=== PATIENT | female | born 1950 | race Caucasian/White ===

== ENCOUNTER → 2018-11-27 18:25 | Outpatient (CLI) | payer MEDICARE, SELFPAY ==
[2018-11-16 14:29] VITALS: BMI 27.8
[2018-11-27 18:48] LABS: Absolute Lymphocyte Count 2.73 X10^3/ul (0.83-4.51); Absolute Neutrophil Count 3.6 X10^3/uL (2.0-7.7); Basophil# 0.09 X10^3/uL; Basophil% 1.2 % (0-1); Eosinophil# 0.31 X10^3/uL; Eosinophils% 4.3 % (0-5); Hematocrit 42.6 % (37-47); Hemoglobin 14.1 g/dl (12.0-15.0); Lymphocyte # 2.73 X10^3/ul (4.0); Lymphocyte % 37.5 % (19-41); Mean Corp Hgb Conc 33.1 g/gl (32-36); Mean Corpuscular Hgb 31.8 pg (27.0-32.0); Mean Corpuscular Volume 95.9 fL (81-99); Monocyte# 0.57 X10^3/uL; Monocyte% 7.8 % (0-10); Neutrophil # 3.56 X10^3/uL (2.7-7.7); Neutrophil % 48.9 % (47-70); Platelet Count 251 K/mm3 (150-450); RBC Distribution Width SD 44.9 fl (35.1-43.9); Red Blood Count 4.44 M/mm3 (4.2-5.4); White Blood Count 7.3 K/mm3 (4.4-11.0)
[2018-11-27 18:50] LABS: POSITIVE COUNT NO; POSITIVE DIFFERENTIAL NO; POSITIVE MORPHOLOGY NO
[2018-11-27 18:59] LABS: ALB/GLOB Ratio 1.2 RATIO (0.9-2.4); AST(SGOT) 21 U/L (15-37); Alanine Aminotransfer ALT/SGPT 52 U/L (13-56); Albumin, Serum 3.8 g/dL (3.2-5.0); Alkaline Phosphatase 106 U/L (45-117); Anion Gap 8 (5-15); BUN 14 mg/dL (7-18); BUN/Creat Ratio 16.6 RATIO (10-20); Calcium,Total 9.3 mg/dL (8.5-10.1); Chloride 106 mmol/L (98-107); Cholesterol 256 mg/dL (200); Creatinine, Serum 0.84 mg/dL (0.55-1.02); EST Glomerular Filtration Rate 72 mL/min (>60); Est Glom Filt Rate - Afr Amer 87 mL/min (>60); Globulin 3.3 g/dL (2.2-4.2); Glucose 109 mg/dL (74-106); High Density Lipoprotein 53 mg/dL; Potassium 4.3 mmol/L (3.5-5.1); Protein, Total 7.1 g/dL (6.4-8.2); Sodium Level 142 mmol/L (136-145); Triglycerides 534 mg/dL
== END ==
PROVIDERS: Referring Provider Nurse Practitioner; Visit Provider Nurse Practitioner
DX: I10 Essential (primary) hypertension (principal)
CPT/HCPCS: 80053; 80061; 85025

== ENCOUNTER → 2019-10-27 | Outpatient (CLI) | payer MEDICARE, SELFPAY ==
[2019-10-27 18:10] VITALS: BMI 27.6
[2019-10-27 21:48] LABS: Absolute Lymphocyte Count 2.67 X10^3/uL (0.83-4.51); Absolute Neutrophil Count 6.3 X10^3/uL (2.0-7.7); Basophil# 0.08 X10^3/uL; Basophil% 0.8 % (0-1); Eosinophil# 0.33 X10^3/uL; Eosinophils% 3.3 % (0-5); Hematocrit 39.8 % (37-47); Hemoglobin 13.6 g/dL (12.0-15.0); Lymphocyte # 2.67 X10^3/ul (4.0); Lymphocyte % 26.5 % (19-41); Mean Corp Hgb Conc 34.2 g/dL (32-36); Mean Corpuscular Hgb 31.7 pg (27.0-32.0); Mean Corpuscular Volume 92.8 fL (81-99); Mean Platelet Vol. 12.4 fl (6.2-12.0); Monocyte# 0.65 X10^3/uL; Monocyte% 6.4 % (0-10); NRBC Flagged by Analyzer 0 % (0-5); Neutrophil # 6.33 X10^3/uL (2.7-7.7); Neutrophil % 62.7 % (47-70); Platelet Count 195 K/mm3 (150-450); RBC Distribution Width CV 12.2 % (11.6-14.6); RBC Distribution Width SD 41.7 fl (35.1-43.9); Red Blood Count 4.29 M/mm3 (4.2-5.4); White Blood Count 10.1 K/mm3 (4.4-11.0)
[2019-10-27 21:52] LABS: ALB/GLOB Ratio 1.1 RATIO (0.9-2.4); AST(SGOT) 23 U/L (15-37); Alanine Aminotransfer ALT/SGPT 45 U/L (13-56); Albumin, Serum 3.6 g/dL (3.2-5.0); Alkaline Phosphatase 105 U/L (45-117); Anion Gap 4 (5-15); BUN 23 mg/dL (7-18); BUN/Creat Ratio 23.1 RATIO (10-20); Calcium,Total 9.2 mg/dL (8.5-10.1); Chloride 107 mmol/L (98-107); Cholesterol 243 mg/dL (200); EST Glomerular Filtration Rate 59 mL/min (>60); Est Glom Filt Rate - Afr Amer 71 mL/min (>60); Globulin 3.2 g/dL (2.2-4.2); Glucose 278 mg/dL (74-106); High Density Lipoprotein 39 mg/dL; Potassium 4.3 mmol/L (3.5-5.1); Protein, Total 6.8 g/dL (6.4-8.2); Sodium Level 139 mmol/L (136-145); Thyroid Stim Hormone (TSH) 1.16 uIU/mL (0.358-3.74); Triglycerides 532 mg/dL
== END | disposition home or self-care (01) ==
PROVIDERS: Referring Provider Nurse Practitioner; Visit Provider Nurse Practitioner
DX: I10 Essential (primary) hypertension (principal); E78.5 Hyperlipidemia, unspecified; E11.65 Type 2 diabetes mellitus with hyperglycemia
CPT/HCPCS: 80053; 80061; 84443; 85025

== ENCOUNTER → 2019-12-09 21:09 | Outpatient (CLI) | payer MEDICARE, SELFPAY ==
[2019-12-09 15:02] VITALS: BMI 27.1
[2019-12-09 21:28] LABS: ALB/GLOB Ratio 1.2 RATIO (0.9-2.4); AST(SGOT) 19 U/L (15-37); Alanine Aminotransfer ALT/SGPT 28 U/L (13-56); Alkaline Phosphatase 88 U/L (45-117); Anion Gap 8 (5-15); BUN 16 mg/dL (7-18); BUN/Creat Ratio 16.4 RATIO (10-20); Calcium,Total 9.7 mg/dL (8.5-10.1); Chloride 106 mmol/L (98-107); Creatinine, Serum 0.97 mg/dL (0.55-1.02); EST Glomerular Filtration Rate 60 mL/min (>60); Est Glom Filt Rate - Afr Amer 73 mL/min (>60); Globulin 3.4 g/dL (2.2-4.2); Glucose 183 mg/dL (74-106); Magnesium 1.9 mg/dL (1.6-2.6); Potassium 3.8 mmol/L (3.5-5.1); Protein, Total 7.4 g/dL (6.4-8.2); Sodium Level 142 mmol/L (136-145)
== END ==
PROVIDERS: Visit Provider Nurse Practitioner
DX: R25.2 Cramp and spasm (principal)
CPT/HCPCS: 80053; 83735

== ENCOUNTER → 2020-10-15 22:46 | Outpatient (CLI) | payer MEDICARE, SELFPAY ==
[2020-10-15 18:26] VITALS: BMI 25.4
[2020-10-15 23:03] LABS: Absolute Neutrophil Count 4.6 X10^3/uL (2.0-7.7); Basophil# 0.11 X10^3/uL; Basophil% 1.2 % (0-1); Eosinophil# 0.45 X10^3/uL; Eosinophils% 4.9 % (0-5); Hemoglobin 14.4 g/dL (12.0-15.0); Lymphocyte % 35.9 % (19-41); Mean Corp Hgb Conc 32.7 g/dL (32-36); Mean Corpuscular Hgb 30.8 pg (27.0-32.0); Mean Corpuscular Volume 94.2 fL (81-99); Mean Platelet Vol. 11.9 fl (6.2-12.0); Monocyte# 0.69 X10^3/uL; Monocyte% 7.5 % (0-10); NRBC Flagged by Analyzer 0 % (0-5); Neutrophil # 4.62 X10^3/uL (2.7-7.7); Neutrophil % 50.2 % (47-70); Platelet Count 240 K/mm3 (150-450); RBC Distribution Width CV 12.3 % (11.6-14.6); RBC Distribution Width SD 42.7 fl (35.1-43.9); Red Blood Count 4.67 M/mm3 (4.2-5.4); White Blood Count 9.2 K/mm3 (4.4-11.0)
[2020-10-15 23:23] LABS: ALB/GLOB Ratio 1.3 RATIO (0.9-2.4); AST(SGOT) 20 U/L (15-37); Alanine Aminotransfer ALT/SGPT 28 U/L (13-56); Albumin, Serum 4.1 g/dL (3.2-5.0); Alkaline Phosphatase 84 U/L (45-117); Anion Gap 7 (5-15); BUN 24 mg/dL (7-18); BUN/Creat Ratio 26.1 RATIO (10-20); Calcium,Total 9.5 mg/dL (8.5-10.1); Chloride 104 mmol/L (98-107); Cholesterol 203 mg/dL (200); Creatinine, Serum 0.92 mg/dL (0.55-1.02); EST Glomerular Filtration Rate 64 mL/min (>60); Est Glom Filt Rate - Afr Amer 78 mL/min (>60); Globulin 3.1 g/dL (2.2-4.2); Glucose 132 mg/dL (74-106); High Density Lipoprotein 60 mg/dL; Magnesium 2.2 mg/dL (1.6-2.6); Potassium 3.7 mmol/L (3.5-5.1); Protein, Total 7.2 g/dL (6.4-8.2); Sodium Level 140 mmol/L (136-145); Thyroid Stim Hormone (TSH) 3.19 uIU/mL (0.358-3.74); Triglycerides 352 mg/dL; Very Low Density Lipoprotein 70 mg/dL (5-40)
[2020-10-18 21:20] LABS: Vitamin D 1,25-Dihydroxy 33.9 pg/mL (19.9-79.3)
== END ==
PROVIDERS: PCP Nurse Practitioner; Referring Provider Nurse Practitioner; Visit Provider Nurse Practitioner
DX: E11.65 Type 2 diabetes mellitus with hyperglycemia (principal); I10 Essential (primary) hypertension; E83.42 Hypomagnesemia; E55.9 Vitamin D deficiency, unspecified
CPT/HCPCS: 80053; 80061; 82652; 83735; 84443; 85025

== ENCOUNTER → 2021-05-09 | Outpatient (CLI) | payer MEDICARE, SELFPAY ==
[2021-05-09 22:04] LABS: ALB/GLOB Ratio 1.4 RATIO (0.9-2.4); AST(SGOT) 17 U/L (15-37); Alanine Aminotransfer ALT/SGPT 27 U/L (13-56); Albumin, Serum 3.8 g/dL (3.2-5.0); Alkaline Phosphatase 74 U/L (45-117); Anion Gap 7 (5-15); BUN 29 mg/dL (7-18); BUN/Creat Ratio 33.3 RATIO (10-20); Calcium,Total 8.7 mg/dL (8.5-10.1); Chloride 105 mmol/L (98-107); Creatinine, Serum 0.87 mg/dL (0.55-1.02); EST Glomerular Filtration Rate 68 mL/min (>60); Est Glom Filt Rate - Afr Amer 83 mL/min (>60); Globulin 2.8 g/dL (2.2-4.2); Glucose 109 mg/dL (74-106); Potassium 4.1 mmol/L (3.5-5.1); Protein, Total 6.6 g/dL (6.4-8.2); Sodium Level 139 mmol/L (136-145)
[2021-05-09 22:07] LABS: Hemoglobin A1c 6.7 % (3.8-5.6)
== END | disposition home or self-care (01) ==
PROVIDERS: PCP Nurse Practitioner; Visit Provider Nurse Practitioner
DX: E11.65 Type 2 diabetes mellitus with hyperglycemia (principal); I10 Essential (primary) hypertension
CPT/HCPCS: 80053; 83036

== ENCOUNTER → 2021-09-16 | Outpatient (CLI) | payer MEDICARE, SELFPAY ==
[2021-09-16 22:00] LABS: ALB/GLOB Ratio 1.2 RATIO (0.9-2.4); AST(SGOT) 19 U/L (15-37); Alanine Aminotransfer ALT/SGPT 37 U/L (13-56); Albumin, Serum 3.9 g/dL (3.2-5.0); Alkaline Phosphatase 75 U/L (45-117); Anion Gap 7 (5-15); BUN 28 mg/dL (7-18); BUN/Creat Ratio 33.2 RATIO (10-20); Calcium,Total 9.4 mg/dL (8.5-10.1); Chloride 104 mmol/L (98-107); Cholesterol 181 mg/dL (200); Creatinine, Serum 0.84 mg/dL (0.55-1.02); EST Glomerular Filtration Rate 71 mL/min (>60); Est Glom Filt Rate - Afr Amer 86 mL/min (>60); Globulin 3.2 g/dL (2.2-4.2); Glucose 127 mg/dL (74-106); High Density Lipoprotein 54 mg/dL; Potassium 4.3 mmol/L (3.5-5.1); Protein, Total 7.1 g/dL (6.4-8.2); Sodium Level 140 mmol/L (136-145); Triglycerides 292 mg/dL; Very Low Density Lipoprotein 58 mg/dL (5-40)
[2021-09-16 22:02] LABS: Absolute Lymphocyte Count 2.83 X10^3/uL (0.83-4.51); Basophil# 0.08 X10^3/uL; Basophil% 0.9 % (0-1); Eosinophil# 0.38 X10^3/uL; Eosinophils% 4.3 % (0-5); Hematocrit 42.2 % (37-47); Lymphocyte # 2.83 X10^3/ul (0.83-4.51); Lymphocyte % 31.7 % (19-41); Mean Corp Hgb Conc 33.2 g/dL (32-36); Mean Corpuscular Hgb 31.2 pg (27.0-32.0); Mean Platelet Vol. 12.1 fl (6.2-12.0); Monocyte# 0.64 X10^3/uL; Monocyte% 7.2 % (0-10); NRBC Flagged by Analyzer 0 % (0-5); Neutrophil # 4.95 X10^3/uL (2.7-7.7); Neutrophil % 55.5 % (47-70); Platelet Count 267 K/mm3 (150-450); RBC Distribution Width CV 12.6 % (11.6-14.6); RBC Distribution Width SD 43.6 fl (35.1-43.9); Red Blood Count 4.49 M/mm3 (4.2-5.4); White Blood Count 8.9 K/mm3 (4.4-11.0)
[2021-09-16 22:25] LABS: Hemoglobin A1c 6.6 % (3.8-5.6)
== END | disposition home or self-care (01) ==
PROVIDERS: PCP Nurse Practitioner; Referring Provider Nurse Practitioner; Visit Provider Nurse Practitioner
DX: E78.2 Mixed hyperlipidemia (principal); E11.65 Type 2 diabetes mellitus with hyperglycemia; I10 Essential (primary) hypertension
CPT/HCPCS: 80053; 80061; 83036; 85025

== ENCOUNTER → 2022-08-25 | Outpatient (CLI) | payer MEDICARE, SELFPAY ==
[2022-08-25 21:50] LABS: Absolute Lymphocyte Count 2.62 X10^3/uL (0.83-4.51); Absolute Neutrophil Count 4.8 X10^3/uL (2.0-7.7); Basophil# 0.09 X10^3/uL; Basophil% 1.1 % (0-1); Eosinophil# 0.21 X10^3/uL; Eosinophils% 2.5 % (0-5); Hematocrit 42.4 % (37-47); Hemoglobin 14.4 g/dL (12.0-15.0); Lymphocyte # 2.62 X10^3/ul (0.83-4.51); Lymphocyte % 31.5 % (19-41); Mean Corpuscular Hgb 31.3 pg (27.0-32.0); Mean Corpuscular Volume 92.2 fL (81-99); Mean Platelet Vol. 11.7 fl (6.2-12.0); Monocyte# 0.62 X10^3/uL; Monocyte% 7.4 % (0-10); NRBC Flagged by Analyzer 0 % (0-5); Neutrophil # 4.75 X10^3/uL (2.7-7.7); Platelet Count 313 K/mm3 (150-450); RBC Distribution Width CV 12.4 % (11.6-14.6); White Blood Count 8.3 K/mm3 (4.4-11.0)
[2022-08-25 21:59] LABS: ALB/GLOB Ratio 1.2 RATIO (0.9-2.4); AST(SGOT) 19 U/L (15-37); Alanine Aminotransfer ALT/SGPT 30 U/L (13-56); Alkaline Phosphatase 88 U/L (45-117); Anion Gap 5 (5-15); BUN 28 mg/dL (7-18); BUN/Creat Ratio 29.9 RATIO (10-20); Calcium,Total 9.2 mg/dL (8.5-10.1); Chloride 104 mmol/L (98-107); Cholesterol 202 mg/dL (200); Creatinine, Serum 0.94 mg/dL (0.55-1.02); EST Glomerular Filtration Rate 63 mL/min (>60); Est Glom Filt Rate - Afr Amer 76 mL/min (>60); Globulin 3.2 g/dL (2.2-4.2); Glucose 142 mg/dL (74-106); High Density Lipoprotein 51 mg/dL; Protein, Total 7.2 g/dL (6.4-8.2); Sodium Level 137 mmol/L (136-145); Triglycerides 273 mg/dL; Very Low Density Lipoprotein 55 mg/dL (5-40)
[2022-08-25 22:10] LABS: Hemoglobin A1c 6.8 % (3.8-5.6)
== END | disposition home or self-care (01) ==
PROVIDERS: PCP Nurse Practitioner; Visit Provider Nurse Practitioner
DX: I10 Essential (primary) hypertension (principal); E11.65 Type 2 diabetes mellitus with hyperglycemia; E78.2 Mixed hyperlipidemia
CPT/HCPCS: 80053; 80061; 83036; 85025

== ENCOUNTER → 2023-04-13 | Outpatient (CLI) | payer MEDICARE, SELFPAY ==
[2023-04-13 21:08] LABS: ALB/GLOB Ratio 1.2 RATIO (0.9-2.4); AST(SGOT) 19 U/L (15-37); Alanine Aminotransfer ALT/SGPT 20 U/L (13-56); Albumin, Serum 3.7 g/dL (3.2-5.0); Alkaline Phosphatase 79 U/L (45-117); Anion Gap 7 (5-15); BUN 23 mg/dL (7-18); BUN/Creat Ratio 22.1 RATIO (10-20); Calcium,Total 9.3 mg/dL (8.5-10.1); Chloride 105 mmol/L (98-107); Creatinine, Serum 1.04 mg/dL (0.55-1.02); EST Glomerular Filtration Rate 55 mL/min (>60); Est Glom Filt Rate - Afr Amer 67 mL/min (>60); Globulin 3.1 g/dL (2.2-4.2); Glucose 205 mg/dL (74-106); Potassium 4.1 mmol/L (3.5-5.1); Protein, Total 6.8 g/dL (6.4-8.2); Sodium Level 141 mmol/L (136-145); Uric Acid 4.3 mg/dL (2.6-6.0)
[2023-04-13 21:28] LABS: Absolute Lymphocyte Count 1.94 X10^3/uL (0.83-4.51); Absolute Neutrophil Count 4.4 X10^3/uL (2.0-7.7); Basophil# 0.09 X10^3/uL; Basophil% 1.3 % (0-1); Eosinophil# 0.25 X10^3/uL; Eosinophils% 3.5 % (0-5); Hematocrit 43.1 % (37-47); Hemoglobin 14.3 g/dL (12.0-15.0); Lymphocyte # 1.94 X10^3/ul (0.83-4.51); Lymphocyte % 26.9 % (19-41); Mean Corp Hgb Conc 33.2 g/dL (32-36); Mean Corpuscular Hgb 31.6 pg (27.0-32.0); Mean Corpuscular Volume 95.4 fL (81-99); Mean Platelet Vol. 12.3 fl (6.2-12.0); Monocyte# 0.53 X10^3/uL; Monocyte% 7.4 % (0-10); NRBC Flagged by Analyzer 0 % (0-5); Neutrophil # 4.37 X10^3/uL (2.7-7.7); Neutrophil % 60.6 % (47-70); Platelet Count 232 K/mm3 (150-450); RBC Distribution Width CV 12.3 % (11.6-14.6); Red Blood Count 4.52 M/mm3 (4.2-5.4); White Blood Count 7.2 K/mm3 (4.4-11.0)
[2023-04-13 21:49] LABS: Hemoglobin A1c 7.2 % (3.8-5.6)
== END | disposition home or self-care (01) ==
PROVIDERS: PCP Nurse Practitioner; Visit Provider Nurse Practitioner
DX: E11.65 Type 2 diabetes mellitus with hyperglycemia (principal); I10 Essential (primary) hypertension; M19.90 Unspecified osteoarthritis, unspecified site; E78.2 Mixed hyperlipidemia
CPT/HCPCS: 80053; 83036; 84550; 85025

== ENCOUNTER → 2024-01-14 | Outpatient (CLI) | payer MEDICARE, SELFPAY ==
[2024-01-14 21:43] LABS: Absolute Lymphocyte Count 2.26 X10^3/uL (0.83-4.51); Absolute Neutrophil Count 5.1 X10^3/uL (2.0-7.7); Basophil% 1.2 % (0-1); Eosinophil# 0.33 X10^3/uL; Eosinophils% 3.9 % (0-5); Hematocrit 42.3 % (37-47); Lymphocyte # 2.26 X10^3/ul (0.83-4.51); Lymphocyte % 26.9 % (19-41); Mean Corp Hgb Conc 33.1 g/dL (32-36); Mean Corpuscular Hgb 30.5 pg (27.0-32.0); Mean Corpuscular Volume 92.2 fL (81-99); Mean Platelet Vol. 12.2 fl (6.2-12.0); Monocyte% 7.1 % (0-10); NRBC Flagged by Analyzer 0 % (0-5); Neutrophil # 5.08 X10^3/uL (2.7-7.7); Neutrophil % 60.4 % (47-70); Platelet Count 251 K/mm3 (150-450); RBC Distribution Width CV 12.4 % (11.6-14.6); RBC Distribution Width SD 41.7 fl (35.1-43.9); Red Blood Count 4.59 M/mm3 (4.2-5.4); White Blood Count 8.4 K/mm3 (4.4-11.0)
[2024-01-14 22:06] LABS: ALB/GLOB Ratio 1.3 RATIO (0.9-2.4); AST(SGOT) 19 U/L (15-37); Alanine Aminotransfer ALT/SGPT 25 U/L (13-56); Alkaline Phosphatase 84 U/L (45-117); Anion Gap 10 (5-15); BUN 21 mg/dL (7-18); BUN/Creat Ratio 21.8 RATIO (10-20); Calcium,Total 9.5 mg/dL (8.5-10.1); Chloride 103 mmol/L (98-107); Cholesterol 192 mg/dL (200); Creatinine, Serum 0.96 mg/dL (0.55-1.02); EST Glomerular Filtration Rate 60 mL/min (>60); Est Glom Filt Rate - Afr Amer 73 mL/min (>60); Globulin 3.1 g/dL (2.2-4.2); Glucose 158 mg/dL (74-106); High Density Lipoprotein 56 mg/dL; Protein, Total 7.1 g/dL (6.4-8.2); Sodium Level 141 mmol/L (136-145); Triglycerides 275 mg/dL; Very Low Density Lipoprotein 55 mg/dL (5-40)
== END | disposition home or self-care (01) ==
PROVIDERS: PCP Nurse Practitioner; Referring Provider Nurse Practitioner; Visit Provider Nurse Practitioner
DX: I10 Essential (primary) hypertension (principal); E11.65 Type 2 diabetes mellitus with hyperglycemia; E78.5 Hyperlipidemia, unspecified
CPT/HCPCS: 80053; 80061; 85025

== ENCOUNTER → 2024-09-28 | Outpatient (CLI) | payer MEDICARE, SELFPAY | END | disposition home or self-care (01) | PROVIDERS: PCP Nurse Practitioner; Referring Provider Nurse Practitioner; Visit Provider Nurse Practitioner | DX: N30.90 Cystitis, unspecified without hematuria (principal) | CPT/HCPCS: 87077; 87086; 87088; 87186 ==

== ENCOUNTER → 2024-11-28 | Outpatient (CLI) | payer MEDICARE, SELFPAY | END | disposition home or self-care (01) | PROVIDERS: PCP Nurse Practitioner; Referring Provider Nurse Practitioner; Visit Provider Nurse Practitioner | DX: L73.9 Follicular disorder, unspecified (principal) | CPT/HCPCS: 87070; 87077; 87186; 87205 ==

== ENCOUNTER → 2025-01-06 | Outpatient (CLI) | payer MEDICARE, SELFPAY | END | disposition home or self-care (01) | LOC: OLS.AHF 22:12 → LABSPEC 01-07 09:47 | PROVIDERS: PCP Nurse Practitioner; Referring Provider Nurse Practitioner; Visit Provider Nurse Practitioner | DX: J34.89 Other specified disorders of nose and nasal sinuses (principal); Z22.322 Carrier or suspected carrier of Methicillin resistant Staphylococcus aureus; R04.0 Epistaxis | CPT/HCPCS: 87641 ==

== ENCOUNTER → 2025-06-28 | Outpatient (CLI) | payer MEDICARE, SELFPAY ==
[2025-06-28 23:01] LABS: Hematocrit 37.7 % (37-47); Hemoglobin 12.5 g/dL (12.0-15.0); Immature Granulocytes Count 0.020 X10^3/uL (0.0-0.0); Mean Corp Hgb Conc 33.2 g/dL (32-36); Mean Corpuscular Volume 97.7 fL (81-99); Mean Platelet Vol. 12.9 fl (6.2-12.0); NRBC Flagged by Analyzer 0 % (0-5); Platelet Count 174 K/mm3 (150-450); RBC Distribution Width CV 12.8 % (11.6-14.6); RBC Distribution Width SD 45.6 fl (35.1-43.9); Red Blood Count 3.86 M/mm3 (4.2-5.4); White Blood Count 7.4 K/mm3 (4.4-11.0)
[2025-06-28 23:18] LABS: AST(SGOT) 28 U/L (<=31); Alanine Aminotransfer ALT/SGPT 20 U/L (<=34); Albumin, Serum 4.3 g/dL (3.4-4.8); Alkaline Phosphatase 93 U/L (35-104); Anion Gap 13 (5-15); BUN 34 mg/dL (4-19); BUN/Creat Ratio 31.7 RATIO (10-20); Calcium,Total 9.7 mg/dL (7.6-11.0); Carbon Dioxide 24.1 mmol/L (21.0-32.0); Chloride 104 mmol/L (98-108); Cholesterol 151 mg/dL (<=200); Globulin 2.7 g/dL (2.2-4.2); Glucose 160 mg/dL (70-99); Low Density Lipoprotein Calc. 22 mg/dL; Potassium 4.5 mmol/L (3.3-5.1); Triglycerides 381 mg/dL; Very Low Density Lipoprotein 76 mg/dL (5-40); cholesterol:hdl ratio screen 2.87
== END | disposition home or self-care (01) ==
LOC: LABSPEC 22:35
PROVIDERS: PCP Nurse Practitioner; Visit Provider Nurse Practitioner
DX: E87.6 Hypokalemia (principal); E11.65 Type 2 diabetes mellitus with hyperglycemia; E78.2 Mixed hyperlipidemia; I10 Essential (primary) hypertension; N28.9 Disorder of kidney and ureter, unspecified
CPT/HCPCS: 80053; 80061; 83036; 85025

== ENCOUNTER → 2025-08-28 | Outpatient (CLI) | payer MEDICARE, SELFPAY ==
--- OUTSIDE RECORDS SUMMARY | 2025-08-28 22:25 | XMS RPT_ITS | CCD ---
Author Organization [facility] CliniSypr Care Team Providers Care Software Development Specialist Name Role Phone Levy Everett MD Unavailable [phone] Jorge [facility] [employer]USTRIAL SALES REPRESENTATIVE, Soco A Unavailable [phone] Calzada [facility] INDUSTRIAL SALES REPRESENTATIVE, Chandler L Primary Care Provide r Chava Edwards MD Unavailable ELIANA VALENCIA Attending Unavailabl e CALZADA, CHANDLER L Primary Care Unavailable ABHI CORBIN Attending Unavailable ABHI CORBIN Admitting Unavailable CALZADA, CHANDLER L Primary Care Unavailable Calzada [facility] INDUSTRIAL SALES REPRESENTATIVE, Chandler L Primary Care Provide r Dima Cage MD Unavailable Nicole Knott Unavailable UnavailChio Barger MD Unavailable Chio Motley MD Unavailable Unavailable ZHENG, CHANDLER Primary Care Unavailable MARLINE RODRÍGUEZ MD Attending Unavailable Chio Motley MD Unavailable Brenda Cortes MD Unavailable [phone] Chio Motley MD Unavailable Zheng PRESIDENT [facility] INDUSTRIAL SALES REPRESENTATIVE, Chandler Nyla Primary Care Provide r Chava Edwards MD Unavailable Dima Cage MD Unavailable [phone] Nicole Knott Unavailable Chio Le MD Unavailable [phone] Brenda Cortes MD Unavailable [phone] Chio Motley MD Unavailable Unavailable DERICK GEORGES Attending Unavailable DIMA CAGE Referring Unavailable CALZADA, CHANDLER L Primary Care Unavailable LI, JOSIE H Admitting Unavailable LI, JOSIE H Attending Unavailable CALZADA, CHANDLER L Primary Care Unavailable LI, JOSIE H Referring Unavailable CALZADA, CHANDLER L Primary Care Unavailable AGUSTINA WOODWARD Attending Unavailable CALZADA, CHANDLER L Primary Care Unavailable LI, JOSIE H Referring Unavailable CALZADA, CHANDLER L Primary Care Unavailable [place] TROUBLE LINEMAN-C, Chandler Primary Care Provider Calzada TROUBLE LINEMAN-C, Chandler Attending Provider Calzada TROUBLE LINEMAN-C, Chandler Referring Provider JOSE, BRENDA A Referring Unavailable CALZADA, CHANDLER L Primary Care Unavailable RICKEY CAMACHO Referring Unavailable CALZADA, CHANDLER L Primary Care Unavailable RUSTERHOLTZ, BRENDA A Referring Unavailable CALZADA, CHANDLER L Primary Care Unavailable RUSTERHOLTZ, BRENDA A Referring Unavailable CALZADA, CHANDLER L Primary Care Unavailable RUSTERHOLTZ, BRENDA A Attending Unavailable CALZADA, CHANDLER L Primary Care Unavailable RUSTERHOLTZ, BRENDA A Referring Unavailable RUSTERHOLTZ, BRENDA A Attending Unavailable RUSTERHOLTZ, BRENDA A Referring Unavailable CALZADA, CHANDLER L Primary Care Unavailable RUSTERHOLTZ, BRENDA A Attending Unavailable CALZADA, CHANDLER L Primary Care Unavailable CALZADA, CHANDLER L Primary Care Unavailable Calzada TROUBLE LINEMAN, Chandler Referring Unavailable Calzada TROUBLE LINEMAN, Chandler Primary Care Unavailable Calzada TROUBLE LINEMAN, Chandler Attending Unavailable Calzada TROUBLE LINEMAN, Chandler Referring Unavailable Calzada TROUBLE LINEMAN, Chandler Primary Care Unavailable Calzada TROUBLE LINEMAN, Chandler Attending Unavailable Calzada TROUBLE LINEMAN, Chandler Attending Unavailable Calzada TROUBLE LINEMAN, Chandler Referring Unavailable Calzada TROUBLE LINEMAN, Chandler Primary Care Unavailable Calzada TROUBLE LINEMAN, Chandler Primary Care Unavailable Calzada TROUBLE LINEMAN, Chandler Attending Unavailable CALZADA, CHANDLER L Primary Care Unavailable RUSTERHOLTZ, BRENDA A Attending Unavailable CALZADA, CHANDLER L Primary Care Unavailable CALZADA, CHANDLER L Primary Care Unavailable RUSTERHOLTZ, BRENDA A Referring Unavailable CALZADA, CHANDLER L Primary Care Unavailable LI, JOSIE H Referring Unavailable CALZADA, CHANDLER L Primary Care Unavailable LI, JOSIE H Referring Unavailable CALZADA, CHANDLER L Primary Care Unavailable LI, JOSIE H Referring Unavailable CALZADA, CHANDLER L Primary Care Unavailable LI, JOSIE H Referring Unavailable CALZADA, CHANDLER L Primary Care Unavailable [facility] Referring Unavailable DELONTE MOLINA Attending Unavailable CALZADA, CHANDLER L Primary Care Unavailable LI, JOSIE H Attending Unavailable CALZADA, CHANDLER L Primary Care Unavailable [facility] Referring Unavailable CALZADA, CHANDLER L Primary Care Unavailable [facility] Attending Unavailable [facility] Referring Unavailable CALZADA, CHANDLER L Primary Care Unavailable LI, JOSIE H Referring Unavailable RICKEY CAMACHO Attending Unavailable CALZADA, CHANDLER L Primary Care Unavailable [facility] Referring Unavailable CALZADA, CHANDLER L Primary Care Unavailable [facility] Referring Unavailable CALZADA, CHANDLER L Primary Care Unavailable LI, JOSIE H Referring Unavailable CALZADA, CHANDLER L Primary Care Unavailable [facility] Referring Unavailable CALZADA, CHANDLER L Primary Care Unavailable LI, JOSIE H Referring Unavailable CALZADA, CHANDLER L Primary Care Unavailable LI, JOSIE H Referring Unavailable CALZADA, CHANDLER L Primary Care Unavailable LI, JOSIE H Referring Unavailable CALZADA, CHANDLER L Primary Care Unavailable LI, JOSIE H Referring Unavailable CALZADA, CHANDLER L Primary Care Unavailable [facility] Referring Unavailable CALZADA, CHANDLER L Primary Care Unavailable LI, JOSIE H Referring Unavailable CALZADA, CHANDLER L Primary Care Unavailable LI, JOSIE H Referring Unavailable CALZADA, CHANDLER L Primary Care Unavailable LI, JOSIE H Referring Unavailable CALZADA, CHANDLER L Primary Care Unavailable LI, JOSIE H Referring Unavailable CALZADA, CHANDLER L Primary Care Unavailable LI, JOSIE H Referring Unavailable CALZADA, CHANDLER L Primary Care Unavailable LI, JOSIE H Referring Unavailable CALZADA, CHANDLER L Primary Care Unavailable LI, JOSIE H Referring Unavailable CALZADA, CHANDLER L Primary Care Unavailable LI, JOSIE H Referring Unavailable CALZADA, CHANDLER L Primary Care Unavailable LI, JOSIE H Referring Unavailable CALZADA, CHANDLER L Primary Care Unavailable LI, JOSIE H Referring Unavailable CALZADA, CHANDLER L Primary Care Unavailable LI, JOSIE H Referring Unavailable CALZADA, CHANDLER L Primary Care Unavailable LI, JOSIE H Referring Unavailable CALZADA, CHANDLER L Primary Care Unavailable LI, JOSIE H Referring Unavailable CALZADA, CHANDLER L Primary Care Unavailable LI, JOSIE H Referring Unavailable CALZADA, CHANDLER L Primary Care Unavailable LI, JOSIE H Referring Unavailable CALZADA, CHANDLER L Primary Care Unavailable LI, JOSIE H Referring Unavailable CALZADA, CHANDLER L Primary Care Unavailable [facility] Attending Unavailable [facility] Referring Unavailable CALZADA, CHANDLER L Primary Care Unavailable [facility] Referring Unavailable CALZADA, CHANDLER L Primary Care Unavailable [facility] Referring Unavailable CALZADA, CHANDLER L Primary Care Unavailable [facility] Referring Unavailable CALZADA, CHANDLER L Primary Care Unavailable [facility] Referring Unavailable CALZADA, CHANDLER L Primary Care Unavailable CALZADA, CHANDLER L Primary Care Unavailable TRES, CHAVA Attending Unavailable TRES, CHAVA Referring Unavailable CALZADA, CHANDLER L Primary Care Unavailable CALZADA, CHANDLER L Primary Care Unavailable LI, JOSIE H Referring Unavailable RICKEY CAMACHO Attending Unavailable CALZADA, CHANDLER L Primary Care Unavailable [facility] Referring Unavailable CALZADA, CHANDLER L Primary Care Unavailable LI, JOSIE H Referring Unavailable LI, JOSIE H Attending Unavailable CALZADA, CHANDLER L Primary Care Unavailable [facility] Referring Unavailable CALZADA, CHANDLER L Primary Care Unavailable TRES, CHAVA Referring Unavailable CLAZADA, CHANDLER L Primary Care Unavailable TRES, CHAVA Attending Unavailable TRES, CHAVA Referring Unavailable CALZADA, CHANDLER L Primary Care Unavailable TRES, CHAVA Referring Unavailable CALZADA, CHANDLER L Primary Care Unavailable TRES, CHAVA Referring Unavailable CALZADA, CHANDLER L Primary Care Unavailable TRES, CHAVA Referring Unavailable CALZADA, CHANDLER L Primary Care Unavailable [facility] Referring Unavailable [facility] Attending Unavailable Dima Cage MD Unavailable [phone] Brenda Cortes MD Unavailable Allergies Allergy Classification Reported Allergen(s) Allergy Type Date of Onset Reaction(s) Facility (2 sources) PLANT POLLENS; Translations: [PLANT POLLENS] allergy to substance 0 head congestion [facility] Work Phone: (20 sources) nickel; Translations: [NICKEL] Drug Allergy 2 Dermatitis [facility] Work Phone: (20 sources) levoFLOXacin; Translations: [LEVOFLOXACIN] Drug Allergy 9 Myalgia [facility] (20 sources) Aluminum; Translations: [ALUMINUM] Propensity to adverse reactions 4 [facility] (1 source) levoFLOXacin Drug Allergy 5 [facility] Repository Medications Current Medications Medication Drug Class(es) Dates Sig (Normalized) Sig (Original) acetaminophen 325 mg oral tablet (1 source) Start: 08-24-2024 take 1 tablet by mouth every four hours as needed 650 mg, oral, Every 4 hours PRN, pain mild (1-3), first line, Starting on Thu08/24/24 at 0938, Recovery (only), When able to take oral medications., If ordered PRN for pain, nurse is permitted to administer this medication for higher pain scores based on patient preference? Yes amoxicillin 875 mg / clavulanate 125 mg oral tablet (20 sources) Penicillin-class Antibacterial Start: 09-28-2024 End: 11-28-2024 Amoxicillin-Pot Clavulanate 875-125 mg tablet Active 1 {tbl} PO TWICE A DAY November 28, 2024 5:04pm Start: 07-03-2023 End: 09-30-2023 Amoxicillin-Pot Clavulanate 875-125 mg tablet Discontinued 1 {tbl} PO TWICE A DAY September 10, 2023 5:56pm September 30, 2023 7:06pm Start: 07-03-2023 End: 09-30-2023 take 1 tablet by mouth twice daily Amoxicillin-Pot Clavulanate Discontinued 1 TABLET PO TWICE A DAY September 10, 2023 5:56pm September 30, 2023 7:06pm Start: 06-06-2020 End: 10-02-2021 Amoxicillin-Pot Clavulanate 875-125 mg tablet Discontinued 1 {tbl} PO TWICE A DAY September 16, 2021 8:03pm October 02, 2021 6:37pm Start: 06-06-2020 End: 10-02-2021 take 1 tablet by mouth twice daily Amoxicillin-Pot Clavulanate Discontinued 1 TABLET PO TWICE A DAY September 16, 2021 8:03pm October 02, 2021 6:37pm Start: 04-13-2019 End: 12-09-2019 Amoxicillin-Pot Clavulanate 875-125 mg tablet Discontinued 1 {tbl} PO TWICE A DAY October 27, 2019 7:17pm December 09, 2019 3:20pm Start: 04-13-2019 End: 12-09-2019 take 1 tablet by mouth twice daily Amoxicillin-Pot Clavulanate Discontinued 1 TABLET PO TWICE A DAY October 27, 2019 7:17pm December 09, 2019 3:20pm anastrozole 1 mg oral tablet (10 sources) Aromatase Inhibitor Start: 11-21-2024 End: 05-23-2026 take 1 tablet by mouth once daily in the evening anastrozole (Arimidex) 1 mg tablet Indications: Malignant neoplasm of upper-inner quadrant of left breast in female, estrogen receptor negative Take 1 tablet (1 mg total) by mouth once daily. Swallow whole with a drink of water. 90 tablet 3 05/25/2025 1:25 PM EDT 05/23/2025 05/23/2026 Active atropine sulfate 0.025 mg / diphenoxylate hydrochloride 2.5 mg oral tablet (20 sources) Anticholinergic, Cholinergic Muscarinic Antagonist, Antidiarrheal Start: 01-26-2025 End: 02-25-2025 take 2 tablets by mouth four times daily as needed for diarrhea diphenoxylate-atr opine (LomotiL) 2.5-0.025 mg tablet Indications: CLL (chronic lymphocytic leukemia) (Multi) Take 2 tablets by mouth 4 times a day as needed for diarrhea. 240 tablet 5 01/26/2025 02/25/2025 Active Start: 05-03-2024 End: 09-12-2024 take 1 tablet by mouth four times daily as needed for diarrhea diphenoxylate-atropine (LomotiL) 2.5-0.025 mg tablet Indications: Malignant neoplasm of upper-inner quadrant of left breast in female, estrogen receptor negative Take 1 tablet by mouth 4 times a day as needed for diarrhea. 30 tablet 06/27/2024 09/12/2024 Discontinued (Med List Cleanup) bisacodyl 5 mg delayed release oral tablet (17 sources) Stimulant Laxative Start: 06-08-2024 End: 09-12-2024 take 2 tablets by mouth once daily as needed for constipation bisacodyl (Dulcolax) 5 mg EC tablet Indications: Malignant neoplasm of upper-inner quadrant of left breast in female, estrogen receptor negative Take 2 tablets (10 mg) by mouth once daily as needed for constipation. Do not crush, chew, or split. 30 tablet 06/08/2024 09/12/2024 Discontinued (Med List Cleanup) doxycycline hyclate 100 mg oral capsule (1 source) Tetracycline-class Drug Start: 12-01-2024 take 1 capsule by mouth twice daily Doxycycline Hyclate 100 mg capsule Active 100 mg PO TWICE A DAY December 01, 2024 12:00am empagliflozin 25 mg oral tablet (20 sources) Sodium-Glucose Cotransporter 2 Inhibitor Start: 12-09-2019 End: 09-28-2024 take 1 tablet by mouth once daily Empagliflozin (Jardiance) 25 mg tablet Active 25 mg PO DAILY September 28, 2024 8:45pm furosemide 20 mg oral tablet (20 sources) Loop Diuretic Start: 08-08-2024 End: 02-04-2025 take 1 tablet by mouth once daily as needed for edema furosemide (Lasix) 20 mg tablet Indications: Hypokalemia Take 1 tablet (20 mg) by mouth once daily as needed (leg edema). 90 tablet 1 08/08/2024 Active GENERIC EXTERNAL MEDICATION (11 sources) End: 07-25-2024 take 1 tablet by mouth once daily GENERIC EXTERNAL MEDICATION Take 1 tablet by mouth once daily. Triflexarin: 200 mcg selenium, 800 mg barrett/tumeric, 40mg cartilage, 10 mg collagen, 220mg calcium 07/25/2024 Discontinued (Therapy completed) take 1 tablet by mouth once syeda y GENERIC EXTERNAL MEDICATION Take 1 tablet by mouth once daily. Triflexarin: 200 mcg selenium, 800 mg barrett/tumeric, 40mg cartilage, 10 mg collagen, 220mg calcium Active hydroCHLOROthiazide 12.5 mg / losartan potassium 50 mg oral tablet (20 sources) Thiazide Diuretic, Angiotensin 2 Receptor Len Start: 09-10-2023 End: 09-12-2024 Losartan-Hydrochlorothiazide 50-12.5 mg tablet Active 1 {tbl} PO daily July 12, 2024 12:00am Start: 09-10-2023 End: 09-30-2023 take 1 tablet by mouth once daily Losartan-Hydrochlorothiazide Active 1 TA BLET PO DAILY September 30, 2023 7:08pm losartan 50 mg t ablet 50 mg, hydroCHLOROthiazide 12.5 mg tablet 12.5 mg Take by mouth once daily. Active 0.5 ml HYDROmorphone hydrochloride 1 mg/ml prefilled syringe (2 sources) Opioid Agonist Start: 08-24-2024 0.5 mg, intrav enous, Every 5 min PRN, pain severe (7-10), first line, Starting on Thu08/24/24 at 0938, Recovery (only), Max total of 4 mg regardless of dose. Start: 08-24-2024 0.2 mg, intrav enous, Every 5 min PRN, pain moderate (4-6), first line, Starting on Thu08/24/24 at 0938, Recovery (only), Max total of 4 mg regardless of dose. labetalol hydrochloride 5 mg/ml injectable solution (1 source) beta-Adrenergic Len Start: 08-24-2024 5 mg, intravenous, Administer over 1 Minutes, Once as needed, systolic blood pressure greater than 180 mmHg, dystolic blood pressure greater than 100 mmHg and heart rate greater than 60 BPM, Starting on Thu08/24/24 at 0938, For 1 dose, Recovery (only) lidocaine 25 mg/ml / prilocaine 25 mg/ml topical cream (20 sources) Antiarrhythmic, Amide Local Anesthetic Start: 03-23-2024 lidocaine-prilocaine (Emla) 2.5-2.5 % cream 03/23/2024 Active Start: 03-23-2024 lidocaine-pril ocaine (Emla) 2.5-2.5 % cream Apply topically 1 time if needed for mild pain (1 - 3) (30-60 minutes prior to blood draw from port) for up to 1 dose. 03/23/2024 Active Start: 03-23-2024 End: 03-23-2024 lidocaine-prilocaine (Emla) 2.5-2.5 % cream Indications: Malignant neoplasm of upper-inner quadrant of left breast in female, estrogen receptor negative (Multi) Apply topically 1 time if needed for mild pain (1 - 3) (30-60 minutes prior to blood draw from port) for up to 1 dose. 250 g 1 03/23/2024 03/23/2024 Active meloxicam 15 mg oral tablet (20 sources) Nonsteroidal Anti-inflammatory Drug Start: 03-29-2024 End: 07-12-2024 take 1 tablet by mouth once daily Meloxicam 15 mg tablet Active 15 mg PO DAILY July 12, 2024 3:37pm Start: 04-25-2019 End: 01-14-2024 take 1 tablet by mouth once daily Meloxicam 15 mg tablet Discontinued 15 mg PO daily November 04, 2022 3:54pm January 14, 2024 3:38pm 2 ml ondansetron 2 mg/ml injection (20 sources) Serotonin-3 Receptor Antagonist Start: 08-24-2024 4 mg, intravenous, O nce as needed, nausea/vomiting, first line, Starting on Thu08/24/24 at 0938, For 1 dose, Recovery (only), When administering via IV Push, administer over 3-5 minutes. Start: 03-23-2024 End: 09-12-2024 take 1 tablet by mouth every eight hours for nausea ondansetron (Zofran) 8 mg tablet Indications: Malignant neoplasm of upper-inner quadrant of left breast in female, estrogen receptor negative Take 1 tablet (8 mg) by mouth every 8 hours if needed for nausea or vomiting. 30 tablet 3 03/23/2024 09/12/2024 Discontinued (Med List Cleanup) oxyCODONE hydrochloride 5 mg oral tablet (2 sources) Opioid Agonist Start: 08-24-2024 take 1 tablet by mouth every four hours as needed 10 mg, oral, Every 4 hours PRN, pain severe (7-10), second line, Starting on Thu08/24/24 at 0938, Recovery (only), When able to take oral medications., If ordered PRN for pain, nurse is permitted to administer this medication for higher pain scores based on patient preference? Yes Start: 08-24-2024 take 1 tablet by ruy th every four hours as needed 5 mg, oral, Every 4 hours PRN, pain moderate (4-6), second line, Starting on Thu08/24/24 at 0938, Recovery (only), When able to take oral medications., If ordered PRN for pain, nurse is permitted to administer this medication for higher pain scores based on patient preference? Yes pantoprazole 40 mg delayed release oral tablet (20 sources) Proton Pump Inhibitor Start: 04-11-2024 End: 10-08-2024 take 1 tablet by mouth once daily pantoprazole (ProtoNix) 40 mg EC tablet Indications: Malignant neoplasm of upper-inner quadrant of left breast in female, estrogen receptor negative Take 1 tablet (40 mg) by mouth once daily. Do not crush, chew, or split. 30 tablet 5 04/11/2024 09/12/2024 Discontinued (Med List Cleanup) prochlorperazine 10 mg oral tablet (7 sources) Phenothiazine Start: 03-23-2024 End: 05-22-2024 take 1 tablet by mouth every six hours for nausea prochlorperazine (Compazine) 10 mg tablet Indications: Malignant neoplasm of upper-inner quadrant of left breast in female, estrogen receptor negative (Multi) Take 1 tablet (10 mg) by mouth every 6 hours if needed for nausea. 30 tablet 3 03/23/2024 05/22/2024 Active promethazine (Phenergan) 6.25 mg in sodium chloride 0.9% 50 mL IV (1 source) Start: 08-24-2024 6.25 mg, intravenous, Administer over 15 Minutes, Once as needed, Nausea/vomiting, second line, Starting on Thu08/24/24 at 0938, For 1 dose, Recovery (only) traMADol hydrochloride 50 mg oral tablet (4 sources) Opioid Agonist Start: 08-24-2024 End: 09-12-2024 take 1 tablet by mouth every eight hours for pain traMADol (Ultram) 50 mg tablet Indications: Post-op pain Take 1 tablet (50 mg) by mouth every 8 hours if needed for severe pain (7 - 10). 10 tablet 08/24/2024 09/12/2024 Discontinued (Med List Cleanup) Completed/Discontinued Medications Medication Drug Class(es) Dates Sig (Normalized) Sig (Original) Amoxicillin (1 source) Penicillin-class Antibacterial amoxicillin tablet amoxicillin tablet Wendy Liao azithromycin 250 mg oral tablet (4 sources) Macrolide Antimicrobial Start: 04-28-2022 End: 05-03-2022 take 2 tablets by mouth once daily, then take 1 tablet by mouth once daily at mealtime Azithromycin 250 mg tablet Discontinued 250 mg PO daily 6 April 28, 2022 12:00am May 02, 2022 12:00am May 03, 2022 12:05am 2 po qd for 1 day then 1 po qd for 4 days with food or after eating cephalexin 500 mg oral capsule (4 sources) Cephalosporin Antibacterial Start: 12-09-2019 End: 12-19-2019 take 1 capsule by mouth twice daily Cephalexin 500 mg capsule Discontinued 500 mg PO TWICE A DAY 10 07December 09, 2019 12:00am December 18, 2019 12:00am December 19, 2019 12:07am cholecalciferol 0.025 mg chewable tablet (2 sources) Vitamin D Start: 11-03-2019 D 1000 25 MCG (1000 UT) CHEW 1 tablet by mouth once a day cholecalciferol (vitamin d3) [id number] Karen Witt Start: 11-03-2019 VITAMIN D3 GUM MIES ADULT CHEW 1 tablet once daily CHOLECALCIFEROL CHEW [id number] Karen Witt clarithromycin 500 mg oral tablet (6 sources) Macrolide Antimicrobial Start: 12-07-2023 End: 01-14-2024 take 1 tablet by mouth twice daily Clarithromycin 500 mg tablet Discontinued 500 mg PO TWICE A DAY December 07, 2023 8:06pm January 14, 2024 3:21pm Start: 11-12-2021 End: 12-30-2021 take 1 tablet by mouth twice daily Clarithromycin 500 mg tablet Discontinued 500 mg PO TWICE A DAY November 12, 2021 1:00am December 30, 2021 6:54pm COLLAGEN HYDROLYSATE (BOVINE) (1 source) Start: 11-03-2019 COLLAGEN HYDRO LYSATE POWD As directed daily COLLAGEN HYDROLYSATE (BOVINE) [id number] Karen Witt EPINEPHrine 0.01 mg/ml / lidocaine hydrochloride 20 mg/ml injectable solution (1 source) Antiarrhythmic, alpha-Adrenergic Agonist, beta-Adrenergic Agonist, Catecholamine, Amide Local Anesthetic Start: 12-13-2024 End: 12-13-2024 As needed, Starting on Thu12/13/24 at 1442, Intraprocedure 1 ml fentaNYL 0.05 mg/ml injection (2 sources) Opioid Agonist Start: 12-13-2024 End: 12-13-2024 As needed, Starting on Thu12/13/24 at 1440, Intraprocedure Start: 04-01-2024 End: 04-01-2024 intravenous, Once PRN Proced ure, Starting on Thu04/01/24 at 1207, For 1 dose, Intraprocedure glimepiride 2 mg oral tablet (6 sources) Sulfonylurea Start: 01-14-2024 End: 03-29-2024 take 1 tablet by mouth twice daily Glimepiride 2 mg tablet Discontinued 2 mg PO TWICE A DAY January 14, 2024 12:00am March 29, 2024 3:44pm Start: 11-04-2019 End: 01-02-2020 take 1 tablet by mouth once daily Glimepiride 4 mg tablet Discontinued 4 mg PO DAILY November 04, 2019 1:00am January 02, 2020 3:32pm hydroCHLOROthiazide 12.5 mg / lisinopril 10 mg oral tablet (20 sources) Thiazide Diuretic, Angiotensin Converting Enzyme Inhibitor Start: 12-30-2021 End: 09-10-2023 Lisinopril-Hydrochlorothiazi de 10-12.5 mg tablet Discontinued 1 {tbl} PO DAILY April 13, 2023 3:07pm September 10, 2023 5:55pm Start: 12-30-2021 End: 09-10-2023 take 1 tablet by mouth once daily Lisinopril-Hydrochlorothiazide Discontin ued 1 TABLET PO DAILY April 13, 2023 3:07pm September 10, 2023 5:55pm Start: 10-27-2019 End: 12-30-2021 Lisinopril-Hydrochlorothiazi de 20-12.5 mg tablet Discontinued 1 {tbl} PO daily October 18, 2021 4:35pm December 30, 2021 6:55pm Start: 10-27-2019 End: 12-30-2021 take 1 tablet by mouth once daily Lisinopril-Hydrochlorothiazide Discontin ued 1 TABLET PO daily October 18, 2021 4:35pm December 30, 2021 6:55pm iohexol (OMNIPaque) 350 mg iodine/mL solution 70 mL (1 source) Start: 01-08-2024 End: 01-08-2024 70 mL, intravenous, Once in imaging, Starting on Thu01/08/24 at 1044, For 1 dose lidocaine (Buffered) 1 % vial 10 mL (1 source) Start: 08-22-2024 End: 08-22-2024 10 mL, subcutaneous, Once, On Thu08/22/24 at 1000, For 1 dose, Intraprocedure lidocaine with 8.4% sod bicarb (Buffered Xylocaine) 0.9 % (10 mL) injection 10 mL (1 source) Start: 02-08-2024 End: 02-08-2024 10 mL, subcutaneous, Once, On Thu02/08/24 at 1000, For 1 dose, Intraprocedure lisinopril 10 mg oral tablet (8 sources) Angiotensin Converting Enzyme Inhibitor Start: 11-16-2018 End: 10-27-2019 take 1 tablet by mouth once daily Lisinopril 10 mg tablet Discontinued 10 mg PO DAILY November 16, 2018 4:30pm October 27, 2019 7:17pm losartan potassium 50 mg oral tablet (4 sources) Angiotensin 2 Receptor Len Start: 06-06-2024 End: 07-25-2024 take 1 tablet by mouth once daily Losartan 50 mg tablet Discontinued 50 mg PO daily June 06, 2024 12:00am July 12, 2024 3:36pm magnesium chloride 64 mg magnesium tablet (20 sources) Start: 08-08-2024 End: 01-30-2025 magnesium chloride 64 mg magnesium tablet Indications: Hypomagnesemia Take 34 mg by mouth once daily. 90 tablet 3 08/08/2024 01/30/2025 Discontinued (Med List Cleanup) Start: 08-08-2024 End: 08-08-2025 magnesium chloride 64 mg mag nesium tablet Indications: Hypomagnesemia Take 34 mg by mouth once daily. 90 tablet 3 08/08/2024 08/08/2025 Active magnesium oxide 400 mg oral tablet (7 sources) Start: 05-25-2024 End: 08-08-2024 take 1 tablet by mouth once daily magnesium oxide (Mag-Ox) 400 mg (241.3 mg magnesium) tablet Take 1 tablet (400 mg) by mouth once daily. 05/25/2024 08/08/2024 Discontinued (Med List Cleanup) meclizine hydrochloride 12.5 mg oral tablet (4 sources) Antiemetic Start: 09-16-2021 End: 08-25-2022 take 1 tablet by mouth three times daily as needed for dizziness Meclizine 12.5 mg tablet Discontinued 12.5 mg PO THREE TIMES A DAY as needed for dizziness September 16, 2021 1:00am August 25, 2022 8:26pm metFORMIN hydrochloride 500 mg oral tablet (20 sources) Biguanide Start: 11-16-2018 End: 07-12-2024 take 1 tablet by mouth three times daily Metformin 500 mg tablet Discontinued 500 mg PO THREE TIMES A DAY November 04, 2022 3:54pm July 03, 2023 4:35pm metFORMIN / repaglinide (1 source) Glinide, Biguanide Start: 11-03-2019 METFORMIN REPAGLINIDE 500MG 1MG TABLET 1 tablet three times daily METFORMIN REPAGLINIDE 500MG 1MG TABLET Karen Witt 5 ml midazolam 1 mg/ml injection (2 sources) Benzodiazepine Start: 12-13-2024 End: 12-13-2024 As needed, Starting on Thu12/13/24 at 1440, Intraprocedure Start: 04-01-2024 End: 04-01-2024 intravenous, Once PRN Proced ure, Starting on Thu04/01/24 at 1207, For 1 dose, Intraprocedure Multivitamin preparation (1 source) take 1 tablet by mouth once daily MULTI-VITAMINS TABS 1 tablet by mouth once a day multivitamin [id number] Jacqui Hayden RN NICU ofloxacin 3 mg/ml otic solution (4 sources) Quinolone Antimicrobial Start: 10-02-19 End: 08-25-20 Ofloxacin 0.3 % drops Discontinued 10 NMA OTIC TWICE A DAY 06 27October 02, 2021 1:00am August 25, 2022 8:27pm oxygen (O2) therapy (2 sources) Start: 12-14-19 End: 12-14-19 Continuous PRN, Starting on Thu12/13/24 at 1431, Intraprocedure Start: 08-24-2024 inhalation, Co ntinuous - Inhalation, First dose on Thu08/24/24 at 1000, Recovery (only), Device: Nasal Cannula, Rate in liters per minute: Other, Custom Value: 1-6 LPM, Keep O2 Sat Above: 92% pioglitazone 45 mg oral tablet (4 sources) Peroxisome Proliferator Receptor alpha Agonist, Peroxisome Proliferator Receptor gamma Agonist, Thiazolidinedione Start: 11-04-2019 End: 12-09-2019 take 1 tablet by mouth once daily Pioglitazone 45 mg tablet Discontinued 45 mg PO DAILY November 04, 2019 1:00am December 09, 2019 3:20pm potassium chloride 20 meq powder for oral solution (20 sources) Start: 08-08-2024 End: 02-04-2025 take 20 mEq by mouth once daily potassium chloride (Klor-Con) 20 mEq packet Indications: Hypokalemia Take 20 mEq by mouth once daily. 90 packet 1 08/08/2024 01/30/2025 Discontinued (Med List Cleanup) Start: 06-09-2024 End: 08-08-2024 take 1 tablet by mouth once daily potassium chloride CR 20 mEq ER tablet Take 1 tablet (20 mEq) by mouth once daily. 06/09/2024 08/08/2024 Discontinued (Ineffective) predniSONE 10 mg oral tablet (4 sources) Start: 06-06-2020 End: 06-10-2020 take 2 tablets by mouth twice daily as needed, then take 1 tablet by mouth twice daily as needed, then take 0.5 tablet by mouth once daily as needed Prednisone 10 mg tablet Discontinued 20 mg PO TWICE A DAY as needed for pruritic derm 18 01June 06, 2020 12:00am June 09, 2020 12:00am June 10, 2020 12:03am 2 po bid 4D,1 po bid for 4 D, 1 po qd for 4D 1/2 po qd for2 D Start: 06-06-2020 End: 06-10-2020 Prednisone Discontinued 20 M G PO TWICE A DAY 18 01June 06, 2020 12:00am June 10, 2020 12:03am 2 po bid 4D,1 po bid for 4 D, 1 po qd for 4D 1/2 po qd for2 D Semaglutide (2 sources) Start: 2024 End: 07-12-2024 Semaglutide (Ozempic) 0.25 m g or 0.5 mg (2 mg/3 mL) pen injector Discontinued 0.25 mg SC EVERY WEEK 1.84 2024 10:58am July 12, 2024 3:37pm for 4 weeks Start: 2024 End: 09-09-2024 Semaglutide (Ozempic) 0.25 m g or 0.5 mg (2 mg/3 mL) pen injector Discontinued 0.25 mg SC EVERY WEEK 1.84 30 2024 12:00am 2024 10:58am for 4 weeks simvastatin 20 mg oral tablet (20 sources) HMG-CoA Reductase Inhibitor Start: 11-04-2019 End: 07-12-2024 take 1 tablet by mouth at bedtime Simvastatin 20 mg tablet Discontinued 20 mg PO AT BEDTIME November 04, 2022 3:55pm September 30, 2023 7:09pm 1000 ml sodium chloride 9 mg/ml injection (1 source) Start: 12-13-2024 End: 12-13-2024 1,000 mL, intravenous, at 999 mL/hr, Administer over 1 Hours, Once, On Thu12/13/24 at 1445, For 1 dose, Preprocedure [id number] sodium (Draximage) injection 26 millicurie (1 source) Start: 03-28-2024 End: 03-28-2024 26 millicurie, intravenous, Once in imaging, Starting on Thu03/28/24 at 0950, For 1 dose, Administer 2 to 4 hours prior to imaging unless otherwise indicated. [id number] (Lymphoseek) injection 1 millicurie (1 source) Start: 08-24-2024 End: 08-24-2024 1 millicurie, subcutaneous, Once in imaging, Starting on Thu08/24/24 at 0748, For 1 dose, If using for lymphoscintigraphy, administer immediately and up to 15 hours prior to imaging unless otherwise indicated. No imaging for breast injections. Problems Active Problems Problem Classification Problem Date Documented Da te Episodic/Chronic Abdominal pain (1 source) Unspecified abdominal pain; Translations: [Abdominal pain, unspecified abdominal location] Onset: 06-08-2024 Episodic Cancer of breast (20 sources) Malignant neoplasm of upper-inner quadrant of female breast; Translations: [Malignant neoplasm of upper-inner quadrant of left female breast] Onset: 02-23-2024 02-23-2024 Chronic Diabetes mellitus with complications (4 sources) Type II diabetes mellitus uncontrolled; Translations: [Uncontrolled type 2 diabetes mellitus] 10-15-2020 Chronic Diabetes mellitus without complication (20 sources) Diabetes mellitus; Translations: [Type 2 diabetes mellitus without complications] Onset: 07-26-2021 07-26-2021 Chronic Disorders of lipid metabolism (20 sources) Hyperlipidemia; Translations: [Hyperlipidemia, unspecified] Onset: 05-05-2024 10-15-2020 Chronic Essential hypertension (20 sources) Hypertensive disorder; Translations: [Essential (primary) hypertension] Onset: 05-05-2024 10-15-2020 Chronic Heart valve disorders (20 sources) Mitral valve prolapse; Translations: [Nonrheumatic mitral (valve) prolapse] Onset: 05-05-2024 05-05-2024 Chronic Leukemias (20 sources) Chronic lymphoid leukemia, disease; Translations: [Chronic lymphocytic leukemia of B-cell type not having achieved remission] Onset: 12-25-2023 12-25-2023 Chronic Maintenance chemotherapy; radiotherapy (20 sources) Patient encounter status; Translations: [Encounter for antineoplastic chemotherapy] Onset: 10-31-2024 03-22-2024 Chronic Other circulatory disease (1 source) Low blood pressure; Translations: [Hypotension, unspecified] 09-30-2024 Episodic Other diseases of kidney and ureters (1 source) Renal impairment; Translations: [Disorder of kidney and ureter, unspecified] 05-27-2024 Episodic Other gastrointestinal disorders (1 source) Constipation, unspecified; Translations: [Constipation, unspecified constipation type] Onset: 06-08-2024 Episodic Other nervous system disorders (1 source) Postoperative pain ; Translations: [Other acute postprocedural pain] 08-24-2024 Episodic Other non-traumatic joint disorders (2 sources) Other specific arthropathies, not elsewhere classified, left shoulder; Translations: [Other specified arthropathy, shoulder region] Onset: 11-07-2019 11-07-2019 Chronic Other non-traumatic joint disorders (3 sources) Pain in left shoulder; Translations: [Left shoulder pain] 04-13-2019 Episodic Other nutritional; endocrine; and metabolic disorders (3 sources) Hypomagnesemia; Translations: [Hypomagnesemia] Onset: 06-08-2024 Chronic Other nutritional; endocrine; and metabolic disorders (20 sources) Hypomagnesemia; Translations: [Hypomagnesemia] Onset: 09-12-2024 08-08-2024 Chronic Prolapse of female genital organs (20 sources) Cystocele; Translations: [Cystocele, unspecified] Onset: 09-23-2024 04-28-2022 Chronic Septicemia (except in labor) (1 source) Sepsis, unspecified organism; Translations: [Sepsis, due to unspecified organism, unspecified whether acute organ dysfunction present (HCC)] Onset: 05-24-2024 Episodic Unclassified (2 sources) OTV; Translations: [OTV] Onset: 10-27-2024 Past or Other Problems Problem Classification Problem Date Documented Date Episodic/Chronic Administrative/social admission (2 sources) Encounter for nonprocreative genetic counseling; Translations: [Encounter for nonprocreative genetic counseling] Onset: 08-26-2024 Episodic Bacterial infection; unspecified site (20 sources) Staphylococcal infectious disease; Translations: [Unspecified staphylococcus as the cause of diseases classified elsewhere] Onset: 09-23-2024 Resolved: 09-23-2024 06-06-2020 Episodic Cancer of breast (6 sources) History of malignant neoplasm of breast; Translations: [Personal history of malignant neoplasm of breast] Onset: 09-26-2024 09-26-2024 Episodic Conditions associated with dizziness or vertigo (20 sources) Dizziness; Translations: [Dizziness and giddiness] Onset: 09-23-2024 Resolved: 09-23-2024 09-16-2021 Episodic Diseases of white blood cells (20 sources) Elevated white blood cell count, unspecified; Translations: [Leukocytosis] Onset: 06-08-2024 Resolved: 09-23-2024 09-23-2024 Chronic Diverticulosis and diverticulitis (20 sources) Diverticular disease; Translations: [Diverticulosis of intestine, part unspecified, without perforation or abscess without bleeding] Onset: 09-23-2024 Resolved: 09-23-2024 09-23-2024 Chronic Fluid and electrolyte disorders (20 sources) Hypokalemia; Translations: [Other disorders of electrolyte and fluid balance, not elsewhere classified] Onset: 05-24-2024 08-08-2024 Episodic Fracture of lower limb (1 source) Closed fracture of fifth metatarsal bone; Translations: [Displaced fracture of fifth metatarsal bone, right foot, initial encounter for closed fracture] Onset: 07-26-2021 07-26-2021 Episodic Lymphadenitis (20 sources) Axillary lymphadenopathy; Translations: [Localized enlarged lymph nodes] Onset: 02-08-2024 02-08-2024 Episodic Malaise and fatigue (20 sources) Asthenia; Translations: [Weakness] Onset: 07-26-2024 Resolved: 09-23-2024 09-23-2024 Episodic Non-Hodgkin`s lymphoma (20 sources) Malignant lymphoma; Translations: [Non-Hodgkin lymphoma, unspecified, unspecified site] Onset: 09-23-2024 Resolved: 09-23-2024 01-14-2024 Chronic Nonmalignant breast conditions (20 sources) Breast lump; Translations: [Unspecified lump in the left breast, unspecified quadrant] Onset: 02-08-2024 04-25-2019 Episodic Osteoarthritis (20 sources) Unilateral primary osteoarthritis, left knee; Translations: [Osteoarthrosis, localized, primary, lower leg] Onset: 06-24-2021 Resolved: 09-23-2024 06-24-2021 Chronic Other aftercare (20 sources) Long-term current use of drug therapy; Translations: [Encounter for therapeutic drug level monitoring] Onset: 05-05-2024 05-05-2024 Episodic Other aftercare (4 sources) Drug therapy finding; Translations: [Encounter for therapeutic drug level monitoring] Onset: 05-05-2024 05-05-2024 Episodic Other aftercare (8 sources) Encounter for therapeutic drug level monitoring; Translations: [Encounter for therapeutic drug level monitoring] Onset: 05-05-2024 Episodic Other aftercare (8 sources) Other superintendent [employer] (current) drug therapy; Translations: [Other skilled nursing (current) drug therapy] Onset: 05-05-2024 Episodic Other aftercare (2 sources) Encounter for follow-up examination after completed treatment for conditions other than malignant neoplasm; Translations: [Encounter for follow-up examination after completed treatment for conditions other than malignant neoplasm] Onset: 10-03-2024 Episodic Other connective tissue disease (20 sources) History of total knee arthroplasty; Translations: [Presence of left artificial knee joint] Onset: 12-23-2021 Resolved: 09-23-2024 12-24-2021 Chronic Other liver diseases (20 sources) Steatosis of liver; Translations: [Fatty (change of) liver, not elsewhere classified] Onset: 09-23-2024 Resolved: 09-23-2024 09-23-2024 Chronic Other lower respiratory disease (8 sources) Dyspnea; Translations: [Shortness of breath] Onset: 08-08-2024 08-08-2024 Episodic Other lower respiratory disease (3 sources) Shortness of breath; Translations: [Shortness of breath] Onset: 08-08-2024 Episodic Other non-traumatic joint disorders (20 sources) Pain in left knee; Translations: [Left knee pain] Onset: 09-23-2024 Resolved: 09-23-2024 04-13-2019 Episodic Other non-traumatic joint disorders (20 sources) Shoulder pain; Translations: [Pain in left shoulder] Onset: 09-23-2024 Resolved: 09-23-2024 09-23-2024 Episodic Other screening for suspected conditions (not mental disorders or infectious disease) (20 sources) Patient encounter status; Translations: [Encounter for screening mammogram for malignant neoplasm of breast] Onset: 02-08-2024 Resolved: 09-23-2024 04-13-2019 Episodic Other skin disorders (20 sources) Folliculitis; Translations: [Follicular disorder, unspecified] Onset: 09-23-2024 Resolved: 09-23-2024 06-06-2020 Episodic Other skin disorders (1 source) Follicular disorder, unspecified; Translations: [Follicular disorder, unspecified] Onset: 12-08-2024 Episodic Other upper respiratory disease (1 source) Other specified disorders of nose and nasal sinuses; Translations: [Other specified disorders of nose and nasal sinuses] Onset: 01-11-2025 Episodic Other upper respiratory infections (20 sources) Acute maxillary sinusitis; Translations: [Acute maxillary sinusitis, unspecified] Onset: 09-23-2024 Resolved: 09-23-2024 09-10-2023 Episodic Otitis media and related conditions (20 sources) Acute right otitis media; Translations: [Otitis media, unspecified, right ear] Onset: 09-23-2024 Resolved: 09-23-2024 09-16-2021 Episodic Residual codes; unclassified (20 sources) Edema of right lower leg; Translations: [Localized edema] Onset: 08-08-2024 Resolved: 01-30-2025 08-08-2024 Episodic Residual codes; unclassified (8 sources) Estrogen receptor negative status [ER-]; Translations: [Estrogen receptor negative status (ER-)] Onset: 07-29-2024 Episodic Residual codes; unclassified (4 sources) Localized edema; Translations: [Localized edema] Onset: 08-08-2024 Episodic Residual codes; unclassified (2 sources) Family history of malignant neoplasm of digestive organs; Translations: [Family history of malignant neoplasm of digestive organs] Onset: 08-26-2024 Episodic Unclassified (2 sources) Problem Unclassified (20 sources) Onset: 12-25-2023 Resolved: 05-15-2025 12-25-2023 Unclassified (7 sources) Long-term current use of drug therapy 08-05-2024 Unclassified (1 source) Patient encounter status 10-03-2024 Urinary tract infections (20 sources) Urinary tract infectious disease; Translations: [Urinary tract infection, site not specified] Onset: 09-23-2024 Resolved: 09-23-2024 12-09-2019 Episodic Results Test Name Value Interpretation Reference Range Facility CBC W/Diff, Automatedon 10-0 Absolute Lymph 1.92 X10 3/uL Normal 0.83-4.51 [facility] Comment on above: Performed By: #### L 100.0100, L501.9985, L500.4100, L500.4050 #### [facility] [address] [place], [address] Absolute Neut 4.5 X10 3/uL Normal 2.0-7.7 [facility] Comment on above: Performed By: #### L 100.0100, L501.9985, L500.4100, [id number] #### [facility] [address] [place], [address] Basophils/100 WBC (Bld) 0.8 % Normal 0-1 [facility] Comment on above: Performed By: #### L 100.0100, L501.9985, L500.4100, [id number] #### [facility] [address] [place], [address] Eosinophils/100 WBC (Bld) 4.7 % Normal 0-5 [facility] Comment on above: Performed By: #### L 100.0100, L501.9985, L500.4100, [id number] #### [facility] [address] [place], [address] Erythrocyte distribution width (RBC) [Ratio] 12.8 % Normal 11.6-14.6 [facility] Comment on above: Performed By: #### L 100.0100, L501.9985, L500.4100, [id number] #### [facility] [address] [place], [address] Hematocrit (Bld) [Volume fraction] 37.7 % Normal 37-47 [facility] Comment on above: Performed By: #### L 100.0100, L501.9985, L500.4100, [id number] #### [facility] [address] [place], [address] Hemoglobin (Bld) [Mass/Vol] 12.5 g/dL Normal 12.0-15.0 [facility] Comment on above: Performed By: #### L 100.0100, L501.9985, L500.4100, [id number] #### [facility] [address] [place], [address] IG% 0.300 Normal 0.0-0.9 [facility] Comment on above: Result Comment: IG% - Immature Granulocytes (promyelocytes, myelocytes and metamyelocytes) > 1% indicates that a LEFT SHIFT is Present. Performed By: #### L 100.0100, L501.9985, L500.4100, L500.4050 #### [facility] [address] [place], [address] Lymphocytes/100 WBC (Bld) 25.8 % Normal 19-41 [facility] Comment on above: Performed By: #### L 100.0100, L501.9985, L500.4100, [id number] #### [facility] [address] [place], [address] MCH (RBC) [Entitic mass] 32.4 pg High 27.0-32.0 [facility] Comment on above: Performed By: #### L 100.0100, L501.9985, L500.4100, L500.4050 #### [facility] [address] [place], [address] MCHC (RBC) [Mass/Vol] 33.2 g/dL Normal 32-36 [facility] Comment on above: Performed By: #### L 100.0100, L501.9985, L500.4100, [id number] #### [facility] [address] [place], [address] MCV (RBC) [Entitic vol] 97.7 fL Normal 81-99 [facility] Comment on above: Performed By: #### L 100.0100, L501.9985, L500.4100, [id number] #### [facility] [address] [place], [address] Monocytes/100 WBC (Bld) 7.4 % Normal 0-10 [facility] Comment on above: Performed By: #### L 100.0100, L501.9985, L500.4100, [id number] #### [facility] [address] [place], [address] Neutrophils/100 WBC (Bld) 61.0 % Normal 47-70 [facility] Comment on above: Performed By: #### L 100.0100, L501.9985, L500.4100, [id number] #### [facility] [address] [place], [address] Nucleated RBC (Bld) [#/Vol] 0 10*3/uL Normal 0-5 [facility] Comment on above: Performed By: #### L 100.0100, L501.9985, L500.4100, [id number] #### [facility] [address] [place], [address] Platelet mean volume (Bld) [Entitic vol] 12.9 fL High 6.2-12.0 [facility] Comment on above: Performed By: #### L 100.0100, L501.9985, L500.4100, L500.4050 #### [facility] [address] [place], [address] Platelets (Bld) [#/Vol] 174 10*3/uL Normal 150-450 [facility] Comment on above: Performed By: #### L 100.0100, L501.9985, L500.4100, [id number] #### [facility] [address] [place], [address] RBC (Bld) [#/Vol] 3.86 10*6/uL Low 4.2-5.4 [facility] Comment on above: Performed By: #### L 100.0100, L501.9985, L500.4100, [id number] #### [facility] [address] [place], [address] RDW SD 45.6 fl High 35.1-43.9 [facility] Comment on above: Performed By: #### L 100.0100, L501.9985, L500.4100, [id number] #### [facility] [address] [place], [address] WBC (Bld) [#/Vol] 7.4 10*3/uL Normal 4.4-11.0 [facility] Comment on above: Performed By: #### L 100.0100, L501.9985, L500.4100, [id number] #### [facility] [address] [place], [address] Comprehensive Metabolic Prof justina 06-28-2025 Albumin [Mass/Vol] 4.3 g/dL Normal 3.4-4.8 [facility] Comment on above: Performed By: #### L 100.0100, L501.9985, L500.4100, [id number] #### [facility] [address] [place], [address] Albumin/Globulin [Mass ratio] 1.6 {ratio} Normal 0.9-2.4 [facility] Comment on above: Performed By: #### L 100.0100, L501.9985, L500.4100, [id number] #### [facility] [address] [place], [address] ALK PHOS 93 U/L Normal 35-104 [facility] Comment on above: Performed By: #### L 100.0100, L501.9985, L500.4100, [id number] #### [facility] [address] [place], [address] ALT [Catalytic activity/Vol] 20 U/L Normal <=34 [facility] Comment on above: Performed By: #### L 100.0100, L501.9985, L500.4100, [id number] #### [facility] [address] [place], [address] AST [Catalytic activity/Vol] 28 U/L Normal <=31 [facility] Comment on above: Performed By: #### L 100.0100, L501.9985, L500.4100, L500.4050 #### [facility] [address] [place], [address] Bilirubin [Mass/Vol] 0.44 mg/dL Normal 0.00-1.30 [facility] Comment on above: Performed By: #### L 100.0100, L501.9985, L500.4100, L500.4050 #### [facility] [address] [place], [address] BUN/CRE 31.7 RATIO High 10-20 [facility] Comment on above: Performed By: #### L 100.0100, L501.9985, L500.4100, L500.4050 #### [facility] [address] [place], [address] Calcium [Mass/Vol] 9.7 mg/dL Normal 7.6-11.0 [facility] Comment on above: Performed By: #### L 100.0100, L501.9985, L500.4100, L500.4050 #### [facility] [address] [place], [address] Chloride [Moles/Vol] 104 mmol/L Normal 98-108 [facility] Comment on above: Performed By: #### L 100.0100, L501.9985, L500.4100, L500.4050 #### [facility] [address] [place], [address] CO2 [Moles/Vol] 24.1 mmol/L Normal 21.0-32.0 [facility] Comment on above: Performed By: #### L 100.0100, L501.9985, L500.4100, L500.4050 #### [facility] [address] [place], [address] Creatinine [Mass/Vol] 1.06 mg/dL Normal 0.70-1.20 [facility] Comment on above: Performed By: #### L 100.0100, L501.9985, L500.4100, L500.4050 #### [facility] [address] [place], [address] GAP 13 Normal 5-15 [facility] Comment on above: Performed By: #### L 100.0100, L501.9985, L500.4100, [id number] #### [facility] [address] [place], [address] GFR/1.73 sq M.predicted among non-blacks MDRD (S/P/Bld) [Vol rate/Area] 55 mL/min/{1.73_m2} Low >60 [facility] Comment on above: Result Comment: mL/m in/1.73m2 CKD-EPI Creatinine Equation (2020) Performed By: #### L 100.0100, L501.9985, L500.4100, [id number] #### [facility] [address] [place], [address] Globulin (S) [Mass/Vol] 2.7 g/dL Normal 2.2-4.2 [facility] Comment on above: Performed By: #### L 100.0100, L501.9985, L500.4100, L500.4050 #### [facility] [address] [place], [address] Glucose [Mass/Vol] 160 mg/dL High 70-99 [facility] Comment on above: Performed By: #### L 100.0100, L501.9985, L500.4100, L500.4050 #### [facility] [address] [place], [address] Potassium [Moles/Vol] 4.5 mmol/L Normal 3.3-5.1 [facility] Comment on above: Performed By: #### L 100.0100, L501.9985, L500.4100, L500.4050 #### [facility] [address] [place], [address] Sodium [Moles/Vol] 141 mmol/L Normal 133-145 [facility] Comment on above: Performed By: #### L 100.0100, L501.9985, L500.4100, L500.4050 #### [facility] [address] [place], [address] T PROT 6.9 g/dL Normal 5.9-8.4 [facility] Comment on above: Performed By: #### L 100.0100, L501.9985, L500.4100, L500.4050 #### [facility] [address] [place], [address] Urea nitrogen [Mass/Vol] 34 mg/dL High 4-19 [facility] Comment on above: Performed By: #### L 100.0100, L501.9985, L500.4100, L500.4050 #### [facility] [address] [place], [address] Hemoglobin A1con 06-28-2025 HbA1c (Bld) [Mass fraction] 6.3 % High <=5.6 [facility] Comment on above: Result Comment: Norm al < 5.7 % Prediabetic 5.7 - 6.4 % Diabetic >or= 6.5 % Please note range changes. Performed By: #### L 100.0100, L501.9985, L500.4100, L500.4050 #### [facility] [address] [place], [address] Lipid Profileon 06-28-2025 CHOL:HDL 2.87 Normal [facility] Comment on above: Performed By: #### L 100.0100, L501.9985, L500.4100, L500.4050 #### [facility] [address] [place], [address] Cholesterol [Mass/Vol] 151 mg/dL Normal <=200 [facility] Comment on above: Result Comment: Chol esterol level, Desirable <200 mg/dL Borderline high cholesterol 200-239 mg/dL High cholesterol >=240 mg/dL Recommendations of the NCEP Adult Treatment Panel for the following risk-cutoff thresholds for the [place] population. Performed By: #### L 100.0100, L501.9985, L500.4100, L500.4050 #### [facility] [address] [place], [address] Cholesterol in HDL [Mass/Vol] 53 mg/dL Normal [facility] Comment on above: Result Comment: [place] Cholesterol Education Program (NCEP) guidelines: <40 mg/dL: Low HDL-cholesterol (major risk factor for CHD) >= 60 mg/dL: High HDL-cholesterol (negative risk factor for CHD) HDL-cholesterol is affected by a number of factors, e.g. smoking, exercise, hormones, sex and age. Performed By: #### L 100.0100, L501.9985, L500.4100, L500.4050 #### [facility] [address] [place], [address] Cholesterol in LDL [Mass/Vol] 22 mg/dL Normal [facility] Comment on above: Result Comment: Bord qwuefi=162-007 mg/dL Higher Sgvq=546 mg/dL or greater Friedwald Equation for LDL-C Performed By: #### L 100.0100, L501.9985, L500.4100, L500.4050 #### [facility] [address] [place], [address] Cholesterol in VLDL [Mass/Vol] 76 mg/dL High 5-40 [facility] Comment on above: Performed By: #### L 100.0100, L501.9985, L500.4100, L500.4050 #### [facility] [address] [place], [address] Triglyceride [Mass/Vol] 381 mg/dL High [facility] Comment on above: Result Comment: The drugs N-Acetylcysteine and Metamizole may falsely depress this assay. Normal range: <150 mg/dL Borderline High: 150-199 mg/dL High: 200-499 mg/dL Very High: >500 mg/dL Performed By: #### L 100.0100, L501.9985, L500.4100, L500.4050 #### [facility] [address] [place], [address] ECG 12 lead (Clinic Performe d)on 05-15-2025 EKG today - NSR with PACs, low voltage QRS, borderline criteria for septal OK. [facility] Work Phone: Natriuretic peptide B [Mass/ Vol]on 05-15-2025 Natriuretic peptide B (Bld) [Mass/Vol] 13 pg/mL Normal 0-99 [facility] Comment on above: Order Comment: <100 pg/mL - Heart failure unlikely 100-299 pg/mL - Intermediate probability of acute heart failure exacerbation. Correlate with clinical context and patient history. >=300 pg/mL - Heart Failure likely. Correlate with clinical context and patient history. BNP testing is performed using different testing methodology at [facility] than at other [facility]. Direct result comparisons should only be made within the same method. Performed By: #### 3 0934-4 #### ERICK ACEVEDO ([id number]) [facility] ([facility]) [address] [place] [address] Troponin I.cardiac panelon 0 05-15-2025 Tropinin I.cardiac panel High sensitivity method 3 ng/L Normal 0-13 [facility] Comment on above: Order Comment: Less than 99th percentile of normal range cutoff- Female and children under 18 years old <14 ng/L; Male <21 ng/L: Negative Repeat testing should be performed if clinically indicated. Female and children under 18 years old 14-50 ng/L; Male 21-50 ng/L: Consistent with possible cardiac damage and possible increased clinical risk. Serial measurements may help to assess extent of myocardial damage. >50 ng/L: Consistent with cardiac damage, increased clinical risk and myocardial infarction. Serial measurements may help assess extent of myocardial damage. NOTE: Children less than 1 year old may have higher baseline troponin levels and results should be interpreted in conjunction with the overall clinical context. NOTE: Troponin I testing is performed using a different testing methodology at [facility] than at other system hospitals. Direct result comparisons should only be made within the same method. Performed By: #### 8 9577-1 #### ERICK ACEVEDO ([id number]) [facility] ([facility]) [address] [place] [address] ONCO-ECHO LIMITED (STRAIN AN D 3D)on 05-10-2025 ONCO-ECHO LIMITED (STRAIN AND 3D) [facility] [address], [address], [place] [address] TRANSTHORACIC ECHOCARDIOGRAM REPORT Patient Name: MARILIA GUZMAN Reading Physician: [id number] Scott Willams MD Study Date: 05/10/2025 Ordering Provider: [id number] BRENDA CORTES MRN/PID: [id number] Fellow: Nurse: Date of /Age: 9 1950 / 74 years Research Lab Assistant: Luna Henry [facility] Gender assigned at F Additional Staff: : Height: 152.40 cm Admit Date: Weight: 59.42 kg Admission Status: Outpatient BSA / BMI: 1.56 m2 / 25.58 kg/m2 Blood Pressure: 107/54 mmHg Department Location: [facility] Study Type: ONCO-ECHO LIMITED (STRAIN AND 3D) Diagnosis/ICD: 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 PHYSICIAN INTERPRETATION: Left Ventricle: Left ventricular ejection fraction is mildly decreased by visual estimate at 50%. There are no regional left ventricular wall motion abnormalities. The left ventricular cavity size is normal. There is normal septal and mildly increased posterior left ventricular wall thickness. There is left ventricular concentric remodeling. Left Ventricular Global Longitudinal Strain - 17.2 %. Spectral Doppler shows a Grade I (impaired relaxation pattern) of left ventricular diastolic filling with normal left atrial filling pressure. Left Atrium: The left atrium is mildly dilated. Right Ventricle: The right ventricle is normal in size. There is normal right ventricular global systolic function. Right Atrium: The right atrium is normal in size. Aortic Valve: The aortic valve is trileaflet. There is trace to mild aortic valve regurgitation. Mitral Valve: The mitral valve is abnormal. There is mitral valve prolapse. There is mild mitral valve prolapse of the posterior leaflet. There is mild to moderate mitral valve regurgitation. The E Vmax is 0.63 m/s. Moderate posterior leaflet prolapse with mild mitral regurgitation. Tricuspid Valve: The tricuspid valve is structurally normal. There is trace tricuspid regurgitation. Pulmonic Valve: The pulmonic valve is structurally normal. There is physiologic pulmonic valve regurgitation. Pericardium: There is no pericardial effusion noted. Aorta: The aortic root is normal. ` CONCLUSIONS: 1. Left ventricular ejection fraction is mildly decreased by visual estimate at 50%. 2. Left Ventricular Global Longitudinal Strain - 17.2 %. 3. Spectral Doppler shows a Grade I (impaired relaxation pattern) of left ventricular diastolic filling with normal left atrial filling pressure. 4. The left atrium is mildly dilated. 5. Moderate posterior leaflet prolapse with mild mitral regurgitation. 6. Mild to moderate mitral valve regurgitation. ` QUANTITATIVE DATA SUMMARY: 2D MEASUREMENTS: Normal Ranges: IVSd: 0.80 cm (0.6-1.1cm) LVPWd: 1.00 cm (0.6-1.1cm) LVIDd: 4.50 cm (3.9-5.9cm) LVIDs: 3.40 cm LV Mass Index: 85 g/m2 LVEDV Index: 40 ml/m2 LV % FS 24.4 % LEFT ATRIUM: Normal Ranges: LA Vol A4C: 48.8 ml (22+/-6mL/m2) LA Vol A2C: 53.2 ml LA Vol BP: 51.0 ml LA Vol Index A4C: 31.3ml/m2 LA Vol Index A2C: 34.1 ml/m2 LA Vol Index BP: 32.7 ml/m2 LA Area A4C: 17.9 cm2 LA Area A2C: 18.7 cm2 LA Major [place] A4C: 5.6 cm LA Major [place] A2C: 5.6 cm RIGHT ATRIUM: Normal Ranges: RA Vol A4C: 21.2 ml RA Area A4C: 10.5 cm2 LV SYSTOLIC FUNCTION: Normal Ranges: EF-A4C View: 47 % (>=55%) EF-A2C View: 51 % EF-Biplane: 50 % EF-Visual: 50 % LV EF Reported: 50 % Global Longitudinal Strain (GLS): -17.20 LV DIASTOLIC FUNCTION: Normal Ranges: MV Peak E: 0.63 m/s (0.7-1.2 m/s) MV Peak A: 0.72 m/s (0.42-0.7 m/s) E/A Ratio: 0.88 (1.0-2.2) MV A Dur: 134.00 msec MITRAL VALVE: Normal Ranges: MV DT: 235 msec (150-240msec) RIGHT VENTRICLE: RV Basal 2.30 cm RV Mid 2.40 cm RV Major 7.0 cm TAPSE: 20.5 mm TRICUSPID VALVE/RVSP: Normal Ranges: Peak TR Velocity: 1.75 m/s Est. RA Pressure: 3 RV Syst Pressure: 15 (< 30mmHg) IVC Diam: 1.90 cm [id number] Scott Willams MD Electronically signed on 05/10/2025 at 7:01:10 PM Final [facility] Onco-Echo Limited (Strain An d 3D)Ordered By: Scott Willams on 05-10-2025 LA vol index A/L 32.7 ml/m2 [facility] Work Phone: [phone] LV A4C EF 46.9 [facility] Work Phone: [phone] LV EF 50 % [facility] Work Phone: [phone] LV GLS 17.2 % [facility] Work Phone: [phone] LVIDd 4.50 cm [facility] Work Phone: [phone] MV E/A ratio 0.88 [facility] Work Phone: [phone] RVSP 15 mmHg [facility] Work Phone: [phone] Tricuspid annular plane systolic excursion 2.1 cm [facility] Work Phone: [phone] [facility] Work Phone: [phone] Onco-Echo Limited (Strain An d 3D)on 05-10-2025 [facility] [address] [place] [address] [address], [place] [address] TRANSTHORACIC ECHOCARDIOGRAM REPORT Patient Name: MARILIA GUZMAN Reading Physician: [id number] Scott Willams MD Study Date: 05/10/2025 Ordering Provider: [id number] BRENDA Conchita JOSE MRN/PID: [id number] Fellow: Nurse: Date of /Age: 9 1950 / 74 years Research Lab Assistant: Luna Henry RDCS Gender assigned at F Additional Staff: : Height: 152.40 cm Admit Date: Weight: 59.42 kg Admission Status: Outpatient BSA / BMI: 1.56 m2 / 25.58 kg/m2 Blood Pressure: 107/54 mmHg Department Location: [facility] Study Type: ONCO-ECHO LIMITED (STRAIN AND 3D) Diagnosis/ICD: 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 PHYSICIAN INTERPRETATION: Left Ventricle: Left ventricular ejection fraction is mildly decreased by visual estimate at 50%. There are no regional left ventricular wall motion abnormalities. The left ventricular cavity size is normal. There is normal septal and mildly increased posterior left ventricular wall thickness. There is left ventricular concentric remodeling. Left Ventricular Global Longitudinal Strain - 17.2 %. Spectral Doppler shows a Grade I (impaired relaxation pattern) of left ventricular diastolic filling with normal left atrial filling pressure. Left Atrium: The left atrium is mildly dilated. Right Ventricle: The right ventricle is normal in size. There is normal right ventricular global systolic function. Right Atrium: The right atrium is normal in size. Aortic Valve: The aortic valve is trileaflet. There is trace to mild aortic valve regurgitation. Mitral Valve: The mitral valve is abnormal. There is mitral valve prolapse. There is mild mitral valve prolapse of the posterior leaflet. There is mild to moderate mitral valve regurgitation. The E Vmax is 0.63 m/s. Moderate posterior leaflet prolapse with mild mitral regurgitation. Tricuspid Valve: The tricuspid valve is structurally normal. There is trace tricuspid regurgitation. Pulmonic Valve: The pulmonic valve is structurally normal. There is physiologic pulmonic valve regurgitation. Pericardium: There is no pericardial effusion noted. Aorta: The aortic root is normal. ` CONCLUSIONS: 1. Left ventricular ejection fraction is mildly decreased by visual estimate at 50%. 2. Left Ventricular Global Longitudinal Strain - 17.2 %. 3. Spectral Doppler shows a Grade I (impaired relaxation pattern) of left ventricular diastolic filling with normal left atrial filling pressure. 4. The left atrium is mildly dilated. 5. Moderate posterior leaflet prolapse with mild mitral regurgitation. 6. Mild to moderate mitral valve regurgitation. ` QUANTITATIVE DATA SUMMARY: 2D MEASUREMENTS: Normal Ranges: IVSd: 0.80 cm (0.6-1.1cm) LVPWd: 1.00 cm (0.6-1.1cm) LVIDd: 4.50 cm (3.9-5.9cm) LVIDs: 3.40 cm LV Mass Index: 85 g/m2 LVEDV Index: 40 ml/m2 LV % FS 24.4 % LEFT ATRIUM: Normal Ranges: LA Vol A4C: 48.8 ml (22+/-6mL/m2) LA Vol A2C: 53.2 ml LA Vol BP: 51.0 ml LA Vol Index A4C: 31.3ml/m2 LA Vol Index A2C: 34.1 ml/m2 LA Vol Index BP: 32.7 ml/m2 LA Area A4C: 17.9 cm2 LA Area A2C: 18.7 cm2 LA Major [place] A4C: 5.6 cm LA Major [place] A2C: 5.6 cm RIGHT ATRIUM: Normal Ranges: RA Vol A4C: 21.2 ml RA Area A4C: 10.5 cm2 LV SYSTOLIC FUNCTION: Normal Ranges: EF-A4C View: 47 % (>=55%) EF-A2C View: 51 % EF-Biplane: 50 % EF-Visual: 50 % LV EF Reported: 50 % Global Longitudinal Strain (GLS): -17.20 LV DIASTOLIC FUNCTION: Normal Ranges: MV Peak E: 0.63 m/s (0.7-1.2 m/s) MV Peak A: 0.72 m/s (0.42-0.7 m/s) E/A Ratio: 0.88 (1.0-2.2) MV A Dur: 134.00 msec MITRAL VALVE: Normal Ranges: MV DT: 235 msec (150-240msec) RIGHT FERNANDO (more content not included)... Scott Marmolejo MD - 05/10/2025 [facility] [address], [address], [place] [address] TRANSTHORACIC ECHOCARDIOGRAM REPORT Patient Name: MARILIA GUZMAN Reading Physician: [id number] Scott Willams MD Study Date: 05/10/2025 Ordering Provider: [id number] BRENDA CORTES MRN/PID: [id number] Fellow: Nurse: Date of /Age: 9 1950 / 74 years Research Lab Assistant: Luna Henry RDCS Gender assigned at F Additional Staff: : Height: 152.40 cm Admit Date: Weight: 59.42 kg Admission Status: Outpatient BSA / BMI: 1.56 m2 / 25.58 kg/m2 Blood Pressure: 107/54 mmHg Department Location: [facility] Study Type: ONCO-ECHO LIMITED (STRAIN AND 3D) Diagnosis/ICD: 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 PHYSICIAN INTERPRETATION: Left Ventricle: Left ventricular ejection fraction is mildly decreased by visual estimate at 50%. There are no regional left ventricular wall motion abnormalities. The left ventricular cavity size is normal. There is normal septal and mildly increased posterior left ventricular wall thickness. There is left ventricular concentric remodeling. Left Ventricular Global Longitudinal Strain - 17.2 %. Spectral Doppler shows a Grade I (impaired relaxation pattern) of left ventricular diastolic filling with normal left atrial filling pressure. Left Atrium: The left atrium is mildly dilated. Right Ventricle: The right ventricle is normal in size. There is normal right ventricular global systolic function. Right Atrium: The right atrium is normal in size. Aortic Valve: The aortic valve is trileaflet. There is trace to mild aortic valve regurgitation. Mitral Valve: The mitral valve is abnormal. There is mitral valve prolapse. There is mild mitral valve prolapse of the posterior leaflet. There is mild to moderate mitral valve regurgitation. The E Vmax is 0.63 m/s. Moderate posterior leaflet prolapse with mild mitral regurgitation. Tricuspid Valve: The tricuspid valve is structurally normal. There is trace tricuspid regurgitation. Pulmonic Valve: The pulmonic valve is structurally normal. There is physiologic pulmonic valve regurgitation. Pericardium: There is no pericardial effusion noted. Aorta: The aortic root is normal. ` CONCLUSIONS: 1. Left ventricular ejection fraction is mildly decreased by visual estimate at 50%. 2. Left Ventricular Global Longitudinal Strain - 17.2 %. 3. Spectral Doppler shows a Grade I (impaired relaxation pattern) of left ventricular diastolic filling with normal left atrial filling pressure. 4. The left atrium is mildly dilated. 5. Moderate posterior leaflet prolapse with mild mitral regurgitation. 6. Mild to moderate mitral valve regurgitation. ` QUANTITATIVE DATA SUMMARY: 2D MEASUREMENTS: Normal Ranges: IVSd: 0.80 cm (0.6-1.1cm) LVPWd: 1.00 cm (0.6-1.1cm) LVIDd: 4.50 cm (3.9-5.9cm) LVIDs: 3.40 cm LV Mass Index: 85 g/m2 LVEDV Index: 40 ml/m2 LV % FS 24.4 % LEFT ATRIUM: Normal Ranges: LA Vol A4C: 48.8 ml (22+/-6mL/m2) LA Vol A2C: 53.2 ml LA Vol BP: 51.0 ml LA Vol Index A4C: 31.3ml/m2 LA Vol Index A2C: 34.1 ml/m2 LA Vol Index BP: 32.7 ml/m2 LA Area A4C: 17.9 cm2 LA Area A2C: 18.7 cm2 LA Major [place] A4C: 5.6 cm LA Major [place] A2C: 5.6 cm RIGHT ATRIUM: Normal Ranges: RA Vol A4C: 21.2 ml RA Area A4C: 10.5 cm2 LV SYSTOLIC FUNCTION: Normal Ranges: EF-A4C View: 47 % (>=55%) EF-A2C View: 51 % EF-Biplane: 50 % EF-Visual: 50 % LV EF Reported: 50 % Global Longitudinal Strain (GLS): -17.20 LV DIASTOLIC FUNCTION: Normal Ranges: MV Peak E: 0.63 m/s (0.7-1.2 m/s) MV Peak A: 0.72 m/s (0.42-0.7 m/s) E/A Ratio: 0.88 (1.0-2.2) MV A Dur: 134.00 msec MITRAL VALVE: Normal Ranges: MV DT: 235 msec (150-240msec) RIGHT VENTRICLE: RV Basal 2.30 cm RV Mid 2.40 cm RV Major 7.0 cm TAPSE: 20.5 mm TRICUSPID VALVE/RVSP: Normal Ranges: Peak TR Velocity: 1.75 m/s Est. RA Pressure: 3 RV Syst Pressure: 15 (< 30mmHg) IVC Diam: 1.90 cm [id number] Scott Willams MD Electronically signed on 05/10/2025 at 7:01:10 PM Final [facility] Work Phone: BI MAMMO RIGHT DIAGNOSTIC TO MOSYNTHESISon 02-20-2025 BI MAMMO RIGHT DIAGNOSTIC TOMOSYNTHESIS Interpreted By: Hansa Shetty, STUDY: BI MAMMO RIGHT DIAGNOSTIC TOMOSYNTHESIS; 02/20/2025 2:56 pm ACCESSION NUMBER(S): [id number] ORDERING CLINICIAN: JOSIE CARPENTER INDICATION: Annual mammogram for right breast. Recent left lumpectomy. COMPARISON: All prior mammograms that are available at the time of interpretation. FINDINGS: 2D and tomosynthesis images were reviewed at 1 mm slice thickness. Density: The breasts are heterogeneously dense, which may obscure small masses. There has been no change in the parenchymal pattern. No suspicious masses or calcifications are identified. IMPRESSION: No mammographic evidence of malignancy in the right breast. BI-RADS CATEGORY: BI-RADS Category: 1 Negative. Recommendation: Annual Screening. Recommended Date: 5 Months. Laterality: Bilateral. For any future breast imaging appointments, please call [phone] MACRO: None Signed by: Hansa Shetty 02/20/2025 4:04 PM Dictation workstation: [id number] [facility] DBT Breast - right diagnosti con 02-20-2025 No mammographic evidence of malignancy in the right breast. BI-RADS CATEGORY: BI-RADS Category: 1 Negative. Recommendation: Annual Screening. Recommended Date: 5 Months. Laterality: Bilateral. For any future breast imaging appointments, please call [phone]). MACRO: None Signed by: Hansa Shetty 02/20/2025 4:04 PM Dictation workstation: [employer] [id number] Interpreted By: Hansa Shetty, STUDY: BI MAMMO RIGHT DIAGNOSTIC TOMOSYNTHESIS; 02/20/2025 2:56 pm ACCESSION NUMBER(S): [id number] ORDERING CLINICIAN: JOSIE CARPENTER INDICATION: Annual mammogram for right breast. Recent left lumpectomy. COMPARISON: All prior mammograms that are available at the time of interpretation. FINDINGS: 2D and tomosynthesis images were reviewed at 1 mm slice thickness. Density: The breasts are heterogeneously dense, which may obscure small masses. There has been no change in the parenchymal pattern. No suspicious masses or calcifications are identified. MMODAL Hansa Shetty MD - 02/20/2025 Interpreted By: Hansa Shetty, STUDY: BI MAMMO RIGHT DIAGNOSTIC TOMOSYNTHESIS; 02/20/2025 2:56 pm ACCESSION NUMBER(S): [id number] ORDERING CLINICIAN: JOSIE CARPENTER INDICATION: Annual mammogram for right breast. Recent left lumpectomy. COMPARISON: All prior mammograms that are available at the time of interpretation. FINDINGS: 2D and tomosynthesis images were reviewed at 1 mm slice thickness. Density: The breasts are heterogeneously dense, which may obscure small masses. There has been no change in the parenchymal pattern. No suspicious masses or calcifications are identified. IMPRESSION: No mammographic evidence of malignancy in the right breast. BI-RADS CATEGORY: BI-RADS Category: 1 Negative. Recommendation: Annual Screening. Recommended Date: 5 Months. Laterality: Bilateral. For any future breast imaging appointments, please call [phone]). MACRO: None Signed by: Hansa Shetty 02/20/2025 4:04 PM Dictation workstation: [id number] [facility] Work Phone: Radiology Study observation (narrative) [facility] Work Phone: DBT Breast - right diagnosti cOrdered By: Hansa Shetty on 02-20-2025 [facility] Work Phone: ONCO-ECHO LIMITED (STRAIN AN D 3D)on 01-30-2025 ONCO-ECHO LIMITED (STRAIN AND 3D) [facility] [address], [address], [place] [address] TRANSTHORACIC ECHOCARDIOGRAM REPORT Patient Name: MARILIA GUZMAN Reading Physician: [id number] Scott Willams MD Study Date: 01/30/2025 Ordering Provider: [id number] BRENDA CORTES MRN/PID: [id number] Fellow: Nurse: Date of /Age: 9 1950 / 74 years Research Lab Assistant: Luna Henry RDCS Gender assigned at Additional Staff: : Height: 157.48 cm Admit Date: Weight: 57.15 kg Admission Status: Outpatient BSA / BMI: 1.57 m2 / 23.05 kg/m2 Blood Pressure: 123/77 mmHg Department Location: [facility] Study Type: ONCO-ECHO LIMITED (STRAIN AND 3D) Diagnosis/ICD: 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 PHYSICIAN INTERPRETATION: Left Ventricle: Left ventricular ejection fraction is normal, by visual estimate at 55-60%. There are no regional left ventricular wall motion abnormalities. The left ventricular cavity size is normal. There is normal septal and normal posterior left ventricular wall thickness. Left Ventricular Global Longitudinal Strain - 14.7 %. Spectral Doppler shows a Grade I (impaired relaxation pattern) of left ventricular diastolic filling with normal left atrial filling pressure. Left Atrium: The left atrium is mildly dilated. Right Ventricle: The right ventricle is normal in size. There is normal right ventricular global systolic function. Right Atrium: The right atrium is normal in size. Aortic Valve: The aortic valve is trileaflet. There is no evidence of aortic valve regurgitation. Mitral Valve: The mitral valve is abnormal. There is mild mitral valve regurgitation. Mild posterior leaflet mitral valve prolapse with mild somewhat anteriorly directed mitral regurgitation. Tricuspid Valve: The tricuspid valve is structurally normal. No evidence of tricuspid regurgitation. Pulmonic Valve: The pulmonic valve is structurally normal. There is physiologic pulmonic valve regurgitation. Pericardium: There is no pericardial effusion noted. Aorta: The aortic root is normal. ONCO-CARDIOLOGY: Machine: This study was performed on the [employer]. Onco-Cardiology Measurements: Historical Measurements from Previous Study 2D EF (Biplane) 54.7% Global Longitudinal Strain (GLS) -22.9% Current Measurements 2D EF (Biplane) 57.4% Global Longitudinal Strain (GLS) -14.6% GLS Tracking Quality: CONCLUSIONS: 1. Left ventricular ejection fraction is normal, by visual estimate at 55-60%. 2. Spectral Doppler shows a Grade I (impaired relaxation pattern) of left ventricular diastolic filling with normal left atrial filling pressure. 3. The left atrium is mildly dilated. 4. Mild posterior leaflet mitral valve prolapse with mild somewhat anteriorly directed mitral regurgitation. 5. Left Ventricular Global Longitudinal Strain - 14.7 %. QUANTITATIVE DATA SUMMARY: 2D MEASUREMENTS: Normal Ranges: IVSd: 0.80 cm (0.6-1.1cm) LVPWd: 0.90 cm (0.6-1.1cm) LVIDd: 4.60 cm (3.9-5.9cm) LVIDs: 3.00 cm LV Mass Index: 81 g/m2 LVEDV Index: 47 ml/m2 LV % FS 34.8 % LEFT ATRIUM: Normal Ranges: LA Vol A4C: 56.3 ml (22+/-6mL/m2) LA Vol A2C: 54.9 ml LA Vol BP: 58.2 ml LA Vol Index A4C: 35.8ml/m2 LA Vol Index A2C: 35.0 ml/m2 LA Vol Index BP: 37.0 ml/m2 LA Area A4C: 19.8 cm2 LA Area A2C: 18.7 cm2 LA [place] A4C: 5.9 cm LA [place] A2C: 5.4 cm AORTA MEASUREMENTS: Normal Ranges: Asc Ao, d: 3.00 cm (2.1-3.4cm) LV SYSTOLIC FUNCTION: Normal Ranges: EF-A4C View: 55 % (>=55%) EF-A2C View: 59 % EF-Biplane: 57 % EF-Visual: 58 % LV EF Reported: 58 % Global Longitudinal Strain (GLS): 15 % LV DIASTOLIC FUNCTION: Normal Ranges: MV Peak E: 0.67 m/s (0.7-1.2 m/s) MV Peak A: 0.70 m/s (0.42-0.7 m/s) E/A Ratio: 0.96 (1.0-2.2) MV e' 0.101 m/s (>8.0) MV lateral e' 0.11 m/s MV medial e' 0.09 m/s MV A Dur: 127.00 msec E/e' Ratio: 6.63 (<8.0) MITRAL VALVE: Normal Ranges: MV DT: 267 msec (150-240msec) AORTIC VALVE: Normal Ranges: LVOT Diameter: 2.00 cm (1.8-2.4cm) RIGHT VENTRICLE: TAPSE: 23.3 mm [id number] Scott Willams MD Electronically signed on 01/30/2025 at 10:26:31 AM Final Normal [facility] Onco-Echo Limited (Strain an d 3D)Ordered By: Scott Willams on 01-30-2025 LA vol index A/L 37 ml/m2 [facility] Work Phone: [phone] LV A4C EF 54.9 [facility] Work Phone: 75 LV EF 58 % [facility] Work Phone: 75 LV GLS 14.7 % [facility] Work Phone: 75 LVIDd 4.6 cm [facility] Work Phone: 75 LVOT diam 2 cm [facility] Work Phone: 75 MV E/A ratio 0.96 [facility] Work Phone: Tricuspid annular plane systolic excursion 2.3 cm [facility] Work Phone: 75 [facility] Work Phone: Onco-Echo Limited (Strain an d 3D)on 01-30-2025 [facility] [address], [address], [place] [address] TRANSTHORACIC ECHOCARDIOGRAM REPORT Patient Name: MARILIA GUZMAN Reading Physician: [id number] Scott Willams MD Study Date: 01/30/2025 Ordering Provider: [id number] BRENDA CORTES MRN/PID: [id number] Fellow: Nurse: Date of /Age: 9 1950 / 74 years Research Lab Assistant: Luna Henry RDCS Gender assigned at F Additional Staff: : Height: 157.48 cm Admit Date: Weight: 57.15 kg Admission Status: Outpatient BSA / BMI: 1.57 m2 / 23.05 kg/m2 Blood Pressure: 123/77 mmHg Department Location: [facility] Study Type: ONCO-ECHO LIMITED (STRAIN AND 3D) Diagnosis/ICD: 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 PHYSICIAN INTERPRETATION: Left Ventricle: Left ventricular ejection fraction is normal, by visual estimate at 55-60%. There are no regional left ventricular wall motion abnormalities. The left ventricular cavity size is normal. There is normal septal and normal posterior left ventricular wall thickness. Left Ventricular Global Longitudinal Strain - 14.7 %. Spectral Doppler shows a Grade I (impaired relaxation pattern) of left ventricular diastolic filling with normal left atrial filling pressure. Left Atrium: The left atrium is mildly dilated. Right Ventricle: The right ventricle is normal in size. There is normal right ventricular global systolic function. Right Atrium: The right atrium is normal in size. Aortic Valve: The aortic valve is trileaflet. There is no evidence of aortic valve regurgitation. Mitral Valve: The mitral valve is abnormal. There is mild mitral valve regurgitation. Mild posterior leaflet mitral valve prolapse with mild somewhat anteriorly directed mitral regurgitation. Tricuspid Valve: The tricuspid valve is structurally normal. No evidence of tricuspid regurgitation. Pulmonic Valve: The pulmonic valve is structurally normal. There is physiologic pulmonic valve regurgitation. Pericardium: There is no pericardial effusion noted. Aorta: The aortic root is normal. ONCO-CARDIOLOGY: Machine: This study was performed on the [facility] [employer]. Onco-Cardiology Measurements: Historical Measurements from Previous Study 2D EF (Biplane) 54.7% Global Longitudinal Strain (GLS) -22.9% Current Measurements 2D EF (Biplane) 57.4% Global Longitudinal Strain (GLS) -14.6% GLS Tracking Quality: CONCLUSIONS: 1. Left ventricular ejection fraction is normal, by visual estimate at 55-60%. 2. Spectral Doppler shows a Grade I (impaired relaxation pattern) of left ventricular diastolic filling with normal left atrial filling pressure. 3. The left atrium is mildly dilated. 4. Mild posterior leaflet mitral valve prolapse with mild somewhat anteriorly directed mitral regurgitation. 5. Left Ventricular Global Longitudinal Strain - 14.7 %. QUANTITATIVE DATA SUMMARY: 2D MEASUREMENTS: Normal Ranges: IVSd: 0.80 cm (0.6-1.1cm) LVPWd: 0.90 cm (0.6-1.1cm) LVIDd: 4.60 cm (3.9-5.9cm) LVIDs: 3.00 cm LV Mass Index: 81 g/m2 LVEDV Index: 47 ml/m2 LV % FS 34.8 % LEFT ATRIUM: Normal Ranges: LA Vol A4C: 56.3 ml (22+/-6mL/m2) LA Vol A2C: 54.9 ml LA Vol BP: 58.2 ml LA Vol Index A4C: 35.8ml/m2 LA Vol Index A2C: 35.0 ml/m2 LA Vol Index BP: 37.0 ml/m2 LA Area A4C: 19.8 cm2 LA Area A2C: 18.7 cm2 LA [place] A4C: 5.9 cm LA [place] A2C: 5.4 cm AORTA MEASUREMENTS: Normal Ranges: Asc Ao, d: 3.00 cm (2.1-3.4cm) LV SYSTOLIC FUNCTION: Normal Ranges: EF-A4C View: 55 % (>=55%) EF-A2C View: 59 % EF-Biplane: 57 % EF-Visual: 58 % LV EF Reported: 58 % Global Longitudinal Strain (GLS): 15 % LV DIASTOLIC FUNCTION: Normal Ranges: MV Peak E: 0.67 m/s (0.7-1.2 m/s) MV Peak A: 0.70 m/s (0.42-0.7 m/s) E/A Ratio: 0.96 (1.0-2.2) MV e' (more content not included)... Scott Marmolejo MD - 01/30/2025 [facility] [address], [address], [place] [address] TRANSTHORACIC ECHOCARDIOGRAM REPORT Patient Name: MARILIA Choi Physician: [id number] Scott Willams MD Study Date: 01/30/2025 Ordering Provider: [id number] BRENDA CORTES MRN/PID: [id number] Fellow: Nurse: Date of /Age: 9 1950 / 74 years Research Lab Assistant: Luna Henry RDCS Gender assigned at F Additional Staff: : Height: 157.48 cm Admit Date: Weight: 57.15 kg Admission Status: Outpatient BSA / BMI: 1.57 m2 / 23.05 kg/m2 Blood Pressure: 123/77 mmHg Department Location: [facility] Study Type: ONCO-ECHO LIMITED (STRAIN AND 3D) Diagnosis/ICD: 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 PHYSICIAN INTERPRETATION: Left Ventricle: Left ventricular ejection fraction is normal, by visual estimate at 55-60%. There are no regional left ventricular wall motion abnormalities. The left ventricular cavity size is normal. There is normal septal and normal posterior left ventricular wall thickness. Left Ventricular Global Longitudinal Strain - 14.7 %. Spectral Doppler shows a Grade I (impaired relaxation pattern) of left ventricular diastolic filling with normal left atrial filling pressure. Left Atrium: The left atrium is mildly dilated. Right Ventricle: The right ventricle is normal in size. There is normal right ventricular global systolic function. Right Atrium: The right atrium is normal in size. Aortic Valve: The aortic valve is trileaflet. There is no evidence of aortic valve regurgitation. Mitral Valve: The mitral valve is abnormal. There is mild mitral valve regurgitation. Mild posterior leaflet mitral valve prolapse with mild somewhat anteriorly directed mitral regurgitation. Tricuspid Valve: The tricuspid valve is structurally normal. No evidence of tricuspid regurgitation. Pulmonic Valve: The pulmonic valve is structurally normal. There is physiologic pulmonic valve regurgitation. Pericardium: There is no pericardial effusion noted. Aorta: The aortic root is normal. ONCO-CARDIOLOGY: Machine: This study was performed on the [employer]. Onco-Cardiology Measurements: Historical Measurements from Previous Study 2D EF (Biplane) 54.7% Global Longitudinal Strain (GLS) -22.9% Current Measurements 2D EF (Biplane) 57.4% Global Longitudinal Strain (GLS) -14.6% GLS Tracking Quality: CONCLUSIONS: 1. Left ventricular ejection fraction is normal, by visual estimate at 55-60%. 2. Spectral Doppler shows a Grade I (impaired relaxation pattern) of left ventricular diastolic filling with normal left atrial filling pressure. 3. The left atrium is mildly dilated. 4. Mild posterior leaflet mitral valve prolapse with mild somewhat anteriorly directed mitral regurgitation. 5. Left Ventricular Global Longitudinal Strain - 14.7 %. QUANTITATIVE DATA SUMMARY: 2D MEASUREMENTS: Normal Ranges: IVSd: 0.80 cm (0.6-1.1cm) LVPWd: 0.90 cm (0.6-1.1cm) LVIDd: 4.60 cm (3.9-5.9cm) LVIDs: 3.00 cm LV Mass Index: 81 g/m2 LVEDV Index: 47 ml/m2 LV % FS 34.8 % LEFT ATRIUM: Normal Ranges: LA Vol A4C: 56.3 ml (22+/-6mL/m2) LA Vol A2C: 54.9 ml LA Vol BP: 58.2 ml LA Vol Index A4C: 35.8ml/m2 LA Vol Index A2C: 35.0 ml/m2 LA Vol Index BP: 37.0 ml/m2 LA Area A4C: 19.8 cm2 LA Area A2C: 18.7 cm2 LA [place] A4C: 5.9 cm LA [place] A2C: 5.4 cm AORTA MEASUREMENTS: Normal Ranges: Asc Ao, d: 3.00 cm (2.1-3.4cm) LV SYSTOLIC FUNCTION: Normal Ranges: EF-A4C View: 55 % (>=55%) EF-A2C View: 59 % EF-Biplane: 57 % EF-Visual: 58 % LV EF Reported: 58 % Global Longitudinal Strain (GLS): 15 % LV DIASTOLIC FUNCTION: Normal Ranges: MV Peak E: 0.67 m/s (0.7-1.2 m/s) MV Peak A: 0.70 m/s (0.42-0.7 m/s) E/A Ratio: 0.96 (1.0-2.2) MV e' 0.101 m/s (>8.0) MV lateral e' 0.11 m/s MV medial e' 0.09 m/s MV A Dur: 127.00 msec E/e' Ratio: 6.63 (<8.0) MITRAL VALVE: Normal Ranges: MV DT: 267 msec (150-240msec) AORTIC VALVE: Normal Ranges: LVOT Diameter: 2.00 cm (1.8-2.4cm) RIGHT VENTRICLE: TAPSE: 23.3 mm [id number] Scott Willams MD Electronically signed on 01/30/2025 at 10:26:31 AM Final [facility] Work Phone: CBC W Auto Differential pane l (Bld)on 01-23-2025 Basophils (Bld) [#/Vol] 0.06 x10*3/uL Normal 0.00-0.10 [facility] Comment on above: Performed By: #### 1 9123-9 #### ROBBY CARPENTER ([id number]) [facility] ([facility]) [address] [place] [address] Basophils/100 WBC (Bld) 1.1 % Normal 0.0-2.0 [facility] Comment on above: Performed By: #### 1 9123-9 #### ROBBY CARPENTER ([id number]) [facility] ([facility]) [address] [place] [address] Eosinophils (Bld) [#/Vol] 0.29 x10*3/uL Normal 0.00-0.40 [facility] Comment on above: Performed By: #### 1 9123-9 #### ROBBY CARPENTER ([id number]) [facility] ([facility]) [address] [place] [address] Eosinophils/100 WBC (Bld) 5.2 % Normal 0.0-6.0 [facility] Comment on above: Performed By: #### 1 9123-9 #### ROBBY CARPENTER ([id number]) [facility] ([facility]) [address] [place] [address] Erythrocyte distribution width (RBC) [Ratio] 13.2 % Normal 11.5-14.5 [facility] Comment on above: Performed By: #### 1 9123-9 #### ROBBY CARPENTER ([id number]) [facility] ([facility]) [address] [place] [address] Hematocrit (Bld) [Volume fraction] 37.0 % Normal 36.0-46.0 [facility] Comment on above: Performed By: #### 1 9123-9 #### ROBBY CARPENTER ([id number]) [facility] ([facility]) [address] [place] [id number] Hemoglobin (Bld) [Mass/Vol] 12.6 g/dL Normal 12.0-16.0 [facility] Comment on above: Performed By: #### 1 9123-9 #### ROBBY CARPENTER ([id number]) [facility] ([facility]) [address] [place] [id number] Immature granulocytes (Bld) [#/Vol] 0.01 x10*3/uL Normal 0.00-0.50 [facility] Comment on above: Performed By: #### 1 9123-9 #### ROBBY CARPENTER ([id number]) [facility] ([facility]) [address] [place] [id number] Immature granulocytes/100 WBC (Bld) 0.2 % Normal 0.0-0.9 [facility] Comment on above: Result Comment: Jaennie ture Granulocyte Count (IG) includes promyelocytes, myelocytes and metamyelocytes but does not include bands. Percent differential counts (%) should be interpreted in the context of the absolute cell counts (cells/UL). Performed By: #### 1 9123-9 #### ROBBY CARPENTER ([id number]) [facility] ([facility]) [address] [place] [address] Lymphocytes (Bld) [#/Vol] 1.27 x10*3/uL Normal 0.80-3.00 [facility] Comment on above: Performed By: #### 1 9123-9 #### ROBBY CARPENTER ([id number]) [facility] ([facility]) [address] [place] [address] Lymphocytes/100 WBC (Bld) 22.7 % Normal 13.0-44.0 [facility] Comment on above: Performed By: #### 1 9123-9 #### ROBBY CARPENTER ([id number]) [facility] ([facility]) [address] [place] [address] MCH (RBC) [Entitic mass] 32.2 pg Normal 26.0-34.0 [facility] Comment on above: Performed By: #### 1 9123-9 #### ROBBY CARPENTER ([id number]) [facility] ([facility]) [address] [place] [id number] MCHC (RBC) [Mass/Vol] 34.1 g/dL Normal 32.0-36.0 [facility] Comment on above: Performed By: #### 1 9123-9 #### ROBBY CARPENTER ([id number]) [facility] ([facility]) [address] [place] [id number] MCV (RBC) [Entitic vol] 95 fL Normal 80-100 [facility] Comment on above: Performed By: #### 1 9123-9 #### ROBBY CARPENTER ([id number]) [facility] ([facility]) [address] [place] [id number] Monocytes (Bld) [#/Vol] 0.45 x10*3/uL Normal 0.05-0.80 [facility] Comment on above: Performed By: #### 1 9123-9 #### ROBBY CARPENTER ([id number]) [facility] ([facility]) [address] [place] [address] Monocytes/100 WBC (Bld) 8.1 % Normal 2.0-10.0 [facility] Comment on above: Performed By: #### 1 9123-9 #### ROBBY CARPENTER ([id number]) [facility] ([facility]) [address] [place] [address] Neutrophils (Bld) [#/Vol] 3.51 x10*3/uL Normal 1.60-5.50 [facility] Comment on above: Result Comment: Perc ent differential counts (%) should be interpreted in the context of the absolute cell counts (cells/uL). Performed By: #### 1 9123-9 #### ROBBY CARPENTER ([id number]) [facility] ([facility]) [address] [place] [address] Neutrophils/100 WBC (Bld) 62.7 % Normal 40.0-80.0 [facility] Comment on above: Performed By: #### 1 9123-9 #### ROBBY CARPENTER ([id number]) [facility] ([facility]) [address] [place] [address] Nucleated RBC/100 WBC (Bld) [Ratio] Normal [facility] Comment on above: Result Comment: Not Measured Performed By: #### 1 9123-9 #### ROBBY CARPENTER ([id number]) [facility] ([facility]) [address] [place] [address] Platelets (Bld) [#/Vol] 164 x10*3/uL Normal 150-450 [facility] Comment on above: Performed By: #### 1 9123-9 #### ROBBY CARPENTER ([id number]) [facility] ([facility]) [address] [place] [address] RBC (Bld) [#/Vol] 3.91 x10*6/uL Low 4.00-5.20 [facility] Comment on above: Performed By: #### 1 9123-9 #### ROBBY CARPENTER ([id number]) [facility] ([facility]) [address] [place] [address] WBC (Bld) [#/Vol] 5.6 x10*3/uL Normal 4.4-11.3 [facility] Comment on above: Performed By: #### 1 9123-9 #### ROBBY CARPENTER ([id number]) [facility] ([facility]) [address] [place] [address] Comprehensive metabolic 2000 panelon 01-23-2025 Albumin BCP dye [Mass/Vol] 4.2 g/dL Normal 3.4-5.0 [facility] Comment on above: Performed By: #### 1 9123-9 #### ROBBY CARPENTER ([id number]) [facility] ([facility]) [address] [place] [address] ALP [Catalytic activity/Vol] 96 U/L Normal 33-136 [facility] Comment on above: Performed By: #### 1 9123-9 #### ROBBY CARPENTER ([id number]) [facility] ([facility]) [address] [place] [address] ALT With P-5'-P [Catalytic activity/Vol] 40 U/L Normal 7-45 [facility] Comment on above: Result Comment: Amber ents treated with Sulfasalazine may generate falsely decreased results for ALT. Performed By: #### 1 9123-9 #### ROBBY CARPENTER ([id number]) [facility] ([facility]) [address] [place] [address] Anion gap [Moles/Vol] 15 mmol/L Normal 10-20 [facility] Comment on above: Performed By: #### 1 9123-9 #### ROBBY CARPENTER ([id number]) [facility] ([facility]) [address] [place] [address] AST With P-5'-P [Catalytic activity/Vol] 37 U/L Normal 9-39 [facility] Comment on above: Performed By: #### 1 9123-9 #### ROBBY CARPENTER ([id number]) [facility] ([facility]) [address] [place] [address] Bilirubin [Mass/Vol] 0.6 mg/dL Normal 0.0-1.2 [facility] Comment on above: Performed By: #### 1 9123-9 #### ROBBY CARPENTER ([id number]) [facility] ([facility]) [address] [place] [address] Calcium [Mass/Vol] 9.5 mg/dL Normal 8.6-10.6 [facility] Comment on above: Performed By: #### 1 9123-9 #### ROBBY CARPENTER ([id number]) [facility] ([facility]) [address] [place] [address] Chloride [Moles/Vol] 107 mmol/L Normal 98-107 [facility] Comment on above: Performed By: #### 1 9123-9 #### ROBBY CARPENTER ([id number]) [facility] ([facility]) [address] [place] [address] CO2 [Moles/Vol] 24 mmol/L Normal 21-32 [facility] Comment on above: Performed By: #### 1 9123-9 #### ROBBY CARPENTER ([id number]) [facility] ([facility]) [address] [place] [address] Creatinine [Mass/Vol] 0.69 mg/dL Normal 0.50-1.05 [facility] Comment on above: Performed By: #### 1 9123-9 #### ROBBY CARPENTER ([id number]) [facility] ([facility]) [address] [place] [address] GFR/1.73 sq M.predicted MDRD (S/P/Bld) [Vol rate/Area] mL/min/{1.73_m2} Normal >60 [facility] Comment on above: Result Comment: Calc ulations of estimated GFR are performed using the 2020 CKD-EPI Study Refit equation without the race variable for the IDMS-Traceable creatinine methods. https://jasn.asnjournals.org/content/early/ASN.58880 51370 Performed By: #### 1 9123-9 #### ROBBY CARPENTER ([id number]) [facility] ([facility]) [address] [place] [address] Glucose [Mass/Vol] 149 mg/dL High 74-99 [facility] Comment on above: Performed By: #### 1 9123-9 #### ROBBY CARPENTER ([id number]) [facility] ([facility]) [address] [place] [address] Potassium [Moles/Vol] 4.2 mmol/L Normal 3.5-5.3 [facility] Comment on above: Performed By: #### 1 9123-9 #### ROBBY CARPENTER ([id number]) [facility] ([facility]) [address] [place] [address] Protein [Mass/Vol] 6.1 g/dL Low 6.4-8.2 [facility] Comment on above: Performed By: #### 1 9123-9 #### ROBBY CARPENTER ([id number]) [facility] ([facility]) [address] [place] [address] Sodium [Moles/Vol] 142 mmol/L Normal 136-145 [facility] Comment on above: Performed By: #### 1 9123-9 #### ROBBY CARPENTER ([id number]) [facility] ([facility]) [address] [place] [address] Urea nitrogen [Mass/Vol] 32 mg/dL High 6-23 [facility] Comment on above: Performed By: #### 1 9123-9 #### ROBBY CARPENTER ([id number]) [facility] ([facility]) [address] [place] [id number] Immunoglobulin light chains. free panel (S)on 01-23-2025 Immunoglobulin light chains.kappa [Mass/Vol] 2.21 mg/dL High 0.33-1.94 [facility] Comment on above: Order Comment: Undet ected antigen excess is a rare event but cannot beexcluded. If these free light chain results do not agreewith other clinical or laboratory findings, or if thesample is from a patient that has previously demonstratedantigen excess, the result must be checked by retestingat a higher sample dilution. Results should always beinterpreted in conjunction with other laboratory testsand clinical evidence; any anomalies should be discussedwith the testing laboratory. Performed By: #### 1 9123-9 #### ROBBY CARPENTER ([id number]) [facility] ([facility]) [address] [place] [address] Immunoglobulin light chains.kappa/Immunoglo bulin light chains.lambda (S) [Mass ratio] 1.18 Normal 0.26-1.65 [facility] Comment on above: Order Comment: Undet ected antigen excess is a rare event but cannot beexcluded. If these free light chain results do not agreewith other clinical or laboratory findings, or if thesample is from a patient that has previously demonstratedantigen excess, the result must be checked by retestingat a higher sample dilution. Results should always beinterpreted in conjunction with other laboratory testsand clinical evidence; any anomalies should be discussedwith the testing laboratory. Performed By: #### 1 9123-9 #### ROBBY CARPENTER ([id number]) [facility] ([facility]) [address] [place] [address] Immunoglobulin light chains.lambda [Mass/Vol] 1.88 mg/dL Normal 0.57-2.63 [facility] Comment on above: Order Comment: Undet ected antigen excess is a rare event but cannot beexcluded. If these free light chain results do not agreewith other clinical or laboratory findings, or if thesample is from a patient that has previously demonstratedantigen excess, the result must be checked by retestingat a higher sample dilution. Results should always beinterpreted in conjunction with other laboratory testsand clinical evidence; any anomalies should be discussedwith the testing laboratory. Performed By: #### 1 9123-9 #### ROBBY CARPENTER ([id number]) [facility] ([facility]) [address] [place] [address] Lactate dehydrogenaseon 05-0 LDH Lactate to pyruvate reaction [Catalytic activity/Vol] 154 U/L Normal 84-246 [facility] Comment on above: Performed By: #### 1 9123-9 #### ROBBY CARPENTER ([id number]) [facility] ([facility]) [address] [place] [address] Protein electrophoresis pane georgina 01-23-2025 Albumin [Mass/Vol] 3.9 g/dL Normal 3.4-5.0 [facility] Comment on above: Performed By: #### 2 4321-2 #### ROBBY CARPENTER ([id number]) [facility] ([facility]) [address] [place] [address] ALPHA 1 GLOBULIN 0.2 g/dL Normal 0.2-0.6 [facility] Comment on above: Performed By: #### 2 4321-2 #### ROBBY CARPENTER ([id number]) [facility] ([facility]) [address] [place] [address] ALPHA 2 GLOBULIN 0.6 g/dL Normal 0.4-1.1 [facility] Comment on above: Performed By: #### 2 4321-2 #### ROBBY CARPENTER ([id number]) [facility] ([facility]) [address] [place] [address] BETA GLOBULIN 0.6 g/dL Normal 0.5-1.2 [facility] Comment on above: Performed By: #### 2 4321-2 #### ROBBY CARPENTER ([id number]) [facility] ([facility]) [address] [place] [address] GAMMA GLOBULIN 0.8 g/dL Normal 0.5-1.4 [facility] Comment on above: Performed By: #### 2 4321-2 #### ROBBY CARPENTER ([id number]) [facility] ([facility]) [address] [place] [address] PATH REVIEW-SERUM PROTEIN ELECTROPHORESIS Reviewed and approved by CAMILO MARTINEZ on 01/24/25 at 9:13 PM. [facility] Comment on above: Performed By: #### 2 4321-2 #### ROBBY CARPENTER ([id number]) [facility] ([facility]) [address] [place] [address] PROTEIN ELECTROPHORESIS COMMENT Normal. [facility] Comment on above: Performed By: #### 2 4321-2 #### ROBBY CARPENTER ([id number]) [facility] ([facility]) [address] [place] [address] Basic metabolic 2000 panelon 12-13-2024 Anion gap [Moles/Vol] 12 mmol/L 10 - 2 0 mmol/L [facility] Calcium [Mass/Vol] 9.8 mg/dL 8.6 - 10. 3 mg/dL [facility] Chloride [Moles/Vol] 109 mmol/L High 98 - 10 7 mmol/L [facility] CO2 [Moles/Vol] 26 mmol/L 21 - 32 mmol/L [facility] Creatinine [Mass/Vol] 0.72 mg/dL 0.50 - 1.05 mg/dL [facility] GFR/1.73 sq M.predicted among non-blacks MDRD (S/P/Bld) [Vol rate/Area] 88 mL/min/{1.73_m2} - PINF [facility] Comment on above: Calculations of amarjit mated GFR are performed using the 2020 CKD-EPI Study Refit equation without the race variable for the IDMS-Traceable creatinine methods. https://jasn.asnjournals.org/content//ASN.61885 81974 Glucose [Mass/Vol] 95 mg/dL 74 - 99 mg/dL [facility] Interpretation and review of laboratory results Abnormal [facility] Potassium [Moles/Vol] 4.2 mmol/L 3.5 - 5.3 mmol/L [facility] Sodium [Moles/Vol] 143 mmol/L 136 - 145 mmol/L [facility] Urea nitrogen [Mass/Vol] 27 mg/dL High 6 - 23 mg/dL [facility] Anion gap [Moles/Vol] 12 mmol/L Normal 10-20 [facility] Comment on above: Performed By: #### 2 4321-2 #### ROBBY CARPENTER ([id number]) [facility] ([facility]) [address] [place] [address] Calcium [Mass/Vol] 9.8 mg/dL Normal 8.6-10.3 [facility] Comment on above: Performed By: #### 2 4321-2 #### ROBBY CARPENTER ([id number]) [facility] ([facility]) [address] [place] [address] Chloride [Moles/Vol] 109 mmol/L High 98-107 [facility] Comment on above: Performed By: #### 2 4321-2 #### ROBBY CARPENTER ([id number]) [facility] ([facility]) [address] [place] [address] CO2 [Moles/Vol] 26 mmol/L Normal 21-32 [facility] Comment on above: Performed By: #### 2 4321-2 #### ROBBY CARPENTER ([id number]) [facility] ([facility]) [address] [place] [address] Creatinine [Mass/Vol] 0.72 mg/dL Normal 0.50-1.05 [facility] Comment on above: Performed By: #### 2 432-2 #### ROBBY CARPENTER ([id number]) [facility] ([facility]) [address] [place] [address] Glomerular filtration rate/1.73 sq M.predicted 88 mL/min/1.73m*2 Normal >60 [facility] Comment on above: Result Comment: Calc ulations of estimated GFR are performed using the 2020 CKD-EPI Study Refit equation without the race variable for the IDMS-Traceable creatinine methods. https://jasn.asnjournals.org/content/early//ASN.30170 68024 Performed By: #### 2 4320-2 #### ROBBY CARPENTER ([id number]) [facility] ([facility]) [address] [place] [address] Glucose [Mass/Vol] 95 mg/dL Normal 74-99 [facility] Comment on above: Performed By: #### 2 4321-2 #### ROBBY CARPENTER ([id number]) [facility] ([facility]) [address] [place] [address] Potassium [Moles/Vol] 4.2 mmol/L Normal 3.5-5.3 [facility] Comment on above: Performed By: #### 2 4321-2 #### ROBBY CARPENTER ([id number]) [facility] ([facility]) [address] [place] [address] Sodium [Moles/Vol] 143 mmol/L Normal 136-145 [facility] Comment on above: Performed By: #### 2 4321-2 #### ROBBY FAISAL ([id number]) [facility] ([facility]) [address] [place] [address] Urea nitrogen [Mass/Vol] 27 mg/dL High 6-23 [facility] Comment on above: Performed By: #### 2 4321-2 #### ROBBY FAISAL ([id number]) [facility] ([facility]) [address] [place] [address] IR CVC PORT REMOVALon 2024 IR CVC PORT REMOVAL Interpreted By: Derick Aguilar, STUDY: IR CVC PORT REMOVAL; 12/13/2024 2:54 pm INDICATION: Signs/Symptoms:chemo complete. COMPARISON: None. ACCESSION NUMBER(S): [id number] ORDERING CLINICIAN: DIMA CAGE TECHNIQUE: INTERVENTIONALIST(S): Derick Georges MD CONSENT: The patient/patient's POA/next of kin was informed of the nature of the proposed procedure. The purposes, alternatives, risks, and benefits were explained and discussed. All questions were answered and consent was obtained. RADIATION EXPOSURE: Fluoroscopy time: 0.1 min. Dose: 0.52 mGy. SEDATION: Moderate conscious IV sedation services (supervision of administration, induction, and maintenance) were provided by the physician performing the procedure with intravenous fentanyl and versed for 12 minutes. The physician was assisted by an independent trained observer, an interventional radiology nurse, in the continuous monitoring of patient level of consciousness and physiologic status. MEDICATION/CONTRAST: No additional TIME OUT: A time out was performed immediately prior to procedure start with the interventional team, correctly identifying the patient name, date of , MRN, procedure, anatomy (including marking of site and side), patient position, procedure consent form, relevant laboratory and imaging test results, antibiotic administration, safety precautions, and procedure-specific equipment needs. COMPLICATIONS: No immediate adverse events identified. FINDINGS: The skin site over the right chest port reservoir was prepped and draped with maximal sterile manner. The skin and subcutaneous tissues at the original port incision site were anesthetized with 1% lidocaine with epinephrine. The subcutaneous tissues surrounding the port were anesthetized with 1% lidocaine with epinephrine. Using a #15 blade, an incision was made over the previous incision site. Using blunt dissection, the reservoir was externalized and the catheter leading to the jugular vein was completely removed. Hemostasis was obtained using manual compression at the internal jugular vein access site. The port reservoir pocket demonstrated no signs of inflammation or purulence. The pocket was irrigated with saline. Interrupted subcutaneous 3-0 Vicryl self-absorbing sutures were placed in the incision. The incision site was covered with Dermabond and a sterile dressing was subsequently applied. There were no immediate or post-procedural complications. IMPRESSION: Successful removal of the right chest Mediport. I was present for and/or performed the critical portions of the procedure and immediately available throughout the entire procedure. I personally reviewed the image(s) / study and resident interpretation. I agree with the findings as stated. Performed and dictated at [facility]. MACRO: None Signed by: Derick Georges 12/15/2024 10:55 PM Dictation workstation: [id number] Normal [facility] Wound Cultureon 12-01-2024 WC CHEST WOUND Staphylococcus aureus Amount Growth 1+ Staphylococcus aureus: REACTION cefOXitin Susc Islt Doxycycline Islt LON <=0.5 S Clindamycin Islt LON 0.25 S Clindamycin.induced Susc Islt NEG Erythromycin Islt LON >=8 R Gentamicin Islt LON <=0.5 S Linezolid Islt LON 2 S Moxifloxacin Islt LON <=0.25 S Oxacillin Susc Islt 0.5 S Tetracycline Islt LON <=1 S TMP SMX Islt LON <=10 S Vancomycin Islt LON <=0.5 S Normal [facility] Comment on above: Performed By: #### M 100.1999, M100.3000 #### [facility] [address] [place], [place], [id number] Gram Stainon 11-29-2024 GS CHEST WOUND Gram Stain No organisms seen No cells seen Normal [facility] Comment on above: Performed By: #### M 100.1999, M100.3000 #### [facility] [address] [place], [address] Gram stainOrdered By: Chandler man on 11-28-2024 Microscopic observation Gram stain Nom (Unsp spec) [facility] - Hematology and Cell countsOrdered By: Chandler Calzada on 11-28-2024 HbA1c (Bld) [Mass fraction] 6.9 % High 4.2-6.3 [facility] Routine wound cultureOrdered By: Chandler Calzada on 11-28-2024 Wound Culture Staphylococcus aureus Abnormal [facility] CBC W Auto Differential pane l (Bld)on 11-21-2024 Basophils (Bld) [#/Vol] 0.06 x10*3/uL Normal 0.00-0.10 [facility] Comment on above: Performed By: #### 1 9123-9 #### ROBBY CARPENTER ([id number]) [facility] ([facility]) [address] [place] [address] Basophils/100 WBC (Bld) 1.0 % Normal 0.0-2.0 [facility] Comment on above: Performed By: #### 1 9123-9 #### ROBBY CARPENTER ([id number]) [facility] ([facility]) [address] [place] [address] Eosinophils (Bld) [#/Vol] 0.48 x10*3/uL High 0.00-0.40 [facility] Comment on above: Performed By: #### 1 9123-9 #### ROBBY CARPENTER ([id number]) [facility] ([facility]) [address] [place] [address] Eosinophils/100 WBC (Bld) 7.8 % Normal 0.0-6.0 [facility] Comment on above: Performed By: #### 1 9123-9 #### ROBBY CARPENTER ([id number]) [facility] ([facility]) [address] [place] [address] Erythrocyte distribution width (RBC) [Ratio] 13.2 % Normal 11.5-14.5 [facility] Comment on above: Performed By: #### 1 9123-9 #### ROBBY CARPENTER ([id number]) [facility] ([facility]) [address] [place] [address] Hematocrit (Bld) [Volume fraction] 37.1 % Normal 36.0-46.0 [facility] Comment on above: Performed By: #### 1 9123-9 #### ROBBY CARPENTER ([id number]) [facility] ([facility]) [address] [place] [address] Hemoglobin (Bld) [Mass/Vol] 12.6 g/dL Normal 12.0-16.0 [facility] Comment on above: Performed By: #### 1 9123-9 #### ROBBY CARPENTER ([id number]) [facility] ([facility]) [address] [place] [id number] Immature granulocytes (Bld) [#/Vol] 0.01 x10*3/uL Normal 0.00-0.50 [facility] Comment on above: Performed By: #### 1 9123-9 #### ROBBY CARPENTER ([id number]) [facility] ([facility]) [address] [place] [id number] Immature granulocytes/100 WBC (Bld) 0.2 % Normal 0.0-0.9 [facility] Comment on above: Result Comment: Jeannie ture Granulocyte Count (IG) includes promyelocytes, myelocytes and metamyelocytes but does not include bands. Percent differential counts (%) should be interpreted in the context of the absolute cell counts (cells/UL). Performed By: #### 1 9123-9 #### ROBBY CARPENTER ([id number]) [facility] ([facility]) [address] [place] [address] Lymphocytes (Bld) [#/Vol] 0.90 x10*3/uL Normal 0.80-3.00 [facility] Comment on above: Performed By: #### 1 9123-9 #### ROBBY CARPENTER ([id number]) [facility] ([facility]) [address] [place] [address] Lymphocytes/100 WBC (Bld) 14.6 % Normal 13.0-44.0 [facility] Comment on above: Performed By: #### 1 9123-9 #### ROBBY CARPENTER ([id number]) [facility] ([facility]) [address] [place] [address] MCH (RBC) [Entitic mass] 31.3 pg Normal 26.0-34.0 [facility] Comment on above: Performed By: #### 1 9123-9 #### ROBBY CARPENTER ([id number]) [facility] ([facility]) [address] [place] [address] MCHC (RBC) [Mass/Vol] 34.0 g/dL Normal 32.0-36.0 [facility] Comment on above: Performed By: #### 1 9123-9 #### ROBBY CARPENTER ([id number]) [facility] ([facility]) [address] [place] [address] MCV (RBC) [Entitic vol] 92 fL Normal 80-100 [facility] Comment on above: Performed By: #### 1 9123-9 #### ROBBY CARPENTER ([id number]) [facility] ([facility]) [address] [place] [address] Monocytes (Bld) [#/Vol] 0.48 x10*3/uL Normal 0.05-0.80 [facility] Comment on above: Performed By: #### 1 9123-9 #### ROBBY CARPENTER ([id number]) [facility] ([facility]) [address] [place] [id number] Monocytes/100 WBC (Bld) 7.8 % Normal 2.0-10.0 [facility] Comment on above: Performed By: #### 1 9123-9 #### ROBBY CARPENTER ([id number]) [facility] ([facility]) [address] [place] [address] Neutrophils (Bld) [#/Vol] 4.24 x10*3/uL Normal 1.60-5.50 [facility] Comment on above: Result Comment: Perc ent differential counts (%) should be interpreted in the context of the absolute cell counts (cells/uL). Performed By: #### 1 9123-9 #### ROBBY CARPENTER ([id number]) [facility] ([facility]) [address] [place] [address] Neutrophils/100 WBC (Bld) 68.6 % Normal 40.0-80.0 [facility] Comment on above: Performed By: #### 1 9123-9 #### ROBBY CARPENTER ([id number]) [facility] ([facility]) [address] [place] [address] Nucleated RBC/100 WBC (Bld) [Ratio] Normal [facility] Comment on above: Result Comment: Not Measured Performed By: #### 1 9123-9 #### ROBBY CARPENTER ([id number]) [facility] ([facility]) [address] [place] [address] Platelets (Bld) [#/Vol] 184 x10*3/uL Normal 150-450 [facility] Comment on above: Performed By: #### 1 9123-9 #### ROBBY CARPENTER ([id number]) [facility] ([facility]) [address] [place] [address] RBC (Bld) [#/Vol] 4.03 x10*6/uL Normal 4.00-5.20 [facility] Comment on above: Performed By: #### 1 9123-9 #### ROBBY CARPENTER ([id number]) [facility] ([facility]) [address] [place] [address] WBC (Bld) [#/Vol] 6.2 x10*3/uL Normal 4.4-11.3 [facility] Comment on above: Performed By: #### 1 9123-9 #### ROBBY CARPENTER ([id number]) [facility] ([facility]) [address] [place] [address] No Panel Informationon 11-18 Actual Fractions Delivered [address] [place] [address] Actual Session Delivered Dose 266 cGray [facility] Actual Total Dose 4256 cGray [facility] Course Number 1 [facility] Elapsed Days [facility] Last Date 11/18/2024 [facility] Prescribed Fractional Dose 266 cGray [facility] Prescribed Number of Fractions 16 [facility] Prescribed Technique VMAT [facility] Prescribed Total Dose 4256 cGray [facility] Prescription Pattern Comment CBCT daily match CW, neck [facility] Start Date 10/27/2024 [facility] Treatment Site L[facility]Bre[facility]Ns [facility] No Panel Informationon 11-17 Actual Fractions Delivered 15 [facility] Actual Session Delivered Dose 266 cGray [facility] Actual Total Dose 3990 cGray [facility] Course Number 1 [facility] Elapsed Days 21 [facility] Last Date 11/17/2024 [facility] Prescribed Fractional Dose 266 cGray [facility] Prescribed Number of Fractions 16 [facility] Prescribed Technique VMAT [facility] Prescribed Total Dose 4256 cGray [facility] Prescription Pattern Comment CBCT daily match CW, neck [facility] Start Date 10/27/2024 [facility] No Panel Informationon 11-16 Actual Fractions Delivered 14 [facility] Actual Session Delivered Dose 266 cGray [facility] Actual Total Dose 3724 cGray [facility] Course Number 1 [facility] Elapsed Days 20 [facility] Last Date 11/16/2024 [facility] Prescribed Fractional Dose 266 cGray [facility] Prescribed Number of Fractions 16 [facility] Prescribed Technique VMAT [facility] Prescribed Total Dose 4256 cGray [facility] Prescription Pattern Comment CBCT daily match CW, neck [facility] Start Date 10/27/2024 [facility] Treatment Site L_Breast[facility]Ns [facility] No Panel Informationon 11-14 Actual Fractions Delivered 13 [facility] Actual Session Delivered Dose 266 cGray [facility] Actual Total Dose 3458 cGray [facility] Course Number 1 [facility] Elapsed Days 18 [facility] Last Date 11/14/2024 [facility] Prescribed Fractional Dose 266 cGray [facility] Prescribed Number of Fractions 16 [facility] Prescribed Technique VMAT [facility] Prescribed Total Dose 4256 cGray [facility] Prescription Pattern Comment CBCT daily match CW, neck [facility] Start Date 10/27/2024 [facility] Treatment [facility] [place] No Panel Informationon 11-11 Actual Fractions Delivered 12 [facility] Actual Session Delivered Dose 266 cGray [facility] Actual Total Dose 3192 cGray [facility] Course Number 1 [facility] Elapsed Days 15 [facility] Last Date 11/11/2024 [facility] Prescribed Fractional Dose 266 cGray [facility] Prescribed Number of Fractions 16 [facility] Prescribed Technique VMAT [facility] Prescribed Total Dose 4256 cGray [facility] Prescription Pattern Comment CBCT daily match CW, neck [facility] Start Date 10/27/2024 [facility] Treatment [facility] [place] No Panel Informationon 11-10 Actual Fractions Delivered 11 [facility] Actual Session Delivered Dose 266 cGray [facility] Actual Total Dose 2926 cGray [facility] Course Number 1 [facility] Elapsed Days 14 [facility] Last Date 11/10/2024 [facility] Prescribed Fractional Dose 266 cGray [facility] Prescribed Number of Fractions 16 [facility] Prescribed Technique VMAT [facility] Prescribed Total Dose 4256 cGray [facility] Prescription Pattern Comment CBCT daily match CW, neck [facility] Start Date 10/27/2024 [facility] Treatment [facility] [place] No Panel Informationon 11-09 Actual Fractions Delivered 10 [facility] Actual Session Delivered Dose 266 cGray [facility] Actual Total Dose 2660 cGray [facility] Course Number 1 [facility] Elapsed Days 13 [facility] Last Date 11/09/2024 [facility] Prescribed Fractional Dose 266 cGray [facility] Prescribed Number of Fractions 16 [facility] Prescribed Technique VMAT [facility] Prescribed Total Dose 4256 cGray [facility] Prescription Pattern Comment CBCT daily match CW, neck [facility] Start Date 10/27/2024 [facility] Treatment Site [facility] [place] No Panel Informationon 11-08 Actual Fractions Delivered 9 [facility] Actual Session Delivered Dose 266 cGray [facility] Actual Total Dose 2394 cGray [facility] Course Number 1 [facility] Elapsed Days 12 [facility] Last Date 11/08/2024 [facility] Prescribed Fractional Dose 266 cGray [facility] Prescribed Number of Fractions 16 [facility] Prescribed Technique VMAT [facility] Prescribed Total Dose 4256 cGray [facility] Prescription Pattern Comment CBCT daily match CW, neck [facility] Start Date 10/27/2024 [facility] Treatment Site [facility] [place] No Panel Informationon 11-07 Actual Fractions Delivered 8 [facility] Actual Session Delivered Dose 266 cGray [facility] Actual Total Dose 2128 cGray [facility] Course Number 1 [facility] Elapsed Days 11 [facility] Last Date 11/07/2024 [facility] Prescribed Fractional Dose 266 cGray [facility] Prescribed Number of Fractions 16 [facility] Prescribed Technique VMAT [facility] Prescribed Total Dose 4256 cGray [facility] Prescription Pattern Comment CBCT daily match CW, neck [facility] Start Date 10/27/2024 [facility] [place] Panel Informationon 11-04 Actual Fractions Delivered 7 [facility] Actual Session Delivered Dose 266 cGray [facility] Actual Total Dose 1862 cGray [facility] Course Number 1 [facility] Elapsed Days 8 [facility] Last Date 11/04/2024 [facility] Prescribed Fractional Dose 266 cGray [facility] Prescribed Number of Fractions 16 [facility] Prescribed Technique VMAT [facility] Prescribed Total Dose 4256 cGray [facility] Prescription Pattern Comment CBCT daily match CW, neck [facility] Start Date 10/27/2024 [facility] [place] [facility] [place] No Panel Informationon 11-03 Actual Fractions Delivered 6 [facility] Actual Session Delivered Dose 266 cGray [facility] Actual Total Dose 1596 cGray [facility] Course Number 1 [facility] Elapsed Days 7 [facility] Last Date 11/03/2024 [facility] Prescribed Fractional Dose 266 cGray [facility] Prescribed Number of Fractions 16 [facility] Prescribed Technique VMAT [facility] Prescribed Total Dose 4256 cGray [facility] Prescription Pattern Comment CBCT daily match CW, neck [facility] Start Date 10/27/2024 [facility] [place] Panel Informationon 11-02 Actual Fractions Delivered 5 [facility] Actual Session Delivered Dose 266 cGray [facility] Actual Total Dose 1330 cGray [facility] Course Number 1 [facility] Elapsed Days 6 [facility] Last Date 11/02/2024 [facility] Prescribed Fractional Dose 266 cGray [facility] Prescribed Number of Fractions 16 [facility] Prescribed Technique VMAT [facility] Prescribed Total Dose 4256 cGray [facility] Prescription Pattern Comment CBCT daily match CW, neck [facility] Start Date 10/27/2024 [facility] Treatment [facility] No Panel Informationon 11-01 Actual Fractions Delivered 4 [facility] Actual Session Delivered Dose 266 cGray [facility] Actual Total Dose 1064 cGray [facility] Course Number 1 [facility] Elapsed Days 5 [facility] Last Date 11/01/2024 [facility] Prescribed Fractional Dose 266 cGray [facility] Prescribed Number of Fractions 16 [facility] Prescribed Technique VMAT [facility] Prescribed Total Dose 4256 cGray [facility] Prescription Pattern Comment CBCT daily match CW, neck [facility] Start Date 10/27/2024 [facility] Treatment Site L_Breasts [facility] CBC W Auto Differential pane l (Bld)on 10-31-2024 Basophils (Bld) [#/Vol] 0.06 x10*3/uL Normal 0.00-0.10 [facility] Comment on above: Performed By: #### 1 9123-9 #### ROBBY CARPENTER ([id number]) [facility] ([facility]) [address] [place] [address] Basophils/100 WBC (Bld) 0.8 % Normal 0.0-2.0 [facility] Comment on above: Performed By: #### 1 9123-9 #### ROBBY CARPENTER ([id number]) [facility] ([facility]) [address] [place] [address] Eosinophils (Bld) [#/Vol] 0.43 x10*3/uL High 0.00-0.40 [facility] Comment on above: Performed By: #### 1 9123-9 #### ROBBY CARPENTER ([id number]) [facility] ([facility]) [address] [place] [address] Eosinophils/100 WBC (Bld) 5.7 % Normal 0.0-6.0 [facility] Comment on above: Performed By: #### 1 9123-9 #### ROBBY CARPENTER ([id number]) [facility] ([facility]) [address] [place] [address] Erythrocyte distribution width (RBC) [Ratio] 12.0 % Normal 11.5-14.5 [facility] Comment on above: Performed By: #### 1 9123-9 #### ROBBY CARPENTER ([id number]) [facility] ([facility]) [address] [place] [address] Hematocrit (Bld) [Volume fraction] 37.8 % Normal 36.0-46.0 [facility] Comment on above: Performed By: #### 1 9123-9 #### ROBBY CARPENTER ([id number]) [facility] ([facility]) [address] [place] [address] Hemoglobin (Bld) [Mass/Vol] 12.7 g/dL Normal 12.0-16.0 [facility] Comment on above: Performed By: #### 1 9123-9 #### ROBBY CARPENTER ([id number]) [facility] ([facility]) [address] [place] [id number] Immature granulocytes (Bld) [#/Vol] 0.01 x10*3/uL Normal 0.00-0.50 [facility] Comment on above: Performed By: #### 1 9123-9 #### ROBBY CARPENTER ([id number]) [facility] ([facility]) [address] [place] [id number] Immature granulocytes/100 WBC (Bld) 0.1 % Normal 0.0-0.9 [facility] Comment on above: Result Comment: Jeannie ture Granulocyte Count (IG) includes promyelocytes, myelocytes and metamyelocytes but does not include bands. Percent differential counts (%) should be interpreted in the context of the absolute cell counts (cells/UL). Performed By: #### 1 9123-9 #### ROBBY CARPENTER ([id number]) [facility] ([facility]) [address] [place] [address] Lymphocytes (Bld) [#/Vol] 1.69 x10*3/uL Normal 0.80-3.00 [facility] Comment on above: Performed By: #### 1 9123-9 #### ROBBY CARPENTER ([id number]) [facility] ([facility]) [address] [place] [address] Lymphocytes/100 WBC (Bld) 22.6 % Normal 13.0-44.0 [facility] Comment on above: Performed By: #### 1 9123-9 #### ROBBY CARPENTER ([id number]) [facility] ([facility]) [address] [place] [address] MCH (RBC) [Entitic mass] 31.5 pg Normal 26.0-34.0 [facility] Comment on above: Performed By: #### 1 9123-9 #### ROBBY CARPENTER ([id number]) [facility] ([facility]) [address] [place] [address] MCHC (RBC) [Mass/Vol] 33.6 g/dL Normal 32.0-36.0 [facility] Comment on above: Performed By: #### 1 9123-9 #### ROBBY CARPENTER ([id number]) [facility] ([facility]) [address] [place] [address] MCV (RBC) [Entitic vol] 94 fL Normal 80-100 [facility] Comment on above: Performed By: #### 1 9123-9 #### ROBBY CARPENTER ([id number]) [facility] ([facility]) [address] [place] [address] Monocytes (Bld) [#/Vol] 0.36 x10*3/uL Normal 0.05-0.80 [facility] Comment on above: Performed By: #### 1 9123-9 #### ROBBY CARPENTER ([id number]) [facility] ([facility]) [address] [place] [id number] Monocytes/100 WBC (Bld) 4.8 % Normal 2.0-10.0 [facility] Comment on above: Performed By: #### 1 9123-9 #### ROBBY CARPENTER ([id number]) [facility] ([facility]) [address] [place] [address] Neutrophils (Bld) [#/Vol] 4.94 x10*3/uL Normal 1.60-5.50 [facility] Comment on above: Result Comment: Perc ent differential counts (%) should be interpreted in the context of the absolute cell counts (cells/uL). Performed By: #### 1 9123-9 #### ROBBY CARPENTER ([id number]) [facility] ([facility]) [address] [place] [id number] Neutrophils/100 WBC (Bld) 66.0 % Normal 40.0-80.0 [facility] Comment on above: Performed By: #### 1 9123-9 #### ROBBY CARPENTER ([id number]) [facility] ([facility]) [address] [place] [address] Nucleated RBC/100 WBC (Bld) [Ratio] Normal [facility] Comment on above: Result Comment: Not Measured Performed By: #### 1 9123-9 #### ROBBY CARPENTER ([id number]) [facility] ([facility]) [address] [place] [address] Platelets (Bld) [#/Vol] 174 x10*3/uL Normal 150-450 [facility] Comment on above: Performed By: #### 1 9123-9 #### ROBBY CARPENTER ([id number]) [facility] ([facility]) [address] [place] [address] RBC (Bld) [#/Vol] 4.03 x10*6/uL Normal 4.00-5.20 [facility] Comment on above: Performed By: #### 1 9123-9 #### ROBBY CARPENTER ([id number]) [facility] ([facility]) [address] [place] [address] WBC (Bld) [#/Vol] 7.5 x10*3/uL Normal 4.4-11.3 [facility] Comment on above: Performed By: #### 1 9123-9 #### ROBBY CARPENTER ([id number]) [facility] ([facility]) [address] [place] [address] No Panel Informationon 10-31 Actual Fractions Delivered 3 [facility] Actual Session Delivered Dose 266 cGray [facility] Actual Total Dose 798 cGray [facility] Course Number 1 [facility] Elapsed Days 4 [facility] Last Date 10/31/2024 [facility] Prescribed Fractional Dose 266 cGray [facility] Prescribed Number of Fractions 16 [facility] Prescribed Technique VMAT [facility] Prescribed Total Dose 4256 cGray [facility] Prescription Pattern Comment CBCT daily match , [facility] Start Date 10/27/2024 [facility] Treatment [facility] [place] [facility] [place] No Panel Informationon 10-28 Actual Fractions Delivered 2 [facility] Actual Session Delivered Dose 266 cGray [facility] Actual Total Dose 532 cGray [facility] Course Number 1 [facility] Elapsed Days 1 [facility] Last Date 10/28/2024 [facility] Prescribed Fractional Dose 266 cGray [facility] Prescribed Number of Fractions 16 [facility] Prescribed Technique VMAT [facility] Prescribed Total Dose 4256 cGray [facility] Prescription Pattern Comment CBCT daily match [facility] Start Date 10/27/2024 [facility] Treatment Site L_BreastLNs [facility] No Panel Informationon 10-27 Actual Fractions Delivered 1 [facility] Actual Session Delivered Dose 266 cGray [facility] Actual Total Dose 266 cGray [facility] Course Number 1 [facility] Elapsed Days 0 [facility] Last Date 10/27/2024 [facility] Prescribed Fractional Dose 266 cGray [facility] Prescribed Number of Fractions 16 [facility] Prescribed Technique VMAT [facility] Prescribed Total Dose 4256 cGray [facility] Prescription Pattern Comment CBCT daily match [facility] Start Date 10/27/2024 [facility] Treatment Site L_BreastLNs [facility] DEXA BONE DENSITYon 10-14-19 DEXA BONE DENSITY Interpreted By: Kina Hu, STUDY: DEXA BONE DENSITY10/14/2024 3:10 pm INDICATION: Signs/Symptoms:post-me nopausal. The patient is a 74 y/o year old F. COMPARISON: None. ACCESSION NUMBER(S): [id number] ORDERING CLINICIAN: DIMA CAGE TECHNIQUE: DEXA BONE DENSITY FINDINGS: SPINE L1-L4 Bone Mineral Density: 1.169 T-Score -0.1 Z-Score 1.6 Classification: Not reported Bone Mineral Density change vs baseline: Not reported Bone Mineral Density change vs previous: Not reported LEFT FEMUR -TOTAL Bone Mineral Density: 0.806 T-Score -1.6 Z-Score 0.0 Classification: Not reported Bone Mineral Density change vs baseline: Not reported Bone Mineral Density change vs previous: Not reported LEFT FEMUR -NECK Bone Mineral Density: 0.718 T-Score -2.3 Z-Score -0.5 Classification: Not reported World Health Organization (WHO) criteria for post-menopausal, Women: Normal: T-score at or above -1 SD Osteopenia: T-score between -1 and -2.5 SD Osteoporosis: T-score at or below -2.5 SD 10-year Fracture Risk: Major Osteoporotic Fracture 14.3 Hip Fracture 3.9 Note: If no FRAX score is reported, it is because: Some T-score for Spine Total or Hip Total or Femoral Neck at or below -2.5 IMPRESSION: DEXA: According to World Health Organization criteria, classification is low bone mass (osteopenia) Followup recommended in two years or sooner as clinically warranted. All images and detailed analysis are available on the Radiology PACS. MACRO: None Signed by: Kina Hu 10/14/2024 5:30 PM Dictation workstation: [id number] [facility] RAD ONC CT SIMULATION WITH S CHEDULINGon 10-10-[address] SIMULATION WITH SCHEDULING These images are not reportable by radiology and will not be interpreted by Radiologists. [facility] Rad Onc CT Simulation w/ Anjel edulingon 10-10-2024 These images are not reportable by radiology and will not be interpreted by Radiologists. IMAGING CBC W Auto Differential pane l (Bld)on 10-03-2024 Basophils (Bld) [#/Vol] 0.07 x10*3/uL Normal 0.00-0.10 [facility] Comment on above: Performed By: #### 5 7021-8 #### LAZARO Wolf ([id number]) [facility] ([facility]) [address] [place] [address] Basophils/100 WBC (Bld) 0.9 % Normal 0.0-2.0 [facility] Comment on above: Performed By: #### 5 7021-8 #### LAZARO Wolf ([id number]) [facility] ([facility]) [address] [place] [address] Eosinophils (Bld) [#/Vol] 0.41 x10*3/uL High 0.00-0.40 [facility] Comment on above: Performed By: #### 70-8 #### LAZARO Wolf ([id number]) [facility] ([facility]) [address] [place], [place] [address] Eosinophils/100 WBC (Bld) 5.4 % Normal 0.0-6.0 [facility] Comment on above: Performed By: #### 5 7021-8 #### LAZARO Wolf ([id number]) [facility] ([facility]) [address] [place] [address] Erythrocyte distribution width (RBC) [Ratio] 12.1 % Normal 11.5-14.5 [facility] Comment on above: Performed By: #### 5 7021-8 #### LAZARO Wolf ([id number]) [facility] ([facility]) [address] [place] [address] Hematocrit (Bld) [Volume fraction] 37.8 % Normal 36.0-46.0 [facility] Comment on above: Performed By: #### 5 7021-8 #### LAZARO Wolf ([id number]) [facility] ([facility]) [address] [place] [address] Hemoglobin (Bld) [Mass/Vol] 12.7 g/dL Normal 12.0-16.0 [facility] Comment on above: Performed By: #### 7021-8 #### LAZARO Wolf ([id number]) [facility] ([facility]) [address] [place] [address] Immature granulocytes (Bld) [#/Vol] 0.01 x10*3/uL Normal 0.00-0.50 [facility] Comment on above: Performed By: #### 7021-8 #### LAZARO Wolf ([id number]) [facility] ([facility]) [address] [place] [address] Immature granulocytes/100 WBC (Bld) 0.1 % Normal 0.0-0.9 [facility] Comment on above: Result Comment: Jeannie ture Granulocyte Count (IG) includes promyelocytes, myelocytes and metamyelocytes but does not include bands. Percent differential counts (%) should be interpreted in the context of the absolute cell counts (cells/UL). Performed By: #### 5 7021-8 #### LAZARO Wolf ([id number]) [facility] ([facility]) [address] [place] [address] Lymphocytes (Bld) [#/Vol] 1.55 x10*3/uL Normal 0.80-3.00 [facility] Comment on above: Performed By: #### 5 7021-8 #### LAZARO Wolf ([id number]) [facility] ([facility]) [address] [place] [address] Lymphocytes/100 WBC (Bld) 20.5 % Normal 13.0-44.0 [facility] Comment on above: Performed By: #### 5 7021-8 #### LAZARO Wolf ([id number]) [facility] ([facility]) [address] [place] [address] MCH (RBC) [Entitic mass] 32.7 pg Normal 26.0-34.0 [facility] Comment on above: Performed By: #### 5 7021-8 #### LAZARO Wolf ([id number]) [facility] ([facility]) [address] [place] [address] MCHC (RBC) [Mass/Vol] 33.6 g/dL Normal 32.0-36.0 [facility] Comment on above: Performed By: #### 5 7021-8 #### LAZARO Wolf ([id number]) [facility] ([facility]) [address] [place] [address] MCV (RBC) [Entitic vol] 97 fL Normal 80-100 [facility] Comment on above: Performed By: #### 5 7021-8 #### LAZARO Wolf ([id number]) [facility] ([facility]) [address] [place] [address] Monocytes (Bld) [#/Vol] 0.47 x10*3/uL Normal 0.05-0.80 [facility] Comment on above: Performed By: #### 5 7021-8 #### LAZARO Wolf ([id number]) [facility] ([facility]) [address] [place] [address] Monocytes/100 WBC (Bld) 6.2 % Normal 2.0-10.0 [facility] Comment on above: Performed By: #### 5 7021-8 #### LAZARO Wolf ([id number]) [facility] ([facility]) [address] [place] [address] Neutrophils (Bld) [#/Vol] 5.06 x10*3/uL Normal 1.60-5.50 [facility] Comment on above: Result Comment: Perc ent differential counts (%) should be interpreted in the context of the absolute cell counts (cells/uL). Performed By: #### 5 7021-8 #### LAZARO Wolf ([id number]) [facility] ([facility]) [address] [place] [address] Neutrophils/100 WBC (Bld) 66.9 % Normal 40.0-80.0 [facility] Comment on above: Performed By: #### 5 7021-8 #### LAZARO Wolf ([id number]) [facility] ([facility]) [address] [place] [address] Nucleated RBC/100 WBC (Bld) [Ratio] Normal [facility] Comment on above: Result Comment: Not Measured Performed By: #### 5 7021-8 #### LAZARO Wolf ([id number]) [facility] ([facility]) [address] [place] [address] Platelets (Bld) [#/Vol] 173 x10*3/uL Normal 150-450 [facility] Comment on above: Performed By: #### 5 7021-8 #### LAZARO Wolf ([id number]) [facility] ([facility]) [address] [place] [address] RBC (Bld) [#/Vol] 3.88 x10*6/uL Low 4.00-5.20 [facility] Comment on above: Performed By: #### 5 7021-8 #### LAZARO Wolf ([id number]) [facility] ([facility]) [address] [place] [address] WBC (Bld) [#/Vol] 7.6 x10*3/uL Normal 4.4-11.3 [facility] Comment on above: Performed By: #### 5 7021-8 #### LAZARO Wolf ([id number]) [facility] ([facility]) [address] [place] [address] Comprehensive metabolic 2000 panelon 10-03-2024 Albumin BCP dye [Mass/Vol] 4.2 g/dL Normal 3.4-5.0 [facility] Comment on above: Performed By: #### 1 9123-9 #### ROBBY CARPENTER ([id number]) [facility] ([facility]) [address] [place] [address] ALP [Catalytic activity/Vol] 94 U/L Normal 33-136 [facility] Comment on above: Performed By: #### 1 9123-9 #### ROBBY CARPENTER ([id number]) [facility] ([facility]) [address] [id number] ALT With P-5'-P [Catalytic activity/Vol] 13 U/L Normal 7-45 [facility] Comment on above: Result Comment: Amber ents treated with Sulfasalazine may generate falsely decreased results for ALT. Performed By: #### 1 9123-9 #### ROBBY CARPENTER ([id number]) [facility] ([facility]) [address] [place] [address] Anion gap [Moles/Vol] 15 mmol/L Normal 10-20 [facility] Comment on above: Performed By: #### 1 9123-9 #### ROBBY CARPENTER ([id number]) [facility] ([facility]) [address] [place] [address] AST With P-5'-P [Catalytic activity/Vol] 18 U/L Normal 9-39 [facility] Comment on above: Performed By: #### 1 9123-9 #### ROBBY CARPENTER ([id number]) [facility] ([facility]) [address] [place] [address] Bilirubin [Mass/Vol] 0.6 mg/dL Normal 0.0-1.2 [facility] Comment on above: Performed By: #### 1 9123-9 #### ROBBY CARPENTER ([id number]) [facility] ([facility]) [address] [place] [address] Calcium [Mass/Vol] 10.0 mg/dL Normal 8.6-10.6 [facility] Comment on above: Performed By: #### 1 9123-9 #### ROBBY CARPENTER ([id number]) [facility] ([facility]) [address] [place] [address] Chloride [Moles/Vol] 104 mmol/L Normal 98-107 [facility] Comment on above: Performed By: #### 1 9123-9 #### ROBBY CARPENTER ([id number]) [facility] ([facility]) [address] [place] [address] CO2 [Moles/Vol] 27 mmol/L Normal 21-32 [facility] Comment on above: Performed By: #### 1 9123-9 #### ROBBY CARPENTER ([id number]) [facility] ([facility]) [address] [place] [address] Creatinine [Mass/Vol] 0.87 mg/dL Normal 0.50-1.05 [facility] Comment on above: Performed By: #### 1 9123-9 #### ROBBY CARPENTER ([id number]) [facility] ([facility]) [address] [place] [address] Glomerular filtration rate/1.73 sq M.predicted 70 mL/min/1.73m*2 Normal >60 [facility] Comment on above: Result Comment: Calc ulations of estimated GFR are performed using the 2020 CKD-EPI Study Refit equation without the race variable for the IDMS-Traceable creatinine methods. https://jasn.asnjournals.org/content/early/ASN.64477 90587 Performed By: #### 1 9123-9 #### ROBBY CARPENTER ([id number]) [facility] ([facility]) [address] [place] [address] Glucose [Mass/Vol] 112 mg/dL High 74-99 [facility] Comment on above: Performed By: #### 1 9123-9 #### ROBBY CARPENTER ([id number]) [facility] ([facility]) [address] [place] [address] Potassium [Moles/Vol] 4.1 mmol/L Normal 3.5-5.3 [facility] Comment on above: Performed By: #### 1 9123-9 #### ROBBY CARPENTER ([id number]) [facility] ([facility]) [address] [place] [address] Protein [Mass/Vol] 6.6 g/dL Normal 6.4-8.2 [facility] Comment on above: Performed By: #### 1 9123-9 #### ROBBY CARPENTER ([id number]) [facility] ([facility]) [address] [place] [address] Sodium [Moles/Vol] 142 mmol/L Normal 136-145 [facility] Comment on above: Performed By: #### 1 9123-9 #### ROBBY CARPENTER ([id number]) [facility] ([facility]) [address] [place] [address] Urea nitrogen [Mass/Vol] 24 mg/dL High 6-23 [facility] Comment on above: Performed By: #### 1 9123-9 #### ROBBY CARPENTER ([id number]) [facility] ([facility]) [address] [place] [address] Magnesiumon 10-03-2024 Magnesium [Mass/Vol] 1.91 mg/dL Normal 1.60-2.40 [facility] Comment on above: Performed By: #### 1 [id number] #### ROBBY CARPENTER ([id number]) [facility] ([facility]) [address] [place] [id number] Urine Cultureon 09-30-2024 [facility]RC Escherichia coli [place] Count >100,000 Escherichia coli: REACTION Ampicillin Islt LON 4 Ampicillin+Sulbac Islt LON <=2 S Cefepime Islt LON <=0.12 S cefTRIAXone Islt LON <=0.25 S Ciprofloxacin Islt LON <=0.06 S B-Lactamase Extended Susc Islt NEG Gentamicin Islt LON <=1 S levoFLOXacin Islt LON <=0.12 S Meropenem Islt LON <=0.25 S Nitrofurantoin Islt LON <=16 S Pip+Tazo Islt LON <=4 S TMP SMX Islt LON <=20 S Normal [facility] Comment on above: Performed By: #### M [id number] #### [facility] [address], [place], [id number] Laboratory - Chemistry and C hemistry - challengeon 09-28-2024 Bilirubin Ql (U) Negative [facility] Glucose Ql (U) 500 g/dL [facility] Ketones Ql (U) Negative [facility] pH (U) 7.0 [pH] [facility] Urobilinogen (U) [Mass/Vol] 0.5949849 mg/dL [facility] Laboratory - Hematology and Cell countson 09-28-2024 Hemoglobin Ql (U) Negative [facility] Laboratory - Specimen inform ationon 09-28-2024 Clarity (U) Clear [facility] Color (U) YELLOW [facility] Laboratory - Urinalysison Nitrite Ql (U) Positive [facility] Protein Ql (U) Negative [facility] No Panel Informationon 09-28 Urine Leukocytes Negatve [facility] Urine cultureOrdered By: Robin Calzada on 09-28-2024 Bacteria identified Cx Nom (U) Escherichia coli Abnormal [facility] BI RAD BREAST EXAM SPECIMENo n 08-24-2024 BI RAD BREAST EXAM SPECIMEN Interpreted By: Honey Rene, STUDY: BI RAD BREAST EXAM SPECIMEN; 08/24/2024 8:52 am ACCESSION NUMBER(S): [id number] ORDERING CLINICIAN: JOSIE CARPENTER INDICATION: Left Breast Magseed localization. ,R92.8 Other abnormal and inconclusive findings on diagnostic imaging of breast FINDINGS: The specimen radiograph of the left breast tissue demonstrates the masses of concern, associated biopsy marker x2 and the Magseed x2 in the tissues. IMPRESSION: Status post surgical excision of Left breast Magseed localization. MACRO: None Signed by: Honey Rene 08/24/2024 8:58 AM Dictation workstation: [id number] [facility] BI RAD BREAST EXAM SPECIMEN Interpreted By: Honey Rene, STUDY: BI RAD BREAST EXAM SPECIMEN; 08/24/2024 8:52 am ACCESSION NUMBER(S): [id number] ORDERING CLINICIAN: JOSIE CARPENTER INDICATION: Left axillary Magseed localization. 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 IMPRESSION: Status post surgical excision of Left axillary Magseed localization. MACRO: None Signed by: Honey Rene 08/24/2024 8:59 AM Dictation workstation: [id number] [facility] FLOW CYTOMETRY TEST (PERFORM ABLE)- LAB ONLYon 08-24-2024 CELL COUNT (BLOOD) 1.00 x10*3/uL Normal not established [facility] Comment on above: Performed By: #### F LWCYTO #### CHELSI Redmond ([id number]) [facility] ([facility]) [address] [place], [place] [id number] CELL POPULATIONS Normal [facility] Comment on above: Performed By: #### F LWCYTO #### CHELSI Redmond ([id number]) [facility] ([facility]) [address] [place], [place] [id number] DIAGNOSIS SEE COMMENT Normal [facility] Comment on above: Result Comment: LYMP H NODE, AXILLARY, FLOW CYTOMETRY: No definitive immunophenotypic evidence of non-Hodgkin lymphoma. Note: correlate with separate surgical pathology report. Performed By: #### F LWCYTO #### CHELSI Redmond ([id number]) [facility] ([facility]) [address] [place] [address] FLOW DIFFERENTIAL SEE COMMENT Normal [facility] Comment on above: Result Comment: Lymp hocyte: 52 % CD3+CD4+: 40 % ; Polyclonal (TRBC1) CD3+CD8+: 8 % ; Polyclonal (TRBC1) Natural Killer Cells: 2 % CD19+: 50 % B Cell Light Chain Expression: Polyclonal Surface [place]/Surface Lambda: 48%/35% Monocyte: 3 % Granulocyte: 14 % Performed By: #### F LWCYTO #### CHELSI Redmond ([id number]) [facility] ([facility]) [address] [place] [address] FLOW TEST ORDERED Lymphoma Panel Normal not established [facility] Comment on above: Performed By: #### F LWCYTO #### CHELSI Redmond ([id number]) [facility] ([facility]) [address] [place] [address] Lab test method Nom (Spec) SEE COMMENT Normal [facility] Comment on above: Result Comment: Refe rence ranges not established. This test is a multicolor, whole blood lysis assay. It was developed and its performance characteristics determined by the Department of Pathology, [facility], and has not been cleared or approved by the U.S. Food and Drug Administration. The laboratory is regulated under CLIA as qualified to perform high complexity testing. This test is used for clinical purposes. It should not be regarded as investigational or for research. Immunophenotypic analysis was performed using the following antibodies: 1A: CD45. 1B: CD71, CD30, CD40, CD95, CD14, CD45. 1C: CD56, CD7, CD4, CD8, CD3, CD45. 1D: CD2, CD26, CD4, CD5, CD3, CD45. 1E: CD43, CD23, CD20, CD5, CD19, CD45. 1F: CD11c, CD180, CD1c, CD79b, CD19, CD45. 1G: TRBC1, TCR Gamma/Delta, CD4, CD8, CD3, CD45. 1H: [place] Surface, Lambda Surface, CD38, CD10, CD19, CD45. Performed By: #### F LWCYTO #### CHELSI Redmond ([id number]) [facility] ([facility]) [address] [place] [address] NUMBER OF CELLS COLLECTED [facility] Comment on above: Result Comment: [phone] Performed By: #### F LWCYTO #### CHELSI Redmond ([id number]) [facility] ([place] [address] Pathology report Cancer Narrative SEE COMMENT [facility] Comment on above: Result Comment: Flow Cytometry Case: [id number] Authorizing Provider: Thierno Erazo MD Collected: 08/24/2024 0800 Ordering Location: [facility] OR Received: 08/25/2024 1704 Pathologist: Chin Villa MD Specimen: LYMPH NODE BIOPSY, axillary Sentinal Lymph Nodes Performed By: #### F LWCYTO #### CHELSI Redmond ([id number]) [facility] ([facility]) [address] [place] [address] SIGNATURE COMMENT By the signature on this report, the individual or group listed as making the Final Interpretation/Diagnos is certifies that they have reviewed this case and the staining reactivity of the antibodies and reagents in the analysis were determined to be acceptable. Diagnostic interpretation performed at [facility] Comment on above: Performed By: #### F LWCYTO #### CHELSI Redmond ([id number]) [facility] ([facility]) [address] [place] [address] SPECIMEN VIABILITY High Normal not established [facility] Comment on above: Performed By: #### F LWCYTO #### CHELSI Redmond ([id number]) [facility] ([facility]) [address] [place] [address] Glucose Test strip manual (B ld) [Mass/Vol]on 08-24-2024 Glucose [Mass/Vol] 118 mg/dL High 74 - 99 mg/dL [facility] Interpretation and review of laboratory results Abnormal [facility] Glucose [Mass/Vol] 118 mg/dL High 74-99 [facility] Comment on above: Performed By: #### 2 [id number] #### ROBBY CARPENTER ([id number]) [facility] ([facility]) [address] [place] [address] Glucose [Mass/Vol] 118 mg/dL High 74 - 99 mg/dL [facility] Interpretation and review of laboratory results Abnormal [facility] Glucose [Mass/Vol] 118 mg/dL High 74-99 [facility] Comment on above: Performed By: #### 2 [id number] #### ROBBY CARPENTER ([id number]) [facility] ([facility]) [address] [place] [address] MG Breast specimen Viewson 1 10-25-2023 Status post surgical excision of Left axillary Magseed localization. MACRO: None Signed by: Honey Rene 08/24/2024 8:59 AM Dictation workstation: [id number] [facility] Interpreted By: Honey Rene, STUDY: BI RAD BREAST EXAM SPECIMEN; 08/24/2024 8:52 am ACCESSION NUMBER(S): [id number] ORDERING CLINICIAN: JOSIE CARPENTER INDICATION: Left axillary Magseed localization. 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 MMODAL Honey Rene MD - 08/24/2024 Interpreted By: Honey Rene, STUDY: BI RAD BREAST EXAM SPECIMEN; 08/24/2024 8:52 am ACCESSION NUMBER(S): [id number] ORDERING CLINICIAN: JOSIE CARPENTER INDICATION: Left axillary Magseed localization. 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 IMPRESSION: Status post surgical excision of Left axillary Magseed localization. MACRO: None Signed by: Honey Rene 08/24/2024 8:59 AM Dictation workstation: [id number] [facility] Work Phone: Status post surgical excision of Left breast Magseed localization. MACRO: None Signed by: Honey Rene 08/24/2024 8:58 AM Dictation workstation: [id number] [facility]AL Interpreted By: Honey Rene, STUDY: BI RAD BREAST EXAM SPECIMEN; 08/24/2024 8:52 am ACCESSION NUMBER(S): [id number] ORDERING CLINICIAN: JOSIE CARPENTER INDICATION: Left Breast Magseed localization. ,R92.8 Other abnormal and inconclusive findings on diagnostic imaging of breast FINDINGS: The specimen radiograph of the left breast tissue demonstrates the masses of concern, associated biopsy marker x2 and the Magseed x2 in the tissues. [facility] MMODAL Honey Rene MD - 08/24/2024 Interpreted By: Honey Rene, STUDY: BI RAD BREAST EXAM SPECIMEN; 08/24/2024 8:52 am ACCESSION NUMBER(S): [id number] ORDERING CLINICIAN: JOSIE CARPENTER INDICATION: Left Breast Magseed localization. ,R92.8 Other abnormal and inconclusive findings on diagnostic imaging of breast FINDINGS: The specimen radiograph of the left breast tissue demonstrates the masses of concern, associated biopsy marker x2 and the Magseed x2 in the tissues. IMPRESSION: Status post surgical excision of Left breast Magseed localization. MACRO: None Signed by: Honey Rene 08/24/2024 8:58 AM Dictation workstation: [id number] [facility] Work Phone: Radiology Study observation (narrative) [facility] Work Phone: Radiology Study observation (narrative) [facility] Work Phone: MG Breast specimen ViewsOrde red By: Honey Rene on 08-24-2024 [facility] Work Phone: [facility] Work Phone: NM INJECTION ONLY FOR SENTIN EL NODE BIOPSY NO SCAN PERFORMEDon 08-24-2024 NM INJECTION ONLY FOR SENTINEL NODE BIOPSY NO SCAN PERFORMED Interpreted By: Jameel Green and Hanreck James STUDY: NM INJECTION ONLY FOR SENTINEL NODE BIOPSY NO SCAN PERFORMED; 08/24/2024 7:50 am INDICATION: Signs/Symptoms:left sln inj. 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 ACCESSION NUMBER(S): [id number] ORDERING CLINICIAN: JOSIE CARPENTER TECHNIQUE: DIVISION OF NUCLEAR MEDICINE BREAST SENTINEL NODE LOCALIZATION Syringes containing a total of 1.0 millicuries of Tc-99m tilmanocept (Lymphoseek) were provided for injection and sentinel lymph node localization at lymph node dissection/biopsy. No images were obtained. FINDINGS: No images were obtained. IMPRESSION: Patient with breast carcinoma undergoing peritumoral Tc-99m tilmanocept (Lymphoseek) injection for intraoperative sentinel lymph node localization. I personally reviewed the images/study and I agree with the resident Chio Babcock's findings as stated. This study was interpreted at [place], [place]. MACRO: None Signed by: Jameel Green 08/24/2024 9:57 AM Dictation workstation: [id number] [facility] NM injection only for sentin el node biopsy no scan performedon 08-24-2024 Patient with breast carcinoma undergoing peritumoral Tc-99m tilmanocept (Lymphoseek) injection for intraoperative sentinel lymph node localization. I personally reviewed the images/study and I agree with the resident Chio Babcock's findings as stated. This study was interpreted at [place], [place]. MACRO: None Signed by: Jameel Green 08/24/2024 9:57 AM Dictation workstation: [id number] MMODAL Interpreted By: Jameel Hughes and Hanreck James STUDY: NM INJECTION ONLY FOR SENTINEL NODE BIOPSY NO SCAN PERFORMED; 08/24/2024 7:50 am INDICATION: Signs/Symptoms:left sln inj. 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 ACCESSION NUMBER(S): [id number] ORDERING CLINICIAN: JOSIE CARPENTER TECHNIQUE: DIVISION OF NUCLEAR MEDICINE BREAST SENTINEL NODE LOCALIZATION Syringes containing a total of 1.0 millicuries of Tc-99m tilmanocept (Lymphoseek) were provided for injection and sentinel lymph node localization at lymph node dissection/biopsy. No images were obtained. FINDINGS: No images were obtained. MMODAL Jameel Green MD - 08/24/2024 Interpreted By: Jameel Green and Hanreck James STUDY: NM INJECTION ONLY FOR SENTINEL NODE BIOPSY NO SCAN PERFORMED; 08/24/2024 7:50 am INDICATION: Signs/Symptoms:left sln inj. 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 ACCESSION NUMBER(S): [id number] ORDERING CLINICIAN: JOSIE CARPENTER TECHNIQUE: DIVISION OF NUCLEAR MEDICINE BREAST SENTINEL NODE LOCALIZATION Syringes containing a total of 1.0 millicuries of Tc-99m tilmanocept (Lymphoseek) were provided for injection and sentinel lymph node localization at lymph node dissection/biopsy. No images were obtained. FINDINGS: No images were obtained. IMPRESSION: Patient with breast carcinoma undergoing peritumoral Tc-99m tilmanocept (Lymphoseek) injection for intraoperative sentinel lymph node localization. I personally reviewed the images/study and I agree with the resident Chio Babcock's findings as stated. This study was interpreted at [place], [place]. MACRO: None Signed by: Jameel Green 08/24/2024 9:57 AM Dictation workstation: [id number] [facility] Work Phone: Radiology Study observation (narrative) [facility] Work Phone: NM injection only for sentin el node biopsy no scan performedOrdered By: Jameel Green on 08-24-2024 [facility] Work Phone: Surgical pathology studyon 1 10-25-2023 Surgical pathology study Pathology report.total SEE COMMENT Surgical Pathology Case: [id number] Authorizing Provider: Josie Carpenter MD Collected: 08/24/2024716 Ordering Location: [facility] OR Received: 08/24/2024817 Pathologist: Carmen Machuca MD Intraop: Thierno Erazo MD Specimens: A) - SENTINEL LYMPH NODE BREAST LEFT, Left Axillary [place] Lymph Node w/ Magseed B) - SENTINEL LYMPH NODE BREAST LEFT, Additional axillary Sentinal Lymph Nodes C) - BREAST LUMPECTOMY LEFT, Left Breast Magseed Localized Partial Mastectomy Bracket D) - BREAST MARGIN LEFT, Left Anterior Breast Margin- Black ink massey new margin E) - BREAST MARGIN LEFT, Left Inferior Breast Margin- Black ink massey new margin F) - BREAST MARGIN LEFT, Left Lateral Breast Margin- Black ink massey new margin G) - BREAST MARGIN LEFT, Left Medial Breast Margin- Black ink massey new margin H) - BREAST MARGIN LEFT, Left Posterior Breast Margin- Black ink massey new margin I) - BREAST MARGIN LEFT, Left Superior Breast Margin- Black ink massey new margin Path report.final diagnosis SEE COMMENT A. LEFT AXILLARY SENTINEL LYMPH NODE WITH MAGSEED, BIOPSY: -- One lymph node negative for metastatic carcinoma (0/1), see note. -- Acellular mucin. -- Treatment related changes. -- Prior biopsy site changes. Note: Sections show lymphoid tissue with abundant mucin pools. No tumor cells are identified. Multiple deeper levels were reviewed. Immunohistochemical stains for cytokeratin AE1/3 are negative. B. ADDITIONAL LEFT AXILLARY SENTINEL LYMPH NODES, BIOPSY: -- Five lymph nodes negative for metastatic carcinoma (0/5), see note. -- Acellular mucin. -- Treatment related changes. Note: Sections show lymphoid tissue with abundant mucin pools. No tumor cells are identified. Multiple deeper levels were reviewed. Immunohistochemical stains for cytokeratin AE1/3 are negative. Treatment related changes are seen in 4 of 5 lymph nodes. C. LEFT BREAST, MAGSEED LOCALIZED PARTIAL MASTECTOMY: -- No residual invasive carcinoma identified, post neoadjuvant therapy. -- Acellular mucin. -- Treatment related changes. -- Prior biopsy site changes. Note: Multiple sections show mucin pools and areas of fibrosis. No tumor cells are identified. Immunohistochemistry for cytokeratin AE1/3 is performed on multiple blocks and is negative. There is a minute focus of ducts with cytologic atypia and no proliferation surrounded by sclerotic stroma, favored to be therapy-related changes. Immunohistochemistry for CKAE1/AE3, CD68, SMMHC, p63, HER2, and ER in the focus support the diagnosis. D. LEFT BREAST, ANTERIOR MARGIN, EXCISION: -- Negative for carcinoma. E. LEFT BREAST, INFERIOR MARGIN, EXCISION: -- Negative for carcinoma. F. LEFT BREAST, LATERAL MARGIN, EXCISION: -- Negative for carcinoma. G. LEFT BREAST, MEDIAL MARGIN, EXCISION: -- Negative for carcinoma. H. LEFT BREAST, POSTERIOR MARGIN, EXCISION: -- Negative for carcinoma. I. LEFT BREAST, SUPERIOR MARGIN, EXCISION: -- Negative for carcinoma. Laboratory comment By the signature on this report, the individual or group listed as making the Final Interpretation/Diagnos is certifies that they have reviewed this case. Path report.comments SEE COMMENT This case was shown at the breast consensus conference via Zoom. Attending: Pilar Rivera, Marty Villalba Synoptic report SEE COMMENT INVASIVE CARCINOMA OF THE BREAST: Resection INVASIVE CARCINOMA OF THE BREAST: RESECTION - All Specimens 8th Edition - Protocol posted: 03/09/2024 SPECIMEN Procedure: Excision (less than total mastectomy) Specimen Laterality: Left TUMOR Tumor Site: Clock position : 11 o'clock Tumor Site: Distance from nipple (Centimeters): 10 cm Histologic Type: No residual invasive carcinoma Tumor Size: No residual invasive carcinoma Tumor Focality: Single focus of invasive carcinoma Ductal Carcinoma In Situ (DCIS): Not identified Lobular Carcinoma In Situ (LCIS): Not identified Lymphatic and / or Vascular Invasion: Not identified Dermal Lymphatic and / or Vascular Invasion: No skin present Microcalcifications: Not identified Treatment Effect in the Breast: No residual invasive carcinoma is present in the breast after presurgical therapy Treatment Effect in the Lymph Nodes: No lymph node metastases. Fibrous scarring or histiocytic aggregates, possibly related to prior lymph node metastases with pathologic complete response MARGINS Margin Status for Invasive Carcinoma: All margins negative for invasive carcinoma Distance from Invasive Carcinoma to Closest Margin: Greater than: 2 mm REGIONAL LYMPH NODES Regional Lymph Node Status: : All regional lymph nodes negative for tumor Total Number of Lymph Nodes Examined (sentinel and non-sentinel): 6 Number of [place] Nodes Examined: 6 pTNM CLASSIFICATION (AJCC 8th Edition) Reporting of pT, pN, and (when tona (more content not included)... [facility] Comment on above: Order Comment: Pre-o p diagnosis: Malignant neoplasm of upper-inner quadrant of left breast in female, estrogen receptor negative [C50.212, Z17.1] BI BREAST BIOPSY CLIP IMAGIN Sudhakar 08-22-2024 BI BREAST BIOPSY CLIP IMAGING Interpreted By: Hansa Shetty, STUDY: BI US GUIDED BREAST LOCALIZATION LEFT; BI BREAST BIOPSY CLIP IMAGING; 08/22/2024 10:39 am; 08/22/2024 11:01 am ACCESSION NUMBER(S): [id number]; [id number] ORDERING CLINICIAN: JOSIE CARPENTER INDICATION: Left breast cancer with metastatic axillary lymph node. FINDINGS: PREPROCEDURAL CONSULTATION: The history and physical exam pertinent to the procedure were reviewed and no updates were made. The procedure was explained to the patient including the risks, benefits, and alternatives. Medications were discussed, including any prior use of blood thinning medications by the patient. Patient allergies were reviewed. The risks, including but not limited to infection and bleeding, were reviewed by the performing physician and the patient agreed to undergo the procedure. Prior to the procedure, an audible timeout was done to verify patient identification, site and type of procedure. Attending radiologist Dr. Hansa Shetty, vice president of operations Dr. Tara Ford, a radiology nurse, and a histology technologist were present. PROCEDURE 1: Scanning of the left breast redemonstrated the biopsy site with associated biopsy tissue marker at 11:00 position. 3 mL of buffered 1% lidocaine was injected subcutaneously and into the deeper tissues using ultrasound guidance. A 7 cm needle containing a Magseed was advanced into the inferomedial aspect of the biopsy site, under ultrasound guidance. When the needle tip was satisfactorily positioned, the Magseed was deployed. Scanning of the breast demonstrated the Magseed satisfactorily positioned in the medial aspect of the biopsy site. PROCEDURE 2: Scanning of the left breast redemonstrated the biopsy site with associated biopsy tissue marker at 12:00 position. 3 mL of buffered 1% lidocaine was injected subcutaneously and into the deeper tissues using ultrasound guidance. A 7 cm needle containing a Magseed was advanced into the superolateral aspect of the biopsy site, under ultrasound guidance. When the needle tip was satisfactorily positioned, the Magseed was deployed. Scanning of the breast demonstrated the Magseed satisfactorily positioned within lateral aspect of the biopsy site. PROCEDURE 2: Scanning of the left axilla redemonstrated the lymph node of concern with associated biopsy tissue marker. 3 mL of buffered 1% lidocaine was injected subcutaneously and into the deeper tissues using ultrasound guidance. A 7 cm needle containing a Magseed was advanced into the node, under ultrasound guidance. When the needle tip was satisfactorily positioned, the Magseed was deployed. Scanning of the axilla demonstrated the Magseed satisfactorily positioned within the node. A mammogram was obtained after placement of the Magseeds. This demonstrates satisfactory location of all 3 Magseeds. The patient tolerated the procedure without difficulty. IMPRESSION: Status post ultrasound-guided bracketing Magseed localization of 2 left breast biopsy sites with tissue markers and Magseed localization of left axillary lymph node with tissue marker. Signed by: Hansa Shetty 08/22/2024 11:11 AM Dictation workstation: [id number] [facility] BI US GUIDED BREAST LOCALIZA TION KIANAon 08-22-2024 BI US GUIDED BREAST LOCALIZATION LEFT Interpreted By: Hansa Shetty, STUDY: BI US GUIDED BREAST LOCALIZATION LEFT; BI BREAST BIOPSY CLIP IMAGING; 08/22/2024 10:39 am; 08/22/2024 11:01 am ACCESSION NUMBER(S): [id number]; [id number] ORDERING CLINICIAN: JOSIE CARPENTER INDICATION: Left breast cancer with metastatic axillary lymph node. FINDINGS: PREPROCEDURAL CONSULTATION: The history and physical exam pertinent to the procedure were reviewed and no updates were made. The procedure was explained to the patient including the risks, benefits, and alternatives. Medications were discussed, including any prior use of blood thinning medications by the patient. Patient allergies were reviewed. The risks, including but not limited to infection and bleeding, were reviewed by the performing physician and the patient agreed to undergo the procedure. Prior to the procedure, an audible timeout was done to verify patient identification, site and type of procedure. Attending radiologist Dr. Hansa Shetty, vice president of operations Dr. Tara Ford, a radiology nurse, and a histology technologist were present. PROCEDURE 1: Scanning of the left breast redemonstrated the biopsy site with associated biopsy tissue marker at 11:00 position. 3 mL of buffered 1% lidocaine was injected subcutaneously and into the deeper tissues using ultrasound guidance. A 7 cm needle containing a Magseed was advanced into the inferomedial aspect of the biopsy site, under ultrasound guidance. When the needle tip was satisfactorily positioned, the Magseed was deployed. Scanning of the breast demonstrated the Magseed satisfactorily positioned in the medial aspect of the biopsy site. PROCEDURE 2: Scanning of the left breast redemonstrated the biopsy site with associated biopsy tissue marker at 12:00 position. 3 mL of buffered 1% lidocaine was injected subcutaneously and into the deeper tissues using ultrasound guidance. A 7 cm needle containing a Magseed was advanced into the superolateral aspect of the biopsy site, under ultrasound guidance. When the needle tip was satisfactorily positioned, the Magseed was deployed. Scanning of the breast demonstrated the Magseed satisfactorily positioned within lateral aspect of the biopsy site. PROCEDURE 2: Scanning of the left axilla redemonstrated the lymph node of concern with associated biopsy tissue marker. 3 mL of buffered 1% lidocaine was injected subcutaneously and into the deeper tissues using ultrasound guidance. A 7 cm needle containing a Magseed was advanced into the node, under ultrasound guidance. When the needle tip was satisfactorily positioned, the Magseed was deployed. Scanning of the axilla demonstrated the Magseed satisfactorily positioned within the node. A mammogram was obtained after placement of the Magseeds. This demonstrates satisfactory location of all 3 Magseeds. The patient tolerated the procedure without difficulty. IMPRESSION: Status post ultrasound-guided bracketing Magseed localization of 2 left breast biopsy sites with tissue markers and Magseed localization of left axillary lymph node with tissue marker. Signed by: Hansa Shetty 08/22/2024 11:11 AM Dictation workstation: [id number] [facility] No Panel Informationon 08-22 Status post ultrasound-guided bracketing Magseed localization of 2 left breast biopsy sites with tissue markers and Magseed localization of left axillary lymph node with tissue marker. Signed by: Hansa Shetty 08/22/2024 11:11 AM Dictation workstation: [id number] [facility] Interpreted By: Hansa Shetty, STUDY: BI US GUIDED BREAST LOCALIZATION LEFT; BI BREAST BIOPSY CLIP IMAGING; 08/22/2024 10:39 am; 08/22/2024 11:01 am ACCESSION NUMBER(S): [id number]; [id number] ORDERING CLINICIAN: JOSIE CARPENTER INDICATION: Left breast cancer with metastatic axillary lymph node. FINDINGS: PREPROCEDURAL CONSULTATION: The history and physical exam pertinent to the procedure were reviewed and no updates were made. The procedure was explained to the patient including the risks, benefits, and alternatives. Medications were discussed, including any prior use of blood thinning medications by the patient. Patient allergies were reviewed. The risks, including but not limited to infection and bleeding, were reviewed by the performing physician and the patient agreed to undergo the procedure. Prior to the procedure, an audible timeout was done to verify patient identification, site and type of procedure. Attending radiologist Dr. Hansa Shetty, vice president of operations Dr. Tara Ford, a radiology nurse, and a histology technologist were present. PROCEDURE 1: Scanning of the left breast redemonstrated the biopsy site with associated biopsy tissue marker at 11:00 position. 3 mL of buffered 1% lidocaine was injected subcutaneously and into the deeper tissues using ultrasound guidance. A 7 cm needle containing a Magseed was advanced into the inferomedial aspect of the biopsy site, under ultrasound guidance. When the needle tip was satisfactorily positioned, the Magseed was deployed. Scanning of the breast demonstrated the Magseed satisfactorily positioned in the medial aspect of the biopsy site. PROCEDURE 2: Scanning of the left breast redemonstrated the biopsy site with associated biopsy tissue marker at 12:00 position. 3 mL of buffered 1% lidocaine was injected subcutaneously and into the deeper tissues using ultrasound guidance. A 7 cm needle containing a Magseed was advanced into the superolateral aspect of the biopsy site, under ultrasound guidance. When the needle tip was satisfactorily positioned, the Magseed was deployed. Scanning of the breast demonstrated the Magseed satisfactorily positioned within lateral aspect of the biopsy site. PROCEDURE 2: Scanning of the left axilla redemonstrated the lymph node of concern with associated biopsy tissue marker. 3 mL of buffered 1% lidocaine was injected subcutaneously and into the deeper tissues using ultrasound guidance. A 7 cm needle containing a Magseed was advanced into the node, under ultrasound guidance. When the needle tip was satisfactorily positioned, the Magseed was deployed. Scanning of the axilla demonstrated the Magseed satisfactorily positioned within the node. A mammogram was obtained after placement of the Magseeds. This demonstrates satisfactory location of all 3 Magseeds. The patient tolerated the procedure without difficulty. [facility] Hansa Shetty MD - 08/22/2024 Interpreted By: Hansa Shetty, STUDY: BI US GUIDED BREAST LOCALIZATION LEFT; BI BREAST BIOPSY CLIP IMAGING; 08/22/2024 10:39 am; 08/22/2024 11:01 am ACCESSION NUMBER(S): [id number]; [id number] ORDERING CLINICIAN: JOSIE CARPENTER INDICATION: Left breast cancer with metastatic axillary lymph node. FINDINGS: PREPROCEDURAL CONSULTATION: The history and physical exam pertinent to the procedure were reviewed and no updates were made. The procedure was explained to the patient including the risks, benefits, and alternatives. Medications were discussed, including any prior use of blood thinning medications by the patient. Patient allergies were reviewed. The risks, including but not limited to infection and bleeding, were reviewed by the performing physician and the patient agreed to undergo the procedure. Prior to the procedure, an audible timeout was done to verify patient identification, site and type of procedure. Attending radiologist Dr. Hansa Shetty, vice president of operations Dr. Tara Ford, a radiology nurse, and a histology technologist were present. PROCEDURE 1: Scanning of the left breast redemonstrated the biopsy site with associated biopsy tissue marker at 11:00 position. 3 mL of buffered 1% lidocaine was injected subcutaneously and into the deeper tissues using ultrasound guidance. A 7 cm needle containing a Magseed was advanced into the inferomedial aspect of the biopsy site, under ultrasound guidance. When the needle tip was satisfactorily positioned, the Magseed was deployed. Scanning of the breast demonstrated the Magseed satisfactorily positioned in the medial aspect of the biopsy site. PROCEDURE 2: Scanning of the left breast redemonstrated the biopsy site with associated biopsy tissue marker at 12:00 position. 3 mL of buffered 1% lidocaine was injected subcutaneously and into the deeper tissues using ultrasound guidance. A 7 cm needle containing a Magseed was advanced into the superolateral aspect of the biopsy site, under ultrasound guidance. When the needle tip was satisfactorily positioned, the Magseed was deployed. Scanning of the breast demonstrated the Magseed satisfactorily positioned within lateral aspect of the biopsy site. PROCEDURE 2: Scanning of the left axilla redemonstrated the lymph node of concern with associated biopsy tissue marker. 3 mL of buffered 1% lidocaine was injected subcutaneously and into the deeper tissues using ultrasound guidance. A 7 cm needle containing a Magseed was advanced into the node, under ultrasound guidance. When the needle tip was satisfactorily positioned, the Magseed was deployed. Scanning of the axilla demonstrated the Magseed satisfactorily positioned within the node. A mammogram was obtained after placement of the Magseeds. This demonstrates satisfactory location of all 3 Magseeds. The patient tolerated the procedure without difficulty. IMPRESSION: Status post ultrasound-guided bracketing Magseed localization of 2 left breast biopsy sites with tissue markers and Magseed localization of left axillary lymph node with tissue marker. Signed by: Hansa Shetty 08/22/2024 11:11 AM Dictation workstation: [id number] [facility] Work Phone: Radiology Study observation (narrative) [facility] Work Phone: No Panel InformationOrdered By: Hansa Shetty on 08-22-2024 [facility] Work Phone: VAS US LOWER EXTREMITY VENO US DUPLEX RIGHTon 08-15-2024 VAS US LOWER EXTREMITY VENOUS DUPLEX RIGHT Interpreted By: Jerome Hart, STUDY: VAS US LOWER EXTREMITY VENOUS DUPLEX RIGHT; 08/15/2024 2:08 pm INDICATION: Signs/Symptoms:R>L leg swelling. COMPARISON: None. ACCESSION NUMBER(S): [id number] ORDERING CLINICIAN: BRENDA CORTES TECHNIQUE: Vascular ultrasound of the right lower extremity was performed. Real time compression views as well as Pal scale, color Doppler and spectral Doppler waveform analysis was performed. FINDINGS: Evaluation of the visualized portions of the right common femoral vein, proximal, mid, and distal femoral vein, and popliteal vein were performed. Evaluation of the visualized portions of the posterior tibial and peroneal veins were also performed. In addition, evaluation of the contralateral common femoral vein was performed. Limitations: None The evaluated veins demonstrate normal compressibility. There is intact venous flow demonstrating normal respiratory variability and normal augmentation of flow with calf compression. Therefore, there is no ultrasonographic evidence for deep vein thrombosis within the evaluated veins. No evidence of thrombus is seen within the contralateral common femoral vein. IMPRESSION: No sonographic evidence for deep vein thrombosis within the evaluated veins of the right lower extremity. MACRO: None Signed by: Jerome Hart 08/16/2024 6:01 AM Dictation workstation: [id number] Normal [facility] Basic metabolic 2000 panelon 08-12-2024 Anion gap [Moles/Vol] 12 mmol/L Normal 10-20 [facility] Comment on above: Performed By: #### 2 4321-2 #### ROBBY CARPENTER ([id number]) [facility] ([facility]) [address] [place] [address] Calcium [Mass/Vol] 8.5 mg/dL Low 8.6-10.3 [facility] Comment on above: Performed By: #### 2 4321-2 #### ROBBY CARPENTER ([id number]) [facility] ([facility]) [address] [place] [address] Chloride [Moles/Vol] 105 mmol/L Normal 98-107 [facility] Comment on above: Performed By: #### 2 4321-2 #### ROBBY CARPENTER ([id number]) [facility] ([facility]) [address] [place] [address] CO2 [Moles/Vol] 25 mmol/L Normal 21-32 [facility] Comment on above: Performed By: #### 2 4321-2 #### ROBBY CARPENTER ([id number]) [facility] ([facility]) [address] [place] [address] Creatinine [Mass/Vol] 0.83 mg/dL Normal 0.50-1.05 [facility] Comment on above: Performed By: #### 2 4321-2 #### ROBBY CARPENTER ([id number]) [facility] ([facility]) [address] [place] [address] Glomerular filtration rate/1.73 sq M.predicted 75 mL/min/1.73m*2 Normal >60 [facility] Comment on above: Result Comment: Calc ulations of estimated GFR are performed using the 2020 CKD-EPI Study Refit equation without the race variable for the IDMS-Traceable creatinine methods. https://jasn.asnjournals.org/content/early//ASN.11049 10380 Performed By: #### 2 4321-2 #### ROBBY CARPENTER ([id number]) [facility] ([facility]) [address] [place] [address] Glucose [Mass/Vol] 140 mg/dL High 74-99 [facility] Comment on above: Performed By: #### 2 4321-2 #### ROBBY CARPENTER ([id number]) [facility] ([facility]) [address] [place] [address] Potassium [Moles/Vol] 3.3 mmol/L Low 3.5-5.3 [facility] Comment on above: Performed By: #### 2 4321-2 #### ROBBY CARPENTER ([id number]) [facility] ([facility]) [address] [place] [address] Sodium [Moles/Vol] 139 mmol/L Normal 136-145 [facility] Comment on above: Performed By: #### 2 4321-2 #### ROBBY CARPENTER ([id number]) [facility] ([facility]) [address] [place] [address] Urea nitrogen [Mass/Vol] 22 mg/dL Normal 6-23 [facility] Comment on above: Performed By: #### 2 4321-2 #### ROBBY CARPENTER ([id number]) [facility] ([facility]) [address] [place] [address] CBC W Auto Differential pane l (Bld)on 08-12-2024 Basophils (Bld) [#/Vol] 0.09 x10*3/uL Normal 0.00-0.10 [facility] Comment on above: Performed By: #### 5 7021-8 #### ROBBY CARPENTER ([id number]) [facility] ([facility]) [address] [place] [address] Basophils/100 WBC (Bld) 1.0 % Normal 0.0-2.0 [facility] Comment on above: Performed By: #### 5 7021-8 #### ROBBY CARPENTER ([id number]) [facility] ([facility]) [address] [place] [address] Eosinophils (Bld) [#/Vol] 0.21 x10*3/uL Normal 0.00-0.40 [facility] Comment on above: Performed By: #### 7021-8 #### ROBBY CARPENTER ([id number]) [facility] ([facility]) [address] [place] [address] Eosinophils/100 WBC (Bld) 2.2 % Normal 0.0-6.0 [facility] Comment on above: Performed By: #### 7021-8 #### ROBBY CARPENTER ([id number]) [facility] ([facility]) [address] [place] [address] Erythrocyte distribution width (RBC) [Ratio] 15.1 % High 11.5-14.5 [facility] Comment on above: Performed By: #### 5 7021-8 #### ROBBY CARPENTER ([id number]) [facility] ([facility]) [address] [place] [address] Hematocrit (Bld) [Volume fraction] 31.3 % Low 36.0-46.0 [facility] Comment on above: Performed By: #### 5 7021-8 #### ROBBY CARPENTER ([id number]) [facility] ([facility]) [address] [place] [address] Hemoglobin (Bld) [Mass/Vol] 10.4 g/dL Low 12.0-16.0 [facility] Comment on above: Performed By: #### 5 7021-8 #### ROBBY CARPENTER ([id number]) [facility] ([facility]) [address] [place] [address] Immature granulocytes (Bld) [#/Vol] 0.04 x10*3/uL Normal 0.00-0.50 [facility] Comment on above: Performed By: #### 5 7021-8 #### ROBBY CARPENTER ([id number]) [facility] ([facility]) [address] [place] [address] Immature granulocytes/100 WBC (Bld) 0.4 % Normal 0.0-0.9 [facility] Comment on above: Result Comment: Jeannie ture Granulocyte Count (IG) includes promyelocytes, myelocytes and metamyelocytes but does not include bands. Percent differential counts (%) should be interpreted in the context of the absolute cell counts (cells/UL). Performed By: #### 5 7021-8 #### ROBBY CARPENTER ([id number]) [facility] ([facility]) [address] [place] [address] Lymphocytes (Bld) [#/Vol] 1.52 x10*3/uL Normal 0.80-3.00 [facility] Comment on above: Performed By: #### 5 7021-8 #### ROBBY CARPENTER ([id number]) [facility] ([facility]) [address] [place] [address] Lymphocytes/100 WBC (Bld) 16.2 % Normal 13.0-44.0 [facility] Comment on above: Performed By: #### 5 7021-8 #### ROBBY CARPENTER ([id number]) [facility] ([facility]) [address] [place], [place] [id number] MCH (RBC) [Entitic mass] 35.1 pg High 26.0-34.0 [facility] Comment on above: Performed By: #### 5 7021-8 #### ROBBY CARPENTER ([id number]) [facility] ([facility]) [address] [place], [place] [id number] MCHC (RBC) [Mass/Vol] 33.2 g/dL Normal 32.0-36.0 [facility] Comment on above: Performed By: #### 5 7021-8 #### ROBBY CARPENTER ([id number]) [facility] ([facility]) [address] [place] [address] MCV (RBC) [Entitic vol] 106 fL High 80-100 [facility] Comment on above: Performed By: #### 5 7021-8 #### ROBBY CARPENTER ([id number]) [facility] ([facility]) [address] [place] [address] Monocytes (Bld) [#/Vol] 0.87 x10*3/uL High 0.05-0.80 [facility] Comment on above: Performed By: #### 5 7021-8 #### ROBBY CARPENTER ([id number]) [facility] ([facility]) [address] [place] [address] Monocytes/100 WBC (Bld) 9.3 % Normal 2.0-10.0 [facility] Comment on above: Performed By: #### 5 7021-8 #### ROBBY CARPENTER ([id number]) [facility] ([facility]) [address] [place] [address] Neutrophils (Bld) [#/Vol] 6.65 x10*3/uL High 1.60-5.50 [facility] Comment on above: Result Comment: Perc ent differential counts (%) should be interpreted in the context of the absolute cell counts (cells/uL). Performed By: #### 5 7021-8 #### ROBBY CARPENTER ([id number]) [facility] ([facility]) [address] [place] [address] Neutrophils/100 WBC (Bld) 70.9 % Normal 40.0-80.0 [facility] Comment on above: Performed By: #### 5 7021-8 #### ROBBY CARPENTER ([id number]) [facility] ([facility]) [address] [place] [address] Nucleated RBC/100 WBC (Bld) [Ratio] 0.0 /100 WBCs Normal 0.0-0.0 [facility] Comment on above: Performed By: #### 5 7021-8 #### ROBBY CARPENTER ([id number]) [facility] ([facility]) [address] [place] [address] Platelets (Bld) [#/Vol] 286 x10*3/uL Normal 150-450 [facility] Comment on above: Performed By: #### 5 7021-8 #### ROBBY CARPENTER ([id number]) [facility] ([facility]) [address] [place] [address] RBC (Bld) [#/Vol] 2.96 x10*6/uL Low 4.00-5.20 [facility] Comment on above: Performed By: #### 5 7021-8 #### ROBBY CARPENTER ([id number]) [facility] ([facility]) [address] [place] [address] WBC (Bld) [#/Vol] 9.4 x10*3/uL Normal 4.4-11.3 [facility] Comment on above: Performed By: #### 5 7021-8 #### ROBBY CARPENTER ([id number]) [facility] ([facility]) [address] [place] [id number] Magnesiumon 08-12-2024 Magnesium [Mass/Vol] 1.55 mg/dL Low 1.60-2.40 [facility] Comment on above: Performed By: #### 1 9123-9 #### ROBBY CARPENTER ([id number]) [facility] ([facility]) [address] [place] [address] Troponin I.cardiac panelon 1 10-12-2023 Tropinin I.cardiac panel High sensitivity method 4 ng/L Normal 0-13 [facility] Comment on above: Order Comment: Less than 99th percentile of normal range cutoff- Female and children under 18 years old <14 ng/L; Male <21 ng/L: Negative Repeat testing should be performed if clinically indicated. Female and children under 18 years old 14-50 ng/L; Male 21-50 ng/L: Consistent with possible cardiac damage and possible increased clinical risk. Serial measurements may help to assess extent of myocardial damage. >50 ng/L: Consistent with cardiac damage, increased clinical risk and myocardial infarction. Serial measurements may help assess extent of myocardial damage. NOTE: Children less than 1 year old may have higher baseline troponin levels and results should be interpreted in conjunction with the overall clinical context. NOTE: Troponin I testing is performed using a different testing methodology at [facility] than at other [facility]. Direct result comparisons should only be made within the same method. Performed By: #### 8 9577-1 #### ORBBY LI ([id number]) [facility] ([facility]) [address] [place] [address] ONCO-ECHO LIMITED (STRAIN AN D 3D)on 08-05-2024 ONCO-ECHO LIMITED (STRAIN AND 3D) [facility] [address], [address], [place] [address] TRANSTHORACIC ECHOCARDIOGRAM REPORT Patient Name: MARILIA Choi Physician: [id number] Linus Shelby MD Study Date: 08/05/2024 Ordering Provider: [id number] RBENDA CORTES MRN/PID: [id number] Fellow: Nurse: Date of /Age: 9 1950 / 74 years Research Lab Assistant: Luna Henry [facility] Gender assigned at F Additional Staff: : Height: 157.48 cm Admit Date: Weight: 57.15 kg Admission Status: Outpatient BSA / BMI: 1.57 m2 / 23.05 kg/m2 Blood Pressure: 118/57 mmHg Department Location: [facility] Study Type: ONCO-ECHO LIMITED (STRAIN AND 3D) Diagnosis/ICD: Encounter for monitoring cardiotoxic drug therapy-Z51.81; Malignant neoplasm of unspecified site of left female breast-C50.912 Indication: cardiotoxic drug therapy CPT Code: Echo Limited-53146; Color Doppler-28221; Myocardial Strain Imaging-90128 Study Detail: The following Echo studies were performed: 2D, M-Mode and Strain. PHYSICIAN INTERPRETATION: Left Ventricle: The left ventricular systolic function is normal, with a visually estimated ejection fraction of 55-60%. There are no regional left ventricular wall motion abnormalities. The left ventricular cavity size is normal. There is mildly increased septal and normal posterior left ventricular wall thickness. There is left ventricular concentric remodeling. Left Ventricular Global Longitudinal Strain - 22.9 %. Spectral Doppler shows a normal pattern of left ventricular diastolic filling. Left Atrium: The left atrium is mildly dilated. Right Ventricle: The right ventricle is normal in size. There is normal right ventricular global systolic function. Right Atrium: The right atrium is upper limits of normal in size. Aortic Valve: The aortic valve is trileaflet. There is trace aortic valve regurgitation. Mitral Valve: The mitral valve is mild to moderately thickened. There is moderate mitral valve prolapse of the anterior and posterior leaflets. There is mild mitral valve regurgitation. Tricuspid Valve: The tricuspid valve is structurally normal. There is mild tricuspid regurgitation. Pulmonic Valve: The pulmonic valve is not well visualized. There is physiologic pulmonic valve regurgitation. Pericardium: Trivial pericardial effusion. Aorta: The aortic root is normal. In comparison to the previous echocardiogram(s): Compared with study dated 03/23/2024,. ONCO-CARDIOLOGY: Machine: This study was performed on the [employer]. Onco-Cardiology Measurements: Current Measurements 2D EF (Biplane) 54.7%% Global Longitudinal Strain (GLS) -22.9%% GLS Tracking Quality: CONCLUSIONS: 1. The left ventricular systolic function is normal, with a visually estimated ejection fraction of 55-60%. 2. Left Ventricular Global Longitudinal Strain - 22.9 %. 3. There is normal right ventricular global systolic function. 4. The left atrium is mildly dilated. 5. There is moderate mitral valve prolapse. There is mild mitral valve regurgitation. QUANTITATIVE DATA SUMMARY: 2D MEASUREMENTS: Normal Ranges: IVSd: 1.10 cm (0.6-1.1cm) LVPWd: 0.90 cm (0.6-1.1cm) LVIDd: 3.40 cm (3.9-5.9cm) LVIDs: 2.40 cm LV Mass Index: 63 g/m2 LVEDV Index: 39 ml/m2 LV % FS 29.4 % LA VOLUME: Normal Ranges: LA Vol A4C: 47.9 ml (22+/-6mL/m2) LA Vol A2C: 29.8 ml LA Vol BP: 39.8 ml LA Vol Index A4C: 30.5ml/m2 LA Vol Index A2C: 19.0 ml/m2 LA Vol Index BP: 25.3 ml/m2 LA Area A4C: 17.5 cm2 LA Area A2C: 13.1 cm2 LA Major [place] A4C: 5.4 cm LA [place] A2C: 4.9 cm LV SYSTOLIC FUNCTION BY 2D PLANIMETRY (MOD): Normal Ranges: EF-A4C View: 61 % (>=55%) EF-A2C View: 53 % EF-Biplane: 55 % EF-Visual: 58 % LV EF Reported: 58 % Global Longitudinal Strain (GLS): 23 % TRICUSPID VALVE/RVSP: Normal Ranges: IVC Diam: 2.00 cm [id number] Linus Shelby MD Electronically signed on 08/08/2024 at 1:57:18 PM Final Normal [facility] DBT Breast - left diagnostic on 07-29-2024 Radiology Study observation (narrative) [facility] Work Phone: No Panel InformationOrdered By: Adolfo Philip on 07-29-2024 Interpretation and review of laboratory results Abnormal [facility] Work Phone: [facility] Work Phone: No Panel Informationon 07-29 Treatment response o f the left breast masses and left axillary lymph node as described above. Masses are still present between the biopsy markers and generous tissue excision superior to the brackets is recommended at the time of surgery. A pre-procedure form was completed for localization. BI-RADS CATEGORY: BI-RADS CATEGORY: 6 Known Biopsy-Proven Malignancy. Recommendation: Follow Surgical Treatment Plan. Recommended Date: Immediate. Laterality: Left. For any future breast imaging appointments, please call [phone]). I personally reviewed the image(s) / study and I agree with the findings as stated by Walker Yang MD. This study was interpreted at [place], [place]. MACRO: None Signed by: Adolfo Philip 07/29/2024 2:57 PM Dictation workstation: [id number] MMODAL Interpreted By: Adolfo Ramirez and Jiang Sirui STUDY: BI MAMMO LEFT DIAGNOSTIC TOMOSYNTHESIS; BI US BREAST LIMITED LEFT; 07/29/2024 10:46 am; 07/29/2024 11:26 am ACCESSION NUMBER(S): [id number]; [id number] ORDERING CLINICIAN: JOSIE CARPENTER INDICATION: Left breast invasive ductal carcinoma originally diagnosed in January 2024 status post chemotherapy. ,C50.212 Malignant neoplasm of upper-inner quadrant of left female breast,Z17.1 Estrogen receptor negative status (ER-) COMPARISON: Mammogram and ultrasound 01/20/2024. FINDINGS: MAMMOGRAPHY: 2D and tomosynthesis images were reviewed at 1 mm slice thickness. Density: There are scattered areas of fibroglandular density. Masses in the superior left breast at posterior depth with associated biopsy markers have decreased slightly in size compared to prior exam. Masses are still seen between the tissue markers. The previously seen enlarged left axillary lymph node has also decreased in size. No new suspicious masses or calcifications are identified. ULTRASOUND: Targeted ultrasound was performed of the left breast by a registered taffy puller with elastography. An irregular hypoechoic mass is again seen at the 11 o'clock position 10 cm from the nipple with an adjacent biopsy clip. The mass measured 0.5 x 0.3 x 0.6 cm, previously measured 0.6 x 0.6 x 0.5 cm. The previously seen irregular mass at the 12 o'clock position 10 cm from nipple has also decreased in size. The left axillary lymph node with an associated tissue marker measures 2.0 x 1.0 x 1.8 cm, previously measuring 2.7 x 1.5 x 3.0 cm. Findings are consistent with treatment response. [facility] MMODAL Adolfo Philip MD - 07/29/2024 Interpreted By: Adolfo Philip and Jiang Sirui STUDY: BI MAMMO LEFT DIAGNOSTIC TOMOSYNTHESIS; BI US BREAST LIMITED LEFT; 07/29/2024 10:46 am; 07/29/2024 11:26 am ACCESSION NUMBER(S): [id number]; [id number] ORDERING CLINICIAN: JOSIE CARPENTER INDICATION: Left breast invasive ductal carcinoma originally diagnosed in January 2024 status post chemotherapy. ,C50.212 Malignant neoplasm of upper-inner quadrant of left female breast,Z17.1 Estrogen receptor negative status (ER-) COMPARISON: Mammogram and ultrasound 01/20/2024. FINDINGS: MAMMOGRAPHY: 2D and tomosynthesis images were reviewed at 1 mm slice thickness. Density: There are scattered areas of fibroglandular density. Masses in the superior left breast at posterior depth with associated biopsy markers have decreased slightly in size compared to prior exam. Masses are still seen between the tissue markers. The previously seen enlarged left axillary lymph node has also decreased in size. No new suspicious masses or calcifications are identified. ULTRASOUND: Targeted ultrasound was performed of the left breast by a registered taffy puller with elastography. An irregular hypoechoic mass is again seen at the 11 o'clock position 10 cm from the nipple with an adjacent biopsy clip. The mass measured 0.5 x 0.3 x 0.6 cm, previously measured 0.6 x 0.6 x 0.5 cm. The previously seen irregular mass at the 12 o'clock position 10 cm from nipple has also decreased in size. The left axillary lymph node with an associated tissue marker measures 2.0 x 1.0 x 1.8 cm, previously measuring 2.7 x 1.5 x 3.0 cm. Findings are consistent with treatment response. IMPRESSION: Treatment response of the left breast masses and left axillary lymph node as described above. Masses are still present between the biopsy markers and generous tissue excision superior to the brackets is recommended at the time of surgery. A pre-procedure form was completed for localization. BI-RADS CATEGORY: BI-RADS CATEGORY: 6 Known Biopsy-Proven Malignancy. Recommendation: Follow Surgical Treatment Plan. Recommended Date: Immediate. Laterality: Left. For any future breast imaging appointments, please call [phone]). I personally reviewed the image(s) / study and I agree with the findings as stated by Walker Yang MD. This study was interpreted at [facility], [place], [place]. MACRO: None Signed by: Adolfo Philip 07/29/2024 2:57 PM Dictation workstation: [id number] [facility] Work Phone: US Breast - left limitedon 1 09-28-2023 Radiology Study observation (narrative) [facility] Work Phone: COMPMETAon 07-26-2024 Albumin [Mass/Vol] 3.7 g/dL Normal 3.4-5.0 [facility] Comment on above: Performed By: #### 1 06638, [id number], 397772 ####[facility] [address] [place] [address] Medical Director: Tolu Jensen MD Albumin/Globulin [Mass ratio] 1.5 {ratio} Normal [facility] Comment on above: Performed By: #### 1 66000, 106340, 858617 ####[facility] [address] [place] [address] Medical Director: Tolu Jensen MD Alk Phos 142 unit/L High 45-117 [facility] Comment on above: Performed By: #### 1 03672, 779243, 295204 ####[facility] [address] [place] [address] Medical Director: Tolu Jensen MD Bilirubin [Mass/Vol] 0.60 mg/dL Normal 0.30-1.20 [facility] Comment on above: Result Comment: Use of this assay is not recommended for patients undergoing treatment with eltrombopag due to the potential for falsely elevated results. Performed By: #### 1 53045, 774972, 360849 ####[facility] [address] [place] [address] Medical Director: Tolu Jensen MD Calcium [Mass/Vol] 9.3 mg/dL Normal 8.7-10.4 [facility] Comment on above: Performed By: #### 1 11379, 124570, 875655 ####[facility] [address] [place] [address] Medical Director: Tolu Jensen MD Chloride [Moles/Vol] 102 mmol/L Normal 98-107 [facility] Comment on above: Performed By: #### 1 06370, 520798, 428201 ####[facility] [address] [place] [address] Medical Director: Tolu Jensen MD CO2 [Moles/Vol] 24.0 mmol/L Normal 20.0-31.0 [facility] Comment on above: Performed By: #### 1 76973, 976464, 072813 ####[facility] [address] [place] [address] Medical Director: Tolu Jensen MD Creatinine [Mass/Vol] 0.9 mg/dL High 0.5-0.8 [facility] Comment on above: Performed By: #### 1 57357, 169469, 995255 ####[facility] [address] [place], [place] [id number]) [phone] Director: Tolu Jensen MD GFR AA >60 Normal [facility] Comment on above: Result Comment: Afri can [place] GFR Calc Medical judgement is necessary to interpret GFR. The calculated GFR may not accurately reflect renal status in patients >70 years, women, acutely ill hospitalized patients and patients with acute renal failure or known renal disease. The MDRD GFR formula is valid only for adults greater than 18 years of age. Note: Creatinine clearance (not GFR) should be used for drug dosing. Performed By: #### 1 60851, 366651, 363017 ####[facility] [address] [place] [address] [id number]) [phone] Director: Tolu Jensen MD Globulin (S) [Mass/Vol] 2.4 g/dL Normal [facility] Comment on above: Performed By: #### 1 64893, 186128, 174350 ####[facility] [address] [place] [address] [id number]) [phone] Director: Tolu Jensen MD Glomerular Filtration Rate >60 Normal [facility] Comment on above: Result Comment: Non- GFR Calc Medical judgement is necessary to interpret GFR. The calculated GFR may not accurately reflect renal status in patients >70 years, women, acutely ill hospitalized patients and patients with acute renal failure or known renal disease. The MDRD GFR formula is valid only for adults greater than 18 years of age. Note: Creatinine clearance (not GFR) should be used for drug dosing. Performed By: #### 1 60650, 172366, 769765 ####[facility] [address] [place], [place] [id number]) [phone] Director: Tolu Jensen MD Glucose [Mass/Vol] 118 mg/dL High 74-106 [facility] Comment on above: Performed By: #### 1 20739, 775985, 585621 ####[facility] [address] [place] [address] Medical Director: Tolu Jensen MD GOT 28 unit/L Normal 15-37 [facility] Comment on above: Performed By: #### 1 87184, 912470, 866038 ####[facility] [address] [place] [address] Medical Director: Tolu eJnsen MD GPT 15 unit/L Normal 10-49 [facility] Comment on above: Performed By: #### 1 16710, 458380, 053133 ####[facility] [address] [place] [address] Medical Director: Tolu Jensen MD Osmolality [Osmolality] 275 mosm/kg Normal 275-295 [facility] Comment on above: Performed By: #### 1 60811, 733820, 200296 ####[facility] [address] [place] [address] Medical Director: Tolu Jensen MD Potassium [Moles/Vol] 3.8 mmol/L Normal 3.5-5.1 [facility] Comment on above: Performed By: #### 1 99560, 903528, 391162 ####[facility] [address] [place] [address] Medical Director: Tolu Jensen MD Protein [Mass/Vol] 6.1 g/dL Normal 5.7-8.2 [facility] Comment on above: Result Comment: Tota l Protein results may be increased in patients receiving dextran as a blood volume bullard operator Performed By: #### 1 69178, 633395, 061555 ####[facility] [address] [place] [address] Medical Director: Tolu Jensen MD Sodium [Moles/Vol] 137 mmol/L Normal 135-145 [facility] Comment on above: Performed By: #### 1 35275, 493978, 161935 ####[facility] [address] [place] [address] Medical Director: Tolu Jensen MD Urea nitrogen [Mass/Vol] 12 mg/dL Normal 9-23 [facility] Comment on above: Result Comment: - Ve nipuncture should occur prior to N-Acetyl Cysteine (NAC) or Metamizole (Sulpyrine) administration due to the potential for falsely depressed results. - Blood samples from some patients with monoclonal gammopathies may produce falsely elevated results Performed By: #### 1 16753, 072578, 034485 ####[facility] [address] [place] [address] Medical Director: Tolu Jensen MD Urea nitrogen/Creatinine [Mass ratio] 13.3 mg/mg Normal [facility] Comment on above: Performed By: #### 1 48672, 104329, 088474 ####[facility] [address] [place] [address] Medical Director: Tolu Jensen MD Critical Test Results-Texton 07-26-2024 Critical Test Results-Text Critical Test Results Entered On: 07/26/2024 18:04 EST Performed On: 07/26/2024 17:06 EST by Sarina Umaña RN Critical Test Results Date and Time of Contact : 07/26/2024 17:06 EST Critical Results Department : Lab results Critical Test Results : mag 1.1 Critical Results Read Back : Yes Critical Results Physician Notified : Yes Date/Time Physician Notified : 07/26/2024 17:06 EST Provider Informed : ROSHNI HOLT MD Physician Responded : 07/26/2024 17:06 EST Sarina Umaña RN - 07/26/2024 18:03 EST Normal [facility] ED Data WATCH REPAIR TECHNICIAN - Texton 024 ED Data WATCH REPAIR TECHNICIAN - Text ED Data WATCH REPAIR TECHNICIAN Entered On: 07/26/2024 18:29 EST Performed On: 07/26/2024 18:27 EST by Sarina Umaña RN ED General Intake Information Information Given By : Patient [place] Coma : Document Aniceto Coma Scale Problem History : Document Problem History Procedure History : Document Procedure History Safety Screening : Document Safety Screening Referral Source : Home Mode of Arrival * : Car / Walk-In ED KINDER1 Falls Risk : Document Falls Assessment Infection Screening : Document Infection Screening Depression Screening : Document Depression Screening Would you accept a blood transfusion if necessary? : Yes Social History : Document Social History Currently or : Not applicable Sarina Umaña RN - 07/26/2024 18:27 EST [place] Coma Scale Eye Opening : Spontaneously Best Verbal Response : Oriented Best Motor Response : Obeys simple commands [place] Coma Score (Ref) : 15 Sarina Umaña RN - 07/26/2024 18:27 EST Problem History (As Of: 07/26/2024 18:29:02 EST) Problems(Active) Chronic lymphocytic leukemia (SNOMED CT :789697462 ) Name of Problem: Chronic lymphocytic leukemia ; Recorder: Sylwia Cash; Confirmation: Confirmed ; Classification: Medical ; Code: [id number] ; Contributor System: PowerChart ; Last Updated: 05/01/2022 16:25 EDT ; Life Cycle Date: 05/01/2022 ; Life Cycle Status: Active ; Vocabulary: SNOMED CT Diabetes mellitus (SNOMED CT :008839173 ) Name of Problem: Diabetes mellitus ; Recorder: Sylwia Cash; Confirmation: Confirmed ; Classification: Medical ; Code: [id number] ; Contributor System: PowerChart ; Last Updated: 05/02/2022 11:52 EDT ; Life Cycle Date: 05/02/2022 ; Life Cycle Status: Active ; Vocabulary: SNOMED CT Diverticulitis (SNOMED CT :942530992 ) Name of Problem: Diverticulitis ; Recorder: Sylwia Cash; Confirmation: Confirmed ; Classification: Medical ; Code: 400574320 ; Contributor System: PowerChart ; Last Updated: 05/01/2022 16:25 EDT ; Life Cycle Date: 05/01/2022 ; Life Cycle Status: Active ; Vocabulary: SNOMED CT Diverticulosis (SNOMED CT :7908794974 ) Name of Problem: Diverticulosis ; Recorder: Sylwia Cash; Confirmation: Confirmed ; Classification: Medical ; Code: [id number] ; Contributor System: PowerChart ; Last Updated: 05/01/2022 16:25 EDT ; Life Cycle Date: 05/01/2022 ; Life Cycle Status: Active ; Vocabulary: SNOMED CT Fatty liver (SNOMED CT :447951256 ) Name of Problem: Fatty liver ; Recorder: Sylwia Cash; Confirmation: Confirmed ; Classification: Medical ; Code: 152083248 ; Contributor System: PowerChart ; Last Updated: 05/01/2022 16:25 EDT ; Life Cycle Date: 05/01/2022 ; Life Cycle Status: Active ; Vocabulary: SNOMED CT Female bladder prolapse (SNOMED CT :492014316 ) Name of Problem: Female bladder prolapse ; Recorder: Sylwia Cash; Confirmation: Confirmed ; Classification: Medical ; Code: 740178642 ; Contributor System: PowerChart ; Last Updated: 05/01/2022 16:29 EDT ; Life Cycle Date: 05/01/2022 ; Life Cycle Status: Active ; Vocabulary: SNOMED CT Hyperlipidemia (SNOMED CT :98435328 ) Name of Problem: Hyperlipidemia ; Recorder: Sylwia Cash; Confirmation: Confirmed ; Classification: Medical ; Code: 11904760 ; Contributor System: PowerChart ; Last Updated: 05/01/2022 16:26 EDT ; Life Cycle Date: 05/01/2022 ; Life Cycle Status: Active ; Vocabulary: SNOMED CT Hypertension (SNOMED CT :6849273536 ) Name of Problem: Hypertension ; Recorder: Sylwia Cash; Confirmation: Confirmed ; Classification: Medical ; Code: 5843061585 ; Contributor System: PowerChart ; Last Updated: 05/01/2022 16:26 EDT ; Life Cycle Date: 05/01/2022 ; Life Cycle Status: Active ; Vocabulary: SNOMED CT Diagnoses(Active) Abnormal laboratory findings Date: 07/26/2024 ; Diagnosis Type: Reason For Visit ; Confirmation: Confirmed ; Clinical Dx: Abnormal laboratory findings ; Classification: Medical ; Clinical Service: Emergency medicine ; Code: PNED ; Probability: 0 ; Diagnosis Code: [id number] Procedure History ED Urinary Catheter Present on Admit to ED? : No Devices Present on Arrival To ED : Central Venous Access Device Sarina Umaña RN - 07/26/2024 18:27 EST - Procedure History (As Of: 07/26/2024 18:29:02 EST) Anesthesia Minutes: 0 ; Procedure Name: Cholecystectomy ; Procedure Minutes: 0 Procedure Dt/Tm: 11/2021 ; Anesthesia Minutes: 0 ; Procedure Name: Left total knee replacement ; Procedure Minutes: 0 Procedure Dt/Tm: 09/2021 ; Anesthesia Minutes: 0 ; Procedure Name: Colonoscopy - negative, rpt 5 yrs ; Procedure Minutes: 0 Procedure Dt/Tm: 1990 ; Anesthesia Minutes: 0 ; Procedure Name: Dexa Scan - Normal ; Procedure Minutes: 0 Anesthesia Minutes: 0 ; Procedure Name: EVER w/BSO ; Procedure Minutes: 0 Safety Screening Abuse/Violence Concerns? : Patient denies Does the patient have a medically restricted extremity? : No Leeroy TAMEZ, Sarina - 07/26/2024 18:27 EST KINDER1 Fall Risk Assessment (more content not included)... Normal [facility] ED Discharge Educationon ED Discharge Education Orthopedics and Rheumatology Weakness: Care Instructions Your Care Instructions Weakness is a lack of physical or muscle strength. You may feel that you need to make extra effort to move your arms, legs, or other muscles. Generalized weakness means that you feel weak in most areas of your body. Another type of weakness may affect just one muscle or group of muscles. You may feel weak and tired after you have done too much activity, such as taking an extra-long hike. This is not a serious problem. It often goes away on its own. Feeling weak can also be caused by medical conditions like thyroid problems, depression, or a virus. Sometimes the cause can be serious. Your doctor may want to do more tests to try to find the cause of the weakness. The doctor has checked you carefully, but problems can develop later. If you notice any problems or new symptoms, get medical treatment right away. Follow-up care is a sanchez part of your treatment and safety. Be sure to make and go to all appointments, and call your doctor if you are having problems. It's also a good idea to know your test results and keep a list of the medicines you take. How can you care for yourself at home? ? Rest when you feel tired. ? Be safe with medicines. If your doctor prescribed medicine, take it exactly as prescribed. Call your doctor if you think you are having a problem with your medicine. You will get more details on the specific medicines your doctor prescribes. ? Do not skip meals. Eating a balanced diet may increase your energy level. ? Get some physical activity every day, but do not get too tired. When should you call for help? Call your doctor now or seek immediate medical care if: ? You have new or worse weakness. ? You are dizzy or lightheaded, or you feel like you may faint. Watch closely for changes in your health, and be sure to contact your doctor if: ? You do not get better as expected. Where can you learn more? Go to https://www.[place] .net/patientEd Enter V492 in the search box to learn more about Weakness: Care Instructions. Current as of: November 27, 2021 Content Version: 13.3 ? [employer]. Care instructions adapted under license by your healthcare professional. If you have questions about a medical condition or this instruction, always ask your healthcare professional. [employer] disclaims any warranty or liability for your use of this information. Normal [facility] ED Emergency Severity Index Adult-Texton 07-26-2024 ED Emergency Severity Index Adult-Text [place] - Adult Entered On: 07/26/2024 14:26 EST Performed On: 07/26/2024 14:26 EST by Geeta Mehta RN DCP GENERIC CODE Visit Reason : abnormal labs Tracking Triage Date/Time : 07/26/2024 14:26 EST Tracking Reg Status : Requested Tracking Acuity : 3H-Urgent Tracking Group : [facility] Tracking Geeta Mehta RN - 07/26/2024 14:26 EST Normal [facility] ED Patient Summaryon 024 ED Patient Summary [facility] Emergency Department Discharge Instructions [address] [place] [address] (Patient Copy) Name: MARILIA GUZMAN : 1950 Allergies: Levaquin Diagnosis: Generalized weakness; Leukocytosis; Low blood magnesium Visit Date: 07/26/2024 14:01:59 Current Date Time: 07/26/2024 20:06:00 Address: [facility] [place] [address] Phone: [phone] Primary Care Provider: Name: CHANDLER CALZADA Phone: [phone] Emergency Department Care Providers: Primary Physician: MARLINE RODRÍGUEZ MD Thank you for choosing [facility] for your emergency care. You are very important to us. Our goal is to demonstrate our high quality medical care, and provide you with a very good patient experience. You may receive a survey about our service. Please take the time to complete the survey and return it so we can continue to enhance our service. Thank you again for allowing the [facility] Emergency Department to care for your medical needs. If you have questions about your care or follow up information please contact us at [phone]. Follow-Up Instructions __ MARILIA GUZMAN has been given these follow-up instructions: With: Address: When: CHANDLER CALZADA DR NOT ON STAFF [address] [place] [address], [facility] [address] [place] [address] [phone] Business (1) Within 3 to 5 days Patient Education Materials __ MARILIA GUZMAN has been given the following patient education materials: Weakness: Care Instructions Your Care Instructions Weakness is a lack of physical or muscle strength. You may feel that you need to make extra effort to move your arms, legs, or other muscles. Generalized weakness means that you feel weak in most areas of your body. Another type of weakness may affect just one muscle or group of muscles. You may feel weak and tired after you have done too much activity, such as taking an extra-long hike. This is not a serious problem. It often goes away on its own. Feeling weak can also be caused by medical conditions like thyroid problems, depression, or a virus. Sometimes the cause can be serious. Your doctor may want to do more tests to try to find the cause of the weakness. The doctor has checked you carefully, but problems can develop later. If you notice any problems or new symptoms, get medical treatment right away. Follow-up care is a sanchez part of your treatment and safety. Be sure to make and go to all appointments, and call your doctor if you are having problems. It's also a good idea to know your test results and keep a list of the medicines you take. How can you care for yourself at home? ? Rest when you feel tired. ? Be safe with medicines. If your doctor prescribed medicine, take it exactly as prescribed. Call your doctor if you think you are having a problem with your medicine. You will get more details on the specific medicines your doctor prescribes. ? Do not skip meals. Eating a balanced diet may increase your energy level. ? Get some physical activity every day, but do not get too tired. When should you call for help? Call your doctor now or seek immediate medical care if: ? You have new or worse weakness. ? You are dizzy or lightheaded, or you feel like you may faint. Watch closely for changes in your health, and be sure to contact your doctor if: ? You do not get better as expected. Where can you learn more? Go to [email or web address]://www.[place] .net/patientEd Enter V492 in the search box to learn more about Weakness: Care Instructions. Current as of: November 27, 2021 Content Version: 13.3 ? [employer]. Care instructions adapted under license by your healthcare professional. If you have questions about a medical condition or this instruction, always ask your healthcare professional. [employer] disclaims any warranty or liability for your use of this information. BEFORE YOU LEAVE Set up your [facility] [employer] account! [employer] is a secure, online health management tool that connects you to portions of your hospital-based electronic medical record, allowing you to see test results, manage appointments, access discharge care instructions and much more. You can access [employer] from a computer, tablet or smartphone. Enrollment/registratio n is required. If you do not have a [employer] account, please provide us with an email address before you leave so that we may set up an account for you. New to [employer]! You may now securely connect some of the health management apps you use (e.g., fitness trackers, dietary trackers, etc.) to your health record in [facility] [employer]. This new feature provides expanded access to your health and wellness data, which will help you and your care team make inform (more content not included)... Normal [facility] ED Physician Reporton 2023 ED Physician Report MARILIA GUZMAN :1950 Registration Date:07/26/2024 Basic Information Time Seen: YANET DAMON, BARAKAT / 07/26/2024 16:38 History of Present Illness 74-year-old female patient presents ER for evaluation of generalized weakness and low potassium. Patient is a cancer patient, chemotherapy for breast cancer, states she is been feeling weak and having diarrhea, was sent in due to low potassium. Denies any nausea emesis, no fevers, no cough, no chest pain or difficulty breathing. Review of Systems Review of systems otherwise negative Physical Exam Vitals & Measurements Initial: T: 36.7 ?C (Oral) HR: 102 (Peripheral) BP: 100/ 56 RR: 18 SpO2: 99% O2 Therapy: Room air WT: 57.3 kg (Dosing) Latest: HR: 88 (Peripheral) HR: 89 (Monitored) BP: 101/ 55 RR: 17 SpO2: 100% O2 Therapy: Room air Vital Signs: [Per nurse's notes.] General: [Alert, no acute distress.] Skin: [Warm, dry, pink.] Head: [Normocephalic, atraumatic.] Neck: [Supple, trachea midline.] Eye: [Pupils are equal, round and reactive to light.] Cardiovascular: [Regular rate and rhythm, normal peripheral perfusion.] Respiratory: [Lungs are clear to auscultation, respirations are non-labored.] Psychiatric: [Cooperative.] Neurological: [Alert and oriented to person, place, time, and situation.] Abd: Mild diffuse tenderness however no rebound or guarding, no focality Medical Decision Making 74-year-old female patient presents ER for evaluation generalized weakness diarrhea. On arrival to [facility] per differential include but not immunocompromise on chemotherapy for breast cancer. Labs imaging pursued. She was noted to have a significant leukocytosis, limited atypical ACS, electrolyte abnormality, sepsis, C. difficile, intra-abdominal infection. Patient also noted to have a low magnesium which was repleted in the ER. Concern for possible intra-abdominal infection, recommend CT abdomen/pelvis however patient refused, understood risks and benefits. Patient wishes to be discharged, I did recommend admission pending cultures however patient refused, discharged home with follow-up with her primary physicians, advised of signs and symptoms of when to return. All labs and imaging personally reviewed. EKG and cardiac monitoring personally interpreted. Extensive chart review performed by myself. Outside records reviewed. Shared decision-making with the patient. Patient is a full code. Reexamination/Reevalua tion Systolic Blood Pressure: 101 mmHg Diastolic Blood Pressure: 55 mmHg Low Temperature Oral: 36.7 degC Heart Rate Monitored: 89 bpm Respiratory Rate: 17 br/min Mean Arterial Pressure, Cuff: 70 mmHg SpO2: 100 % Oxygen Therapy: Room air Peripheral Pulse Rate: 88 bpm Weight Dosin.3 kg Discharge/Plan *Discharge Disposition ED Discharge to Home - Ordered -- 07/26/2024 19:56:00 EST, Constant Order Patient Education Weakness: Generalized Follow Up With When Contact Information [address] DR NOT ON STAFF Within 3 to [address] [facility] [address] [place] [phone] Business (1) Additional Instructions: Assessment This Visit Diagnosis Generalized weakness R53.1 Leukocytosis D72.829 Low blood magnesium R79.0 Orders: C BLOOD(Blood Cultures SINGLE SET), STAT, 07/26/2024 16:55:00 EST, Specimen type: Blood, Lab to Collect C BLOOD(Blood Cultures SINGLE SET), STAT, 07/26/2024 16:55:00 EST, Specimen type: Blood, Separate Collection, Lab to Collect CDIFF TOX, STAT, 07/26/2024 16:56:00 EST ED Discharge to Home, 07/26/2024 19:56:00 EST, Constant Order LACTATE, STAT, 07/26/2024 16:54:00 EST MG LEVEL, STAT, 07/26/2024 15:49:00 EST UA, STAT, Sarina Umaña RN, 07/26/2024 19:45:00 EST XR CHEST PORTABLE, 07/26/2024 16:55:00 EST, STAT, PNEUMONIA, Cart Problem List/Past Medical History Ongoing Chronic lymphocytic leukemia Diabetes mellitus Diverticulitis Diverticulosis Fatty liver Female bladder prolapse Hyperlipidemia Hypertension Historical Procedure/Surgical History Left total knee replacement (11/2021) Colonoscopy - negative, rpt 5 yrs (09/2021) Dexa Scan - Normal (1990) Cholecystectomy EVER w/BSO Medication Administration Administered: Medications: Normal Saline Bolus (0.9%NaCl), 1000 mL, Fluid Bolus IVPB (07/26/2024 18:22 EST) magnesium sulfate, 2 g, IV Piggyback (07/26/2024 18:23 EST) potassium chloride 20 mEq oral tablet, ER = K-Dur, 40 mEq, ORAL (07/26/2024 19:05 EST) Medication Reconciliation Unchanged atropine-diphenoxylate (Lomotil 2.5 mg-0.025 mg oral tablet)2 Tabs Oral FOUR TIMES A DAY as needed as needed for loose stool. empagliflozin (Jardiance 25 mg oral tablet)1 Tabs Oral DAILY. 30 tabs. hydrochlorothiazide-lo sartan (Hyzaar 50 mg-12.5 mg oral tablet)1 Tabs Oral DAILY. loperamide (Imodium 2 mg oral capsule)1 Capsules Oral ITZEL (more content not included)... Normal [facility] ED Progress Noteon ED Progress Note pt came to ED with concerns for low K+. pt denies chest pain 1999- pt given discharge instructions, verbalized understanding, ambulated to exit with steady gait Normal [facility] ED Triage WATCH REPAIR TECHNICIAN - [place] 07-26 ED Triage WATCH REPAIR TECHNICIAN - Text ED Triage WATCH REPAIR TECHNICIAN Enter ed On: 07/26/2024 14:35 EST Performed On: 07/26/2024 14:34 EST by Geeta Mehta RN Triage Temperature Oral : 36.7 degC(Converted to: 98.1 degF) Systolic Blood Pressure : 100 mmHg Diastolic Blood Pressure : 56 mmHg (LOW) Heart Rate : 102 bpm (HI) Respiratory Rate : 18 br/min Oxygen Saturation : 99 % Oxygen Therapy : Room air ED Document Sepsis Screening : Document Sepsis Screening ED Document Reason for Visit : Document Reason for Visit Scale Type : Standing Scale Weight Dosing : 57.3 kg(Converted to: 126 lb 5 oz) BMI Dosing Calculation : 23 Height/Length Dosing : 157.48 cm(Converted to: 5 ft 2 in) Pain Symptoms : Criss Mehta RN, Geeta - 07/26/2024 14:34 EST (As Of: 07/26/2024 14:35:12 EST) Problems(Active) Chronic lymphocytic leukemia (SNOMED CT :092761239 ) Name of Problem: Chronic lymphocytic leukemia ; Recorder: Sylwia Cash; Confirmation: Confirmed ; Classification: Medical ; Code: 601001284 ; Contributor System: PlaybasisChart ; Last Updated: 05/01/2022 16:25 EDT ; Life Cycle Date: 05/01/2022 ; Life Cycle Status: Active ; Vocabulary: SNOMED CT Diabetes mellitus (SNOMED CT :309357277 ) Name of Problem: Diabetes mellitus ; Recorder: Sylwia Cash; Confirmation: Confirmed ; Classification: Medical ; Code: 103015320 ; Contributor System: PowerChart ; Last Updated: 05/02/2022 11:52 EDT ; Life Cycle Date: 05/02/2022 ; Life Cycle Status: Active ; Vocabulary: SNOMED CT Diverticulitis (SNOMED CT :162489118 ) Name of Problem: Diverticulitis ; Recorder: Sylwia Cash; Confirmation: Confirmed ; Classification: Medical ; Code: 753408395 ; Contributor System: PowerChart ; Last Updated: 05/01/2022 16:25 EDT ; Life Cycle Date: 05/01/2022 ; Life Cycle Status: Active ; Vocabulary: SNOMED CT Diverticulosis (SNOMED CT :5262257380 ) Name of Problem: Diverticulosis ; Recorder: Sylwia Cash; Confirmation: Confirmed ; Classification: Medical ; Code: [id number] ; Contributor System: PowerChart ; Last Updated: 05/01/2022 16:25 EDT ; Life Cycle Date: 05/01/2022 ; Life Cycle Status: Active ; Vocabulary: SNOMED CT Fatty liver (SNOMED CT :826109554 ) Name of Problem: Fatty liver ; Recorder: Sylwia Cash; Confirmation: Confirmed ; Classification: Medical ; Code: 752503371 ; Contributor System: PowerChart ; Last Updated: 05/01/2022 16:25 EDT ; Life Cycle Date: 05/01/2022 ; Life Cycle Status: Active ; Vocabulary: SNOMED CT Female bladder prolapse (SNOMED CT :186332519 ) Name of Problem: Female bladder prolapse ; Recorder: Sylwia Cash; Confirmation: Confirmed ; Classification: Medical ; Code: 022273153 ; Contributor System: PlaybasisChart ; Last Updated: 05/01/2022 16:29 EDT ; Life Cycle Date: 05/01/2022 ; Life Cycle Status: Active ; Vocabulary: SNOMED CT Hyperlipidemia (SNOMED CT :56007215 ) Name of Problem: Hyperlipidemia ; Recorder: Sylwia Cash; Confirmation: Confirmed ; Classification: Medical ; Code: 89746987 ; Contributor System: PowerChart ; Last Updated: 05/01/2022 16:26 EDT ; Life Cycle Date: 05/01/2022 ; Life Cycle Status: Active ; Vocabulary: SNOMED CT Hypertension (SNOMED CT :7530494762 ) Name of Problem: Hypertension ; Recorder: Sylwia Cash; Confirmation: Confirmed ; Classification: Medical ; Code: 0785943227 ; Contributor System: PowerChart ; Last Updated: 05/01/2022 16:26 EDT ; Life Cycle Date: 05/01/2022 ; Life Cycle Status: Active ; Vocabulary: SNOMED CT Diagnoses(Active) Abnormal laboratory findings Date: 07/26/2024 ; Diagnosis Type: Reason For Visit ; Confirmation: Confirmed ; Clinical Dx: Abnormal laboratory findings ; Classification: Medical ; Clinical Service: Emergency medicine ; Code: PNED ; Probability: 0 ; Diagnosis Code: [id number] Reason for Visit (As Of: 07/26/2024 14:35:12 EST) Problems(Active) Chronic lymphocytic leukemia (SNOMED CT :943989928 ) Name of Problem: Chronic lymphocytic leukemia ; Recorder: Sylwia Cash; Confirmation: Confirmed ; Classification: Medical ; Code: 846802711 ; Contributor System: PowerChart ; Last Updated: 05/01/2022 16:25 EDT ; Life Cycle Date: 05/01/2022 ; Life Cycle Status: Active ; Vocabulary: SNOMED CT Diabetes mellitus (SNOMED CT :211938781 ) Name of Problem: Diabetes mellitus ; Recorder: Sylwia Cash; Confirmation: Confirmed ; Classification: Medical ; Code: 225745378 ; Contributor System: Seatwave ; Last Updated: 05/02/2022 11:52 EDT ; Life Cycle Date: 05/02/2022 ; Life Cycle Status: Active ; Vocabulary: SNOMED CT Diverticulitis (SNOMED CT :724649489 ) Name of Problem: Diverticulitis ; Recorder: Sylwia Cash; Confirmation: Confirmed ; Classification: Medical ; Code: 235917974 ; Contributor System: [employer] ; Last Updated: 05/01/2022 16:25 EDT ; Life Cycle Date: 05/01/2022 ; Life Cycle Status: Active ; Vocabulary: SNOMED CT Diverticulosis (SNOMED CT :0042062964 ) Name of Problem: Diverticulosis ; Recorder: Sylwia Cash; Confirmation: Confirmed ; Classification: Medical ; Code: 17 (more content not included)... Normal [facility] HEMOon 07-26-2024 DIFF? Yes Normal [facility] Comment on above: Performed By: #### 1 88354, 464223, 272174 ####[facility] [address] [place], [place] [id number] Medical Director: Tolu Jensen MD [facility] Actions See Notes Abnormal [facility] Comment on above: Result Comment: Scan Slide. Perform manual diff if needed. Emmet # Path Review if Required. SNV Performed By: #### 1 06753, 289858, 679136 ####[facility] [address] [place], [place] [address] Medical Director: Tolu Jensen MD Erythrocyte distribution width (RBC) [Ratio] 13.5 % Normal 11.5-14.5 [facility] Comment on above: Performed By: #### 1 38101, 111736, 769215 ####[facility] [address] [place] [address] Medical Director: Tolu Jensen MD Hematocrit (Bld) [Volume fraction] 31.4 % Low 36.0-46.0 [facility] Comment on above: Performed By: #### 1 84872, 155441, 961105 ####[facility] [address] [place], [place] [address]) [phone] Director: Tolu Jensen MD Hemoglobin (Bld) [Mass/Vol] 10.6 g/dL Low 12.0-16.0 [facility] Comment on above: Performed By: #### 1 48888, 502120, 475975 ####[facility] [address] [place], [place] [id number]) [phone] Director: Tolu Jensen MD Instr WBC 22.3 Normal [facility] Comment on above: Performed By: #### 1 60636, 170562, 702367 ####[facility] [address] [place] [id number]) [phone] Director: Tolu Jensen MD MCH (RBC) [Entitic mass] 35.1 pg High 27.0-34.0 [facility] Comment on above: Performed By: #### 1 82354, 408512, 974179 ####[facility] [address] [place], [place] [id number]) [phone] Director: Tolu Jensen MD MCHC (RBC) [Mass/Vol] 33.9 g/dL Normal 32.0-37.0 [facility] Comment on above: Performed By: #### 1 75768, 642903, 191715 ####[facility] [address] [place], [place] [id number]) [phone] Director: Tolu Jensen MD MCV (RBC) [Entitic vol] 103.6 fL High 80.0-100.0 [facility] Comment on above: Performed By: #### 1 65855, 585730, 090909 ####[facility] [address] [place], [place] [address]) [phone] Director: Tolu Jensen MD MDW 27.06 High 13.98-20.00 [facility] Comment on above: Result Comment: MDW Interpretation: - For adults age 18-89 in ED, MDW >20.0 may be associated with a higher risk of Sepsis during the first 12 hours of hospital admission. - The predictive value of MDW for identifying Sepsis in patients with hematological abnormalities has not been established. - Interpret with caution when immature granulocytes, variant lymphs, or blast cells are noted on the differential. - Confirm patient age is within intended use population (18-89 years) for MDW. - For ED adults suspected of Sepsis, MDW less than or equal to 20.0 does not rule out Sepsis or the risk of Sepsis. Performed By: #### 1 80358, 346711, 973364 ####[facility] [address] [place] [address] Medical Director: Tolu Jensen MD Nucleated RBC 0 /100WBC Normal [facility] Comment on above: Performed By: #### 1 10922, 279371, 020230 ####[facility] [address] [place] [address] Medical Director: Tolu Jensen MD Platelet 194 x10 Normal 150-450 [facility] Comment on above: Performed By: #### 1 36776, 052259, 390569 ####[facility] L[address]xzfuz[address]75 [place] [address] Medical Director: Tolu Jensen MD Platelet mean volume (Bld) [Entitic vol] 10.1 fL Normal 7.4-10.4 [facility] Comment on above: Performed By: #### 1 54825, 182498, 500119 ####[facility] [address]whr[address]756 [place] [address] Medical Director: Tolu Jensen MD RBC 3.03 x10 Low 4.20-5.40 [facility] Comment on above: Result Comment: Note : RBC morphology is normal unless otherwise stated. Evaluation performed only if differential is requested. Performed By: #### 1 96941, 633375, 564943 ####[facility] [address]bmvrh[address]61 [place] [address] Medical Director: Tolu Jensen MD WBC 22.3 x10 High 4.5-11.0 [facility] Comment on above: Performed By: #### 1 19039, 456011, 183865 ####[facility] [address]169 [place] [address] Medical Director: Tolu Jensen MD ROSEP[place] DIFFon 07-26-[address] 2.45 x1000 High 0.00-0.70 [facility] Comment on above: Performed By: #### 1 73942, 464603, 763597 ####[facility] [address] [place] [address] Medical Director: Tolu Jensen MD Absolute Lymph Ct 2.23 x1000 Normal 1.20-4.80 [facility] Comment on above: Performed By: #### 1 17245, 919917, 462162 ####[facility] [address] [place] [address] Medical Director: Tolu Jensen MD Absolute Emmet Ct 2.45 x1000 High 0.10-1.00 [facility] Comment on above: Performed By: #### 1 94055, 341246, 580707 ####[facility] [address] [place] [address] Medical Director: Tolu Jensen MD Absolute Neutrophil Ct 16.95 x1000 High 1.40-8.80 [facility] Comment on above: Performed By: #### 1 73174, 940560, 524015 ####[facility] [address] [place] [address] Medical Director: Tolu Jensen MD Absolute Seg Ct 14.50 x1000 High 1.40-8.80 [facility] Comment on above: Performed By: #### 1 97011, 698927, 752297 ####[facility] [address] [place] [address] Medical Director: Tolu Jensen MD Band form neutrophils/100 WBC (Bld) 11 % Normal [facility] Comment on above: Performed By: #### 1 53822, 729187, 600328 ####[facility] [address] [place] [address] Medical Director: Tolu Jensen MD Left Shift Present Abnormal [facility] Comment on above: Performed By: #### 1 52962, 981280, 771011 ####[facility] [address] [place] [address] Medical Director: Tolu Jensen MD Lymphocytes/100 WBC (Bld) 10 % Normal [facility] Comment on above: Performed By: #### 1 69537, 447590, 916728 ####[facility] [address] [place] [address] Medical Director: Tolu Jensen MD Metamyelocyte % 1 % Normal [facility] Comment on above: Performed By: #### 1 17228, 186268, 374545 ####[facility] [address] [place] [address] Medical Director: Tolu Jensen MD Monocytes/100 WBC (Bld) 11 % Normal [facility] Comment on above: Performed By: #### 1 21404, 949391, 705061 ####[facility] [address] [place] [address] Medical Director: Tolu Jensen MD Myelocyte % 2 % Normal [facility] Comment on above: Performed By: #### 1 75081, 769000, 152564 ####[facility] [address]ids25717 [place] [address] Medical Director: Tolu Jensen MD Segmented neutrophils/100 WBC (Bld) 65 % Normal [facility] Comment on above: Performed By: #### 1 87018, 430868, 912191 ####[facility] [address] [place] [address] Medical Director: Tolu Jensen MD Toxic Granulation Slight Normal [facility] Comment on above: Performed By: #### 1 11073, 173020, 957701 ####[facility] [address]qg[address]9 [place] [address] Medical Director: Tolu Jensen MD MG LEVELon 07-26-2024 Magnesium [Mass/Vol] 1.1 mg/dL Critically abnormal 1.6-2.6 [facility] Comment on above: Result Comment: Crit ical Result(s) called at: 17:06:13 on 07/26/2024 by: BRINA Moore to: LS Performed By: #### 1 96304 #### [facility] Services [address] [place] [address] Cigarette Seller: Tolu Jensen MD Pharmacy Clinical Interventi ons-Texton 07-26-2024 Pharmacy Clinical Interventions-Text Pharmacy Clinical Interventions Entered On: 07/26/2024 18:42 EST Performed On: 07/26/2024 18:41 EST by Carlyle Fairchild CPhT Interventions Intervention Type Pharmacy : Medication history Pharmacy Order Initiated By : Laborer Drying Department Clinical Importance Pharmacy : Potentially major Prescriber Response Pharmacy : Corrected prior to contact Patient Clinical Outcome Pharmacy : Avoided potential risk Pharmacist Intervention Time : 15 Carlyle Fairchild CPhT - 07/26/2024 18:41 EST Med History Med History Grid Location : ED Medications reviewed with : patient Medications added : Hyzaar, loperamide, Lomotil, ondansetron Medications changed : removed lisinopril-HCTZ Additional comments : none Allergies updated : none Patient pharmacy : [facility] Carlyle Fairchild CPhT - 07/26/2024 18:41 EST Normal [facility] UAon 07-26-2024 U MICRO Indicated Normal [facility] Comment on above: Performed By: #### 1 83131 #### [facility] [address] [place] [address] Cigarette Seller: Tolu Jensen MD Appearance, U Clear Normal Clear [facility] Comment on above: Performed By: #### 1 12773 #### [facility] [address] [place] [address] Cigarette Seller: Tolu Jensen MD Bacteria, U Occasional Normal [facility] Comment on above: Performed By: #### 1 44735 #### [facility] [address] [place] [address] Cigarette Seller: Tolu Jensen MD Bilirubin, U Negative Normal Negative [facility] Comment on above: Result Comment: Bili snowden, U: Initial positive urine bilirubin results are not confirmed. Interfering substances may include elevated urobilinogen. Trace = 0.5-1.0 mg/dL Small = 2.0-4.0 mg/dL Moderate = 6.0-8.0 mg/dL Large = 10 mg/dl and greater Performed By: #### 1 34448 #### [facility] [address] [place] [address] Cigarette Seller: Tolu Jensen MD Blood, U Negative Normal Negative [facility] Comment on above: Result Comment: Bloo d, U: Trace = 0.03-0.05 mg/dL Small = 0.06-0.1 mg/dL Moderate = 0.2-0.5 mg/dL Large = 1.0 mg/dL and greater Performed By: #### 1 57689 #### [facility] [address] [place], [place] [address] Cigarette Seller: Tolu Jensen MD Color, U Colorless Normal Yellow [facility] Comment on above: Performed By: #### 1 12035 #### [facility] [address] [place] [id number] Cigarette Seller: Tolu Jensen MD Glucose Qual, U > 1000 mg/dl Abnormal Negative [facility] [facility] Comment on above: Performed By: #### 1 23648 #### [facility] Laboratory Services [address] [place] [address] Cigarette Seller: Tolu Jensen MD Ketones, U Negative Normal Negative [facility] Comment on above: Performed By: #### 1 99762 #### [facility] Services [address] [place] [address] Cigarette Seller: Tolu Jensen MD Leukocyte Esterase, U 250 Stew/ul Abnormal Negative [facility] Comment on above: Result Comment: Leuk ocyte Esterase, U: Trace = 25 Stew/uL Small = 75 Stew/uL Moderate = 250 Stew/uL Large = 500 Stew/uL and greater Performed By: #### 1 68480 #### [facility] Services [address] [place] [address] Cigarette Seller: Tolu Jensen MD Nitrite, U Negative Normal Negative [facility] Comment on above: Performed By: #### 1 05925 #### [facility] Services [address] [place] [address] 23635 Cigarette Seller: Tolu Jensen MD pH, U 6.5 Normal 4.5-8.0 [facility] Comment on above: Performed By: #### 1 37332 #### [facility] Services [address] [place] [address] 95[address] Cigarette Seller: Tolu Jensen MD Protein, U Negative Normal Negative [facility] Comment on above: Performed By: #### 1 23527 #### [facility] Services [address] [place] [address] 19927 Cigarette Seller: Tolu Jensen MD RBC/HPF, U 1 #/HPF Normal 0-3 [facility] Comment on above: Performed By: #### 1 57894 #### [facility] Laboratory Services [address] [place] [address] 266[address] Cigarette Seller: Tolu Jensen MD Specific [place], U 1.011 Normal 1.001-1.035 [facility] Comment on above: Performed By: #### 1 74394 #### [facility] Laboratory Services [address] [place] [address] Cigarette Seller: Tolu Jensen MD Urobilinogen Qual, U < 2 mg/dl Normal < 2 mg/dl [facility] Comment on above: Result Comment: Urob ilinogen, U: EU/dl and mg/dl are equivalent units. Performed By: #### 1 16156 #### [facility] Laboratory Services [address] [place] [address] Cigarette Seller: Tolu Jensen MD WBC/HPF, U 78 #/HPF High 0-5 [facility] Comment on above: Performed By: #### 1 58491 #### [facility] Laboratory Services [address] [place] [address] Cigarette Seller: Tolu Jensen MD XR CHEST PORTABLEon 07-26-20 XR CHEST PORTABLE EXAM: Single view chest. INDICATION: Chest pain. COMPARISON: Chest x-ray: None. FINDINGS: Cardiac silhouette: Unremarkable. Rosina: Unremarkable. Lobar consolidation: None. Pleural effusion: None. Pneumothorax: None. Other: Right chest wall port terminates within the SVC. Bones: Degenerative changes of the shoulders. Other: None. IMPRESSION: 1. No acute cardiopulmonary process. Electronically signed by: Kirby Johnson MD 07/26/2024 06:01 PM [facility] Technologist: AC Dictated By: KIRBY JOHNSON MD Signed By: KIRBY JOHNSON MD Signed Out: 07/26/24 18:01:21 Normal [facility] US Head and neck soft tissue on 06-28-2024 1. No sonographic abnormalities detected. Please note that these statements are based on the recommendations of the [employer] TI-RADS grading system. ACR TI-RADS recommendations: TR5 (?7 points) highly suspicious - FNA if ? 1cm, follow-up if 0.5 -0.9 cm every year for 5 years. Aggregate cancer risk 35%. TR4 (4-6 points) moderately suspicious - FNA if ? 1.5cm, follow-up if 1 -1.4 cm in 1, 2, 3 and 5 years. Aggregate cancer risk 9.1% TR3 (3 points) mildly suspicious - FNA if ? 2.5cm, follow-up if 1.5 -2.4 cm in 1, 3 and 5 years. Aggregate cancer risk 4.8% TR2 (2 points) not suspicious. Aggregate cancer risk 1.5% TR1 (0 points) benign - No FNA or follow-up. Aggregate cancer risk 0.3% Signed by: Kristopher Mccullough 06/28/2024 5:07 PM Dictation workstation: [id number] MMODAL Interpreted By: Kristopher Mccullough, STUDY: US HEAD NECK SOFT TISSUE; 06/28/2024 1:37 pm INDICATION: Signs/Symptoms:new protrusion right side of mediport. COMPARISON: None. ACCESSION NUMBER(S): [id number] ORDERING CLINICIAN: DIMA CAGE TECHNIQUE: Multiple ultrasonographic images of the area of clinical concern adjacent to MediPort FINDINGS: No fluid collections or focal lesions detected in the region of clinical concern. MMODAL Kristopher Mccullough MD - 06/28/2024 Interpreted By: Kristopher Mccullough, STUDY: US HEAD NECK SOFT TISSUE; 06/28/2024 1:37 pm INDICATION: Signs/Symptoms:new protrusion right side of mediport. COMPARISON: None. ACCESSION NUMBER(S): [id number] ORDERING CLINICIAN: DIMA CAGE TECHNIQUE: Multiple ultrasonographic images of the area of clinical concern adjacent to MediPort FINDINGS: No fluid collections or focal lesions detected in the region of clinical concern. IMPRESSION: 1. No sonographic abnormalities detected. Please note that these statements are based on the recommendations of the [employer] TI-RADS grading system. ACR TI-RADS recommendations: TR5 (?7 points) highly suspicious - FNA if ? 1cm, follow-up if 0.5 -0.9 cm every year for 5 years. Aggregate cancer risk 35%. TR4 (4-6 points) moderately suspicious - FNA if ? 1.5cm, follow-up if 1 -1.4 cm in 1, 2, 3 and 5 years. Aggregate cancer risk 9.1% TR3 (3 points) mildly suspicious - FNA if ? 2.5cm, follow-up if 1.5 -2.4 cm in 1, 3 and 5 years. Aggregate cancer risk 4.8% TR2 (2 points) not suspicious. Aggregate cancer risk 1.5% TR1 (0 points) benign - No FNA or follow-up. Aggregate cancer risk 0.3% Signed by: Kristopher Mccullough 06/28/2024 5:07 PM Dictation workstation: [id number] [facility] Work Phone: Radiology Study observation (narrative) [facility] Work Phone: US Head and neck soft tissue Ordered By: Kristopher Mccullough on 06-28-2024 [facility] Work Phone: ED NOTEon 06-09-2024 ED NOTE HNO ID: [id number] Author: EMPERATRIZ LUND RN Service: Nursing Author Type: Registered Nurse Type: ED Notes Filed: 06/09/2024 11:43 Note Text: Emergency Services: ED Call Back Questionnaire SERVICE DATE: 06/08/2024 Are you feeling better? Comments: Spoke with the pt on the phone rgarding questions about her prescriptions that she received last night. Clarified with the pt on what her written prescriptions were last night and encouraged the pt consult with her oncologist and the pharmacist at [facility] when she picks them up. Pt stated understanding Any questions about discharge instructions and follow-up care? No Were you able to make a follow up appointment? Yes Do you have any further questions? No Is there anything that we could have done differently to improve your ED visit? No SIGNATURE: Emperatriz Lund RN PATIENT NAME: Marilia Guzman DATE: June 09, 2024 TIME: 11:41 [facility] HNO ID: [id number] Author: ALDO AGUIRRE RT(R) Service: Radiology Author Type: Technologist Type: Allied Health Filed: 06/08/2024 22:49 Note Text: Radiology Service Progress Note DATE OF SERVICE: June 08, 2024 TIME: 10:40 PM PATIENT IDENTITY VERIFICATION COMPLETED USING TWO (2) STANDARD IDENTIFIERS: Name and Date of confirmed by patient verbally and Name and Date of confirmed by identification band. FALL SCREENING: Has the patient had 2 falls in the last year or 1 fall with injury or currently using an Ambulatory Assistive Device (Walker, Cane, Wheelchair, Crutches, etc.)? Emergency Room Patient: Screened in ED PATIENT GENDER DATA: Female. status: : No status: NO. PATIENT RELEVANT IMPLANT DATA REVIEWED: Not Applicable PATIENT PRESENTS WITH AN IMPLANTABLE OR ATTACHED TUBE SORTER: No ALLERGIES: Reviewed and unchanged CONTRAST ALLERGY: NO. EXAM: CT -CONTRAST INDUCED NEPHROPATHY RISK FACTORS: Patient age > 60 years CREATININE: Creatinine Date Value Ref Range Status 06/08/2024 0.57 (L) 0.58 - 0.96 mg/dL Final 05/25/2024 0.69 0.58 - 0.96 mg/dL Final 05/24/2024 1.05 (H) 0.58 - 0.96 mg/dL Final Estimated Glomerular Filtration Rate Date Value Ref Range Status 06/08/2024 96 >=60 mL/min/1.73m? Final Comment: Estimated Glomerular Filtration Rate (eGFR) is calculated using the 2020 CKD-EPI creatinine equation. This equation utilizes serum creatinine, sex, and age as parameters. The creatinine assay has traceable calibration to isotope dilution-mass spectrometry. Refer to KDIGO guidelines for clinical interpretation. In patients with unstable renal function, e.g. those with acute kidney injury, the eGFR may not accurately reflect actual GFR. P.O.C.T. RESULTS: POC done: Yes, See Lab Tab June 08, 2024 TREATMENT: N/A PERIPHERAL IV DATA: Inpatient - refer to LDA documentation RADIOLOGY DEPARTMENT: CT; Exam(s) Completed: Abdomen/Pelvis SIGNATURE: RT Ashley(R) PATIENT NAME: Marilia Guzman DATE: June 08, 2024 TIME: 10:40 PM Normal [facility] CBC W Auto Differential pane l (Bld)on 06-08-2024 Anisocytosis Ql (Bld) Present Normal [facility] Comment on above: Order Comment: Cailin bryan Type: BLOOD SPECIMEN Ordering Facility: [facility] Address: [address] [place] [address] Performed By: #### 5 7021-8 #### [facility] CLIA [id number] [address] [place] [address] [place] Basophils (Bld) [#/Vol] 0.00 10*3/uL Normal <0.11 [facility] Comment on above: Order Comment: Cailin bryan Type: BLOOD SPECIMEN Ordering Facility: [facility] Address: [address] [place] [address] Performed By: #### 5 7021-8 #### [facility] CLIA [id number] [address] Basophils/100 WBC (Bld) 0.0 % Normal [facility] Comment on above: Order Comment: Speci men Type: BLOOD SPECIMEN Ordering Facility: [facility] Address: [address] [place] [address] Performed By: #### 5 7021-8 #### [facility] CLIA [id number] [address] Differential cell count method Nom (Bld) Manual Normal [facility] Comment on above: Order Comment: Speci men Type: BLOOD SPECIMEN Ordering Facility: [facility] Address: [address] [place] [address] Performed By: #### 5 7021-8 #### [facility] CLIA [id number] [address] [place] [address] [place] Eosinophils (Bld) [#/Vol] 0.00 10*3/uL Normal <0.46 [facility] Comment on above: Order Comment: Speci men Type: BLOOD SPECIMEN Ordering Facility: [facility] Address: [address] [place] [address] Performed By: #### 5 7021-8 #### [facility] CLIA [id number] [address] Eosinophils/100 WBC (Bld) 0.0 % Normal [facility] Comment on above: Order Comment: Speci men Type: BLOOD SPECIMEN Ordering Facility: [facility] Address: [address] [place] [address] Performed By: #### 5 7021-8 #### [facility] CLIA [id number] [address] [place] Erythrocyte distribution width (RBC) [Ratio] 18.5 % High 11.5-15.0 [facility] Comment on above: Order Comment: Speci men Type: BLOOD SPECIMEN Ordering Facility: [facility] Address: [address] [place] [address] Performed By: #### 5 7021-8 #### [facility] CLIA [id number] [address] Hematocrit (Bld) [Volume fraction] 32.2 % Low 36.0-46.0 [facility] Comment on above: Order Comment: Speci men Type: BLOOD SPECIMEN Ordering Facility: [facility] Address: [address] [place] [address] Performed By: #### 5 7021-8 #### [facility] CLIA [id number] [address] STATES OF [facility] Hemoglobin (Bld) [Mass/Vol] 11.1 g/dL Low 11.5-15.5 [facility] Comment on above: Order Comment: Speci men Type: BLOOD SPECIMEN Ordering Facility: [facility] Address: [address] [place] [address] Performed By: #### 5 7021-8 #### [facility] CLIA [id number] [address] [place] Lymphocytes (Bld) [#/Vol] 0.45 10*3/uL Low 1.00-4.00 [facility] Comment on above: Order Comment: Speci men Type: BLOOD SPECIMEN Ordering Facility: [facility] Address: [address] [place] [address] Performed By: #### 5 7021-8 #### [facility] CLIA [id number] [address] Lymphocytes/100 WBC (Bld) 1.0 % Normal [facility] Comment on above: Order Comment: Speci men Type: BLOOD SPECIMEN Ordering Facility: [facility] Address: [address] [place] [address] Performed By: #### 5 7021-8 #### [facility] CLIA [id number] [address] MCH (RBC) [Entitic mass] 33.8 pg Normal 26.0-34.0 [facility] Comment on above: Order Comment: Speci men Type: BLOOD SPECIMEN Ordering Facility: [facility] Address: [address] [place] [address] Performed By: #### 5 7021-8 #### [facility] CLIA [id number] [address] [place] [address] [place] MCHC (RBC) [Mass/Vol] 34.5 g/dL Normal 30.5-36.0 [facility] Comment on above: Order Comment: Speci men Type: BLOOD SPECIMEN Ordering Facility: [facility] Address: [address] [place] [address] Performed By: #### 5 7021-8 #### [facility] CLIA [id number] [address] [place] MCV (RBC) [Entitic vol] 98.2 fL Normal 80.0-100.0 [facility] Comment on above: Order Comment: Speci men Type: BLOOD SPECIMEN Ordering Facility: [facility] Address: [address] [place] [address] Performed By: #### 5 7021-8 #### [facility] CLIA [id number] [address] [place] [address] [place] Monocytes (Bld) [#/Vol] 0.45 10*3/uL Normal <0.87 [facility] Comment on above: Order Comment: Speci men Type: BLOOD SPECIMEN Ordering Facility: [facility] Address: [address] [place] [address] Performed By: #### 5 7021-8 #### [facility] CLIA [id number] [address] Monocytes/100 WBC (Bld) 1.0 % Normal [facility] Comment on above: Order Comment: Speci men Type: BLOOD SPECIMEN Ordering Facility: [facility] Address: [address] [place] [address] Performed By: #### 5 7021-8 #### [facility] CLIA [id number] [address] [place] MYELO% 5.0 % Normal [facility] Comment on above: Order Comment: Speci men Type: BLOOD SPECIMEN Ordering Facility: [facility] Address: [address] [place] [address] Performed By: #### 5 7021-8 #### [facility] CLIA [id number] [address] [place] [address] [place] Neutrophils (Bld) [#/Vol] 42.30 10*3/uL High 1.45-7.50 [facility] Comment on above: Order Comment: Speci men Type: BLOOD SPECIMEN Ordering Facility: [facility] Address: [address] [place] [address] Performed By: #### 5 7021-8 #### [facility] CLIA [id number] [address] [place] [address] [place] Neutrophils/100 WBC (Bld) 93.0 % Normal [facility] Comment on above: Order Comment: Speci men Type: BLOOD SPECIMEN Ordering Facility: [facility] Address: [address] [place] [address] Performed By: #### 5 7021-8 #### [facility] CLIA [id number] [address] [place] [address] [place] Nucleated RBC (Bld) [#/Vol] 10*3/uL Normal <0.01 [facility] Comment on above: Order Comment: Speci men Type: BLOOD SPECIMEN Ordering Facility: [facility] Address: [address] [place] [address] Performed By: #### 5 7021-8 #### [facility] CLIA [id number] [address] [place] Nucleated RBC/100 WBC (Bld) [Ratio] 0.0 /100 WBC Normal [facility] Comment on above: Order Comment: Speci men Type: BLOOD SPECIMEN Ordering Facility: [facility] Address: [address] [place] [address] Performed By: #### 5 7021-8 #### [facility] CLIA [id number] [address] [place] [address] [place] Platelet mean volume (Bld) [Entitic vol] 11.2 fL Normal 9.0-12.7 [facility] Comment on above: Order Comment: Speci men Type: BLOOD SPECIMEN Ordering Facility: [facility] Address: [address] [place] [address] Performed By: #### 5 7021-8 #### [facility] CLIA [id number] [address] [place] Platelets (Bld) [#/Vol] 175 10*3/uL Normal 150-400 [facility] Comment on above: Order Comment: Speci men Type: BLOOD SPECIMEN Ordering Facility: [facility] Address: [address] [place] [address] Performed By: #### 5 7021-8 #### [facility] CLIA [id number] [address] Platelets Estimate (Bld) [#/Vol] Adequate Normal [facility] Comment on above: Order Comment: Speci men Type: BLOOD SPECIMEN Ordering Facility: [facility] Address: [address] [place] [address] Performed By: #### 5 7021-8 #### [facility] CLIA [id number] [address] RBC (Bld) [#/Vol] 3.28 10*6/uL Low 3.90-5.20 [facility] Comment on above: Order Comment: Speci men Type: BLOOD SPECIMEN Ordering Facility: [facility] Address: [address] [place] [address] Performed By: #### 5 7021-8 #### [facility] CLIA [id number] [address] RED CELL MORPH Reviewed: see result s of individual morphologies [facility] Comment on above: Order Comment: Speci men Type: BLOOD SPECIMEN Ordering Facility: [facility] Address: [address] [place] [address] Performed By: #### 5 7021-8 #### [facility] CLIA [id number] [address] [place] WBC (Bld) [#/Vol] 45.48 10*3/uL High 3.70-11.00 [facility] Comment on above: Order Comment: Speci men Type: BLOOD SPECIMEN Ordering Facility: [facility] Address: [address] [place] [address] Performed By: #### 5 7021-8 #### [facility] CLIA [id number] [address] [place] [address] [place] WBC Left Shift Ql (Bld) Present Normal [facility] Comment on above: Order Comment: Speci men Type: BLOOD SPECIMEN Ordering Facility: [facility] Address: [address] [place] [id number] Performed By: #### 5 7021-8 #### [facility] CLIA [id number] [address] [place] [id number] [place] CT ABD/PEL W IVCONon 024 CT ABD/PEL W IVCON * * *Final Report* * * DATE OF EXAM: Jun 08 2024 10:57PM [facility] 0530 - CT ABD/PEL W IVCON / PROCEDURE REASON: Abdominal pain, acute, nonlocalized * * * * Physician Interpretation * * * * EXAMINATION: CT ABDOMEN AND PELVIS WITH IV CONTRAST CLINICAL HISTORY: Abdominal pain. Concern for bowel obstruction. CLL on chemotherapy TECHNIQUE: CT of the abdomen and pelvis was performed using standard technique, scanning from just above the dome of the diaphragm to the symphysis pubis. MQ: CTAP_3 Contrast: IV: 100 ml of Omnipaque 350 CT Radiation dose: Integrated Dose-length product (DLP) for this visit = 231.7 mGy*cm. CT Dose Reduction Employed: Automated exposure control(AEC) and iterative recon COMPARISON: CT abdomen/pelvis 07/05/2014. RESULT: Liver: No mass. Biliary: No bile duct dilation. Post cholecystectomy. Spleen: No mass. No splenomegaly. Pancreas: No mass or duct dilation. Adrenals: No mass. Kidneys: No mass, calculus or hydronephrosis. GI tract: Rectal distention with fecal material. Mild perirectal edema and rectosigmoid wall thickening. No evidence of bowel obstruction. Liquid stool noted within the upstream colon. Normal appendix. Lymph nodes: No abdominal or pelvic lymphadenopathy. Mesentery/Peritoneum: No ascites or mass. Retroperitoneum: No mass. Vasculature: Aortoiliac atherosclerotic disease without aneurysm. Aorta and branch vessels are patent. Portal venous system is patent. Opacified hepatic veins and IVC appear patent. Pelvis: No mass, ascites or fluid collection. Bones/Soft Tissues: No acute or aggressive osseous lesion. No acute soft tissue abnormality. Degenerative changes. Lower thorax: No acute process. Localizer images: IMPRESSION: * Fecal distention of the rectosigmoid colon with findings worrisome for stercoral proctocolitis. * Overall large volume colonic stool both well-formed and liquid likely reflecting constipation. * Multiple other chronic and less pertinent findings as detailed above. Software Engineer Developer: CHRIS Transcribe Date/Time: Jun 08 2024 11:56P Dictated by : ALBINO JONAS MD This examination was interpreted and the report reviewed and electronically signed by: ALBINO JONAS MD on Jun 09 2024 12:11AM EST [id number] Normal [facility] Comprehensive metabolic 2000 panelon 06-08-2024 Albumin [Mass/Vol] 3.9 g/dL Normal 3.9-4.9 [facility] Comment on above: Order Comment: Speci men Type: BLOOD SPECIMENOrdering Facility: [facility] Address: [address] [place] [address] Performed By: #### 2 4323-8, 0-3, ####[facility] [id number] [place] [address] [place] ALP [Catalytic activity/Vol] 135 U/L High 34-123 [facility] Comment on above: Order Comment: Speci men Type: BLOOD SPECIMENOrdering Facility: [facility] Address: [address] [place] [address] Performed By: #### 2 4323-8, 0-3, ####[facility] [id number] [place] [id number] [place] ALT [Catalytic activity/Vol] 19 U/L Normal 7-38 [facility] Comment on above: Order Comment: Speci men Type: BLOOD SPECIMENOrdering Facility: [facility] Address: [address] [place] [address] Performed By: #### 2 4323-8, 3040-3, ####[facility] [id number] [place] [address] [place] Anion gap [Moles/Vol] 14 mmol/L Normal 8-15 [facility] Comment on above: Order Comment: Speci men Type: BLOOD SPECIMENOrdering Facility: [facility] Address: [address] [place] [id number] Performed By: #### 2 4323-8, 0-3, ####[facility] [id number] [place] [address] [place] AST [Catalytic activity/Vol] 21 U/L Normal 13-35 [facility] Comment on above: Order Comment: Speci men Type: BLOOD SPECIMENOrdering Facility: [facility] Address: [address] [place] [address] Performed By: #### 2 4323-8, 3039-3, ####[facility] [id number] [place] [address] [place] Bilirubin [Mass/Vol] 1.5 mg/dL High 0.2-1.3 [facility] Comment on above: Order Comment: Speci men Type: BLOOD SPECIMENOrdering Facility: [facility] Address: [address] [facility] [place] [address] Performed By: #### 2 4323-8, 3, ####[facility] [id number] [place] [address] [place] Calcium [Mass/Vol] 8.8 mg/dL Normal 8.5-10.2 [facility] Comment on above: Order Comment: Speci men Type: BLOOD SPECIMENOrdering Facility: [facility] Address: [address] [place] [id number] Performed By: #### 2 4323-8, 3039-3, ####[facility] [id number] [place] [id number] [place] Chloride [Moles/Vol] 100 mmol/L Normal 98-107 [facility] Comment on above: Order Comment: Speci men Type: BLOOD SPECIMENOrdering Facility: [facility] Address: [address] [facility] [place] [address] Performed By: #### 2 4323-8, 0-3, ####[facility] [id number] [place] [address] [place] CO2 [Moles/Vol] 20 mmol/L Low 22-30 [facility] Comment on above: Order Comment: Cailin bryan Type: BLOOD SPECIMENOrdering Facility: [facility] Address: [address] [place] [address] Performed By: #### 2 4323-8, 3040-3, ####CASAS LABORATORYCLIA [id number] [place] [address] [place] Creatinine [Mass/Vol] 0.57 mg/dL Low 0.58-0.96 [facility] Comment on above: Order Comment: Speci men Type: BLOOD SPECIMENOrdering Facility: [facility] Address: [address] [place] [address] Performed By: #### 2 4323-8, 0-3, ####CASAS LABORATORYCLIA [id number] [address] Creatinine and Glomerular filtration rate.predicted panel (S/P/Bld) 96 mL/min/1.73m??? Normal >=60 [facility] Comment on above: Order Comment: Cailin bryan Type: BLOOD SPECIMENOrdering Facility: [facility] Address: [address] [place] [address] Result Comment: Amarjit mated Glomerular Filtration Rate (eGFR) is calculated using the 2020 CKD-EPI creatinine equation. This equation utilizes serum creatinine, sex, and age as parameters. The creatinine assay has traceable calibration to isotope dilution-mass spectrometry. Refer to KDIGO guidelines for clinical interpretation. In patients with unstable renal function, e.g. those with acute kidney injury, the eGFR may not accurately reflect actual GFR. Performed By: #### 2 4323-8, 3040-3, ####CASAS LABORATORYCLIA [id number] [place] [id number] [place] Glucose [Mass/Vol] 149 mg/dL High 74-99 [facility] Comment on above: Order Comment: Speci men Type: BLOOD SPECIMENOrdering Facility: [facility] Address: [address] [place] [address] Result Comment: The [place] [employer] (ADA) provides guidance for cutoff values for fasting glucose and random glucose. The ADA defines fasting as no caloric intake for at least 8 hours. Fasting plasma glucose results between 100 to 125 mg/dL indicate increased risk for diabetes (prediabetes). Fasting plasma glucose results greater than or equal to 126 mg/dL meet the criteria for diagnosis of diabetes. In the absence of unequivocal hyperglycemia, results should be confirmed by repeat testing. In a patient with classic symptoms of hyperglycemia or hyperglycemic crisis, random plasma glucose results greater than or equal to 200 mg/dL meet the criteria for diagnosis of diabetes. Reference: Standards of Medical Care in Diabetes 2016, [place] [employer]. Diabetes Care. 2016.39(Suppl 1). Performed By: #### 2 4323-8, 0-3, ####CASAS LABORATORYCLIA [id number] [place] [address] [place] Potassium [Moles/Vol] 3.2 mmol/L Low 3.7-5.1 [facility] Comment on above: Order Comment: Cailin bryan Type: BLOOD SPECIMENOrdering Facility: [facility] Address: [address] [place] [address] Performed By: #### 2 4323-8, 3, ####CASAS LABORATORYCLIA [id number] [place] [address] [place] Protein [Mass/Vol] 5.9 g/dL Low 6.3-8.0 [facility] Comment on above: Order Comment: Cailin bryan Type: BLOOD SPECIMENOrdering Facility: [facility] Address: [address] [place] [address] Performed By: #### 2 4323-8, 03, ####CASAS LABORATORYCLIA [id number] [place] [address] [place] Sodium [Moles/Vol] 134 mmol/L Low 136-144 [facility] Comment on above: Order Comment: Cailin men Type: BLOOD SPECIMENOrdering Facility: [facility] Address: [address] [place] [address] Performed By: #### 2 4323-8, 0-3, ####CASAS LABORATORYCLIA [id number] [place] [id number] [facility] Urea nitrogen [Mass/Vol] 22 mg/dL High 7- [facility] Comment on above: Order Comment: Speci men Type: BLOOD SPECIMENOrdering Facility: [facility] Address: [address] [place] [address] [place] [address] Performed By: #### 2 4323-8, 3040-3, ####[facility] LABORATORYCLIA [id number] [place] [id number] [place] ED PROV NOTEon 06-08-2024 ED PROV NOTE HNO ID: [id number] Author: ELIANA VALENCIA MD Service: ? Author Type: Physician Type: ED Provider Notes Filed: 06/09/2024 00:19 Note Text: ED Provider Note Patient Name: Marilia Guzman : 1950 SERVICE DATE: 06/08/24 History Patient presents with: Abdominal Pain Constipation: Since 2 am today, pt on chemo last was Thursday pt states oncologist told to come to ED to rule out bowel obstruction History provided by: Patient full time staff interpreter used: No Abdominal Pain Pain location: Generalized Pain quality: aching Pain radiates to: Does not radiate Pain severity: Moderate Onset quality: Sudden Timing: Constant Progression: Worsening Chronicity: New Context: previous surgery Relieved by: Nothing Worsened by: Nothing Ineffective treatments: None tried Associated symptoms: dysuria, nausea and vomiting Associated symptoms: no flatus PAST MEDICAL HISTORY Diagnosis Date - Arthritis - Diabetes (HCC) - Hypertension PAST SURGICAL HISTORY Procedure Laterality Date - CHOLECYSTECTOMY HX - HYSTERECTOMY HX No family history on file. Social History Tobacco Use - Smoking status: Never - Smokeless tobacco: Not on file Substance and Sexual Activity - Alcohol use: No - Drug use: No - Sexual activity: Yes control/protection: Surgical ALLERGIES No Known Allergies Review of Systems Gastrointestinal: Positive for abdominal pain, nausea and vomiting. Negative for flatus. Genitourinary: Positive for dysuria. Physical Exam Vitals [06/08/24 2105] BP Pulse Temp Temp src Resp SpO2 Weight Height 113/81 (!) 120 36.6 ?C (97.9 ?F) Oral 18 98 % 56.7 kg (125 lb) -- Physical Exam Vitals and nursing note reviewed. Constitutional: Appearance: She is well-developed. HENT: Head: Normocephalic and atraumatic. Right Ear: External ear normal. Left Ear: External ear normal. Nose: Nose normal. Eyes: General: Lids are normal. Lids are everted, no foreign bodies appreciated. Conjunctiva/sclera: Conjunctivae normal. Neck: Trachea: Trachea normal. Cardiovascular: Rate and Rhythm: Regular rhythm. Tachycardia present. Heart sounds: Normal heart sounds. Pulmonary: Effort: Pulmonary effort is normal. Breath sounds: Normal breath sounds. Abdominal: General: Bowel sounds are decreased. There is no distension. Palpations: Abdomen is soft. Tenderness: There is generalized abdominal tenderness. Musculoskeletal: General: Normal range of motion. Right shoulder: Normal. Left shoulder: Normal. Cervical back: Normal range of motion and neck supple. No deformity. Thoracic back: No deformity. Right ankle: Normal. Left ankle: Normal. Lymphadenopathy: Cervical: No cervical adenopathy. Skin: General: Skin is warm and dry. Neurological: Mental Status: She is alert and oriented to person, place, and time. GCS: GCS eye subscore is 4. GCS verbal subscore is 5. GCS motor subscore is 6. Cranial Nerves: No cranial nerve deficit. Sensory: No sensory deficit. Deep Tendon Reflexes: Reflexes are normal and symmetric. Psychiatric: Attention and Perception: Attention and perception normal. Diagnostic Testing ED Labs Ordered and Reviewed - No data to display Procedures ED Course / Clinical Impression Clinical Impressions as of 06/09/24 0020 Hypokalemia Hypomagnesemia Abdominal pain, unspecified abdominal location Constipation, unspecified constipation type Leukocytosis, unspecified type - History of CLL MDM / Disposition / Plan 74-year-old comes in with abdominal pain she is got breast cancer, had chemotherapy on Thursday no fevers or chills. The patient has had increasing abdominal pain and decreased bowel movements. She has tried MiraLAX as well as Dulcolax suppositories unsuccessfully she contacted her oncologist who is concerned that she has a bowel obstruction. They are sending her to the ER for evaluation. She has nausea vomiting no fevers or chills. A little bit of dysuria. No other constitutional signs or symptoms she has had her gallbladder removed and she has had an hysterectomy in the past. Patient is also diabetic Physical exam Afebrile tachycardic vital signs otherwise normal Cardiac tachycardic S1-S2 no rubs murmurs gallops Pulmonary exam clear to auscultation no rales rhonchi or crackles Abdomen is soft bowel sounds are hypoactive, just diffusely tender Lymphatics no adenopathy Musculoskeletal no cyanosis clubbing edema Skin clean dry and intact Differential diagnosis #1 small bowel obstruction #2 volvulus #3 obstipation #4 SVT #5 A-fib EKG shows a normal sinus rhythm normal axis no acute ST elevation or depression T waves P waves intervals within normal limits no acute ischemic findings Results for orders placed or performed during the hospital encounter of 06/08/24 -COMPLETE BLOOD COUNT AND DIFFERENTIAL: Result Value Ref Range WBC 45.48 (H) 3.70 - 11.00 k/uL RBC (more content not included)... Normal [facility] Lipase SerPl-cCncon 06-08-20 24 Lipase [Catalytic activity/Vol] 29 U/L Normal 16-61 [facility] Comment on above: Order Comment: Speci men Type: BLOOD SPECIMENOrdering Facility: [facility] Address: [address] [place] [address] Performed By: #### 2 4323-8, 3040-3, ####K[facility]WO[facility] LABORATORYCLIA [id number] [place] [address] [place] Magnesium SerPl-mCncon 06-08 Magnesium [Mass/Vol] 1.5 mg/dL Low 1.7-2.3 [facility] Comment on above: Order Comment: Speci men Type: BLOOD SPECIMENOrdering Facility: [facility] Address: [address] [place] [address] Performed By: #### 2 4323-8, 3040-3, ####KENTWO[facility] LABORATORYCLIA [id number] [place] [id number] [place] Urinalysis complete panel (U )on 06-08-2024 Bacteria LM.HPF (Urine sed) [#/Area] Few Abnormal None Seen [facility] Comment on above: Order Comment: Speci men Type: URINE SPECIMENOrdering Facility: [facility] Address: [address] [place] [address] Performed By: #### 2 4356-8 ####CASAS LABORATORYCLIA [id number] [place] [address] [place] Bilirubin Ql (U) Negative Normal Negative [facility] Comment on above: Order Comment: Speci men Type: URINE SPECIMENOrdering Facility: [facility] Address: [address] [place] [address] Performed By: #### 2 4356-8 ####CASAS LABORATORYCLIA [id number] [address] [place] Clarity (Unsp spec) Clear Normal Clear [facility] Comment on above: Order Comment: Speci men Type: URINE SPECIMENOrdering Facility: [facility] Address: [address] [place] [address] Performed By: #### 2 4356-8 ####CASAS LABORATORYCLIA [id number] [address] Color (U) Yellow Normal Yellow [facility] Comment on above: Order Comment: Speci men Type: URINE SPECIMENOrdering Facility: [facility] Address: [address] [place] [address] Performed By: #### 2 4356-8 ####CASAS LABORATORYCLIA [id number] [address] Epithelial cells LM.HPF (Urine sed) [#/Area] Few Abnormal None Seen [facility] Comment on above: Order Comment: Speci men Type: URINE SPECIMENOrdering Facility: [facility] Address: [address] [place] [address] Performed By: #### 2 4356-8 ####CASAS LABORATORYCLIA [id number] [place] [address] [place] Glucose Test strip (U) [Mass/Vol] 3+ Abnormal Negative [facility] Comment on above: Order Comment: Speci men Type: URINE SPECIMENOrdering Facility: [facility] Address: [address] [place] [address] Performed By: #### 2 4356-8 ####CASAS LABORATORYCLIA [id number] [place] [address] [place] Hemoglobin Ql (U) Trace Abnormal Negative [facility] Comment on above: Order Comment: Speci men Type: URINE SPECIMENOrdering Facility: [facility] Address: [address] [place] [address] Performed By: #### 2 4356-8 ####CASAS LABORATORYCLIA [id number] [place] [address] [place] Ketones Ql (U) 1+ Abnormal Negative [facility] Comment on above: Order Comment: Speci men Type: URINE SPECIMENOrdering Facility: [facility] Address: [address] [place] [address] Performed By: #### 2 4356-8 ####CASAS LABORATORYCLIA [id number] [address] [place] Leukocyte esterase Test strip Ql (U) Negative Normal Negative [facility] Comment on above: Order Comment: Speci men Type: URINE SPECIMENOrdering Facility: [facility] Address: [address] [place] [address] Performed By: #### 2 4356-8 ####CASAS LABORATORYCLIA [id number] [place] [address] [place] Nitrite Ql (U) Negative Normal Negative [facility] Comment on above: Order Comment: Speci men Type: URINE SPECIMENOrdering Facility: [facility] Address: [address] [place] [address] Performed By: #### 2 4356-8 ####CASAS LABORATORYCLIA [id number] [place] [address] [place] pH (U) 6.5 [pH] Normal 5.0-8.0 [facility] Comment on above: Order Comment: Speci men Type: URINE SPECIMENOrdering Facility: [facility] Address: [address] [place] [address] Performed By: #### 2 4356-8 ####CASAS LABORATORYCLIA [id number] [place] [address] [place] Protein (U) [Mass/Vol] Negative Normal Negative [facility] Comment on above: Order Comment: Speci men Type: URINE SPECIMENOrdering Facility: [facility] Address: [address] [place] [address] Performed By: #### 2 4356-8 ####CASAS LABORATORYCLIA [id number] [address] STATES [facility] RBC LM.HPF (Urine sed) [#/Area] 0-3 /HPF Normal 0-3 /HPF [facility] Comment on above: Order Comment: Speci men Type: URINE SPECIMENOrdering Facility: [facility] Address: [address] [place] [address] Performed By: #### 2 4356-8 ####CASAS LABORATORYCLIA [id number] [address] Specific gravity (U) [Rel density] 1.010 Normal 1.005-1.030 [facility] Comment on above: Order Comment: Speci men Type: URINE SPECIMENOrdering Facility: [facility] Address: [address] [place] [address] Performed By: #### 2 4356-8 ####CASAS LABORATORYCLIA [id number] [address] Urobilinogen Ql (U) 0.2 EU/dL Normal 0.2-1.0 EU/dL [facility] Comment on above: Order Comment: Speci men Type: URINE SPECIMENOrdering Facility: [facility] Address: [address] [place] [address] Performed By: #### 2 4356-8 ####CASAS LABORATORYCLIA [id number] [address] STATES [facility] WBC LM.HPF (Urine sed) [#/Area] 6-10 /HPF Abnormal 0-5 /HPF [facility] Comment on above: Order Comment: Speci men Type: URINE SPECIMENOrdering Facility: [facility] Address: [address] [place] [address] Performed By: #### 2 4356-8 ####CASAS LABORATORYCLIA [id number] [address] [place] Basic metabolic 2000 panelon 05-25-2024 Anion gap [Moles/Vol] 7 mmol/L Low 8-15 [facility] Comment on above: Order Comment: Speci men Type: BLOOD SPECIMENOrdering Facility: [facility] Address: [address] [place] [address] [place] [address] Performed By: #### 2 4321-2 ####CASAS LABORATORYCLIA [id number] [place] [address] [place] Calcium [Mass/Vol] 8.1 mg/dL Low 8.5-10.2 [facility] Comment on above: Order Comment: Speci men Type: BLOOD SPECIMENOrdering Facility: [facility] Address: [address] [place] [address] Performed By: #### 2 4321-2 ####CASAS LABORATORYCLIA [id number] [place] [address] [place] [facility] [place] Chloride [Moles/Vol] 103 mmol/L Normal 98-107 [facility] Comment on above: Order Comment: Speci men Type: BLOOD SPECIMENOrdering Facility: [facility] Address: [address] [place] [address] Performed By: #### 2 4321-2 ####CASAS LABORATORYCLIA [id number] [place] [address] [place] CO2 [Moles/Vol] 24 mmol/L Normal 22-30 [facility] Comment on above: Order Comment: Speci men Type: BLOOD SPECIMENOrdering Facility: [facility] Address: [address] [place] [address] Performed By: #### 2 4321-2 ####CASAS LABORATORYCLIA [id number] [address] [place] Creatinine [Mass/Vol] 0.69 mg/dL Normal 0.58-0.96 [facility] Comment on above: Order Comment: Speci men Type: BLOOD SPECIMENOrdering Facility: [facility] Address: [address] [place] [address] Performed By: #### 2 4321-2 ####CASAS LABORATORYCLIA [id number] [address] [place] Creatinine and Glomerular filtration rate.predicted panel (S/P/Bld) 92 mL/min/1.73m??? Normal >=60 [facility] Comment on above: Order Comment: Cailin bryan Type: BLOOD SPECIMENOrdering Facility: [facility] Address: [address] [place] [id number] Result Comment: Amarjit mated Glomerular Filtration Rate (eGFR) is calculated using the 2020 CKD-EPI creatinine equation. This equation utilizes serum creatinine, sex, and age as parameters. The creatinine assay has traceable calibration to isotope dilution-mass spectrometry. Refer to KDIGO guidelines for clinical interpretation. In patients with unstable renal function, e.g. those with acute kidney injury, the eGFR may not accurately reflect actual GFR. Performed By: #### 2 4321-2 ####K[facility] LABORATORYCLIA [id number] [place] [id number] [place] Glucose [Mass/Vol] 135 mg/dL High 74-99 [facility] Comment on above: Order Comment: Cailin bryan Type: BLOOD SPECIMENOrdering Facility: [facility] Address: [address] [place] [address] Result Comment: The [place] Diabetes Association (ADA) provides guidance for cutoff values for fasting glucose and random glucose. The ADA defines fasting as no caloric intake for at least 8 hours. Fasting plasma glucose results between 100 to 125 mg/dL indicate increased risk for diabetes (prediabetes). Fasting plasma glucose results greater than or equal to 126 mg/dL meet the criteria for diagnosis of diabetes. In the absence of unequivocal hyperglycemia, results should be confirmed by repeat testing. In a patient with classic symptoms of hyperglycemia or hyperglycemic crisis, random plasma glucose results greater than or equal to 200 mg/dL meet the criteria for diagnosis of diabetes. Reference: Standards of Medical Care in Diabetes 2016, [place] [employer]. Diabetes Care. 2016.39(Suppl 1). Performed By: #### 2 4321-2 ####[facility] LABORATORYCLIA [id number] [place] [address] [place] Potassium [Moles/Vol] 3.1 mmol/L Low 3.7-5.1 [facility] Comment on above: Order Comment: Cailin bryan Type: BLOOD SPECIMENOrdering Facility: [facility] Address: [address] [place] [address] Performed By: #### 2 4321-2 ####CASAS LABORATORYCLIA [id number] [address] [place] Sodium [Moles/Vol] 134 mmol/L Low 136-144 [facility] Comment on above: Order Comment: Speci men Type: BLOOD SPECIMENOrdering Facility: [facility] Address: [address] [place] [address] Performed By: #### 2 4321-2 ####[facility] LABORATORYCLIA [id number] [address] STATES [facility] Urea nitrogen [Mass/Vol] 11 mg/dL Normal 7-21 [facility] Comment on above: Order Comment: Speci men Type: BLOOD SPECIMENOrdering Facility: [facility] Address: [address] [place] [address] Performed By: #### 2 4321-2 ####CASAS LABORATORYCLIA [id number] [address] CBC panel Auto (Bld)on 05-25 Erythrocyte distribution width (RBC) [Ratio] 17.0 % High 11.5-15.0 [facility] Comment on above: Order Comment: Speci men Type: BLOOD SPECIMENOrdering Facility: [facility] Address: [address] [place] [address] Performed By: #### 5 8410-2 ####CASAS LABORATORYCLIA [id number] [address] Hematocrit (Bld) [Volume fraction] 30.0 % Low 36.0-46.0 [facility] Comment on above: Order Comment: Speci men Type: BLOOD SPECIMENOrdering Facility: [facility] Address: [address] [place] [address] Performed By: #### 5 8410-2 ####CASAS LABORATORYCLIA [id number] [address] STATES [facility] Hemoglobin (Bld) [Mass/Vol] 10.4 g/dL Low 11.5-15.5 [facility] Comment on above: Order Comment: Speci men Type: BLOOD SPECIMENOrdering Facility: [facility] Address: [address] [place] [address] Performed By: #### 5 8410-2 ####CASAS LABORATORYCLIA [id number] [address] MCH (RBC) [Entitic mass] 32.5 pg Normal 26.0-34.0 [facility] Comment on above: Order Comment: Speci men Type: BLOOD SPECIMENOrdering Facility: [facility] Address: [address] [place] [address] Performed By: #### 5 8410-2 ####CASAS LABORATORYCLIA [id number] [address] MCHC (RBC) [Mass/Vol] 34.7 g/dL Normal 30.5-36.0 [facility] Comment on above: Order Comment: Speci men Type: BLOOD SPECIMENOrdering Facility: [facility] Address: [address] [place] [address] Performed By: #### 5 8410-2 ####CASAS LABORATORYCLIA [id number] [address] MCV (RBC) [Entitic vol] 93.8 fL Normal 80.0-100.0 [facility] Comment on above: Order Comment: Speci men Type: BLOOD SPECIMENOrdering Facility: [facility] Address: [address] [place] [address] Performed By: #### 5 8410-2 ####CASAS LABORATORYCLIA [id number] [address] Nucleated RBC (Bld) [#/Vol] 10*3/uL Normal <0.01 [facility] Comment on above: Order Comment: Speci men Type: BLOOD SPECIMENOrdering Facility: [facility] Address: [address] [place] [address] Performed By: #### 5 8410-2 ####CASAS LABORATORYCLIA [id number] [address] Platelet mean volume (Bld) [Entitic vol] 11.0 fL Normal 9.0-12.7 [facility] Comment on above: Order Comment: Speci men Type: BLOOD SPECIMENOrdering Facility: [facility] Address: [address] [place] [address] Performed By: #### 5 8410-2 ####CASAS LABORATORYCLIA [id number] [address] [place] Platelets (Bld) [#/Vol] 228 10*3/uL Normal 150-400 [facility] Comment on above: Order Comment: Speci men Type: BLOOD SPECIMENOrdering Facility: [facility] Address: [address] [place] [address] Performed By: #### 5 8410-2 ####[facility] LABORATORYCLIA [id number] [place] [address] [place] RBC (Bld) [#/Vol] 3.20 10*6/uL Low 3.90-5.20 [facility] Comment on above: Order Comment: Speci men Type: BLOOD SPECIMENOrdering Facility: [facility] Address: [facility] [place] [address] Performed By: #### 5 8410-2 ####[facility] LABORATORYCLIA [id number] [address] [place] WBC (Bld) [#/Vol] 37.99 10*3/uL High 3.70-11.00 [facility] Comment on above: Order Comment: Speci men Type: BLOOD SPECIMENOrdering Facility: [facility] Address: [address] [place] [address] Performed By: #### 5 8410-2 ####CAS[facility] LABORATORYCLIA [id number] [place] [id number] [facility] CNDSon 05-25-2024 CNDS HNO ID: [id number] Author: ABHI CORBIN MD Service: Hospital Medicine Author Type: Physician Type: Discharge Summary Filed: 05/25/2024 11:08 Note Text: DISCHARGE SUMMARY PATIENT NAME: Marilia Guzman Code Status: Full Code Highest Readmission Risk Score: 18 The 30 day readmissions risk score is derived from an internally validated risk model which evaluates patient level characteristics, utilization history, medication orders and lab results up until the day of discharge. Patients with a score of 40 or above are considered highest risk for readmission. Specific patient level drivers will be listed at the bottom of the summary. Admission Information Admission Information ADMIT DATE: 05/24/2024 DISCHARGE DATE: 05/25/24 MY DOCTORS AND MEDICAL TEAM: My Main Hospital Doctor: Abhi Corbin MD Primary Care Provider: Chandler Calzada APRN.OUTSIDE INDUSTRIAL SALES REPRESENTATIVE My Medical Team Members: Treatment Team: Attending Provider: Abhi Corbin MD MY CONDITION AT DISCHARGE: Stable REASON I WAS IN THE HOSPITAL: Dehydration and abnormal electrolytes from cancer therapy. You got better with IV fluids and electrolyte replacement. Take a daily magnesium supplement. Take 40 mEq potassium tonight and then 20 mEq potassium daily for maintaining this electrolyte. Your white blood cell count is high because of dehydration. We don't see a pneumonia, urine infection, or skin infection. However, if your blood samples grow bacteria in the next 48 hrs, we will call you with further instructions. SUMMARY OF WHAT HAPPENED WHILE I WAS IN THE HOSPITAL: see above OTHER PROBLEMS/DIAGNOSIS: Principal Problem: Hypokalemia Resolved Problems: * No resolved hospital problems. * OPERATIONS PERFORMED WHILE IN THE HOSPITAL: None IMPORTANT TEST/PROCEDURES: No procedures performed TEST RESULTS NOT AVAILABLE AT THIS TIME: No pending results Discharge Disposition Discharge Disposition: Home With Self Care Follow Up Appointments Follow-Up Appointment With: Patient's primary care physician When: In: Patient/Parents to call for appointment?: Yes 1st available, usual location Additional Provider to Provider Information: Ms. Guzman, your 73 years have been affected by DM2 HTN and CLL currently on chemo with recent infusion 05/16 . You presented to the hospital with fatigue/weakness/light headedness with finding of NATALIYA and hypovolemia with hypo K/Mg and metabolic acidosis which improved with IV sodium bicarb and electrolyte replacement. DC on K and Mg supplements. WBC count higher than usual suspected to be hemoconcentration. Likewise, lactate elevated from hypovolemia .CXR fine, urinalysis without signs of infection and no skin infection or leakage around port. Blood cultures pending. She has no infection symptoms and feels back to normal after volume/lyte replacement Transitions of Care Critical Issues: SANCHEZ MEDICATION CHANGES: see med list LABS AND PROCEDURES PENDING AT DISCHARGE: No pending results. FOLLOW-UP APPOINTMENTS ALREADY SCHEDULED WITH A [facility] PROVIDER: No future appointments. ALLERGIES No Known Allergies DISCHARGE MEDICATION: Medication List START taking these medications magnesium oxide 400 mg (241.3 mg magnesium) tablet Commonly known as: MAG-OX Take 2 tablets by mouth once daily. potassium chloride 20 mEq Tber Take 1 tablet by mouth once daily. Take 2 tablets on evening of 05/25 and then 1 tablet daily thereafter CONTINUE taking these medications empagliflozin 25 mg tablet Commonly known as: JARDIANCE IMODIUM A-D 2 mg Tab Generic drug: loperamide HCl LomotiL 2.5-0.025 mg per tablet Generic drug: diphenoxylate-atropine losartan-hydroCHLOROth iazide 50-12.5 mg per tablet Commonly known as: HYZAAR metFORMIN 500 mg tablet Commonly known as: GLUCOPHAGE pantoprazole DR 40 mg tablet Commonly known as: PROTONIX simvastatin 20 mg tablet Commonly known as: ZOCOR Where to Get Your Medications These medications were sent to [id number] - [place] [address] [address] - [phone] [facility] [address] magnesium oxide 400 mg (241.3 mg magnesium) tablet potassium chloride 20 mEq Tber Physical Exam Constitutional: General: She is not in acute distress. Appearance: She is not diaphoretic. HENT: Head: Normocephalic. Cardiovascular: Rate and Rhythm: Normal rate. Pulmonary: Effort: Pulmonary effort is normal. Abdominal: General: There is no distension. Palpations: Abdomen is soft. Skin: General: Skin is warm. Comments: R chemo port intact Neurological: Mental Status: She is alert. The patient's risk for 30-day readmission is determined using the following contributing factors: Pt variables contributing to increased readmission risk: 24 Active Medication Orders 11 Most Recent BUN Result 9.3 First Resulted Calcium During Admission 1 Previ (more content not included)... Normal [facility] 05-24-2024 ALLIED HEALTH HNO ID: [id number] Author: JAYE HERNÁNDEZ CT Service: Radiology Author Type: Technologist Type: Allied Health Filed: 05/24/2024 15:38 Note Text: Radiology Service Progress Note PATIENT NAME: Marilia Guzman DATE OF SERVICE: May 24, 2024 TIME: 3:38 PM PATIENT IDENTITY VERIFICATION COMPLETED USING TWO (2) IDENTIFIERS: Name and Date of confirmed by patient verbally. FALL SCREENING: Has the patient had 2 falls in the last year or 1 fall with injury or currently using an Ambulatory Assistive Device (Walker, Cane, Wheelchair, Crutches, etc.)? Emergency Room Patient: Screened in ED PATIENT GENDER DATA: Female. status: : No status: NO. PATIENT RELEVANT IMPLANT DATA REVIEWED: Not Applicable PATIENT PRESENTS WITH AN IMPLANTABLE OR ATTACHED TUBE SORTER: No RADIOLOGY DEPARTMENT: General X-ray: Exam(s) Completed: Chest X-Ray PERIPHERAL IV DATA: Not applicable SIGNED BY: JASSI Cosby May 24, 2024 3:38 PM [facility] Bacteria Bld Culton 05-24-20 24 Bacteria identified Cx Nom (Bld) CULTURE, BLOOD: No growth 5 days Normal [facility] Comment on above: Performed By: #### 6 00-7 ####[facility] LABCLIA [id number] [place] [address] [place] Bacteria identified Cx Nom (Bld) CULTURE, BLOOD: No growth 5 days GRAM STAIN: This blood culture had less than the recommended 8 ml per bottle, which could decrease the sensitivity of the test. Normal [facility] Comment on above: Performed By: #### 6 00-7 ####[facility] LABCLIA [id number] [place] [address] [place] CBC W Auto Differential pane l (Bld)on 05-24-2024 Basophils (Bld) [#/Vol] 0.00 10*3/uL Normal <0.11 [facility] Comment on above: Order Comment: Speci men Type: BLOOD SPECIMENOrdering Facility: [facility] Address: [address] [place] [address] Performed By: #### 5 7021-8 ####[facility] [id number] [place] [address] [place] Basophils/100 WBC (Bld) 0.0 % Normal [facility] Comment on above: Order Comment: Speci men Type: BLOOD SPECIMENOrdering Facility: [facility] Address: [address] [place] [address] Performed By: #### 5 7021-8 ####[facility] [id number] [address] [place] Differential cell count method Nom (Bld) Manual Normal [facility] Comment on above: Order Comment: Speci men Type: BLOOD SPECIMENOrdering Facility: [facility] Address: [address] [place] [address] Performed By: #### 5 7021-8 ####[facility]ORYCLIA [id number] [place] [address] [place] Eosinophils (Bld) [#/Vol] 0.00 10*3/uL Normal <0.46 [facility] Comment on above: Order Comment: Speci men Type: BLOOD SPECIMENOrdering Facility: [facility] Address: [address] [place] [address] Performed By: #### 5 7021-8 ####[facility]ORY[facility] [id number] [address] [place] Eosinophils/100 WBC (Bld) 0.0 % Normal [facility] Comment on above: Order Comment: Speci men Type: BLOOD SPECIMENOrdering Facility: [facility] Address: [address] [place] [address] Performed By: #### 5 7021-8 ####[facility]ORYCLIA [id number] [address] [place] Erythrocyte distribution width (RBC) [Ratio] 16.8 % High 11.5-15.0 [facility] Comment on above: Order Comment: Speci men Type: BLOOD SPECIMENOrdering Facility: [facility] Address: [address] [place] [address] Performed By: #### 5 7021-8 ####[facility]ORYCLIA [id number] [address] [place] Hematocrit (Bld) [Volume fraction] 35.2 % Low 36.0-46.0 [facility] Comment on above: Order Comment: Speci men Type: BLOOD SPECIMENOrdering Facility: [facility] Address: [address] [place] [address] Performed By: #### 5 7021-8 ####[facility]ORYCLIA [id number] [address] [place] Hemoglobin (Bld) [Mass/Vol] 12.3 g/dL Normal 11.5-15.5 [facility] Comment on above: Order Comment: Speci men Type: BLOOD SPECIMENOrdering Facility: [facility] Address: [address] [place] [address] Performed By: #### 5 7021-8 ####[facility]ORYCLIA [id number] [place] [address] [place] Lymphocytes (Bld) [#/Vol] 4.14 10*3/uL High 1.00-4.00 [facility] Comment on above: Order Comment: Speci men Type: BLOOD SPECIMENOrdering Facility: [facility] Address: [address] [place] [address] Performed By: #### 5 7021-8 ####[facility]ORYCLIA [id number] [address] Lymphocytes/100 WBC (Bld) 9.0 % Normal [facility] Comment on above: Order Comment: Speci men Type: BLOOD SPECIMENOrdering Facility: [facility] Address: [address] [place] [address] Performed By: #### 5 7021-8 ####[facility]ORYCLIA [id number] [address] MCH (RBC) [Entitic mass] 32.5 pg Normal 26.0-34.0 [facility] Comment on above: Order Comment: Speci men Type: BLOOD SPECIMENOrdering Facility: [facility] Address: [address] [place] [address] Performed By: #### 5 7021-8 ####[facility]ORYCLIA [id number] [address] MCHC (RBC) [Mass/Vol] 34.9 g/dL Normal 30.5-36.0 [facility] Comment on above: Order Comment: Speci men Type: BLOOD SPECIMENOrdering Facility: [facility] Address: [address] [place] [address] Performed By: #### 5 7021-8 ####[facility]ORYCLIA [id number] [address] MCV (RBC) [Entitic vol] 93.1 fL Normal 80.0-100.0 [facility] Comment on above: Order Comment: Speci men Type: BLOOD SPECIMENOrdering Facility: [facility] Address: [address] [place] [address] Performed By: #### 5 7021-8 ####[facility]ORYCLIA [id number] [address] Metamyelocytes/100 WBC (Bld) 1.0 % Normal [facility] Comment on above: Order Comment: Speci men Type: BLOOD SPECIMENOrdering Facility: [facility] Address: [address] [place] [address] Performed By: #### 5 7021-8 ####[facility]ORYCLIA [id number] [address] Monocytes (Bld) [#/Vol] 3.68 10*3/uL High <0.87 [facility] Comment on above: Order Comment: Speci men Type: BLOOD SPECIMENOrdering Facility: [facility] Address: [address] [place] [address] Performed By: #### 5 7021-8 ####[facility]ORYCLIA [id number] [address] Monocytes/100 WBC (Bld) 8.0 % Normal [facility] Comment on above: Order Comment: Speci men Type: BLOOD SPECIMENOrdering Facility: [facility] Address: [address] [place] [address] Performed By: #### 5 7021-8 ####[facility]ORYCLIA [id number] [address] MYELO% 1.0 % Normal [facility] Comment on above: Order Comment: Speci men Type: BLOOD SPECIMENOrdering Facility: [facility] Address: [address] [place] [address] Performed By: #### 5 7021-8 ####[facility]ATORYCLIA [id number] [place] [address] [place] Neutrophils (Bld) [#/Vol] 37.23 10*3/uL High 1.45-7.50 [facility] Comment on above: Order Comment: Speci men Type: BLOOD SPECIMENOrdering Facility: [facility] Address: [address] [place] [address] Performed By: #### 5 7021-8 ####[facility]ATORYCLIA [id number] [place] [address] [place] Neutrophils/100 WBC (Bld) 81.0 % Normal [facility] Comment on above: Order Comment: Speci men Type: BLOOD SPECIMENOrdering Facility: [facility] Address: [address] [place] [address] Performed By: #### 5 7021-8 ####[facility]ATORYCLIA [id number] [place] [address] [place] Nucleated RBC (Bld) [#/Vol] 10*3/uL Normal <0.01 [facility] Comment on above: Order Comment: Speci men Type: BLOOD SPECIMENOrdering Facility: [facility] Address: [address] [place] [address] Performed By: #### 5 7021-8 ####[facility]ORYCLIA [id number] [address] [place] Nucleated RBC/100 WBC (Bld) [Ratio] 0.0 /100 WBC Normal [facility] Comment on above: Order Comment: Speci men Type: BLOOD SPECIMENOrdering Facility: [facility] Address: [address] [place] [address] Performed By: #### 5 7021-8 ####[facility]ATORYCLIA [id number] [place] [address] [place] Platelet mean volume (Bld) [Entitic vol] 11.3 fL Normal 9.0-12.7 [facility] Comment on above: Order Comment: Speci men Type: BLOOD SPECIMENOrdering Facility: [facility] Address: [address] [place] [address] Performed By: #### 5 7021-8 ####[facility]ORATORYCLIA [id number] [place] [address] [place] [facility] [place] Platelets (Bld) [#/Vol] 271 10*3/uL Normal 150-400 [facility] Comment on above: Order Comment: Speci men Type: BLOOD SPECIMENOrdering Facility: [facility] Address: [address] [place] [address] Performed By: #### 5 7021-8 ####[facility]ATORYCLIA [id number] [place] [address] [facility] [place] Platelets Estimate (Bld) [#/Vol] Adequate Normal [facility] Comment on above: Order Comment: Speci men Type: BLOOD SPECIMENOrdering Facility: [facility] Address: [address] [place] [address] Performed By: #### 5 7021-8 ####[facility]ATORYCLIA [id number] [place] [address] [place] RBC (Bld) [#/Vol] 3.78 10*6/uL Low 3.90-5.20 [facility] Comment on above: Order Comment: Speci men Type: BLOOD SPECIMENOrdering Facility: [facility] Address: [address] [place] [address] Performed By: #### 5 7021-8 ####[facility]ORATORYCLIA [id number] [place] [id number] [facility] RED CELL MORPH Reviewed: unremarkable Normal [facility] Comment on above: Order Comment: Speci men Type: BLOOD SPECIMENOrdering Facility: [facility] Address: [address] [place] [address] Performed By: #### 5 7021-8 ####[facility]ATORYCLIA [id number] [place] [id number] [facility] [place] WBC (Bld) [#/Vol] 45.96 10*3/uL High 3.70-11.00 [facility] Comment on above: Order Comment: Speci men Type: BLOOD SPECIMENOrdering Facility: [facility] Address: [address] [place] [address] Performed By: #### 5 7021-8 ####[facility]ORYCLIA [id number] [place] [id number] [facility] WBC Left Shift Ql (Bld) Present Normal [facility] Comment on above: Order Comment: Speci men Type: BLOOD SPECIMENOrdering Facility: [facility] Address: [facility] [place] [address] Performed By: #### 5 7021-8 ####[facility]ATORYCLIA [id number] [place] [id number] [facility] CONSULT PROGon 05-24-2024 CONSULT PROG HNO ID: [id number] Author: DMITRY OLVERA RPh Service: Pharmacy Author Type: Pharmacist Type: Consult Progress Note Filed: 05/24/2024 22:39 Note Text: PHARMACY VANCOMYCIN DOSING NOTE Patient Name: Marilia Guzman Admission Date: 05/24/2024 Date of Consult: 05/24/2024 Time of Consult: 10:36 PM Indication: Source unknown; empiric Goal Range: 15-20 mcg/mL RECOMMENDATIONS/PLAN: Pharmacy consulted for vancomycin dosing for Marilia Guzman, a 73 year old female. 1. Patient is currently ordered vancomycin 750 mg IV once, Vancomycin Dosing AND Monitoring per Pharmacy. Today is day 1 of therapy. (Patient received Vancomycin 750mg x 1 dose at 18:09 on 05/24/24 in [place] ER) 2. No vancomycin level has been drawn for this dosing regimen. 3. Will schedule vancomycin to 750 mg with a dosing interval of q24h.based on CrCl of 38.3 4. The next vancomycin level will be ordered for 05/27/24 unless clinically indicated sooner. (Pharmacy will order) We will follow patient renal function, vancomycin levels and doses with you during the course of therapy. Additional recommendations will appear in follow up notes. If you have any questions, please contact Pharmacy at [phone]. Age: [age] year old Allergies: ALLERGIES No Known Allergies Last 3 Encounter Wt Readings: Date: Wt: 05/24/2024 57.1 kg (125 lb 14.1 oz) 07/17/2021 62.6 kg (138 lb) 03/12/2011 69.9 kg (154 lb) Last 1 Encounter Ht Readings: Date: Ht: 05/24/2024 157.5 cm (5' 2) CrCl: 38.3 mL/min (> 50 mL/min) Temp (24hrs), Av.4 ?C (97.5 ?F), Min:36.2 ?C (97.1 ?F), Max:36.6 ?C (97.9 ?F) - Current Temp: 36.4 ?C (97.5 ?F) Labs BUN (mg/dL) Date Value 05/24/2024 21 07/03/2014 13 Creatinine (mg/dL) Date Value 05/24/2024 1.05 (H) 07/03/2014 0.73 WBC (k/uL) Date Value 05/24/2024 45.96 (H) 07/03/2014 9.78 Vancomycin Levels: No results found for: KATELYN Olvera [facility] Normal [facility] Comprehensive metabolic 2000 panelon 05-24-2024 Albumin [Mass/Vol] 4.2 g/dL Normal 3.9-4.9 [facility] Comment on above: Order Comment: Speci men Type: BLOOD SPECIMEN [facility] Address: [address] [place] [address] Performed By: #### L [id number], , #### [facility] CLIA [id number] [address] [place] [address] [place] ALP [Catalytic activity/Vol] 206 U/L High 34-123 [facility] Comment on above: Order Comment: Speci men Type: BLOOD SPECIMEN [facility] Address: [address] [place] [address] Performed By: #### L [id number], , #### [facility] CLIA [id number] [address] [place] [address] [place] ALT [Catalytic activity/Vol] 15 U/L Normal 7-38 [facility] Comment on above: Order Comment: Speci men Type: BLOOD SPECIMEN [facility] Address: [address] [place] [address] Performed By: #### L [id number], , #### [facility] CLIA [id number] [address] [place] [address] [place] Anion gap [Moles/Vol] 18 mmol/L High 8-15 [facility] Comment on above: Order Comment: Speci men Type: BLOOD SPECIMEN [facility] Address: [address] [place] [address] Performed By: #### L [id number], , #### [facility] CLIA [id number] [address] [place] [address] [place] AST [Catalytic activity/Vol] 23 U/L Normal 13-35 [facility] Comment on above: Order Comment: Speci men Type: BLOOD SPECIMEN [facility] Address: [address] [place] [address] Performed By: #### L [id number], , #### [facility] CLIA [id number] [address] [place] [address] [place] Bilirubin [Mass/Vol] 0.4 mg/dL Normal 0.2-1.3 [facility] Comment on above: Order Comment: Speci men Type: BLOOD SPECIMEN [facility] Address: [address] [place] [address] Performed By: #### L [id number], , #### [facility] CLIA [id number] [address] [place] [address] [place] Calcium [Mass/Vol] 9.3 mg/dL Normal 8.5-10.2 [facility] Comment on above: Order Comment: Speci men Type: BLOOD SPECIMEN [facility] Address: [address] [place] [address] Performed By: #### L [id number], , #### [facility] CLIA [id number] [address] [place] [address] [place] Chloride [Moles/Vol] 97 mmol/L Low 98-107 [facility] Comment on above: Order Comment: Speci men Type: BLOOD SPECIMEN [facility] Address: [address] [place] [address] Performed By: #### L [id number], , #### [facility] CLIA [id number] [address] [place] [address] [place] CO2 [Moles/Vol] 17 mmol/L Low 22-30 [facility] Comment on above: Order Comment: Speci men Type: BLOOD SPECIMEN [facility] Address: [address] [place] [address] Performed By: #### L [id number], , #### [facility] CLIA [id number] [address] [place] [address] [place] Creatinine [Mass/Vol] 1.05 mg/dL High 0.58-0.96 [facility] Comment on above: Order Comment: Speci men Type: BLOOD SPECIMEN [facility] Address: [address] [place] [address] Performed By: #### L [id number], , #### [facility] CLIA [id number] [address] [place] [facility] Creatinine and Glomerular filtration rate.predicted panel (S/P/Bld) 57 mL/min/1.73m??? Low >=60 [facility] Comment on above: Order Comment: Speci men Type: BLOOD SPECIMEN [facility] Address: [address] [place] [address] Result Comment: Amarjit mated Glomerular Filtration Rate (eGFR) is calculated using the 2020 CKD-EPI creatinine equation. This equation utilizes serum creatinine, sex, and age as parameters. The creatinine assay has traceable calibration to isotope dilution-mass spectrometry. Refer to KDIGO guidelines for clinical interpretation. In patients with unstable renal function, e.g. those with acute kidney injury, the eGFR may not accurately reflect actual GFR. Performed By: #### L [id number], 63549-2, #### [facility] CLIA [id number] [address] [place] [address] [place] Glucose [Mass/Vol] 259 mg/dL High 74-99 [facility] Comment on above: Order Comment: Cailin bryan Type: BLOOD SPECIMEN [facility] Address: [address] [place] [address] Result Comment: The [place] [employer] (ADA) provides guidance for cutoff values for fasting glucose and random glucose. The ADA defines fasting as no caloric intake for at least 8 hours. Fasting plasma glucose results between 100 to 125 mg/dL indicate increased risk for diabetes (prediabetes). Fasting plasma glucose results greater than or equal to 126 mg/dL meet the criteria for diagnosis of diabetes. In the absence of unequivocal hyperglycemia, results should be confirmed by repeat testing. In a patient with classic symptoms of hyperglycemia or hyperglycemic crisis, random plasma glucose results greater than or equal to 200 mg/dL meet the criteria for diagnosis of diabetes. Reference: Standards of Medical Care in Diabetes 2016, [place] [employer]. Diabetes Care. 2016.39(Suppl 1). Performed By: #### L [id number], , #### [facility] CLIA [id number] [address] [place] [address] [place] Potassium [Moles/Vol] 2.7 mmol/L Low 3.7-5.1 [facility] Comment on above: Order Comment: Cailin bryan Type: BLOOD SPECIMEN [facility] Address: [address] [place], [place] [address] Performed By: #### L [id number], , #### [facility] CLIA [id number] [address] [place] [address] [place] Protein [Mass/Vol] 6.6 g/dL Normal 6.3-8.0 [facility] Comment on above: Order Comment: Cailin bryan Type: BLOOD SPECIMEN [facility] Address: [address] [place] [address] Performed By: #### L [id number], , #### [facility] CLIA [id number] [address] [place] [address] [place] Sodium [Moles/Vol] 132 mmol/L Low 136-144 [facility] Comment on above: Order Comment: Cailin bryan Type: BLOOD SPECIMEN [facility] Address: [address] [place] [address] Performed By: #### L [id number], 20758-7, 98333-4 #### [facility] CLIA [id number] [address] [place] [address] [facility] Urea nitrogen [Mass/Vol] 21 mg/dL Normal 7-21 [facility] Comment on above: Order Comment: Speci men Type: BLOOD SPECIMEN Ordering Facility: [facility] Address: [address] [place], [place] [address] Performed By: #### L [id number], 30218-0, 66036-2 #### [facility] CLIA [id number] [address] [place] [address] [facility] ED NOTEon 05-24-2024 ED NOTE HNO ID: [id number] Author: MASHA CORTEZ RN Service: ? Author Type: Registered Nurse Type: ED Notes Filed: 05/24/2024 16:39 Note Text: While obtaining blood cultures patient received a call from , states she was told WBC elevated not related to infection but history of CLL. Stated she did not need ATB. CATHY Gomez made aware of this phone call and verified through physcian note, order pending discontinue of ATB. Normal [facility] ED PROV NOTEon 05-24-2024 ED PROV NOTE HNO ID: [id number] Author: GONZALEZ CABRALES MD Service: Emergency Medicine Author Type: Physician Type: ED Provider Notes Filed: 05/24/2024 19:51 Note Text: ED Provider Note Patient Name: Marilia Guzman : 1950 SERVICE DATE: 05/24/24 History Patient presents with: Weakness Diarrhea: Pt presents to ER from home for CC increased weakness, diarrhea and electrolyte imbalance r/t chemotherapy. Last treatment was 05/16. Being treated for breast cancer. Patient is a 73-year-old female with a past medical history of type 2 diabetes, hypertension, arthritis, breast cancer, undergoing chemotherapy, last treatment was last week, presenting to the ED for complaints of weakness, dizziness. Patient states that this is normal after her chemotherapy treatments, so they schedule IV infusions and lab monitoring 1 week after. However this was unable to be completed yesterday due to the holiday. She states she has a history of low potassium levels. Patient states some lightheadedness and dizziness. No fever or chills. No cough, shortness of breath or chest pain. No abdominal pain, she has chronic nausea and diarrhea with chemotherapy. No swelling, numbness or tingling. History provided by: Patient and medical records full time staff interpreter used: No PAST MEDICAL HISTORY No date: Arthritis No date: Diabetes (HCC) No date: Hypertension PAST SURGICAL HISTORY No date: CHOLECYSTECTOMY HX No date: HYSTERECTOMY HX No family history on file. Social History Tobacco Use Smoking status: Never Smokeless tobacco: Not on file Substance and Sexual Activity Alcohol use: No Drug use: No Sexual activity: Yes control/protection: Surgical ALLERGIES No Known Allergies Review of Systems Constitutional: Positive for chills. Negative for activity change, appetite change, fatigue and fever. HENT: Negative for congestion, rhinorrhea, sinus pain, sore throat and trouble swallowing. Eyes: Negative for photophobia, redness and visual disturbance. Respiratory: Negative for cough, shortness of breath and wheezing. Cardiovascular: Negative for chest pain and leg swelling. Gastrointestinal: Positive for diarrhea and nausea. Negative for abdominal distention, abdominal pain and vomiting. Endocrine: Negative for polydipsia, polyphagia and polyuria. Genitourinary: Negative for decreased urine volume, flank pain and frequency. Musculoskeletal: Negative for arthralgias, back pain and myalgias. Skin: Negative for color change and pallor. Neurological: Positive for dizziness, weakness and light-headedness. Negative for facial asymmetry and headaches. Psychiatric/Behavioral : Negative for confusion and sleep disturbance. Physical Exam Vitals BP Pulse Temp Temp src Resp SpO2 Weight Height 05/24/24 1431 05/24/24 1431 05/24/24 1431 05/24/24 14305/24/24 14305/24/24 14305/24/24 14305/24/24 1603 (!) 83/52 (!) 91 36.6 ?C (97.9 ?F) Oral 16 100 % 54.4 kg (120 lb) 1.575 m (5' 2) Physical Exam Vitals and nursing note reviewed. Constitutional: General: She is not in acute distress. Appearance: She is ill-appearing (Patient appears weak and fatigued, and does not appear sickly). She is not diaphoretic. HENT: Head: Normocephalic and atraumatic. Eyes: Extraocular Movements: Extraocular movements intact. Pupils: Pupils are equal, round, and reactive to light. Cardiovascular: Rate and Rhythm: Normal rate and regular rhythm. Pulses: Normal pulses. Heart sounds: Normal heart sounds. Pulmonary: Effort: Pulmonary effort is normal. Breath sounds: Normal breath sounds. Abdominal: General: Bowel sounds are normal. There is no distension. Palpations: Abdomen is soft. Tenderness: There is no abdominal tenderness. Musculoskeletal: General: No tenderness. Normal range of motion. Right lower leg: No edema. Left lower leg: No edema. Skin: General: Skin is warm and dry. Capillary Refill: Capillary refill takes less than 2 seconds. Neurological: General: No focal deficit present. Mental Status: She is alert and oriented to person, place, and time. Mental status is at baseline. Psychiatric: Mood and Affect: Mood normal. Behavior: Behavior normal. Severe Sepsis Identified Date: 05/24/24 Severe Sepsis Identified Time: 1601 Severe Sepsis Identified Date: 05/24/24 Severe Sepsis Identified Time: 1601 Diagnostic Testing ED Labs Ordered and Reviewed COMPREHENSIVE METABOLIC PANEL - Abnormal; Notable for the following components: Result Value Ref Range Alkaline Phosphatase 206 (*) 34 - 123 U/L Glucose 259 (*) 74 - 99 mg/dL Creatinine 1.05 (*) 0.58 - 0.96 mg/dL Sodium 132 (*) 136 - 144 mmol/L Potassium 2.7 (*) 3.7 - 5.1 mmol/L Chloride 97 (*) 98 - 107 mmol/L CO2 17 (*) 22 - 30 mmol/L Anion Gap 18 (*) 8 - 15 mmol/L Estimated Glomerular Filtration Rate 57 (*) >=60 mL/min/1.73m? All other components within normal limits MAGNESIUM - Abno (more content not included)... Normal [facility] EKGon 05-24-2024 Electrocardiogram Ventricular Rate : 8 2 BPM Atrial Rate : 82 BPM P-R Interval : 178 ms QRS Duration : 84 ms Q-T Interval : 406 ms QTC Calculation(Bazett) : 474 ms Calculated P [place] : 48 degrees Calculated R [place] : 41 degrees Calculated T [place] : 80 degrees SINUS RHYTHM WITH PREMATURE SUPRAVENTRICULAR COMPLEXES LOW VOLTAGE QRS SEPTAL INFARCT , AGE UNDETERMINED ABNORMAL ECG When compared with selected ECG of 25-Feb-1999 08:51, PREMATURE SUPRAVENTRICULAR COMPLEXES ARE NOW PRESENT SEPTAL INFARCT IS NOW PRESENT NONSPECIFIC T WAVE ABNORMALITY NOW EVIDENT IN LATERAL LEADS QT HAS LENGTHENED no STEMI Confirmed by MD CABRALES EDWARD.S () on 05/24/2024 4:34:41 PM NAME : MARILIA GUZMAN PID : [id number] : 1950 Gender : Female Race : ORD : Procedure Date : May 24 2024 15:32:29 Edit Date : May 24 2024 16:34:42 Diagnosis: SINUS RHYTHM WITH PREMATURE SUPRAVENTRICULAR COMPLEXES LOW VOLTAGE QRS SEPTAL INFARCT , AGE UNDETERMINED ABNORMAL ECG When compared with selected ECG of 25-Feb-1999 08:51, PREMATURE SUPRAVENTRICULAR COMPLEXES ARE NOW PRESENT SEPTAL INFARCT IS NOW PRESENT NONSPECIFIC T WAVE ABNORMALITY NOW EVIDENT IN LATERAL LEADS QT HAS LENGTHENED no STEMI Confirmed by MD CABRALES EDWARD.S () on 05/24/2024 4:34:41 PM Test Reason : Location : 1 : ER RW Overread By : MD CABRALES EDWARD.S Edited By : MD CABRALES EDWARD.Antonia Referred By : , Acquired by : , [facility] HIGH SENSITIVITY TROPONIN T (INITIAL)on 05-24-2024 Troponin T.cardiac High sensitivity method [Mass/Vol] 12 ng/L High <[address] [place] [address] Comment on above: Order Comment: Cailin bryan Type: BLOOD SPECIMEN Ordering Facility: [facility] Address: [address] [place] [address] Performed By: #### L [id number], 87299-6, 39291-2 #### [facility] CLIA [id number] [address] [place] [address] [place] HIGH SENSITIVITY TROPONIN T (SECOND)on 05-24-2024 Troponin T.cardiac High sensitivity method [Mass/Vol] 10 ng/L Normal [address] Comment on above: Order Comment: Cailin bryan Type: BLOOD SPECIMENOrdering Facility: [facility] Address: [address] [place] [address] Performed By: #### 3 3959-8, [id number] ####[facility] [id number] [place] [address] [place] HIGH SENSITIVITY TROPONIN T (THIRD) 3 HRS AFTER INITIALon 05-24-2024 Troponin T.cardiac High sensitivity method [Mass/Vol] 9 ng/L Normal <12 [facility] Comment on above: Order Comment: Speci men Type: BLOOD SPECIMENOrdering Facility: [facility] Address: [address] [place] [id number] Performed By: #### L [id number] ####[facility] [id number] [place] [address] [place] HISTORY PHYSICALon 4 HISTORY PHYSICAL HNO ID: [id number] Author: ABHI CORBIN MD Service: Hospital Medicine Author Type: Physician Type: H&P Filed: 05/24/2024 16:12 Note Text: HISTORY AND PHYSICAL EXAMINATION PRIMARY CARE PHYSICIAN: Chandler Calzada APRN.OUTSIDE INDUSTRIAL SALES REPRESENTATIVE HPI: 73 yo woman with hx of DM2 HTN and CLL currently on chemo with recent infusion 05/16 presenting with several days of fatigue nausea and poor po intake and lightheadedness without fevers chills cough sputum abd pain urinary symptoms. Has chronic diarrhea related to chemo doses but nothing new. PAST MEDICAL HISTORY No date: Arthritis No date: Diabetes (HCC) No date: Hypertension PAST SURGICAL HISTORY No date: CHOLECYSTECTOMY HX No date: HYSTERECTOMY HX No family history on file. Social History Tobacco Use Smoking status: Never Substance Use Topics Alcohol use: No Drug use: No (Not in a hospital admission) ALLERGIES No Known Allergies REVIEW OF SYSTEMS: Review of Systems Respiratory: Negative for shortness of breath. Cardiovascular: Negative for chest pain. Gastrointestinal: Negative for abdominal pain. EXAM: BP 100/68 Pulse 83 Temp 36.6 ?C (97.9 ?F) (Oral) Resp 16 Ht 157.5 cm (5' 2) Wt 54.4 kg (120 lb) SpO2 100% BMI 21.95 kg/m? Body mass index is 21.95 kg/m?. Physical Exam Constitutional: General: She is not in acute distress. Appearance: She is not diaphoretic. HENT: Head: Normocephalic. Cardiovascular: Rate and Rhythm: Normal rate. Pulmonary: Effort: Pulmonary effort is normal. Abdominal: General: There is no distension. Palpations: Abdomen is soft. Skin: General: Skin is warm. Comments: R chemo port intact Neurological: Mental Status: She is alert. DATA: Assessment: Ms. Guzman, your 73 years have been affected by DM2 HTN and CLL currently on chemo with recent infusion 05/16 . You presented to the hospital with fatigue/weakness/light headedness with finding of NATALIYA and hypovolemia with hypo K/Mg and metabolic acidosis. Will provide saline with bicarb and K as well as Mg replacement. Clinically she doesn't have infection symptoms and I think her WBC higher than usual 15-20 is from hemoconcentration. Observe off antibiotics Hold pill diuretic and pill diabetic meds. Sliding scale insulin only Problem list: NATALIYA Hypokalemia hypomagnesemia metabolic acidosis Risk: Hospitalized for renal threatening disease Leg blood clot prevention : low risk Code status: full SIGNATURE: Abhi Corbin MD DATE: 05/24/2024 TIME: 4:11 PM Normal [facility] Magnesium SerPl-mCncon 05-24 Magnesium [Mass/Vol] 1.2 mg/dL Low 1.7-2.3 [facility] Comment on above: Order Comment: Cailin bryan Type: BLOOD SPECIMEN Ordering Facility: [facility] Address: [address] [place] [address] Performed By: #### L [id number], 82708-4, 75636-4 #### [facility] CLIA [id number] [address] [place] Procalcitonin SerPl-mCncon 0 05-24-2024 Procalcitonin [Mass/Vol] 0.12 ng/mL High <0.09 [facility] Comment on above: Order Comment: Cailin bryan Type: BLOOD SPECIMENOrdering Facility: [facility] Address: [address] [place] [address] Result Comment: For a guided interpretation of test results, please visit the Change in Procalcitonin Calculator, [email or web address]. Performed By: #### 3 3959-8, [id number] ####[facility] [id number] [place] [address] [place] SEPSIS LACTATE W/ REFLEX (IN ITIAL)on 05-24-2024 Lactate [Moles/Vol] 4.4 mmol/L High 0.5-2.0 [facility] Comment on above: Order Comment: Speci men Type: BLOOD SPECIMENOrdering Facility: [facility] Address: [address] [place] [address] Performed By: #### S LACTR ####[facility] [id number] [address] SEPSIS LACTATE W/ REFLEX (SE COND)on 05-24-2024 Lactate [Moles/Vol] 3.5 mmol/L High 0.5-2.0 [facility] Comment on above: Order Comment: Speci men Type: BLOOD SPECIMEN Ordering Facility: [facility] Address: [address] [place] [address] Performed By: #### S LACT2 #### [facility] CLIA [id number] [address] Urinalysis complete panel (U )on 05-24-2024 Bacteria LM.HPF (Urine sed) [#/Area] Rare Abnormal None Seen [facility] Comment on above: Order Comment: Speci men Type: URINE SPECIMEN Ordering Facility: [facility] Address: [address] [place] [address] Performed By: #### 2 4356-8 #### [facility] CLIA [id number] [address] Bilirubin Ql (U) Negative Normal Negative [facility] Comment on above: Order Comment: Speci men Type: URINE SPECIMEN Order[facility] Facility: [facility] Address: [address] [place] [address] Performed By: #### 2 4356-8 #### [facility] CLIA [id number] [address] Clarity (Unsp spec) Clear Normal Clear [facility] Comment on above: Order Comment: Speci men Type: URINE SPECIMEN Ordering Facility: [facility] Address: [address] [place] [address] Performed By: #### 2 4356-8 #### [facility] CLIA [id number] [address] Color (U) Yellow Normal Yellow [facility] Comment on above: Order Comment: Speci men Type: URINE SPECIMEN Ordering Facility: [facility] Address: [address] [place] [address] Performed By: #### 2 4356-8 #### [facility] CLIA [id number] [address] Epithelial cells LM.HPF (Urine sed) [#/Area] Few Normal [facility] Comment on above: Order Comment: Speci men Type: URINE SPECIMEN Ordering Facility: [facility] Address: [address] [place] [address] Performed By: #### 2 4356-8 #### [facility] CLIA [id number] [address] [place] Glucose Test strip (U) [Mass/Vol] 3+ Abnormal Negative [facility] Comment on above: Order Comment: Speci men Type: URINE SPECIMEN Order[facility] Facility: [facility] Address: [address] [place] [address] Performed By: #### 2 4356-8 #### [facility] CLIA [id number] [address] [place] Hemoglobin Ql (U) Negative Normal Negative [facility] Comment on above: Order Comment: Speci men Type: URINE SPECIMEN Ordering Facility: [facility] Address: [address] [place] [address] Performed By: #### 2 4356-8 #### [facility] CLIA [id number] [address] OF [facility] Ketones Ql (U) Negative Normal Negative [facility] Comment on above: Order Comment: Speci men Type: URINE SPECIMEN Ordering Facility: [facility] Address: [address] [place] [address] Performed By: #### 2 4356-8 #### [facility] CLIA [id number] [address] Leukocyte esterase Test strip Ql (U) Negative Normal Negative [facility] Comment on above: Order Comment: Speci men Type: URINE SPECIMEN Ordering Facility: [facility] Address: [address] [place] [address] Performed By: #### 2 4356-8 #### [facility] CLIA [id number] [address] [place] [address] [place] Nitrite Ql (U) Negative Normal Negative [facility] Comment on above: Order Comment: Speci men Type: URINE SPECIMEN Ordering Facility: [facility] Address: [address] [place] [address] Performed By: #### 2 4356-8 #### [facility] CLIA [id number] [address] [place] [address] [place] pH (U) 6.0 [pH] Normal 5.0-8.0 [facility] Comment on above: Order Comment: Speci men Type: URINE SPECIMEN Order[facility] Facility: [facility] Address: [address] [place] [address] Performed By: #### 2 4356-8 #### [facility] CLIA [id number] [address] STATES [facility] Protein (U) [Mass/Vol] Negative Normal Negative [facility] Comment on above: Order Comment: Speci men Type: URINE SPECIMEN Ordering Facility: [facility] Address: [address] [place] [address] Performed By: #### 2 4356-8 #### [facility] CLIA [id number] [address] RBC LM.HPF (Urine sed) [#/Area] 0-3 /HPF Normal 0-3 /HPF [facility] Comment on above: Order Comment: Speci men Type: URINE SPECIMEN Ordering Facility: [facility] Address: [address] [place] [address] Performed By: #### 2 4356-8 #### [facility] CLIA [id number] [address] Specific gravity (U) [Rel density] 1.010 Normal 1.005-1.030 [facility] Comment on above: Order Comment: Speci men Type: URINE SPECIMEN Ordering Facility: [facility] Address: [address] [place] [address] Performed By: #### 2 4356-8 #### [facility] CLIA [id number] [address] [place] [address] [place] Urobilinogen Ql (U) 0.2 EU/dL Normal 0.2-1.0 EU/dL [facility] Comment on above: Order Comment: Speci men Type: URINE SPECIMEN Ordering Facility: [facility] Address: [address] [place] [address] Performed By: #### 2 4356-8 #### [facility] CLIA [id number] [address] [place] [address] [place] WBC LM.HPF (Urine sed) [#/Area] 0-5 /HPF Normal 0-5 /HPF [facility] Comment on above: Order Comment: Speci men Type: URINE SPECIMEN Ordering Facility: [facility] Address: [address] [place] [address] Performed By: #### 2 4356-8 #### [facility] CLIA [id number] [address] XR CHEST 2V FRONTAL/LATon XR CHEST 2V FRONTAL/LAT * * *Final Report* * * DATE OF EXAM: May 24 2024 3:10PM MDX 5291 - XR CHEST 2V FRONTAL/LAT / PROCEDURE REASON: Shortness of breath * * * * Physician Interpretation * * * * EXAMINATION: CHEST RADIOGRAPH (2 VIEW FRONTAL and LATERAL) CLINICAL HISTORY: Shortness of breath MQ: XC2_6 EXAM DATE/TIME: 05/24/2024 3:10 PM COMPARISON: Right IJ Port-A-Cath, tip overlying the distal SVC. RESULT: Lines, tubes, and devices: None. Lungs and pleura: No consolidation. No lung mass. No pleural effusion. No pneumothorax. Cardiomediastinal silhouette: Normal cardiomediastinal silhouette. Bones and soft tissues: Degenerative changes are present within the thoracic spine. IMPRESSION: No acute radiographic abnormality. Software Engineer Developer: [email or web address] Transcribe Date/Time: May 24 2024 3:41P Dictated by : CHIO GONZALEZ MD This examination was interpreted and the report reviewed and electronically signed by: CHIO GONZALEZ MD on May 24 2024 3:42PM EST [id number] Normal [facility] ECG 12 lead (Clinic Performe d)on 05-05-2024 EKG today shows norm al sinus rhythm at 75 bpm with low voltage QRS criteria for septal myocardial infarction and nonspecific ST and T wave abnormality. [facility] Work Phone: [facility] Work Phone: CBC W Auto Differential pane l (Bld)on 04-01-2024 Basophils (Bld) [#/Vol] 0.09 10*3/uL [facility] Basophils/100 WBC (Bld) 0.9 % 0.0 - 2.0 % [facility] Eosinophils (Bld) [#/Vol] 0.45 10*3/uL High [facility] Eosinophils/100 WBC (Bld) 4.6 % 0.0 - 6.0 % [facility] Erythrocyte distribution width (RBC) [Ratio] 12.4 % 11.5 - 14.5 % [facility] Hematocrit (Bld) [Volume fraction] 41.6 % 36.0 - 46.0 % [facility] Hemoglobin (Bld) [Mass/Vol] 14.1 g/dL 12.0 - 16.0 g/dL [facility] Immature granulocytes (Bld) [#/Vol] 0.05 10*3/uL [facility] Immature granulocytes/100 WBC (Bld) 0.5 % 0.0 - 0.9 % [facility] Comment on above: Immature Granulocyte Count (IG) includes promyelocytes, myelocytes and metamyelocytes but does not include bands. Percent differential counts (%) should be interpreted in the context of the absolute cell counts (cells/UL). Interpretation and review of laboratory results Abnormal [facility] Lymphocytes (Bld) [#/Vol] 3.25 10*3/uL High [facility] Lymphocytes/100 WBC (Bld) 33.3 % 13.0 - 44.0 % [facility] MCH (RBC) [Entitic mass] 30.8 pg 26.0 - 34.0 pg [facility] MCHC (RBC) [Mass/Vol] 33.9 g/dL 32.0 - 36.0 g/dL [facility] MCV (RBC) [Entitic vol] 91 fL 80 - 100 fL [facility] Monocytes (Bld) [#/Vol] 0.66 10*3/uL [facility] Monocytes/100 WBC (Bld) 6.8 % 2.0 - 10.0 % [facility] Neutrophils (Bld) [#/Vol] 5.25 10*3/uL [facility] Comment on above: Percent differential counts (%) should be interpreted in the context of the absolute cell counts (cells/uL). Neutrophils/100 WBC (Bld) 53.9 % 40.0 - 80.0 % [facility] Nucleated RBC/100 WBC (Bld) [Ratio] 0.0 % [facility] Platelets (Bld) [#/Vol] 204 10*3/uL [facility] RBC (Bld) [#/Vol] 4.58 10*6/uL [facility] WBC (Bld) [#/Vol] 9.8 10*3/uL [facility] Comprehensive metabolic 2000 panelon 04-01-2024 Albumin BCP dye [Mass/Vol] 4.2 g/dL 3.4 - 5.0 g/dL [facility] ALP [Catalytic activity/Vol] 72 U/L 33 - 136 U/L [facility] ALT With P-5'-P [Catalytic activity/Vol] 13 U/L 7 - 45 U/L [facility] Comment on above: Patients treated wit h Sulfasalazine may generate falsely decreased results for ALT. Anion gap [Moles/Vol] 14 mmol/L 10 - 2 0 mmol/L [facility] AST With P-5'-P [Catalytic activity/Vol] 15 U/L 9 - 39 U/L [facility] Bilirubin [Mass/Vol] 1.0 mg/dL 0.0 - 1 .2 mg/dL [facility] Calcium [Mass/Vol] 9.4 mg/dL 8.6 - 10. 6 mg/dL [facility] Chloride [Moles/Vol] 106 mmol/L 98 - 10 7 mmol/L [facility] CO2 [Moles/Vol] 24 mmol/L 21 - 32 mmol/L [facility] Creatinine [Mass/Vol] 0.71 mg/dL 0.50 - 1.05 mg/dL [facility] GFR/1.73 sq M.predicted among non-blacks MDRD (S/P/Bld) [Vol rate/Area] 90 mL/min/{1.73_m2} - PINF [facility] Comment on above: Calculations of amarjit mated GFR are performed using the 2020 CKD-EPI Study Refit equation without the race variable for the IDMS-Traceable creatinine methods. https://jasn.asnjournals.org/content/early/ASN.13136 63708 Glucose [Mass/Vol] 106 mg/dL High 74 - 99 mg/dL [facility] Interpretation and review of laboratory results Abnormal [facility] Potassium [Moles/Vol] 3.4 mmol/L Low 3.5 - 5.3 mmol/L [facility] Protein [Mass/Vol] 6.4 g/dL 6.4 - 8.2 g/dL [facility] Sodium [Moles/Vol] 141 mmol/L 136 - 145 mmol/L [facility] Urea nitrogen [Mass/Vol] 36 mg/dL High 6 - 23 mg/dL [facility] Guidance for placement of CV catheter with port in [place] 04-01-2024 1. Uncomplicated placement of a right infraclavicular single-lumen Mediport- 8-[place] catheter tip residing at the cavoatrial junction. 2. CT power-injection compatible Mediport. 3. MRI-compatible Mediport. 4. Optimal functioning device and ready for utilization. Performed and dictated at [facility]. MACRO: None. Signed by: Linus Calzada 04/01/2024 12:58 PM Dictation workstation: [id number] Interpreted By: Linus Calzada, STUDY: IR CVC PORT PLACEMENT; 04/01/2024 12:30 pm INDICATION: Signs/Symptoms:chemo. COMPARISON: None. ACCESSION NUMBER(S): [id number] ORDERING CLINICIAN: DIMA CAGE TECHNIQUE: INTERVENTIONALIST(S): Pieter Calzada MD CONSENT: The patient/patient's POA/next of kin was informed of the nature of the proposed procedure. The purposes, alternatives, risks, and benefits were explained and discussed. All questions were answered and consent was obtained. RADIATION EXPOSURE: Fluoroscopy time: 0.5 min Dose: 2.71 mGy Dose Area Product (DAP): 618 mGy*cm^2 SEDATION: Moderate conscious IV sedation services (supervision of administration, induction, and maintenance) were provided by the physician performing the procedure with intravenous fentanyl 50mcg and versed 1mg from 12:07 p.m.-12:40 p.m.. The physician was assisted by an independent trained observer, an interventional radiology nurse, in the continuous monitoring of patient level of consciousness and physiologic status. MEDICATION: None. TIME OUT: A time out was performed immediately prior to procedure start with the interventional team, correctly identifying the patient name, date of , MRN, procedure, anatomy (including marking of site and side), patient position, procedure consent form, relevant laboratory and imaging test results, antibiotic administration, safety precautions, and procedure-specific equipment needs. COMPLICATIONS: No immediate adverse events identified. FINDINGS: Maximum sterile barrier technique was implemented. In the recumbent position, the patient was positioned on the angiography table. The right supraclavicular and infraclavicular cutaneous tissues were prepared and draped in usual sterile manner. The supraclavicular access site was screened with pal-scale ultrasound with subsequent subcutaneous instillation of Lidocaine 1% local anesthesia. Ultrasound images demonstrate a patent right internal jugular vein. Under direct ultrasound guidance and Seldinger/micropunctur e technique, the right internal jugular vein was accessed. An ultrasound digital spot image was acquired and stored on the PACS. After confirmation of location, a 018 [place]-Mandril guidewire was inserted to secure location. The guidewire was advanced into the inferior vena cava utilizing intermittent fluoroscopy. The micro-access needle was removed over the guidewire. Utilizing a 5-on-4 coaxial dilator sheath system, upsize to a 035 3-J guidewire was performed. Subsequent access tract dilation was performed to an eventual 8.5-[place] peel-away sheath dilator system. Following Lidocaine 1% local anesthesia, a superolateral Mediport pocket was created in the subcutaneous infraclavicular chest wall. The Mediport pocket was irrigated with normal saline and prophylactic antibiotics. A subcutaneous tract was then created from the Mediport pocket to the venous access site. The 8-[place] port catheter was introduced maintaining continuity from the Mediport pocket to the venous access site and into the central venous system. An optimal length of catheter was measured with the tip at the right atrial/superior vena caval junction. The catheter was trimmed to the optimal length and the external portion was connected to the Mediport reservoir hub. After insertion into the Mediport pocket, a Hollingsworth needle was then utilized to access the reservoir to assess for leaks, evaluate for aspiration and flushability. The Mediport was then irrigated with low-dose heparinized saline. A fluoroscopic spot image of the chest was acquired in the AP projection to confirm optimal course and location of the subcutaneous port and central venous catheter. In addition, optimal orientation and continuity to the Mediport reservoir were identified. After confirmation of optimal Mediport functioning, the Mediport pocket site was closed with subcutaneous absorbable Polysorb sutures. Sterile dressings and Dermabond were then placed at the Mediport reservoir and venotomy access site. The patient tolerated the procedure without complication. [facility] Linus Calzada MD - 04/01/2024 Interpreted By: Linus Calzada, STUDY: IR CVC PORT PLACEMENT; 04/01/2024 12:30 pm INDICATION: Signs/Symptoms:chemo. COMPARISON: None. ACCESSION NUMBER(S): [id number] ORDERING CLINICIAN: DIMA CAGE TECHNIQUE: INTERVENTIONALIST(S): Pieter Calzada MD CONSENT: The patient/patient's POA/next of kin was informed of the nature of the proposed procedure. The purposes, alternatives, risks, and benefits were explained and discussed. All questions were answered and consent was obtained. RADIATION EXPOSURE: Fluoroscopy time: 0.5 min Dose: 2.71 mGy Dose Area Product (DAP): 618 mGy*cm^2 SEDATION: Moderate conscious IV sedation services (supervision of administration, induction, and maintenance) were provided by the physician performing the procedure with intravenous fentanyl 50mcg and versed 1mg from 12:07 p.m.-12:40 p.m.. The physician was assisted by an independent trained observer, an interventional radiology nurse, in the continuous monitoring of patient level of consciousness and physiologic status. MEDICATION: None. TIME OUT: A time out was performed immediately prior to procedure start with the interventional team, correctly identifying the patient name, date of , MRN, procedure, anatomy (including marking of site and side), patient position, procedure consent form, relevant laboratory and imaging test results, antibiotic administration, safety precautions, and procedure-specific equipment needs. COMPLICATIONS: No immediate adverse events identified. FINDINGS: Maximum sterile barrier technique was implemented. In the recumbent position, the patient was positioned on the angiography table. The right supraclavicular and infraclavicular cutaneous tissues were prepared and draped in usual sterile manner. The supraclavicular access site was screened with pal-scale ultrasound with subsequent subcutaneous instillation of Lidocaine 1% local anesthesia. Ultrasound images demonstrate a patent right internal jugular vein. Under direct ultrasound guidance and Seldinger/micropunctur e technique, the right internal jugular vein was accessed. An ultrasound digital spot image was acquired and stored on the PACS. After confirmation of location, a 018 [place]-Mandril guidewire was inserted to secure location. The guidewire was advanced into the inferior vena cava utilizing intermittent fluoroscopy. The micro-access needle was removed over the guidewire. Utilizing a 5-on-4 coaxial dilator sheath system, upsize to a 035 3-J guidewire was performed. Subsequent access tract dilation was performed to an eventual 8.5-[place] peel-away sheath dilator system. Following Lidocaine 1% local anesthesia, a superolateral Mediport pocket was created in the subcutaneous infraclavicular chest wall. The Mediport pocket was irrigated with normal saline and prophylactic antibiotics. A subcutaneous tract was then created from the Mediport pocket to the venous access site. The 8-[place] port catheter was introduced maintaining continuity from the Mediport pocket to the venous access site and into the central venous system. An optimal length of catheter was measured with the tip at the right atrial/superior vena caval junction. The catheter was trimmed to the optimal length and the external portion was connected to the Mediport reservoir hub. After insertion into the Mediport pocket, a Hollingsworth needle was then utilized to access the reservoir to assess for leaks, evaluate for aspiration and flushability. The Mediport was then irrigated with low-dose heparinized saline. A fluoroscopic spot image of the chest was acquired in the AP projection to confirm optimal course and location of the subcutaneous port and central venous catheter. In addition, optimal orientation and continuity to the Mediport reservoir were identified. After confirmation of optimal Mediport functioning, the Mediport pocket site was closed with subcutaneous absorbable Polysorb sutures. Sterile dressings and Dermabond were then placed at the Mediport reservoir and venotomy access site. The patient tolerated the procedure without complication. IMPRESSION: 1. Uncomplicated placement of a right infraclavicular single-lumen Mediport- 8-[place] catheter tip residing at the cavoatrial junction. 2. CT power-injection compatible Mediport. 3. MRI-compatible Mediport. 4. Optimal functioning device and ready for utilization. Performed and dictated at [facility]. MACRO: None. Signed by: Linus Calzada 04/01/2024 12:58 PM Dictation workstation: [id number] [facility] Work Phone: [facility] Work Phone: Radiology Study observation (narrative) [facility] Work Phone: HBV core Ab Ql (S)on 024 Interpretation and review of laboratory results Normal [facility] Results from patient s taking biotin supplements or receiving high-dose biotin therapy should be interpreted with caution due to possible interference with this test. Providers may contact their local laboratory for further information. [facility] HBV surface Ab Qn (S)on 03-21 Interpretation and review of laboratory results Normal [facility] HBV surface Ag IA Qlon 04-01 Interpretation and review of laboratory results Normal [facility] Hepatitis B Core Antibody, T otalon 04-01-2024 HBV core Ab Ql (S) Non-Reactive Nonreactive [facility] Hepatitis B surface antibody on 04-01-2024 HBV surface Ab Qn (S) NINF [facility] Comment on above: Interpretive Criteri a: <10 mIU/mL Nonreactive >=10 mIU/mL Reactive Biotin interference may cause falsely decreased results. Patients taking a Biotin dose of up to 5 mg/day should refrain from taking Biotin for 24 hours before sample collection. Providers may contact their local laboratory for further information. Hepatitis B surface antigeno n 04-01-2024 HBV surface Ag IA Ql Non-Reactive Nonreactive [facility] Comment on above: Biotin interference may cause falsely decreased results. Patients taking a Biotin dose of up to 5 mg/day should refrain from taking Biotin for 24 hours before sample collection. Providers may contact their local laboratory for further information. NM Whole body Bone Viewson 0 03-28-2024 1. Foci of increased radiotracer uptake in the frontal bone of calvarium, bone metastases can not be excluded, correlate with cross-sectional imaging for further evaluation is recommended. I personally reviewed the images/study and I agree with the findings as stated by Thanh Verduzco MD (resident) . This study was interpreted at [place], [place]. MACRO: None Signed by: Stefanie Carpenter 03/28/2024 2:26 PM Dictation workstation: [id number] MMODAL Interpreted By: Stefanie Carpenter, Viviana Law STUDY: NM BONE WHOLE BODY; 03/28/2024 1:46 pm INDICATION: Signs/Symptoms:breast cancer staging. Per clinical notes, diagnosed with left breast invasive ductal carcinoma with axillary gwen involvement diagnosed 02/08/2024 COMPARISON: CT chest abdomen pelvis 12/1923 ACCESSION NUMBER(S): [id number] ORDERING CLINICIAN: DIMA CAGE TECHNIQUE: DIVISION OF NUCLEAR MEDICINE BONE SCAN, WHOLE BODY plus REGIONAL VIEWS The patient received an intravenous dose of 26.0 mCi of Tc-99m MDP. Anterior and posterior images of the skeleton from skull vertex to feet were then acquired. Additional regional skeletal images were also obtained. Patient was unable to raise their arms for regional skeletal imaging. FINDINGS: Foci of increased radiotracer uptake in frontal bone of calvarium. Photopenic defect in the left knee is compatible with status post knee arthroplasty. No associated abnormal radiotracer activity. Increased radiotracer uptake is seen in the bilateral shoulders, bilateral sternoclavicular joints, right knee, bilateral mid feet, and bilateral 1st metatarsophalangeal joints, most consistent with an arthritic pattern. Heterogenously increased radiotracer activity throughout the spine is also consistent with arthritic pattern. Increased radiotracer activity in the paranasal sinus region. Expected, excreted activity is noted in the kidneys and bladder. [facility] Stefanie Carpenter MD - 03/28/2024 Interpreted By: Stefanie Carpenter and Velez-Martinez Osvaldo STUDY: NM BONE WHOLE BODY; 03/28/2024 1:46 pm INDICATION: Signs/Symptoms:breast cancer staging. Per clinical notes, diagnosed with left breast invasive ductal carcinoma with axillary gwen involvement diagnosed 02/08/2024 COMPARISON: CT chest abdomen pelvis 12/1923 ACCESSION NUMBER(S): [id number] ORDERING CLINICIAN: DIMA CAGE TECHNIQUE: DIVISION OF NUCLEAR MEDICINE BONE SCAN, WHOLE BODY plus REGIONAL VIEWS The patient received an intravenous dose of 26.0 mCi of Tc-99m MDP. Anterior and posterior images of the skeleton from skull vertex to feet were then acquired. Additional regional skeletal images were also obtained. Patient was unable to raise their arms for regional skeletal imaging. FINDINGS: Foci of increased radiotracer uptake in frontal bone of calvarium. Photopenic defect in the left knee is compatible with status post knee arthroplasty. No associated abnormal radiotracer activity. Increased radiotracer uptake is seen in the bilateral shoulders, bilateral sternoclavicular joints, right knee, bilateral mid feet, and bilateral 1st metatarsophalangeal joints, most consistent with an arthritic pattern. Heterogenously increased radiotracer activity throughout the spine is also consistent with arthritic pattern. Increased radiotracer activity in the paranasal sinus region. Expected, excreted activity is noted in the kidneys and bladder. IMPRESSION: 1. Foci of increased radiotracer uptake in the frontal bone of calvarium, bone metastases can not be excluded, correlate with cross-sectional imaging for further evaluation is recommended. I personally reviewed the images/study and I agree with the findings as stated by Thanh Verduzco MD (resident) . This study was interpreted at [place], [place]. MACRO: None Signed by: Steafnie Carpenter 03/28/2024 2:26 PM Dictation workstation: [id number] [facility] Work Phone: Radiology Study observation (narrative) [facility] Work Phone: NM Whole body Bone ViewsOrde red By: Stefanie Carpenter on 03-28-2024 [facility] Work Phone: US Heart TransthoracicOrdere d By: Linus Shelby on 03-23-2024 Aortic Valve Area by Continuity of Peak Velocity 2.79 cm2 [facility] Work Phone: AV pk grad 11.0 mmHg [facility] Work Phone: [phone] AV pk nilson 1.66 m/s [facility] Work Phone: [phone] LV A4C EF 59.8 [facility] Work Phone: [phone] LV EF 63 % [facility] Work Phone: [phone] LVIDd 4.09 cm [facility] Work Phone: [phone] LVOT diam 2.11 cm [facility] Work Phone: [phone] MV E/A ratio 0.77 [facility] Work Phone: [phone] RV free wall pk S' 10.00 cm/s [facility] Work Phone: [phone] RVSP 26.1 mmHg [facility] Work Phone: [phone] Tricuspid annular plane systolic excursion 1.7 cm [facility] Work Phone: [phone] [facility] Work Phone: Heart Transthoracicon [facility], [address] [place] [address], [address] [address] and TRANSTHORACIC ECHOCARDIOGRAM REPORT Patient Name: MARILIA Choi Physician: [id number] Linus Shelby MD Study Date: 03/23/2024 Ordering Provider: [id number] DIMA CAGE MRN/PID: [id number] Fellow: Nurse: Date of /Age: 9 1950 / 73 years Research Lab Assistant: Lina Andrew RDCS Gender: F Additional Staff: Height: 157.48 cm Admit Date: Weight: 59.87 kg Admission Status: Outpatient BSA / BMI: 1.60 m2 / 24.14 kg/m2 Blood Pressure: 121/81 mmHg Department Location: [facility] Study Type: TRANSTHORACIC ECHO (TTE) COMPLETE Diagnosis/ICD: Encounter for antineoplastic chemotherapy-Z51.11 Indication: Pre chemotherapy echo CPT Code: Echo Complete w Full Doppler-[id number] Patient History: Pertinent History: Breast CA. Study Detail: The following Echo studies were performed: 2D, M-Mode, Doppler and color flow. PHYSICIAN INTERPRETATION: Left Ventricle: The left ventricular systolic function is normal, with a visually estimated ejection fraction of 60-65%. There are no regional wall motion abnormalities. The left ventricular cavity size is normal. Spectral Doppler shows an impaired relaxation pattern of left ventricular diastolic filling. Left Atrium: The left atrium is upper limits of normal in size. Right Ventricle: The right ventricle is normal in size. There is normal right ventricular global systolic function. Right Atrium: The right atrium is normal in size. Aortic Valve: The aortic valve is trileaflet. There is no evidence of aortic valve regurgitation. The peak instantaneous gradient of the aortic valve is 11.0 mmHg. Mitral Valve: The mitral valve is mildly thickened. There is moderate mitral valve prolapse of the anterior and posterior leaflets. There is mild mitral valve regurgitation. Mitral annular dysjunction is present. Tricuspid Valve: The tricuspid valve is structurally normal. There is trace tricuspid regurgitation. The Doppler estimated RVSP is within normal limits at 26.1 mmHg. Pulmonic Valve: The pulmonic valve is structurally normal. There is physiologic pulmonic valve regurgitation. Pericardium: There is a trivial pericardial effusion. Aorta: The aortic root is normal. There is no dilatation of the aortic root. CONCLUSIONS: 1. The left ventricular systolic function is normal, with a visually estimated ejection fraction of 60-65%. 2. Spectral Doppler shows an impaired relaxation pattern of left ventricular diastolic filling. 3. There is normal right ventricular global systolic function. 4. There is moderate mitral valve prolapse. 5. There is mild mitral valve regurgitation. 6. RVSP within normal limits. QUANTITATIVE DATA SUMMARY: 2D MEASUREMENTS: Normal Ranges: LAs: 3.61 cm (2.7-4.0cm) IVSd: 0.60 cm (0.6-1.1cm) LVPWd: 0.95 cm (0.6-1.1cm) LVIDd: 4.09 cm (3.9-5.9cm) LVIDs: 3.12 cm LV Mass Index: 57.7 g/m2 LV % FS 23.7 % LA VOLUME: Normal Ranges: LA Vol A4C: 43.1 ml (22+/-6mL/m2) LA Vol A2C: 56.8 ml LA Vol Index A4C: 26.9 ml/m2 LA Vol Index A2C: 35.4 ml/m2 LA Area A4C: 17.0 cm2 LA Major [place] A4C: 5.7 cm LA Vol A4C: 39.9 ml LA Vol A2C: 53.3 ml RA VOLUME BY A/L METHOD: Normal Ranges: RA Vol A4C: 22.4 ml (8.3-19.5ml) RA Vol Index A4C: 14.0 ml/m2 RA Area A4C: 11.0 cm2 RA Major [place] A4C: 4.6 cm M-MODE MEASUREMENTS: Normal Ranges: Ao Root: 3.20 cm (2.0-3.7cm) LAs: 3.60 cm (2.7-4.0cm) AORTA MEASUREMENTS: Normal Ranges: Asc Ao, d: 3.10 cm (2.1-3.4cm) Ao Arch: 2.70 cm (2.0-3.6cm) LV SYSTOLIC FUNCTION BY 2D PLANIMETRY (MOD): Normal Ranges: EF-A4C View: 60 % (>=55%) EF-A2C View: 68 % EF-Biplane: 65 % EF-Visual: 63 % LV EF Reported: 63 % LV DIASTOLIC FUNCTION: Normal Ranges: MV Peak E: 0.67 m/s (0.7-1.2 m/s) MV Peak A: 0.87 m/s (0.42-0.7 m/s) E/A Ratio: 0.77 (1.0-2.2) MV e' 0.088 m/s (>8.0) MV lateral e' 0.11 m/s MV medial e' 0.06 m/s MV A Dur: 137.01 msec E/e' Ratio: 7.65 (<8.0) PulmV Sys Nilson: 49.67 cm/s PulmV Garcia Nilson: 32.05 cm/s PulmV S/D Nilson: 1.55 PulmV A Revs Nilson: 24.34 cm/s PulmV A Rev (more content not included)... Linus Montgomery MD PhD - 03/23/2024 [facility], [facility], [address], [place], [place] [address] and TRANSTHORACIC ECHOCARDIOGRAM REPORT Patient Name: MARILIA Arango MEGAN Reading Physician: [id number] Linus Shelby MD Study Date: 03/23/2024 Ordering Provider: [id number] DIMA CAGE MRN/PID: [id number] Fellow: Nurse: Date of /Age: 9 1950 / 73 years Research Lab Assistant: Lina Andrew [facility] Gender: F Additional Staff: Height: 157.48 cm Admit Date: Weight: 59.87 kg Admission Status: Outpatient BSA / BMI: 1.60 m2 / 24.14 kg/m2 Blood Pressure: 121/81 mmHg Department Location: [facility] Study Type: TRANSTHORACIC ECHO (TTE) COMPLETE Diagnosis/ICD: Encounter for antineoplastic chemotherapy-Z51.11 Indication: Pre chemotherapy echo CPT Code: Echo Complete w Full Doppler-[id number] Patient History: Pertinent History: Breast CA. Study Detail: The following Echo studies were performed: 2D, M-Mode, Doppler and color flow. PHYSICIAN INTERPRETATION: Left Ventricle: The left ventricular systolic function is normal, with a visually estimated ejection fraction of 60-65%. There are no regional wall motion abnormalities. The left ventricular cavity size is normal. Spectral Doppler shows an impaired relaxation pattern of left ventricular diastolic filling. Left Atrium: The left atrium is upper limits of normal in size. Right Ventricle: The right ventricle is normal in size. There is normal right ventricular global systolic function. Right Atrium: The right atrium is normal in size. Aortic Valve: The aortic valve is trileaflet. There is no evidence of aortic valve regurgitation. The peak instantaneous gradient of the aortic valve is 11.0 mmHg. Mitral Valve: The mitral valve is mildly thickened. There is moderate mitral valve prolapse of the anterior and posterior leaflets. There is mild mitral valve regurgitation. Mitral annular dysjunction is present. Tricuspid Valve: The tricuspid valve is structurally normal. There is trace tricuspid regurgitation. The Doppler estimated RVSP is within normal limits at 26.1 mmHg. Pulmonic Valve: The pulmonic valve is structurally normal. There is physiologic pulmonic valve regurgitation. Pericardium: There is a trivial pericardial effusion. Aorta: The aortic root is normal. There is no dilatation of the aortic root. CONCLUSIONS: 1. The left ventricular systolic function is normal, with a visually estimated ejection fraction of 60-65%. 2. Spectral Doppler shows an impaired relaxation pattern of left ventricular diastolic filling. 3. There is normal right ventricular global systolic function. 4. There is moderate mitral valve prolapse. 5. There is mild mitral valve regurgitation. 6. RVSP within normal limits. QUANTITATIVE DATA SUMMARY: 2D MEASUREMENTS: Normal Ranges: LAs: 3.61 cm (2.7-4.0cm) IVSd: 0.60 cm (0.6-1.1cm) LVPWd: 0.95 cm (0.6-1.1cm) LVIDd: 4.09 cm (3.9-5.9cm) LVIDs: 3.12 cm LV Mass Index: 57.7 g/m2 LV % FS 23.7 % LA VOLUME: Normal Ranges: LA Vol A4C: 43.1 ml (22+/-6mL/m2) LA Vol A2C: 56.8 ml LA Vol Index A4C: 26.9 ml/m2 LA Vol Index A2C: 35.4 ml/m2 LA Area A4C: 17.0 cm2 LA Major [place] A4C: 5.7 cm LA Vol A4C: 39.9 ml LA Vol A2C: 53.3 ml RA VOLUME BY A/L METHOD: Normal Ranges: RA Vol A4C: 22.4 ml (8.3-19.5ml) RA Vol Index A4C: 14.0 ml/m2 RA Area A4C: 11.0 cm2 RA Major [place] A4C: 4.6 cm M-MODE MEASUREMENTS: Normal Ranges: Ao Root: 3.20 cm (2.0-3.7cm) LAs: 3.60 cm (2.7-4.0cm) AORTA MEASUREMENTS: Normal Ranges: Asc Ao, d: 3.10 cm (2.1-3.4cm) Ao Arch: 2.70 cm (2.0-3.6cm) LV SYSTOLIC FUNCTION BY 2D PLANIMETRY (MOD): Normal Ranges: EF-A4C View: 60 % (>=55%) EF-A2C View: 68 % EF-Biplane: 65 % EF-Visual: 63 % LV EF Reported: 63 % LV DIASTOLIC FUNCTION: Normal Ranges: MV Peak E: 0.67 m/s (0.7-1.2 m/s) MV Peak A: 0.87 m/s (0.42-0.7 m/s) E/A Ratio: 0.77 (1.0-2.2) MV e' 0.088 m/s (>8.0) MV lateral e' 0.11 m/s MV medial e' 0.06 m/s MV A Dur: 137.01 msec E/e' Ratio: 7.65 (<8.0) PulmV Sys Nilson: 49.67 cm/s PulmV Garcia Nilson: 32.05 cm/s PulmV S/D Nilson: 1.55 PulmV A Revs Nilson: 24.34 cm/s PulmV A Revs Dur: 137.01 msec MITRAL VALVE: Normal Ranges: MV DT: 263 msec (150-240msec) AORTIC VALVE: Normal Ranges: AoV Vmax: 1.66 m/s (<=1.7m/s) AoV Peak P.0 mmHg (<20mmHg) LVOT Max Nilson: 1.32 m/s (<=1.1m/s) LVOT VTI: 28.79 cm LVOT Diameter: 2.11 cm (1.8-2.4cm) AoV Area,Vmax: 2.79 cm2 (2.5-4.5cm2) AORTIC INSUFFICIENCY: AI Vmax: 3.69 m/s AI Half-time: 722 msec AI Decel Time: 2490 msec AI Decel Rate: 149.16 cm/s2 RIGHT VENTRICLE: RV Basal 2.70 cm RV Mid 2.00 cm RV Major 5.8 cm TAPSE: 17.0 mm RV s' 0.10 m/s TRICUSPID VALVE/RVSP: Normal Ranges: Peak TR Velocity: 2.40 m/s RV Syst Pressure: 26.1 mmHg (< 30mmHg) IVC (more content not included)... [facility] Work Phone: CBC W Auto Differential pane l (Bld)on 03-22-2024 Basophils (Bld) [#/Vol] 0.11 10*3/uL High [facility] Basophils/100 WBC (Bld) 1.2 % 0.0 - 2.0 % [facility] Eosinophils (Bld) [#/Vol] 0.31 10*3/uL [facility] Eosinophils/100 WBC (Bld) 3.5 % 0.0 - 6.0 % [facility] Erythrocyte distribution width (RBC) [Ratio] 12.4 % 11.5 - 14.5 % [facility] Hematocrit (Bld) [Volume fraction] 44.9 % 36.0 - 46.0 % [facility] Hemoglobin (Bld) [Mass/Vol] 15.1 g/dL 12.0 - 16.0 g/dL [facility] Immature granulocytes (Bld) [#/Vol] 0.06 10*3/uL [facility] Immature granulocytes/100 WBC (Bld) 0.7 % 0.0 - 0.9 % [facility] Comment on above: Immature Granulocyte Count (IG) includes promyelocytes, myelocytes and metamyelocytes but does not include bands. Percent differential counts (%) should be interpreted in the context of the absolute cell counts (cells/UL). Interpretation and review of laboratory results Abnormal [facility] Lymphocytes (Bld) [#/Vol] 2.55 10*3/uL [facility] Lymphocytes/100 WBC (Bld) 28.8 % 13.0 - 44.0 % [facility] MCH (RBC) [Entitic mass] 30.6 pg 26.0 - 34.0 pg [facility] MCHC (RBC) [Mass/Vol] 33.6 g/dL 32.0 - 36.0 g/dL [facility] MCV (RBC) [Entitic vol] 91 fL 80 - 100 fL [facility] Monocytes (Bld) [#/Vol] 0.62 10*3/uL [facility] Monocytes/100 WBC (Bld) 7.0 % 2.0 - 10.0 % [facility] Neutrophils (Bld) [#/Vol] 5.21 10*3/uL [facility] Comment on above: Percent differential counts (%) should be interpreted in the context of the absolute cell counts (cells/uL). Neutrophils/100 WBC (Bld) 58.8 % 40.0 - 80.0 % [facility] Nucleated RBC/100 WBC (Bld) [Ratio] 0.0 % [facility] Platelets (Bld) [#/Vol] 286 10*3/uL [facility] RBC (Bld) [#/Vol] 4.94 10*6/uL [facility] WBC (Bld) [#/Vol] 8.9 10*3/uL [facility] Comprehensive metabolic 2000 panelon 03-22-2024 Albumin BCP dye [Mass/Vol] 4.4 g/dL 3.4 - 5.0 g/dL [facility] ALP [Catalytic activity/Vol] 94 U/L 33 - 136 U/L [facility] ALT With P-5'-P [Catalytic activity/Vol] 13 U/L 7 - 45 U/L [facility] Comment on above: Patients treated wit h Sulfasalazine may generate falsely decreased results for ALT. Anion gap [Moles/Vol] 15 mmol/L 10 - 2 0 mmol/L [facility] AST With P-5'-P [Catalytic activity/Vol] 16 U/L 9 - 39 U/L [facility] Bilirubin [Mass/Vol] 0.6 mg/dL 0.0 - 1 .2 mg/dL [facility] Calcium [Mass/Vol] 10.0 mg/dL 8.6 - 10. 3 mg/dL [facility] Chloride [Moles/Vol] 101 mmol/L 98 - 10 7 mmol/L [facility] CO2 [Moles/Vol] 27 mmol/L 21 - 32 mmol/L [facility] Creatinine [Mass/Vol] 0.65 mg/dL 0.50 - 1.05 mg/dL [facility] eGFR - PINF [facility] Comment on above: Calculations of amarjit mated GFR are performed using the 2020 CKD-EPI Study Refit equation without the race variable for the IDMS-Traceable creatinine methods. https://jasn.asnjournals.org/content//ASN.76930 11094 Glucose [Mass/Vol] 110 mg/dL High 74 - 99 mg/dL [facility] Interpretation and review of laboratory results Abnormal [facility] Potassium [Moles/Vol] 3.8 mmol/L 3.5 - 5.3 mmol/L [facility] Protein [Mass/Vol] 7.3 g/dL 6.4 - 8.2 g/dL [facility] Sodium [Moles/Vol] 139 mmol/L 136 - 145 mmol/L [facility] Urea nitrogen [Mass/Vol] 18 mg/dL 6 - 23 mg/dL [facility] PT Coag (PPP) [Time]on 03-22 INR Coag (PPP) [Relative time] 0.9 {INR} 0.9 - 1.1 [facility] Interpretation and review of laboratory results Normal [facility] Protime-INRon 03-22-2024 PT Coag (PPP) [Time] 10.[address] [facility] MG Breast - unilateral Singl e view for clip placementon 02-08-2024 Radiology Study observation (narrative) [facility] Work Phone: No Panel Informationon 02-07 Status post ultrasou nd guided core needle biopsy of 2 left breast masses and axillary lymph node followed by tissue marker placement. Pathology is pending. POST PROCEDURE MAMMOGRAM FOR MARKER PLACEMENT. MACRO: None Signed by: Adolfo Philip 02/08/2024 3:37 PM Dictation workstation: [id number] [facility] Interpreted By: Adolfo Ramirez, STUDY: BI BREAST BIOPSY CLIP IMAGING; BI US BIOPSY OF LYMPH NODE; BI US GUIDED BREAST LOCALIZATION AND BIOPSY LEFT; 02/08/2024 11:21 am; 02/08/2024 10:38 am; 02/08/2024 9:42 am ACCESSION NUMBER(S): [id number]; [id number]; [id number] ORDERING CLINICIAN: CHAVA RADER INDICATION: Abnormal Left breast masses and axillary lymph node. FINDINGS: PREPROCEDURAL CONSULTATION: The history and physical exam pertinent to the procedure were reviewed and no updates were made. The procedure was explained to the patient including the risks, benefits, and alternatives. Medications were discussed, including any prior use of blood thinning medications by the patient. Patient allergies were reviewed. The risks, including but not limited to infection and bleeding, were reviewed by the performing physician and the patient agreed to undergo the procedure. Prior to the procedure, an audible timeout was done to verify patient identification, site and type of procedure. Dr. Adolfo Philip, A radiology nurse and an medical laboratory technologist were present. PROCEDURE 1: Scanning of the left breast redemonstrated the mass of concern in the 11 o'clock position, 10 cm from the nipple. The left breast was marked under ultrasound guidance and cleansed. 8 mL of buffered 1% lidocaine was injected subcutaneously and then into the deeper tissues surrounding the mass. A small incision was made. 4 tissue core specimens were then obtained with a 12-gauge spring-loaded biopsy needle with minimal bleeding (estimated blood loss less than 10 mL). A barrel Hydromark tissue marker was then placed into the biopsy site. Hemostasis was achieved with manual compression. The patient tolerated the procedure without difficulty. PROCEDURE 2: Scanning of the left breast redemonstrated the mass of concern in the 12 o'clock position, 10 cm from the nipple. The left breast was marked under ultrasound guidance and cleansed. 8 mL of buffered 1% lidocaine was injected subcutaneously and then into the deeper tissues surrounding the mass. A small incision was made. 3 tissue core specimens were then obtained with a 12-gauge spring-loaded biopsy needle with minimal bleeding (estimated blood loss less than 10 mL). A open coil Hydromark tissue marker was then placed into the biopsy site. Hemostasis was achieved with manual compression. The patient tolerated the procedure without difficulty. PROCEDURE 3: Scanning of the left axilla redemonstrated the lymph node of concern. The left axilla was marked under ultrasound guidance and cleansed. 6 mL of buffered 1% lidocaine was injected subcutaneously and then into the deeper tissues surrounding the node. A small incision was made. 3 tissue core specimens were then obtained with a 14-gauge spring-loaded biopsy needle with minimal bleeding (estimated blood loss less than 10 mL). A butterfly Hydromark tissue marker was then placed into the biopsy site. Hemostasis was achieved with manual compression. The patient tolerated the second procedure without difficulty. The postbiopsy mammogram demonstrates satisfactory placement of all 3 tissue markers. The patient experienced no complications during the procedure. Home-going/follow-up instructions were reviewed with the patient before she left the department. [facility] Adolfo Philip MD - 02/08/2024 Interpreted By: Adolfo Philip, STUDY: BI BREAST BIOPSY CLIP IMAGING; BI US BIOPSY OF LYMPH NODE; BI US GUIDED BREAST LOCALIZATION AND BIOPSY LEFT; 02/08/2024 11:21 am; 02/08/2024 10:38 am; 02/08/2024 9:42 am ACCESSION NUMBER(S): [id number]; [id number]; [id number] ORDERING CLINICIAN: CHAVA RADER INDICATION: Abnormal Left breast masses and axillary lymph node. FINDINGS: PREPROCEDURAL CONSULTATION: The history and physical exam pertinent to the procedure were reviewed and no updates were made. The procedure was explained to the patient including the risks, benefits, and alternatives. Medications were discussed, including any prior use of blood thinning medications by the patient. Patient allergies were reviewed. The risks, including but not limited to infection and bleeding, were reviewed by the performing physician and the patient agreed to undergo the procedure. Prior to the procedure, an audible timeout was done to verify patient identification, site and type of procedure. Dr. Adolfo Philip, A radiology nurse and an medical laboratory technologist were present. PROCEDURE 1: Scanning of the left breast redemonstrated the mass of concern in the 11 o'clock position, 10 cm from the nipple. The left breast was marked under ultrasound guidance and cleansed. 8 mL of buffered 1% lidocaine was injected subcutaneously and then into the deeper tissues surrounding the mass. A small incision was made. 4 tissue core specimens were then obtained with a 12-gauge spring-loaded biopsy needle with minimal bleeding (estimated blood loss less than 10 mL). A barrel Hydromark tissue marker was then placed into the biopsy site. Hemostasis was achieved with manual compression. The patient tolerated the procedure without difficulty. PROCEDURE 2: Scanning of the left breast redemonstrated the mass of concern in the 12 o'clock position, 10 cm from the nipple. The left breast was marked under ultrasound guidance and cleansed. 8 mL of buffered 1% lidocaine was injected subcutaneously and then into the deeper tissues surrounding the mass. A small incision was made. 3 tissue core specimens were then obtained with a 12-gauge spring-loaded biopsy needle with minimal bleeding (estimated blood loss less than 10 mL). A open coil Hydromark tissue marker was then placed into the biopsy site. Hemostasis was achieved with manual compression. The patient tolerated the procedure without difficulty. PROCEDURE 3: Scanning of the left axilla redemonstrated the lymph node of concern. The left axilla was marked under ultrasound guidance and cleansed. 6 mL of buffered 1% lidocaine was injected subcutaneously and then into the deeper tissues surrounding the node. A small incision was made. 3 tissue core specimens were then obtained with a 14-gauge spring-loaded biopsy needle with minimal bleeding (estimated blood loss less than 10 mL). A butterfly Hydromark tissue marker was then placed into the biopsy site. Hemostasis was achieved with manual compression. The patient tolerated the second procedure without difficulty. The postbiopsy mammogram demonstrates satisfactory placement of all 3 tissue markers. The patient experienced no complications during the procedure. Home-going/follow-up instructions were reviewed with the patient before she left the department. IMPRESSION: Status post ultrasound guided core needle biopsy of 2 left breast masses and axillary lymph node followed by tissue marker placement. Pathology is pending. POST PROCEDURE MAMMOGRAM FOR MARKER PLACEMENT. MACRO: None Signed by: Adolfo Philip 02/08/2024 3:37 PM Dictation workstation: [id number] [facility] Work Phone: No Panel InformationOrdered By: Adolfo Phliip on 02-08-2024 [facility] Work Phone: US Breast - left limitedOrde red By: Adolfo Philip on 02-08-2024 Interpretation and review of laboratory results Abnormal [facility] Work Phone: [facility] Work Phone: US Breast - left limitedon 0 02-08-[address] masses with axillary lymphadenopathy. These may be related to patient's known lymphoma/leukemia or may be related to a primary breast cancer. Ultrasound-guided biopsies of 2 left breast masses and a left axillary lymph node are recommended for further evaluation. The plan was discussed with the patient and her provider Antonio Rader prior to biopsy. Method of Detection: Category N - Not detected by Screening, Patient or Provider BI-RADS CATEGORY: BI-RADS Category: 4 Suspicious. Recommendation: Surgical Consultation and Biopsy. Recommended Date: Immediate. Laterality: Left. For any future breast imaging appointments, please call [phone]). MACRO: Adolfo Philip discussed the significance and urgency of this critical finding in person with ANTONIO RADER on 02/08/2024 at 9:15 AM. (-RCF-) Findings: See findings. Signed by: Adolfo Philip 02/08/2024 3:48 PM Dictation workstation: [id number] MMODAL Interpreted By: Adolfo Ramirez, STUDY: BI US BREAST LIMITED LEFT; 02/08/2024 10:47 am ACCESSION NUMBER(S): [id number] ORDERING CLINICIAN: ANTONIO RADER INDICATION: Repeat evaluation of the left breast for suspicious left breast masses. The axilla was also not evaluated at that time. COMPARISON: 01/20/2024, 01/08/2024, 05/04/2019 FINDINGS: Targeted ultrasound was performed of the left breast by a registered taffy puller with elastography. In the left breast at 11 o'clock, 10 cm from the nipple, there is an anti parallel irregular hypoechoic mass with posterior shadowing which is stiff on elastography and does not contain flow measuring 6 x 6 x 5 mm. This is suspicious and corresponds to the medial most breast mass mammographically. In the left breast at 12 o'clock, 10 cm from the nipple, there is an oval anti parallel hypoechoic mass which is stiff on elastography and does not contain flow measuring 6 x 6 x 6 mm. This is suspicious and corresponds to the most lateral breast mass mammographically. An additional 2 similar-appearing hypoechoic masses are seen between these 2 masses which are also suspicious, measuring up to 9 mm and 5 mm respectively. At least 5 abnormal lymph nodes are visualized in the left axilla, the largest measuring up to 3 cm. MMODAL Adolfo Philip MD - 02/08/2024 Interpreted By: Adolfo Philip, STUDY: BI US BREAST LIMITED LEFT; 02/08/2024 10:47 am ACCESSION NUMBER(S): [id number] ORDERING CLINICIAN: ANTONIO RADER INDICATION: Repeat evaluation of the left breast for suspicious left breast masses. The axilla was also not evaluated at that time. COMPARISON: 01/20/2024, 01/08/2024, 05/04/2019 FINDINGS: Targeted ultrasound was performed of the left breast by a registered taffy puller with elastography. In the left breast at 11 o'clock, 10 cm from the nipple, there is an anti parallel irregular hypoechoic mass with posterior shadowing which is stiff on elastography and does not contain flow measuring 6 x 6 x 5 mm. This is suspicious and corresponds to the medial most breast mass mammographically. In the left breast at 12 o'clock, 10 cm from the nipple, there is an oval anti parallel hypoechoic mass which is stiff on elastography and does not contain flow measuring 6 x 6 x 6 mm. This is suspicious and corresponds to the most lateral breast mass mammographically. An additional 2 similar-appearing hypoechoic masses are seen between these 2 masses which are also suspicious, measuring up to 9 mm and 5 mm respectively. At least 5 abnormal lymph nodes are visualized in the left axilla, the largest measuring up to 3 cm. IMPRESSION: Suspicious left breast masses with axillary lymphadenopathy. These may be related to patient's known lymphoma/leukemia or may be related to a primary breast cancer. Ultrasound-guided biopsies of 2 left breast masses and a left axillary lymph node are recommended for further evaluation. The plan was discussed with the patient and her provider Antonio Rader prior to biopsy. Method of Detection: Category N - Not detected by Screening, Patient or Provider BI-RADS CATEGORY: BI-RADS Category: 4 Suspicious. Recommendation: Surgical Consultation and Biopsy. Recommended Date: Immediate. Laterality: Left. For any future breast imaging appointments, please call [phone]). MACRO: Adolfo Philip discussed the significance and urgency of this critical finding in person with ANTONIO RADER on 02/08/2024 at 9:15 AM. (-RCF-) Findings: See findings. Signed by: Adolfo Philip 02/08/2024 3:48 PM Dictation workstation: [id number] [facility] Work Phone: Radiology Study observation (narrative) [facility] Work Phone: US Guidance for core needle biopsy of Lymph nodeon 02-08-2024 Radiology Study observation (narrative) [facility] Work Phone: US Guidance for localization of Breast - lefton 02-08-2024 Radiology Study observation (narrative) [facility] Work Phone: DBT Breast - left diagnostic Ordered By: Saad Mariano on 01-20-2024 Interpretation and review of laboratory results Abnormal [facility] Work Phone: [facility] Work Phone: DBT Breast - left diagnostic on 01-20-2024 Cluster of multiple breast masses BI-RADS CATEGORY: BI-RADS Category: 4 Suspicious. Recommendation: Surgical Consultation and Biopsy. Recommended Date: Immediate. Laterality: Left. For any future breast imaging appointments, please call [phone]). MACRO: Critical Finding: See findings. Notification was initiated on 01/20/2024 at 2:01 pm by Saad Mariano. (-YCF-) Instructions: Signed by: Saad Mariano 01/20/2024 2:01 PM Dictation workstation: [id number] [facility] Interpreted By: Saad Mariano, STUDY: BI MAMMO LEFT DIAGNOSTIC TOMOSYNTHESIS; 01/20/2024 1:00 pm ACCESSION NUMBER(S): [id number] ORDERING CLINICIAN: CHAVA EDWARDS INDICATION: Signs/Symptoms:left breast masses. COMPARISON: Mammogram of 01/08/2024 FINDINGS: MAMMOGRAPHY: 2D and tomosynthesis images were reviewed at 1 mm slice thickness. Density: There are areas of scattered fibroglandular tissue. Diagnostic views demonstrates persistence an approximate 3.8 cm cluster of masses measuring up to approximately 7 mm at the upper posterior central aspect. Additional sonography was performed. ULTRASOUND: Sonography demonstrates multiple hypoechoic masses centered at the 12 o'clock position 15 cm from the nipple, corresponding to those by mammography. There is no significant blood flow by color Doppler. These may be due to abnormal lymph nodes with replaced fatty rosina, possibly reactive but suggesting malignancy. Malignant breast masses are also possible, and would be considered more likely than benign breast masses such as fibroadenomas given development since the previous mammogram of 05/04/2019. Biopsy, surgical consultation or at least short-term follow-up would be recommended. [facility] Saad Mariano MD - 01/20/2024 Interpreted By: Saad Mariano, STUDY: BI MAMMO LEFT DIAGNOSTIC TOMOSYNTHESIS; 01/20/2024 1:00 pm ACCESSION NUMBER(S): [id number] ORDERING CLINICIAN: CHAVA EDWARDS INDICATION: Signs/Symptoms:left breast masses. COMPARISON: Mammogram of 01/08/2024 FINDINGS: MAMMOGRAPHY: 2D and tomosynthesis images were reviewed at 1 mm slice thickness. Density: There are areas of scattered fibroglandular tissue. Diagnostic views demonstrates persistence an approximate 3.8 cm cluster of masses measuring up to approximately 7 mm at the upper posterior central aspect. Additional sonography was performed. ULTRASOUND: Sonography demonstrates multiple hypoechoic masses centered at the 12 o'clock position 15 cm from the nipple, corresponding to those by mammography. There is no significant blood flow by color Doppler. These may be due to abnormal lymph nodes with replaced fatty rosina, possibly reactive but suggesting malignancy. Malignant breast masses are also possible, and would be considered more likely than benign breast masses such as fibroadenomas given development since the previous mammogram of 05/04/2019. Biopsy, surgical consultation or at least short-term follow-up would be recommended. IMPRESSION: Cluster of multiple breast masses BI-RADS CATEGORY: BI-RADS Category: 4 Suspicious. Recommendation: Surgical Consultation and Biopsy. Recommended Date: Immediate. Laterality: Left. For any future breast imaging appointments, please call [phone]). MACRO: Critical Finding: See findings. Notification was initiated on 01/20/2024 at 2:01 pm by Saad Mariano. (-YCF-) Instructions: Signed by: Saad Mariano 01/20/2024 2:01 PM Dictation workstation: [id number] [facility] Work Phone: Radiology Study observation (narrative) [facility] Work Phone: US Breast - left limitedOrde red By: Saad Mariano on 01-20-2024 Interpretation and review of laboratory results Abnormal [facility] Work Phone: [facility] Work Phone: US Breast - left limitedon 0 01-20-2024 Interpreted By: Saad Mariano, STUDY: BI US BREAST LIMITED LEFT; 01/20/2024 2:00 pm INDICATION: Signs/Symptoms:Abnorma l mammogram. COMPARISON: None. ACCESSION NUMBER(S): [id number] ORDERING CLINICIAN: CHAVA BROWN Targeted sonography with grayscale imaging and color Doppler analysis was performed at the . FINDINGS: Sonographic findings were included with the combined report for the mammogram and ultrasound. Please refer to that report. MMODAL Saad Mariano MD - 01/20/2024 Interpreted By: Saad Mariano, STUDY: BI US BREAST LIMITED LEFT; 01/20/2024 2:00 pm INDICATION: Signs/Symptoms:Abnorma l mammogram. COMPARISON: None. ACCESSION NUMBER(S): [id number] ORDERING CLINICIAN: CHAVA BROWN Targeted sonography with grayscale imaging and color Doppler analysis was performed at the . FINDINGS: Sonographic findings were included with the combined report for the mammogram and ultrasound. Please refer to that report. IMPRESSION: BI-RADS Category: 4 Suspicious. Recommendation: Surgical Consultation and Biopsy. Recommended Date: Immediate. Laterality: Bilateral. Signed by: Saad Mariano 01/20/2024 2:26 PM Dictation workstation: [id number] [facility] Work Phone: Radiology Study observation (narrative) [facility] Work Phone: Absolute lymphocyte countOrd ered By: Chandler Calzada on 01-14-2024 Lymphocytes Auto (Unsp spec) [#/Vol] 2.26 10*3/uL 0.83-4.51 [facility] Automated lymphocyte count a s percentage of total leukocytesOrdered By: Chandler Calzada on 01-14-2024 Lymphocytes/100 WBC Auto (Unsp spec) 26.9 % 19-41 [facility] Basophil percentageOrdered B y: Chandler Calzada on 01-14-2024 Basophils/100 WBC (Bld) 1.2 % 0-1 [facility] Bilirubin [Mass/Vol] 0.50 mg/dL 0.20-1.00 [facility] Comment on above: For patients on eltr ombopag therapy, use of Dimension [place] TBIL is not recommended. Chloride [Moles/Vol] 103 mmol/L 98-107 [facility] Cholesterol [Mass/Vol] 192 mg/dL <200 [facility] Comment on above: <200 mg/dL Desirable 200-240 mg/dL Borderline >240 mg/dL High Risk Eosinophils/100 WBC (Bld) 3.9 % 0-5 [facility] Glucose [Mass/Vol] 158 mg/dL 74-106 [facility] Comment on above: Fasting Glucose resu lt greater than or equal to 126 mg/dL suggests DIABETES MELLITUS per A.D.A. criteria. Hemoglobin (Bld) [Mass/Vol] 14.0 g/dL 12.0-15.0 [facility] Monocytes/100 WBC (Bld) 7.1 % 0-10 [facility] Neutrophils (Bld) [#/Vol] 5.1 10*3/uL 2.0-7.7 [facility] Neutrophils/100 WBC (Bld) 60.4 % 47-70 [facility] Potassium [Moles/Vol] 4.0 mmol/L 3.5-5.1 [facility] Protein [Mass/Vol] 7.1 g/dL 6.4-8.2 [facility] Sodium [Moles/Vol] 141 mmol/L 136-145 [facility] Triglyceride [Mass/Vol] 275 mg/dL <199 [facility] Comment on above: The drugs N-Acetylcy steine and Metamizole may falsely depress this assay.Serum Triglycerides Reference Interval Normal <150 mg/dL Borderline high 150 - 199 mg/dL High 200 - 499 mg/dL Very High > or = 500 mg/dL WBC (Bld) [#/Vol] 8.4 10*3/uL 4.4-11.0 [facility] Determination of erythrocyte mean corpuscular volume (MCV)Ordered By: Chandler Calzada on 01-14-2024 MCV (RBC) [Entitic vol] 92.2 fL 81-99 [facility] Erythrocyte distribution wid th ratioOrdered By: Chandler Calzada on 01-14-2024 Erythrocyte distribution width (RBC) [Ratio] 12.4 % 11.6-14.6 [facility] Erythrocyte distribution wid th standard deviationOrdered By: Chandler Calzada on 01-14-2024 Erythrocyte distribution width (RBC) [Entitic vol] 41.7 fL 35.1-43.9 [facility] Hematocrit Auto (Bld) [Volum e fraction]Ordered By: Chandler Calzada on 01-14-2024 Hematocrit (Bld) [Volume fraction] 42.3 % 37-47 [facility] Immature granulocytes/100 WB C Auto (Bld)Ordered By: Chandler Calzada on 01-14-2024 Immature granulocytes/100 WBC (Bld) 0.500 % 0.0-0.9 [facility] Comment on above: IG% - Immature Granu locytes (promyelocytes, myelocytes and metamyelocytes) > 1% indicates that a LEFT SHIFT is Present. Laboratory - Chemistry and C hemistry - challengeOrdered By: Chandler Calzada on 01-14-2024 Albumin/Globulin [Mass ratio] 1.3 {ratio} 0.9-2.4 [facility] ALP [Catalytic activity/Vol] 84 U/L 45-117 [facility] ALT [Catalytic activity/Vol] 25 U/L 13-56 [facility] Cholesterol in HDL [Mass/Vol] 56 mg/dL >40 [facility] Comment on above: The drugs N-Acetylcy steine and Metamizole may falsely depress this assay. Reference Range HDL <40 mg/dL Low HDL Cholesterol HDL >or= 60 mg/dL High HDL Cholesterol Cholesterol in LDL [Mass/Vol] 81 mg/dL 0-130 [facility] CO2 [Moles/Vol] 28.0 mmol/L 21.0-32.0 [facility] Globulin (S) [Mass/Vol] 3.1 g/dL 2.2-4.2 [facility] Urea nitrogen/Creatinine [Mass ratio] 21.8 mg/mg 10-20 [facility] Laboratory - Hematology and Cell countson 01-14-2024 HbA1c (Bld) [Mass fraction] 7.8 % 4.2-6.3 [facility] Laboratory - Hematology and Cell countsOrdered By: Chandler Calzada on 01-14-2024 MCH (RBC) [Entitic mass] 30.5 pg 27.0-32.0 [facility] MCHC (RBC) [Mass/Vol] 33.1 g/dL 32-36 [facility] Nucleated RBC/100 WBC (Bld) [Ratio] 0 % 0-5 [facility] Platelet mean volume (Bld) [Entitic vol] 12.2 fL 6.2-12.0 [facility] Platelets (Bld) [#/Vol] 251 10*3/uL 150-450 [facility] No Panel InformationOrdered By: Chandler Calzada on 01-14-2024 Estimated GFR (MDRD) Amer 73 mL/min >60 [facility] Comment on above: GFR Calc Estimated GFR (MDRD) Non-Af Amer 60 mL/min >60 [facility] Comment on above: Non- GFR Calc VLDL Cholesterol 55 mg/dL 5-40 [facility] RBC Auto (Bld) [#/Vol]Ordere d By: Chandler Calzada on 01-14-2024 RBC (Bld) [#/Vol] 4.59 10*6/uL 4.2-5.4 [facility] Serum or plasma calcium caitlin urement (mass/volume)Ordered By: Chandler Calzada on 01-14-2024 Calcium [Mass/Vol] 9.5 mg/dL 8.5-10.1 [facility] Serum or plasma creatinine m easurement (mass/volume)Ordered By: Chandler Calzada on 01-14-2024 Creatinine [Mass/Vol] 0.96 mg/dL 0.55-1.02 [facility] Comment on above: The validity of the calculated GFR & GFRAA in patients over 70 years has not been determined. Clinical correlation is essential. Serum or plasma urea nitroge n measurement (mass/volume)Ordered By: Chandler Calzada on 01-14-2024 Urea nitrogen [Mass/Vol] 21 mg/dL 7-18 [facility] Thin prep Papanicolaou smear with manual screeningOrdered By: Chandler Calzada on 01-14-2024 Thin prep Papanicolaou smear with manual screening 4.0 g/dL 3.2-5.0 [facility] Thin prep Papanicolaou smear with manual screening 19 U/L 15-37 [facility] Thin prep Papanicolaou smear with manual screening 10 5-15 [facility] Study Interpretation of outs rafal studyon 01-12-2024 Outside images for comparison or treatment purposes, not interpreted by Radiologists. IMAGING Outside images for comparison or treatment purposes, not interpreted by Radiologists. IMAGING CBC W Auto Differential pane l (Bld)on 12-25-2023 Basophils (Bld) [#/Vol] 0.08 10*3/uL [facility] Basophils/100 WBC (Bld) 1.1 % 0.0 - 2.0 % [facility] Eosinophils (Bld) [#/Vol] 0.33 10*3/uL [facility] Eosinophils/100 WBC (Bld) 4.5 % 0.0 - 6.0 % [facility] Erythrocyte distribution width (RBC) [Ratio] 12.5 % 11.5 - 14.5 % [facility] Hematocrit (Bld) [Volume fraction] 43.2 % 36.0 - 46.0 % [facility] Hemoglobin (Bld) [Mass/Vol] 14.7 g/dL 12.0 - 16.0 g/dL [facility] Immature granulocytes (Bld) [#/Vol] 0.02 10*3/uL [facility] Immature granulocytes/100 WBC (Bld) 0.3 % 0.0 - 0.9 % [facility] Comment on above: Immature Granulocyte Count (IG) includes promyelocytes, myelocytes and metamyelocytes but does not include bands. Percent differential counts (%) should be interpreted in the context of the absolute cell counts (cells/UL). Lymphocytes (Bld) [#/Vol] 1.76 10*3/uL [facility] Lymphocytes/100 WBC (Bld) 24.1 % 13.0 - 44.0 % [facility] MCH (RBC) [Entitic mass] 31.5 pg 26.0 - 34.0 pg [facility] MCHC (RBC) [Mass/Vol] 34.0 g/dL 32.0 - 36.0 g/dL [facility] MCV (RBC) [Entitic vol] 93 fL 80 - 100 fL [facility] Monocytes (Bld) [#/Vol] 0.59 10*3/uL [facility] Monocytes/100 WBC (Bld) 8.1 % 2.0 - 10.0 % [facility] Neutrophils (Bld) [#/Vol] 4.51 10*3/uL [facility] Comment on above: Percent differential counts (%) should be interpreted in the context of the absolute cell counts (cells/uL). Neutrophils/100 WBC (Bld) 61.9 % 40.0 - 80.0 % [facility] Nucleated RBC/100 WBC (Bld) [Ratio] [facility] Comment on above: Not Measured Platelets (Bld) [#/Vol] 278 10*3/uL [facility] RBC (Bld) [#/Vol] 4.66 10*6/uL [facility] WBC (Bld) [#/Vol] 7.3 10*3/uL [facility] Absolute lymphocyte countOrd ered By: Chandler Calzada on 04-13-2023 Lymphocytes Auto (Unsp spec) [#/Vol] 1.94 10*3/uL 0.83-4.51 [facility] Basophil percentageOrdered B y: Chandler Calzada on 04-13-2023 Basophils/100 WBC (Bld) 1.3 % 0-1 [facility] Bilirubin [Mass/Vol] 0.50 mg/dL 0.20-1.00 [facility] Comment on above: For patients on eltr ombopag therapy, use of Dimension [place] TBIL is not recommended. Chloride [Moles/Vol] 105 mmol/L 98-107 [facility] Eosinophils/100 WBC (Bld) 3.5 % 0-5 [facility] Glucose [Mass/Vol] 205 mg/dL 74-106 [facility] Comment on above: Glucose result great er than or equal to 200 mg/dLsuggests DIABETES MELLITUS per A.D.A. criteria. Neutrophils (Bld) [#/Vol] 4.4 10*3/uL 2.0-7.7 [facility] Neutrophils/100 WBC (Bld) 60.6 % 47-70 [facility] Potassium [Moles/Vol] 4.1 mmol/L 3.5-5.1 [facility] Protein [Mass/Vol] 6.8 g/dL 6.4-8.2 [facility] Sodium [Moles/Vol] 141 mmol/L 136-145 [facility] WBC (Bld) [#/Vol] 7.2 10*3/uL 4.4-11.0 [facility] Blood erythrocytes count (nu mber/volume)Ordered By: Chandler Clazada on 04-13-2023 RBC (Bld) [#/Vol] 4.52 10*6/uL 4.2-5.4 [facility] Blood hemoglobin measurement (mass/volume)Ordered By: Chandler Calzada on 04-13-2023 Hemoglobin (Bld) [Mass/Vol] 14.3 g/dL 12.0-15.0 [facility] Blood lymphocytes/100 leukoc ytesOrdered By: Chandler Calzada on 04-13-2023 Lymphocytes/100 WBC (Bld) 26.9 % 19-41 [facility] Blood monocytes/100 leukocyt esOrdered By: Chandler Calzada on 04-13-2023 Monocytes/100 WBC (Bld) 7.4 % 0-10 [facility] Blood platelet mean volumeOr dered By: Chandler Calzada on 04-13-2023 Platelet mean volume (Bld) [Entitic vol] 12.3 fL 6.2-12.0 [facility] Determination of erythrocyte mean corpuscular volume (MCV)Ordered By: Chandler Calzada on 04-13-2023 MCV (RBC) [Entitic vol] 95.4 fL 81-99 [facility] Hematocrit Auto (Bld) [Volum e fraction]Ordered By: Chandler Calzada on 04-13-2023 Hematocrit (Bld) [Volume fraction] 43.1 % 37-47 [facility] Laboratory - Chemistry and C hemistry - challengeOrdered By: Chandler Calzada on 04-13-2023 ALP [Catalytic activity/Vol] 79 U/L 45-117 [facility] ALT [Catalytic activity/Vol] 20 U/L 13-56 [facility] CO2 [Moles/Vol] 29.0 mmol/L 21.0-32.0 [facility] Globulin (S) [Mass/Vol] 3.1 g/dL 2.2-4.2 [facility] Urea nitrogen/Creatinine [Mass ratio] 22.1 mg/mg 10-20 [facility] Laboratory - Hematology and Cell countsOrdered By: Chandler Calzada on 04-13-2023 Erythrocyte distribution width (RBC) [Entitic vol] 43.0 fL 35.1-43.9 [facility] Erythrocyte distribution width (RBC) [Ratio] 12.3 % 11.6-14.6 [facility] Immature granulocytes/100 WBC (Bld) 0.300 % 0.0-0.9 [facility] Comment on above: IG% - Immature Granu locytes (promyelocytes, myelocytes and metamyelocytes) > 1% indicates that a LEFT SHIFT is Present. MCH (RBC) [Entitic mass] 31.6 pg 27.0-32.0 [facility] Nucleated RBC/100 WBC (Bld) [Ratio] 0 % 0-5 [facility] MCHC Auto (RBC) [Mass/Vol]Or dered By: Chandler Calzada on 04-13-2023 MCHC (RBC) [Mass/Vol] 33.2 g/dL 32-36 [facility] No Panel InformationOrdered By: Chandler Calzada on 04-13-2023 Estimated GFR (MDRD) Amer 67 mL/min >60 [facility] Comment on above: GFR Calc Estimated GFR (MDRD) Non-Af Amer 55 mL/min >60 [facility] Comment on above: Non- GFR Calc Platelets bldOrdered By: Robin Calzada on 04-13-2023 Platelets (Bld) [#/Vol] 232 10*3/uL 150-450 [facility] Serum or plasma albumin caitlin urement (mass/volume)Ordered By: Chandler Calzada on 04-13-2023 Albumin [Mass/Vol] 3.7 g/dL 3.2-5.0 [facility] Serum or plasma albumin/glob ulin mass ratioOrdered By: Chandler Calzada on 04-13-2023 Albumin/Globulin [Mass ratio] 1.2 {ratio} 0.9-2.4 [facility] Serum or plasma calcium caitlin urement (mass/volume)Ordered By: Chandler Calzada on 04-13-2023 Calcium [Mass/Vol] 9.3 mg/dL 8.5-10.1 [facility] Serum or plasma creatinine m easurement (mass/volume)Ordered By: Chandler Calzada on 04-13-2023 Creatinine [Mass/Vol] 1.04 mg/dL 0.55-1.02 [facility] Comment on above: The validity of the calculated GFR & GFRAA in patients over 70 years has not been determined. Clinical correlation is essential. Serum or plasma urea nitroge n measurement (mass/volume)Ordered By: Chandler Calzada on 04-13-2023 Urea nitrogen [Mass/Vol] 23 mg/dL 7-18 [facility] Serum or plasma uric acid me asurement (mass/volume)Ordered By: Chandler Calzada on 04-13-2023 Urate [Mass/Vol] 4.3 mg/dL 2.6-6.0 [facility] Comment on above: The drugs N-Acetylcy steine and Metamizole may falsely depress this assay. Thin prep Papanicolaou smear with manual screeningOrdered By: Chandler Calzada on 04-13-2023 Thin prep Papanicolaou smear with manual screening 19 U/L 15-37 [facility] Thin prep Papanicolaou smear with manual screening 7 5-15 [facility] Whole blood hemoglobin A1c/t otal hemoglobin ratio (mass fraction)Ordered By: Chandler Calzada on 04-13-2023 HbA1c (Bld) [Mass fraction] 7.2 % 3.8-5.6 [facility] Comment on above: Normal < 5.7 % Predi abetic 5.7 - 6.4 % Diabetic >or= 6.5 % Please note range changes. Absolute lymphocyte counton 08-25-2022 Lymphocytes Auto (Unsp spec) [#/Vol] 2.62 10*3/uL 0.83-4.51 [facility] Work Phone: Basophil percentageon 2021 Basophils/100 WBC (Bld) 1.1 % 0-1 [facility] Work Phone: Bilirubin [Mass/Vol] 0.50 mg/dL 0.20-1.00 [facility] Work Phone: Comment on above: For patients on eltr ombopag therapy, use of Dimension [place] TBIL is not recommended. Chloride [Moles/Vol] 104 mmol/L 98-107 [facility] Work Phone: Cholesterol [Mass/Vol] 202 mg/dL <200 [facility] Work Phone: [phone] Comment on above: <200 mg/dL Desirable 200-240 mg/dL Borderline >240 mg/dL High Risk Eosinophils/100 WBC (Bld) 2.5 % 0-5 [facility] Work Phone: Glucose [Mass/Vol] 142 mg/dL 74-106 [facility] Work Phone: [phone] Comment on above: Fasting Glucose resu lt greater than or equal to 126 mg/dL suggests DIABETES MELLITUS per A.D.A. criteria. Neutrophils (Bld) [#/Vol] 4.8 10*3/uL 2.0-7.7 [facility] Work Phone: [phone] Neutrophils/100 WBC (Bld) 57.0 % 47-70 [facility] Work Phone: [phone] Potassium [Moles/Vol] 4.0 mmol/L 3.5-5.1 [facility] Work Phone: [phone] Protein [Mass/Vol] 7.2 g/dL 6.4-8.2 [facility] Work Phone: [phone] Sodium [Moles/Vol] 137 mmol/L 136-145 [facility] Work Phone: [phone] Triglyceride [Mass/Vol] 273 mg/dL <199 [facility] Work Phone: [phone] Comment on above: The drugs N-Acetylcy steine and Metamizole may falsely depress this assay.Serum Triglycerides Reference Interval Normal <150 mg/dL Borderline high 150 - 199 mg/dL High 200 - 499 mg/dL Very High > or = 500 mg/dL WBC (Bld) [#/Vol] 8.3 10*3/uL 4.4-11.0 [facility] Work Phone: [phone] Blood erythrocytes count (nu mber/volume)on 08-25-2022 RBC (Bld) [#/Vol] 4.60 10*6/uL 4.2-5.4 [facility] Work Phone: Blood hemoglobin measurement (mass/volume)on 08-25-2022 Hemoglobin (Bld) [Mass/Vol] 14.4 g/dL 12.0-15.0 [facility] Work Phone: [phone] Blood lymphocytes/100 leukoc yteson 08-25-2022 Lymphocytes/100 WBC (Bld) 31.5 % 19-41 [facility] Work Phone: [phone] Blood monocytes/100 leukocyt eson 08-25-2022 Monocytes/100 WBC (Bld) 7.4 % 0-10 [facility] Work Phone: [phone] Blood platelet mean volumeon 08-25-2022 Platelet mean volume (Bld) [Entitic vol] 11.7 fL 6.2-12.0 [facility] Work Phone: [phone] Determination of erythrocyte mean corpuscular volume (MCV)on 08-25-2022 MCV (RBC) [Entitic vol] 92.2 fL 81-99 [facility] Work Phone: [phone] Hematocrit Auto (Bld) [Volum e fraction]on 08-25-2022 Hematocrit (Bld) [Volume fraction] 42.4 % 37-47 [facility] Work Phone: [phone] Laboratory - Chemistry and C hemistry - challengeon 08-25-2022 ALP [Catalytic activity/Vol] 88 U/L 45-117 [facility] Work Phone: [phone] ALT [Catalytic activity/Vol] 30 U/L 13-56 [facility] Work Phone: [phone] CO2 [Moles/Vol] 28.0 mmol/L 21.0-32.0 [facility] Work Phone: Globulin (S) [Mass/Vol] 3.2 g/dL 2.2-4.2 [facility] Work Phone: [phone] Urea nitrogen/Creatinine [Mass ratio] 29.9 mg/mg 10-20 [facility] Work Phone: [phone] Laboratory - Hematology and Cell countson 08-25-2022 Erythrocyte distribution width (RBC) [Entitic vol] 42.0 fL 35.1-43.9 [facility] Work Phone: [phone] Erythrocyte distribution width (RBC) [Ratio] 12.4 % 11.6-14.6 [facility] Work Phone: [phone] Immature granulocytes/100 WBC (Bld) 0.500 % 0.0-0.9 [facility] Work Phone: [phone] Comment on above: IG% - Immature Granu locytes (promyelocytes, myelocytes and metamyelocytes) > 1% indicates that a LEFT SHIFT is Present. MCH (RBC) [Entitic mass] 31.3 pg 27.0-32.0 [facility] Work Phone: [phone] Nucleated RBC/100 WBC (Bld) [Ratio] 0 % 0-5 [facility] Work Phone: [phone] MCHC Auto (RBC) [Mass/Vol]on 08-25-2022 MCHC (RBC) [Mass/Vol] 34.0 g/dL 32-36 [facility] Work Phone: [phone] Panel Informationon 08-25 Estimated GFR (MDRD) Amer 76 mL/min >60 [facility] Work Phone: [phone] Comment on above: GFR Calc Estimated GFR (MDRD) Non-Af Amer 63 mL/min >60 [facility] Work Phone: [phone] Comment on above: Non- GFR Calc Platelets bldon 08-25-2022 Platelets (Bld) [#/Vol] 313 10*3/uL 150-450 [facility] Work Phone: [phone] Serum or plasma albumin caitlin urement (mass/volume)on 08-25-2022 Albumin [Mass/Vol] 4.0 g/dL 3.2-5.0 [facility] Work Phone: [phone] Serum or plasma albumin/glob ulin mass ratioon 08-25-2022 Albumin/Globulin [Mass ratio] 1.2 {ratio} 0.9-2.4 [facility] Work Phone: [phone] Serum or plasma calcium caitlin urement (mass/volume)on 08-25-2022 Calcium [Mass/Vol] 9.2 mg/dL 8.5-10.1 [facility] Work Phone: [phone] Serum or plasma cholesterol in HDL measurement (mass/volume)on 08-25-2022 Cholesterol in HDL [Mass/Vol] 51 mg/dL >40 [facility] Work Phone: Comment on above: The drugs N-Acetylcy steine and Metamizole may falsely depress this assay. Reference Range HDL <40 mg/dL Low HDL Cholesterol HDL >or= 60 mg/dL High HDL Cholesterol Serum or plasma cholesterol in VLDL measurement (mass/volume)on 08-25-2022 Cholesterol in VLDL [Mass/Vol] 55 mg/dL 5-40 [facility] Work Phone: [phone] Serum or plasma creatinine m easurement (mass/volume)on 08-25-2022 Creatinine [Mass/Vol] 0.94 mg/dL 0.55-1.02 [facility] Work Phone: Comment on above: The validity of the calculated GFR & GFRAA in patients over 70 years has not been determined. Clinical correlation is essential. Serum or plasma low density lipoprotein (LDL) cholesterol measurement (mass/volume)on 08-25-2022 Cholesterol in LDL [Mass/Vol] 96 mg/dL 0-130 [facility] Work Phone: [phone] Serum or plasma urea nitroge n measurement (mass/volume)on 08-25-2022 Urea nitrogen [Mass/Vol] 28 mg/dL 7-18 [facility] Work Phone: [phone] Thin prep Papanicolaou smear with manual screeningon 08-25-2022 Thin prep Papanicolaou smear with manual screening 19 U/L 15-37 [facility] Work Phone: [phone] Thin prep Papanicolaou smear with manual screening 5 5-15 [facility] Work Phone: Whole blood hemoglobin A1c/t otal hemoglobin ratio (mass fraction)on 08-25-2022 HbA1c (Bld) [Mass fraction] 6.8 % 3.8-5.6 [facility] Work Phone: Comment on above: Normal < 5.7 % Predi abetic 5.7 - 6.4 % Diabetic >or= 6.5 % Please note range changes. Clinical Summary: Melissa boggs 12-23-2021 [facility] OP Visit Invalid Interpretation Code [facility] Work Phone: Office Visit: Postop - 1st v jorgitot, Rm: 3on 12-23-2021 NEGATED: Highlighted rowxray history of the left knee on 09/17/2021 at [facility] Invalid Interpretation Code [facility] Work Phone: Clinic Note - Heme Oncon Clinic Note - Heme Onc Cancer History: Treatment Synopsis: Accidentally discovered SLL, on cecal polyp, on routine colonoscopy in August 2016 History of present illness: The patient is a 66-year-old woman whose mother passed from metastatic CA cecum. The patient is episcopal in obtaining colonoscopies. A recent colonoscopy by you found a 4 mm sessile ascending colonic polyp, two 2 mm sigmoid colonic polyps. Histology of cecal polyp revealed dense lymphoid infiltrate consisting of small lymphocytes composed of B lymphocytes positive for CD5, CD23, and BCL-2 and negative for CD10 and cyclin D1. The ascending colonic polyp and sigmoid colonic polyp did not reveal any abnormalities. The patient is asymptomatic. You referred her to me for further evaluation and management. The patient had come for follow-up on 05/18/2019. The patient has returned after a hiatus of 2.5 years. Apparently the patient had a mammogram on 05/04/2019 and it revealed possible lymph node in the left axilla but there was no abnormality in the breast itself. There is a palpable lymph node in the left axilla. Since last evaluation, the patient has done reasonably well. She did have left ear infection which resolved with therapy. History of Present Illness: ID Statement: MARILIA GUZMAN is a 71 year old Female Chief Complaint: follow-up Interval History: The patient and her had come for a follow up on 06/14/2021 regarding her history of CLL / SLL. She reports doing well and denies any symptoms such as weight loss, fevers, night sweats and GI complaints. Review of systems: Gen.: No weight loss, fever, chills, or night sweats. EENT: No visual changes, eye pain, ear pain, changes in hearing, sore throat, or hoarseness. Cardiac: No chest pain or palpitations. Pulmonary: No shortness of breath, wheezing, or cough. Heme: No easy bleeding or bruising. GI: Positive abdominal bloating. No abdominal pain. No n/v/d. : No burning with urination or increased frequency. No hematuria. Musculoskeletal: No joint swelling or joint pains. Skin: No rashes or lesions. Neck: No lumps or swollen glands. Breast: No lumps or pain. Neuro: No headaches, seizures, or tremor. Psychiatry: No anxiety, depression, or insomnia. Past medical history 1. CLL 2. HTN 3. DM Past surgical history 1. Cholecystectomy 2. 3. EVER-BSO Last mammogram was 7 years ago. Last colonoscopy was 1 year ago. Review of Systems: System ReviewAll other systems have been reviewed and are negative for complaint. ConstitutionalNEGATIVE : Fever, Chills, Anorexia, Weight Loss, Malaise EyesNEGATIVE: Blurry Vision, Drainage, Diploplia, Redness, Vision Loss/ Change ENMTNEGATIVE: Nasal Discharge, Nasal Congestion, Ear Pain, Mouth Pain, Throat Pain RespiratoryNEGATIVE: Dry Cough, Productive Cough, Hemoptysis, Wheezing, Shortness of Breath CardiologyNEGATIVE: Chest Pain, Dyspnea on Exertion, Orthopnea, Palpitations, Syncope GastrointestinalNEGATI VE: Abdominal Pain, Constipation, Diarrhea, Nausea, Vomiting Comments abdominal bloating GenitourinaryNEGATIVE: Discharge, Dysuria, Flank Pain, Frequency, Hematuria MusculoskeletalNEGATIV E: Decreased ROM, Pain, Swelling, Stiffness, Weakness NeurologicalNEGATIVE: Dizziness, Confusion, Headache, Seizures, Syncope PsychiatricNEGATIVE: Mood Changes, Anxiety, Hallucinations, Sleep Changes, Suicidal Ideas SkinNEGATIVE: Mass, Pain, Pruritus, Rash, Ulcer EndocrineNEGATIVE: Heat Intolerance, Cold Intolerance, Sweat, Polyuria, Thirst Hematologic/LymphNEGAT YENNY: Anemia, Bruising, Easy Bleeding, Night Sweats, Petechiae Allergic/ImmunologicNE GATIVE: Anaphylaxis, Itchy/ Teary Eyes, Itching, Sneezing, Swelling BreastNEGATIVE: Pain, Mass, Discharge, Nipple Itching, Gynecomastia Allergies and Intolerances: Intolerances: false nail adhesive: Environment, Unknown, Active Outpatient Medication Profile: * Patient Currently Takes Medications as of 14-Jun-2021 13:56 documented in Structured Notes Vitamin D3 2000 intl units oral capsule: Last Dose Taken: , 1 cap(s) orally once a day [place]st-3: Last Dose Taken: , orally B Complex 50: Last Dose Taken: meloxicam 15 mg oral tablet: Last Dose Taken: , 1 tab(s) orally once a day metFORMIN 500 mg oral tablet, extended release: Last Dose Taken: , orally 3 times a day Jardiance 25 mg oral tablet: Last Dose Taken: , 1 tab(s) orally once a day (in the morning) lisinopril-hydrochloro thiazide 20 mg-12.5 mg oral tablet: Last Dose Taken: , 0.5 tab(s) orally once a day Medical History: DM (diabetes mellitus): ICD-10: E11.9, Status: Active HTN (hypertension): ICD-10: I10, Status: Active CLL (chronic lymphocytic leukemia): ICD-10: C91.90, Status: Active Surg History: S/P EVER-BSO: ICD-10: Z90.710, Status: Active History of section: ICD-10: Z98.891, Status: Active S/P cholecystec (more content not included)... Normal [facility] Note - Intakeon 06-14 Clinic Note - Intake Patient Visit Information: Visit TypeFollow Up Visit Patient Statesfollow up Source of Informationpatient Accompanied byspouse Admission Information: Admission Since Last VisitNo Vital Signs: Temp (degrees C)36.5 degrees C Temperaturecore Heart Rate (beats/min)73 beats per minute Respiration (breaths/min)18 breath per minute BP Systolic (mm Hg)112 mmHg BP Diastolic (mm Hg)76 mmHg BP Mean (mm Hg)88 mmHg Height in cm158.1 centimeter(s) Height Methodper last note Weight in kg64.6 kilogram(s) Weight Methodstanding scale BMI (kg/m2)25.8 kg/M2 BSA (m2)1.68 M2 SpO2 (%)99 % SpO2 Patient Onroom air Pain Screening: Patient States Painno (0) Intolerances: false nail adhesive: Environment, Unknown, Active Outpatient Medication Profile: * Patient Currently Takes Medications as of 14-Jun-2021 13:56 documented in Structured Notes Vitamin D3 2000 intl units oral capsule: Last Dose Taken: , 1 cap(s) orally once a day Hurst-3: Last Dose Taken: , orally B Complex 50: Last Dose Taken: meloxicam 15 mg oral tablet: Last Dose Taken: , 1 tab(s) orally once a day metFORMIN 500 mg oral tablet, extended release: Last Dose Taken: , orally 3 times a day Jardiance 25 mg oral tablet: Last Dose Taken: , 1 tab(s) orally once a day (in the morning) lisinopril-hydrochloro thiazide 20 mg-12.5 mg oral tablet: Last Dose Taken: , 0.5 tab(s) orally once a day Notification: NotificationsAll annual screens currently due. Travel History: COVID-19 Screening Completedno exposure or symptoms Travel or ExposureNO travel to International locations in the past 30 days Falls: Have you fallen in the last 6 monthsno Do you have a fear of fallingno Do you feel you need assistanceno Is the patient using an assistive deviceno Electronic Signatures: Teresa Still (Endocyte ASST) (Signed 14-Jun-2021 13:56) Authored: Patient Visit Information, Vital Signs, Allergies, Outpatient Medication Profile, Notification, Travel History, Falls Last Updated: 14-Jun-2021 13:56 by Teresa Still (Endocyte ASST) Normal [facility] RANCHO PATH REVIEWon 05-16-2021 PATH REVIEW-RANCHO ROSALINA Normal [facility] Comment on above: Result Comment: By h er/his signature above, the Pathologist listed as making the final interpretation certifies that she/he has personally reviewed this case. Performed By: #### B 2MIC #### [facility] [address] [place] [address] PROTEIN ELECTROPHORESIS + IM MUNOFIXATION, SERUMon 05-16-2021 IMMUNOFIXATION INTERP NORMAL Normal [facility] Comment on above: Result Comment: No m onoclonal proteins detected by immunofixation. Performed By: #### B 2MIC #### [facility] [address] [place] [address] INTERPRETATION NORMAL Normal [facility] Comment on above: Performed By: #### B 2MIC #### [facility] [address] [place] [address] SPE PATH REVIEWon 05-16-2021 PATH REVIEW-SPE L.STEMPAK Normal [facility] Comment on above: Result Comment: By h er/his signature above, the Pathologist listed as making the final interpretation certifies that she/he has personally reviewed this case. Performed By: #### B 2MIC #### [facility] [address] [place] [address] KAPPA/LAMBDA FREE LIGHT Ruy DENNEY 05-14-2021 FREE KAPPA LIGHT CHAINS,S 2.07 mg/dL High 0.33 - 1.94 [facility] Comment on above: Performed By: #### K BOWMAN #### [facility] [address] [place] [address] FREE KAPPA/LAMBDA RATIO,S 1.36 Normal 0.26 - 1.65 [facility] Comment on above: Result Comment: Unde tected antigen excess is a rare event but cannot be excluded. If these free light chain results do not agree with other clinical or laboratory findings, or if the sample is from a patient that has previously demonstrated antigen excess, the result must be checked by retesting at a higher sample dilution. Results should always be interpreted in conjunction with other laboratory tests and clinical evidence; any anomalies should be discussed with the testing laboratory. Performed By: #### K BOWMAN #### [facility] [address] [place] [address] FREE LAMBDA LIGHT CHAIN,S 1.52 mg/dL Normal 0.57 - 2.63 [facility] Comment on above: Performed By: #### K BOWMAN #### [facility] [address] [place] [address] PROTEIN ELECTROPHORESIS + IM MUNOFIXATION, SERUMon 05-14-2021 Albumin [Mass/Vol] 4.4 g/dL Normal 3.4 - 5.0 [facility] Comment on above: Performed By: #### B 2MIC #### [facility] [address] [place] [address] ALPHA 1 GLOBULIN 0.2 g/dL Normal 0.2 - 0.6 [facility] Comment on above: Performed By: #### B 2MIC #### [facility] [address] [place] [address] ALPHA 2 GLOBULIN 0.6 g/dL Normal 0.4 - 1.1 [facility] Comment on above: Performed By: #### B 2MIC #### [facility] [address] [place] [address] BETA GLOBULIN 0.7 g/dL Normal 0.5 - 1.2 [facility] Comment on above: Performed By: #### B 2MIC #### [facility] [address] [place] [address] GAMMA GLOBULIN 0.7 g/dL Normal 0.5 - 1.4 [facility] Comment on above: Performed By: #### B 2MIC #### [facility] [address] [place] [address] BETA 2 MICROGLOBULINon 05-13 BETA 2 MICROGLOBULIN 2.5 mg/L High 0.7 - 2.2 [facility] Comment on above: Performed By: #### B 2MIC #### [facility] [address] [place] [address] CBC AND DIFFERENTIALon 05-13 % AUTOMATED IMMATURE GRAN 0.4 % Normal 0.0 - 0.9 [facility] Comment on above: Result Comment: Jeannie ture Granulocyte Count (IG) includes promyelocytes, myelocytes and metamyelocytes but does not include bands. Percent differential counts (%) should be interpreted in the context of the absolute cell counts (cells/L). Performed By: #### C BCDF #### [facility] [address] [place] [address] Basophils (Bld) [#/Vol] 0.08 10*3/uL Normal 0.00 - 0.10 [facility] Comment on above: Performed By: #### C BCDF #### [facility] [address] [place] [address] Basophils/100 WBC (Bld) 1.1 % Normal 0.0 - 2.0 [facility] Comment on above: Performed By: #### C BCDF #### [facility] [address] [place] [address] Eosinophils (Bld) [#/Vol] 0.28 10*3/uL Normal 0.00 - 0.70 [facility] Comment on above: Performed By: #### C BCDF #### [facility] [address] [place] [address] Eosinophils/100 WBC (Bld) 3.9 % Normal 0.0 - 6.0 [facility] Comment on above: Performed By: #### C BCDF #### [facility] [address] [place] [address] Erythrocyte distribution width (RBC) [Ratio] 12.6 % Normal 11.5 - 14.5 [facility] Comment on above: Performed By: #### C BCDF #### [facility] [address] [place] [address] Hematocrit (Bld) [Volume fraction] 43.4 % Normal 36.0 - 46.0 [facility] Comment on above: Performed By: #### C BCDF #### [facility] [address] [place] [address] Hemoglobin (Bld) [Mass/Vol] 14.0 g/dL Normal 12.0 - 16.0 [facility] Comment on above: Performed By: #### C BCDF #### [facility] [address] [place] [address] Lymphocytes (Bld) [#/Vol] 1.63 10*3/uL Normal 1.20 - 4.80 [facility] Comment on above: Performed By: #### C BCDF #### [facility] [address] [place] [address] Lymphocytes/100 WBC (Bld) 22.8 % Normal 13.0 - 44.0 [facility] Comment on above: Performed By: #### C BCDF #### [facility] [address] [place] [address] MCHC (RBC) [Mass/Vol] 32.3 g/dL Normal 32.0 - 36.0 [facility] Comment on above: Performed By: #### C BCDF #### [facility] [address] [place] [address] MCV (RBC) [Entitic vol] 96 fL Normal 80 - 100 [facility] Comment on above: Performed By: #### C BCDF #### [facility] [address] [place] [address] Monocytes (Bld) [#/Vol] 0.45 10*3/uL Normal 0.10 - 1.00 [facility] Comment on above: Performed By: #### C BCDF #### [facility] [address] [place] [address] Monocytes/100 WBC (Bld) 6.3 % Normal 2.0 - 10.0 [facility] Comment on above: Performed By: #### C BCDF #### [facility] [address] [place] [address] Neutrophils (Bld) [#/Vol] 4.67 10*3/uL Normal 1.20 - 7.70 [facility] Comment on above: Performed By: #### C BCDF #### [facility] [address] [place] [address] Neutrophils/100 WBC (Bld) 65.5 % Normal 40.0 - 80.0 [facility] Comment on above: Performed By: #### C BCDF #### [facility] [address] [place] [address] NUCLEATED RBC 0.0 /100 WBC Normal 0.0-0.0 [facility] Comment on above: Performed By: #### C BCDF #### [facility] [address] [place] [address] Platelets (Bld) [#/Vol] 230 10*3/uL Normal 150 - 450 [facility] Comment on above: Performed By: #### C BCDF #### [facility] [address] [place] [address] RBC 4.54 x10E12/L Normal 4.00 - 5.20 [facility] Comment on above: Performed By: #### C BCDF #### [facility] [address] [place] [address] WBC (Bld) [#/Vol] 7.1 10*3/uL Normal 4.4 - 11.3 [facility] Comment on above: Performed By: #### C BCDF #### [facility] [address] [place] [address] COMPREHENSIVE PANELon 2020 Albumin [Mass/Vol] 4.5 g/dL Normal 3.4 - 5.0 [facility] Comment on above: Performed By: #### C MP #### [facility] [address] [place] [address] ALP [Catalytic activity/Vol] 78 U/L Normal 33 - 136 [facility] Comment on above: Performed By: #### C MP #### [facility] [address] [place] [address] ALT [Catalytic activity/Vol] 18 U/L Normal 7 - 45 [facility] Comment on above: Result Comment: Amber ents treated with Sulfasalazine may generate falsely decreased results for ALT. Performed By: #### C MP #### [facility] [address] [place] [address] Anion gap [Moles/Vol] 16 mmol/L Normal 10 - 20 [facility] Comment on above: Performed By: #### C MP #### [facility] [address] [place] [address] AST [Catalytic activity/Vol] 18 U/L Normal 9 - 39 [facility] Comment on above: Performed By: #### C MP #### [facility] [address] [place] [address] Bilirubin [Mass/Vol] 0.8 mg/dL Normal 0.0 - 1.2 [facility] Comment on above: Performed By: #### C MP #### [facility] [address] [place] [address] Calcium [Mass/Vol] 9.9 mg/dL Normal 8.6 - 10.6 [facility] Comment on above: Performed By: #### C MP #### [facility] [address] [place] [address] Chloride [Moles/Vol] 102 mmol/L Normal 98 - 107 [facility] Comment on above: Performed By: #### C MP #### [facility] [address] [place] [address] Creatinine [Mass/Vol] 0.97 mg/dL Normal 0.50 - 1.05 [facility] Comment on above: Performed By: #### C MP #### [facility] [address] [place] [address] GFR- AM. 69 mL/min/1.73m2 Normal >60 [facility] Comment on above: Result Comment: CALC ULATIONS OF ESTIMATED GFR ARE PERFORMED USING THE MDRD STUDY EQUATION FOR THE IDMS-TRACEABLE CREATININE METHODS. CLIN CHEM 2007;53:766-72 Performed By: #### C MP #### [facility] [address] [place] [address] GFR-NON AM. 57 mL/min/1.73m2 Abnormal >60 [facility] Comment on above: Performed By: #### C MP #### [facility] [address] [place] [address] Glucose [Mass/Vol] 193 mg/dL High 74 - 99 [facility] Comment on above: Performed By: #### C MP #### [facility] [address] [place] [address] HCO3 (Bld) [Moles/Vol] 26 mmol/L Normal 21 - 32 [facility] Comment on above: Performed By: #### C MP #### [facility] [address] [place] [address] Potassium [Moles/Vol] 4.5 mmol/L Normal 3.5 - 5.3 [facility] Comment on above: Performed By: #### C MP #### [facility] [address] [place] [address] Protein [Mass/Vol] 6.5 g/dL Normal 6.4 - 8.2 [facility] Comment on above: Performed By: #### C MP #### [facility] [address] [place] [address] Performed By: #### B 2MIC #### [facility] [address] [place] [address] Sodium [Moles/Vol] 139 mmol/L Normal 136 - 145 [facility] Comment on above: Performed By: #### C MP #### [facility] [address] [place] [address] Urea nitrogen [Mass/Vol] 28 mg/dL High 6 - 23 [facility] Comment on above: Performed By: #### C MP #### [facility] [address] [place] [address] LDHon 05-13-2021 LDH 152 U/L Normal 84 - 246 [facility] Comment on above: Performed By: #### L DH #### [facility] [address] [place] [id number] Clinic Note - Heme Oncon Clinic Note - Heme Onc Cancer History: Treatment Synopsis: Accidentally discovered SLL, on cecal polyp, on routine colonoscopy in August 2016 History of present illness: The patient is a 66-year-old woman whose mother passed from metastatic CA cecum. The patient is episcopal in obtaining colonoscopies. A recent colonoscopy by you found a 4 mm sessile ascending colonic polyp, two 2 mm sigmoid colonic polyps. Histology of cecal polyp revealed dense lymphoid infiltrate consisting of small lymphocytes composed of B lymphocytes positive for CD5, CD23, and BCL-2 and negative for CD10 and cyclin D1. The ascending colonic polyp and sigmoid colonic polyp did not reveal any abnormalities. The patient is asymptomatic. You referred her to me for further evaluation and management. The patient had come for follow-up on 05/18/2019. The patient has returned after a hiatus of 2.5 years. Apparently the patient had a mammogram on 05/04/2019 and it revealed possible lymph node in the left axilla but there was no abnormality in the breast itself. There is a palpable lymph node in the left axilla. Since last evaluation, the patient has done reasonably well. She did have left ear infection which resolved with therapy. History of Present Illness: ID Statement: maddy is a () day old maddy Chief Complaint: follow-up Interval History: The patient and her had come for a follow up on 11/23/2020 regarding her history of CLL / SLL. She reports doing well and denies any symptoms such as weight loss, fevers, night sweats and GI complaints. Review of systems: Gen.: No weight loss, fever, chills, or night sweats. EENT: No visual changes, eye pain, ear pain, changes in hearing, sore throat, or hoarseness. Cardiac: No chest pain or palpitations. Pulmonary: No shortness of breath, wheezing, or cough. Heme: No easy bleeding or bruising. GI: Positive abdominal bloating. No abdominal pain. No n/v/d. : No burning with urination or increased frequency. No hematuria. Musculoskeletal: No joint swelling or joint pains. Skin: No rashes or lesions. Neck: No lumps or swollen glands. Breast: No lumps or pain. Neuro: No headaches, seizures, or tremor. Psychiatry: No anxiety, depression, or insomnia. Past medical history 1. CLL 2. HTN 3. DM Past surgical history 1. Cholecystectomy 2. 3. EVER-BSO Last mammogram was 7 years ago. Last colonoscopy was 1 year ago. Review of Systems: System ReviewAll other systems have been reviewed and are negative for complaint. ConstitutionalNEGATIVE : Fever, Chills, Anorexia, Weight Loss, Malaise EyesNEGATIVE: Blurry Vision, Drainage, Diploplia, Redness, Vision Loss/ Change ENMTNEGATIVE: Nasal Discharge, Nasal Congestion, Ear Pain, Mouth Pain, Throat Pain RespiratoryNEGATIVE: Dry Cough, Productive Cough, Hemoptysis, Wheezing, Shortness of Breath CardiologyNEGATIVE: Chest Pain, Dyspnea on Exertion, Orthopnea, Palpitations, Syncope GastrointestinalNEGATI VE: Abdominal Pain, Constipation, Diarrhea, Nausea, Vomiting Comments abdominal bloating GenitourinaryNEGATIVE: Discharge, Dysuria, Flank Pain, Frequency, Hematuria MusculoskeletalNEGATIV E: Decreased ROM, Pain, Swelling, Stiffness, Weakness NeurologicalNEGATIVE: Dizziness, Confusion, Headache, Seizures, Syncope PsychiatricNEGATIVE: Mood Changes, Anxiety, Hallucinations, Sleep Changes, Suicidal Ideas SkinNEGATIVE: Mass, Pain, Pruritus, Rash, Ulcer EndocrineNEGATIVE: Heat Intolerance, Cold Intolerance, Sweat, Polyuria, Thirst Hematologic/LymphNEGAT YENNY: Anemia, Bruising, Easy Bleeding, Night Sweats, Petechiae Allergic/ImmunologicNE GATIVE: Anaphylaxis, Itchy/ Teary Eyes, Itching, Sneezing, Swelling BreastNEGATIVE: Pain, Mass, Discharge, Nipple Itching, Gynecomastia Allergies and Intolerances: Intolerances: false nail adhesive: Environment, Unknown, Active Outpatient Medication Profile: * Patient Currently Takes Medications as of 25-May-2020 15:14 documented in Structured Notes Vitamin D3 2000 intl units oral capsule: 1 cap(s) orally once a day Hurst-3: orally B Complex 50: meloxicam 15 mg oral tablet: 1 tab(s) orally once a day metFORMIN 500 mg oral tablet, extended release: orally 3 times a day Jardiance 25 mg oral tablet: 1 tab(s) orally once a day (in the morning) lisinopril-hydrochloro thiazide 20 mg-12.5 mg oral tablet: 0.5 tab(s) orally once a day Medical History: DM (diabetes mellitus): ICD-10: E11.9, Status: Active HTN (hypertension): ICD-10: I10, Status: Active CLL (chronic lymphocytic leukemia): ICD-10: C91.90, Status: Active Surg History: S/P EVER-BSO: ICD-10: Z90.710, Status: Active History of section: ICD-10: Z98.891, Status: Active S/P cholecystectomy: ICD-10: Z90.49, Status: Active Family History: Cancer, colon (Mother Age Unknown) Social History: Social Substance History: Social Hi (more content not included)... Normal [facility] RANCHO PATH REVIEWon 11-14-2020 PATH REVIEW-RANCHO L.STEMPAK Normal [facility] Comment on above: Result Comment: By h er/his signature above, the Pathologist listed as making the final interpretation certifies that she/he has personally reviewed this case. Performed By: #### P R34 #### [facility] [address] [place] [address] PROTEIN ELECTROPHORESIS + IM MUNOFIXATION, SERUMon 11-14-2020 IMMUNOFIXATION INTERP NORMAL Normal [facility] Comment on above: Result Comment: No m onoclonal proteins detected by immunofixation. Performed By: #### I FE2 #### [facility] [address] [place] [address] INTERPRETATION NORMAL Normal [facility] Comment on above: Performed By: #### I FE2 #### [facility] [address] [place] [address] MONOCLONAL PROTEIN Not detected Normal [facility] Comment on above: Performed By: #### I FE2 #### [facility] [address] [place] [address] SPE PATH REVIEWon 11-14-2020 PATH REVIEW-SPE L.STEMPAK Normal [facility] Comment on above: Result Comment: By h er/his signature above, the Pathologist listed as making the final interpretation certifies that she/he has personally reviewed this case. Performed By: #### P R12 #### [facility] [address] [place] [address] BETA 2 MICROGLOBULINon 11-13 BETA 2 MICROGLOBULIN 2.2 mg/L Normal 0.7 - 2.2 [facility] Comment on above: Performed By: #### B 2MIC #### [facility] [address] [place] [address] KAPPA/LAMBDA FREE LIGHT RUSSEL BoggsSon 11-13-2020 FREE KAPPA/LAMBDA RATIO,S 0.94 Normal 0.26 - 1.65 [facility] Comment on above: Performed By: #### B 2MIC #### [facility] [address] [place] [address] FREE LAMBDA LIGHT CHAIN,S 1.49 mg/dL Normal 0.57 - 2.63 [facility] Comment on above: Performed By: #### B 2MIC #### [facility] [address] [place] [address] FREE KAPPA LIGHT CHAINS,S 1.40 mg/dL Normal 0.33 - 1.94 [facility] Comment on above: Performed By: #### B 2MIC #### [facility] [address] [place] [address] PROTEIN ELECTROPHORESIS + IM MUNOFIXATION, SERUMon 11-13-2020 Albumin [Mass/Vol] 4.2 g/dL Normal 3.4 - 5.0 [facility] Comment on above: Performed By: #### I FE2 #### [facility] [address] [place] [address] ALPHA 1 GLOBULIN 0.2 g/dL Normal 0.2 - 0.6 [facility] Comment on above: Performed By: #### I FE2 #### [facility] [address] [place] [address] ALPHA 2 GLOBULIN 0.5 g/dL Normal 0.4 - 1.1 [facility] Comment on above: Performed By: #### I FE2 #### [facility] [address] [place] [address] BETA GLOBULIN 0.6 g/dL Normal 0.5 - 1.2 [facility] Comment on above: Performed By: #### I FE2 #### [facility] [address] [place] [address] GAMMA GLOBULIN 0.6 g/dL Normal 0.5 - 1.4 [facility] Comment on above: Performed By: #### I FE2 #### [facility] [address] [place] [address] CBC AND DIFFERENTIALon 11-12 % AUTOMATED IMMATURE GRAN 0.5 % Normal 0.0 - 0.9 [facility] Comment on above: Result Comment: Jeannie ture Granulocyte Count (IG) includes promyelocytes, myelocytes and metamyelocytes but does not include bands. Percent differential counts (%) should be interpreted in the context of the absolute cell counts (cells/L). Performed By: #### B 2MIC #### [facility] [address] [place] [address] Basophils (Bld) [#/Vol] 0.09 10*3/uL Normal 0.00 - 0.10 [facility] Comment on above: Performed By: #### B 2MIC #### [facility] [address] [place] [address] Basophils/100 WBC (Bld) 1.4 % Normal 0.0 - 2.0 [facility] Comment on above: Performed By: #### B 2MIC #### [facility] [address] [place] [address] Eosinophils (Bld) [#/Vol] 0.19 10*3/uL Normal 0.00 - 0.70 [facility] Comment on above: Performed By: #### B 2MIC #### [facility] [address] [place] [address] Eosinophils/100 WBC (Bld) 2.9 % Normal 0.0 - 6.0 [facility] Comment on above: Performed By: #### B 2MIC #### [facility] [address] [place] [address] Erythrocyte distribution width (RBC) [Ratio] 12.1 % Normal 11.5 - 14.5 [facility] Comment on above: Performed By: #### B 2MIC #### [facility] [address] [place] [address] Hematocrit (Bld) [Volume fraction] 41.4 % Normal 36.0 - 46.0 [facility] Comment on above: Performed By: #### B 2MIC #### [facility] [address] [place] [address] Hemoglobin (Bld) [Mass/Vol] 13.8 g/dL Normal 12.0 - 16.0 [facility] Comment on above: Performed By: #### B 2MIC #### [facility] [address] [place] [address] Lymphocytes (Bld) [#/Vol] 2.02 10*3/uL Normal 1.20 - 4.80 [facility] Comment on above: Performed By: #### B 2MIC #### [facility] [address] [place] [address] Lymphocytes/100 WBC (Bld) 30.8 % Normal 13.0 - 44.0 [facility] Comment on above: Performed By: #### B 2MIC #### [facility] [address] [place] [address] MCHC (RBC) [Mass/Vol] 33.3 g/dL Normal 32.0 - 36.0 [facility] Comment on above: Performed By: #### B 2MIC #### [facility] [address] [place] [address] MCV (RBC) [Entitic vol] 95 fL Normal 80 - 100 [facility] Comment on above: Performed By: #### B 2MIC #### [facility] [address] [place] [address] Monocytes (Bld) [#/Vol] 0.48 10*3/uL Normal 0.10 - 1.00 [facility] Comment on above: Performed By: #### B 2MIC #### [facility] [address] [place] [address] Monocytes/100 WBC (Bld) 7.3 % Normal 2.0 - 10.0 [facility] Comment on above: Performed By: #### B 2MIC #### [facility] [address] [place] [address] Neutrophils (Bld) [#/Vol] 3.74 10*3/uL Normal 1.20 - 7.70 [facility] Comment on above: Performed By: #### B 2MIC #### [facility] [address] [place] [address] Neutrophils/100 WBC (Bld) 57.1 % Normal 40.0 - 80.0 [facility] Comment on above: Performed By: #### B 2MIC #### [facility] [address] [place] [address] NUCLEATED RBC 0.0 /100 WBC Normal 0.0-0.0 [facility] Comment on above: Performed By: #### B 2MIC #### [facility] [address] [place] [address] Platelets (Bld) [#/Vol] 199 10*3/uL Normal 150 - 450 [facility] Comment on above: Performed By: #### B 2MIC #### [facility] [address] [place] [address] RBC 4.34 x10E12/L Normal 4.00 - 5.20 [facility] Comment on above: Performed By: #### B 2MIC #### [facility] [address] [place] [address] WBC (Bld) [#/Vol] 6.6 10*3/uL Normal 4.4 - 11.3 [facility] Comment on above: Performed By: #### B 2MIC #### [facility] [address] [place] [address] COMPREHENSIVE PANELon 2020 Albumin [Mass/Vol] 4.4 g/dL Normal 3.4 - 5.0 [facility] Comment on above: Performed By: #### C MP #### [facility] [address] [place] [address] ALP [Catalytic activity/Vol] 66 U/L Normal 33 - 136 [facility] Comment on above: Performed By: #### C MP #### [facility] [address] [place] [address] ALT [Catalytic activity/Vol] 16 U/L Normal 7 - 45 [facility] Comment on above: Result Comment: Amber ents treated with Sulfasalazine may generate falsely decreased results for ALT. Performed By: #### C MP #### [facility] [address] [place] [address] Anion gap [Moles/Vol] 13 mmol/L Normal 10 - 20 [facility] Comment on above: Performed By: #### C MP #### [facility] [address] [place] [address] AST [Catalytic activity/Vol] 14 U/L Normal 9 - 39 [facility] Comment on above: Performed By: #### C MP #### [facility] [address] [place] [address] Bilirubin [Mass/Vol] 0.8 mg/dL Normal 0.0 - 1.2 [facility] Comment on above: Performed By: #### C MP #### [facility] [address] [place] [address] Calcium [Mass/Vol] 9.8 mg/dL Normal 8.6 - 10.6 [facility] Comment on above: Performed By: #### C MP #### [facility] [address] [place] [address] Chloride [Moles/Vol] 103 mmol/L Normal 98 - 107 [facility] Comment on above: Performed By: #### C MP #### [facility] [address] [place] [address] Creatinine [Mass/Vol] 0.95 mg/dL Normal 0.50 - 1.05 [facility] Comment on above: Performed By: #### C MP #### [facility] [address] [place] [address] GFR- AM. 70 mL/min/1.73m2 Normal >60 [facility] Comment on above: Result Comment: CALC ULATIONS OF ESTIMATED GFR ARE PERFORMED USING THE MDRD STUDY EQUATION FOR THE IDMS-TRACEABLE CREATININE METHODS. CLIN CHEM 2007;53:766-72 Performed By: #### C MP #### [facility] [address] [place] [address] GFR-NON AM. 58 mL/min/1.73m2 Abnormal >60 [facility] Comment on above: Performed By: #### C MP #### [facility] [address] [place] [address] Glucose [Mass/Vol] 146 mg/dL High 74 - 99 [facility] Comment on above: Performed By: #### C MP #### [facility] [address] [place] [address] HCO3 (Bld) [Moles/Vol] 27 mmol/L Normal 21 - 32 [facility] Comment on above: Performed By: #### C MP #### [facility] [address] [place] [address] Potassium [Moles/Vol] 4.2 mmol/L Normal 3.5 - 5.3 [facility] Comment on above: Performed By: #### C MP #### [facility] [address] [place] [address] Sodium [Moles/Vol] 139 mmol/L Normal 136 - 145 [facility] Comment on above: Performed By: #### C MP #### [facility] [address] [place] [address] Urea nitrogen [Mass/Vol] 24 mg/dL High 6 - 23 [facility] Comment on above: Performed By: #### C MP #### [facility] [address] [place] [address] LDHon 11-12-2020 LDH 143 U/L Normal 84 - 246 [facility] Comment on above: Performed By: #### L DH #### [facility] [address] [place] [address] PROTEIN ELECTROPHORESIS + IM MUNOFIXATION, SERUMon 11-12-2020 Protein [Mass/Vol] 6.1 g/dL Low 6.4 - 8.2 [facility] Comment on above: Performed By: #### I FE2 #### [facility] [address] [place] [address] Performed By: #### C MP #### [facility] [address] [place] [address] Clinical Summary: HMSPatient IDon 11-07-2019 [facility] Work Phone: Office Visit: New - 1st visi t with practice, Rm: 4on 11-07-2019 NEGATED: Highlighted rowTSH Qn of the left shoulder on 04/20/2019 at [facility] [place] Work Phone: Clinical Lists Update: Prelo ad Extendedon 11-03-2019 Tobacco smoking status NHIS Tobacco smoking status NHIS [facility] Work Phone: Clinical Summary: Data Submi tted by Patient in Portalon 11-03-2019 #DEP CHLDRN Yes [facility] Work Phone: 3+ETOHDAILY less than [address] [facility] Work Phone: ASTHEHSZHOUS [address] [facility] Work Phone: BROTHERS PMH Diabetes - non-insul in dependent, Heart disease [facility] Work Phone: DEATHCAU DAD Heart disease [facility] Work Phone: DEATHCAU MOM cancer [facility] Work Phone: DEP ALG LIST I don't have any river g allergies.,I don't have any food allergies.,Plant pollens (Hay Fever) [facility] Work Phone: DEP DAD PMH Diabetes - non-insul in dependent, Heart disease, High blood pressure [facility] Work Phone: DEP DRUG USE No 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 Work Phone: DEP ETOH USE Yes [facility] Work Phone: DEP EXERCISE Yes [facility] Work Phone: DEP EXERTYP walking, yoga [facility] Work Phone: DEP MED LIST Hydrochlorothiazide / Lisinopril 12.5 mg;20 mg Tab, 1 times per day,Metformin / Repaglinide 500 mg;1 mg Tab, 3 times per day,Meloxicam 15 mg Tab, [address] [facility] Work Phone: DEP MOM PMH Cancer, Obesity [facility] Work Phone: DEP PMH Arthritis, Diabetes - non-insulin dependent, Hypertension [facility] Work Phone: DEP SH CSMO never smoker [facility] Work Phone: DEP SH MAST 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 Work Phone: DEP SURGERY section, Gallbladder surgery, Hysterectomy [facility] Work Phone: DEPEXER FREQ [address] [facility] Work Phone: ETOHPERFRM beer, wine [facility] Work Phone: Qinec 1 day per week I kory e a yoga class. A couple days a week I take a long walk with the dog. I am however on my feet every day working, climbing steps, taking out heavy trash, carrying equipment, etc. [facility] Work Phone: FATHER A/D [facility] Work Phone: [id number] Take care of grandchildren at least once a week sometimes more [facility] Work Phone: MEDICCOMMNTS Vitafusion D3 and collagen hydrolysate [facility] Work Phone: MOTHER A/D [facility] Work Phone: PREPRGETOH I have a beer or gla ss of wine on holidays or when out with friends. Not often or on a regular basis. [facility] Work Phone: RLATNSHPINFR Self [facility] Work Phone: SISTERS PMH Arthritis, Diabetes - non-insulin dependent, High blood pressure [facility] Work Phone: SWHOUTYPE house [facility] Work Phone: Vital Signs Date Time Vital Sign Value Performing Clinician Facility 07-31-2025 11:01-0500 Body mass index (BMI) [Ratio] 24.52 kg/m2 Dima Cage MD Work Phone: [facility] 07-31-2025 11:01-0500 Body temperature 97.9 [degF] Dima Cage MD Work Phone: [facility] 07-31-2025 11:01-0500 Body weight 60.9 kg Dima Cage MD Work Phone: [facility] 07-31-2025 11:01-0500 Diastolic blood pressure 80 mm[Hg] Dima Cage MD Work Phone: [facility] 07-31-2025 11:01-0500 Heart rate 75 /min Dima Cage MD Work Phone: [facility] 07-31-2025 11:01-0500 Respiratory rate 16 /min Dima Cage MD Work Phone: [facility] 07-31-2025 11:01-0500 SaO2% (BldA) [Mass fraction] 97 % Dima Cage MD Work Phone: [facility] 07-31-2025 11:01-0500 Systolic blood pressure 144 mm[Hg] Dima Cage MD Work Phone: [facility] 05-15-2025 11:32-0400 Body height 157.5 cm Brenda Cortes MD Work Phone: [facility] 05-15-2025 11:32-0400 Body mass index (BMI) [Ratio] 24.14 kg/m2 Brenda Cortes MD Work Phone: [facility] 05-15-2025 11:32-0400 Body weight 59.88 kg Brenda Cortes MD Work Phone: [facility] 05-15-2025 11:32-0400 Diastolic blood pressure 78 mm[Hg] Brenda Cortes MD Work Phone: [facility] 05-15-2025 11:32-0400 Heart rate 68 /min Brenda Cortes MD Work Phone: [facility] 05-15-2025 11:32-0400 Systolic blood pressure 130 mm[Hg] Brenda Cortes MD Work Phone: [facility] 04-20-2025 08:46-0400 Body mass index (BMI) [Ratio] 24.06 kg/m2 Chava Edwards MD Work Phone: [facility] 04-20-2025 08:46-0400 Body temperature 96.6 [degF] Chava Edwards MD Work Phone: [facility] 04-20-2025 08:46-0400 Body weight 59.75 kg Chava Edwards MD Work Phone: [facility] 04-20-2025 08:46-0400 Diastolic blood pressure 74 mm[Hg] Chava Edwards MD Work Phone: [facility] 04-20-2025 08:46-0400 Heart rate 71 /min Chava Edwards MD Work Phone: [facility] 04-20-2025 08:46-0400 Respiratory rate 12 /min Chava Edwards MD Work Phone: [facility] 04-20-2025 08:46-0400 SaO2% (BldA) [Mass fraction] 98 % Chava Edwards MD Work Phone: [facility] 04-20-2025 08:46-0400 Systolic blood pressure 116 mm[Hg] Chava Edwards MD Work Phone: [facility] 02-20-2025 14:42-0400 Body height 157.[address] 02-20-2025 14:42-0400 Body mass index (BMI) [Ratio] 23.23 kg/m2 [address] 02-20-2025 14:42-0400 Body weight 57.[address] 01-30-2025 13:58-0400 Body height 159.1 cm Brenda Cortes MD Work Phone: [facility] 01-30-2025 13:58-0400 Body mass index (BMI) [Ratio] 22.94 kg/m2 Brenda Cortes MD Work Phone: [facility] 01-30-2025 13:58-0400 Body weight 58.06 kg Brenda Cortes MD Work Phone: [facility] 01-30-2025 13:58-0400 Diastolic blood pressure 84 mm[Hg] Brenda Cortes MD Work Phone: [facility] 01-30-2025 13:58-0400 Heart rate 60 /min Brenda Cortes MD Work Phone: [facility] 01-30-2025 13:58-0400 Systolic blood pressure 118 mm[Hg] Brenda Cortes MD Work Phone: [facility] 01-26-2025 13:55-0400 Body mass index (BMI) [Ratio] 22.76 kg/m2 Chava Edwards MD Work Phone: [facility] 01-26-2025 13:55-0400 Body temperature 97.5 [degF] Chava Edwards MD Work Phone: [facility] 01-26-2025 13:55-0400 Body weight 57.6 kg Chava Edwards MD Work Phone: [facility] 01-26-2025 13:55-0400 Diastolic blood pressure 77 mm[Hg] Chava Edwards MD Work Phone: [facility] 01-26-2025 13:55-0400 Heart rate 82 /min Chava Edwards MD Work Phone: [facility] 01-26-2025 13:55-0400 Respiratory rate 16 /min Chava Edwards MD Work Phone: [facility] 01-26-2025 13:55-0400 SaO2% (BldA) [Mass fraction] 97 % Chava Edwards MD Work Phone: [facility] 01-26-2025 13:55-0400 Systolic blood pressure 123 mm[Hg] Chava Edwards MD Work Phone: [facility] 12-13-2024 15:30-0400 Diastolic blood pressure 65 mm[Hg] [address] 12-13-2024 15:30-0400 Heart rate 82 /min [address] 12-13-2024 15:30-0400 Respiratory rate 16 /min [address] 12-13-2024 15:30-0400 SaO2% (BldA) [Mass fraction] 100 % [address] 12-13-2024 15:30-0400 Systolic blood pressure 140 mm[Hg] [address] 12-13-2024 13:24-0400 Body mass index (BMI) [Ratio] 21.73 kg/m2 [address] 12-13-2024 13:24-0400 Body temperature 97.7 [degF] [address] 12-13-2024 13:24-0400 Body weight [address] 11-28-2024 16:55-0400 Body height 160.02 cm Chandlerconchita Calzada [employer] Work Phone: [facility] 11-28-2024 16:55-0400 Body mass index (BMI) [Ratio] 22.4 kg/m2 Chandlerconchita Calzada [employer] Work Phone: [facility] 11-28-2024 16:55-0400 Body temperature 97.5 [degF] Chandlerconchita Calzada [employer] Work Phone: [facility] 11-28-2024 16:55-0400 Body weight 57.6 kg Chandler Calzada [employer] Work Phone: [facility] 11-28-2024 16:55-0400 Diastolic blood pressure 70 mm[Hg] Chandler Calzada [employer] Work Phone: [facility] 11-28-2024 16:55-0400 Heart rate 86 /min Chandlerconchita Calzada [employer] Work Phone: [facility] 11-28-2024 16:55-0400 Respiratory rate 18 /min Chanlder Calzada [employer] Work Phone: [facility] 11-28-2024 16:55-0400 SaO2% (BldA) [Mass fraction] 99 % Chandlerconchita Calzada [employer] Work Phone: [facility] 11-28-2024 16:55-0400 Systolic blood pressure 128 mm[Hg] Chandler Calzada [employer] Work Phone: [facility] 11-21-2024 12:14-0500 Body mass index (BMI) [Ratio] 22.94 kg/m2 Dima Cage MD Work Phone: [facility] 11-21-2024 12:14-0500 Body temperature 95.2 [degF] iDma Cage MD Work Phone: [facility] 11-21-2024 12:14-0500 Body weight 57.8 kg Dima Cage MD Work Phone: [facility] 11-21-2024 12:14-0500 Diastolic blood pressure 78 mm[Hg] Dima Cage MD Work Phone: [facility] 11-21-2024 12:14-0500 Heart rate 78 /min Dima Cage MD Work Phone: [facility] 11-21-2024 12:14-0500 Respiratory rate 16 /min Dima Cage MD Work Phone: [facility] 11-21-2024 12:14-0500 SaO2% (BldA) [Mass fraction] 98 % Dima Cage MD Work Phone: [facility] 11-21-2024 12:14-0500 Systolic blood pressure 134 mm[Hg] Dima Cage MD Work Phone: [facility] 11-17-2024 09:01-0500 Body mass index (BMI) [Ratio] 23.07 kg/m2 [facility] 11-17-2024 09:01-0500 Body temperature 96.8 [degF] [facility] 11-17-2024 09:01-0500 Body weight 58.15 kg [facility] 11-17-2024 09:01-0500 Diastolic blood pressure 87 mm[Hg] [facility] 11-17-2024 09:01-0500 Heart rate 67 /min [facility] 11-17-2024 09:01-0500 Respiratory rate 18 /min [facility] 11-17-2024 09:01-0500 SaO2% (BldA) [Mass fraction] 98 % [facility] 11-17-2024 09:01-0500 Systolic blood pressure 148 mm[Hg] [facility] 11-10-2024 08:56-0500 Body mass index (BMI) [Ratio] 22.93 kg/m2 [facility] 11-10-2024 08:56-0500 Body temperature 96.8 [degF] [facility] 11-10-2024 08:56-0500 Body weight 57.79 kg [facility] 11-10-2024 08:56-0500 Diastolic blood pressure 84 mm[Hg] [facility] 11-10-2024 08:56-0500 Heart rate 76 /min [facility] 11-10-2024 08:56-0500 Respiratory rate 16 /min [facility] 11-10-2024 08:56-0500 SaO2% (BldA) [Mass fraction] 98 % [facility] 11-10-2024 08:56-0500 Systolic blood pressure 133 mm[Hg] [facility] 11-03-2024 08:41-0500 Body mass index (BMI) [Ratio] 22.61 kg/m2 [facility] 11-03-2024 08:41-0500 Body temperature 97.3 [degF] [facility] 11-03-2024 08:41-0500 Body weight 56.97 kg [facility] 11-03-2024 08:41-0500 Diastolic blood pressure 77 mm[Hg] [facility] 11-03-2024 08:41-0500 Heart rate 83 /min [facility] 11-03-2024 08:41-0500 Respiratory rate 16 /min [facility] 11-03-2024 08:41-0500 SaO2% (BldA) [Mass fraction] 98 % [facility] 11-03-2024 08:41-0500 Systolic blood pressure 122 mm[Hg] [facility] 10-27-2024 09:01-0500 Body mass index (BMI) [Ratio] 22.53 kg/m2 [facility] 10-27-2024 09:01-0500 Body temperature 97.2 [degF] [facility] 10-27-2024 09:01-0500 Body weight 56.79 kg [facility] 10-27-2024 09:01-0500 Diastolic blood pressure 89 mm[Hg] [facility] 10-27-2024 09:01-0500 Heart rate 70 /min [facility] 10-27-2024 09:01-0500 Respiratory rate 16 /min [facility] 10-27-2024 09:01-0500 SaO2% (BldA) [Mass fraction] 98 % [facility] 10-27-2024 09:01-0500 Systolic blood pressure 140 mm[Hg] [facility] 10-07-2024 09:17-0500 Body mass index (BMI) [Ratio] 22.86 kg/m2 Rickey Camacho MD Work Phone: [facility] 10-07-2024 09:17-0500 Body temperature 97.7 [degF] Rickey Camacho MD Work Phone: [facility] 10-07-2024 09:17-0500 Body weight 57.61 kg Rickey Camacho MD Work Phone: [facility] 10-07-2024 09:17-0500 Diastolic blood pressure 83 mm[Hg] Rickey Camacho MD Work Phone: [facility] 10-07-2024 09:17-0500 Heart rate 79 /min Rickey Camacho MD Work Phone: [facility] 10-07-2024 09:17-0500 Respiratory rate 18 /min Rickey Camacho MD Work Phone: [facility] 10-07-2024 09:17-0500 SaO2% (BldA) [Mass fraction] 99 % Rickey Camacho MD Work Phone: [facility] 10-07-2024 09:17-0500 Systolic blood pressure 152 mm[Hg] Rickey Camacho MD Work Phone: [facility] 10-03-2024 11:00-0500 Body mass index (BMI) [Ratio] 22.78 kg/m2 Dima Cage MD Work Phone: [facility] 10-03-2024 11:00-0500 Body temperature 96.1 [degF] Dima Cage MD Work Phone: [facility] 10-03-2024 11:00-0500 Body weight 57.4 kg Dima Cage MD Work Phone: [facility] 10-03-2024 11:00-0500 Diastolic blood pressure 79 mm[Hg] Dima Cage MD Work Phone: [facility] 10-03-2024 11:00-0500 Heart rate 82 /min Dima Cage MD Work Phone: [facility] 10-03-2024 11:00-0500 Respiratory rate 16 /min Dima Cage MD Work Phone: [facility] 10-03-2024 11:00-0500 SaO2% (BldA) [Mass fraction] 98 % Dima Cage MD Work Phone: [facility] 10-03-2024 11:00-0500 Systolic blood pressure 128 mm[Hg] Dima Cage MD Work Phone: [facility] 09-27-2024 20:09-0500 Body mass index (BMI) [Ratio] 22.4 kg/m2 Chandler SALMERON Work Phone: [facility] 09-27-2024 20:09-0500 Body temperature 97.7 [degF] Chandlerconchita FishmanCalzada [employer] Work Phone: [facility] 09-27-2024 20:09-0500 Body weight 57.6 kg Chandler Zheng [employer] Work Phone: [facility] 09-27-2024 20:09-0500 Diastolic blood pressure 70 mm[Hg] Chandler Zheng [employer] Work Phone: [facility] 09-27-2024 20:09-0500 Heart rate 84 /min Chandler Zheng [employer] Work Phone: [facility] 09-27-2024 20:09-0500 Respiratory rate 18 /min Chandler Calzada [employer] Work Phone: [facility] 09-27-2024 20:09-0500 SaO2% (BldA) [Mass fraction] 99 % Chandlerconchita FishmanCalzada [employer] Work Phone: [facility] 09-27-2024 20:09-0500 Systolic blood pressure 101 mm[Hg] Chnadler Zheng [employer] Work Phone: [facility] 09-26-2024 10:48-0500 Body mass index (BMI) [Ratio] 22.5 kg/m2 Josie Carpenter MD Work Phone: [facility] 09-26-2024 10:48-0500 Body temperature 97.2 [degF] Josie Carpenter MD Work Phone: [facility] 09-26-2024 10:48-0500 Body weight 56.7 kg Josie Carpenter MD Work Phone: [facility] 09-26-2024 10:48-0500 Diastolic blood pressure 72 mm[Hg] Josie Carpenter MD Work Phone: [facility] 09-26-2024 10:48-0500 Heart rate 78 /min Josie Carpenter MD Work Phone: [facility] 09-26-2024 10:48-0500 Systolic blood pressure 134 mm[Hg] Josie Carpenter MD Work Phone: [facility] 09-12-2024 13:16-0500 Body height 158.8 cm Brenda Cortes MD Work Phone: [facility] 09-12-2024 13:16-0500 Body mass index (BMI) [Ratio] 22.5 kg/m2 Brenda Cortes MD Work Phone: [facility] 09-12-2024 13:16-0500 Body weight 56.7 kg Brenda Cortes MD Work Phone: [facility] 09-12-2024 13:16-0500 Diastolic blood pressure 68 mm[Hg] Brenda Cortes MD Work Phone: [facility] 09-12-2024 13:16-0500 Heart rate 79 /min Brenda Cortes MD Work Phone: [facility] 09-12-2024 13:16-0500 Systolic blood pressure 130 mm[Hg] Brenda Cortes MD Work Phone: [facility] 08-24-2024 10:15-0500 Body temperature 97.3 [degF] Josie Carpenter MD Work Phone: [facility] 08-24-2024 10:15-0500 Diastolic blood pressure 63 mm[Hg] Josie Carpenter MD Work Phone: [facility] 08-24-2024 10:15-0500 Heart rate 65 /min Jsoie Carpenter MD Work Phone: [facility] 08-24-2024 10:15-0500 Respiratory rate 18 /min Josie Carpenter MD Work Phone: [facility] 08-24-2024 10:15-0500 SaO2% (BldA) [Mass fraction] 99 % Josie Carpenter MD Work Phone: [facility] 08-24-2024 10:15-0500 Systolic blood pressure 125 mm[Hg] Josie Carpenter MD Work Phone: [facility] 08-24-2024 06:34-0500 Body height 159 cm Josie Carpenter MD Work Phone: [facility] 08-24-2024 06:34-0500 Body mass index (BMI) [Ratio] 23.14 kg/m2 Josie Carpenter MD Work Phone: [facility] 08-24-2024 06:34-0500 Body weight 58.5 kg Josie Carpenter MD Work Phone: [facility] 08-08-2024 15:27-0500 Body mass index (BMI) [Ratio] 23.35 kg/m2 Brenda Cortes MD Work Phone: [facility] 08-08-2024 15:27-0500 Body temperature 96.8 [degF] Brenda Cortes MD Work Phone: [facility] 08-08-2024 15:27-0500 Body weight 59.1 kg Brenda Cortes MD Work Phone: [facility] 08-08-2024 15:27-0500 Diastolic blood pressure 69 mm[Hg] Brenda Cortes MD Work Phone: [facility] 08-08-2024 15:27-0500 Heart rate 100 /min Brenda Cortes MD Work Phone: [facility] 08-08-2024 15:27-0500 Respiratory rate 16 /min Brenda Cortes MD Work Phone: [facility] 08-08-2024 15:27-0500 SaO2% (BldA) [Mass fraction] 100 % Brenda Cortes MD Work Phone: [facility] 08-08-2024 15:27-0500 Systolic blood pressure 110 mm[Hg] Brenda Cortes MD Work Phone: [facility] 07-29-2024 11:48-0500 Body height 159.1 cm Josie Carpenter MD Work Phone: [facility] 07-29-2024 11:48-0500 Body mass index (BMI) [Ratio] 22.6 kg/m2 Josie Carpenter MD Work Phone: [facility] 07-29-2024 11:48-0500 Body temperature 97.2 [degF] Josie Carpenter MD Work Phone: [facility] 07-29-2024 11:48-0500 Body weight 57.2 kg Josie Carpenter MD Work Phone: [facility] 07-29-2024 11:48-0500 Diastolic blood pressure 57 mm[Hg] Josie Carpenter MD Work Phone: [facility] 07-29-2024 11:48-0500 Heart rate 97 /min Josie Carpenter MD Work Phone: [facility] 07-29-2024 11:48-0500 Respiratory rate 18 /min Josie Carpenter MD Work Phone: [facility] 07-29-2024 11:48-0500 SaO2% (BldA) [Mass fraction] 98 % Josie Carpenter MD Work Phone: [facility] 07-29-2024 11:48-0500 Systolic blood pressure 118 mm[Hg] Jsoie Carpenter MD Work Phone: [facility] 07-28-2024 15:48-0500 Body mass index (BMI) [Ratio] 22.4 kg/m2 Chava Edwards MD Work Phone: [facility] [facility] 07-28-2024 15:48-0500 Body temperature 98.1 [degF] Chava Edwards MD Work Phone: [facility] 07-28-2024 15:48-0500 Body weight 56.7 kg Chava Edwards MD Work Phone: [facility] 07-28-2024 15:48-0500 Diastolic blood pressure 59 mm[Hg] Chava Edwards MD Work Phone: [facility] 07-28-2024 15:48-0500 Heart rate 83 /min Chava Edwards MD Work Phone: [facility] 07-28-2024 15:48-0500 Respiratory rate 16 /min Chava Edwards MD Work Phone: [facility] 07-28-2024 15:48-0500 SaO2% (BldA) [Mass fraction] 100 % Chava Edwards MD Work Phone: [facility] 07-28-2024 15:48-0500 Systolic blood pressure 96 mm[Hg] Chava Edwards MD Work Phone: [facility] 07-25-2024 08:33-0500 Body mass index (BMI) [Ratio] 22.16 kg/m2 Dima Cage MD Work Phone: [facility] 07-25-2024 08:33-0500 Body temperature 97 [degF] Dima Cage MD Work Phone: [facility] 07-25-2024 08:33-0500 Body weight 56.1 kg Dima Cage MD Work Phone: [facility] 07-25-2024 08:33-0500 Diastolic blood pressure 65 mm[Hg] Dima Cage MD Work Phone: [facility] 07-25-2024 08:33-0500 Heart rate 89 /min Dima Cage MD Work Phone: [facility] 07-25-2024 08:33-0500 Respiratory rate 16 /min Dima Cage MD Work Phone: [facility] 07-25-2024 08:33-0500 SaO2% (BldA) [Mass fraction] 98 % Dima Cage MD Work Phone: [facility] 07-25-2024 08:33-0500 Systolic blood pressure 99 mm[Hg] Dima Cage MD Work Phone: [facility] 06-27-2024 08:41-0400 Body mass index (BMI) [Ratio] 23.15 kg/m2 Dima Cage MD Work Phone: [facility] 06-27-2024 08:41-0400 Body temperature 97.3 [degF] Dima Cage MD Work Phone: [facility] 06-27-2024 08:41-0400 Body weight 58.6 kg Dima Cage MD Work Phone: [facility] 06-27-2024 08:41-0400 Diastolic blood pressure 68 mm[Hg] Dima Cage MD Work Phone: [facility] 06-27-2024 08:41-0400 Heart rate 87 /min Dima Cage MD Work Phone: [facility] 06-27-2024 08:41-0400 Respiratory rate 16 /min Dima Cage MD Work Phone: [facility] 06-27-2024 08:41-0400 SaO2% (BldA) [Mass fraction] 98 % Dima Cage MD Work Phone: [facility] 06-27-2024 08:41-0400 Systolic blood pressure 112 mm[Hg] Dima Cage MD Work Phone: [facility] 05-16-2024 09:28-0400 Body mass index (BMI) [Ratio] 22.97 kg/m2 Dima Cage MD Work Phone: [facility] 05-16-2024 09:28-0400 Body temperature 96.1 [degF] Dima Cage MD Work Phone: [facility] 05-16-2024 09:28-0400 Body weight 58.15 kg Dima Cage MD Work Phone: [facility] 05-16-2024 09:28-0400 Diastolic blood pressure 65 mm[Hg] Dima Cage MD Work Phone: [facility] 05-16-2024 09:28-0400 Heart rate 80 /min Dima Cage MD Work Phone: [facility] 05-16-2024 09:28-0400 Respiratory rate 16 /min Dima Cage MD Work Phone: [facility] 05-16-2024 09:28-0400 SaO2% (BldA) [Mass fraction] 97 % Dima Cage MD Work Phone: [facility] 05-16-2024 09:28-0400 Systolic blood pressure 92 mm[Hg] Dima Cage MD Work Phone: [facility] 05-05-2024 11:23-0400 Body height 159.1 cm Brenda Cortes MD Work Phone: [facility] 05-05-2024 11:23-0400 Body mass index (BMI) [Ratio] 22.22 kg/m2 Brenda Cortes MD Work Phone: [facility] 05-05-2024 11:23-0400 Body weight 56.25 kg Brenda Cortes MD Work Phone: [facility] 05-05-2024 11:23-0400 Diastolic blood pressure 64 mm[Hg] Brenda Cortes MD Work Phone: [facility] 05-05-2024 11:23-0400 Heart rate 78 /min Brenda Cortes MD Work Phone: [facility] 05-05-2024 11:23-0400 Systolic blood pressure 95 mm[Hg] Brenda Cortes MD Work Phone: [facility] 04-01-2024 13:15-0400 Diastolic blood pressure 63 mm[Hg] [facility] 04-01-2024 13:15-0400 Heart rate 88 /min [facility] 04-01-2024 13:15-0400 Respiratory rate 16 /min [address] 04-01-2024 13:15-0400 SaO2% (BldA) [Mass fraction] 99 % [address] 04-01-2024 13:15-0400 Systolic blood pressure 105 mm[Hg] [address] 04-01-2024 11:25-0400 Body temperature 97.2 [degF] [address] 03-22-2024 09:23-0400 Body height 159.1 cm Dima Cage MD Work Phone: [facility] 03-22-2024 09:23-0400 Body mass index (BMI) [Ratio] 23.68 kg/m2 Dima Cage MD Work Phone: [facility] 03-22-2024 09:23-0400 Body temperature 96.3 [degF] Dima Cage MD Work Phone: [facility] 03-22-2024 09:23-0400 Body weight 59.95 kg Dima Cage MD Work Phone: [facility] 03-22-2024 09:23-0400 Diastolic blood pressure 81 mm[Hg] Dima Cage MD Work Phone: [facility] 03-22-2024 09:23-0400 Heart rate 92 /min Dima Cage MD Work Phone: [facility] 03-22-2024 09:23-0400 Respiratory rate 16 /min Dima Cage MD Work Phone: [facility] 03-22-2024 09:23-0400 SaO2% (BldA) [Mass fraction] 98 % Dima Cage MD Work Phone: [facility] 03-22-2024 09:23-0400 Systolic blood pressure 121 mm[Hg] Dima Cage MD Work Phone: [facility] 02-23-2024 08:44-0400 Body mass index (BMI) [Ratio] 25.15 kg/m2 Josie Carpenter MD Work Phone: [facility] 02-23-2024 08:44-0400 Body temperature 96.8 [degF] Josie Carpenter MD Work Phone: [facility] 02-23-2024 08:44-0400 Body weight 60.37 kg Josie Carpenter MD Work Phone: [facility] 02-23-2024 08:44-0400 Diastolic blood pressure 78 mm[Hg] Josie Carpenter MD Work Phone: [facility] 02-23-2024 08:44-0400 Heart rate 99 /min Josie Carpenter MD Work Phone: [facility] 02-23-2024 08:44-0400 Respiratory rate 18 /min oJsie Carpenter MD Work Phone: [facility] 02-23-2024 08:44-0400 SaO2% (BldA) [Mass fraction] 97 % Josie Carpenter MD Work Phone: [facility] 02-23-2024 08:44-0400 Systolic blood pressure 125 mm[Hg] Josie Carpenter MD Work Phone: [facility] 02-08-2024 08:20-0400 Body mass index (BMI) [Ratio] 25.45 kg/m2 Antonio Rader [employer] Work Phone: [facility] 02-08-2024 08:20-0400 Body temperature 97.9 [degF] Antonio Rader [employer]PRESENT[employer] Work Phone: [facility] 02-08-2024 08:20-0400 Body weight 61.1 kg Antonio Rader [employer] Work Phone: [facility] 02-08-2024 08:20-0400 Diastolic blood pressure 68 mm[Hg] Antonio Rader [employer]PRESENT[employer] Work Phone: [facility] 02-08-2024 08:20-0400 Heart rate 81 /min Antonio Rader [employer] REPRESENT[employer]IVE Work Phone: [facility] 02-08-2024 08:20-0400 Respiratory rate 18 /min Antonio Rader [employer]PRESENT[employer]IVE Work Phone: [facility] 02-08-2024 08:20-0400 SaO2% (BldA) [Mass fraction] 96 % Antonio Rader [employer] REPRESENT[employer]IVE Work Phone: [facility] 02-08-2024 08:20-0400 Systolic blood pressure 132 mm[Hg] Antonio Rader [employer]PRESENT[employer]IVE Work Phone: [facility] 01-22-2024 10:46-0400 Body mass index (BMI) [Ratio] 25.41 kg/m2 Chava Edwards MD Work Phone: [facility] 01-22-2024 10:46-0400 Body temperature 95.9 [degF] Chava Edwards MD Work Phone: [facility] 01-22-2024 10:46-0400 Body weight 61 kg Chava Edwards MD Work Phone: [facility] 01-22-2024 10:46-0400 Diastolic blood pressure 81 mm[Hg] Chava Edwards MD Work Phone: [facility] 01-22-2024 10:46-0400 Heart rate 89 /min Chava Edwards MD Work Phone: [facility] 01-22-2024 10:46-0400 Respiratory rate 16 /min Chava Edwards MD Work Phone: [facility] 01-22-2024 10:46-0400 SaO2% (BldA) [Mass fraction] 98 % Chava Edwards MD Work Phone: [facility] 01-22-2024 10:46-0400 Systolic blood pressure 129 mm[Hg] Chava Edwards MD Work Phone: [facility] 01-14-2024 17:17-0400 Body height 160.02 cm [facility] 01-14-2024 17:17-0400 Body mass index (BMI) [Ratio] 23.9 kg/m2 [facility] 01-14-2024 17:17-0400 Body temperature 97.5 [degF] [facility] 01-14-2024 17:17-0400 Body weight 61.23 kg [facility] 01-14-2024 17:17-0400 Diastolic blood pressure 70 mm[Hg] [facility] 01-14-2024 17:17-0400 Heart rate 88 /min [facility] 01-14-2024 17:17-0400 Respiratory rate 18 /min [facility] 01-14-2024 17:17-0400 SaO2% (BldA) [Mass fraction] 99 % [facility] 01-14-2024 17:17-0400 Systolic blood pressure 120 mm[Hg] [facility] 01-08-2024 10:05-0400 Body height 154.9 cm [facility] 01-08-2024 10:05-0400 Body mass index (BMI) [Ratio] 25.7 kg/m2 [facility] 01-08-2024 10:05-0400 Body weight 61.69 kg [facility] 12-25-2023 13:18-0400 Body height 156.4 cm Chava Edwards MD Work Phone: [facility] 12-25-2023 13:18-0400 Body mass index (BMI) [Ratio] 25.31 kg/m2 Chava Edwards MD Work Phone: [facility] 12-25-2023 13:18-0400 Body temperature 96.3 [degF] Chava Edwards MD Work Phone: [facility] 12-25-2023 13:18-0400 Body weight 61.9 kg Chava Edwards MD Work Phone: [facility] 12-25-2023 13:18-0400 Diastolic blood pressure 76 mm[Hg] Chava Edwards MD Work Phone: [facility] 12-25-2023 13:18-0400 Heart rate 78 /min Chava Edwards MD Work Phone: [facility] 12-25-2023 13:18-0400 Respiratory rate 16 /min Chava Edwards MD Work Phone: [facility] 12-25-2023 13:18-0400 SaO2% (BldA) [Mass fraction] 97 % Chava Edwards MD Work Phone: [facility] 12-25-2023 13:18-0400 Systolic blood pressure 124 mm[Hg] Chava Edwards MD Work Phone: [facility] 12-07-2023 20:03-0400 Body mass index (BMI) [Ratio] 24.4 kg/m2 [facility] 12-07-2023 20:03-0400 Body temperature 97.2 [degF] [facility] 12-07-2023 20:03-0400 Body weight 62.59 kg [facility] 12-07-2023 20:03-0400 Diastolic blood pressure 70 mm[Hg] [facility] 12-07-2023 20:03-0400 Heart rate 84 /min [facility] 12-07-2023 20:03-0400 Respiratory rate 18 /min [facility] 12-07-2023 20:03-0400 SaO2% (BldA) [Mass fraction] 97 % [facility] 12-07-2023 20:03-0400 Systolic blood pressure 122 mm[Hg] [facility] 09-30-2023 18:05-0500 Body mass index (BMI) [Ratio] 24.6 kg/m2 [facility] 09-30-2023 18:05-0500 Body temperature 96.8 [degF] [facility] 09-30-2023 18:05-0500 Body weight 63.04 kg [facility] 09-30-2023 18:05-0500 Diastolic blood pressure 60 mm[Hg] [facility] 09-30-2023 18:05-0500 Heart rate 89 /min [facility] 09-30-2023 18:05-0500 Respiratory rate 18 /min [facility] 09-30-2023 18:05-0500 SaO2% (BldA) [Mass fraction] 95 % [facility] 09-30-2023 18:05-0500 Systolic blood pressure 119 mm[Hg] [facility] 04-13-2023 14:50-0400 Body height 160.02 cm [facility] 04-13-2023 14:50-0400 Body mass index (BMI) [Ratio] 25 kg/m2 [facility] 04-13-2023 14:50-0400 Body temperature 97.5 [degF] [facility] 04-13-2023 14:50-0400 Body weight 63.95 kg [facility] 04-13-2023 14:50-0400 Diastolic blood pressure 60 mm[Hg] [facility] 04-13-2023 14:50-0400 Heart rate 115 /min [facility] 04-13-2023 14:50-0400 Respiratory rate 18 /min [facility] 04-13-2023 14:50-0400 SaO2% (BldA) [Mass fraction] 96 % [facility] 04-13-2023 14:50-0400 Systolic blood pressure 115 mm[Hg] [facility] 08-25-2022 19:21-0500 Body height 160.02 cm [facility] Work Phone: 08-25-2022 19:21-0500 Body mass index (BMI) [Ratio] 24.7 kg/m2 [facility] Work Phone: 08-25-2022 19:21-0500 Body temperature 96.8 [degF] [facility] Work Phone: 08-25-2022 19:21-0500 Body weight 63.5 kg [facility] Work Phone: 08-25-2022 19:21-0500 Diastolic blood pressure 70 mm[Hg] [facility] Work Phone: 08-25-2022 19:21-0500 Heart rate 74 /min [facility] Work Phone: 08-25-2022 19:21-0500 Respiratory rate 18 /min [facility] Work Phone: 08-25-2022 19:21-0500 SaO2% (BldA) [Mass fraction] 98 % [facility] Work Phone: 08-25-2022 19:21-0500 Systolic blood pressure 115 mm[Hg] [facility] Work Phone: NEGATED: Highlighted [id number] 13:57-0400 Body height 157.48 cm [facility] Work Phone: NEGATED: Highlighted [id number] 13:57-0400 Body height 157 cm [facility] Work Phone: NEGATED: Highlighted [id number] 13:57-0400 Body mass index (BMI) [Ratio] 26.43 kg/m2 [facility] Work Phone: NEGATED: Highlighted [id number] 13:57-0400 Body weight 65.[address] [facility] Work Phone: NEGATED: Highlighted [id number] 13:57-0400 [facility] Work Phone: NEGATED: Highlighted [id number] 08:56-0500 BMI (Body Mass Index) 27.72 kg/m2 [facility] Work Phone: NEGATED: Highlighted [id number] 08:56-0500 Body weight 68.49 kg [facility] Work Phone: NEGATED: Highlighted [id number] 08:56-0500 Body weight 69 kg [facility] Work Phone: NEGATED: Highlighted [id number] 08:56-0500 BP Diastolic 83 mm[Hg] [facility] Work Phone: NEGATED: Highlighted [id number] 08:56-0500 BP Systolic 120 mm[Hg] [facility] Work Phone: NEGATED: Highlighted [id number] 08:56-0500 Height 157.48 cm [facility] Work Phone: NEGATED: Highlighted [id number] 08:56-0500 Height 157 cm [facility] Work Phone: NEGATED: Highlighted [id number] 08:56-0500 Pulse (Heart Rate) 86 /min Jacquiraudel Mg [facility] Work Phone: Encounters Encounter Date Encounter Type Care Provider Facility Start: 07-31-2025 End: 07-31-2025 Office outpatient visit 40 minutes Dima Cage MD Work Phone: [facility] Comment on above: 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, estrogen receptor negative Start: 07-31-2025 ambulatory CHANDLER CALZADA [facility] Start: 06-28-2025 End: 06-28-2025 ambulatory Chandler Calzada [facility] Facility:[facility] Start: 06-19-2025 End: 06-19-2025 ambulatory CHANDLER Nyla [facility] Start: 05-29-2025 End: 05-29-2025 ambulatory CHANDLER L [facility] Start: 05-15-2025 End: 05-15-2025 Office outpatient visit 25 minutes Brenda Cortes MD Work Phone: [facility] Comment on above: Encounter for monito ring cardiotoxic drug therapy; Malignant neoplasm of upper-inner quadrant of left breast in female, estrogen receptor negative; Essential hypertension, benign; SOB (shortness of breath) Start: 05-15-2025 End: 05-15-2025 ambulatory [facility] Start: 05-10-2025 End: 05-10-2025 Subsequent hospital visit by physician Doe Nathan [facility] Comment on above: 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, estrogen receptor negative Start: 04-20-2025 End: 04-20-2025 ambulatory CHANDLER Nyla [facility] Start: 03-27-2025 End: 03-27-2025 ambulatory CHANDLER Redmond [facility] Start: 03-06-2025 End: 03-06-2025 ambulatory CHANDLER Redmond [facility] Start: 02-20-2025 End: 02-20-2025 Subsequent hospital visit by physician Tio Barraza [facility] Comment on above: Personal history of malignant neoplasm of breast Start: 02-20-2025 End: 02-20-2025 ambulatory CHANDLER Redmond [facility] Start: 02-14-2025 End: 02-14-2025 ambulatory CHANDLER Redmond [facility] Start: 02-10-2025 End: 02-10-2025 ambulatory CHANDLER Redmond [facility] Start: 01-30-2025 End: 01-30-2025 Office outpatient visit 25 minutes Brenda Cortes MD Work Phone: [facility] Comment on above: 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, estrogen receptor negative (Primary Dx); Encounter for monitoring cardiotoxic drug therapy; Mitral valve prolapse; Essential hypertension, benign; Primary hypertension; CLL (chronic lymphocytic leukemia) (Multi); Shortness of breath Start: 01-30-2025 End: 01-30-2025 ambulatory [facility] Start: 01-30-2025 End: 01-30-2025 Subsequent hospital visit by physician Doe Nathan [facility] Comment on above: Encounter for monito ring cardiotoxic drug therapy; Malignant neoplasm of upper-inner quadrant of left breast in female, estrogen receptor negative Start: 01-30-2025 End: 01-30-2025 ambulatory [facility] Start: 01-26-2025 End: 01-26-2025 Office outpatient visit 25 minutes Chava Edwards MD Work Phone: [facility] Comment on above: CLL (chronic lymphoc ytic leukemia) (Multi) Start: 01-26-2025 End: 01-26-2025 ambulatory [facility] Start: 01-23-2025 End: 01-23-2025 ambulatory CHANDLER CALZADA [facility] Start: 01-06-2025 End: 01-06-2025 ambulatory Chandler Calzada [facility] Facility:[facility] Start: 01-02-2025 End: 01-02-2025 ambulatory CHANDLER Redmond CALZADA [facility] Start: 12-13-2024 End: 12-13-2024 Subsequent hospital visit by physician Derick Georges MD Work Phone: 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, estrogen receptor negative Start: 12-13-2024 End: 12-13-2024 ambulatory DERICK GEORGES [facility] Start: 12-12-2024 End: 12-12-2024 [facility] Start: 11-28-2024 End: 11-28-2024 ambulatory Chandler Calzada [facility] Work Phone: [facility] Work Phone: Start: 11-28-2024 End: 11-28-2024 Patient encounter procedure Chandlerconchita FishmanCalzada [facility] -Laboratory, Specimen Work Phone: Start: 11-28-2024 End: 11-28-2024 ambulatory Chandlerconchita FishmanCalzada [facility] Facility:[facility] Start: 11-21-2024 End: 11-21-2024 Office outpatient visit 40 minutes Dima Cage MD Work Phone: [facility] Comment on above: 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, estrogen receptor negative (Primary Dx); Encounter for follow-up examination after completed treatment for conditions other than malignant neoplasm Start: 11-21-2024 End: 11-21-2024 ambulatory CHANDLER Redmond [facility] Start: 11-18-2024 End: 11-18-2024 ambulatory CHANDLER Redmond [facility] Start: 11-18-2024 End: 11-18-2024 Subsequent hospital visit by physician Karlene Tejeda [facility] Comment on above: Encounter for antine oplastic radiation therapy; Malignant neoplasm of central portion of left female breast Start: 11-17-2024 End: 11-17-2024 ambulatory 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 Start: 11-16-2024 End: 11-16-2024 Subsequent hospital visit by physician Karlene Tejeda [facility] Comment on above: Encounter for antine oplastic radiation therapy; Malignant neoplasm of central portion of left female breast Start: 11-16-2024 End: 11-16-2024 ambulatory [facility] Start: 11-14-2024 End: 11-14-2024 Subsequent hospital visit by physician Karlene Tejeda [facility] Comment on above: Encounter for antine oplastic radiation therapy; Malignant neoplasm of central portion of left female breast Start: 11-14-2024 End: 11-14-2024 [facility] Start: 11-11-2024 End: 11-11-2024 Subsequent hospital visit by physician Karlene Tejeda [facility] Comment on above: Encounter for antine oplastic radiation therapy; Malignant neoplasm of central portion of left female breast Start: 11-11-2024 End: 11-11-2024 ambulatory [facility] Start: 11-10-2024 End: 11-10-2024 Subsequent hospital visit by physician Amrik Camacho [facility] Comment on above: Arrived Encounter for antine oplastic radiation therapy; Malignant neoplasm of central portion of left female breast Start: 11-10-2024 End: 11-10-2024 [facility] Start: 11-09-2024 End: 11-09-2024 Subsequent hospital visit by physician Karlene Tejeda [facility] Comment on above: Encounter for antine oplastic radiation therapy; Malignant neoplasm of central portion of left female breast Start: 11-09-2024 End: 11-09-2024 ambulatory [facility] Start: 11-08-2024 End: 11-08-2024 Subsequent hospital visit by physician Karlene Tejeda [facility] Comment on above: Encounter for antine oplastic radiation therapy; Malignant neoplasm of central portion of left female breast Start: 11-08-2024 End: 11-08-2024 ambulatory [facility] Start: 11-07-2024 End: 11-07-2024 Subsequent hospital visit by physician Karlene Tejeda [facility] Comment on above: Encounter for antine oplastic radiation therapy; Malignant neoplasm of central portion of left female breast Start: 11-07-2024 End: 11-07-2024 ambulatory [facility] Start: 11-04-2024 End: 11-04-2024 Subsequent hospital visit by physician Karlene Tejeda [facility] Comment on above: Encounter for antine oplastic radiation therapy; Malignant neoplasm of central portion of left female breast Start: 11-04-2024 End: 11-04-2024 [facility] Start: 11-03-2024 End: 11-03-2024 Subsequent hospital visit by physician Amrik Camacho [facility] [facility] [place] Comment on above: Arrived Encounter for antine oplastic radiation therapy; Malignant neoplasm of central portion of left female breast Start: 11-03-2024 End: 11-03-2024 ambulatory [facility] Start: 11-02-2024 End: 11-02-2024 Subsequent hospital visit by physician Karlene Tejeda [facility] [place] Comment on above: Encounter for antine oplastic radiation therapy; Malignant neoplasm of central portion of left female breast Start: 11-02-2024 End: 11-02-2024 [facility] Start: 11-01-2024 End: 11-01-2024 Subsequent hospital visit by physician Karlene Tejeda [facility] [place] Comment on above: Encounter for antine oplastic radiation therapy; Malignant neoplasm of central portion of left female breast Start: 11-01-2024 End: 11-01-2024 ambulatory [facility] Start: 10-31-2024 End: 10-31-2024 ambulatory [facility] Start: 10-31-2024 End: 10-31-2024 ambulatory [facility] Start: 10-31-2024 End: 10-31-2024 Subsequent hospital visit by physician Karlene Tejeda [facility] [place] Comment on above: Encounter for antine oplastic radiation therapy; Malignant neoplasm of central portion of left female breast Start: 10-28-2024 End: 10-28-2024 Subsequent hospital visit by physician Karlene Tejeda [facility] [place] Comment on above: Malignant neoplasm o f central portion of left female breast Start: 10-28-2024 End: 10-28-2024 ambulatory [facility] Start: 10-27-2024 End: 10-27-2024 Subsequent hospital visit by physician Amrik Camacho [facility] [place] Comment on above: Arrived Malignant neoplasm o f central portion of left female breast Start: 10-27-2024 End: 10-27-2024 ambulatory [facility] Start: 10-20-2024 End: 10-20-2024 ambulatory [facility] Start: 10-20-2024 End: 10-20-2024 Subsequent hospital visit by physician Harlan Guzman [facility] [place] Comment on above: Arrived Start: 10-18-2024 End: 10-18-2024 ambulatory [facility] Start: 10-17-2024 End: 10-17-2024 ambulatory [facility] Start: 10-14-2024 End: 10-14-2024 ambulatory [facility] Start: 10-10-2024 End: 10-10-2024 Subsequent hospital visit by physician Doe [facility] Comment on above: 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, estrogen receptor negative Start: 10-10-2024 End: 10-10-2024 ambulatory RICKEY CAMACHO [facility] Start: 10-07-2024 End: 10-07-2024 Office outpatient new 60 minutes Rickey Camacho MD Work Phone: [facility] 3 Comment on above: 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, estrogen receptor negative (Primary Dx) Start: 10-07-2024 End: 10-07-2024 ambulatory CHANDLER Redmond CALZADA [facility] Start: 10-03-2024 End: 10-03-2024 Office outpatient visit 40 minutes Dima Cage MD Work Phone: [facility] Comment on above: 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, estrogen receptor negative (Primary Dx); Encounter for follow-up examination after completed treatment for conditions other than malignant neoplasm Start: 10-03-2024 End: 10-03-2024 ambulatory CHANDLER CALZADA [facility] Start: 09-28-2024 End: 09-28-2024 Patient encounter procedure Chandler Calzada [facility] -Laboratory, Specimen Work Phone: Start: 09-28-2024 End: 09-28-2024 ambulatory Chandler Calzada [facility] Facility:[facility] Start: 09-26-2024 End: 09-26-2024 Postop follow up visit related to original px Josie Carpenter MD Work Phone: [facility] Comment on above: Personal history of malignant neoplasm of breast; Malignant neoplasm of upper-inner quadrant of left breast in female, estrogen receptor negative Start: 09-26-2024 End: 09-26-2024 ambulatory CHANDLER Redmond CALZADA [facility] Start: 09-12-2024 End: 09-12-2024 Office outpatient visit 25 minutes Brenda Cortes MD Work Phone: [facility] Comment on above: 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, estrogen receptor negative Other abnormal and i nconclusive findings on diagnostic imaging of breast Start: 08-22-2024 End: 08-22-2024 [facility] Start: 08-15-2024 End: 08-15-2024 Subsequent hospital visit by physician Tio [id number] Ultrasound [facility] Comment on above: Edema of right lower leg Start: 08-15-2024 End: 08-15-2024 ambulatory CHANDLER Redmond [facility] Start: 08-12-2024 End: 08-12-2024 ambulatory CHANDLER L CALZADA [facility] Start: 08-12-2024 End: 08-12-2024 Encounter for other preprocedural examination CHANDLER CALZADA [facility] Start: 08-12-2024 End: 08-12-2024 ambulatory AGUSTINA Conchita [facility] Start: 08-12-2024 End: 08-12-2024 Encounter for other preprocedural examination [facility] Start: 08-11-2024 End: 08-11-2024 ambulatory JOSIE CARPENTER [facility] Start: 08-08-2024 End: 08-08-2024 Office outpatient visit 40 minutes Brenda Cortes MD Work Phone: [facility] Comment on above: Edema of right lower leg (Primary Dx); Hypokalemia; Hypomagnesemia; Shortness of breath; Encounter for monitoring cardiotoxic drug therapy; Malignant neoplasm of upper-inner quadrant of left breast in female, estrogen receptor negative Start: 08-08-2024 End: 08-08-2024 ambulatory JOSIE CARPENTER [facility] Start: 08-05-2024 End: 08-05-2024 Subsequent hospital visit by physician Doe Nathan [facility] Comment on above: 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, estrogen receptor negative; Encounter for monitoring cardiotoxic drug therapy Start: 08-05-2024 End: 08-05-2024 [facility] Start: 07-29-2024 End: 07-29-2024 Office outpatient visit 40 minutes Josie Carpenter MD Work Phone: [facility] Comment on above: 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, estrogen receptor negative (Primary Dx) Start: 07-29-2024 End: 07-29-2024 Subsequent hospital visit by physician Tio Gifford [facility] Comment on above: 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, estrogen receptor negative Start: 07-28-2024 End: 07-28-2024 Office outpatient visit 25 minutes Chava Edwards MD Work Phone: [facility] Comment on above: CLL (chronic lymphoc ytic leukemia) (Multi) Start: 07-26-2024 End: 07-26-2024 Emergency department patient visit CHANDLER CALZADA Facility:[id number] Start: 07-25-2024 End: 07-25-2024 Office outpatient visit 40 minutes Dima Cage MD Work Phone: [facility] Comment on above: 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, estrogen receptor negative Start: 06-28-2024 End: 06-28-2024 Subsequent hospital visit by physician Tio Garcia [facility] Comment on above: 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, estrogen receptor negative Start: 06-27-2024 End: 06-27-2024 Office outpatient visit 40 minutes Dima Cage MD Work Phone: [facility] Comment on above: 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, estrogen receptor negative (Primary Dx) Start: 06-08-2024 End: 06-09-2024 Emergency department patient visit ELIANA VALENCIA Facility:[facility] Start: 06-02-2024 End: 06-02-2024 Office outpatient visit 25 minutes Dima Cage MD Work Phone: [facility] Comment on above: 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, estrogen receptor negative (Multi) Start: 05-24-2024 End: 05-25-2024 ambulatory ABHI CORBIN Facility:[facility] Start: 05-16-2024 End: 05-16-2024 Office outpatient visit 40 minutes Dima Cage MD Work Phone: [facility] Comment on above: 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, estrogen receptor negative (Multi) (Primary Dx) Start: 05-05-2024 End: 05-05-2024 Office consultation new/estab patient 80 min Brenda A Rusterholtz MD Work Phone: [facility] Comment on above: CLL (chronic lymphoc ytic leukemia) (Multi) (Primary Dx); Malignant neoplasm of upper-inner quadrant of left breast in female, estrogen receptor negative (Multi); Encounter for monitoring cardiotoxic drug therapy; Essential hypertension, benign; Mixed hyperlipidemia; Mitral valve prolapse; Shortness of breath Start: 04-01-2024 End: 04-01-2024 Subsequent hospital visit by physician Tio Ir 1 [facility] Comment on above: 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, estrogen receptor negative (Multi) Start: 03-28-2024 End: 03-28-2024 Subsequent hospital visit by physician Tio Casas110 Nm Admin Room 1 [facility] Comment on above: 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, estrogen receptor negative (Multi) Arrived Start: 03-23-2024 End: 03-23-2024 Subsequent hospital visit by physician Kyler Echo/Stress [facility] Comment on above: 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, estrogen receptor negative (Multi); Encounter for antineoplastic chemotherapy Start: 03-22-2024 End: 03-22-2024 Office outpatient new 60 minutes Dima Cage MD Work Phone: [facility] Comment on above: 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, estrogen receptor negative (Multi) (Primary Dx); Encounter for antineoplastic chemotherapy; Other specified disorders of breast Start: 02-23-2024 End: 02-23-2024 Office outpatient new 60 minutes Josie Carpenter MD Work Phone: [facility] Comment on above: 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, estrogen receptor negative (Multi) (Primary Dx) Start: 02-08-2024 End: 02-08-2024 Evaluation and management of inpatient [facility] [place]ound [facility] Comment on above: Abnormal finding on breast imaging Start: 02-08-2024 End: 02-08-2024 Office outpatient new 45 minutes Antonio RUBIN Work Phone: [facility] Comment on above: Abnormal finding on breast imaging (Primary Dx); Mass of left breast, unspecified quadrant; Axillary lymphadenopathy Start: 02-08-2024 End: 02-08-2024 Subsequent hospital visit by physician Tio Mammo 4 [facility] Comment on above: Other abnormal and i nconclusive findings on diagnostic imaging of breast Start: 02-08-2024 End: 02-08-2024 Evaluation and management of inpatient [facility] [place] Comment on above: Other abnormal and i nconclusive findings on diagnostic imaging of breast Mass of left breast, unspecified quadrant (Primary Dx); Abnormal finding on breast imaging Start: 01-22-2024 End: 01-22-2024 Office outpatient visit 40 minutes Chava Edwards MD Work Phone: [facility] Comment on above: CLL (chronic lymphoc ytic leukemia) (Multi); Abnormal mammogram Start: 01-20-2024 End: 01-20-2024 Subsequent hospital visit by physician Doe Opctr Ultrasound [facility] Comment on above: CLL (chronic lymphoc ytic leukemia) (Multi); Other abnormal and inconclusive findings on diagnostic imaging of breast Other abnormal and i nconclusive findings on diagnostic imaging of breast Start: 01-14-2024 End: 01-14-2024 ambulatory [facility] Work Phone: Start: 01-14-2024 End: 01-14-2024 Patient encounter procedure [facility]-Laboratory, Specimen Work Phone: Start: 01-12-2024 End: 01-12-2024 Subsequent hospital visit by physician Rad External Film EF [facility]TER[facility] Comment on above: Arrived Start: 01-08-2024 End: 01-08-2024 Subsequent hospital visit by physician Tio [id number] 1 [facility] Comment on above: CLL (chronic lymphoc ytic leukemia) (Multi) Start: 12-25-2023 End: 12-25-2023 Office outpatient visit 40 minutes Chava dEwards MD Work Phone: [facility] Comment on above: CLL (chronic lymphoc ytic leukemia) (CMS/HCC) (Primary Dx) Start: 04-13-2023 End: 04-13-2023 ambulatory [facility] Work Phone: Start: 04-13-2023 End: 04-13-2023 Patient encounter procedure [facility]-Laboratory, Specimen Work Phone: Start: 08-25-2022 End: 08-25-2022 ambulatory [facility] Work Phone: Start: 08-25-2022 End: 08-25-2022 Patient encounter procedure [facility]-Laboratory, Specimen Start: 11-07-2019 End: 11-07-2019 Patient encounter procedure Levy Everett MD Work Phone: [facility] Work Phone: Procedures Date Procedure Procedure Detail Performing Clinician Start: 05-15-2025 Ecg routine ecg w/le ast 12 lds w/i&r Brenda Cortes MD Work Phone: Start: 05-10-2025 Echo transthorc r-t 2d w/wo m-mode rec f-up/lmtd Brenda Cortes MD Work Phone: Start: 02-20-2025 End: 02-20-2025 Diagnostic mammography computer-aided detcj uni Josie Carpenter MD Work Phone: Start: 01-30-2025 ONCO-ECHO LIMITED (S TRAIN AND 3D) Brenda Cortes MD Work Phone: Start: 12-13-2024 PULSE OXIMETRY, SPOT Eren Aguirre APRN-OUTSIDE INDUSTRIAL SALES REPRESENTATIVE, DNP Work Phone: Start: 12-13-2024 Basic metabolic pane l calcium total John Aguirre APRN-OUTSIDE INDUSTRIAL SALES REPRESENTATIVE, DNP Work Phone: Start: 11-28-2024 Gram stain microscopy D zamzam Calzada [facility] Work Phone: Start: 11-28-2024 Microbial culture, routine Chandler Calzada [facility] Work Phone: Start: 11-18-2024 RAD ONC MSQ TREATMEN T SUMMARY Gabriel Izaguirre MD Work Phone: Start: 11-17-2024 RAD ONC MSQ TREATMEN T SUMMARY Gabriel Izaguirre MD Work Phone: Start: 11-16-2024 RAD ONC MSQ TREATMEN T SUMMARY Gabriel Izaguirre MD Work Phone: Start: 11-14-2024 RAD ONC MSQ TREATMEN T SUMMARY Gabriel Izaguirre MD Work Phone: Start: 11-11-2024 RAD ONC MSQ TREATMEN T SUMMARY Gabriel Izaguirre MD Work Phone: Start: 11-10-2024 RAD ONC MSQ TREATMEN T SUMMARY Gabriel Izaguirre MD Work Phone: Start: 11-09-2024 RAD ONC MSQ TREATMEN T SUMMARY Gabriel Izaguirre MD Work Phone: Start: 11-08-2024 RAD ONC MSQ TREATMEN T SUMMARY Gabriel Izaguirre MD Work Phone: Start: 11-07-2024 RAD ONC MSQ TREATMEN T SUMMARY Gabriel Izaguirre MD Work Phone: Start: 11-04-2024 RAD ONC MSQ TREATMEN T SUMMARY Gabriel Izaguirre MD Work Phone: Start: 11-03-2024 RAD ONC MSQ TREATMEN T SUMMARY Gabriel Izaguirre MD Work Phone: Start: 11-02-2024 RAD ONC MSQ TREATMEN T SUMMARY Gabriel Izaguirre MD Work Phone: Start: 11-01-2024 RAD ONC MSQ TREATMEN T SUMMARY Gabriel Izaguirre MD Work Phone: Start: 10-31-2024 RAD ONC MSQ TREATMEN T SUMMARY Gabriel Izaguirre MD Work Phone: Start: 10-28-2024 RAD ONC MSQ TREATMEN T SUMMARY Gabriel Izaguirre MD Work Phone: Start: 10-27-2024 RAD ONC MSQ TREATMEN T SUMMARY Gabriel Izaguirre MD Work Phone: Start: 10-10-[address] SIMULATIO N WITH SCHEDULING Rickey Camacho MD Work Phone: Start: 09-28-2024 Urine culture Chandler Sotomayor marcelo [facility] Work Phone: Start: 08-24-2024 Glucose quantitative blood xcpt reagent strip Josie Carpenter MD Work Phone: Start: 08-24-2024 PULSE OXIMETRY, CONTINUOUS Pablo Hernández DO Work Phone: Start: 08-24-2024 End: 08-24-2024 Radiological examination surgical specimen Josie Carpenter MD Work Phone: Start: 08-24-2024 Inj radioactive trac er for id of sentinel node Josie Carpenter MD Work Phone: Start: 08-24-2024 Glucose quantitative blood xcpt reagent strip Josie Carpenter MD Work Phone: Start: 08-24-2024 PULSE OXIMETRY, SPOT Pa katarina Carpenter MD Work Phone: Start: 08-22-2024 MG Breast - unilater al Single view for clip placement Josie Carpenter MD Work Phone: Start: 08-22-2024 Perq breast loc jihan ce placemt each les us image Josie Carpenter MD Work Phone: Start: 07-29-2024 Ultrasound elastogra phy first target lesion Josie aCrpenter MD Work Phone: Start: 07-29-2024 End: 07-29-2024 Mammography Josie Carpenter MD Work Phone: Start: 06-28-2024 Us soft tissue head & neck real time imge sebas Cage MD Work Phone: Start: 05-05-2024 Ecg routine ecg w/le ast 12 lds w/i&r Brenda Cortes MD Work Phone: Start: 04-01-2024 Comprehensive metabo lic panel Dima Cage MD Work Phone: Start: 04-01-2024 Hepatitis b surf ant ibody hbsab Dima Cage MD Work Phone: Start: 04-01-2024 Iaad ia hepatitis b surface antigen Dima Cage MD Work Phone: Start: 04-01-2024 Guidance for placeme nt of CV catheter with port in Chest Dima Cage MD Work Phone: Start: 03-28-2024 Bone &/joint imaging whole body Dima Cage MD Work Phone: Start: 03-23-2024 Echo tthrc r-t 2d w/wom-mode compl spec&colr d Dima Cage MD Work Phone: Start: 02-08-2024 Diagnostic mammograp hy computer-aided detcj uni Chava Edwards MD Work Phone: Start: 02-08-2024 Ultrasound elastogra phy first target lesion Antonio RUBIN Work Phone: Start: 02-08-2024 Bx/exc lymph node ne edle superficial Antonio RUBIN Work Phone: Start: 02-08-2024 Bx breast w/device a ddl lesion ultrasound guid Antonio RUBIN Work Phone: Start: 01-20-2024 Us breast uni real t luz with image limited Chava Edwards MD Work Phone: Start: 01-20-2024 End: 01-20-2024 Mammography Chava Edwards MD Work Phone: Start: 01-12-2024 End: 01-12-2024 Study Interpretation of outside study Chava Edwards MD Work Phone: Start: 01-08-2024 Mammography [facility] Start: 12-23-2021 End: 12-24-2021 BP scrn no perf at interval Soco A Jimmyyecenia PRESIDENT EDUCATIONAL INSTITUTION-OUTSIDE INDUSTRIAL SALES REPRESENTATIVE Work Phone: Start: 12-23-2021 End: 12-24-2021 Calc BMI abv up pricila f/u Socomegan paredes PRESIDENT [employer]UC[employer]UTION-OUTSIDE INDUSTRIAL SALES REPRESENTATIVE Work Phone: Start: 12-23-2021 End: 12-24-2021 Current tobacco non-user cad cap copd pv dm Soco A Watdonnay PRESIDENT [employer]-OUTSIDE INDUSTRIAL SALES REPRESENTATIVE Work Phone: Start: 12-23-2021 End: 12-24-2021 Docrev cur meds by tiffanie winchester Soco A Wattley PRESIDENT [employer]UCATIONAL [employer]UTION-OUTSIDE INDUSTRIAL SALES REPRESENTATIVE Work Phone: Start: 12-23-2021 End: 12-24-2021 Osteoarthritis symptoms&funcjal status asses Soco A Jimmytley PRESIDENT [employer]-OUTSIDE INDUSTRIAL SALES REPRESENTATIVE Work Phone: Start: 12-23-2021 End: 12-24-2021 Pain doc pos and plan Soco A Jimmydonnay PRESIDENT [employer]UCATIONAL [employer]UTION-OUTSIDE INDUSTRIAL SALES REPRESENTATIVE Work Phone: Start: 12-23-2021 End: 12-24-2021 Patient encounter procedure Soco Marqueztlegeorges PRESIDENT [employer]UCATIONAL IN[employer]UTION-OUTSIDE INDUSTRIAL SALES REPRESENTATIVE Work Phone: Start: 11-07-2019 End: 11-07-2019 Arthrocentesis aspir&/inj major jt/bursa w/o us Levy Everett MD Work Phone: Start: 11-07-2019 End: 11-07-2019 Blood pressure within normal parameters - no follow-up required Levy Everett MD Work Phone: Start: 11-07-2019 End: 11-07-2019 BMI documented as above normal parameters - follow-up documented Levy Everett MD Work Phone: Start: 11-07-2019 End: 11-07-2019 Documentation of current medications Levy Everett MD Work Phone: Start: 11-07-2019 End: 11-07-2019 Injection - betamethasone acetate 3 mg and betamethasone sodium phosphate 3 mg Levy Everett MD Work Phone: Start: 11-07-2019 End: 11-07-2019 Pain assessment documented as positive - follow-up documented Levy Everett MD Work Phone: Start: 11-07-2019 End: 11-07-2019 Tobacco non-user Levy Everett MD Work Phone: NEGATED: Highlighted rowStart: 12-23-2021 End: 12-23-2021 Documentation of current medications Jacqui Mg NEGATED: Highlighted rowStart: 11-07-2019 End: 11-07-2019 Documentation of current medications Jacqui Mg Plan of Treatment Date Care Activity Detail Author Start: 10-14-2026 Screening for osteoporosis Bone Density Scan [facility] Start: 02-20-2026 Screening for malignant neoplasm of breast Mammogram [facility] Start: 11-27-2025 End: 11-27-2025 Patient encounter procedure 11/27/2025 8:30 AM EDT Office Visit [facility] [address] [place] [address] [place] [address] [place] [address] [facility] Start: 10-20-2025 End: 10-20-2025 Patient encounter procedure 10/20/2025 2:00 PM EST Office Visit [facility] [address] [place] [phone] Chava Edwards MD [address] [facility] [place], [place] [id number] [facility] Start: 09-08-2025 End: 09-08-2025 Patient encounter procedure 09/08/2025 9:30 AM EST Office Visit [facility] [address] [place] [phone] [place] [address] [place] [address] [facility] Start: 08-31-2025 End: 08-31-2025 Patient encounter procedure 08/31/2025 2:00 PM EST Appointment [facility] [address] [place] [address] [facility] Start: 08-28-2025 End: 08-28-2025 Patient encounter procedure [facility] Start: 07-31-2025 End: 05-15-2027 Onco-Echo Limited (Strain And 3D) Onco-Echo Limited (Strain And 3D) Echocardiography Routine Encounter for monitoring cardiotoxic drug therapy Expected: 07/31/2025 (Approximate), Expires: 05/15/2027 [facility] Service Area Work Phone: Comment on above: Expected: 07/31/2025 (Approximate), Expi res: 05/15/2027 Start: 07-29-2025 Screening for malignant neoplasm of breast Mammogram [facility] Start: 07-28-2025 End: 07-28-2025 Patient encounter procedure [facility] Start: 07-24-2025 End: 07-24-2025 Patient encounter procedure 07/24/2025 1:10 PM EST Office Visit [facility] [address] [place] [phone] [place] [address] [place] [address] [facility] Start: 06-19-2025 End: 06-19-2025 ambulatory 06/19/2025 2:30 PM EDT Infusion [facility] [address] [facility] [address] [place] [phone] [facility] [facility] Start: 05-29-2025 End: 05-29-2025 ambulatory 05/29/2025 2:00 PM EDT Infusion [facility] [address] [facility] 5 [place] [phone] [facility] Start: 05-22-[address] [facility] Start: 05-15-2025 End: 05-15-2026 Natriuretic peptide B [Mass/volume] in Blood [facility] Work Phone: Comment on above: Expected: 05/15/2025 (Approximate), Expi res: 05/15/2026 Start: 05-15-2025 End: 05-15-2026 Troponin I.cardiac panel - Serum or Plasma by High sensitivity method [facility] Work Phone: Comment on above: Expected: 05/15/2025 (Approximate), Expi res: 05/15/2026 Start: 05-15-2025 End: 05-15-2025 Patient encounter procedure 05/15/2025 11:15 AM EDT Office Visit [facility] [address] [facility] [address] [place] [address] Brenda Cortes MD [address] [place] [address] Dr [address] [place] [address] [facility] Start: 05-08-2025 End: 05-08-2025 ambulatory 05/08/2025 2:00 PM EDT Infusion [facility] [address] [facility] 5 [place] [phone] [facility] Start: 05-08-2025 End: 05-08-2025 Patient encounter procedure 05/08/2025 8:00 AM EDT Appointment [facility] [address] [place] [phone] [facility] Start: 05-02-2025 End: 01-30-2027 Onco-Echo Limited (Strain And 3D) Onco-Echo Limited (Strain And 3D) Echocardiography Routine Malignant neoplasm of upper-inner quadrant of left breast in female, estrogen receptor negative Encounter for monitoring cardiotoxic drug therapy Expected: 05/02/2025 (Approximate), Expires: 01/30/2027 [facility] Service Area Work Phone: Comment on above: Expected: 05/02/2025 (Approximate), Expi res: 01/30/2027 Start: 04-21-2025 Influenza vaccination Influenza Vaccine (#1) [facility] Start: 04-20-2025 End: 04-20-2025 ambulatory 04/20/2025 10:00 AM EDT Infusion [facility] [address] [facility] [address] [place] [phone] Malignant neoplasm of upper-inner quadrant of left breast in female, estrogen receptor negative [facility] Comment on above: Malignant neoplasm of upper-inner quadra nt of left breast in female, estrogen receptor negative Start: 03-20-2025 End: 03-20-2025 Patient encounter procedure 03/20/2025 2:00 PM EDT Office Visit [facility] [address] [place] [address] Dr [address] [place] [address] Brenda Cortes MD [address] [place] [address] Dr [address] 3 [place] [address] [facility] Start: 03-06-2025 End: 03-06-2025 ambulatory 03/06/2025 11:30 AM EDT Infusion [facility] [address] [facility] [address] [place] [phone] [facility] Start: 03-06-2025 End: 03-06-2025 Patient encounter procedure 03/06/2025 11:10 AM EDT Office Visit [facility] [address] [place] [phone] [place] [address] [place] [address] [facility] Start: 02-20-2025 End: 02-20-2025 Patient encounter procedure [facility] Start: 02-14-2025 End: 02-14-2025 ambulatory 02/14/2025 11:30 AM EDT Infusion [facility] [address] [place] [address] [facility] Start: 02-10-2025 End: 02-10-2025 Patient encounter procedure 02/10/2025 11:00 AM EDT Appointment [place] [address] [place] [address] 3 [address] [place] [address] Rickey Camacho MD [address] [place] [address] [place] [address] Start: 02-06-2025 End: 02-06-2025 Patient encounter procedure 02/06/2025 1:15 PM EDT Office Visit [facility] [address] [facility] [address] [place] [address] Brenda Cortes [place] [address] [place] [address] Dr [address] 3 [place] [address] [facility] Start: 02-03-2025 End: 02-03-2025 Patient encounter procedure [facility] Start: 01-30-2025 End: 01-30-2026 Natriuretic peptide B [Mass/volume] in Blood B-Type Natriuretic Peptide Lab Routine Malignant neoplasm of upper-inner quadrant of left breast in female, estrogen receptor negative Encounter for monitoring cardiotoxic drug therapy Shortness of breath Expected: 01/30/2025 (Approximate), Expires: 01/30/2026 [facility] Work Phone: Comment on above: Expected: 01/30/2025 (Approximate), Expi res: 01/30/2026 Start: 01-30-2025 End: 01-30-2026 Troponin I.cardiac panel - Serum or Plasma by High sensitivity method Troponin I, High Sensitivity Lab Routine Malignant neoplasm of upper-inner quadrant of left breast in female, estrogen receptor negative Encounter for monitoring cardiotoxic drug therapy Expected: 01/30/2025 (Approximate), Expires: 01/30/2026 [facility] Work Phone: Comment on above: Expected: 01/30/2025 (Approximate), Expi res: 01/30/2026 Start: 01-30-2025 End: 01-30-2025 Patient encounter procedure [facility] Start: 01-26-2025 End: 01-26-2025 Patient encounter procedure 01/26/2025 2:20 PM EDT Office Visit [facility] [address] [facility] [address] [place] [phone] Chava Edwards MD [address] [facility] 5 [place] [address] [facility] Start: 01-23-2025 End: 01-23-2025 ambulatory 01/23/2025 2:30 PM EDT Infusion [facility] [address] [facility] [address] [place] [address] [facility] Start: 01-23-2025 End: 01-23-2026 CBC W Auto Differential panel - Blood CBC and Auto Differential Lab Routine Malignant neoplasm of upper-inner quadrant of left breast in female, estrogen receptor negative Expected: 01/23/2025, Expires: 01/23/2026 [facility] Work Phone: Comment on above: Expected: 01/23/2025, Expires: Start: 01-19-2025 Screening for malignant neoplasm of breast Mammogram [facility] Start: 01-16-2025 End: 01-16-2025 Patient encounter procedure 01/16/2025 8:00 AM EDT Appointment [facility] [address] [place] [phone] [facility] Start: 01-07-2025 Screening for malignant neoplasm of breast Mammogram [facility] Start: 01-02-2025 End: 01-02-2025 ambulatory 01/02/2025 11:30 AM EDT Infusion [facility] [address] [place] [address] [facility] Start: 11-21-2024 End: 11-21-2025 Guidance for removal of CV catheter with port from Chest IR CVC port removal Imaging Routine Malignant neoplasm of upper-inner quadrant of left breast in female, estrogen receptor negative Expected: 11/21/2024, Expires: 11/21/2025 [facility] Service Area Work Phone: Comment on above: Expected: 11/21/2024, Expires: Start: 11-21-2024 End: 11-21-2024 ambulatory [facility] Comment on above: Malignant neoplasm of upper-inner quadra nt of left breast in female, estrogen receptor negative Start: 11-21-2024 End: 11-21-2024 Patient encounter procedure [facility] Start: 11-18-2024 End: 11-18-2024 Patient encounter procedure [facility] 3 Start: 11-17-2024 End: 11-17-2024 Patient encounter procedure 11/17/2024 8:30 AM EST Appointment [facility] 3 [address] [facility] [address] [place] [address] [facility] Start: 11-16-2024 End: 11-16-2024 Patient encounter procedure [facility] [place] [facility] 3 Start: 11-15-2024 End: 11-15-2024 Patient encounter procedure 11/15/2024 8:30 AM EST Appointment [facility] [place] [facility] 3 [address] [place] [address] [facility] 3 Start: 11-14-2024 End: 11-14-2024 Patient encounter procedure 11/14/2024 8:30 AM EST Appointment Robert [place] [facility] 3 [address] [place] [address] [facility] [place] [facility] 3 Start: 11-11-2024 End: 11-11-2024 Patient encounter procedure 11/11/2024 8:30 AM EST Appointment [facility] 3 [address] [place] [address] [facility] 3 Start: 11-10-2024 End: 11-10-2024 Patient encounter procedure 11/10/2024 8:30 AM EST [facility] [address] [place] [address] [facility] 3 Start: 11-09-2024 End: 11-09-2024 Patient encounter procedure [facility] [employer] [facility] 3 Start: 11-08-2024 End: 11-08-2024 Patient encounter procedure 11/08/2024 8:30 AM EST Appointment Robert [facility] [employer] [facility] 3 [address] [place] [address] Robert [place] [employer] [facility] 3 Start: 11-07-2024 End: 11-07-2025 CBC W Auto Differential panel - Blood CBC and Auto Differential Lab Routine Malignant neoplasm of upper-inner quadrant of left breast in female, estrogen receptor negative Expected: 11/07/2024, Expires: 11/07/2025 [facility] Work Phone: Comment on above: Expected: 11/07/2024, Expires: Start: 11-07-2024 End: 11-07-2024 ambulatory 11/07/2024 1:00 PM EST Infusion [facility] [address] [place] [address] [facility] Start: 11-07-2024 End: 11-07-2024 Patient encounter procedure [facility] Start: 11-07-2024 End: 11-07-2024 Patient encounter procedure 11/07/2024 8:15 AM EST [facility] [place] [facility] [address] [place] [address] [facility] [employer] [facility] 3 Start: 11-04-2024 End: 11-04-2024 Patient encounter procedure 11/04/2024 8:30 AM EST Appointment Robert [place] [facility] 3 [address] [place] [address] oRbert [place] [facility] 3 Start: 11-03-2024 End: 11-03-2024 Patient encounter procedure 11/03/2024 8:30 AM EST Appointment [facility] [employer] [facility] 3 [address] [place] [address] Robert [place] [facility] 3 Start: 11-02-2024 End: 11-02-2024 Patient encounter procedure 11/02/2024 8:30 AM EST Appointment [facility] [employer] [facility] 3 [address] [place] [address] Robert [place] [facility] 3 Start: 11-01-2024 End: 11-01-2024 Patient encounter procedure 11/01/2024 8:30 AM EST Appointment [facility] [employer] [facility] 3 [address] [place] [address] [facility] [employer] [facility] 3 Start: 10-31-2024 End: 10-31-2024 ambulatory 10/31/2024 11:30 AM EST Infusion [facility] [address] [place] [address] [facility] Start: 10-31-2024 End: 10-31-2024 Patient encounter procedure 10/31/2024 11:30 AM EST Appointment [facility] [address] [place] [address] [facility] Start: 10-31-2024 End: 10-31-2024 Patient encounter procedure 10/31/2024 9:45 AM EST Appointment [facility] [facility] 3 [address] [place] [address] [facility] [employer] [facility] 3 Start: 10-28-2024 End: 10-28-2024 Patient encounter procedure 10/28/2024 8:30 AM EST Appointment [facility] [employer] [facility] 3 [address] [place] [address] [facility] 3 Start: 10-27-2024 End: 10-27-2024 Patient encounter procedure 10/27/2024 8:30 AM EST Appointment [facility] [employer] [facility] 3 [address] [facility] [address] [place] [address] [facility] [employer] [facility] 3 Start: 10-17-2024 End: 10-17-2024 ambulatory 10/17/2024 2:30 PM EST Infusion [facility] [address] [place] [address] [facility] Start: 10-17-2024 End: 10-17-2024 Patient encounter procedure 10/17/2024 2:30 PM EST Appointment [facility] [address] [place] [address] [facility] Start: 10-17-2024 End: 10-17-2025 CBC W Auto Differential panel - Blood CBC and Auto Differential Lab Routine Malignant neoplasm of upper-inner quadrant of left breast in female, estrogen receptor negative Expected: 10/17/2024, Expires: 10/17/2025 [facility] Work Phone: Comment on above: Expected: 10/17/2024, Expires: Start: 10-14-2024 End: 10-14-2024 Patient encounter procedure 10/14/2024 3:00 PM EST Appointment [facility] [address] [facility] [address] [place] [phone] [facility] Start: 10-10-2024 End: 10-10-2024 Patient encounter procedure 10/10/2024 1:00 PM EST Appointment [facility] [address] [place] [address] [facility] Start: 10-07-2024 End: 10-07-[address] Simulation w/ Scheduling Rad Onc CT Simulation w/ Scheduling Imaging Routine Malignant neoplasm of upper-inner quadrant of left breast in female, estrogen receptor negative Expected: 10/07/2024 (Approximate), Expires: 10/07/2025 [facility] Service Area Work Phone: Comment on above: Expected: 10/07/2024 (Approximate), Expi res: 10/07/2025 Start: 10-07-2024 End: 10-07-2024 Patient encounter procedure 10/07/2024 9:30 AM EST Appointment [facility] [employer] [facility] 3 [address] [facility] [address] [place] [phone] Rickey Camacho MD [address] [place], [place] [phone] [facility] 3 Start: 10-03-2024 End: 10-03-2025 DXA Skeletal system Views for bone density XR DEXA bone density Imaging Routine Malignant neoplasm of upper-inner quadrant of left breast in female, estrogen receptor negative Encounter for follow-up examination after completed treatment for conditions other than malignant neoplasm Expected: 10/03/2024, Expires: 10/03/2025 [facility] Service Area Work Phone: Comment on above: Expected: 10/03/2024, Expires: Start: 10-03-2024 End: 10-03-2024 Patient encounter procedure 10/03/2024 12:10 PM EST Office Visit [facility] [address] [place] [address] [place] [address] [place] [address] [facility] Start: 09-26-2024 End: 11-24-2025 DBT Breast - right diagnostic BI mammo right diagnostic tomosynthesis Imaging Routine Personal history of malignant neoplasm of breast Expected: 09/26/2024, Expires: 11/24/2025 [facility] Service Area Work Phone: Comment on above: Expected: 09/26/2024, Expires: Start: 09-23-2024 End: 09-23-2024 Patient encounter procedure 09/23/2024 10:00 AM EST Office Visit [facility] [address] [place] [address] [place] [address] [place] [address] [facility] Start: 09-12-2024 End: 09-12-2024 Patient encounter procedure 09/12/2024 1:15 PM EST Office Visit [facility] [address] [facility] [address] [place] [phone] [place] [address] [facility] [address] [place] [address] [facility] Start: 08-26-2024 End: 08-26-2024 Clinical Support 08/26/2024 8:30 AM EST Clinical Support [facility] [address] [facility] [address] [place] [address] Delonte Molina, [facility] [address] [facility] [place] [address] [facility] Start: 08-24-2024 End: 08-24-2024 Admission to same day surgery center [facility] [place] Comment on above: Left Breast Magseed localized Partial Ma stectomy, Bracket, Injection for [place] Lymph Node, Axillary Magseed Localized [place] Lymph Node Biopsy with Frozen Section, Possible Complete Axillary Lymph Node Dissection [91003 (CPT ) +3 more] Left Breast Magseed Localized Partial Bracket Mastectomy; [place] Lymph Node Injection; Axillary Magseed Localized [place] Lymph Node Biopsy with Frozen Section; Possible Complete Axillary Lymph Node Dissection [98866 (CPT ) +3 more] Start: 08-24-2024 End: 08-24-2024 Bx/exc lymph node open deep axillary node [facility] Start: 08-24-2024 End: 08-24-2024 Patient encounter procedure [facility] Start: 08-24-2024 Subsequent hospital visit by physician [facility] [place] Start: 08-22-2024 End: 08-22-2024 Patient encounter procedure [facility] Start: 08-15-2024 End: 08-15-2024 Patient encounter procedure [facility] Start: 08-12-2024 End: 08-12-2024 Admission to establishment 08/12/2024 1:00 PM EST Pre-Admission Testing [facility] [address] [place] [address] Agustina Woodward PA-C [address] [place] [address] [facility] Start: 08-12-2024 End: 08-12-2024 Nutrition therapy 08/12/2024 9:30 AM EST Nutrition [facility] [address] [place] [phone], LD Office Address Unavailable as of 01/17/2014 [facility] Start: 08-11-2024 End: 08-11-2024 Clinical Support 08/11/2024 1:30 PM EST Clinical Support [facility] [address] [place] [address] [facility] Start: 08-08-2024 End: 08-08-2025 Basic metabolic 2000 panel - Serum or Plasma Basic Metabolic Panel Lab Routine Edema of right lower leg Hypokalemia Expected: 08/08/2024 (Approximate), Expires: 08/08/2025 [facility] Work Phone: Comment on above: Expected: 08/08/2024 (Approximate), Expi res: 08/08/2025 Start: 08-08-2024 End: 08-08-2025 Magnesium [Mass/volume] in Serum or Plasma Magnesium Lab Routine Hypomagnesemia Expected: 08/08/2024 (Approximate), Expires: 08/08/2025 [facility] Work Phone: Comment on above: Expected: 08/08/2024 (Approximate), Expi res: 08/08/2025 Start: 08-08-2024 End: 08-08-2025 Natriuretic peptide B [Mass/volume] in Blood B-Type Natriuretic Peptide Lab Routine Edema of right lower leg Shortness of breath Expected: 08/08/2024 (Approximate), Expires: 08/08/2025 [facility] Work Phone: Comment on above: Expected: 08/08/2024 (Approximate), Expi res: 08/08/2025 Start: 08-08-2024 End: 08-08-2025 Troponin I.cardiac panel - Serum or Plasma by High sensitivity method Troponin I, High Sensitivity Lab Routine Encounter for monitoring cardiotoxic drug therapy Expected: 08/08/2024 (Approximate), Expires: 08/08/2025 [facility] Work Phone: Comment on above: Expected: 08/08/2024 (Approximate), Expi res: 08/08/2025 Start: 08-08-2024 End: 08-08-2026 US.doppler Lower extremity vein - right Vascular US lower extremity venous duplex right Vascular Ultrasound Routine Edema of right lower leg Expected: 08/08/2024 (Approximate), Expires: 08/08/2026 [facility] Service Area Work Phone: Comment on above: Expected: 08/08/2024 (Approximate), Expi res: 08/08/2026 Start: 08-08-2024 End: 08-08-2024 Patient encounter procedure [facility] Start: 08-05-2024 End: 05-05-2026 Onco-Echo Limited (Strain And 3D) [facility] Service Area Work Phone: Comment on above: Once for 1 Occurrences starting 08/05/20 until 08/05/2024 Expected: 08/05/2024 (Approximate), Expires: 05/05/2026 Start: 07-29-2024 End: 07-29-2025 NM injection only for sentinel node biopsy no scan performed NM injection only for sentinel node biopsy no scan performed Imaging Routine Malignant neoplasm of upper-inner quadrant of left breast in female, estrogen receptor negative Expected: 07/29/2024, Expires: 07/29/2025 [facility] Work Phone: Comment on above: Expected: 07/29/2024, Expires: Start: 07-29-2024 End: 07-29-2025 Request for Pre-Admission Testing Visit Request for Pre-Admission Testing Visit Procedures Routine Malignant neoplasm of upper-inner quadrant of left breast in female, estrogen receptor negative Expected: 07/29/2024 (Approximate), Expires: 07/29/2025 [facility] Area Work Phone: Comment on above: Expected: 07/29/2024 (Approximate), Expi res: 07/29/2025 Start: 07-29-2024 End: 09-28-2025 US Guidance for localization of Breast - left BI US guided breast localization left Imaging Routine Malignant neoplasm of upper-inner quadrant of left breast in female, estrogen receptor negative Expected: 07/29/2024, Expires: 09/28/2025 [facility] Work Phone: Comment on above: Expected: 07/29/2024, Expires: Start: 07-29-2024 End: 07-29-2024 Patient encounter procedure 07/29/2024 1:30 PM EST Office Visit [facility] [address] [place] [address] [place] [address] [facility] [place] [address] [facility] Start: 07-29-2024 End: 07-29-2024 Patient encounter procedure [facility] Start: 07-28-2024 End: 07-28-2024 Patient encounter procedure 07/28/2024 3:30 PM EST Office Visit [address] [place] [phone] Chava Edwards MD [address] [place] [address], [facility] 5 [place], [place] [phone] [facility] Start: 07-25-2024 End: 07-25-2025 CBC W Auto Differential panel - Blood CBC and Auto Differential Lab Routine Malignant neoplasm of upper-inner quadrant of left breast in female, estrogen receptor negative Expected: 07/25/2024 (Approximate), Expires: 07/25/2025 [facility] Work Phone: Comment on above: Expected: 07/25/2024 (Approximate), Expi res: 07/25/2025 Start: 07-25-2024 End: 07-25-2025 Comprehensive metabolic 2000 panel - Serum or Plasma Comprehensive Metabolic Panel Lab Routine Malignant neoplasm of upper-inner quadrant of left breast in female, estrogen receptor negative Expected: 07/25/2024 (Approximate), Expires: 07/25/2025 [facility] Service Area Work Phone: Comment on above: Expected: 07/25/2024 (Approximate), Expi res: 07/25/2025 Start: 07-25-2024 End: 07-25-2024 ambulatory [facility] Comment on above: Malignant neoplasm of upper-inner quadra nt of left breast in female, estrogen receptor negative Start: 07-25-2024 End: 07-25-2024 Patient encounter procedure 07/25/2024 8:30 AM EST Office Visit [facility] [address] [facility] [address] [place] [phone] [place] [address] [place] [address] [facility] Start: 07-21-2024 End: 07-21-2024 Patient encounter procedure 07/21/2024 2:40 PM EDT Office Visit [facility] [address] [facility] [address] [place] [phone] Chava Edwards MD [address] [facility], [address] [place], [place] [phone] [facility] Start: 07-18-2024 End: 07-18-2025 CBC W Auto Differential panel - Blood CBC and Auto Differential Lab Routine Malignant neoplasm of upper-inner quadrant of left breast in female, estrogen receptor negative Expected: 07/18/2024, Expires: 07/18/2025 [facility] Work Phone: Comment on above: Expected: 07/18/2024, Expires: Start: 07-18-2024 End: 07-18-2025 Comprehensive metabolic 2000 panel - Serum or Plasma Comprehensive metabolic panel Lab Routine Malignant neoplasm of upper-inner quadrant of left breast in female, estrogen receptor negative Expected: 07/18/2024, Expires: 07/18/2025 [facility] Work Phone: Comment on above: Expected: 07/18/2024, Expires: Start: 07-18-2024 End: 07-18-2024 ambulatory 07/18/2024 9:00 AM EDT Infusion [facility] [address] [place] [address] [facility] Start: 07-15-2024 End: 07-15-2024 ambulatory 07/15/2024 3:30 PM EDT Infusion [facility] [address] [place] [address] [facility] Start: 07-04-2024 End: 07-04-2024 ambulatory 07/04/2024 1:00 PM EDT Infusion [facility] [address] [facility] [address] [place] [address] [facility] Start: 06-27-2024 End: 06-27-2025 CBC W Auto Differential panel - Blood CBC and Auto Differential Lab Routine Malignant neoplasm of upper-inner quadrant of left breast in female, estrogen receptor negative (Multi) Expected: 06/27/2024, Expires: 06/27/2025 [facility] Work Phone: Comment on above: Expected: 06/27/2024, Expires: Start: 06-27-2024 End: 06-27-2025 Comprehensive metabolic 2000 panel - Serum or Plasma Comprehensive metabolic panel Lab Routine Malignant neoplasm of upper-inner quadrant of left breast in female, estrogen receptor negative (Multi) Expected: 06/27/2024, Expires: 06/27/2025 [facility] Work Phone: Comment on above: Expected: 06/27/2024, Expires: Start: 06-27-2024 End: 06-27-2025 US Head and neck soft tissue US head neck soft tissue Imaging STAT Malignant neoplasm of upper-inner quadrant of left breast in female, estrogen receptor negative Expected: 06/27/2024, Expires: 06/27/2025 [facility] Service Area Work Phone: Comment on above: Expected: 06/27/2024, Expires: Start: 06-27-2024 End: 06-27-2024 ambulatory 06/27/2024 9:00 AM EDT Infusion [facility] [address] [facility] [address] [place] [phone] [facility] Start: 06-27-2024 End: 06-27-2024 Patient encounter procedure 06/27/2024 8:50 AM EDT Office Visit [facility] [address] [facility] [address] [place] [phone] [place] [address] [phone] [facility] Start: 06-24-2024 End: 06-24-2024 ambulatory 06/24/2024 10:00 AM EDT Infusion [facility] [address] [facility] 5 [place] [phone] [facility] Start: 06-13-2024 End: 06-13-2024 ambulatory 06/13/2024 10:30 AM EDT Infusion [facility] [address] [facility] [address] [place] [phone] [facility] Start: 06-06-2024 End: 06-06-2025 CBC W Auto Differential panel - Blood CBC and Auto Differential Lab Routine Malignant neoplasm of upper-inner quadrant of left breast in female, estrogen receptor negative (Multi) Expected: 06/06/2024, Expires: 06/06/2025 [facility] Work Phone: Comment on above: Expected: 06/06/2024, Expires: Start: 06-06-2024 End: 06-06-2025 Comprehensive metabolic 2000 panel - Serum or Plasma Comprehensive metabolic panel Lab Routine Malignant neoplasm of upper-inner quadrant of left breast in female, estrogen receptor negative (Multi) Expected: 06/06/2024, Expires: 06/06/2025 [facility] Work Phone: Comment on above: Expected: 06/06/2024, Expires: Start: 06-06-2024 End: 06-06-2024 ambulatory 06/06/2024 9:00 AM EDT Infusion [facility] [address] [place] [address] [facility] Start: 06-03-2024 End: 06-03-2024 ambulatory 06/03/2024 2:00 PM EDT Infusion [facility] [address] [place] [address] [facility] Start: 05-25-2024 End: 05-25-2024 ambulatory 05/25/2024 1:00 PM EDT Infusion [facility] [address] [place] [address] [facility] Start: 05-22-[address] [facility] Start: 05-16-2024 End: 05-16-2025 Comprehensive metabolic 2000 panel - Serum or Plasma [facility] Service Area Work Phone: Comment on above: Expected: 05/16/2024 (Approximate), Expi res: 05/16/2025 Start: 05-16-2024 End: 05-16-2024 Nutrition therapy 05/16/2024 11:00 AM EDT Nutrition [facility] [address] [place] [address], LD Office Address Unavailable as of 01/17/2014 [facility] Start: 05-16-2024 End: 05-16-2024 ambulatory 05/16/2024 10:30 AM EDT Infusion [facility] [address] [facility] [address] [place] [phone] [facility] Start: 05-16-2024 End: 05-16-2024 Patient encounter procedure 05/16/2024 9:50 AM EDT Office Visit [facility] [address] [facility] [address] [place] [phone] [place] [address] [place] [address] [facility] Start: 05-13-2024 End: 05-13-2024 ambulatory 05/13/2024 11:00 AM EDT Infusion [facility] [address] [facility] [address] [place] [phone] [facility] Start: 05-09-2024 End: 05-09-2024 Patient encounter procedure 05/09/2024 2:15 PM EDT Office Visit [facility] [id number] [place] [address] [address] [place] [address] Brenda Cortes MD [address] [place] [address] [address] [place] [address] [facility] Start: 05-05-2024 End: 05-05-2025 Natriuretic peptide B [Mass/volume] in Blood B-Type Natriuretic Peptide Lab Routine Encounter for monitoring cardiotoxic drug therapy Shortness of breath Expected: 05/05/2024 (Approximate), Expires: 05/05/2025 [facility] Work Phone: Comment on above: Expected: 05/05/2024 (Approximate), Expi res: 05/05/2025 Start: 05-05-2024 End: 05-05-2025 Troponin I.cardiac panel - Serum or Plasma by High sensitivity method Troponin I, High Sensitivity Lab Routine Encounter for monitoring cardiotoxic drug therapy Expected: 05/05/2024 (Approximate), Expires: 05/05/2025 [facility] Work Phone: Comment on above: Expected: 05/05/2024 (Approximate), Expi res: 05/05/2025 Start: 04-25-2024 End: 04-25-2025 CBC W Auto Differential panel - Blood CBC and Auto Differential Lab Routine Malignant neoplasm of upper-inner quadrant of left breast in female, estrogen receptor negative (Multi) Expected: 04/25/2024, Expires: 04/25/2025 [facility] Work Phone: Comment on above: Expected: 04/25/2024, Expires: Start: 04-25-2024 End: 04-25-2025 Comprehensive metabolic 2000 panel - Serum or Plasma Comprehensive metabolic panel Lab Routine Malignant neoplasm of upper-inner quadrant of left breast in female, estrogen receptor negative (Multi) Expected: 04/25/2024, Expires: 04/25/2025 [facility] Work Phone: Comment on above: Expected: 04/25/2024, Expires: Start: 04-25-2024 End: 04-25-2024 ambulatory 04/25/2024 9:00 AM EDT Infusion [facility] [address] [facility] [address] [place] [phone] [facility] Start: 04-19-2024 End: 04-19-2024 Patient encounter procedure 04/19/2024 9:10 AM EDT Office Visit [facility] [address] [place] [phone] [place] [address] [place] [address] [facility] Start: 04-15-2024 End: 04-15-2024 Patient encounter procedure 04/15/2024 11:30 AM EDT Appointment [facility] [address] [place] [address] [facility] Start: 04-04-2024 End: 04-04-2025 CBC W Auto Differential panel - Blood CBC and Auto Differential Lab Routine Malignant neoplasm of upper-inner quadrant of left breast in female, estrogen receptor negative (Multi) Expected: 04/04/2024, Expires: 04/04/2025 [facility] Work Phone: Comment on above: Expected: 04/04/2024, Expires: Start: 04-04-2024 End: 04-04-2025 Comprehensive metabolic 2000 panel - Serum or Plasma Comprehensive metabolic panel Lab Routine Malignant neoplasm of upper-inner quadrant of left breast in female, estrogen receptor negative (Multi) Expected: 04/04/2024, Expires: 04/04/2025 [facility] Work Phone: Comment on above: Expected: 04/04/2024, Expires: Start: 04-04-2024 End: 04-04-2025 Hepatitis B virus core Ab [Presence] in Serum Hepatitis B Core Antibody, Total Lab Routine Malignant neoplasm of upper-inner quadrant of left breast in female, estrogen receptor negative (Multi) Expected: 04/04/2024, Expires: 04/04/2025 [facility] Work Phone: Comment on above: Expected: 04/04/2024, Expires: Start: 04-04-2024 End: 04-04-2025 Hepatitis B virus surface Ab [Units/volume] in Serum Hepatitis B surface antibody Lab Routine Malignant neoplasm of upper-inner quadrant of left breast in female, estrogen receptor negative (Multi) Expected: 04/04/2024, Expires: 04/04/2025 [facility] Work Phone: Comment on above: Expected: 04/04/2024, Expires: Start: 04-04-2024 End: 04-04-2025 Hepatitis B virus surface Ag [Presence] in Serum or Plasma by Immunoassay Hepatitis B surface antigen Lab Routine Malignant neoplasm of upper-inner quadrant of left breast in female, estrogen receptor negative (Multi) Expected: 04/04/2024, Expires: 04/04/2025 [facility] Work Phone: Comment on above: Expected: 04/04/2024, Expires: Start: 04-04-2024 End: 04-04-2024 ambulatory 04/04/2024 9:30 AM EDT Infusion [facility] [address] [place] [phone] [facility] Start: 04-01-2024 End: 04-01-2024 Patient encounter procedure 04/01/2024 11:30 AM EDT Appointment [facility] [address] [place] [address] [facility] Start: 03-28-2024 End: 03-28-2024 Patient encounter procedure [facility] Start: 03-23-2024 End: 03-23-2024 Patient encounter procedure 03/23/2024 10:00 AM EDT Appointment [facility] [address] [place] [phone] [facility] Start: 03-22-2024 End: 03-22-2025 Guidance for placement of CV catheter with port in Chest IR CVC port placement Imaging STAT Malignant neoplasm of upper-inner quadrant of left breast in female, estrogen receptor negative (Multi) Expected: 03/22/2024, Expires: 03/22/2025 [facility] Work Phone: Comment on above: Expected: 03/22/2024, Expires: Start: 03-22-2024 End: 03-22-2025 NM Whole body Bone Views NM bone whole body Imaging STAT Malignant neoplasm of upper-inner quadrant of left breast in female, estrogen receptor negative (Multi) Expected: 03/22/2024, Expires: 03/22/2025 [facility] Service Area Work Phone: Comment on above: Expected: 03/22/2024, Expires: Start: 03-22-2024 End: 03-22-2026 US Heart Transthoracic Transthoracic Echo Complete Echocardiography STAT Malignant neoplasm of upper-inner quadrant of left breast in female, estrogen receptor negative (Multi) Encounter for antineoplastic chemotherapy Expected: 03/22/2024 (Approximate), Expires: 03/22/2026 [facility] Work Phone: Comment on above: Expected: 03/22/2024 (Approximate), Expi res: 03/22/2026 Start: 03-11-2024 End: 03-11-2024 Patient encounter procedure 03/11/2024 1:30 PM EDT Office Visit [facility] [address] [place] [phone] Chava Edwards MD [address] [place] [address], [address] [place], [place] [phone] [facility] Start: 02-08-2024 End: 04-09-2025 US Guidance for core needle biopsy of Lymph node [facility] Work Phone: Comment on above: Expected: 02/08/2024, Expires: Start: 02-08-2024 End: 04-09-2025 US Guidance for localization of Breast - left [facility] Area Work Phone: Comment on above: Expected: 02/08/2024, Expires: Start: 01-22-2024 End: 01-22-2024 Patient encounter procedure 01/22/2024 11:00 AM EDT Office Visit [facility] [address] [place] [phone] Chava Edwards MD [address] [place] [address], [address] [place], [place] [address] [facility] Start: 01-08-2024 End: 01-08-2024 Patient encounter procedure [facility] Start: 12-25-2023 End: 12-24-2024 Comprehensive metabolic 2000 panel - Serum or Plasma [facility] Service Area Work Phone: Comment on above: Expected: 12/25/2023 (Approximate), Expi res: 12/24/2024 Start: 12-25-2023 End: 12-24-2024 CT Chest and Abdomen and Pelvis W contrast IV CT chest abdomen pelvis w IV contrast Imaging Routine CLL (chronic lymphocytic leukemia) (CMS/HCC) Expected: 12/25/2023 (Approximate), Expires: 12/24/2024 [facility] Work Phone: Comment on above: Expected: 12/25/2023 (Approximate), Expi res: 12/24/2024 Start: 12-25-2023 End: 02-23-2025 DBT Breast - bilateral BI mammo bilateral screening tomosynthesis Imaging Routine CLL (chronic lymphocytic leukemia) ([facility]/HCC) Expected: 12/25/2023 (Approximate), Expires: 02/23/2025 [facility] Work Phone: Comment on above: Expected: 12/25/2023 (Approximate), Expi res: 02/23/2025 Start: 12-25-2023 End: 12-24-2024 Immunoglobulin light chains.free panel - Serum [facility] Work Phone: Comment on above: Expected: 12/25/2023 (Approximate), Expi res: 12/24/2024 Start: 12-25-2023 End: 12-24-2024 Lactate dehydrogenase [Enzymatic activity/volume] in Serum or Plasma by Lactate to pyruvate reaction [facility] Work Phone: Comment on above: Expected: 12/25/2023 (Approximate), Expi res: 12/24/2024 Start: 12-25-2023 End: 12-24-2024 Serum Protein Electrophoresis + Immunofixation [facility] Work Phone: Comment on above: Expected: 12/25/2023 (Approximate), Expi res: 12/24/2024 Start: 01-09-2022 End: 01-09-2022 Patient encounter procedure Appointment [facility] Work Phone: Start: 01-07-2022 End: 01-07-2022 Patient encounter procedure Appointment [facility] Work Phone: Start: 01-02-2022 End: 01-02-2022 Patient encounter procedure Appointment [facility] Work Phone: Start: 12-31-2021 End: 12-31-2021 Patient encounter procedure Appointment [facility] Work Phone: Start: 12-26-2021 End: 12-26-2021 Patient encounter procedure Appointment [facility] Work Phone: Start: 12-24-2021 End: 12-24-2021 Patient encounter procedure Appointment [facility] Work Phone: Start: 12-23-2021 End: 12-23-2021 Radiologic examination knee 3 views [id number] [facility] Work Phone: Start: 11-07-2019 End: 11-07-[address] [facility] Work Phone: Start: 2011 Hepatitis B Vaccines (1 of 3 - Risk 3-dose series) Hepatitis B Vaccines (1 of 3 - Risk 3-dose series) [facility] Start: 2011 RSV High Risk: (Elderly (60+) or Population) (1 - Risk 60-74 years 1-dose series) RSV High Risk: (Elderly (60+) or Population) (1 - Risk 60-74 years 1-dose series) [facility] Start: 2011 RSV patients and/or patients aged 60+ years (1 - 1-dose 60+ series) RSV patients and/or patients aged 60+ years (1 - 1-dose 60+ series) [facility] Start: 2001 RSV High Risk: (Elderly (60+) or Population) (1 - Risk 50-74 years 1-dose series) RSV High Risk: (Elderly (60+) or Population) (1 - Risk 50-74 years 1-dose series) [facility] Start: 1991 Screening for malignant neoplasm of breast Mammogram [facility] Start: 1973 DTaP/Tdap/Td Vaccines (1 - Tdap) DTaP/Tdap/Td Vaccines (1 - Tdap) [facility] Start: 1970 Hepatitis A Vaccines (1 of 2 - Risk 2-dose series) Hepatitis A Vaccines (1 of 2 - Risk 2-dose series) [facility] Start: 1970 Pneumococcal vaccination Pneumococcal Vaccine (1 of 2 - PCV) [facility] Start: 1970 Urine screening for protein Diabetes: Urine Protein Screening [facility] Start: 1970 Zoster Vaccines (1 of 2) Zoster Vaccines (1 of 2) [facility] Start: 1969 Hepatitis C screening Hepatitis C Screening [facility] Start: 1961 Glaucoma screening Diabetes: Retinopathy Screening [facility] Start: 1957 Pneumococcal Vaccine: 65+ Years (1 - PCV) Pneumococcal Vaccine: 65+ Years (1 - PCV) [facility] Start: 1957 Pneumococcal Vaccine: 65+ Years (1 of 2 - PCV) Pneumococcal Vaccine: 65+ Years (1 of 2 - PCV) [facility] Start: 1956 COVID-19 Vaccine (#1) COVID-19 Vaccine (#1) [facility] Start: 1952 MMR Vaccines (1 of 1 - Standard series) MMR Vaccines (1 of 1 - Standard series) [facility] Start: [address] [facility] Start: 1951 Hemoglobin A1c measurement Diabetes: Hemoglobin A1C [facility] Start: 1951 Lipid panel Lipid Panel [facility] Start: 1951 Medicare Annual Wellness Visit Medicare Annual Wellness Visit (AWV) [facility] Start: 1951 Screening for malignant neoplasm of colon [facility] Start: 1951 Screening for osteoporosis Bone Density Scan [facility] Start: 1951 Urine screening for protein Diabetes: Urine Protein Screening [facility] End: 08-24-2024 Blood type and Indirect antibody screen panel - Blood Type And Screen Lab Timed As needed (Lab) until discontinued starting 08/24/2024 [facility] Work Phone: Comment on above: As needed (Lab) until discontinued start ing 08/24/2024 End: 01-26-2026 CBC W Auto Differential panel - Blood CBC and Auto Differential Lab Routine CLL (chronic lymphocytic leukemia) (Multi) Every 6 months for 2 Occurrences starting 01/26/2025 until 01/26/2026 [facility] Service Area Work Phone: Comment on above: Every 6 months for 2 Occurrences startin g 01/26/2025 until 01/26/2026 End: 10-21-2026 CBC W Auto Differential panel - Blood CBC and Auto Differential Lab Routine Malignant neoplasm of upper-inner quadrant of left breast in female, estrogen receptor negative Every 6 months for 3 Occurrences starting 04/20/2025 until 10/21/2026 [facility] Area Work Phone: Comment on above: Every 6 months for 3 Occurrences startin g 04/20/2025 until 10/21/2026 End: 07-29-2026 Comprehensive metabolic 2000 panel - Serum or Plasma Comprehensive Metabolic Panel Lab Routine CLL (chronic lymphocytic leukemia) (Multi) Every 6 months for 2 Occurrences starting 01/26/2025 until 07/29/2026 [facility] Work Phone: Comment on above: Every 6 months for 2 Occurrences startin g 01/26/2025 until 07/29/2026 End: 10-21-2026 Comprehensive metabolic 2000 panel - Serum or Plasma Comprehensive Metabolic Panel Lab Routine Malignant neoplasm of upper-inner quadrant of left breast in female, estrogen receptor negative Every 6 months for 4 Occurrences starting 04/20/2025 until 10/21/2026 [facility] Work Phone: Comment on above: Every 6 months for 4 Occurrences startin g 04/20/2025 until 10/21/2026 End: 01-08-2024 CT Chest and Abdomen and Pelvis W contrast IV [facility] Work Phone: Comment on above: Once for 1 Occurrences starting 01/08/20 until 01/08/2024 End: 01-08-2024 DBT Breast - bilateral [facility] Work Phone: Comment on above: Once for 1 Occurrences starting 01/08/20 until 01/08/2024 End: 08-24-2024 Glucose [Mass/volume] in Serum or Plasma POCT Glucose Point of Care Testing - Docked Device Routine Once (Lab) for 1 Occurrences starting 08/24/2024 until 08/24/2024 [facility] Work Phone: Comment on above: Once (Lab) for 1 Occurrences starting until 08/24/2024 End: 12-13-2024 Guidance for removal of CV catheter with port from Chest [facility] Work Phone: Comment on above: Once for 1 Occurrences starting 12/14/19 until 12/13/2024 End: 10-21-2026 Immunoglobulin light chains.free panel - Serum [place]/Lambda Free Light Chain, Serum Lab Routine Malignant neoplasm of upper-inner quadrant of left breast in female, estrogen receptor negative Every 6 months for 4 Occurrences starting 04/20/2025 until 10/21/2026 [facility] Work Phone: Comment on above: Every 6 months for 4 Occurrences startin g 04/20/2025 until 10/21/2026 Rad Onc Intent to Treat Rad Onc Intent to Treat Radiation Oncology Routine Malignant neoplasm of upper-inner quadrant of left breast in female, estrogen receptor negative Ordered: 10/07/2024 [facility] Work Phone: Comment on above: Ordered: 10/07/2024 End: 10-21-2026 Serum Protein Electrophoresis + Immunofixation Serum Protein Electrophoresis + Immunofixation Lab Routine Malignant neoplasm of upper-inner quadrant of left breast in female, estrogen receptor negative Every 6 months for 4 Occurrences starting 04/20/2025 until 10/21/2026 [facility] Work Phone: Comment on above: Every 6 months for 4 Occurrences startin g 04/20/2025 until 10/21/2026 Surgical pathology study [facility] Service Area Work Phone: Comment on above: Release Upon Ordering for 1 Occurrences starting 02/08/2024, 1 completed Surgical pathology study [facility] Work Phone: Comment on above: Release Upon Ordering for 1 Occurrences starting 08/24/2024, 1 completed End: 08-15-2024 US.doppler Lower extremity vein - right [facility] Service Area Work Phone: Comment on above: Once for 1 Occurrences starting 08/15/20 until 08/15/2024 Payers Date Payer Category Payer Self-pay [id number] 2023 Medicare [facility] E MEDICARE [employer] MEDICARE [id number] 2023-Present [address] [place] [address] [id number] 2023 Medicare (Managed Care) [facility] MEDICARE [id number] 2020 Unknown [id number] 1951 Unknown [id number] 2.16.840.1.579044.3.579. 2.159 1951 Unknown [id number] 2.16.840.1.156981.3.579. 2.2 1951 Unknown [id number] 2.16.840.1.333127.3.579. 2.1241 1951 Unknown [id number] 2.16.840.1.542583.3.579. 2.1241 1951 Unknown [id number] 2.16.840.1.938065.3.579. 2.1241 1951 Unknown [id number] 2.16.840.1.496831.3.579. 2.1241 1951 Unknown [id number] 2.16.840.1.547137.3.579. 2.1246 1951 Unknown [id number] 2.16.840.1.680936.3.579. 2.1246 1951 Unknown [id number] 2.16.840.1.244584.3.579. 2.1246 1951 Unknown [id number] 2.16.840.1.426642.3.579. 2.1246 1951 Unknown [id number] 2.16.840.1.502072.3.579. 2.1243 1951 Unknown [id number] 2.16.840.1.461353.3.579. 2.1243 1951 Unknown [id number] 2.16.840.1.071288.3.579. 2.1243 1951 Unknown [id number] 2.16.840.1.020979.3.579. 2.1242 1951 Unknown [id number] 2.16.840.1.647538.3.579. 2.1244 1951 Unknown [id number] 2.16.840.1.112660.3.579. 2.1244 1951 Unknown [id number] 2.16.840.1.970438.3.579. 2.1244 1951 Unknown [id number] 2.16.840.1.305656.3.579. 2.1244 1951 Unknown [id number] 2.16.840.1.195225.3.579. 2.1244 1951 Unknown [id number] 2.16.840.1.919567.3.579. 2.1244 1951 Unknown [id number] 2.16.840.1.902135.3.579. 2.1244 1951 Unknown [id number] 2.16.840.1.919178.3.579. 2.1244 1951 Unknown [id number] 2.16.840.1.123675.3.579. 2.1244 1951 Unknown [id number] 2.16.840.1.831320.3.579. 2.1244 1951 Unknown [id number] 2.16.840.1.650543.3.579. 2.1244 1951 Unknown [id number] 2.16.840.1.266864.3.579. 2.1244 1951 Unknown [id number] 2.16.840.1.345021.3.579. 2.1244 1951 Unknown [id number] 2.16.840.1.928356.3.579. 2.1244 1951 Unknown [id number] 2.16.840.1.096053.3.579. 2.1244 1951 Unknown [id number] 2.16.840.1.527334.3.579. 2.1244 1951 Unknown [id number] 2.16.840.1.739429.3.579. 2.1244 1951 Unknown [id number] 2.16.840.1.849920.3.579. 2.1244 1951 Unknown [id number] 2.16.840.1.462178.3.579. 2.1244 1950 Unknown [id number] 2.16.840.1.478378.3.579. 2.1244 1950 Unknown [id number] 2.16.840.1.132458.3.579. 2.1244 1950 Unknown [id number] 2.16.840.1.861734.3.579. 2.1244 1950 Unknown [id number] 2.16.840.1.213052.3.579. 2.1244 1950 Unknown [id number] 2.16.840.1.225137.3.579. 2.1244 1950 Unknown [id number] 2.16.840.1.796489.3.579. 2.1244 1950 Unknown [id number] 2.16.840.1.981680.3.579. 2.1244 1950 Unknown [id number] 2.16.840.1.710768.3.579. 2.1244 1950 Unknown [id number] 2.16.840.1.898101.3.579. 2.1244 1950 Unknown [id number] 2.16.840.1.957785.3.579. 2.1244 1950 Unknown [id number] 2.16.840.1.832077.3.579. 2.1244 1950 Unknown [id number] 2.16.840.1.986052.3.579. 2.1244 1950 Unknown [id number] 2.16.840.1.757761.3.579. 2.1244 1950 Unknown [id number] 2.16.840.1.625977.3.579. 2.1244 1950 Unknown [id number] 2.16.840.1.307503.3.579. 2.1244 1950 Unknown [id number] 2.16.840.1.597454.3.579. 2.1244 1950 Unknown [id number] 2.16.840.1.130335.3.579. 2.1244 1950 Unknown [id number] 2.16.840.1.726150.3.579. 2.1244 1950 Unknown [id number] 2.16.840.1.996176.3.579. 2.1244 1950 Unknown [id number] 2.16.840.1.579772.3.579. 2.1244 1950 Unknown [id number] 2.16.840.1.679376.3.579. 2.1244 1950 Unknown [id number] 2.16.840.1.321595.3.579. 2.1244 1950 Unknown [id number] 2.16.840.1.533679.3.579. 2.1244 1950 Unknown [id number] 2.16.840.1.734455.3.579. 2.1244 1950 Unknown [id number] 2.16.840.1.770164.3.579. 2.1244 1950 Unknown [id number] 2.16.840.1.756893.3.579. 2.1244 1950 Unknown [id number] 2.16.840.1.489895.3.579. 2.1244 1950 Unknown [id number] 2.16.840.1.903169.3.579. 2.1244 1950 Unknown [id number] 2.16.840.1.757439.3.579. 2.1245 1950 Unknown [id number] 2.16.840.1.504263.3.579. 2.1244 1950 Unknown [id number] 2.16.840.1.873114.3.579. 2.1244 1950 Unknown [id number] 2.16.840.1.178232.3.579. 2.1244 1950 Unknown [id number] 2.16.840.1.536616.3.579. 2.1244 1950 Unknown [id number] 2.16.840.1.720487.3.579. 2.1244 1950 Unknown [id number] 2.16.840.1.898806.3.579. 2.1244 1950 Unknown [id number] 2.16.840.1.265032.3.579. 2.1244 1950 Unknown [id number] 2.16.840.1.990157.3.579. 2.1244 1950 Unknown [id number] 2.16.840.1.132266.3.579. 2.1245 Private Health Insurance Unknown [facility] [id number] Unknown [id number] 2.16.840.1.002232.3.579. 2.462 Unknown [id number] 2.16.840.1.298306.3.579. 2.462 Unknown [id number] 2.16.840.1.190689.3.579. 2.462 Unknown [id number] 2.16.840.1.336186.3.579. 2.462 Social History Date Type Detail Facility Start: 11-07-2019 End: 12-24-2021 Assertion Unknown if ever smoked [facility] Work Phone: Start: 1950 Sex Assigned At Female [facility] Start: 1950 Sex Assigned At Not on file [facility] Work Phone: Start: 02-08-2024 End: 02-20-2025 Gender identity Not on file [facility] Start: 12-15-2023 End: 02-20-2025 Exposure to SARS-CoV-2 (event) Not sure [facility] Start: 02-08-2024 End: 02-20-2025 History of Social function [facility] Start: 02-23-2024 Tobacco smoking stat us PRIS Never smoked tobacco [facility] Work Phone: Start: 02-23-2024 Tobacco use and exposure Smokeless tobacco non-user [facility] Work Phone: Start: 05-05-2024 End: 05-15-2025 Alcoholic beverage intake Current drinker of alcohol (finding) [facility] Work Phone: Start: 05-05-2024 Alcohol Comment rare [facility] Work Phone: Start: 08-12-2024 Alcohol Comment occasional drink [facility] Work Phone: Start: 08-16-2022 End: 12-08-2024 Sex Female (finding) [facility] Start: 08-16-2022 Sex Female [facility] Medical Equipment Procedure Code Equipment Code Equipment Origin al Text Equipment Identifier Dates Kit, Power Port, Slim, [place]vue, 8fr - [id number] Start: 04-01-2024 Functional Status Date Assessment Result Facility 07-31-2025 Functional status 144/80 025 11:01 AM Amirah Awad MA 144/80 [facility] 07-31-2025 Vital signs 75 07/31/2025 11 :01 AM Amirah Awad MA [facility] Work Phone: 07-31-2025 [facility] Work Phone: 02-20-2025 Patient Health [facility] ionnaire 2 item (PHQ-2) [Reported] [facility] Work Phone: Clinical Notes 08-21-2016 to 07-31-2025 Dima Cage MD - 07/31/2025 11:30 AM Tyrell Saunders RN - 07/31/2025 11:30 AM Mustapha Cortes MD - 05/15/2025 11:15 AM Bonnie Edwards MD - 04/20/2025 9:00 AM EDT Note Date & Type Note Facility 07-31-2025 History of Present illness Narrative Images from the original note were not included. Breast Medical Oncology Clinic Location: [facility] Visit Type: Follow-up Visit Oncologic History: 01/08/2024: Screening Mammogram: New grouped irregular masses in the deep central superior left breast. There is an enlarged dense left axillary lymph nodes. No findings in the right breast. 01/08/2024: CT chest abdomen pelvis obtained for monitoring of CLL/SLL. There are scattered groundglass micronodularity's of the bilateral lung bases unchanged since 2015. Enlarged left axillary lymph nodes new compared to August 2016. Stable subcentimeter lesion of the liver with no new worrisome hepatic lesions. 01/20/2024: Left breast ultrasound shows multiple hypoechoic masses 12:00 15 cm from the nipple correlating with the mammogram findings. 02/08/2024: Left breast 11:00 10 cm from the nipple biopsy shows invasive ductal carcinoma grade 3, ER negative, NJ positive (30%) and HER2 positive. Left breast 12:00 10 cm from the nipple biopsy shows invasive ductal carcinoma grade 3, ER negative, NJ positive (5 to 10%) HER2 positive. Axillary lymph node biopsy shows metastatic carcinoma with mucin production. 03/22/2024: Bone scan: Foci of increased radiotracer uptake in the frontal bone of the calvarium. 04/04/2024: Initiated neoadjuvant TCHP 04/15/2024: CT head shows no intracranial pathology or evidence of calvarial pathology. 07/18/24: C6 of neoTCHP 08/24/2024: L PM/SLNBx: No residual carcinoma pathologic complete response ypT0 ypN0 10/27/2024-11/17/2024: Completed radiation 10/31/2024: Resumed phesgo 11/2024: Started anastrozole 06/19/2025: Completed phesgo Subjective: Interval History History of Present Illness Patient presents today for follow-up visit. She reports a general improvement in her condition, with increased strength and a return to normalcy. Anastrozole is being taken without significant side effects, although occasional hot flashes and transient emotional lability are noted. Genetic testing was discussed but not pursued. Her port has been removed, and a mammogram with Dr. Carpenter is scheduled for 08/2025. Intermittent blurry vision has been experienced, suspected to be related to blood sugar levels. An appointment with an wastewater superintendent is scheduled for 09/2025 to investigate potential macular degeneration, possibly as a side effect of chemotherapy. Significant eye issues were recalled during radiation and immunotherapy treatments, but these have largely resolved, with occasional flare-ups attributed to eye strain from reading. Neuropathy has improved, returning to its pre-treatment state. 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 No new pain is reported, but occasional swelling under the arm and at the site of lymph node removal is mentioned. Physical therapy has not been sought for this issue. She reports no cough or shortness of breath but does experience intermittent chest pain, described as a zinging sensation rather than pressure. This pain is sometimes alleviated by slow, deep breaths and occasionally feels as though it originates from the back, speculated to be related to surgery. Gynecologic History: Age of first menses: 17 years old Age of last menses: 51 years old ; FLB at age 24 Post-menopausal She did breastfeed 4-6 weeks Uterus/Ovaries: S/p TAHBSO- fibroid tumors and ovarian cysts OCP: 3 years HRT: No Pertinent Family history: Breast Cancer: None Ovarian Cancer: None Pancreatic Cancer: None Other: Mother- cecal cancer Social History Marilia Guzman reports that she has never smoked. She has never used smokeless tobacco. She reports current alcohol use. She reports no history of drug use. ROS: Review of Systems All other systems reviewed and are negative. Physical Examination: BP 144/80 Pulse 75 Temp 36.6 C (97.9 F) (Temporal) Resp 16 Wt 60.9 kg (134 lb 4.2 oz) SpO2 97% BMI 24.52 kg/m Physical Exam Vitals and nursing note reviewed. Constitutional: General: She is not in acute distress. Appearance: Normal appearance. She is not toxic-appearing. HENT: Head: Normocephalic and atraumatic. Eyes: Conjunctiva/sclera: Conjunctivae normal. Cardiovascular: Rate and Rhythm: Normal rate. Pulmonary: Effort: Pulmonary effort is normal. No respiratory distress. Musculoskeletal: Cervical back: Normal range of motion. Skin: General: Skin is warm and dry. Neurological: Mental Status: She is alert. Psychiatric: Mood and Affect: Mood normal. Breast Examination: . No masses, skin or nipple changes in either breast. ECOG Performance Status: [x] 0 Fully active, able to carry on all pre-disease performance without restriction [] 1 Restricted in physically strenuous activity but ambulatory and able to carry out work of a light or sedentary nature, e.g., light house work, office work [] 2 Ambulatory and capable of all selfcare but unable to carry out any work activities; up and about more than 50% of waking hours [] 3 Capable of only limited selfcare; confined to bed or chair more than 50% of waking hours [] 4 Completely disabled; cannot carry on any selfcare; totally confined to bed or chair [] 5 Results: Labs: Reviewed Lab Results Component Value Date WBC 5.6 01/23/2025 HGB 12.6 01/23/2025 HCT 37.0 01/23/2025 MCV 95 01/23/2025 PLT 164 01/23/2025 Chemistry Lab Results Component Value Date/Time NA 142 01/23/2025 1451 K 4.2 01/23/2025 1451 CL 107 01/23/2025 1451 CO2 24 01/23/2025 1451 BUN 32 (H) 01/23/2025 1451 CREATININE 0.69 01/23/2025 1451 Lab Results Component Value Date/Time CALCIUM 9.5 01/23/2025 1451 ALKPHOS 96 01/23/2025 1451 AST 37 01/23/2025 1451 ALT 40 01/23/2025 1451 BILITOT 0.6 01/23/2025 1451 Imaging: Reviewed above in Onc History Pathology: Reviewed above in Onc History Assessment: At least Clinical prognostic stage IIA (mcT1 cN1 cM0) infiltrating ductal carcinoma of the left breast; Dx in 01/2024 ; Grade 3; ER negative, NJ positive (30%), HER2 positive; Completed 6 cycles of neoadjuvant TCHP; S/p L PM/SLNBx, ypT0 ypN0; S/p radiation; Completed 1 year of HER2 treatments; On anastrozole Marilia Guzman is a very pleasant 75 y.o. postmenopausal female with newly diagnosed breast cancer with history of CLL managed expectantly. Tolerating anastrozole well. No evidence of breast cancer recurrence per patient history, physical examination and imaging findings. Plan: Surgical Plan: S/p L PM/SLNBx Additional biopsy: No further biopsy indicated Radiation Plan: Completed Additional staging scans/DEXA/echo: Baseline staging scans reviewed. Baseline DEXA 09/2024 with osteopenia Additional Path info (i.e Ki67, PDL1): Not indicated Gene assays: Not indicated Systemic treatment plan: Anastrozole Intent: Curative Clinical trial: Not eligible for our current trials Endocrine therapy: Anastrozole HER2 treatment: Completed 1 year of H/P Targeted agents: not indicated Chemotherapy: S/p neoTCHP x6 BMA: We discussed the role of zoledronic acid as adjuvant therapy in post-menopausal (natural or induced) women with breast cancer who are on systemic therapy. Will defer for now per patient request. Access: Removed Supportive meds: Anti-emetics and EMLA cream sent to pharmacy Genetic testing: Met with genetics, was not indicated and thus not pursued. Fertility preservation: Not indicated Other active problems/orders: CLL: managed expectantly with Dr. Edwards Osteopenia: Zometa discussed above, declined. Will monitor with another DEXA in 2 years Surveillance plan: Continue yearly mammogram; per surg onc team Follow-up: November 2025 Marilia Guzman expressed understanding of the plan outlined above. Marilia Guzman had ample time to ask questions. Marilia Guzman understands she can contact us at any time should she have additional questions or issues arise in the interim. Dima Cage MD Breast Medical Oncology [facility] Portions of this note were dictated utilizing voice recognition software. FUV completed. POC reviewed with pt. who verbalizes understanding per teach back method. Pt agreeable to call our office for any questions, issues, or concerns. Next FUV with Dr Cage in 4 months. Pt to scheduling prior to discharge from office. documented in this encounter [facility] Work Phone: 05-15-2025 History of Present illness Narrative Patient: Marilia Guzman Date of : 1950 Chief Complaint/Active Symptoms: Marilia Guzman is a 74 y.o. female who returns today for cardiac follow-up. Has 2 more treatments of her immunotherapy. Will get severe diarrhea about 5-7 days after therapy. Feels washed out associated with the diarrhea. No chest pain or discomfort, no shortness of breath. No edema. Cancer Diagnosis: Left breast cancer, ER negative, NJ+ 30%, HER2+ Oncologist: Josie Yun Treatment: TCHP, completed 6 cycles 07/18/24, on pertuzumab/traztuzumab through 05/2025. 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 Testing: Echo 04/2025: EF 50%, strain -17.2 Echo 01/30/25: EF 55-60%, strain -14.6 (?quality Echo : EF 55-60%, strain -22.9 Review of Systems Constitutional: Negative. Respiratory: Negative for shortness of breath. Cardiovascular: Negative. Gastrointestinal: Positive for diarrhea. Genitourinary: Negative. Neurological: Negative for dizziness and light-headedness. Psychiatric/Behavioral: Negative. All other systems reviewed and are negative. Objective: Vitals: 05/15/25 1132 BP: 130/78 Pulse: 68 Vitals: 05/15/25 1132 Weight: 59.9 kg (132 lb) Allergies: Allergies[1] Medications: Current Outpatient Medications Medication Instructions anastrozole (ARIMIDEX) 1 mg, oral, Daily, Swallow whole with a drink of water. empagliflozin (JARDIANCE) 25 mg, Daily furosemide (LASIX) 20 mg, oral, Daily PRN lidocaine-prilocaine (Emla) 2.5-2.5 % cream losartan 50 mg tablet 50 mg, hydroCHLOROthiazide 12.5 mg tablet 12.5 mg Daily meloxicam (MOBIC) 15 mg, Daily metFORMIN (GLUCOPHAGE) 500 mg, 3 times daily simvastatin (ZOCOR) 20 mg, Nightly Physical Examination: GENERAL: Well developed, well nourished, in no acute distress. HEENT: NC AT, anicteric sclera NECK: Supple, no JVD, no bruit. CHEST: Symmetric and nontender. LUNGS: Clear to auscultation bilaterally, normal respiratory effort. HEART: PMI is nondisplaced. RRR with normal S1 and S2, no S3, no mumur or rub. No carotid or abdominal bruits ABDOMEN: Soft, NT, ND without palpable organomegaly or bruits EXTREMITIES: Warm with good color, no clubbing or cyanosis. There is no edema noted. PERIPHERAL VASCULAR: Pulses present and equally palpable; 2+ throughout. MUSCULOSKELETAL: No significant joint or limb deformity NEURO/PSYCH: Alert and oriented times three with approppriate behavior and responses. Nonfocal motor examination with normal gait and ambulation Skin: no rash or lesions on exposed skin or reported. Lab: CBC: Lab Results Component Value Date WBC 5.6 01/23/2025 RBC 3.91 (L) 01/23/2025 HGB 12.6 01/23/2025 HCT 37.0 01/23/2025 PLT 164 01/23/2025 CMP: Lab Results Component Value Date NA 142 01/23/2025 K 4.2 01/23/2025 CL 107 01/23/2025 CO2 24 01/23/2025 BUN 32 (H) 01/23/2025 CREATININE 0.69 01/23/2025 GLUCOSE 149 (H) 01/23/2025 CALCIUM 9.5 01/23/2025 Magnesium: Lab Results Component Value Date MG 1.91 10/03/2024 Lipid Profile: No results found for: CHLPL, TRIG, HDL, LDLCALC, LDLDIRECT TSH: No results found for: TSH BNP: Lab Results Component Value Date BNP 15 05/13/2024 PT/INR: Lab Results Component Value Date PROTIME 10.2 03/22/2024 INR 0.9 03/22/2024 HgBA1c: No results found for: HGBA1C BMP: Lab Results Component Value Date NA 142 01/23/2025 NA 143 12/13/2024 NA 142 10/03/2024 K 4.2 01/23/2025 K 4.2 12/13/2024 K 4.1 10/03/2024 CL 107 01/23/2025 CL 109 (H) 12/13/2024 CL 104 10/03/2024 CO2 24 01/23/2025 CO2 26 12/13/2024 CO2 27 10/03/2024 BUN 32 (H) 01/23/2025 BUN 27 (H) 12/13/2024 BUN 24 (H) 10/03/2024 CREATININE 0.69 01/23/2025 CREATININE 0.72 12/13/2024 CREATININE 0.87 10/03/2024 Cardiac Enzymes: Lab Results Component Value Date TROPHS 4 08/12/2024 TROPHS 4 05/13/2024 Hepatic Function Panel: Lab Results Component Value Date ALKPHOS 96 01/23/2025 ALT 40 01/23/2025 AST 37 01/23/2025 PROT 6.1 (L) 01/23/2025 PROT 6.1 (L) 01/23/2025 BILITOT 0.6 01/23/2025 Labs reviewed. Diagnostic Studies: Echo from April reviewed and summarized in HPI No nuclear medicine results found for the past 12 months No valid procedures specified. EKG: EKG today - NSR with PACs, low voltage QRS, borderline criteria for septal OK. Radiology: No orders to display ASSESSMENT Problem List Items Addressed This Visit Malignant neoplasm of upper-inner quadrant of left breast in female, estrogen receptor negative Encounter for monitoring cardiotoxic drug therapy Relevant Orders Onco-Echo Limited (Strain And 3D) Troponin I, High Sensitivity B-Type Natriuretic Peptide Essential hypertension, benign Relevant Orders ECG 12 lead (Clinic Performed) (Completed) Other Visit Diagnoses SOB (shortness of breath) Relevant Orders B-Type Natriuretic Peptide PLAN 1. Left breast cancer. Monitoring for cardiotoxic drug therapy. Patient is stable without signs or symptoms of heart failure. Will check her troponin and BN peptide given her treatment. We have requested an echo in July about a month after her last chemo treatment for her washout evaluation. Will see her after that echocardiogram if she is doing well at that time pending on findings we will either see her intermittently beyond then or on an as needed basis. 2. Hypertension. Blood pressures are controlled on her current medical regimen. As discussed we will see the patient in 3 months after her next echocardiogram. [1] Allergies Allergen Reactions Aluminum Rash Rash under arms Levofloxacin Myalgia Frozen elbow Nickel Dermatitis Allergy to nickel and aluminium documented in this encounter [facility] Work Phone: 04-20-2025 History of Present illness Narrative Cancer History: Treatment Synopsis: Accidentally discovered SLL, on cecal polyp, on routine colonoscopy in August 2016 stage IIA (mcT1 cN1 cM0) infiltrating ductal carcinoma of the left breast; Dx in 01/2024 ; Grade 3; ER negative, NJ positive (30%), HER2 positive; Completed 6 cycles of neoadjuvant TCHP at [facility]. History of present illness: The patient is a 66-year-old woman whose mother passed from metastatic CA cecum. The patient is episcopal in obtaining colonoscopies. A recent colonoscopy by you found a 4 mm sessile ascending colonic polyp, two 2 mm sigmoid colonic polyps. Histology of cecal polyp revealed dense lymphoid infiltrate consisting of small lymphocytes composed of B lymphocytes positive for CD5, CD23, and BCL-2 and negative for CD10 and cyclin D1. The ascending colonic polyp and sigmoid colonic polyp did not reveal any abnormalities. The patient is asymptomatic. You referred her to me for further evaluation and management. The patient had come for follow-up on 05/18/2019. The patient has returned after a hiatus of 2.5 years. Apparently the patient had a mammogram on 05/04/2019 and it revealed possible lymph node in the left axilla but there was no abnormality in the breast itself. There is a palpable lymph node in the left axilla. Since last evaluation, the patient has done reasonably well. She did have left ear infection which resolved with therapy. The patient and her had come for follow-up on January 22, 2024 regarding history of CLL/SLL the patient is asymptomatic but anxious to know results of the tests performed. History of Present Illness: ID Statement: MARILIA GUZMAN is a 71 year old Female Chief Complaint: follow-up Interval History: The patient and her had come for a follow up on 06/14/2021 regarding her history of CLL / SLL. She reports doing well and denies any symptoms such as weight loss, fevers, night sweats and GI complaints. The patient has returned after hiatus of almost 3 years on July 28, 2024 regarding history of CLL/SLL. Since last evaluation the patient underwent left knee replacement in November 2021 also had URI-like symptoms and was placed on antibiotics last fall 2022. The patient has known history of CLL. In the past she had presented with left axillary lymph node. Breast exam as well as mammograms did not reveal any evidence of lumps in the breast. The patient was then lost to follow-up. She now presents with lump in the left axilla. Denied history of fevers, weight loss, night sweats, chest pain, shortness of breath, nausea, vomiting, hematemesis, melena, hematochezia and hematuria. Patient had come for follow-up on 04/2025 regarding history of CLL/SLL. The patient is asymptomatic. The patient and her had come for follow-up on April 20, 2025 regarding history of CLL/SLL, MC T1, cN1 M0 infiltrating ductal carcinoma of left breast stage IIa, ER negative NJ positive H ER 2 positive, currently receiving Phesgo every 3 weeks cycle 16 today. Past medical history 1. CLL 2. HTN 3. DM Past surgical history 1. Cholecystectomy 2. 3. EVER-BSO Last mammogram was 7 years ago. Last colonoscopy was 1 year ago. Review of Systems: System Review All other systems have been reviewed and are negative for complaint. Constitutional NEGATIVE: Fever, Chills, Anorexia, Weight Loss, Malaise Eyes NEGATIVE: Blurry Vision, Drainage, Diploplia, Redness, Vision Loss/ Change ENMT NEGATIVE: Nasal Discharge, Nasal Congestion, Ear Pain, Mouth Pain, Throat Pain Respiratory NEGATIVE: Dry Cough, Productive Cough, Hemoptysis, Wheezing, Shortness of Breath Cardiology NEGATIVE: Chest Pain, Dyspnea on Exertion, Orthopnea, Palpitations, Syncope Gastrointestinal NEGATIVE: Abdominal Pain, Constipation, Diarrhea, Nausea, Vomiting Comments abdominal bloating Genitourinary NEGATIVE: Discharge, Dysuria, Flank Pain, Frequency, Hematuria Musculoskeletal NEGATIVE: Decreased ROM, Pain, Swelling, Stiffness, Weakness Neurological NEGATIVE: Dizziness, Confusion, Headache, Seizures, Syncope Psychiatric NEGATIVE: Mood Changes, Anxiety, Hallucinations, Sleep Changes, Suicidal Ideas Skin NEGATIVE: Mass, Pain, Pruritus, Rash, Ulcer Endocrine NEGATIVE: Heat Intolerance, Cold Intolerance, Sweat, Polyuria, Thirst Hematologic/Lymph NEGATIVE: Anemia, Bruising, Easy Bleeding, Night Sweats, Petechiae Allergic/Immunologic NEGATIVE: Anaphylaxis, Itchy/ Teary Eyes, Itching, Sneezing, Swelling Breast NEGATIVE: Pain, Mass, Discharge, Nipple Itching, Gynecomastia Allergies and Intolerances: Intolerances: false nail adhesive: Environment, Unknown, Active Outpatient Medication Profile: * Patient Currently Takes Medications as of 14-Jun-2021 13:56 documented in Structured Notes Vitamin D3 2000 intl units oral capsule : Last Dose Taken: , 1 cap(s) orally once a day Hurst-3: Last Dose Taken: , orally B Complex 50: Last Dose Taken: meloxicam 15 mg oral tablet: Last Dose Taken: , 1 tab(s) orally once a day metFORMIN 500 mg oral tablet, extended release: Last Dose Taken: , orally 3 times a day Jardiance 25 mg oral tablet: Last Dose Taken: , 1 tab(s) orally once a day (in the morning) lisinopril-hydrochlorothiazide 20 mg-12.5 mg oral tablet: Last Dose Taken: , 0.5 tab(s) orally once a day Medical History: DM (diabetes mellitus): ICD-10: E11.9, Status: Active HTN (hypertension): ICD-10: I10, Status: Active CLL (chronic lymphocytic leukemia): ICD-10: C91.90, Status: Active Surg History: S/P EVER-BSO: ICD-10: Z90.710, Status: Active History of section: ICD-10: Z98.891, Status: Active S/P cholecystectomy: ICD-10: Z90.49, Status: Active Family History: Cancer, colon (Mother Age Unknown) Social History: Social Substance History: Social History denies smoking, alcohol and drug use Smoking Status never smoker Tobacco Use denies Alcohol Use denies Drug Use denies Additional History The patient is a 68 year old female who is with 2 children. 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 No history of tobacco, alcohol, or drug abuse. (1) Performance: ECOG Performance Status: 0 Fully Active Vitals and Measurements: Vitals: Temp: 36.5 HR: 73 RR: 18 BP: 112/76 SPO2%: 99 Measurements: HT(cm): 158.1 WT(kg): 64.6 BSA: 1.68 BMI: 25.8 Physical Exam: Constitutional: Well developed, awake/alert/oriented x3, no distress, alert and cooperative Eyes: PERRL, EOMI, clear sclera ENMT: mucous membranes moist, no apparent injury, no lesions seen Head/Neck: Neck supple, no apparent injury, thyroid without mass or tenderness, No JVD, trachea midline, no bruits Respiratory/Thorax: Patent airways, CTAB, normal breath sounds with good chest expansion, thorax symmetric Cardiovascular: Regular, rate and rhythm, no murmurs, 2+ equal pulses of the extremities, normal S 1and S 2 Gastrointestinal: Nondistended, soft, non-tender, no rebound tenderness or guarding, no masses palpable, no organomegaly, +BS, no bruits Genitourinary: No Discharge, vesicles or other abnormalities Musculoskeletal: ROM intact, no joint swelling, normal strength Extremities: normal extremities, no cyanosis edema, contusions or wounds, no clubbing Neurological: alert and oriented x3, intact senses, motor, response and reflexes, normal strength Breast: No masses, tenderness, no discharge or discoloration Lymphatic: Palpable left axial lymph node. Psychological: Appropriate mood and behavior Skin: Warm and dry, no lesions, no rashes Lab Results: Assessment and Plan: 1. CLL / SLL Polyp discovered on a colonoscopy. The physical exam is pertinent for a palpable left axial lymph node; otherwise, the physical exam was within normal limits. I reviewed the lab data with the patient. CBC obtained on 05/13/2021 revealed WBC 7.1, HGB 14.0, Continue to be followed clinically. Return in 3 months. The patient has returned after hiatus of almost 3 years on December 25, 2023 regarding history of CLL/SLL. Since last evaluation the patient underwent left knee replacement in November 2021 also had URI-like symptoms and was placed on antibiotics last fall 2022. The patient has known history of CLL. In the past she had presented with left axillary lymph node. Breast exam as well as mammograms did not reveal any evidence of lumps in the breast. The patient was then lost to follow-up. She now presents with lump in the left axilla. Denied history of fevers, weight loss, night sweats, chest pain, shortness of breath, nausea, vomiting, hematemesis, melena, hematochezia and hematuria. Physical examination revealed 2 palpable lymph nodes in the left axilla. The larger 1 in the anterior axillary line measured 1 inch x 1 inch and the 1 in mid axillary line measured 1 and half centimeter by 1 and half centimeters. I had a detailed discussion with the patient explained to her that these most likely are manifestations of underlying CLL/SLL. I have recommended a mammogram as well as CT scan of chest abdomen and pelvis. Patient to return in 4 weeks. The patient and her had come for follow-up on 2023 regarding history of CLL/SLL. Mammogram/ultrasound on January 20, 2024 revealed cluster of multiple breast masses BI-RADS Category 4. Had a detailed discussion with the patient and her explained to them that this all could be manifestations of underlying CLL/SLL. However, it would be prudent to rule out underlying primary breast CA. Patient had come for follow-up on january 26, 2025 regarding history of CLL/SLL. The patient is asymptomatic. Physical examination did not reveal any lymphadenopathy. Spleen tip palpable on left upper quadrant. CBC on January 23, 2025 revealed WBC 5.6, hemoglobin 12.6 g/dL, platelets 264,000/mm . No therapeutic recommendations. The patient and her had come for follow-up on April 20, 2025 regarding history of CLL/SLL, MC T1, cN1 M0 infiltrating ductal carcinoma of left breast stage IIa, ER negative NJ positive H ER 2 positive, currently receiving Phesgo every 3 weeks cycle 16 today. Echocardiogram scheduled for May 08, 2025. 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 2. Bloating I have recommended Gas-x three times a day. 3. HTN Continue lisinopril 20 mg/hydrochlorothiazide 12.5 mg p.o. daily 4. DM Continue Metformin 500 mg p.o. 3 times daily Jardiance 25 mg p.o. daily. 5. The patient is to return in six months. documented in this encounter [facility] Work Phone: 01-30-2025 History of Present illness Narrative Patient: Marilia Guzman Date of : 1950 Chief Complaint/Active Symptoms: Marilia Guzman is a 74 y.o. female who returns today for cardiac follow-up. Doing well, is on immunotherapy for breast cancer through May of this year. Pain or discomfort. Has not felt any recent shortness of breath but still sometimes tires easily with physical activity no orthopnea PND. Leg edema has resolved. Her lites are no longer needed after her diarrhea resolved. Cancer Diagnosis: Left breast cancer, ER negative, NJ+ 30%, HER2+ Oncologist: Dr. Dima Cage, Josie Carpenter Treatment: TCHP, completed 6 cycles 07/18/24, on pertuzumab/traztuzumab through 05/2025. 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 Testing: Echo 01/30/25: EF 55-60%, strain -14.6 (?quality Echo : EF 55-60%, strain -22.9 Review of Systems Constitutional: Negative. Respiratory: Negative for cough, wheezing and stridor. Cardiovascular: Negative for chest pain, palpitations and leg swelling. Gastrointestinal: Negative for diarrhea, nausea and vomiting. Genitourinary: Negative for difficulty urinating. Musculoskeletal: Positive for arthralgias. Neurological: Negative for dizziness and light-headedness. Psychiatric/Behavioral: Negative. All other systems reviewed and are negative. Objective: Vitals: 01/30/25 1358 BP: 118/84 Pulse: 60 Vitals: 01/30/25 1358 Weight: 58.1 kg (128 lb) Allergies: Allergies[1] Medications: Current Outpatient Medications Medication Instructions anastrozole (ARIMIDEX) 1 mg, oral, Daily, Swallow whole with a drink of water. diphenoxylate-atropine (LomotiL) 2.5-0.025 mg tablet 2 tablets, oral, 4 times daily PRN empagliflozin (JARDIANCE) 25 mg, Daily furosemide (LASIX) 20 mg, oral, Daily PRN lidocaine-prilocaine (Emla) 2.5-2.5 % cream losartan 50 mg tablet 50 mg, hydroCHLOROthiazide 12.5 mg tablet 12.5 mg Daily magnesium chloride 34 mg, oral, Daily meloxicam (MOBIC) 15 mg, Daily metFORMIN (GLUCOPHAGE) 500 mg, 3 times daily potassium chloride (Klor-Con) 20 mEq packet 20 mEq, oral, Daily simvastatin (ZOCOR) 20 mg, Nightly Physical Examination: GENERAL: Well developed, well nourished, in no acute distress. HEENT: NC AT, EOMI with anicteric sclera NECK: Supple, no JVD, no bruit. CHEST: Symmetric and nontender. Port removed from right breast LUNGS: Clear to auscultation bilaterally, normal respiratory effort. HEART: PMI is not displaced. There is a regular rhythm with a normal S1 and S2 no S3. There is a midsystolic click without appreciable murmur. No edema with normal distal perfusion ABDOMEN: Soft, NT, ND without palpable organomegaly or bruits EXTREMITIES: Warm with good color, no clubbing or cyanosis. There is no edema noted. PERIPHERAL VASCULAR: Pulses present and equally palpable; 2+ throughout. MUSCULOSKELETAL: Osteoarthritic changes NEURO/PSYCH: Alert and oriented times three with approppriate behavior and responses. Nonfocal motor examination with normal gait and ambulation Skin: no rash or lesions on exposed skin or reported. Lab: CBC: Lab Results Component Value Date WBC 5.6 01/23/2025 RBC 3.91 (L) 01/23/2025 HGB 12.6 01/23/2025 HCT 37.0 01/23/2025 PLT 164 01/23/2025 CMP: Lab Results Component Value Date NA 142 01/23/2025 K 4.2 01/23/2025 CL 107 01/23/2025 CO2 24 01/23/2025 BUN 32 (H) 01/23/2025 CREATININE 0.69 01/23/2025 GLUCOSE 149 (H) 01/23/2025 CALCIUM 9.5 01/23/2025 Magnesium: Lab Results Component Value Date MG 1.91 10/03/2024 Lipid Profile: No results found for: CHLPL, TRIG, HDL, LDLCALC, LDLDIRECT TSH: No results found for: TSH BNP: Lab Results Component Value Date BNP 15 05/13/2024 PT/INR: Lab Results Component Value Date PROTIME 10.2 03/22/2024 INR 0.9 03/22/2024 HgBA1c: No results found for: HGBA1C BMP: Lab Results Component Value Date NA 142 01/23/2025 NA 143 12/13/2024 NA 142 10/03/2024 K 4.2 01/23/2025 K 4.2 12/13/2024 K 4.1 10/03/2024 CL 107 01/23/2025 CL 109 (H) 12/13/2024 CL 104 10/03/2024 CO2 24 01/23/2025 CO2 26 12/13/2024 CO2 27 10/03/2024 BUN 32 (H) 01/23/2025 BUN 27 (H) 12/13/2024 BUN 24 (H) 10/03/2024 CREATININE 0.69 01/23/2025 CREATININE 0.72 12/13/2024 CREATININE 0.87 10/03/2024 Cardiac Enzymes: Lab Results Component Value Date TROPHS 4 08/12/2024 TROPHS 4 05/13/2024 Hepatic Function Panel: Lab Results Component Value Date ALKPHOS 96 01/23/2025 ALT 40 01/23/2025 AST 37 01/23/2025 PROT 6.1 (L) 01/23/2025 PROT 6.1 (L) 01/23/2025 BILITOT 0.6 01/23/2025 Diagnostic Studies: Transthoracic Echo Complete Result Date: 03/23/2024 [facility], [address] [place] [address], [address], [place] [address] and TRANSTHORACIC ECHOCARDIOGRAM REPORT Patient Name: MARILIA GUZMAN Reading Physician: [id number] Linus Shelby MD Study Date: 03/23/2024 Ordering Provider: [id number] DIMA CAGE MRN/PID: [id number] Fellow: Nurse: Date of /Age: 9 1950 / 73 years Research Lab Assistant: Lina Andrew RDCS Gender: F Additional Staff: Height: 157.48 cm Admit Date: Weight: 59.87 kg Admission Status: Outpatient BSA / BMI: 1.60 m2 / 24.14 kg/m2 Blood Pressure: 121/81 mmHg Department Location: [facility] Study Type: TRANSTHORACIC ECHO (TTE) COMPLETE Diagnosis/ICD: Encounter for antineoplastic chemotherapy-Z51.11 Indication: Pre chemotherapy echo CPT Code: Echo Complete w Full Doppler-[id number] Patient History: Pertinent History: Breast CA. Study Detail: The following Echo studies were performed: 2D, M-Mode, Doppler and color flow. PHYSICIAN INTERPRETATION: Left Ventricle: The left ventricular systolic function is normal, with a visually estimated ejection fraction of 60-65%. There are no regional wall motion abnormalities. The left ventricular cavity size is normal. Spectral Doppler shows an impaired relaxation pattern of left ventricular diastolic filling. Left Atrium: The left atrium is upper limits of normal in size. Right Ventricle: The right ventricle is normal in size. There is normal right ventricular global systolic function. Right Atrium: The right atrium is normal in size. Aortic Valve: The aortic valve is trileaflet. There is no evidence of aortic valve regurgitation. The peak instantaneous gradient of the aortic valve is 11.0 mmHg. Mitral Valve: The mitral valve is mildly thickened. There is moderate mitral valve prolapse of the anterior and posterior leaflets. There is mild mitral valve regurgitation. Mitral annular dysjunction is present. Tricuspid Valve: The tricuspid valve is structurally normal. There is trace tricuspid regurgitation. The Doppler estimated RVSP is within normal limits at 26.1 mmHg. Pulmonic Valve: The pulmonic valve is structurally normal. There is physiologic pulmonic valve regurgitation. Pericardium: There is a trivial pericardial effusion. Aorta: The aortic root is normal. There is no dilatation of the aortic root. CONCLUSIONS: 1. The left ventricular systolic function is normal, with a visually estimated ejection fraction of 60-65%. 2. Spectral Doppler shows an impaired relaxation pattern of left ventricular diastolic filling. 3. There is normal right ventricular global systolic function. 4. There is moderate mitral valve prolapse. 5. There is mild mitral valve regurgitation. 6. RVSP within normal limits. QUANTITATIVE DATA SUMMARY: 2D MEASUREMENTS: Normal Ranges: LAs: 3.61 cm (2.7-4.0cm) IVSd: 0.60 cm (0.6-1.1cm) LVPWd: 0.95 cm (0.6-1.1cm) LVIDd: 4.09 cm (3.9-5.9cm) LVIDs: 3.12 cm LV Mass Index: 57.7 g/m2 LV % FS 23.7 % LA VOLUME: Normal Ranges: LA Vol A4C: 43.1 ml (22+/-6mL/m2) LA Vol A2C: 56.8 ml LA Vol Index A4C: 26.9 ml/m2 LA Vol Index A2C: 35.4 ml/m2 LA Area A4C: 17.0 cm2 LA Major [place] A4C: 5.7 cm LA Vol A4C: 39.9 ml LA Vol A2C: 53.3 ml RA VOLUME BY A/L METHOD: Normal Ranges: RA Vol A4C: 22.4 ml (8.3-19.5ml) RA Vol Index A4C: 14.0 ml/m2 RA Area A4C: 11.0 cm2 RA Major [place] A4C: 4.6 cm M-MODE MEASUREMENTS: Normal Ranges: Ao Root: 3.20 cm (2.0-3.7cm) LAs: 3.60 cm (2.7-4.0cm) AORTA MEASUREMENTS: Normal Ranges: Asc Ao, d: 3.10 cm (2.1-3.4cm) Ao Arch: 2.70 cm (2.0-3.6cm) LV SYSTOLIC FUNCTION BY 2D PLANIMETRY (MOD): Normal Ranges: EF-A4C View: 60 % (>=55%) EF-A2C View: 68 % EF-Biplane: 65 % EF-Visual: 63 % LV EF Reported: 63 % LV DIASTOLIC FUNCTION: Normal Ranges: MV Peak E: 0.67 m/s (0.7-1.2 m/s) MV Peak A: 0.87 m/s (0.42-0.7 m/s) E/A Ratio: 0.77 (1.0-2.2) MV e' 0.088 m/s (>8.0) MV lateral e' 0.11 m/s MV medial e' 0.06 m/s MV A Dur: 137.01 msec E/e' Ratio: 7.65 (<8.0) PulmV Sys Nilson: 49.67 cm/s PulmV Garcia Nilson: 32.05 cm/s PulmV S/D Nilson: 1.55 PulmV A Revs Nilson: 24.34 cm/s PulmV A Revs Dur: 137.01 msec MITRAL VALVE: Normal Ranges: MV DT: 263 msec (150-240msec) AORTIC VALVE: Normal Ranges: AoV Vmax: 1.66 m/s (<=1.7m/s) AoV Peak P.0 mmHg (<20mmHg) LVOT Max Nilson: 1.32 m/s (<=1.1m/s) LVOT VTI: 28.79 cm LVOT Diameter: 2.11 cm (1.8-2.4cm) AoV Area,Vmax: 2.79 cm2 (2.5-4.5cm2) AORTIC INSUFFICIENCY: AI Vmax: 3.69 m/s AI Half-time: 722 msec AI Decel Time: 2490 msec AI Decel Rate: 149.16 cm/s2 RIGHT VENTRICLE: RV Basal 2.70 cm RV Mid 2.00 cm RV Major 5.8 cm TAPSE: 17.0 mm RV s' 0.10 m/s TRICUSPID VALVE/RVSP: Normal Ranges: Peak TR Velocity: 2.40 m/s RV Syst Pressure: 26.1 mmHg (< 30mmHg) IVC Diam: 2.00 cm PULMONIC VALVE: Normal Ranges: PV Accel Time: 104 msec (>120ms) PV Max Nilson: 0.8 m/s (0.6-0.9m/s) PV Max P.4 mmHg Pulmonary Veins: PulmV A Revs Dur: 137.01 msec PulmV A Revs Nilson: 24.34 cm/s PulmV Garcia Nilson: 32.05 cm/s PulmV S/D Nilson: 1.55 PulmV Sys Nilson: 49.67 cm/s [id number] Linus Shelby MD Electronically signed on 03/23/2024 at 6:06:22 PM Final Imaging reviewed Radiology: No orders to display ASSESSMENT Problem List Items Addressed This Visit CLL (chronic lymphocytic leukemia) (Multi) Malignant neoplasm of upper-inner quadrant of left breast in female, estrogen receptor negative - Primary Relevant Orders Onco-Echo Limited (Strain And 3D) B-Type Natriuretic Peptide Troponin I, High Sensitivity Encounter for monitoring cardiotoxic drug therapy Relevant Orders Onco-Echo Limited (Strain And 3D) B-Type Natriuretic Peptide Troponin I, High Sensitivity Essential hypertension, benign Mitral valve prolapse Hypertension Other Visit Diagnoses Shortness of breath Relevant Orders B-Type Natriuretic Peptide PLAN 1. HER2 positive left breast cancer ER negative. Encounter for monitoring cardiotoxic drug therapy. Mild shortness of breath /fatigue. Patient is stable with just some mild exercise intolerance. She is busy and active and is able to do most of her activities without difficulty. She is heading into the final stretches and she will be completed with her immunotherapy in May of this year. Her most recent echocardiogram shows no change in her EF but a mild change or decrease in her strain. There is no mention in the echo report about the quality of the strain imaging. Will repeat her echocardiogram in 3 months and then a final echocardiogram after her final and washout. We reviewed contacting us if she develops any worsening shortness of breath. We have requested a troponin and BN peptide with her next treatment. 2. History of hypertension. Blood pressures have been a little bit less. She has been taking her blood pressure medication every other day rather than daily. If this persists we may just decrease the dose so that she can take them on a daily basis. 3. Mitral valve prolapse. Again identified on her echocardiogram. 4. CLL. Still just in the follow-up stage. Will see her back after her limited echo in 3 months sooner if there is any problems or concerns. [1] Allergies Allergen Reactions Aluminum Rash Rash under arms Levofloxacin Myalgia Frozen elbow Nickel Dermatitis Allergy to nickel and aluminium documented in this encounter [facility] Work Phone: 12-13-2024 Nurse Note Home going instructions specific to procedure given. Easily arousable; responding appropriately. Vs +/- 20% of pre procedure status. Significant complications are absent. Ambulates without dizziness/age appropriate activity, pulse ox above or equal to 92% on room air/ordered oxygen treatment. Discharge to home accompanied by (family). Discharged via wheelchair. [facility] 12-13-2024 Nurse Note Home going instructions specific to procedure given. Easily arousable; responding appropriately. Vs +/- 20% of pre procedure status. Significant complications are absent. Ambulates without dizziness/age appropriate activity, pulse ox above or equal to 92% on room air/ordered oxygen treatment. Discharge to home accompanied by (family). Discharged via wheelchair. documented in this encounter [facility] Work Phone: 12-13-2024 Hospital Discharge instructions John Aguirre APRN-OUTSIDE INDUSTRIAL SALES REPRESENTATIVE, DNP - 12/13/2024 2:48 PM EDT Central Venous Catheter Removal- Patient and Family Education A trained health care provider, as ordered by your doctor has removed your Central Venous Catheter. The following instructions will provide a guideline to decrease the risk of complications while caring for your removal site as it heals. Central Venous Catheter Removed: _XX Port Pheresis Catheter Dialysis Catheter Tunneled Central Catheter PICC Line Activity: ? No exercising, lifting heavy objects, or strenuous activities for the next seven days. Pain Management: ? Expect some minor discomfort at the surgical site for the next few days. ? You may use ijaq-crt-[id number] medications such as Acetaminophen (Tylenol) or Ibuprofen (Advil or Motrin) for minor discomfort, unless restricted for some other reasons. Care of your incision after device removal: ? Keep dressing dry for 2 days ? If you have sterile paper strips over the incision allow them to fall off on their own. ? You may shower 48 hours after the dressing is removed but do not soak the incision for 2 weeks (no swimming, bathing or hot tubs until completely healed). Medications: ? Resume taking all your previous medications. ? If you are taking blood-thinning medication, please follow special instructions by your doctor. Call your Doctor right away, if you have any of these signs: ? Fever higher than a temperature of 101.5 F or chills. ? Swelling or severe pain on the side the catheter was removed. ? Increased bleeding, redness or drainage at or around the removal site. How to Reach your Doctor: Call [phone] with problems or questions. This info is a general resource. It is not meant to replace your health care provider s advice. Ask your doctor or health care team any questions. Always follow their instructions. documented in this encounter [facility] Work Phone: 12-13-2024 Miscellaneous Notes Interventional Radiology Brief Postprocedure Note Attending: Derick Georges MD Interactive Media Marketing Strategist: none Diagnosis: port no longer needed Description of procedure: Successful removal of the right chest port. Anesthesia: moderate sedation Complications: None Estimated Blood Loss: minimal Medications (Filter: Administrations occurring from 1623 to 1623 on 12/13/24) As of 12/13/241622 None No specimens collected See detailed result report with images in PACS. The patient tolerated the procedure well without incident or complication and is in stable condition. documented in this encounter [facility] Work Phone: 12-13-2024 Surgery Postoperative evaluation and management note Interventional Radiology Brief Postprocedure Note Attending: Derick Georges MD Interactive Media Marketing Strategist: none Diagnosis: port no longer needed Description of procedure: Successful removal of the right chest port. Anesthesia: moderate sedation Complications: None Estimated Blood Loss: minimal Medications (Filter: Administrations occurring from 1623 to 1623 on 12/13/24) As of 12/13/24 162 None No specimens collected See detailed result report with images in PACS. The patient tolerated the procedure well without incident or complication and is in stable condition. [facility] Work Phone: 12-13-2024 History and physical note History Of Present Illness Marilia Guzman is a 74 y.o. female presenting with hx left breast CA, here for mediport removal. PMH includes CLL, left breast CA, HLD, DMII, moderate mitral valve prolapse, HTN. Past Medical History: Past Medical History: Diagnosis Date Acute maxillary sinusitis 09/23/2024 Anemia 07/25/24 HGB 9.6 HCT 28.2 Arthritis Axillary lymphadenopathy CLL (chronic lymphocytic leukemia) (Multi) found in colon polyp - no hx active treatment Delayed emergence from general anesthesia Diverticulitis 09/23/2024 Diverticulosis 09/23/2024 Dizziness 09/23/2024 Folliculitis 09/23/2024 Generalized weakness 07/26/2024 GERD (gastroesophageal reflux disease) occasional symptoms History of total knee replacement 12/23/2021 Hyperlipidemia Hypertension low BP since chemo Knee pain 09/23/2024 Low blood magnesium 07/26/2024 Lymphoma 09/23/2024 Malignant neoplasm of upper-inner quadrant of left breast in female, estrogen receptor negative Plan: Left Breast Magseed Localized Partial Bracket Mastectomy; [place] Lymph Node Injection; Axillary Magseed Localized [place] Lymph Node Biopsy with Frozen Section; Possible Complete Axillary Lymph Node Dissection 08/24/24 Mitral valve prolapse Osteoarthritis 06/24/2021 Otitis media 09/23/2024 Staphylococcus infection 09/23/2024 Type 2 diabetes mellitus Urinary tract infection 09/23/2024 Past Surgical History: Past Surgical History: Procedure Laterality Date SECTION, LOW TRANSVERSE CHOLECYSTECTOMY COLONOSCOPY 2016 COLONOSCOPY SNARE EXCISION & biopsy 04/14/2011 colonoscopy in August 2016 HYSTERECTOMY OOPHORECTOMY Social History: Social History Tobacco Use Smoking status: Never Smokeless tobacco: Never Vaping Use Vaping status: Never Used Substance Use Topics Alcohol use: Yes Comment: occasional drink Drug use: Never Family History: Family History Problem Relation Name Age of Onset Cancer Mother Kimmy Wang 57 Diabetes type II Father Nj Wang Heart attack Father Nj Wang 80 No Known Problems Sister No Known Problems Brother Allergies: Allergies Allergen Reactions Aluminum Rash Rash under arms Levofloxacin Myalgia Frozen elbow Nickel Dermatitis Allergy to nickel and aluminium Home Medications: Current Outpatient Medications Medication Instructions anastrozole (ARIMIDEX) 1 mg, oral, Daily, Swallow whole with a drink of water. empagliflozin (JARDIANCE) 25 mg, Daily furosemide (LASIX) 20 mg, oral, Daily PRN lidocaine-prilocaine (Emla) 2.5-2.5 % cream Apply topically 1 time if needed for mild pain (1 - 3) (30-60 minutes prior to blood draw from port) for up to 1 dose. losartan 50 mg tablet 50 mg, hydroCHLOROthiazide 12.5 mg tablet 12.5 mg Daily magnesium chloride 34 mg, oral, Daily meloxicam (MOBIC) 15 mg, Daily metFORMIN (GLUCOPHAGE) 500 mg, 3 times daily potassium chloride (Klor-Con) 20 mEq packet 20 mEq, oral, Daily simvastatin (ZOCOR) 20 mg, Nightly Inpatient Medications: Review of Systems Constitutional: Negative. HENT: Negative. Eyes: Negative. Respiratory: Negative. Cardiovascular: Negative. Gastrointestinal: Positive for diarrhea (since last night). Endocrine: Negative. Genitourinary: Negative. Musculoskeletal: Negative. Skin: Negative. Allergic/Immunologic: Negative. Neurological: Negative. Hematological: Negative. Psychiatric/Behavioral: Negative. Physical Exam Constitutional: General: She is awake. She is not in acute distress. Appearance: She is not ill-appearing. Cardiovascular: Rate and Rhythm: Normal rate and regular rhythm. Pulses: Normal pulses. Radial pulses are 2+ on the right side and 2+ on the left side. Dorsalis pedis pulses are 2+ on the right side and 2+ on the left side. Heart sounds: Normal heart sounds. No murmur heard. Pulmonary: Effort: Pulmonary effort is normal. Breath sounds: Normal breath sounds and air entry. Abdominal: General: Bowel sounds are normal. Palpations: Abdomen is soft. Tenderness: There is no abdominal tenderness. Musculoskeletal: Right lower leg: No edema. Left lower leg: No edema. Skin: General: Skin is warm and dry. Neurological: General: No focal deficit present. Mental Status: She is alert and oriented to person, place, and time. GCS: GCS eye subscore is 4. GCS verbal subscore is 5. GCS motor subscore is 6. Psychiatric: Mood and Affect: Mood normal. Behavior: Behavior is cooperative. Sedation Plan ASA 3 Mallampati class: III. NPO since last night around 2229 Last Recorded Vitals Blood pressure 137/81, pulse 70, temperature 36.5 C (97.7 F), temperature source Oral, resp. rate 12, weight 55 kg (121 lb 4.1 oz), SpO2 100%. Vitals from the Past 24 Hours Heart Rate: [70] Temp: [36.5 C (97.7 F)] Resp: [12] BP: (137)/(81) Weight: [55 kg (121 lb 4.1 oz)] SpO2: [100 %] Relevant Results Labs CBC: Recent Labs 11/21/24 1300 10/31/24 1143 10/03/24 1115 08/12/24 1400 07/25/24 0910 07/15/24 1537 WBC 6.2 7.5 7.6 9.4 7.8 17.1* HGB 12.6 12.7 12.7 10.4* 9.6* 10.1* HCT 37.1 37.8 37.8 31.3* 28.2* 29.6* PLT 184 174 173 286 130* 162 MCV 92 94 97 106* 103* 103* BMP/CMP: Recent Labs 10/03/24 1115 08/12/24 1400 07/25/24 0910 07/15/24 1537 06/24/24 1015 06/14/24 1326 06/03/24 1354 NA 142 139 139 138 140 137 139 K 4.1 3.3* 3.0* 3.5 3.9 3.8 3.5 CL 104 105 102 102 109* 103 103 BUN 24* 22 11 20 19 8 27* CREATININE 0.87 0.83 0.79 0.77 0.57 0.76 0.57 CO2 27 25 24 26 23 23 26 CALCIUM 10.0 8.5* 8.5* 8.5* 9.1 9.5 8.9 PROT 6.6 -- 5.5* 5.2* 5.1* 6.1* 5.6* BILITOT 0.6 -- 0.6 0.9 0.8 0.5 0.7 ALKPHOS 94 -- 111 99 103 135 98 ALT 13 -- 13 12 14 16 15 AST 18 -- 21 17 17 19 17 GLUCOSE 112* 140* 106* 187* 90 125* 154* Magnesium: Recent Labs 10/03/24 1115 08/12/24 1400 MG 1.91 1.55* Lipid Panel: No results for input(s): CHOL, HDL, CHHDL, LDL, VLDL, TRIG, NHDL in the last 04911 hours. Cardiac No lab exists for component: CK, CKMBP Hemoglobin A1C: No results for input(s): HGBA1C in the last 34303 hours. TSH/ Free T4: No results for input(s): TSH, FREET4 in the last 55845 hours. Iron: Recent Labs 05/13/24 1104 BNP 15 Coag: ABO: No results found for: ABO Past Cardiology Tests (Last 3 Years): EKG: No results for input(s): ATRRATE, VENTRATE, PRINT, QRSDUR, QTCFRED, QTCCALCB in the last 80480 hours.No results found for this or any previous visit (from the past 4464 hours). Echo: Echocardiogram: Transthoracic Echo (TTE) Complete 03/23/2024 PHYSICIAN INTERPRETATION: Left Ventricle: The left ventricular systolic function is normal, with a visually estimated ejection fraction of 60-65%. There are no regional wall motion abnormalities. The left ventricular cavity size is normal. Spectral Doppler shows an impaired relaxation pattern of left ventricular diastolic filling. Left Atrium: The left atrium is upper limits of normal in size. Right Ventricle: The right ventricle is normal in size. There is normal right ventricular global systolic function. Right Atrium: The right atrium is normal in size. Aortic Valve: The aortic valve is trileaflet. There is no evidence of aortic valve regurgitation. The peak instantaneous gradient of the aortic valve is 11.0 mmHg. Mitral Valve: The mitral valve is mildly thickened. There is moderate mitral valve prolapse of the anterior and posterior leaflets. There is mild mitral valve regurgitation. Mitral annular dysjunction is present. Tricuspid Valve: The tricuspid valve is structurally normal. There is trace tricuspid regurgitation. The Doppler estimated RVSP is within normal limits at 26.1 mmHg. Pulmonic Valve: The pulmonic valve is structurally normal. There is physiologic pulmonic valve regurgitation. Pericardium: There is a trivial pericardial effusion. Aorta: The aortic root is normal. There is no dilatation of the aortic root. CONCLUSIONS: 1. The left ventricular systolic function is normal, with a visually estimated ejection fraction of 60-65%. 2. Spectral Doppler shows an impaired relaxation pattern of left ventricular diastolic filling. 3. There is normal right ventricular global systolic function. 4. There is moderate mitral valve prolapse. 5. There is mild mitral valve regurgitation. 6. RVSP within normal limits. Ejection Fractions: LV EF Date/Time Value Ref Range Status 08/05/2024 10:29 AM 58 % 03/23/2024 10:57 AM 63 % Cath: Coronary Angiography: No results found for this or any previous visit from the past 1800 days. Right Heart Cath: No results found for this or any previous visit from the past 1800 days. Stress Test: Nuclear:No results found for this or any previous visit from the past 1800 days. Metabolic Stress: No results found for this or any previous visit from the past 1800 days. Cardiac Imaging: Cardiac Scoring: No results found for this or any previous visit from the past 1800 days. Cardiac MRI: No results found for this or any previous visit from the past 1800 days. Assessment/Plan Assessment/Plan Assessment & Plan Malignant neoplasm of upper-inner quadrant of left breast in female, estrogen receptor negative hx left breast CA -planned mediport removal with Dr. Georges on 12/13/24 Diarrhea -check bmp, prior to procedure -ok to proceed if electrolytes are acceptable TROUBLE LINEMAN discussed with Dr. Georges regarding plan of care/ discharge plan I spent 30 minutes in the professional and overall care of this patient. SCOTTIE Cheema, MELISSA [facility] Work Phone: 12-13-2024 History and physical note History Of Present Illness Marilia Guzman is a 74 y.o. female presenting with hx left breast CA, here for mediport removal. PMH includes CLL, left breast CA, HLD, DMII, moderate mitral valve prolapse, HTN. Past Medical History: Past Medical History: Diagnosis Date Acute maxillary sinusitis 09/23/2024 Anemia 07/25/24 HGB 9.6 HCT 28.2 Arthritis Axillary lymphadenopathy CLL (chronic lymphocytic leukemia) (Multi) found in colon polyp - no hx active treatment Delayed emergence from general anesthesia Diverticulitis 09/23/2024 Diverticulosis 09/23/2024 Dizziness 09/23/2024 Folliculitis 09/23/2024 Generalized weakness 07/26/2024 GERD (gastroesophageal reflux disease) occasional symptoms History of total knee replacement 12/23/2021 Hyperlipidemia Hypertension low BP since chemo Knee pain 09/23/2024 Low blood magnesium 07/26/2024 Lymphoma 09/23/2024 Malignant neoplasm of upper-inner quadrant of left breast in female, estrogen receptor negative Plan: Left Breast Magseed Localized Partial Bracket Mastectomy; [place] Lymph Node Injection; Axillary Magseed Localized [place] Lymph Node Biopsy with Frozen Section; Possible Complete Axillary Lymph Node Dissection 08/24/24 Mitral valve prolapse Osteoarthritis 06/24/2021 Otitis media 09/23/2024 Staphylococcus infection 09/23/2024 Type 2 diabetes mellitus Urinary tract infection 09/23/2024 Past Surgical History: Past Surgical History: Procedure Laterality Date SECTION, LOW TRANSVERSE CHOLECYSTECTOMY COLONOSCOPY 2015 COLONOSCOPY SNARE EXCISION & biopsy 04/14/2011 colonoscopy in August 2016 HYSTERECTOMY OOPHORECTOMY Social History: Social History Tobacco Use Smoking status: Never Smokeless tobacco: Never Vaping Use Vaping status: Never Used Substance Use Topics Alcohol use: Yes Comment: occasional drink Drug use: Never Family History: Family History Problem Relation Name Age of Onset Cancer Mother Kimmy Wang 57 Diabetes type II Father Nj Wang Heart attack Father Nj Wang 80 No Known Problems Sister No Known Problems Brother Allergies: Allergies Allergen Reactions Aluminum Rash Rash under arms Levofloxacin Myalgia Frozen elbow Nickel Dermatitis Allergy to nickel and aluminium Home Medications: Current Outpatient Medications Medication Instructions anastrozole (ARIMIDEX) 1 mg, oral, Daily, Swallow whole with a drink of water. empagliflozin (JARDIANCE) 25 mg, Daily furosemide (LASIX) 20 mg, oral, Daily PRN lidocaine-prilocaine (Emla) 2.5-2.5 % cream Apply topically 1 time if needed for mild pain (1 - 3) (30-60 minutes prior to blood draw from port) for up to 1 dose. losartan 50 mg tablet 50 mg, hydroCHLOROthiazide 12.5 mg tablet 12.5 mg Daily magnesium chloride 34 mg, oral, Daily meloxicam (MOBIC) 15 mg, Daily metFORMIN (GLUCOPHAGE) 500 mg, 3 times daily potassium chloride (Klor-Con) 20 mEq packet 20 mEq, oral, Daily simvastatin (ZOCOR) 20 mg, Nightly Inpatient Medications: Review of Systems Constitutional: Negative. HENT: Negative. Eyes: Negative. Respiratory: Negative. Cardiovascular: Negative. Gastrointestinal: Positive for diarrhea (since last night). Endocrine: Negative. Genitourinary: Negative. Musculoskeletal: Negative. Skin: Negative. Allergic/Immunologic: Negative. Neurological: Negative. Hematological: Negative. Psychiatric/Behavioral: Negative. Physical Exam Constitutional: General: She is awake. She is not in acute distress. Appearance: She is not ill-appearing. Cardiovascular: Rate and Rhythm: Normal rate and regular rhythm. Pulses: Normal pulses. Radial pulses are 2+ on the right side and 2+ on the left side. Dorsalis pedis pulses are 2+ on the right side and 2+ on the left side. Heart sounds: Normal heart sounds. No murmur heard. Pulmonary: Effort: Pulmonary effort is normal. Breath sounds: Normal breath sounds and air entry. Abdominal: General: Bowel sounds are normal. Palpations: Abdomen is soft. Tenderness: There is no abdominal tenderness. Musculoskeletal: Right lower leg: No edema. Left lower leg: No edema. Skin: General: Skin is warm and dry. Neurological: General: No focal deficit present. Mental Status: She is alert and oriented to person, place, and time. GCS: GCS eye subscore is 4. GCS verbal subscore is 5. GCS motor subscore is 6. Psychiatric: Mood and Affect: Mood normal. Behavior: Behavior is cooperative. Sedation Plan ASA 3 Mallampati class: III. NPO since last night around 2230 Last Recorded Vitals Blood pressure 137/81, pulse 70, temperature 36.5 C (97.7 F), temperature source Oral, resp. rate 12, weight 55 kg (121 lb 4.1 oz), SpO2 100%. Vitals from the Past 24 Hours Heart Rate: [70] Temp: [36.5 C (97.7 F)] Resp: [12] BP: (137)/(81) Weight: [55 kg (121 lb 4.1 oz)] SpO2: [100 %] Relevant Results Labs CBC: Recent Labs 11/21/24 1300 10/31/24 1143 10/03/24 1115 08/12/24 1400 07/25/24 0910 07/15/24 1537 WBC 6.2 7.5 7.6 9.4 7.8 17.1* HGB 12.6 12.7 12.7 10.4* 9.6* 10.1* HCT 37.1 37.8 37.8 31.3* 28.2* 29.6* PLT 184 174 173 286 130* 162 MCV 92 94 97 106* 103* 103* BMP/CMP: Recent Labs 10/03/24 1115 08/12/24 1400 07/25/24 0910 07/15/24 1537 06/24/24 1015 06/14/24 1326 06/03/24 1354 NA 142 139 139 138 140 137 139 K 4.1 3.3* 3.0* 3.5 3.9 3.8 3.5 CL 104 105 102 102 109* 103 103 BUN 24* 22 11 20 19 8 27* CREATININE 0.87 0.83 0.79 0.77 0.57 0.76 0.57 CO2 27 25 24 26 23 23 26 CALCIUM 10.0 8.5* 8.5* 8.5* 9.1 9.5 8.9 PROT 6.6 -- 5.5* 5.2* 5.1* 6.1* 5.6* BILITOT 0.6 -- 0.6 0.9 0.8 0.5 0.7 ALKPHOS 94 -- 111 99 103 135 98 ALT 13 -- 13 12 14 16 15 AST 18 -- 21 17 17 19 17 GLUCOSE 112* 140* 106* 187* 90 125* 154* Magnesium: Recent Labs 10/03/24 1115 08/12/24 1400 MG 1.91 1.55* Lipid Panel: No results for input(s): CHOL, HDL, CHHDL, LDL, VLDL, TRIG, NHDL in the last 33538 hours. Cardiac No lab exists for component: CK, CKMBP Hemoglobin A1C: No results for input(s): HGBA1C in the last 83559 hours. TSH/ Free T4: No results for input(s): TSH, FREET4 in the last 21784 hours. Iron: Recent Labs 05/13/24 1104 BNP 15 Coag: ABO: No results found for: ABO Past Cardiology Tests (Last 3 Years): EKG: No results for input(s): ATRRATE, VENTRATE, PRINT, QRSDUR, QTCFRED, QTCCALCB in the last 92489 hours.No results found for this or any previous visit (from the past 4464 hours). Echo: Echocardiogram: Transthoracic Echo (TTE) Complete 03/23/2024 PHYSICIAN INTERPRETATION: Left Ventricle: The left ventricular systolic function is normal, with a visually estimated ejection fraction of 60-65%. There are no regional wall motion abnormalities. The left ventricular cavity size is normal. Spectral Doppler shows an impaired relaxation pattern of left ventricular diastolic filling. Left Atrium: The left atrium is upper limits of normal in size. Right Ventricle: The right ventricle is normal in size. There is normal right ventricular global systolic function. Right Atrium: The right atrium is normal in size. Aortic Valve: The aortic valve is trileaflet. There is no evidence of aortic valve regurgitation. The peak instantaneous gradient of the aortic valve is 11.0 mmHg. Mitral Valve: The mitral valve is mildly thickened. There is moderate mitral valve prolapse of the anterior and posterior leaflets. There is mild mitral valve regurgitation. Mitral annular dysjunction is present. Tricuspid Valve: The tricuspid valve is structurally normal. There is trace tricuspid regurgitation. The Doppler estimated RVSP is within normal limits at 26.1 mmHg. Pulmonic Valve: The pulmonic valve is structurally normal. There is physiologic pulmonic valve regurgitation. Pericardium: There is a trivial pericardial effusion. Aorta: The aortic root is normal. There is no dilatation of the aortic root. CONCLUSIONS: 1. The left ventricular systolic function is normal, with a visually estimated ejection fraction of 60-65%. 2. Spectral Doppler shows an impaired relaxation pattern of left ventricular diastolic filling. 3. There is normal right ventricular global systolic function. 4. There is moderate mitral valve prolapse. 5. There is mild mitral valve regurgitation. 6. RVSP within normal limits. Ejection Fractions: LV EF Date/Time Value Ref Range Status 08/05/2024 10:29 AM 58 % 03/23/2024 10:57 AM 63 % Cath: Coronary Angiography: No results found for this or any previous visit from the past 1800 days. Right Heart Cath: No results found for this or any previous visit from the past 1800 days. Stress Test: Nuclear:No results found for this or any previous visit from the past 1800 days. Metabolic Stress: No results found for this or any previous visit from the past 1800 days. Cardiac Imaging: Cardiac Scoring: No results found for this or any previous visit from the past 1800 days. Cardiac MRI: No results found for this or any previous visit from the past 1800 days. Assessment/Plan Assessment/Plan Assessment & Plan Malignant neoplasm of upper-inner quadrant of left breast in female, estrogen receptor negative hx left breast CA -planned mediport removal with Dr. Georges on 12/13/24 Diarrhea -check bmp, prior to procedure -ok to proceed if electrolytes are acceptable TROUBLE LINEMAN discussed with Dr. Georges regarding plan of care/ discharge plan I spent 30 minutes in the professional and overall care of this patient. SCOTTIE Cheema DNP documented in this encounter [facility] Work Phone: 11-21-2024 History of Present illness Narrative Images from the original note were not included. Breast Medical Oncology Clinic Location: [facility] Visit Type: Follow-up Visit Oncologic History: 01/08/2024: Screening Mammogram: New grouped irregular masses in the deep central superior left breast. There is an enlarged dense left axillary lymph nodes. No findings in the right breast. 01/08/2024: CT chest abdomen pelvis obtained for monitoring of CLL/SLL. There are scattered groundglass micronodularity's of the bilateral lung bases unchanged since 2016. Enlarged left axillary lymph nodes new compared to August 2016. Stable subcentimeter lesion of the liver with no new worrisome hepatic lesions. 01/20/2024: Left breast ultrasound shows multiple hypoechoic masses 12:00 15 cm from the nipple correlating with the mammogram findings. 02/08/2024: Left breast 11:00 10 cm from the nipple biopsy shows invasive ductal carcinoma grade 3, ER negative, NJ positive (30%) and HER2 positive. Left breast 12:00 10 cm from the nipple biopsy shows invasive ductal carcinoma grade 3, ER negative, NJ positive (5 to 10%) HER2 positive. Axillary lymph node biopsy shows metastatic carcinoma with mucin production. 03/22/2024: Bone scan: Foci of increased radiotracer uptake in the frontal bone of the calvarium. 04/04/2024: Initiated neoadjuvant TCHP 04/15/2024: CT head shows no intracranial pathology or evidence of calvarial pathology. 07/18/24: C6 of neoTCHP 08/24/2024: L PM/SLNBx: No residual carcinoma pathologic complete response ypT0 ypN0 10/27/2024-11/17/2024: Completed radiation 10/31/2024: Resumed phesgo Subjective: Interval History Presents today for follow-up visit. Radiation went well. Developed some radiation skin changes for which she is taking tylenol per instruction of rad/onc team. Feeling well otherwise. Tolerated first phesgo injection well. Eager to get port out. Gynecologic History: Age of first menses: 17 years old Age of last menses: 51 years old ; FLB at age 24 Post-menopausal She did breastfeed 4-6 weeks Uterus/Ovaries: S/p TAHBSO- fibroid tumors and ovarian cysts OCP: 3 years HRT: No Pertinent Family history: Breast Cancer: None Ovarian Cancer: None Pancreatic Cancer: None Other: Mother- cecal cancer Social History Marilia Arango [place] reports that she has never smoked. She has never used smokeless tobacco. She reports current alcohol use. She reports no history of drug use. ROS: Review of Systems All other systems reviewed and are negative. Physical Examination: BP 134/78 Pulse 78 Temp 35.1 C (95.2 F) Resp 16 Wt 57.8 kg (127 lb 6.8 oz) SpO2 98% BMI 22.94 kg/m Physical Exam Vitals and nursing note reviewed. Constitutional: General: She is not in acute distress. Appearance: Normal appearance. She is not toxic-appearing. HENT: Head: Normocephalic and atraumatic. Eyes: Conjunctiva/sclera: Conjunctivae normal. Cardiovascular: Rate and Rhythm: Normal rate. Pulmonary: Effort: Pulmonary effort is normal. No respiratory distress. Musculoskeletal: Cervical back: Normal range of motion. Skin: General: Skin is warm and dry. Neurological: Mental Status: She is alert. Psychiatric: Mood and Affect: Mood normal. Breast Examination: . L breast with radiation erythema and some dependent edema ECOG Performance Status: [x] 0 Fully active, able to carry on all pre-disease performance without restriction [] 1 Restricted in physically strenuous activity but ambulatory and able to carry out work of a light or sedentary nature, e.g., light house work, office work [] 2 Ambulatory and capable of all selfcare but unable to carry out any work activities; up and about more than 50% of waking hours [] 3 Capable of only limited selfcare; confined to bed or chair more than 50% of waking hours [] 4 Completely disabled; cannot carry on any selfcare; totally confined to bed or chair [] 5 Results: Labs: Reviewed Lab Results Component Value Date WBC 7.5 10/31/2024 HGB 12.7 10/31/2024 HCT 37.8 10/31/2024 MCV 94 10/31/2024 PLT 174 10/31/2024 Chemistry Lab Results Component Value Date/Time NA 142 10/03/2024 1115 K 4.1 10/03/2024 1115 CL 104 10/03/2024 1115 CO2 27 10/03/2024 1115 BUN 24 (H) 10/03/2024 1115 CREATININE 0.87 10/03/2024 1115 Lab Results Component Value Date/Time CALCIUM 10.0 10/03/2024 1115 ALKPHOS 94 10/03/2024 1115 AST 18 10/03/2024 1115 ALT 13 10/03/2024 1115 BILITOT 0.6 10/03/2024 1115 Imaging: Reviewed above in Onc History Pathology: Reviewed above in Onc History Assessment: At least Clinical prognostic stage IIA (mcT1 cN1 cM0) infiltrating ductal carcinoma of the left breast; Dx in 01/2024 ; Grade 3; ER negative, NJ positive (30%), HER2 positive; Completed 6 cycles of neoadjuvant TCHP; S/p L PM/SLNBx, ypT0 ypN0; S/p radiation Marilia Guzman is a very pleasant 74 y.o. postmenopausal female with newly diagnosed breast cancer with history of CLL managed expectantly. On maintenance phesgo. Will start anastrozole 2 weeks after radiation. Plan: Surgical Plan: S/p L PM/SLNBx Additional biopsy: No further biopsy indicated Radiation Plan: Completed Additional staging scans/DEXA/echo: Baseline staging scans reviewed. She will require echocardiogram every 3 months while receiving HER2 directed therapy. She is established with oncocardiology Additional Path info (i.e Ki67, PDL1): Not indicated Gene assays: Not indicated Systemic treatment plan: Phesgo every 3 weeks to complete 1 year of HER2 directed therapy. Anastrozole Intent: Curative Clinical trial: Not eligible for our current trials Endocrine therapy: Anastrozole HER2 treatment: As above Targeted agents: not indicated Chemotherapy: S/p neoTCHP x6 BMA: We discussed the role of zoledronic acid as adjuvant therapy in post-menopausal (natural or induced) women with breast cancer who are on systemic therapy. Studies have shown that such BMAs can decrease risk of distant recurrence and breast cancer mortality. We discussed that this would be given as an infusion every 6 months for 3 years. We discussed the toxicities that may be associated with this including the risk of osteonecrosis of the jaw. I have recommended a dental evaluation before this is initiated. She was given written information on Zoledronic acid for her review. If she is interested in pursuing this therapy, we can initiate at her follow-up visit once she has received clearance from her dentist. Access: Mediport removal order placed Supportive meds: Anti-emetics and EMLA cream sent to pharmacy Genetic testing: Apt in place, testing not yet performed Fertility preservation: Not indicated Other active problems/orders: CLL: managed expectantly with Dr. Edwards Osteopenia: Zometa discussed above. Will monitor with another DEXA in 2 years Surveillance plan: Continue yearly mammogram; per surg onc team Follow-up: 12 weeks Marilia Arango [place] expressed understanding of the plan outlined above. Marilia Guzman had ample time to ask questions. Marilia Guzman understands she can contact us at any time should she have additional questions or issues arise in the interim. Dima Cage MD Breast Medical Oncology [facility] Portions of this note were dictated utilizing voice recognition software. documented in this encounter [facility] Work Phone: 11-17-2024 History of Present illness Narrative Images from the original note were not included. Radiation Oncology On Treatment Visit Patient Name: Marilia Guzman : 1950 Referring Provider: Josie Carpenter MD Primary Care Provider: Chandler Calzada APRN-OUTSIDE INDUSTRIAL SALES REPRESENTATIVE Care Team: Patient Care Team: SCOTTIE Granados as PCP - General Chava Edwards MD as Consulting Physician (Hematology and Oncology) Dima Cage MD as Consulting Physician (Hematology and Oncology) JEFF Tran as Landing Scaler (Simulation Educator) Chio Motley MD as Consulting Physician (Hematology and Oncology) Brenda Cortes MD as Door Paneler (Cardiology) Date of Service: 11/17/2024 Diagnosis: Specialty Problems Radiation Oncology Problems CLL (chronic lymphocytic leukemia) (Multi) Malignant neoplasm of upper-inner quadrant of left breast in female, estrogen receptor negative Treatment Summary: Radiation Therapy Treatment Period Technique Fraction Dose Fractions Total Dose Course 1 10/27/2024-11/17/2024 (days elapsed: 21) L_BreastLNs 10/27/2024-11/17/2024 VMAT 266 / 266 cGy 15 16 3990 / 4,256 cGy SUBJECTIVE: Tolerating treatment with occasional discomfort in the left breast, using Tylenol. Moisturizing without issues. Denies skin pruritus. No sore throat or odynophagia. OBJECTIVE: Vital Signs: BP 148/87 Pulse 67 Temp 36 C (96.8 F) Resp 18 Wt 58.2 kg (128 lb 3.2 oz) SpO2 98% BMI 23.07 kg/m Other Pertinent Findings: Faint grade 1 dermatitis over the treated breast, axilla, supraclavicular regions without desquamation Toxicity Assessment 10/27/2024 09:03 11/03/2024 08:42 11/10/2024 08:57 11/17/2024 09:03 Toxicity Assessment Adverse Events Reviewed (WDL) No (Exceptions to WDL) No (Exceptions to WDL) No (Exceptions to WDL) No (Exceptions to WDL) Treatment Site Breast Breast Breast Breast Dermatitis Radiation Grade 0 skin cream and instructions given Grade 1 using cream BID Grade 1 using cream BID Grade 1 using skin cream Fatigue Grade 1 Assessment / Plan: The patient is tolerating radiation therapy as anticipated. Continue per current treatment plan. NSAIDs as needed for inflammatory discomfort. Continue skin care. End of treatment this week, follow-up will be scheduled. Thank you for allowing me to participate in this patient's care. Rickey Camacho MD Department of Radiation Oncology [facility] Portions of this note were generated using voice recognition software, and may be subject to solar energy installation manager errors. documented in this encounter [facility] Work Phone: 11-10-2024 History of Present illness Narrative Images from the original note were not included. Radiation Oncology On Treatment Visit Patient Name: Marilia Guzman : 1950 Referring Provider: Josie Carpenter MD Primary Care Provider: SCOTTIE Granados Care Team: Patient Care Team: SCOTTIE Granados as PCP - General Chava Edwards MD as Consulting Physician (Hematology and Oncology) Dima Cage MD as Consulting Physician (Hematology and Oncology) JEFF Tran as Landing Scaler (Simulation Educator) Chio Motley MD as Consulting Physician (Hematology and Oncology) Brenda Cortes MD as Door Paneler (Cardiology) Date of Service: 11/10/2024 Diagnosis: Specialty Problems Radiation Oncology Problems CLL (chronic lymphocytic leukemia) (Multi) Malignant neoplasm of upper-inner quadrant of left breast in female, estrogen receptor negative Treatment Summary: Radiation Therapy Treatment Period Technique Fraction Dose Fractions Total Dose Course 1 10/27/2024-11/10/2024 (days elapsed: 14) L_BreastLNs 10/27/2024-11/10/2024 VMAT 266 / 266 cGy 2926 / 4,256 cGy SUBJECTIVE: Increased redness of the breast without pain or pruritus. She notes minor breast swelling. She is taking Tylenol for shoulder aches. Denies sore throat or odynophagia. OBJECTIVE: Vital Signs: BP 133/84 Pulse 76 Temp 36 C (96.8 F) Resp 16 Wt 57.8 kg (127 lb 6.4 oz) SpO2 98% BMI 22.93 kg/m Other Pertinent Findings: Grade 1 dermatitis of the treated breast and axilla, most apparent in the IMF Toxicity Assessment 10/27/2024 09:03 11/03/2024 08:42 11/10/2024 08:57 Toxicity Assessment Adverse Events Reviewed (WDL) No (Exceptions to WDL) No (Exceptions to WDL) No (Exceptions to WDL) Treatment Site Breast Breast Breast Dermatitis Radiation Grade 0 skin cream and instructions given Grade 1 using cream BID Grade 1 using cream BID Assessment / Plan: The patient is tolerating radiation therapy as anticipated. Continue per current treatment plan. Continue skin care, add Mepilex for the IMF. Thank you for allowing me to participate in this patient's care. Rickey Camacho MD Department of Radiation Oncology [facility] Portions of this note were generated using voice recognition software, and may be subject to solar energy installation manager errors. documented in this encounter [facility] Work Phone: 11-03-2024 History of Present illness Narrative Images from the original note were not included. Radiation Oncology On Treatment Visit Patient Name: Marilia Guzman : 1950 Referring Provider: Josie Carpenter MD Primary Care Provider: SCOTTIE Granados Care Team: Patient Care Team: SCOTTIE Granados as PCP - General Chava Edwards MD as Consulting Physician (Hematology and Oncology) Dima Cage MD as Consulting Physician (Hematology and Oncology) JEFF Tran as Landing Scaler (Simulation Educator) Chio Motley MD as Consulting Physician (Hematology and Oncology) Brenda Cortes MD as Door Paneler (Cardiology) Date of Service: 11/03/2024 Diagnosis: Specialty Problems Radiation Oncology Problems CLL (chronic lymphocytic leukemia) (Multi) Malignant neoplasm of upper-inner quadrant of left breast in female, estrogen receptor negative Treatment Summary: Radiation Therapy Treatment Period Technique Fraction Dose Fractions Total Dose Course 1 10/27/2024-11/03/2024 (days elapsed: 7) L_BreastLNs 10/27/2024-11/03/2024 VMAT 266 / 266 cGy 1596 / 4,256 cGy SUBJECTIVE: Treatment related anxiety has improved as she has settled into the day-to-day treatment process. She denies breast pain or swelling. Moisturizing skin and using a sports bra to limit skin irritation. She notes a sore throat for 1 night, however this spontaneously resolved. OBJECTIVE: Vital Signs: BP 122/77 Pulse 83 Temp 36.3 C (97.3 F) Resp 16 Wt 57 kg (125 lb 9.6 oz) SpO2 98% BMI 22.61 kg/m Other Pertinent Findings: Faint grade 1 dermatitis over the treated breast, no dermatitis over the axilla or supraclavicular regions Toxicity Assessment 10/27/2024 09:03 11/03/2024 08:42 Toxicity Assessment Adverse Events Reviewed (WDL) No (Exceptions to WDL) No (Exceptions to WDL) Treatment Site Breast Breast Dermatitis Radiation Grade 0 skin cream and instructions given Grade 1 using cream BID Assessment / Plan: The patient is tolerating radiation therapy as anticipated. Continue per current treatment plan. Continue moisturization. Thank you for allowing me to participate in this patient's care. Rickey Camacho MD Department of Radiation Oncology [facility] Portions of this note were generated using voice recognition software, and may be subject to solar energy installation manager errors. documented in this encounter [facility] Work Phone: 10-27-2024 History of Present illness Narrative Images from the original note were not included. Radiation Oncology On Treatment Visit Patient Name: Marilia Guzman : 1950 Referring Provider: Josie Carpenter MD Primary Care Provider: SCOTTIE Granados Care Team: Patient Care Team: SCOTTIE Granados as PCP - General Chava Edwards MD as Consulting Physician (Hematology and Oncology) Dima Cage MD as Consulting Physician (Hematology and Oncology) JEFF Tran as Landing Scaler (Simulation Educator) Chio Motley MD as Consulting Physician (Hematology and Oncology) Brenda Cortes MD as Door Paneler (Cardiology) Date of Service: 10/27/2024 Diagnosis: Specialty Problems Radiation Oncology Problems CLL (chronic lymphocytic leukemia) (Multi) Malignant neoplasm of upper-inner quadrant of left breast in female, estrogen receptor negative Treatment Summary: Radiation Therapy Treatment Period Technique Fraction Dose Fractions Total Dose Course 1 10/27/2024-10/27/2024 (days elapsed: 0) L_BreastLNs 10/27/2024-10/27/2024 VMAT 266 / 266 cGy 266 / 4,256 cGy SUBJECTIVE: Anxiety with the first treatment, better now after she knows what to expect during future treatment sessions. Denies new breast pain or swelling. OBJECTIVE: Vital Signs: BP 140/89 Pulse 70 Temp 36.2 C (97.2 F) Resp 16 Wt 56.8 kg (125 lb 3.2 oz) SpO2 98% BMI 22.53 kg/m Other Pertinent Findings: No dermatitis over the treated breast, axilla, or supraclavicular regions Toxicity Assessment 10/27/2024 09:03 Toxicity Assessment Adverse Events Reviewed (WDL) No (Exceptions to WDL) Treatment Site Breast Dermatitis Radiation Grade 0 skin cream and instructions given Assessment / Plan: The patient is tolerating radiation therapy as anticipated. Continue per current treatment plan. Skin care instructions provided. Thank you for allowing me to participate in this patient's care. Rickey Camacho MD Department of Radiation Oncology [facility] Portions of this note were generated using voice recognition software, and may be subject to solar energy installation manager errors. documented in this encounter [facility] Work Phone: 10-07-2024 History of Present illness Narrative Radiation Oncology Nursing Note Prior Radiotherapy: No No radiation treatments to show. (Treatments may have been administered in another system.) Current Systemic Treatment: No Presence of Pacemaker or ICD: No History of Autoimmune or Connective Tissue Disorders: No Pain: The patient's current pain level was assessed. They report currently having a pain of 0 out of 10. They feel their pain is under control without the use of pain medications. Review of Systems: Review of Systems Constitutional: Negative. HENT: Negative. Eyes: Negative. Respiratory: Negative. Cardiovascular: Negative. Gastrointestinal: Negative. Endocrine: Negative. Genitourinary: Positive for difficulty urinating (urgency). Musculoskeletal: Positive for arthralgias. Skin: Negative. Neurological: Negative. Hematological: Negative. Psychiatric/Behavioral: Negative. Radiation Oncology Outpatient Consult Patient Name: Marilia Guzman : 1950 Referring Provider: Josie Carpenter MD Primary Care Provider: SCOTTIE Granados Care Team: Patient Care Team: SCOTTIE Granados as PCP - General Chava Edwards MD as Consulting Physician (Hematology and Oncology) Dima Cage MD as Consulting Physician (Hematology and Oncology) JEFF Tran as Landing Scaler (Simulation Educator) Chio Motley MD as Consulting Physician (Hematology and Oncology) Brenda Cortes MD as Door Paneler (Cardiology) Date of Service: 10/07/2024 SUBJECTIVE History of Present Illness: Marilia Guzman is a 74 y.o. female with invasive ductal carcinoma of the left breast who is referred by Dr. Josie Carpenter for evaluation and management. She has a history of CLL not requiring therapy. She underwent screening mammograms in December 2023 which showed new grouped irregular masses in the deep central superior left breast, with enlarged dense left axillary lymph nodes. Left diagnostic mammogram showed persistence of a 3.8 cm cluster of masses in the upper posterior central aspect of the left breast, the largest measuring approximately 7 mm. On ultrasound there were multiple hypoechoic masses at 12:00, 15 cm FTN corresponding to the mammographic findings. On left axillary ultrasound there were at least 5 abnormal appearing lymph nodes in the left axilla, the largest measuring up to 3 cm. She underwent 2 site left breast biopsy on 02/08/2024. These were at left breast 11:00, 10cm FTN and 12:00, 10cm FTN respectively. Both biopsies showed grade 3 invasive ductal carcinoma, ER-negative NJ weakly positive, HER2 positive 3+. Biopsy of the left axillary lymph node showed metastatic carcinoma. Bone scan showed a focus of uptake in the frontal bone of the calvarium and, however CT head with contrast showed no abnormality to correlate. Staged as cT1(m) N1 M0. She received neoadjuvant TCHP x6, completed 06/2024. Reevaluation left breast mammogram and ultrasound showed interval treatment response of the left breast masses and a left axillary lymph node with residual disease present on imaging. On 08/24/2024 she proceeded with left Magseed localized partial mastectomy and sentinel node excision with Dr. Carpenter. Pathology showed a pCR, ypT0N0. 0/6 lymph nodes were involved, with evidence of treatment related changes in 5 out of 6 removed lymph nodes. Her case was discussed that tumor conference with recommendations to receive adjuvant radiation, continue Herceptin/perjeta and consider endocrine therapy. She states she tolerated chemotherapy poorly with diarrhea, weight loss, electrolyte imbalances and edema. The symptoms have continued to improve since stopping chemotherapy. She tolerated her surgery well with some swelling in the axilla which continues to improve. She denies breast pain or swelling. No upper extremity edema. She has pre-existing issues with her left rotator cuff limiting the mobility of her left shoulder. , age 24 first . Menarche 17, menopause 51. S/p EVER/BSO. No HRT. Past Medical History: Past Medical History: Diagnosis Date Acute maxillary sinusitis 09/23/2024 Anemia 07/25/24 HGB 9.6 HCT 28.2 Arthritis Axillary lymphadenopathy CLL (chronic lymphocytic leukemia) (Multi) found in colon polyp - no hx active treatment Delayed emergence from general anesthesia Diverticulitis 09/23/2024 Diverticulosis 09/23/2024 Dizziness 09/23/2024 Folliculitis 09/23/2024 Generalized weakness 07/26/2024 GERD (gastroesophageal reflux disease) occasional symptoms History of total knee replacement 12/23/2021 Hyperlipidemia Hypertension low BP since chemo Knee pain 09/23/2024 Low blood magnesium 07/26/2024 Lymphoma 09/23/2024 Malignant neoplasm of upper-inner quadrant of left breast in female, estrogen receptor negative Plan: Left Breast Magseed Localized Partial Bracket Mastectomy; [place] Lymph Node Injection; Axillary Magseed Localized [place] Lymph Node Biopsy with Frozen Section; Possible Complete Axillary Lymph Node Dissection 08/24/24 Mitral valve prolapse Osteoarthritis 06/24/2021 Otitis media 09/23/2024 Staphylococcus infection 09/23/2024 Type 2 diabetes mellitus Urinary tract infection 09/23/2024 Past Surgical History: Past Surgical History: Procedure Laterality Date SECTION, LOW TRANSVERSE CHOLECYSTECTOMY COLONOSCOPY 2015 COLONOSCOPY SNARE EXCISION & biopsy 04/14/2011 colonoscopy in August 2016 HYSTERECTOMY OOPHORECTOMY Family History: Cancer-related family history includes Cancer (age of onset: 57) in her mother. Social History: Social History Tobacco Use Smoking status: Never Smokeless tobacco: Never Vaping Use Vaping status: Never Used Substance Use Topics Alcohol use: Yes Comment: occasional drink Drug use: Never Allergies: Allergies Allergen Reactions Aluminum Rash Rash under arms Levofloxacin Myalgia Frozen elbow Nickel Dermatitis Allergy to nickel and aluminium Medications: Current Outpatient Medications: empagliflozin (Jardiance) 25 mg, Take 1 tablet (25 mg) by mouth once daily., Disp: , Rfl: furosemide (Lasix) 20 mg tablet, Take 1 tablet (20 mg) by mouth once daily as needed (leg edema)., Disp: 90 tablet, Rfl: 1 lidocaine-prilocaine (Emla) 2.5-2.5 % cream, Apply topically 1 time if needed for mild pain (1 - 3) (30-60 minutes prior to blood draw from port) for up to 1 dose., Disp: , Rfl: meloxicam (Mobic) 15 mg tablet, Take 1 tablet (15 mg) by mouth once daily., Disp: , Rfl: metFORMIN (Glucophage) 500 mg tablet, Take 1 tablet (500 mg) by mouth 3 times a day., Disp: , Rfl: simvastatin (Zocor) 20 mg tablet, Take 1 tablet (20 mg) by mouth once daily at bedtime., Disp: , Rfl: magnesium chloride 64 mg magnesium tablet, Take 34 mg by mouth once daily. (Patient not taking: Reported on 10/07/2024), Disp: 90 tablet, Rfl: 3 potassium chloride (Klor-Con) 20 mEq packet, Take 20 mEq by mouth once daily. (Patient not taking: Reported on 10/07/2024), Disp: 90 packet, Rfl: 1 Review of Systems: Review of Systems - Oncology - please see nursing note Performance Status: The Karnofsky performance scale today is 80, Normal activity with effort; some signs or symptoms of disease (ECOG equivalent 1). OBJECTIVE BP 152/83 Pulse 79 Temp 36.5 C (97.7 F) Resp 18 Wt 57.6 kg (127 lb) SpO2 99% BMI 22.86 kg/m Physical Exam Vitals reviewed. Constitutional: General: She is not in acute distress. HENT: Head: Normocephalic and atraumatic. Pulmonary: Effort: Pulmonary effort is normal. No respiratory distress. Chest: Comments: Left lumpectomy and axillary SLNB scars well healed, no erythema. Minimal left breast seroma. Mild left axillary seroma. No palpable masses of the left or right breast. Abdominal: General: There is no distension. Musculoskeletal: Comments: Partial range of motion at the left shoulder on abduction. No upper extremity lymphedema. Lymphadenopathy: Upper Body: Right upper body: No supraclavicular or axillary adenopathy. Left upper body: No supraclavicular or axillary adenopathy. Skin: Findings: No erythema or rash. Neurological: Mental Status: She is alert and oriented to person, place, and time. Psychiatric: Mood and Affect: Mood normal. Behavior: Behavior normal. Pathology Review: The pertinent pathology results were reviewed and discussed with the patient. Imaging: The pertinent imaging results were reviewed and discussed with the patient. ASSESSMENT: Marilia Guzman is a 74 y.o. female with a history of CLL (no therapy) and G3 IDC of the left breast, ER-negative, NJ weakly positive, HER2-positive, cT1(m) N1 -> ypT0N0 s/p TCHPx6, left magseed PM/SLNB with a pCR on 08/24/24. PLAN: The rationale, risks, benefits and alternatives of radiation therapy as a component of breast conserving surgery were reviewed with the patient. She initially had cN1 disease (multiple axillary nodes on imaging), and achieved a pCR with deondre-adjuvant treatment. We discussed that the traditional standard of care is to recommend a course of adjuvant radiotherapy to the left breast and regional lymphatics to reduce her risk of locoregional recurrence. We also discussed emerging data from NSABP B51 presented in abstract form, showing no difference in 5-year breast cancer recurrence with the omission of regional gwen radiation for patients who convert from cN1 to pN0 after deondre-adjuvant therapy. We also discussed current unknowns including the safety of gwen radiotherapy omission for her specific receptor status, or with her initial extent of axillary disease. Given these unknowns I recommend proceeding with adjuvant radiotherapy to the left breast and regional lymphatics, and the patient is agreeable with this approach. The side effects of radiotherapy to the left breast and regional lymphatics include but are not limited to skin irritation with possible breakdown, fatigue, possible poor cosmetic outcome, rib fragility, pulmonary toxicity, cardiac toxicity, lymphedema, brachial plexopathy and the possibility of a second malignancy induced by the radiation. She voices understanding and wishes to proceed. Informed consent was signed. CT simulation will be scheduled. NCCN Guidelines were applicable to guide this patients treatment plan. Effort is required for continued longitudinal patient care. Thank you for allowing me to participate in this patient's care. Rickey Camacho MD Department of Radiation Oncology [facility] Portions of this note were generated using voice recognition software, and may be subject to solar energy installation manager errors. documented in this encounter [facility] Work Phone: 10-03-2024 History of Present illness Narrative Images from the original note were not included. Breast Medical Oncology Clinic Location: [facility] Visit Type: Follow-up Visit Oncologic History: 01/08/2024: Screening Mammogram: New grouped irregular masses in the deep central superior left breast. There is an enlarged dense left axillary lymph nodes. No findings in the right breast. 01/08/2024: CT chest abdomen pelvis obtained for monitoring of CLL/SLL. There are scattered groundglass micronodularity's of the bilateral lung bases unchanged since 2016. Enlarged left axillary lymph nodes new compared to August 2016. Stable subcentimeter lesion of the liver with no new worrisome hepatic lesions. 01/20/2024: Left breast ultrasound shows multiple hypoechoic masses 12:00 15 cm from the nipple correlating with the mammogram findings. 02/08/2024: Left breast 11:00 10 cm from the nipple biopsy shows invasive ductal carcinoma grade 3, ER negative, NJ positive (30%) and HER2 positive. Left breast 12:00 10 cm from the nipple biopsy shows invasive ductal carcinoma grade 3, ER negative, NJ positive (5 to 10%) HER2 positive. Axillary lymph node biopsy shows metastatic carcinoma with mucin production. 03/22/2024: Bone scan: Foci of increased radiotracer uptake in the frontal bone of the calvarium. 04/04/2024: Initiated neoadjuvant TCHP 04/15/2024: CT head shows no intracranial pathology or evidence of calvarial pathology. 07/18/24: C6 of neoTCHP 08/24/2024: L PM/SLNBx: No residual carcinoma pathologic complete response ypT0 ypN0 Subjective: Interval History Presents today for follow-up visit. She has recovered well from her surgery. She is recovering appropriately from her chemotherapy reporting that her energy level is close to her baseline. No specific concerns at this time. Gynecologic History: Age of first menses: 17 years old Age of last menses: 51 years old ; FLB at age 24 Post-menopausal She did breastfeed 4-6 weeks Uterus/Ovaries: S/p TAHBSO- fibroid tumors and ovarian cysts OCP: 3 years HRT: No Pertinent Family history: Breast Cancer: None Ovarian Cancer: None Pancreatic Cancer: None Other: Mother- cecal cancer Social History Marilia Guzman reports that she has never smoked. She has never used smokeless tobacco. She reports current alcohol use. She reports no history of drug use. ROS: Review of Systems All other systems reviewed and are negative. Physical Examination: BP 128/79 Pulse 82 Temp 35.6 C (96.1 F) Resp 16 Wt 57.4 kg (126 lb 8.7 oz) SpO2 98% BMI 22.78 kg/m Physical Exam Vitals and nursing note reviewed. Constitutional: General: She is not in acute distress. Appearance: Normal appearance. She is not toxic-appearing. HENT: Head: Normocephalic and atraumatic. Eyes: Conjunctiva/sclera: Conjunctivae normal. Cardiovascular: Rate and Rhythm: Normal rate. Pulmonary: Effort: Pulmonary effort is normal. No respiratory distress. Musculoskeletal: Cervical back: Normal range of motion. Skin: General: Skin is warm and dry. Neurological: Mental Status: She is alert. Psychiatric: Mood and Affect: Mood normal. Breast Examination: . Deferred this visit ECOG Performance Status: [x] 0 Fully active, able to carry on all pre-disease performance without restriction [] 1 Restricted in physically strenuous activity but ambulatory and able to carry out work of a light or sedentary nature, e.g., light house work, office work [] 2 Ambulatory and capable of all selfcare but unable to carry out any work activities; up and about more than 50% of waking hours [] 3 Capable of only limited selfcare; confined to bed or chair more than 50% of waking hours [] 4 Completely disabled; cannot carry on any selfcare; totally confined to bed or chair [] 5 Results: Labs: Reviewed Lab Results Component Value Date WBC 7.6 10/03/2024 HGB 12.7 10/03/2024 HCT 37.8 10/03/2024 MCV 97 10/03/2024 PLT 173 10/03/2024 Chemistry Lab Results Component Value Date/Time NA 139 08/12/2024 1400 K 3.3 (L) 08/12/2024 1400 CL 105 08/12/2024 1400 CO2 25 08/12/2024 1400 BUN 22 08/12/2024 1400 CREATININE 0.83 08/12/2024 1400 Lab Results Component Value Date/Time CALCIUM 8.5 (L) 08/12/2024 1400 ALKPHOS 111 07/25/2024 0910 AST 21 07/25/2024 0910 ALT 13 07/25/2024 0910 BILITOT 0.6 07/25/2024 0910 Imaging: Reviewed above in Onc History Pathology: Reviewed above in Onc History Assessment: At least Clinical prognostic stage IIA (mcT1 cN1 cM0) infiltrating ductal carcinoma of the left breast; Dx in 01/2024 ; Grade 3; ER negative, NJ positive (30%), HER2 positive; Completed 6 cycles of neoadjuvant TCHP; S/p L PM/SLNBx, ypT0 ypN0 Marilia Guzman is a very pleasant 74 y.o. postmenopausal female with newly diagnosed breast cancer with history of CLL managed expectantly. Pathologic complete response. Presents today for adjuvant treatment planning Plan: Surgical Plan: S/p L PM/SLNBx Additional biopsy: No further biopsy indicated Radiation Plan: Referral in Place Additional staging scans/DEXA/echo: Baseline staging scans reviewed. She will require echocardiogram every 3 months while receiving HER2 directed therapy. She is established with oncocardiology Additional Path info (i.e Ki67, PDL1): Not indicated Gene assays: Not indicated Systemic treatment plan: She will complete a total of one year of trastuzumab and pertuzumab; Phesgo ordered. We also discussed endocrine therapy, anastrozole to begin after radiation if she is recommended for radiation. I reviewed the mechanism of action and potential side effects of aromatase inhibitor therapy, including but not limited to arthralgias/myalgias, osteoporosis with potential fracture risk, hot flashes/vasomotor symptoms, and cardiovascular events. I recommended a baseline bone density evaluation and the patient was provided a requisition for this today. Intent: Curative Clinical trial: Not eligible for our current trials Endocrine therapy: As discussed above in light of NJ positive. HER2 treatment: As above Targeted agents: not indicated Chemotherapy: S/p neoTCHP x6 BMA: Will discuss at future visit. Access: Mediport in place Supportive meds: Anti-emetics and EMLA cream sent to pharmacy Genetic testing: Apt in place, testing not yet performed Fertility preservation: Not indicated Other active problems/orders: CLL: managed expectantly with Dr. Edwards Surveillance plan: Continue yearly mammogram Follow-up: 5 weeks Marilia Conchita Guzman expressed understanding of the plan outlined above. Marilia Guzman had ample time to ask questions. Marilia Guzman understands she can contact us at any time should she have additional questions or issues arise in the interim. Dima Cage MD Breast Medical Oncology [facility] Portions of this note were dictated utilizing voice recognition software. Patient to start Phesgo tentatively 10/17/24. Patient prefers afternoon if possible as she has Yoga on Thursday AM's. Will send message to scheduling. Patient to reach out to radiological metallurgist prior. Patient states she will send message to cardiology. Most recent Echo 08/05/24. Labs and port flush today as ordered. Call back instructions reviewed. Patient verbalized understanding. documented in this encounter [facility] Work Phone: 10-03-2024 Instructions Chelsi Mary RN - 10/03/2024 12:10 PM EST Please reach out to Cardiology regarding moving up FUV Start Phesgo 10/17/24 Follow-up with C#2 11/07 Baseline bone density to be scheduled documented in this encounter [facility] Work Phone: 09-28-2024 Evaluation note Diagnosis Onset Date Resolution Cystitis acute September 28, 2 025 6:45pm Folliculitis acute September 28, 2024 6:45pm Hypotension acute September 28, 2024 6:45pm Diabetes type 2, uncontrolled acute November 28, 2024 4:48pm Folliculitis acute November 28, 2024 4:48pm [facility] Work Phone: 1([phone]) 648-192701-06-2025 History of Present illness Narrative* Josie Carpenter MD - 09/26/2024 10:15 AM EST Chief Complaint Post op History of Present Illness Referring Provider: Yanet Rader 74 year-old non-Ashkenazi Uatsdin, female here for post op History: 1) No abnormal mammograms, breast biopsies, or breast surgeries. 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 Bilateral screening mammogram. Scattered fibroglandular tissue. Right breast negative. Left breast masses and left axillary lymphadenopathy. BI- RADS 0. 4) 01/08/2024. CT chest abdomen pelvis for restaging. When compared to prior exam there is interval enlargement of multiple left axillary lymph nodes. No findings in the abdomen. 5) 01/20/2024. Left mammogram and ultrasound at [place]. Masses in the left breast confirm mammographically. Also noted on ultrasound. BI-RADS 4 6) 02/08/2024. Left ultrasound. At 11:00 10 cm from the nipple a 6 x 6 x 5 mm suspicious mass is noted. At 12:00 10 cm from the nipple a 6 x 6 x 6 mm hypoechoic mass is noted. Additionally 2 similar-appearing hypoechoic masses are seen between the 2 masses. At least 5 abnormal lymph nodes are noted.BI-RADS 4. 2 site biopsy is recommended 7) 02/08/2024 2 site left breast biopsy Left breast 11:00 10 cm from the nipple. Grade 3 invasive ductal carcinoma with mucin production. Barrel HydroMARK ER neg [place] 30% Her2 positive Left breast 10:00 2 cm from the nipple. Grade 3 invasive ductal carcinoma. 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 Butterfly HydroMARK 8) masses are noted to span at least 4 cm on mammogram. 9) 03/28/2024 bone scan negative for distant disease 10) TCHP complicated by diarrhea 11) 07/29/2024 left MG/US treatment response BIRADS 6 12) 08/24/2024 left PM/SLNB path CR She presents today for post op. No concerns Left shoulder injury with minimal mobility. 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 Also s/p hyst and BSO G 5 P 2, age of first delivery 24 Less than 5 years OCPs, no fertility treatments, no HRT No family history of breast or ovarian cancer. Mother with cecal cancer at 56 Review of systems A comprehensive ROS was taken on the patient intake form and reviewed with the patient. This form is scanned into the electronic medical record. Constitutional symptoms: Denies generalized fatigue. Denies weight change, fevers/chills, difficulty sleeping Eyes: Denies double vision, glaucoma, cataracts. Ear/nose/throat/mouth: Denies hearing changes, sore throat, sinus problems. Cardiovascular: No chest pain. Denies irregular heartbeat. Denies ankle swelling. Respiratory: No wheezing, cough, or shortness of breath. Gastrointestinal: No abdominal pain, No nausea/vomiting. No indigestion/heartburn. No change in bowel habits. No constipation or diarrhea. Genitourinary: No urinary incontinence. No urinary frequency. No painful urination. Musculoskeletal: No bone pain, no muscle pain, no joint pain. Integumentary: No rash. No masses. No changes in moles. No easy bruising. Neurological: No headaches. No tremors. No numbness/tingling. Psychiatric: No anxiety. No depression. Endocrine: No excessive thirst. Not too hot or too cold. Not tired or fatigued. Hematological/lymphatic: No swollen glands or blood clotting problems. No bruising. Physical exam A superintendent marine oil terminal was offered for all portions of the physical exam. The patient declined. General appearance: appears stated age, alert and oriented x 3 Head: Normocephalic, atraumatic Eyes: conjunctivae/corneas clear. Ears: External ears are normal, hearing is grossly intact. Lungs: normal breathing Heart: regular Abdomen: Soft, nontender, nondistended. Neurologic: grossly normal Lymph nodes: No cervical, supraclavicular or right axillary lymphadenopathy bilaterally. Left axilla with vague 1 cm lymph node. Previous exam: Left axilla with large [address], appears mobile. Breast: A comprehensive breast exam was performed in the seated and supine positions. Breasts are symmetrical. Bilateral nipples are everted. There are no skin changes on arm maneuvers. Bra size: 40D Right: no masses Left: Healing incisions. No erythema. Results Imaging All breast imaging personally reviewed by me. See [facility] Pathology 02/08/2024 2 site left breast biopsy Left breast 11:00 10 cm from the nipple. Grade 3 invasive ductal carcinoma with mucin production. Barrel HydroMARK ER neg [place] 30% Her2 positive Left breast 10:00 2 cm from the nipple. Grade 3 invasive ductal carcinoma. 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 Butterfly HydroMARK Impression: 1) 73 year-old non-Ashkenazi Uatsdin, female here with New left breast cancer mcT1 cN1 grade 3 IDC ER neg NJ 30% Her2 positive Completed TCHP Now s/p left PM/SLNB, path CR 2) Co-morbidities include HTN, DM. Non-smoker 3) No family history of breast or ovarian cancer. Mother with colon cancer Plan: She is here with her . She is recovering well from surgery. She has no activity restrictions. We reviewed her pathology report and she was given a copy. She is happy to hear that she had a pathological complete response. Surgery is complete. She has follow-up with her medical oncologist. I would like her to see the radiation oncologist. She requests the [place] location. I would like to see her in January with a right mammogram. She should call with any sooner concerns. documented in this [facility] Work Phone: 1([phone]) 333-150801-06-2025 Instructions* Patient Instructions* Marshal Sykes RN - 09/26/2024 10:15 AM EST Follow up with Dr. Cage as planned on 10/03 Dr. Carpenter has referred you to radiation oncology. Consultation will be scheduled for you. See Dr. Carpenter for follow up in January 2025 with right mammogram documented in this [facility] Work Phone: 1(677) 791-476812-23-2024 History of Present illness Narrative* Brenda Cotres MD - 09/12/2024 1:15 PM EST Patient: Marilia Guzman Date of : 1950 Chief Complaint/Active Symptoms: Marilia Guzman is a 74 y.o. female who returns today for cardiac follow-up. Here for follow-up of leg edema. Is using furosemide prn but hasn't had to take any for the past week. Some mild edema at the end of the day at times. No shortness of breath. No chest pain or discomfort. No dizziness or lightheadedness. Stopped her losartan and was only using it as needed because of lightheadedness and hypotension. She has ended upusing it only about every 5 days. Had partial mastectomy and LND in early August. Pathology is still pending. She sees the oncologist in early September. She is unclear whether they are planning to do radiation therapy or just resumeher trastuzumab to complete 1 year of therapy. Cancer Diagnosis: Left breast cancer, ER negative, NJ+ 30%, HER2+ Oncologist: Josie Yun Treatment: TCHP, completed 6 cycles 07/18/24 Cancer Diagnosis #2: CLL / SLL - b lymphocytes - CD% and 23 + Oncologist: Chava Hebert Treatment: Observation at present. Review of Systems Constitutional: Positive for fatigue. Cardiovascular: Positive for leg swelling. Negative for chest pain and palpitations. Gastrointestinal: Negative. Genitourinary: Negative. Musculoskeletal: Positive for arthralgias. Neurological: Positive for light-headedness. Psychiatric/Behavioral: Negative. All other systems reviewed and are negative. Objective: Visit Vitals BP 130/68 (BP Location: Right arm, Patient Position: Sitting) Pulse 79 Ht 1.588 m (5' 2.5) Wt 56.7 kg (125 lb) BMI 22.50 kg/m OB Status Hysterectomy Smoking Status Never BSA 1.58 m Allergies: Allergies Allergen Reactions Aluminum Rash Rash under arms Levofloxacin Myalgia Frozen elbow Nickel Dermatitis Allergy to nickel and aluminium Medications: Current Outpatient Medications Medication Instructions empagliflozin (JARDIANCE) 25 mg, Daily furosemide (LASIX) 20 mg, oral, Daily PRN lidocaine-prilocaine (Emla) 2.5-2.5 % cream Apply topically 1 time if needed for mild pain (1 - 3) (30-60 minutes prior to blood draw from port) for up to 1 dose. magnesium chloride 34 mg, oral, Daily meloxicam (MOBIC) 15 mg, Daily metFORMIN (GLUCOPHAGE) 500 mg, 3 times daily potassium chloride (Klor-Con) 20 mEq packet 20 mEq, oral, Daily simvastatin (ZOCOR) 20 mg, Nightly Physical Examination: GENERAL: Well developed, well nourished, in no acute distress. HEENT: NC AT, EOMI with anicteric sclera NECK: Supple, no JVD, no bruit. CHEST: Symmetric and nontender. LUNGS: Clear to auscultation bilaterally, normal respiratory effort. HEART: PMI is nondisplaced. RRR with normal S1 and S2, no S3, no mumur or rub. No carotid or abdominal bruits ABDOMEN: Soft, NT, ND without palpable organomegaly or bruits EXTREMITIES: Warm with good color, no clubbing or cyanosis. There is no edema noted. PERIPHERAL VASCULAR: Pulses present and equally palpable; 2+ throughout. MUSCULOSKELETAL: Mild osteoarthritic changes NEURO/PSYCH: Alert and oriented times three with approppriate behavior and responses. Nonfocal motor examination with normal gait and ambulation Skin: no rash or lesions on exposed skin or reported. Lab: CBC: Lab Results Component Value Date WBC 9.4 08/12/2024 RBC 2.96 (L) 08/12/2024 HGB 10.4 (L) 08/12/2024 HCT 31.3 (L) 08/12/2024 PLT 286 08/12/2024 CMP: Lab Results Component Value Date NA 139 08/12/2024 K 3.3 (L) 08/12/2024 CL 105 08/12/2024 CO2 25 08/12/2024 BUN 22 08/12/2024 CREATININE 0.83 08/12/2024 GLUCOSE 140 (H) 08/12/2024 CALCIUM 8.5 (L) 08/12/2024 Magnesium: Lab Results Component Value Date MG 1.55 (L) 08/12/2024 Lipid Profile: No results found for: CHLPL, TRIG, HDL, LDLCALC, LDLDIRECT TSH: No results found for: TSH BNP: Lab Results Component Value Date BNP 15 05/13/2024 PT/INR: Lab Results Component Value Date PROTIME 10.2 03/22/2024 INR 0.9 03/22/2024 HgBA1c: No results found for: HGBA1C BMP: Lab Results Component Value Date NA 139 08/12/2024 NA 139 07/25/2024 NA 138 07/15/2024 K 3.3 (L) 08/12/2024 K 3.0 (L) 07/25/2024 K 3.5 07/15/2024 CL 105 08/12/2024 CL 102 07/25/2024 CL 102 07/15/2024 CO2 25 08/12/2024 CO2 24 07/25/2024 CO2 26 07/15/2024 BUN 22 08/12/2024 BUN 11 07/25/2024 BUN 20 07/15/2024 CREATININE 0.83 08/12/2024 CREATININE 0.79 07/25/2024 CREATININE 0.77 07/15/2024 Cardiac Enzymes: Lab Results Component Value Date TROPHS 4 08/12/2024 TROPHS 4 05/13/2024 Hepatic Function Panel: Lab Results Component Value Date ALKPHOS 111 07/25/2024 ALT 13 07/25/2024 AST 21 07/25/2024 PROT 5.5 (L) 07/25/2024 BILITOT 0.6 07/25/2024 Lab results reviewed, pathology still pending Diagnostic Studies: Transthoracic Echo Complete Result Date: 03/23/2024 [facility], [address] [place] [address], [address], [place] [address] and TRANSTHORACIC ECHOCARDIOGRAM REPORT Patient Name: MARILIA Choi Physician: [id number] Shelby MD Study Date: 03/23/2024 Ordering Provider: [id number] DIMA CAGE MRN/PID: [id number]: Nurse: Date of /Age: 9 1950 / 73 years Research Lab Assistant: Lina Andrew RDCS Gender: F Additional Staff: Height: 157.48 cm Admit Date: Weight: 59.87 kg Admission Status: Outpatient BSA / BMI: 1.60 m2 / 24.14 kg/m2 Blood Pressure: 121/81 mmHg Department Location: [facility] Study Type: TRANSTHORACIC ECHO (TTE) COMPLETE Diagnosis/ICD: Encounter for antineoplastic chemotherapy-Z51.11 Indication: Pre chemotherapy echo CPT Code: Echo Complete w Full Doppler-[id number] Patient History: Pertinent History: Breast CA. Study Detail: The following Echo studies were performed: 2D, M-Mode, Doppler and color flow. PHYSICIAN INTERPRETATION: Left Ventricle: The left ventricular systolic function is normal, with a visually estimated ejection fraction of 60-65%. There are no regional wall motion abnormalities. The left ventricular cavity size is normal. Spectral Doppler shows an impaired relaxation pattern of left ventricular diastolic filling. LeftAtrium: The left atrium is upper limits of normal in size. Right Ventricle: The right ventricle is normal in size. There is normal right ventricular global systolic function. Right Atrium: The right atrium is normal in size. Aortic Valve: The aortic valve is trileaflet. There is no evidence of aortic valve regurgitation. The peak instantaneous gradient of the aortic valve is 11.0 mmHg. Mitral Valve: The mitral valve is mildly thickened. There is moderate mitral valve prolapse of the anterior and posterior leaflets. There is mild mitral valve regurgitation. Mitral annular dysjunction is present. Tricuspid Valve: The tricuspid valve is structurally normal. There is trace tricuspid regurgitation. The Doppler estimated RVSP is within normal limits at 26.1 mmHg. Pulmonic Valve: The pulmonic valve is structurally normal. There is physiologic pulmonic valve regurgitation. Pericardium: There jing trivial pericardial effusion. Aorta: The aortic root is normal. There is no dilatation of the aortic root. CONCLUSIONS: 1. The left ventricular systolic function is normal, with a visually estimated ejection fraction of 60-65%. 2. Spectral Doppler shows an impaired relaxation pattern of left ventricular diastolic filling. 3. There is normal right ventricular global systolic function. 4. There is moderate mitral valve prolapse. 5. There is mild mitral valve regurgitation. 6. RVSP within normal limits. QUANTITATIVE DATA SUMMARY: 2D MEASUREMENTS: Normal Ranges: LAs: 3.61 cm (2.7-4.0cm) IVSd: 0.60 cm (0.6-1.1cm) LVPWd: 0.95 cm (0.6-1.1cm) LVIDd: 4.09 cm (3.9-5.9cm) LVIDs: 3.12 cm LV Mass Index: 57.7 g/m2 LV % FS 23.7 % LA VOLUME: Normal Ranges: LA Vol A4C: 43.1 ml (22+/-6mL/m2) LA Vol A2C: 56.8 ml LA Vol Index A4C: 26.9 ml/m2 LA Vol Index A2C: 35.4 ml/m2 LA Area A4C: 17.0 cm2 LA Major [place] A4C: 5.7 cm LA Vol A4C: 39.9 ml LA Vol A2C: 53.3 ml RA VOLUME BY A/L METHOD: Normal Ranges: RA VolA4C: 22.4 ml (8.3-19.5ml) RA Vol Index A4C: 14.0 ml/m2 RA Area A4C: 11.0 cm2 RA Major [place] A4C: 4.6cm M-MODE MEASUREMENTS: Normal Ranges: Ao Root: 3.20 cm (2.0-3.7cm) LAs: 3.60 cm (2.7-4.0cm) AORTA M EASUREMENTS: Normal Ranges: Asc Ao, d: 3.10 cm (2.1-3.4cm) Ao Arch: 2.70 cm (2.0-3.6cm) LV SYSTOLICFUNCTION BY 2D PLANIMETRY (MOD): Normal Ranges: EF-A4C View: 60 % (>=55%) EF-A2C View: 68 % EF-Biplane: 65 % EF-Visual: 63 % LV EF Reported: 63 % LV DIASTOLIC FUNCTION: Normal Ranges: MV Peak E: 0.67 m/s (0.7- 1.2 m/s) MV Peak A: 0.87 m/s (0.42-0.7 m/s) E/A Ratio: 0.77 (1.0-2.2) MV e' 0.088 m/s (>8.0) MV lateral e' 0.11 m/s MV medial e' 0.06 m/s MV A Dur: 137.01 msec E/e' Ratio: 7.65 (<8.0) PulmV Sys Nilson: 49.67 cm/s PulmV Garcia Nilson: 32.05 cm/s PulmV S/D Nilson: 1.55 PulmV A Revs Nilson: 24.34 cm/s PulmV A Revs Dur: 137.01 msec MITRAL VALVE: Normal Ranges: MV DT: 263 msec (150-240msec) AORTIC VALVE: Normal Ranges: AoV Vmax: 1.66 m/s (<=1.7m/s) AoV Peak P.0 mmHg (<20mmHg) LVOT MaxVel: 1.32 m/s (<=1.1m/s) LVOT VTI: 28.79 cm LVOT Diameter: 2.11 cm (1.8-2.4cm) AoV Area,Vmax: 2.79 cm2 (2.5-4.5cm2) AORTIC INSUFFICIENCY: AI Vmax: 3.69 m/s AI Half-time: 722 msec AI Decel Time: 2490 msec AI Decel Rate: 149.16 cm/s2 RIGHT VENTRICLE: RV Basal 2.70 cm RV Mid 2.00 cm RV Major 5.8 cm TAPSE: 17.0 mm RV s' 0.10 m/s TRICUSPID VALVE/RVSP: Normal Ranges: Peak TR Velocity: 2.40 m/s RV Syst Pressure: 26.1 mmHg (< 30mmHg) IVC Diam: 2.00 cm PULMONIC VALVE: Normal Ranges: PV Accel Time:104 msec (>120ms) PV Max Nilson: 0.8 m/s (0.6-0.9m/s) PV Max P.4 mmHg Pulmonary Veins: PulmV A Revs Dur: 137.01 msec PulmV A Revs Nilson: 24.34 cm/s PulmV Garcia Nilson: 32.05 cm/s PulmV S/D Nilson: 1.55 PulmV Sys Nilson: 49.67 cm/s [id number] Linus Shelby MD Electronically signed on 03/23/2024 at 6:06:22 PM Final Echo results from July Radiology: No orders to display ASSESSMENT Problem List Items Addressed This Visit Malignant neoplasm of upper-inner quadrant of left breast in female, estrogen receptor negative - Primary Relevant Orders Follow Up In Cardiology Encounter for monitoring cardiotoxic drug therapy Relevant Orders Follow Up In Cardiology Edema of right lower leg Hypomagnesemia PLAN 1. Left breast cancer. Cardiotoxic drug therapy. Patient will be completing a year of trastuzumab therapy the question is when she will be restarting following her partial mastectomy. Will wait to see what the recommendations of her oncologist are in September and the patient will let me know. Will repeat an echocardiogram 3 months after she restarts and check her troponin and BN peptide. So far she has had a borderline change in her LV function and no change in strain. Her initial EF was 60 to 65% her most recent 1 was 55-60 that may not demonstrate any significant change. She has no clinical signs or symptoms of heart failure now that her edema has resolved. Obviously with her blood pressure readings she cannot tolerate losartan therapy on any type of regular scheduled basis so we recommend we discontinue that. If her blood pressure stabilized we will consider restarting it with just losartan but without the thiazide diuretic and she will take the furosemide as needed. 2. Leg edema. This is resolved. She uses the furosemide on a as needed basis. 3. History of hypertension. Obviously not an issue now and patient remains intermittently hypotensive. That was during her therapy if things stabilize would have a low threshold for restarting the losartan without the hydrochlorothiazide. 4. Hypokalemia and hypomagnesemia. Patient will fluctuate [id number] between potassium tablets and packets depending on her absorbency from her tract and is tolerating the Slow-Mag well without diarrhea. If the patient does not resume cardiotoxic chemotherapy will see her in 6 months. Otherwise we willplan on seeing her after an limited echocardiogram 3 months following resumption of her trastuzumabtreatments documented in this [facility] Work Phone: 1(798) 596-337112-04-2024 Hospital Discharge instructions* Discharge Instructions* Josie Carpenter MD - 08/24/2024 9:36 AM EST POST-OP INSTRUCTIONS FOR BREAST SURGERY PATIENTS: DR. JOSIE CARPENTER Activity: Avoid direct impact to the surgical site. No heavy lifting (greater than 10 lbs) or strenuous activity with the arm on the surgical side until evaluated at post-op appointment. Wound care: Ice pack, if desired, on and off in 15 minute intervals. A supportive bra can be worn for comfort and support. You may start showering normally tomorrow. Don't scrub and pat the surgical site dry. No swimming or submerging the surgical site in a hot tub or bath for 2 weeks. Outer dressing to be removed in 2 days. Leave steri-strips intact for 1 week. Observe the surgical site for signs of bleeding or infection. (Some swelling or bruising is anticipated. A small amount of blood or an air bubble beneath the dressing is not a cause for concern.) Call physician with abnormal findings: Progressive swelling, increasing pain, bright red skin discoloration, chills or fever (Temperature 101.5 or higher). Follow-up: post-op appointment with Dr. Carpenter was previously scheduled. Pathology report will be discussed at that visit. Pain: Rx given You may also use qxgf-vgt-mlfogda medication such as Tylenol (acetaminophen) or Advil (ibuprofen). Remember that some prescription medications contain Tylenol (acetaminophen). If you are taking a prescription medication that contains Tylenol (acetaminophen), do not take additional vujn-wfi-wxhmofcFzkxrme. All pain medications can be constipating; remember to drink plenty of fluids and use stool softenerand/or laxatives as needed. These are available [id number]-iewhcqk. Pain control is best when medication is taken before pain becomes severe. Medication refills: Medications cannot be refilled after business hours or on weekends. Questions / Concerns: Call Clinic [phone], option 2. documented in this [facility] Work Phone: 1(141) 915-168812-04-2024 Miscellaneous Notes* Op Note - Josie Carpenter MD - 08/24/2024 7:59 AM EST Left Breast Magseed Localized Partial Bracket Mastectomy; [place] Lymph Node Injection; Axillary Magseed Localized [place] Lymph Node Biopsy with Frozen Section (L) Operative Note Date: 08/24/2024 OR Location: [facility] OR Name: Marilia A Megan, : 1950, Age: 74 y.o., , Sex: female Diagnosis Pre-op Diagnosis * Malignant neoplasm of upper-inner quadrant of left breast in female, estrogen receptor negative [C50.212, Z17.1] Post-op Diagnosis * Malignant neoplasm of upper-inner quadrant of left breast in female, estrogen receptor negative [C50.212, Z17.1] Procedures Left Breast Magseed Localized Partial Bracket Mastectomy; [place] Lymph Node Injection; Axillary Magseed Localized [place] Lymph Node Biopsy with Frozen Section 24921 - [place] BX/EXC LYMPH NODE OPEN DEEP AXILLARY NODE Left Breast Magseed Localized Partial Bracket Mastectomy; [place] Lymph Node Injection; Axillary Magseed Localized [place] Lymph Node Biopsy with Frozen Section 80999 - [place] BX/EXC LYMPH NODE OPEN SUPERFICIAL Left Breast Magseed Localized Partial Bracket Mastectomy; [place] Lymph Node Injection; Axillary Magseed Localized [place] Lymph Node Biopsy with Frozen Section 86053 - [place] INTRAOP SENTINEL LYMPH NODE ID W/DYE INJECTION Left Breast Magseed Localized Partial Bracket Mastectomy; [place] Lymph Node Injection; Axillary Magseed Localized [place] Lymph Node Biopsy with Frozen Section 18840 - [place] MASTECTOMY PARTIAL Surgeons * Josie Carpenter - Primary Resident/Fellow/Other Interactive Media Marketing Strategist: Surgeons and Role: * No surgeons found with a matching role * Staff: Homemaker Companion: Foxing Closer: Celina Scrub Person: Keisha Burch Scrub: Mary Anesthesia Staff: Anesthesiologist: Pablo Hernández DO PASSPORT APPLICATION EXAMINER: JATIN Higgins, MELISSA C-AA: YULIANA Hemphill Procedure Summary Anesthesia: General ASA: III Estimated Blood Loss: 5mL Intra-op Medications: Administrations occurring from 0730 to 1100 on 08/24/24: Medication Name Total Dose sodium chloride 0.9 % irrigation solution 1,000 mL lidocaine (Xylocaine) 10 mg/mL (1 %) injection 15 mL bupivacaine PF 0.25 % (Marcaine) 0.25 % (2.5 mg/mL) injection 15 mL isosulfan blue (Lumphazurin) 1 % injection 2 mL ceFAZolin (Ancef) vial 1 g 2 g dexAMETHasone (Decadron) injection 4 mg/mL 4 mg fentaNYL (Sublimaze) injection 50 mcg/mL 100 mcg HYDROmorphone (Dilaudid) injection 1 mg/mL 0.4 mg LR infusion Cannot be calculated lidocaine PF (Xylocaine-MPF) local injection 2 % 80 mg midazolam PF (Versed) injection 1 mg/mL 2 mg ondansetron (Zofran) 2 mg/mL injection 4 mg propofol (Diprivan) injection 10 mg/mL 1,033.82 mg Anesthesia Record Intraprocedure I/O Totals Output Est. Blood Loss 5 mL Total Output 5 mL Specimen: ID Type Source Tests Collected by Time 1 : Left Axillary [place] Lymph Node w/ Magseed Tissue SENTINEL LYMPH NODE BREAST LEFT SURGICAL PATHOLOGY EXAM Celina Seymour RN 08/24/2024 0717 2 : Additional axillary Sentinal Lymph Nodes Tissue SENTINEL LYMPH NODE BREAST LEFT SURGICAL PATHOLOGY EXAM Celina Seymour RN 08/24/2024 0800 3 : Left Breast Magseed Localized Partial Mastectomy Bracket Tissue BREAST LUMPECTOMY LEFT SURGICALPATHOLOGY EXAM Celina Seymour RN 08/24/2024 0803 4 : Left Anterior Breast Margin- Black ink massey new margin Tissue BREAST MARGIN LEFT SURGICAL PATHOLOGY EXAM Celina Seymour RN 08/24/2024 0810 5 : Left Inferior Breast Margin- Black ink massey new margin Tissue BREAST MARGIN LEFT SURGICAL PATHOLOGY EXAM Celina Seymour RN 08/24/2024 0811 6 : Left Lateral Breast Margin- Black ink massey new margin Tissue BREAST MARGIN LEFT SURGICAL PATHOLOGY EXAM Celina Seymour RN 08/24/2024 0811 7 : Left Medial Breast Margin- Black ink massey new margin Tissue BREAST MARGIN LEFT SURGICAL PATHOLOGY EXAM Celina Seymour RN 08/24/2024 0811 8 : Left Posterior Breast Margin- Black ink massye new margin Tissue BREAST MARGIN LEFT SURGICAL PATHOLOGY EXAM Celina Seymour RN 08/24/2024 0811 9 : Left Superior Breast Margin- Black ink massey new margin Tissue BREAST MARGIN LEFT SURGICAL PATHOLOGY EXAM Celina Seymour RN 08/24/2024 0812 Drains and/or Catheters: * None in log * Tourniquet Times: Implants: Findings: 1) left axilla: lymph node, Magseed and clip 2) left breast: 2 mag seeds and 2 clips 3) left axillary lymph nodes frozen section with 2 lymph nodes with mucin but no obvious viable tumor cells. Defer to permanent the remaining lymph nodes Indications: Marilia Guzman is an 74 y.o. female who is having surgery for Malignant neoplasm of upper-inner quadrant of left breast in female, estrogen receptor negative [C50.212, Z17.1]. The patient was seen in the preoperative area. The risks, benefits, complications, treatment options, non-operative alternatives, expected recovery and outcomes were discussed with the patient. The possibilities of reaction to medication, pulmonary aspiration, injury to surrounding structures, bleeding, recurrent infection, the need for additional procedures, failure to diagnose a condition, and creating a complication requiring transfusion or operation were discussed with the patient. The patient concurred with the proposed plan, giving informed consent. The site of surgery was properly noted/marked if necessary per policy. The patient has been actively warmed in preoperative area. Preoperative antibiotics have been ordered and given within 1 hours of incision. Venous thrombosis prophylaxis have been ordered including bilateral sequential compression devices Procedure Details: Informed consent was obtained. The surgical site marked and the Day of Surgery Update completed. The patient was taken to the operating room and positioned in a supine position on the operating room table. Anesthesia was induced without difficulty. SCDs were placed for DVT prophylaxis. Antibiotics were administered within 60 minutes prior to incision for surgical prophylaxis. Lower body Bruce Hugger was applied to help maintain normothermia. I reviewed my note and the appropriate films. A surgical safety time-out was performed. I injected Tc99 in an periareolar fashion. I injected 2 cc of methylene blue solution in the retroareolar area of the left breast and vigorously massaged the breast for 3 minutes. Using the sentimag probe, I approximated the location of the mag seed marking the lesion of concern. The patient was sterilely prepped and draped in the usual fashion. I turned my attention to the left axilla. A curvilinear incision was planned in the inferior aspectof the axilla. The skin and surrounding tissue was anesthetized with local anesthetic. The incisionwas made with a 15 blade scalpel. The incision was deepened through the subcutaneous tissue with bovie. I divided clavipectoral fascia and entered the axilla. Using the Sentimag probe I excised the localized lymph node. This node was also hot. Specimen x-ray confirmed the presence of the lymph nodeMagseed clip. This node was sent to pathology for frozen section. Using a combination of the hand held gamma counter, blue dye and palpation, I removed the additional sentinel lymph nodes. There wereno additional palpable lymph nodes. These nodes were also sent to pathology for frozen section I then turned my attention to the left breast. The skin and surrounding tissue was anesthetized with local anesthetic. A curvilinear skin incision was made with a 15 blade scalpel in the superior breast. Subcutaneous tissues were sharply divided down to and into subcutaneous fat using Bovie cautery. I dissected towards the mag seeds. Mag seed location was confirmed throughout using the sentimag probe. I grasped the intended specimen with an Allis clamp. The entire area of tissue surrounding themag seeds was excised en bloc with the mag seeds intact. The specimen was oriented with a short stitch superiorly and a long stitch laterally, and labeled as left breast mag seed localized partial mas tectomy bracket. The specimen was inked per the vector kit. Specimen radiograph was taken and I reviewed the film myself. The clips were identified in the specimen and the mag seeds were intact. Radiologically the margins appeared adequate. I then excised 6 cavity shave margins using the bovie and oriented the new margin in with black ink I placed clips around the perimeter of the lumpectomy cavity and 2 clips in the posterior margin. The cavity was irrigated with sterile saline solution. Hemostasis was achieved and confirmed with cautery. Hemostasis was achieved with bovie. The deep dermal layer was closed with interrupted 3-0 vicryl sutures. The skin was closed with a running 4-0 monocryl subcuticular stitch. At this point the pathologist called into the room. He examined to of the more suspicious lymph nodes including the previously biopsied positive lymph node. He noted abundant mucin in both nodes but no viable tumor cells. He suggests deferring lymph node evaluation to permanent section. Given that no definitive carcinoma was noted I opted not to proceed with a complete axillary dissection. the axilla was irrigated with sterile saline solution. Hemostasis was achieved and confirmed. The axilla was closed in 3 layers. Clavipectoral fascia was reapproximated with a running 2-0 vicryl stitch. Thedeep dermal layer was closed with inverted, interrupted 3-0 vicryl stitches. The skin was closed with a running 4-0 running monocryl suture. A sterile dressing was applied. A surgical bra was used for light compression. Anesthesia was reversed and the patient was brought to the recovery room in stable condition havingtolerated the procedure well. There were no complications. 30 cc of 1% lidocaine/0.25% marcaine mixed was used throughout the case. Complications: None; patient tolerated the procedure well. Disposition: PACU - hemodynamically stable. Condition: stable [place] Node Biopsy for Breast Cancer - Left Operation performed with curative intent Yes Tracer(s) used to identify sentinel nodes in the upfront surgery (non- neoadjuvant) setting N/A Tracer(s) used to identify sentinel nodes in the neoadjuvant setting Dye and Radioactive tracer All nodes (colored or non-colored) present at the end of a dye-filled lymphatic channel were removed Yes All significantly radioactive nodes were removed Yes All palpably suspicious nodes were removed Yes Biopsy-proven positive nodes marked with clips prior to chemotherapy were identified and removed Yes Task Performed by ART TRACER or Homemaker Companion: Surgical exposure and wound closure Additional Details: posterior margin to pec Attending Attestation: A qualified resident physician was not available. Josie Carpenter documented in this [facility] Work Phone: 1(408) 615-485212-04-2024 Note* Op Note - Josie Carpenter MD - 08/24/2024 7:59 AM EST Left Breast Magseed Localized Partial Bracket Mastectomy; [place] Lymph Node Injection; Axillary Magseed Localized [place] Lymph Node Biopsy with Frozen Section (L) Operative Note Date: 08/24/2024 OR Location: [facility] OR Name: Marilia Guzman, : 1950, Age: 74 y.o., , Sex: female Diagnosis Pre-op Diagnosis * Malignant neoplasm of upper-inner quadrant of left breast in female, estrogen receptor negative [C50.212, Z17.1] Post-op Diagnosis * Malignant neoplasm of upper-inner quadrant of left breast in female, estrogen receptor negative [C50.212, Z17.1] Procedures Left Breast Magseed Localized Partial Bracket Mastectomy; [place] Lymph Node Injection; Axillary Magseed Localized [place] Lymph Node Biopsy with Frozen Section 92719 - [place] BX/EXC LYMPH NODE OPEN DEEP AXILLARY NODE Left Breast Magseed Localized Partial Bracket Mastectomy; [place] Lymph Node Injection; Axillary Magseed Localized [place] Lymph Node Biopsy with Frozen Section 74461 - [place] BX/EXC LYMPH NODE OPEN SUPERFICIAL Left Breast Magseed Localized Partial Bracket Mastectomy; [place] Lymph Node Injection; Axillary Magseed Localized [place] Lymph Node Biopsy with Frozen Section 02009 - [place] INTRAOP SENTINEL LYMPH NODE ID W/DYE INJECTION Left Breast Magseed Localized Partial Bracket Mastectomy; [place] Lymph Node Injection; Axillary Magseed Localized [place] Lymph Node Biopsy with Frozen Section 74101 - [place] MASTECTOMY PARTIAL Surgeons * Josie Carpenter - Primary Resident/Fellow/Other Interactive Media Marketing Strategist: Surgeons and Role: * No surgeons found with a matching role * Staff: Homemaker Companion: Foxing Closer: Cleina Scrub Person: Keisha Burch Scrub: Mary Anesthesia Staff: Anesthesiologist: Pablo Hernández DO PASSPORT APPLICATION EXAMINER: Nelson Wu APRN-MARITO, MELISSA C-AA: YULIANA Hemphill Procedure Summary Anesthesia: General ASA: III Estimated Blood Loss: 5mL Intra-op Medications: Administrations occurring from 0730 to 1100 on 08/24/24: Medication Name Total Dose sodium chloride 0.9 % irrigation solution 1,000 mL lidocaine (Xylocaine) 10 mg/mL (1 %) injection 15 mL bupivacaine PF 0.25 % (Marcaine) 0.25 % (2.5 mg/mL) injection 15 mL isosulfan blue (Lumphazurin) 1 % injection 2 mL ceFAZolin (Ancef) vial 1 g 2 g dexAMETHasone (Decadron) injection 4 mg/mL 4 mg fentaNYL (Sublimaze) injection 50 mcg/mL 100 mcg HYDROmorphone (Dilaudid) injection 1 mg/mL 0.4 mg LR infusion Cannot be calculated lidocaine PF (Xylocaine-MPF) local injection 2 % 80 mg midazolam PF (Versed) injection 1 mg/mL 2 mg ondansetron (Zofran) 2 mg/mL injection 4 mg propofol (Diprivan) injection 10 mg/mL 1,033.82 mg Anesthesia Record Intraprocedure I/O Totals Output Est. Blood Loss 5 mL Total Output 5 mL Specimen: ID Type Source Tests Collected by Time 1 : Left Axillary [place] Lymph Node w/ Magseed Tissue SENTINEL LYMPH NODE BREAST LEFT SURGICAL PATHOLOGY EXAM Celina Seymour RN 08/24/2024 0717 2 : Additional axillary Sentinal Lymph Nodes Tissue SENTINEL LYMPH NODE BREAST LEFT SURGICAL PATHOLOGY EXAM Celina Seymour RN 08/24/2024 0800 3 : Left Breast Magseed Localized Partial Mastectomy Bracket Tissue BREAST LUMPECTOMY LEFT SURGICALPATHOLOGY EXAM Celina Seymour RN 08/24/2024 0803 4 : Left Anterior Breast Margin- Black ink massey new margin Tissue BREAST MARGIN LEFT SURGICAL PATHOLOGY EXAM Celina Seymour RN 08/24/2024 0810 5 : Left Inferior Breast Margin- Black ink massey new margin Tissue BREAST MARGIN LEFT SURGICAL PATHOLOGY EXAM Celina Seymour RN 08/24/2024 08 6 : Left Lateral Breast Margin- Black ink massey new margin Tissue BREAST MARGIN LEFT SURGICAL PATHOLOGY EXAM Celina Seymour RN 08/24/2024 08 7 : Left Medial Breast Margin- Black ink massey new margin Tissue BREAST MARGIN LEFT SURGICAL PATHOLOGY EXAM Celina Seymour RN 08/24/2024 08 8 : Left Posterior Breast Margin- Black ink massey new margin Tissue BREAST MARGIN LEFT SURGICAL PATHOLOGY EXAM Celina Seymour RN 08/24/2024 08 9 : Left Superior Breast Margin- Black ink massey new margin Tissue BREAST MARGIN LEFT SURGICAL PATHOLOGY EXAM Celina Seymour RN 08/24/2024 08 Drains and/or Catheters: * None in log * Tourniquet Times: Implants: Findings: 1) left axilla: lymph node, Magseed and clip 2) left breast: 2 mag seeds and 2 clips 3) left axillary lymph nodes frozen section with 2 lymph nodes with mucin but no obvious viable tumor cells. Defer to permanent the remaining lymph nodes Indications: Marilia Guzman is an 74 y.o. female who is having surgery for Malignant neoplasm of upper-inner quadrant of left breast in female, estrogen receptor negative [C50.212, Z17.1]. The patient was seen in the preoperative area. The risks, benefits, complications, treatment options, non-operative alternatives, expected recovery and outcomes were discussed with the patient. The possibilities of reaction to medication, pulmonary aspiration, injury to surrounding structures, bleeding, recurrent infection, the need for additional procedures, failure to diagnose a condition, and creating a complication requiring transfusion or operation were discussed with the patient. The patient concurred with the proposed plan, giving informed consent. The site of surgery was properly noted/marked if necessary per policy. The patient has been actively warmed in preoperative area. Preoperative antibiotics have been ordered and given within 1 hours of incision. Venous thrombosis prophylaxis have been ordered including bilateral sequential compression devices Procedure Details: Informed consent was obtained. The surgical site marked and the Day of Surgery Update completed. The patient was taken to the operating room and positioned in a supine position on the operating room table. Anesthesia was induced without difficulty. SCDs were placed for DVT prophylaxis. Antibiotics were administered within 60 minutes prior to incision for surgical prophylaxis. Lower body Bruce Hugger was applied to help maintain normothermia. I reviewed my note and the appropriate films. A surgical safety time-out was performed. I injected Tc99 in an periareolar fashion. I injected 2 cc of methylene blue solution in the retroareolar area of the left breast and vigorously massaged the breast for 3 minutes. Using the sentimag probe, I approximated the location of the mag seed marking the lesion of concern. The patient was sterilely prepped and draped in the usual fashion. I turned my attention to the left axilla. A curvilinear incision was planned in the inferior aspectof the axilla. The skin and surrounding tissue was anesthetized with local anesthetic. The incisionwas made with a 15 blade scalpel. The incision was deepened through the subcutaneous tissue with bovie. I divided clavipectoral fascia and entered the axilla. Using the Sentimag probe I excised the localized lymph node. This node was also hot. Specimen x-ray confirmed the presence of the lymph nodeMagseed clip. This node was sent to pathology for frozen section. Using a combination of the hand held gamma counter, blue dye and palpation, I removed the additional sentinel lymph nodes. There wereno additional palpable lymph nodes. These nodes were also sent to pathology for frozen section I then turned my attention to the left breast. The skin and surrounding tissue was anesthetized with local anesthetic. A curvilinear skin incision was made with a 15 blade scalpel in the superior breast. Subcutaneous tissues were sharply divided down to and into subcutaneous fat using Bovie cautery. I dissected towards the mag seeds. Mag seed location was confirmed throughout using the sentimag probe. I grasped the intended specimen with an Allis clamp. The entire area of tissue surrounding themag seeds was excised en bloc with the mag seeds intact. The specimen was oriented with a short stitch superiorly and a long stitch laterally, and labeled as left breast mag seed localized partial mas tectomy bracket. The specimen was inked per the vector kit. Specimen radiograph was taken and I reviewed the film myself. The clips were identified in the specimen and the mag seeds were intact. Radiologically the margins appeared adequate. I then excised 6 cavity shave margins using the bovie and oriented the new margin in with black ink I placed clips around the perimeter of the lumpectomy cavity and 2 clips in the posterior margin. The cavity was irrigated with sterile saline solution. Hemostasis was achieved and confirmed with cautery. Hemostasis was achieved with bovie. The deep dermal layer was closed with interrupted 3-0 vicryl sutures. The skin was closed with a running 4-0 monocryl subcuticular stitch. At this point the pathologist called into the room. He examined to of the more suspicious lymph nodes including the previously biopsied positive lymph node. He noted abundant mucin in both nodes but no viable tumor cells. He suggests deferring lymph node evaluation to permanent section. Given that no definitive carcinoma was noted I opted not to proceed with a complete axillary dissection. the axilla was irrigated with sterile saline solution. Hemostasis was achieved and confirmed. The axilla was closed in 3 layers. Clavipectoral fascia was reapproximated with a running 2-0 vicryl stitch. Thedeep dermal layer was closed with inverted, interrupted 3-0 vicryl stitches. The skin was closed with a running 4-0 running monocryl suture. A sterile dressing was applied. A surgical bra was used for light compression. Anesthesia was reversed and the patient was brought to the recovery room in stable condition havingtolerated the procedure well. There were no complications. 30 cc of 1% lidocaine/0.25% marcaine mixed was used throughout the case. Complications: None; patient tolerated the procedure well. Disposition: PACU - hemodynamically stable. Condition: stable [place] Node Biopsy for Breast Cancer - Left Operation performed with curative intent Yes Tracer(s) used to identify sentinel nodes in the upfront surgery (non- neoadjuvant) setting N/A Tracer(s) used to identify sentinel nodes in the neoadjuvant setting Dye and Radioactive tracer All nodes (colored or non-colored) present at the end of a dye-filled lymphatic channel were removed Yes All significantly radioactive nodes were removed Yes All palpably suspicious nodes were removed Yes Biopsy-proven positive nodes marked with clips prior to chemotherapy were identified and removed Yes Task Performed by ART TRACER or Homemaker Companion: Surgical exposure and wound closure Additional Details: posterior margin to pec Attending Attestation: A qualified resident physician was not available. Josie Carpenter [facility] Work Phone: 1(521) 575-832712-04-2024 Attending History and physical note* Josie Carpenter MD - 08/24/2024 7:09 AM EST H&P reviewed. The patient was examined and there are no changes to the H&P. Source Note - Josie Carpenter MD - 07/29/2024 1:30 PM EST Chief Complaint left breast cancer Completed neoadjuvant chemotherapy History of Present Illness Referring Provider: Yanet Rader 73 year-old non-Ashkenazi Uatsdin, female here with New left breast cancer mcT1 cN1 grade 3 IDC ER neg [place] 30% Her2 positive She is here with her . History: 1) No abnormal mammograms, breast biopsies, or breast surgeries. 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 Bilateral screening mammogram. Scattered fibroglandular tissue. Right breast negative. Left breast masses and left axillary lymphadenopathy. BI- RADS 0. 4) 01/08/2024. CT chest abdomen pelvis for restaging. When compared to prior exam there is interval enlargement of multiple left axillary lymph nodes. No findings in the abdomen. 5) 01/20/2024. Left mammogram and ultrasound at [place]. Masses in the left breast confirm mammographically. Also noted on ultrasound. BI-RADS 4 6) 02/08/2024. Left ultrasound. At 11:00 10 cm from the nipple a 6 x 6 x 5 mm suspicious mass is noted. At 12:00 10 cm from the nipple a 6 x 6 x 6 mm hypoechoic mass is noted. Additionally 2 similar-appearing hypoechoic masses are seen between the 2 masses. At least 5 abnormal lymph nodes are noted.BI-RADS 4. 2 site biopsy is recommended 7) 02/08/2024 2 site left breast biopsy Left breast 11:00 10 cm from the nipple. Grade 3 invasive ductal carcinoma with mucin production. Barrel HydroMARK ER neg [place] 30% Her2 positive Left breast 10:00 2 cm from the nipple. Grade 3 invasive ductal carcinoma. 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 Butterfly HydroMARK 8) masses are noted to span at least 4 cm on mammogram. 9) 03/28/2024 bone scan negative for distant disease 10) TCHP complicated by diarrhea 11) 07/29/2024 left MG/US treatment response BIRADS 6 She presents today for further management and surgical discussion. Left shoulder injury with minimal mobility. 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 Also s/p hyst and BSO G 5 P 2, age of first delivery 24 Less than 5 years OCPs, no fertility treatments, no HRT No family history of breast or ovarian cancer. Mother with cecal cancer at 56 Review of systems A comprehensive ROS was taken on the patient intake form and reviewed with the patient. This form is scanned into the electronic medical record. Constitutional symptoms: Denies generalized fatigue. Denies weight change, fevers/chills, difficulty sleeping Eyes: Denies double vision, glaucoma, cataracts. Ear/nose/throat/mouth: Denies hearing changes, sore throat, sinus problems. Cardiovascular: No chest pain. Denies irregular heartbeat. Denies ankle swelling. Respiratory: No wheezing, cough, or shortness of breath. Gastrointestinal: No abdominal pain, No nausea/vomiting. No indigestion/heartburn. No change in bowel habits. No constipation or diarrhea. Genitourinary: No urinary incontinence. No urinary frequency. No painful urination. Musculoskeletal: No bone pain, no muscle pain, no joint pain. Integumentary: No rash. No masses. No changes in moles. No easy bruising. Neurological: No headaches. No tremors. No numbness/tingling. Psychiatric: No anxiety. No depression. Endocrine: No excessive thirst. Not too hot or too cold. Not tired or fatigued. Hematological/lymphatic: No swollen glands or blood clotting problems. No bruising. Physical exam A superintendent marine oil terminal was offered for all portions of the physical exam. The patient declined. General appearance: appears stated age, alert and oriented x 3 Head: Normocephalic, atraumatic Eyes: conjunctivae/corneas clear. Ears: External ears are normal, hearing is grossly intact. Lungs: normal breathing Heart: regular Abdomen: Soft, nontender, nondistended. Neurologic: grossly normal Lymph nodes: No cervical, supraclavicular or right axillary lymphadenopathy bilaterally. Left axilla with vague 1 cm lymph node. Previous exam: Left axilla with large [address], appears mobile. Breast: A comprehensive breast exam was performed in the seated and supine positions. Breasts are symmetrical. Bilateral nipples are everted. There are no skin changes on arm maneuvers. Bra size: 40D Right: no masses Left: no masses. Results Imaging All breast imaging personally reviewed by me. See HPI Pathology 02/08/2024 2 site left breast biopsy Left breast 11:00 10 cm from the nipple. Grade 3 invasive ductal carcinoma with mucin production. Barrel HydroMARK ER neg [place] 30% Her2 positive Left breast 10:00 2 cm from the nipple. Grade 3 invasive ductal carcinoma. 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 Butterfly HydroMARK Impression: 1) 73 year-old non-Ashkenazi Uats[place], female here with New left breast cancer mcT1 cN1 grade 3 IDC ER neg [place] 30% Her2 positive Completed TCHP 2) Co-morbidities include HTN, DM. Non-smoker 3) No family history of breast or ovarian cancer. Mother with colon cancer Plan: She is here with her . She completed neoadjuvant chemotherapy. There is good clinical and imaging response. Her cancer can be effectively treated with bracketed lumpectomy. We reviewed that lumpectomy with radiation treatment was equivalent to mastectomy in terms of overall survival and distant recurrence,with more than 20 years of follow-up data. We discussed that lumpectomy with radiation has a slightly higher local recurrence rate with no impact on overall survival. The risks of lumpectomy including bleeding, infection, and need for reexcision of margins (approximately 20%), was discussed. She was told that lumpectomy is outpatient surgery, and the postoperative recovery was discussed. She was informed that decisions regarding lumpectomy versus mastectomy would not impact need for chemotherapy. We reviewed the need for preoperative mag seed placement (bracket) as this is a nonpalpable lesion. Left axillary lymphadenopathy has significantly improved. We discussed management of the axilla. The rationale behind sentinel node biopsy was explained, including the smaller risk of lymphedema. Magseed localization can be used to ensure excision of the previously biopsied positive lymph node. Intr aoperative frozen section will be used. Complete axillary lymph node dissection will be performed for any residual disease. Additional risks of surgery, including nerve damage, were discussed. We discussed the use of a postoperative drain in the setting of complete dissection We discussed the timing of surgery, approximately 4 to 6 weeks upon completion of chemotherapy. Shaniwill be scheduled for surgery. Consent signed today. Preoperative teaching done today. She will follow-up about 2 weeks after surgery to review her pathology report. She should call with any sooner concerns. [facility] Work Phone: 1(655) 782-281312-04-2024 History and physical note* Josie Carpenter MD - 08/24/2024 7:09 AM EST H&P reviewed. The patient was examined and there are no changes to the H&P. Source Note - Josie Carpenter MD - 07/29/2024 1:30 PM EST Chief Complaint left breast cancer Completed neoadjuvant chemotherapy History of Present Illness Referring Provider: Yanet Rader 73 year-old non-Ashkenazi Uatsdin, female here with New left breast cancer mcT1 cN1 grade 3 IDC ER neg [place] 30% Her2 positive She is here with her . History: 1) No abnormal mammograms, breast biopsies, or breast surgeries. 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 Bilateral screening mammogram. Scattered fibroglandular tissue. Right breast negative. Left breast masses and left axillary lymphadenopathy. BI- RADS 0. 4) 01/08/2024. CT chest abdomen pelvis for restaging. When compared to prior exam there is interval enlargement of multiple left axillary lymph nodes. No findings in the abdomen. 5) 01/20/2024. Left mammogram and ultrasound at [facility]. Masses in the left breast confirm mammographically. Also noted on ultrasound. BI-RADS 4 6) 02/08/2024. Left ultrasound. At 11:00 10 cm from the nipple a 6 x 6 x 5 mm suspicious mass is noted. At 12:00 10 cm from the nipple a 6 x 6 x 6 mm hypoechoic mass is noted. Additionally 2 similar-appearing hypoechoic masses are seen between the 2 masses. At least 5 abnormal lymph nodes are noted.BI-RADS 4. 2 site biopsy is recommended 7) 02/08/2024 2 site left breast biopsy Left breast 11:00 10 cm from the nipple. Grade 3 invasive ductal carcinoma with mucin production. Barrel HydroMARK ER neg [place] 30% Her2 positive Left breast 10:00 2 cm from the nipple. Grade 3 invasive ductal carcinoma. 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 Butterfly HydroMARK 8) masses are noted to span at least 4 cm on mammogram. 9) 03/28/2024 bone scan negative for distant disease 10) TCHP complicated by diarrhea 11) 07/29/2024 left MG/US treatment response BIRADS 6 She presents today for further management and surgical discussion. Left shoulder injury with minimal mobility. 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 Also s/p hyst and BSO G 5 P 2, age of first delivery 24 Less than 5 years OCPs, no fertility treatments, no HRT No family history of breast or ovarian cancer. Mother with cecal cancer at 56 Review of systems A comprehensive ROS was taken on the patient intake form and reviewed with the patient. This form is scanned into the electronic medical record. Constitutional symptoms: Denies generalized fatigue. Denies weight change, fevers/chills, difficulty sleeping Eyes: Denies double vision, glaucoma, cataracts. Ear/nose/throat/mouth: Denies hearing changes, sore throat, sinus problems. Cardiovascular: No chest pain. Denies irregular heartbeat. Denies ankle swelling. Respiratory: No wheezing, cough, or shortness of breath. Gastrointestinal: No abdominal pain, No nausea/vomiting. No indigestion/heartburn. No change in bowel habits. No constipation or diarrhea. Genitourinary: No urinary incontinence. No urinary frequency. No painful urination. Musculoskeletal: No bone pain, no muscle pain, no joint pain. Integumentary: No rash. No masses. No changes in moles. No easy bruising. Neurological: No headaches. No tremors. No numbness/tingling. Psychiatric: No anxiety. No depression. Endocrine: No excessive thirst. Not too hot or too cold. Not tired or fatigued. Hematological/lymphatic: No swollen glands or blood clotting problems. No bruising. Physical exam A superintendent marine oil terminal was offered for all portions of the physical exam. The patient declined. General appearance: appears stated age, alert and oriented x 3 Head: Normocephalic, atraumatic Eyes: conjunctivae/corneas clear. Ears: External ears are normal, hearing is grossly intact. Lungs: normal breathing Heart: regular Abdomen: Soft, nontender, nondistended. Neurologic: grossly normal Lymph nodes: No cervical, supraclavicular or right axillary lymphadenopathy bilaterally. Left axilla with vague 1 cm lymph node. Previous exam: Left axilla with large [address], appears mobile. Breast: A comprehensive breast exam was performed in the seated and supine positions. Breasts are symmetrical. Bilateral nipples are everted. There are no skin changes on arm maneuvers. Bra size: 40D Right: no masses Left: no masses. Results Imaging All breast imaging personally reviewed by me. See [facility] Pathology 02/08/2024 2 site left breast biopsy Left breast 11:00 10 cm from the nipple. Grade 3 invasive ductal carcinoma with mucin production. Barrel HydroMARK ER neg [place] 30% Her2 positive Left breast 10:00 2 cm from the nipple. Grade 3 invasive ductal carcinoma. 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 Butterfly HydroMARK Impression: 1) 73 year-old non-Ashkenazi Uatsdin, female here with New left breast cancer mcT1 cN1 grade 3 IDC ER neg NJ 30% Her2 positive Completed TCHP 2) Co-morbidities include HTN, DM. Non-smoker 3) No family history of breast or ovarian cancer. Mother with colon cancer Plan: She is here with her . She completed neoadjuvant chemotherapy. There is good clinical and imaging response. Her cancer can be effectively treated with bracketed lumpectomy. We reviewed that lumpectomy with radiation treatment was equivalent to mastectomy in terms of overall survival and distant recurrence,with more than 20 years of follow-up data. We discussed that lumpectomy with radiation has a slightly higher local recurrence rate with no impact on overall survival. The risks of lumpectomy including bleeding, infection, and need for reexcision of margins (approximately 20%), was discussed. She was told that lumpectomy is outpatient surgery, and the postoperative recovery was discussed. She was informed that decisions regarding lumpectomy versus mastectomy would not impact need for chemotherapy. We reviewed the need for preoperative mag seed placement (bracket) as this is a nonpalpable lesion. Left axillary lymphadenopathy has significantly improved. We discussed management of the axilla. The rationale behind sentinel node biopsy was explained, including the smaller risk of lymphedema. Magseed localization can be used to ensure excision of the previously biopsied positive lymph node. Intr aoperative frozen section will be used. Complete axillary lymph node dissection will be performed for any residual disease. Additional risks of surgery, including nerve damage, were discussed. We discussed the use of a postoperative drain in the setting of complete dissection We discussed the timing of surgery, approximately 4 to 6 weeks upon completion of chemotherapy. Marcinll be scheduled for surgery. Consent signed today. Preoperative teaching done today. She will follow-up about 2 weeks after surgery to review her pathology report. She should call with any sooner concerns. [facility] Work Phone: 1(288) 809-963212-02-2024 Hospital Discharge instructions* Discharge Instructions* SAMUEL Roca - 08/22/2024 10:49 AM EST Post procedure care reviewed with patient, ok to resume normal activity with no restrictions. Patient verbalized understanding and will follow up surgery as planned. Surgery scheduled for Thursday08/24/24. [facility] Work Phone: 1(750) 245-428711-18-2024 History of Present illness Narrative* Brenda Cortes MD - 08/08/2024 3:30 PM EST Patient: Marilia Guzman Date of : 1950 Chief Complaint/Active Symptoms: Marilia Guzman is a 74 y.o. female who returns today for cardiac follow-up. Here for follow-up of treatment. Started having edema with cycle 4. Now getting edema if she is either seated too long or standing too long. Initially it would resolve with leg elevation but now has some edema in the right leg that persists despite leg elevation. Has been eating more canned and salty foods due to nausea and fatigue (not wanting to cook). Had a lot of diarrhea with the last cycle t hat led to an ER visit for low magnesium (1.1) and generalized weakness. Has some fatigue and REES without orthopnea or PND. No chest pain or discomfort. No palpitations, dizziness or lightheadedness. Frustrated by leg swelling. Cancer Diagnosis: Left breast cancer, ER negative, NJ+ 30%, HER2+ Oncologist: Josie Yun Treatment: TCHP, completed 6 cycles 07/18/24 Cancer Diagnosis #2: CLL / SLL - b lymphocytes - CD% and 23 + Oncologist: Chava Hebert Treatment: Observation at present. Review of Systems Constitutional: Positive for fatigue. HENT: Negative for congestion. Respiratory: Positive for shortness of breath. Negative for cough, choking, wheezing and stridor. Cardiovascular: Positive for leg swelling. Negative for chest pain and palpitations. Gastrointestinal: Positive for diarrhea and nausea. Endocrine: Negative. Genitourinary: Negative. Musculoskeletal: Positive for arthralgias. Neurological: Negative. Psychiatric/Behavioral: Negative. All other systems reviewed and are negative. Objective: Vitals: 08/08/24 1527 BP: 110/69 Pulse: 100 Resp: 16 Temp: 36 C (96.8 F) SpO2: 100% Vitals: 08/08/24 1527 Weight: 59.1 kg (130 lb 4.7 oz) Allergies: Allergies Allergen Reactions Aluminum Rash Rash under arms Nickel Dermatitis Allergy to nickel and aluminium Medications: Current Outpatient Medications Medication Instructions bisacodyl (DULCOLAX) 10 mg, oral, Daily PRN, Do not crush, chew, or split. diphenoxylate-atropine (LomotiL) 2.5-0.025 mg tablet 1 tablet, oral, 4 times daily PRN empagliflozin (JARDIANCE) 25 mg furosemide (LASIX) 20 mg, oral, Daily PRN lidocaine-prilocaine (Emla) 2.5-2.5 % cream Apply topically 1 time if needed for mild pain (1 - 3) (30-60 minutes prior to blood draw from port) for up to 1 dose. losartan-hydrochlorothiazide (Hyzaar) 50-12.5 mg tablet 1 tablet, Daily magnesium chloride 34 mg, oral, Daily meloxicam (MOBIC) 15 mg, Daily metFORMIN (GLUCOPHAGE) 500 mg, 3 times daily ondansetron (ZOFRAN) 8 mg, oral, Every 8 hours PRN pantoprazole (PROTONIX) 40 mg, oral, Daily, Do not crush, chew, or split. potassium chloride (Klor-Con) 20 mEq packet 20 mEq, oral, Daily simvastatin (ZOCOR) 20 mg, Nightly Physical Examination: GENERAL: Well developed, well nourished, in no acute distress. HEENT: NC AT, EOMI with anicteric sclera NECK: Supple, no JVD, no bruit. CHEST: Symmetric and nontender. LUNGS: Clear to auscultation bilaterally, normal respiratory effort. HEART: PMI is nondisplaced. RRR with normal S1 and S2, no S3, no mumur or rub. No carotid or abdominal bruits ABDOMEN: Soft, NT, ND without palpable organomegaly or bruits EXTREMITIES: Warm with good color, no clubbing or cyanosis. There is no edema noted. PERIPHERAL VASCULAR: Pulses present and equally palpable; 2+ throughout. MUSCULOSKELETAL: NEURO/PSYCH: Alert and oriented times three with approppriate behavior and responses. Nonfocal motor examination with normal gait and ambulation Lymph: No significant palpable lymphadenopathy Skin: no rash or lesions on exposed skin or reported. Lab: CBC: Lab Results Component Value Date WBC 7.8 07/25/2024 RBC 2.73 (L) 07/25/2024 HGB 9.6 (L) 07/25/2024 HCT 28.2 (L) 07/25/2024 PLT 130 (L) 07/25/2024 CMP: Lab Results Component Value Date NA 139 07/25/2024 K 3.0 (L) 07/25/2024 CL 102 07/25/2024 CO2 24 07/25/2024 BUN 11 07/25/2024 CREATININE 0.79 07/25/2024 GLUCOSE 106 (H) 07/25/2024 CALCIUM 8.5 (L) 07/25/2024 Magnesium: No results found for: MG Lipid Profile: No results found for: CHLPL, TRIG, HDL, LDLCALC, LDLDIRECT TSH: No results found for: TSH BNP: Lab Results Component Value Date BNP 15 05/13/2024 PT/INR: Lab Results Component Value Date PROTIME 10.2 03/22/2024 INR 0.9 03/22/2024 HgBA1c: No results found for: HGBA1C BMP: Lab Results Component Value Date NA 139 07/25/2024 NA 138 07/15/2024 NA 140 06/24/2024 K 3.0 (L) 07/25/2024 K 3.5 07/15/2024 K 3.9 06/24/2024 CL 102 07/25/2024 CL 102 07/15/2024 CL 109 (H) 06/24/2024 CO2 24 07/25/2024 CO2 26 07/15/2024 CO2 23 06/24/2024 BUN 11 07/25/2024 BUN 20 07/15/2024 BUN 19 06/24/2024 CREATININE 0.79 07/25/2024 CREATININE 0.77 07/15/2024 CREATININE 0.57 06/24/2024 Cardiac Enzymes: Lab Results Component Value Date TROPHS 4 05/13/2024 Hepatic Function Panel: Lab Results Component Value Date ALKPHOS 111 07/25/2024 ALT 13 07/25/2024 AST 21 07/25/2024 PROT 5.5 (L) 07/25/2024 BILITOT 0.6 07/25/2024 Diagnostic Studies: Transthoracic Echo Complete Result Date: 03/23/2024 [facility], [address] [place] [address], [facility] [address] [address] and TRANSTHORACIC ECHOCARDIOGRAM REPORT Patient Name: MARILIA Chio Physician: [id number] Shelby MD Study Date: 03/23/2024 Ordering Provider: [id number] DIMA CAGE MRN/PID: [id number]: Nurse: Date of /Age: 9 1950 / 73 years Research Lab Assistant: Lina Andrew RDCS Gender: F Additional Staff: Height: 157.48 cm Admit Date: Weight: 59.87 kg Admission Status: Outpatient BSA / BMI: 1.60 m2 / 24.14 kg/m2 Blood Pressure: 121/81 mmHg Department Location: [facility] Study Type: TRANSTHORACIC ECHO (TTE) COMPLETE Diagnosis/ICD: Encounter for antineoplastic chemotherapy-Z51.11 Indication: Pre chemotherapy echo CPT Code: Echo Complete w Full Doppler-[id number] Patient History: Pertinent History: Breast CA. Study Detail: The following Echo studies were performed: 2D, M-Mode, Doppler and color flow. PHYSICIAN INTERPRETATION: Left Ventricle: The left ventricular systolic function is normal, with a visually estimated ejection fraction of 60-65%. There are no regional wall motion abnormalities. The left ventricular cavity size is normal. Spectral Doppler shows an impaired relaxation pattern of left ventricular diastolic filling. LeftAtrium: The left atrium is upper limits of normal in size. Right Ventricle: The right ventricle is normal in size. There is normal right ventricular global systolic function. Right Atrium: The right atrium is normal in size. Aortic Valve: The aortic valve is trileaflet. There is no evidence of aortic valve regurgitation. The peak instantaneous gradient of the aortic valve is 11.0 mmHg. Mitral Valve: The mitral valve is mildly thickened. There is moderate mitral valve prolapse of the anterior and posterior leaflets. There is mild mitral valve regurgitation. Mitral annular dysjunction is present. Tricuspid Valve: The tricuspid valve is structurally normal. There is trace tricuspid regurgitation. The Doppler estimated RVSP is within normal limits at 26.1 mmHg. Pulmonic Valve: The pulmonic valve is structurally normal. There is physiologic pulmonic valve regurgitation. Pericardium: There jing trivial pericardial effusion. Aorta: The aortic root is normal. There is no dilatation of the aortic root. CONCLUSIONS: 1. The left ventricular systolic function is normal, with a visually estimated ejection fraction of 60-65%. 2. Spectral Doppler shows an impaired relaxation pattern of left ventricular diastolic filling. 3. There is normal right ventricular global systolic function. 4. There is moderate mitral valve prolapse. 5. There is mild mitral valve regurgitation. 6. RVSP within normal limits. QUANTITATIVE DATA SUMMARY: 2D MEASUREMENTS: Normal Ranges: LAs: 3.61 cm (2.7-4.0cm) IVSd: 0.60 cm (0.6-1.1cm) LVPWd: 0.95 cm (0.6-1.1cm) LVIDd: 4.09 cm (3.9-5.9cm) LVIDs: 3.12 cm LV Mass Index: 57.7 g/m2 LV % FS 23.7 % LA VOLUME: Normal Ranges: LA Vol A4C: 43.1 ml (22+/-6mL/m2) LA Vol A2C: 56.8 ml LA Vol Index A4C: 26.9 ml/m2 LA Vol Index A2C: 35.4 ml/m2 LA Area A4C: 17.0 cm2 LA Major [place] A4C: 5.7 cm LA Vol A4C: 39.9 ml LA Vol A2C: 53.3 ml RA VOLUME BY A/L METHOD: Normal Ranges: RA VolA4C: 22.4 ml (8.3-19.5ml) RA Vol Index A4C: 14.0 ml/m2 RA Area A4C: 11.0 cm2 RA Major [place] A4C: 4.6cm M-MODE MEASUREMENTS: Normal Ranges: Ao Root: 3.20 cm (2.0-3.7cm) LAs: 3.60 cm (2.7-4.0cm) AORTA M EASUREMENTS: Normal Ranges: Asc Ao, d: 3.10 cm (2.1-3.4cm) Ao Arch: 2.70 cm (2.0-3.6cm) LV SYSTOLICFUNCTION BY 2D PLANIMETRY (MOD): Normal Ranges: EF-A4C View: 60 % (>=55%) EF-A2C View: 68 % EF-Biplane: 65 % EF-Visual: 63 % LV EF Reported: 63 % LV DIASTOLIC FUNCTION: Normal Ranges: MV Peak E: 0.67 m/s (0.7- 1.2 m/s) MV Peak A: 0.87 m/s (0.42-0.7 m/s) E/A Ratio: 0.77 (1.0-2.2) MV e' 0.088 m/s (>8.0) MV lateral e' 0.11 m/s MV medial e' 0.06 m/s MV A Dur: 137.01 msec E/e' Ratio: 7.65 (<8.0) PulmV Sys Nilson: 49.67 cm/s PulmV Garcia Nilson: 32.05 cm/s PulmV S/D Nilson: 1.55 PulmV A Revs Nilson: 24.34 cm/s PulmV A Revs Dur: 137.01 msec MITRAL VALVE: Normal Ranges: MV DT: 263 msec (150-240msec) AORTIC VALVE: Normal Ranges: AoV Vmax: 1.66 m/s (<=1.7m/s) AoV Peak P.0 mmHg (<20mmHg) LVOT MaxVel: 1.32 m/s (<=1.1m/s) LVOT VTI: 28.79 cm LVOT Diameter: 2.11 cm (1.8-2.4cm) AoV Area,Vmax: 2.79 cm2 (2.5-4.5cm2) AORTIC INSUFFICIENCY: AI Vmax: 3.69 m/s AI Half-time: 722 msec AI Decel Time: 2490 msec AI Decel Rate: 149.16 cm/s2 RIGHT VENTRICLE: RV Basal 2.70 cm RV Mid 2.00 cm RV Major 5.8 cm TAPSE: 17.0 mm RV s' 0.10 m/s TRICUSPID VALVE/RVSP: Normal Ranges: Peak TR Velocity: 2.40 m/s RV Syst Pressure: 26.1 mmHg (< 30mmHg) IVC Diam: 2.00 cm PULMONIC VALVE: Normal Ranges: PV Accel Time:104 msec (>120ms) PV Max Nilson: 0.8 m/s (0.6-0.9m/s) PV Max P.4 mmHg Pulmonary Veins: PulmV A Revs Dur: 137.01 msec PulmV A Revs Nilson: 24.34 cm/s PulmV Garcia Nilson: 32.05 cm/s PulmV S/D Nilson: 1.55 PulmV Sys Nilson: 49.67 cm/s 10130 Linus Shelby MD Electronically signed on 03/23/2024 at 6:06:22 PM Final No nuclear medicine results found for the past 12 months Radiology: Vascular US lower extremity venous duplex right (Results Pending) ASSESSMENT Problem List Items Addressed This Visit Malignant neoplasm of upper-inner quadrant of left breast in female, estrogen receptor negative Encounter for monitoring cardiotoxic drug therapy Relevant Orders Troponin I, High Sensitivity Follow Up In Cardiology Edema of right lower leg - Primary Relevant Orders Vascular US lower extremity venous duplex right Basic Metabolic Panel B-Type Natriuretic Peptide Follow Up In Cardiology Other Visit Diagnoses Hypokalemia Relevant Medications furosemide (Lasix) 20 mg tablet potassium chloride (Klor-Con) 20 mEq packet Other Relevant Orders Basic Metabolic Panel Hypomagnesemia Relevant Medications magnesium chloride 64 mg magnesium tablet Other Relevant Orders Magnesium Shortness of breath Relevant Orders B-Type Natriuretic Peptide Follow Up In Cardiology PLAN 1. Left breast cancer. Encounter for monitoring cardiotoxic drug therapy. Patient has completed herTCHP and has minor insignificant change in her LV ejection fraction. There is overlap of the numbers between her first and follow- up echocardiogram and strain remains normal. While she has this lowerextremity edema now it is persisting well by itself is not necessarily an indicator for heart failure it does make me suspicious someone to follow her more closely. Her symptoms of fatigue and shortness of breath may just be related to her chemotherapy and anemia but I cannot exclude a component ofheart failure. I have requested after we start drug treatment follow-up electrolytes as well as a BN peptide and troponin. 2. Right leg edema. This appears to be dependent edema and has been present intermittently for sometime but now is persisting. I have requested an ultrasound to rule out DVT with her cancer diagnosis and we have talked about symptomatic control with compression stockings and will start furosemide with potassium and magnesium supplementation. Once the edema is resolved would use the furosemide asneeded but because she has resting hypokalemia would continue her potassium and magnesium supplementation. 3. Hypokalemia and hypomagnesemia. She will be able to hold onto potassium if her magnesium is low.She had to go to the emergency room with a low magnesium level so we started oral magnesium chloride rather than oxide as it is less likely to cause or contribute to her diarrhea. It is also better absorbed and easier to restore normal magnesium levels. She is not absorbing her potassium chloride tablets. So we have requested the packets that can be dissolved in water. She can also increase foodsthat are high in potassium including bananas and cantaloupe 4. Shortness of breath. As discussed above I think with her description currently is more fatigue and anemia than anything else but will await the results of her follow-up labs and BN peptide. I will see her back in 1 month for follow-up and if her test results are abnormal we will bring radhaack sooner if clinically appropriate. documented [facility] Work Phone: 1(525) 530-438111-18-2024 Instructions* Patient Instructions* Brenda Cortes MD - 08/08/2024 3:30 PM EST Get knee high support stockings - buy 1 size larger than your leg size calls for Stop magnesium oxide Start magnesium chloride - slow mag (get from [employer]) Furosemide 20 mg daily as needed for edema Potassium packets 20 meq daily. Labs in 7-10 days Get ultrasound of leg to rule out blood clot. documented in [facility] Work Phone: 1(405) 689-567911-08-2024 History of Present illness Narrative* Josie Carpenter MD - 07/29/2024 1:30 PM EST Chief Complaint left breast cancer Completed neoadjuvant chemotherapy History of Present Illness Referring Provider: Yanet Rader 73 year-old non-Ashkenazi Uatsdin, female here with New left breast cancer mcT1 cN1 grade 3 IDC ER neg [place] 30% Her2 positive She is here with her . History: 1) No abnormal mammograms, breast biopsies, or breast surgeries. 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 Bilateral screening mammogram. Scattered fibroglandular tissue. Right breast negative. Left breast masses and left axillary lymphadenopathy. BI- RADS 0. 4) 01/08/2024. CT chest abdomen pelvis for restaging. When compared to prior exam there is interval enlargement of multiple left axillary lymph nodes. No findings in the abdomen. 5) 01/20/2024. Left mammogram and ultrasound at [facility]. Masses in the left breast confirm mammographically. Also noted on ultrasound. BI-RADS 4 6) 02/08/2024. Left ultrasound. At 11:00 10 cm from the nipple a 6 x 6 x 5 mm suspicious mass is noted. At 12:00 10 cm from the nipple a 6 x 6 x 6 mm hypoechoic mass is noted. Additionally 2 similar-appearing hypoechoic masses are seen between the 2 masses. At least 5 abnormal lymph nodes are noted.BI-RADS 4. 2 site biopsy is recommended 7) 02/08/2024 2 site left breast biopsy Left breast 11:00 10 cm from the nipple. Grade 3 invasive ductal carcinoma with mucin production. Barrel HydroMARK ER neg NJ 30% Her2 positive Left breast 10:00 2 cm from the nipple. Grade 3 invasive ductal carcinoma. 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 Butterfly HydroMARK 8) masses are noted to span at least 4 cm on mammogram. 9) 03/28/2024 bone scan negative for distant disease 10) TCHP complicated by diarrhea 11) 07/29/2024 left MG/US treatment response BIRADS 6 She presents today for further management and surgical discussion. Left shoulder injury with minimal mobility. 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 Also s/p hyst and BSO G 5 P 2, age of first delivery 24 Less than 5 years OCPs, no fertility treatments, no HRT No family history of breast or ovarian cancer. Mother with cecal cancer at 56 Review of systems A comprehensive ROS was taken on the patient intake form and reviewed with the patient. This form is scanned into the electronic medical record. Constitutional symptoms: Denies generalized fatigue. Denies weight change, fevers/chills, difficulty sleeping Eyes: Denies double vision, glaucoma, cataracts. Ear/nose/throat/mouth: Denies hearing changes, sore throat, sinus problems. Cardiovascular: No chest pain. Denies irregular heartbeat. Denies ankle swelling. Respiratory: No wheezing, cough, or shortness of breath. Gastrointestinal: No abdominal pain, No nausea/vomiting. No indigestion/heartburn. No change in bowel habits. No constipation or diarrhea. Genitourinary: No urinary incontinence. No urinary frequency. No painful urination. Musculoskeletal: No bone pain, no muscle pain, no joint pain. Integumentary: No rash. No masses. No changes in moles. No easy bruising. Neurological: No headaches. No tremors. No numbness/tingling. Psychiatric: No anxiety. No depression. Endocrine: No excessive thirst. Not too hot or too cold. Not tired or fatigued. Hematological/lymphatic: No swollen glands or blood clotting problems. No bruising. Physical exam A superintendent marine oil terminal was offered for all portions of the physical exam. The patient declined. General appearance: appears stated age, alert and oriented x 3 Head: Normocephalic, atraumatic Eyes: conjunctivae/corneas clear. Ears: External ears are normal, hearing is grossly intact. Lungs: normal breathing Heart: regular Abdomen: Soft, nontender, nondistended. Neurologic: grossly normal Lymph nodes: No cervical, supraclavicular or right axillary lymphadenopathy bilaterally. Left axilla with vague 1 cm lymph node. Previous exam: Left axilla with large [address], appears mobile. Breast: A comprehensive breast exam was performed in the seated and supine positions. Breasts are symmetrical. Bilateral nipples are everted. There are no skin changes on arm maneuvers. Bra size: 40D Right: no masses Left: no masses. Results Imaging All breast imaging personally reviewed by me. See HPI Pathology 02/08/2024 2 site left breast biopsy Left breast 11:00 10 cm from the nipple. Grade 3 invasive ductal carcinoma with mucin production. Barrel HydroMARK ER neg NJ 30% Her2 positive Left breast 10:00 2 cm from the nipple. Grade 3 invasive ductal carcinoma. 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 Butterfly HydroMARK Impression: 1) 73 year-old non-Ashkenazi Uatsdin, female here with New left breast cancer mcT1 cN1 grade 3 IDC ER neg NJ 30% Her2 positive Completed TCHP 2) Co-morbidities include HTN, DM. Non-smoker 3) No family history of breast or ovarian cancer. Mother with colon cancer Plan: She is here with her . She completed neoadjuvant chemotherapy. There is good clinical and imaging response. Her cancer can be effectively treated with bracketed lumpectomy. We reviewed that lumpectomy with radiation treatment was equivalent to mastectomy in terms of overall survival and distant recurrence,with more than 20 years of follow-up data. We discussed that lumpectomy with radiation has a slightly higher local recurrence rate with no impact on overall survival. The risks of lumpectomy including bleeding, infection, and need for reexcision of margins (approximately 20%), was discussed. She was told that lumpectomy is outpatient surgery, and the postoperative recovery was discussed. She was informed that decisions regarding lumpectomy versus mastectomy would not impact need for chemotherapy. We reviewed the need for preoperative mag seed placement (bracket) as this is a nonpalpable lesion. Left axillary lymphadenopathy has significantly improved. We discussed management of the axilla. The rationale behind sentinel node biopsy was explained, including the smaller risk of lymphedema. Magseed localization can be used to ensure excision of the previously biopsied positive lymph node. Intr aoperative frozen section will be used. Complete axillary lymph node dissection will be performed for any residual disease. Additional risks of surgery, including nerve damage, were discussed. We discussed the use of a postoperative drain in the setting of complete dissection We discussed the timing of surgery, approximately 4 to 6 weeks upon completion of chemotherapy. Shaniwill be scheduled for surgery. Consent signed today. Preoperative teaching done today. She will follow-up about 2 weeks after surgery to review her pathology report. She should call with any sooner concerns. [facility] Work Phone: 1(103) 415-487711-08-2024 Instructions* Patient Instructions* Marshal Sykes RN - 07/29/2024 1:30 PM EST Surgery date chosen today. Pre and post operative instructions discussed and provided in writing. Drain teaching completed today. [facility] Work Phone: 1([phone]) 532-268611-07-2024 History of Present illness Narrative* Chava Edwards MD - 07/28/2024 3:30 PM EST Cancer History: Treatment Synopsis: Accidentally discovered SLL, on cecal polyp, on routine colonoscopy in August 2016 stage IIA (mcT1 cN1 cM0) infiltrating ductal carcinoma of the left breast; Dx in 01/2024 ; Grade 3; ER negative, NJ positive (30%), HER2 positive; Completed 6 cycles of neoadjuvant TCHP at [facility]. History of present illness: The patient is a 66-year-old woman whose mother passed from metastatic CA cecum. The patient is episcopal in obtaining colonoscopies. A recent colonoscopy by you found a 4 mm sessile ascending colonic polyp, two 2 mm sigmoid colonic polyps. Histology of cecal polyp revealed dense lymphoid infiltrate consisting of small lymphocytes composed of B lymphocytes positive for CD5, CD23, and BCL-2 and neg ative for CD10 and cyclin D1. The ascending colonic polyp and sigmoid colonic polyp did not reveal any abnormalities. The patient is asymptomatic. You referred her to me for further evaluation and management. The patient had come for follow-up on 05/18/2019. The patient has returned after a hiatus of 2.5 years. Apparently the patient had a mammogram on 05/04/2019 and it revealed possible lymph node in the left axilla but there was no abnormality in the breast itself. There is a palpable lymph node in the left axilla. Since last evaluation, the patient has done reasonably well. She did have left ear infection which resolved with therapy. The patient and her had come for follow-up on January 22, 2024 regarding history of CLL/SLL the patient is asymptomatic but anxious to know results of the tests performed. History of Present Illness: ID Statement: MARILIA GUZMAN is a 71 year old Female Chief Complaint: follow-up Interval History: The patient and her had come for a follow up on 06/14/2021 regarding her history of CLL / SLL. She reports doing well and denies any symptoms such as weight loss, fevers, night sweats and GI complaints. The patient has returned after hiatus of almost 3 years on July 28, 2024 regarding history of CLL/SLL. Since last evaluation the patient underwent left knee replacement in November 2021 also had URI-like symptoms and was placed on antibiotics last fall 2022. The patient has known history of CLL. Inthe past she had presented with left axillary lymph node. Breast exam as well as mammograms did notreveal any evidence of lumps in the breast. The patient was then lost to follow-up. She now presents with lump in the left axilla. Denied history of fevers, weight loss, night sweats, chest pain, shortness of breath, nausea, vomiting, hematemesis, melena, hematochezia and hematuria. Past medical history 1. CLL 2. HTN 3. DM Past surgical history 1. Cholecystectomy 2. 3. EVER-BSO Last mammogram was 7 years ago. Last colonoscopy was 1 year ago. Review of Systems: System Review All other systems have been reviewed and are negative for complaint. Constitutional NEGATIVE: Fever, Chills, Anorexia, Weight Loss, Malaise Eyes NEGATIVE: Blurry Vision, Drainage, Diploplia, Redness, Vision Loss/ Change ENMT NEGATIVE: Nasal Discharge, Nasal Congestion, Ear Pain, Mouth Pain, Throat Pain Respiratory NEGATIVE: Dry Cough, Productive Cough, Hemoptysis, Wheezing, Shortness of Breath Cardiology NEGATIVE: Chest Pain, Dyspnea on Exertion, Orthopnea, Palpitations, Syncope Gastrointestinal NEGATIVE: Abdominal Pain, Constipation, Diarrhea, Nausea, Vomiting Comments abdominal bloating Genitourinary NEGATIVE: Discharge, Dysuria, Flank Pain, Frequency, Hematuria Musculoskeletal NEGATIVE: Decreased ROM, Pain, Swelling, Stiffness, Weakness Neurological NEGATIVE: Dizziness, Confusion, Headache, Seizures, Syncope Psychiatric NEGATIVE: Mood Changes, Anxiety, Hallucinations, Sleep Changes, Suicidal Ideas Skin NEGATIVE: Mass, Pain, Pruritus, Rash, Ulcer Endocrine NEGATIVE: Heat Intolerance, Cold Intolerance, Sweat, Polyuria, Thirst Hematologic/Lymph NEGATIVE: Anemia, Bruising, Easy Bleeding, Night Sweats, Petechiae Allergic/Immunologic NEGATIVE: Anaphylaxis, Itchy/ Teary Eyes, Itching, Sneezing, Swelling Breast NEGATIVE: Pain, Mass, Discharge, Nipple Itching, Gynecomastia Allergies and Intolerances: Intolerances: false nail adhesive: Environment, Unknown, Active Outpatient Medication Profile: * Patient Currently Takes Medications as of 14-Jun-2021 13:56 documented in Structured Notes Vitamin D3 2000 intl units oral capsule : Last Dose Taken: , 1 cap(s) orally once a day Hurst-3: Last Dose Taken: , orally B Complex 50: Last Dose Taken: meloxicam 15 mg oral tablet: Last Dose Taken: , 1 tab(s) orally once a day metFORMIN 500 mg oral tablet, extended release: Last Dose Taken: , orally 3 times a day Jardiance 25 mg oral tablet: Last Dose Taken: , 1 tab(s) orally once a day (in the morning) lisinopril-hydrochlorothiazide 20 mg-12.5 mg oral tablet: Last Dose Taken: , 0.5 tab(s) orally oncea day Medical History: DM (diabetes mellitus): ICD-10: E11.9, Status: Active HTN (hypertension): ICD-10: I10, Status: Active CLL (chronic lymphocytic leukemia): ICD-10: C91.90, Status: Active Surg History: S/P EVER-BSO: ICD-10: Z90.710, Status: Active History of section: ICD-10: Z98.891, Status: Active S/P cholecystectomy: ICD-10: Z90.49, Status: Active Family History: Cancer, colon (Mother Age Unknown) Social History: Social Substance History: Social History denies smoking, alcohol and drug use Smoking Status never smoker Tobacco Use denies Alcohol Use denies Drug Use denies Additional History The patient is a 68 year old female who is with 2 children. 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 No history of tobacco, alcohol, or drug abuse. (1) Performance: ECOG Performance Status: 0 Fully Active Vitals and Measurements: Vitals: Temp: 36.5 HR: 73 RR: 18 BP: 112/76 SPO2%: 99 Measurements: HT(cm): 158.1 WT(kg): 64.6 BSA: 1.68 BMI: 25.8 Physical Exam: Constitutional: Well developed, awake/alert/oriented x3, no distress, alert and cooperative Eyes: PERRL, EOMI, clear sclera ENMT: mucous membranes moist, no apparent injury, no lesions seen Head/Neck: Neck supple, no apparent injury, thyroid without mass or tenderness, No JVD, trachea midline, no bruits Respiratory/Thorax: Patent airways, CTAB, normal breath sounds with good chest expansion, thorax symmetric Cardiovascular: Regular, rate and rhythm, no murmurs, 2+ equal pulses of the extremities, normal S 1and S 2 Gastrointestinal: Nondistended, soft, non-tender, no rebound tenderness or guarding, no masses palpable, no organomegaly, +BS, no bruits Genitourinary: No Discharge, vesicles or other abnormalities Musculoskeletal: ROM intact, no joint swelling, normal strength Extremities: normal extremities, no cyanosis edema, contusions or wounds, no clubbing Neurological: alert and oriented x3, intact senses, motor, response and reflexes, normal strength Breast: No masses, tenderness, no discharge or discoloration Lymphatic: Palpable left axial lymph node. Psychological: Appropriate mood and behavior Skin: Warm and dry, no lesions, no rashes Lab Results: Assessment and Plan: 1. CLL / SLL Polyp discovered on a colonoscopy. The physical exam is pertinent for a palpable left axial lymph node; otherwise, the physical exam was within normal limits. I reviewed the lab data with the patient. CBC obtained on 05/13/2021 revealed WBC 7.1, HGB 14.0, Continue to be followed clinically. Return in 3 months. The patient has returned after hiatus of almost 3 years on December 25, 2023 regarding history of CLL/SLL. Since last evaluation the patient underwent left knee replacement in November 2021 also had URI-like symptoms and was placed on antibiotics last fall 2022. The patient has known history of CLL. In the past she had presented with left axillary lymph node. Breast exam as well as mammograms did not reveal any evidence of lumps in the breast. The patient was then lost to follow-up. She now presents with lump in the left axilla. Denied history of fevers, weight loss, night sweats, chest pain, shortness of breath, nausea, vomiting, hematemesis, melena, hematochezia and hematuria. Physical examination revealed 2 palpable lymph nodes in the left axilla. The larger 1 in the anterior axillary line measured 1 inch x 1 inch and the 1 in mid axillary line measured 1 and half centimeter by 1 and half centimeters. I had a detailed discussion with the patient explained to her that these most likely are manifestations of underlying CLL/SLL. I have recommended a mammogram as well as CT scan of chest abdomen and pelvis. Patient to return in 4 weeks. The patient and her had come for follow-up on 2023 regarding history of CLL/SLL.Mammogram/ultrasound on January 20, 2024 revealed cluster of multiple breast masses BI-RADS Category 4. Had a detailed discussion with the patient and her explained to them that this all could be manifestations of underlying CLL/SLL. However, it would be prudent to rule out underlying primary breast CA. 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 2. Bloating I have recommended Gas-x three times a day. 3. HTN Continue lisinopril 20 mg/hydrochlorothiazide 12.5 mg p.o. daily 4. DM Continue Metformin 500 mg p.o. 3 times daily Jardiance 25 mg p.o. daily. 5. The patient is to return in six months. documented in this [facility] Work Phone: 1(993) 889-905711-07-2024 NoteED Procedure Charges Entered On: 07/28/2024 0:43 EST Performed On: 07/28/2024 0:42 EST by Fatou Burns [facility] Ther. IV Inf - Int [id number] : 1 Fatou Burns - 07/28/2024 0:49 EST ED Level Override ED Override Comment : CT+LAB+ECG+IVBP Lili Smyth - 07/28/2024 4:34 EST ED Visit Level : [id number] w/25 [facility] Burns [facility] Nursing Discharge Summary Entered On: 07/26/2024 20:05 EST Performed On: 07/26/2024 20:00 EST by Beronica Daley RN [place] Information [id number] ED IV's : Discontinue ED IV Site Assessment : Yes, Completed in IView ED Vitals Completed : Yes ED Final Assessment Completed : Yes ED Progress Note Completed : Yes Complete all PRN/Pain response forms? : N/A ED Disassociate Patient from Monitor : Yes Updated Depart Time : Yes Mode of Discharge : Ambulatory Discharge Transportation : Private vehicle ED Belongings sent w patient [id number] : Yes Valuables Complete : Not applicable Beronica Daley RN - 07/26/2024 20:05 EST Education Instructions given to : Patient TeachBack Methodology : TeachBack, Explanation, Printed Material Barriers to Learning : None evident Beronica Daley RN - 07/26/2024 20:05 EST Post-Hospital Education Adult Grid Diagnostic Results : Verbalizes understanding Disease Process : Verbalizes understanding Importance of Follow-Up Visits : Verbalizes understanding Plan of Care : Verbalizes understanding When to Call Health Care Provider : Verbalizes understanding Beronica Daley RN - 07/26/2024 20:05 EST ED Assistance Summary Assistance Given? : No Beronica Daley RN - 07/26/2024 20:05 EST [facility]11-04-2024 History of Present illness Narrative* Dima Cage MD - 07/25/2024 8:30 AM EST Images from the original note were not included. Breast Medical Oncology Clinic Location: [facility] Visit Type: Follow-up Visit Oncologic History: 01/08/2024: Screening Mammogram: New grouped irregular masses in the deep central superior left breast. There is an enlarged dense left axillary lymph nodes. No findings in the right breast. 01/08/2024: CT chest abdomen pelvis obtained for monitoring of CLL/SLL. There are scattered groundglass micronodularity's of the bilateral lung bases unchanged since 2016. Enlarged left axillary lymphnodes new compared to August 2016. Stable subcentimeter lesion of the liver with no new worrisomehepatic lesions. 01/20/2024: Left breast ultrasound shows multiple hypoechoic masses 12:00 15 cm from the nipple correlating with the mammogram findings. 02/08/2024: Left breast 11:00 10 cm from the nipple biopsy shows invasive ductal carcinoma grade 3, ER negative, NJ positive (30%) and HER2 positive. Left breast 12:00 10 cm from the nipple biopsy shows invasive ductal carcinoma grade 3, ER negative, NJ positive (5 to 10%) HER2 positive. Axillary lymph node biopsy shows metastatic carcinoma with mucin production. 03/22/2024: Bone scan: Foci of increased radiotracer uptake in the frontal bone of the calvarium. 04/04/2024: Initiated neoadjuvant TCHP 04/15/2024: CT head shows no intracranial pathology or evidence of calvarial pathology. 07/18/24: C6 of neoTCHP Subjective: Interval History Patient presents today for follow-up visit she is accompanied by her . Last cycle went ok- less of diarrhea. Noted dry eyes. In general feels weak since the completion ofchemotherapy. Tearful thinking about the remainder of her treatment course. Gynecologic History: Age of first menses: 17 years old Age of last menses: 51 years old ; FLB at age 24 Post-menopausal She did breastfeed 4-6 weeks Uterus/Ovaries: S/p TAHBSO- fibroid tumors and ovarian cysts OCP: 3 years HRT: No Pertinent Family history: Breast Cancer: None Ovarian Cancer: None Pancreatic Cancer: None Other: Mother- cecal cancer Social History Marilia Guzman reports that she has never smoked. She has never used smokeless tobacco. She reports current alcohol use. She reports no history of drug use. ROS: Review of Systems All other systems reviewed and are negative. Physical Examination: BP 99/65 Pulse 89 Temp 36.1 C (97 F) (Temporal) Resp 16 Wt 56.1 kg (123 lb 10.9 oz) SpO2 98% BMI 22.16 kg/m Physical Exam Vitals and nursing note reviewed. Constitutional: General: She is not in acute distress. Appearance: Normal appearance. She is not toxic-appearing. HENT: Head: Normocephalic and atraumatic. Eyes: Conjunctiva/sclera: Conjunctivae normal. Neck: Comments: There is a bony protrusion (sternoclaviclar) which patient feels is new. Cardiovascular: Rate and Rhythm: Normal rate. Pulmonary: Effort: Pulmonary effort is normal. No respiratory distress. Abdominal: General: Abdomen is flat. Palpations: Abdomen is soft. Musculoskeletal: General: No swelling. Normal range of motion. Cervical back: Normal range of motion. Skin: General: Skin is warm and dry. Neurological: Mental Status: She is alert. Psychiatric: Mood and Affect: Mood normal. Breast Examination: . Left breast: No masses, skin or nipple changes Right breast: No masses, skin or nipple changes Axillary: 3 discrete LNs, largest measuring about 3-4 cm. On 04/19/2024 lymph nodes are less prominent there is 1 most prominent lymph node measuring about 3 cm. 05/16/24: Several firm discrete LNs, largest measuring about 2.[address] a lot smaller 06/27/24: LN measures about 1.5-2 cm 07/25/24: Unchanged 2-3 1.5 cm LNs ECOG Performance Status: [x] 0 Fully active, able to carry on all pre-disease performance without restriction [] 1 Restricted in physically strenuous activity but ambulatory and able to carry out work of a light or sedentary nature, e.g., light house work, office work [] 2 Ambulatory and capable of all selfcare but unable to carry out any work activities; up and about more than 50% of waking hours [] 3 Capable of only limited selfcare; confined to bed or chair more than 50% of waking hours [] 4 Completely disabled; cannot carry on any selfcare; totally confined to bed or chair [] 5 Results: Labs: Reviewed Lab Results Component Value Date WBC 17.1 (H) 07/15/2024 HGB 10.1 (L) 07/15/2024 HCT 29.6 (L) 07/15/2024 MCV 103 (H) 07/15/2024 PLT 162 07/15/2024 Chemistry Lab Results Component Value Date/Time NA 138 07/15/2024 1537 K 3.5 07/15/2024 1537 CL 102 07/15/2024 1537 CO2 26 07/15/2024 1537 BUN 20 07/15/2024 1537 CREATININE 0.77 07/15/2024 1537 Lab Results Component Value Date/Time CALCIUM 8.5 (L) 07/15/2024 1537 ALKPHOS 99 07/15/2024 1537 AST 17 07/15/2024 1537 ALT 12 07/15/2024 1537 BILITOT 0.9 07/15/2024 1537 Imaging: Reviewed above in Onc History Pathology: Reviewed above in Onc History Assessment: At least Clinical prognostic stage IIA (mcT1 cN1 cM0) infiltrating ductal carcinoma of the left breast; Dx in 01/2024 ; Grade 3; ER negative, NJ positive (30%), HER2 positive; Completed 6 cycles of neoadjuvant TCHP Marilia Guzman is a very pleasant 74 y.o. postmenopausal female with newly diagnosed breast cancer with history of CLL managed expectantly. Completed neoadjuvant TCHP x 6. Will be seeing her surgeon next week. Plan: Surgical Plan: I have notified Dr. Carpenter of her upcoming end of treatment. Apt in place Additional biopsy: No further biopsy indicated Radiation Plan: Post-op referral Additional staging scans/DEXA/echo: Baseline staging scans reviewed. She will require echocardiogram every 3 months while receiving HER2 directed therapy. She is established with oncocardiology Additional Path info (i.e Ki67, PDL1): Not indicated Gene assays: Not indicated Systemic treatment plan: If she has a complete response she would complete a total of one year of trastuzumab and pertuzumab; if she has residual disease we will switch to T-DM1. Intent: Curative Clinical trial: Not eligible for our current trials Endocrine therapy: Briefly discussed today in light of NJ positive. HER2 treatment: As above Targeted agents: not indicated Chemotherapy: As discussed above BMA: Will discuss at future visit. Access: Mediport in place Supportive meds: Anti-emetics and EMLA cream sent to pharmacy Genetic testing: Apt in place Fertility preservation: Not indicated Other active problems/orders: Lower extremity swelling: Localized to her feet. Low suspicion for DVT. I believe this is related to recent change in her blood pressure medication and coming off of hydrochlorothiazide. She will reach out to her PCP to get this resumed. I will also notify her cardiology team. Sternoclavicular prominence: Per patient new, US unremarkable. Will monitor. Likely normal anatomy now pronounced since weight loss. CLL: managed expectantly with Dr. Edwards Cranial prosthesis prescription Surveillance plan: On active treatment Follow-up: 3 weeks post-op Marilia Guzman expressed understanding of the plan outlined above. Marilia Guzman had ample time toask questions. Marilia Guzman understands she can contact us at any time should she have additionalquestions or issues arise in the interim. Dima Cage MD Breast Medical Oncology [facility] [facility] Portions of this note were dictated utilizing voice recognition software. documented in this [facility] Work Phone: 1(244) 560-620110-07-2024 History of Present illness Narrative* Dima Cage MD - 06/27/2024 8:50 AM EDT Images from the original note were not included. Breast Medical Oncology Clinic Location: [facility] Visit Type: Follow-up Visit Oncologic History: 01/08/2024: Screening Mammogram: New grouped irregular masses in the deep central superior left breast. There is an enlarged dense left axillary lymph nodes. No findings in the right breast. 01/08/2024: CT chest abdomen pelvis obtained for monitoring of CLL/SLL. There are scattered groundglass micronodularity's of the bilateral lung bases unchanged since 2016. Enlarged left axillary lymphnodes new compared to August 2016. Stable subcentimeter lesion of the liver with no new worrisomehepatic lesions. 01/20/2024: Left breast ultrasound shows multiple hypoechoic masses 12:00 15 cm from the nipple correlating with the mammogram findings. 02/08/2024: Left breast 11:00 10 cm from the nipple biopsy shows invasive ductal carcinoma grade 3, ER negative, NJ positive (30%) and HER2 positive. Left breast 12:00 10 cm from the nipple biopsy shows invasive ductal carcinoma grade 3, ER negative, NJ positive (5 to 10%) HER2 positive. Axillary lymph node biopsy shows metastatic carcinoma with mucin production. 03/22/2024: Bone scan: Foci of increased radiotracer uptake in the frontal bone of the calvarium. 04/04/2024: Initiated neoadjuvant TCHP 04/15/2024: CT head shows no intracranial pathology or evidence of calvarial pathology. Subjective: Interval History Patient presents today for follow-up visit she is accompanied by her . She reports that she has had chronic issues with swelling of her feet that comes and goes but the last 3 days has had persistent swelling of her feet. Reports that a week ago her hydrochlorothiazide was discontinued by her PCP. She denies any shortness of breath or orthopnea. She denies any swelling above her ankles or into her calves. She has no pain in her legs. She also noticed a new right bony protrusion around the medial aspect of her right clavicle near her port. It is nontender. She is tearful as she worries this is related to the breast cancer. She has been struggling with finding the right balance betweendiarrhea and constipation. She had more of constipation with her last cycle where she did not have a bowel movement for 3 days. 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 She continues tohave great response in the index mass. Gynecologic History: Age of first menses: 17 years old Age of last menses: 51 years old ; FLB at age 24 Post-menopausal She did breastfeed 4-6 weeks Uterus/Ovaries: S/p TAHBSO- fibroid tumors and ovarian cysts OCP: 3 years HRT: No Pertinent Family history: Breast Cancer: None Ovarian Cancer: None Pancreatic Cancer: None Other: Mother- cecal cancer Social History Marilia Guzman reports that she has never smoked. She has never used smokeless tobacco. She reports current alcohol use. She reports no history of drug use. ROS: Review of Systems All other systems reviewed and are negative. Physical Examination: BP 112/68 Pulse 87 Temp 36.3 C (97.3 F) (Temporal) Resp 16 Wt 58.6 kg (129 lb 3 oz) SpO2 98% BMI 23.15 kg/m Physical Exam Vitals and nursing note reviewed. Constitutional: General: She is not in acute distress. Appearance: Normal appearance. She is not toxic-appearing. HENT: Head: Normocephalic and atraumatic. Eyes: Conjunctiva/sclera: Conjunctivae normal. Neck: Comments: There is a bony protrusion (sternoclaviclar) which patient feels is new. Cardiovascular: Rate and Rhythm: Normal rate. Pulmonary: Effort: Pulmonary effort is normal. No respiratory distress. Abdominal: General: Abdomen is flat. Palpations: Abdomen is soft. Musculoskeletal: General: No swelling. Normal range of motion. Cervical back: Normal range of motion. Skin: General: Skin is warm and dry. Neurological: Mental Status: She is alert. Psychiatric: Mood and Affect: Mood normal. Breast Examination: . Left breast: No masses, skin or nipple changes Right breast: No masses, skin or nipple changes Axillary: 3 discrete LNs, largest measuring about 3-4 cm. On 04/19/2024 lymph nodes are less prominent there is 1 most prominent lymph node measuring about 3 cm. 05/16/24: Several firm discrete LNs, largest measuring about 2.[address] a lot smaller 06/27/24: LN measures about 1.5-2 cm ECOG Performance Status: [x] 0 Fully active, able to carry on all pre-disease performance without restriction [] 1 Restricted in physically strenuous activity but ambulatory and able to carry out work of a light or sedentary nature, e.g., light house work, office work [] 2 Ambulatory and capable of all selfcare but unable to carry out any work activities; up and about more than 50% of waking hours [] 3 Capable of only limited selfcare; confined to bed or chair more than 50% of waking hours [] 4 Completely disabled; cannot carry on any selfcare; totally confined to bed or chair [] 5 Results: Labs: Reviewed Lab Results Component Value Date WBC 12.8 (H) 06/24/2024 HGB 10.7 (L) 06/24/2024 HCT 32.0 (L) 06/24/2024 MCV 102 (H) 06/24/2024 PLT 155 06/24/2024 Chemistry Lab Results Component Value Date/Time NA 140 06/24/2024 1015 K 3.9 06/24/2024 1015 CL 109 (H) 06/24/2024 1015 CO2 23 06/24/2024 1015 BUN 19 06/24/2024 1015 CREATININE 0.57 06/24/2024 1015 Lab Results Component Value Date/Time CALCIUM 9.1 06/24/2024 1015 ALKPHOS 103 06/24/2024 1015 AST 17 06/24/2024 1015 ALT 14 06/24/2024 1015 BILITOT 0.8 06/24/2024 1015 Imaging: Reviewed above in Onc History Pathology: Reviewed above in Onc History Assessment: At least Clinical prognostic stage IIA (mcT1 cN1 cM0) infiltrating ductal carcinoma of the left breast; Dx in 01/2024 ; Grade 3; ER negative, NJ positive (30%), HER2 positive; receiving neoadjuvant TCHP Marilia Guzman is a very pleasant 74 y.o. postmenopausal female with newly diagnosed breast cancer with history of CLL managed expectantly. Great clinical response. Swelling in feet the last few dayssince change in her BP meds. Will reach out to her PCP to go on prior medication. Plan: Surgical Plan: I have notified Dr. Carpenter of her upcoming end of treatment Additional biopsy: No further biopsy indicated Radiation Plan: Post-op referral Additional staging scans/DEXA/echo: Baseline staging scans reviewed. She will require echocardiogram every 3 months while receiving HER2 directed therapy. She is established with oncocardiology Additional Path info (i.e Ki67, PDL1): Not indicated Gene assays: Not indicated Systemic treatment plan: docetaxel, carboplatin, trastuzumab and pertuzumab (TCHP) given once every3 weeks for 6 cycles followed by surgery. If she has a complete response she would complete a totalof one year of trastuzumab and pertuzumab; if she has residual disease we will switch to T-DM1. Intent: Curative Clinical trial: Not eligible for our current trials Endocrine therapy: Will discuss at our future visit in light of NJ positive. HER2 treatment: As above Targeted agents: not indicated Chemotherapy: As discussed above BMA: Will discuss at future visit. Access: Mediport in place Supportive meds: Anti-emetics and EMLA cream sent to pharmacy Genetic testing: Referral in place Fertility preservation: Not indicated Other active problems/orders: Lower extremity swelling: Localized to her feet. Low suspicion for DVT. I believe this is related to recent change in her blood pressure medication and coming off of hydrochlorothiazide. She will reach out to her PCP to get this resumed. I will also notify her cardiology team. Sternoclavicular prominence: Per patient new, will obtain US. CLL: managed expectantly with Dr. Edwards Cranial prosthesis prescription given today Diarrhea: Lomotil prescribed, Imodium prescribed. Will plan for IV fluids day 7 of each subsequent cycle. Surveillance plan: patient to be started on active treatment Follow-up: MD visit after C6 Marilia Guzman expressed understanding of the plan outlined above. Marilia Guzman had ample time toask questions. Marilia Guzman understands she can contact us at any time should she have additionalquestions or issues arise in the interim. Dima Cage MD Breast Medical Oncology [facility] Portions of this note were dictated utilizing voice recognition software. [facility] Work Phone: 1(698) 673-289209-12-2024 History of Present illness Narrative* Dima Cage MD - 06/02/2024 12:30 PM EDT Images from the original note were not included. Breast Medical Oncology Clinic Location: [facility] Visit Type: Follow-up Visit Oncologic History: 01/08/2024: Screening Mammogram: New grouped irregular masses in the deep central superior left breast. There is an enlarged dense left axillary lymph nodes. No findings in the right breast. 01/08/2024: CT chest abdomen pelvis obtained for monitoring of CLL/SLL. There are scattered groundglass micronodularity's of the bilateral lung bases unchanged since 2016. Enlarged left axillary lymphnodes new compared to August 2016. Stable subcentimeter lesion of the liver with no new worrisomehepatic lesions. 01/20/2024: Left breast ultrasound shows multiple hypoechoic masses 12:00 15 cm from the nipple correlating with the mammogram findings. 02/08/2024: Left breast 11:00 10 cm from the nipple biopsy shows invasive ductal carcinoma grade 3, ER negative, NJ positive (30%) and HER2 positive. Left breast 12:00 10 cm from the nipple biopsy shows invasive ductal carcinoma grade 3, ER negative, NJ positive (5 to 10%) HER2 positive. Axillary lymph node biopsy shows metastatic carcinoma with mucin production. 03/22/2024: Bone scan: Foci of increased radiotracer uptake in the frontal bone of the calvarium. 04/04/2024: Initiated neoadjuvant TCHP 04/15/2024: CT head shows no intracranial pathology or evidence of calvarial pathology. Subjective: Interval History A virtual visit between the patient (home) and the provider (at clinic site) was utilized to provide this telehealth service. Verbal consent was requested and obtained from patient on the date of theservice for a virtual visit. Patient presents today for follow-up visit prior to cycle 4 of chemotherapy. She states that 8 daysafter her treatment she started to feel very poor. States that she took her blood pressure at home noted that it was 81/65 and was feeling dizzy with palpitations. She was instructed to go to the emergency room. She was admitted there requiring IV fluids and electrolyte replacement. She states she was not found to have an infection. She currently feels very well. States that her diarrhea has improved as she is taking consistently 2 Imodium at night and 1 Lomotil. She has very mild neuropathy inher fingertips. She did not have mouth sores with this last treatment. She feels that the axillary lymph node is significantly smaller. Gynecologic History: Age of first menses: 17 years old Age of last menses: 51 years old ; FLB at age 24 Post-menopausal She did breastfeed 4-6 weeks Uterus/Ovaries: S/p TAHBSO- fibroid tumors and ovarian cysts OCP: 3 years HRT: No Pertinent Family history: Breast Cancer: None Ovarian Cancer: None Pancreatic Cancer: None Other: Mother- cecal cancer Social History Marilia Guzman reports that she has never smoked. She has never used smokeless tobacco. She reports current alcohol use. She reports no history of drug use. ROS: Review of Systems All other systems reviewed and are negative. Physical Examination: Physical examination was not performed during this telemedicine/virtual visit. There were no vitals taken for this visit. Physical Exam Breast Examination: Physical examination was not performed during this telemedicine/virtual visit. Left breast: No masses, skin or nipple changes Right breast: No masses, skin or nipple changes Axillary: 3 discrete LNs, largest measuring about 3-4 cm. On 04/19/2024 lymph nodes are less prominent there is 1 most prominent lymph node measuring about 3 cm. 05/16/24: Several firm discrete LNs, largest measuring about 2.[address] a lot smaller ECOG Performance Status: [x] 0 Fully active, able to carry on all pre-disease performance without restriction [] 1 Restricted in physically strenuous activity but ambulatory and able to carry out work of a light or sedentary nature, e.g., light house work, office work [] 2 Ambulatory and capable of all selfcare but unable to carry out any work activities; up and about more than 50% of waking hours [] 3 Capable of only limited selfcare; confined to bed or chair more than 50% of waking hours [] 4 Completely disabled; cannot carry on any selfcare; totally confined to bed or chair [] 5 Results: Labs: Reviewed Lab Results Component Value Date WBC 15.6 (H) 05/13/2024 HGB 11.7 (L) 05/13/2024 HCT 33.8 (L) 05/13/2024 MCV 92 05/13/2024 PLT 152 05/13/2024 Chemistry Lab Results Component Value Date/Time NA 140 05/16/2024 1012 K 3.5 05/16/2024 1012 CL 104 05/16/2024 1012 CO2 24 05/16/2024 1012 BUN 19 05/16/2024 1012 CREATININE 0.50 05/16/2024 1012 Lab Results Component Value Date/Time CALCIUM 9.0 05/16/2024 1012 ALKPHOS 90 05/16/2024 1012 AST 18 05/16/2024 1012 ALT 17 05/16/2024 1012 BILITOT 0.9 05/16/2024 1012 Imaging: Reviewed above in Onc History Pathology: Reviewed above in Onc History Assessment: At least Clinical prognostic stage IIA (mcT1 cN1 cM0) infiltrating ductal carcinoma of the left breast; Dx in 01/2024 ; Grade 3; ER negative, NJ positive (30%), HER2 positive; receiving neoadjuvant TCHP Marilia Guzman is a very pleasant 74 y.o. postmenopausal female with newly diagnosed breast cancer with history of CLL managed expectantly. Cycle 3 complicated by admission for IV fluids and electrolyte replacement. Patient feels that this was because her scheduled IV fluids were pushed back due tothe holiday weekend. At this time she would like to proceed with current dosing of treatment with scheduled IV fluids 1 week out. She will have a low threshold for calling us if any symptoms recur aswe will bring her in for acute visit for hydration. Plan: Surgical Plan: Will refer back to surgeon after neoadjuvant chemotherapy Additional biopsy: No further biopsy indicated Radiation Plan: Post-op referral Additional staging scans/DEXA/echo: Baseline staging scans reviewed. She will require echocardiogram every 3 months while receiving HER2 directed therapy. She is established with oncocardiology Additional Path info (i.e Ki67, PDL1): Not indicated Gene assays: Not indicated Systemic treatment plan: docetaxel, carboplatin, trastuzumab and pertuzumab (TCHP) given once every3 weeks for 6 cycles followed by surgery. If she has a complete response she would complete a totalof one year of trastuzumab and pertuzumab; if she has residual disease we will switch to T-DM1. Intent: Curative Clinical trial: Not eligible for our current trials Endocrine therapy: Will discuss at our future visit in light of NJ positive. HER2 treatment: As above Targeted agents: not indicated Chemotherapy: As discussed above BMA: Will discuss at future visit. Access: Referral for mediport in place Supportive meds: Anti-emetics and EMLA cream sent to pharmacy Genetic testing: Referral in place Fertility preservation: Not indicated Other active problems/orders: CLL: managed expectantly with Dr. Edwards Cranial prosthesis prescription given today Diarrhea: Lomotil prescribed, Imodium refilled. Will plan for IV fluids day 7 of each subsequent cycle. Surveillance plan: patient to be started on active treatment Follow-up: MD visit prior to cycle 5 of TCHP Marilia Guzman expressed understanding of the plan outlined above. Marilia Guzman had ample time toask questions. Marilia Guzman understands she can contact us at any time should she have additionalquestions or issues arise in the interim. Dima Cage MD Breast Medical Oncology [facility] Portions of this note were dictated utilizing voice recognition software. [facility] this [facility] Work Phone: 1(178) 489-749709-12-2024 Instructions* Patient Instructions* Ivonne Wallis RN - 06/02/2024 12:30 PM EDT Please proceed with scheduled appointments at [place]: 06/03/24 at 2:00pm- Port lab draw. 06/06/24 at 9:00 am- chemo treatment. 06/13/24 at 10:30 am-hydration/iv fluids. 06/24/24 at 10:00am- Port lab draw. 06/27/24 at 8:50 am- Dr Cage appointment, then chemo to follow. 07/04/24 at 1:00-hydration/iv fluids. Please call office at [phone] option 5, then option 2, with symptoms, questions or concerns. documented in this [facility]Un[facility] Work Phone: [phone]) [phone] NoteHNO ID: [id number] Author: PAM LEZAMA RN Service: Care Management Author Type: Registered Nurse Type: Care Mgt Progress Note Filed: 05/25/2024 11:12 Note Text: CARE MANAGEMENT DISCHARGE NOTE SERVICE DATE: May 25, 2024 SERVICE TIME: 11:11 AM Admission Date: 05/24/2024 LOS: 1 day Discharge Arrangement Discharge Arrangement: Home with Self Care Services Arranged Medical Services: Other: See Comment Provider Name: n/a Phone: n/a Caregiver Assessment Caregiver is ready, willing and able to meet the patient's needs as recommended by the inter-professional team: No Caregiver needed Transportation Arrangements Transportation Arrangements: Car Date of Trip: 05/25/24 Time of Trip: 1110 Destination: Home Handoff Communication: Handoff to: Primary Care Physician Primary Care Physician Name/Phone: Chandler Calzada APRN, TIFF [phone] Additional Information: Discharge written for patient to go home. Patient agreeable to discharge plan and denies needs. Reilly to transport. Bedside nurse updated. SOC sent to PCP. No needs upon discharge. SIGNATURE: Pam Lezama RN PATIENT NAME: Marilia Guzman DATE: May 25, 2024 TIME: 11:11 AM CONTACT #: [phone] NoteHNO ID: [id number] Author: PAM LEZAMA RN Service: Care Management Author Type: Registered Nurse Type: Care Mgt Initial Assessment Filed: 05/25/2024 11:11 Note Text: CARE MANAGEMENT: ASSESSMENT AND DISCHARGE PLAN SERVICE DATE: May 25, 2024 SERVICE TIME: 11:10 AM PCP: Chandler Calzada APRN.OUTSIDE INDUSTRIAL SALES REPRESENTATIVE--Confirmed Primary Contact: Extended Emergency Contact Information Primary Emergency Contact: Reilly Guzman Address: [address] [place] [id number] Relation: Spouse Admission Status: Inpatient Insurance Provider: [employer] MEDICARE HMO Discharge Planning requested by: Per Department Practice Potential Transition Plans No Services Indicated Advance Directives Current Advance Directive: Health Care Power of And Drying Supervisor Cooking Casing In Chart: No Aircraft Detail Draftsperson Attempted to Assist with AD Completion: Yes Action: Education Provided Current Living Arrangements and Support Lives with: Spouse/significant other Type of Residence: Private Residence (House) Does the patient have to climb stairs at home?: Yes;stairs outside the home;stairs within the home Support: Spouse/significant other How do you manage to accomplish the following: Independent: Ambulation;Bathe/Shower;Dress;Meals/Meal Prep;Going to the bathroom;Medication Management;Transportation to appointments/community Current Services/Equipment Current Post-Acute Service(s): None Discharge Planning Patient Goal(s): Independent living, Be able to go home, General wellness [place] of Choice Explained: [place] of [place] Given: No Reason Not Given: No placements necessary Are you interested in bedside delivery of your medications? No Discharge Planning Participant(s): Patient Patient/Family Comments: Caregiver Assessment: Caregiver is ready, willing and able to meet the patient's needs as recommended by the inter-professional team: No Caregiver needed Transport at Discharge: Transportation Arrangements: Car Date of Trip: 05/25/24 Time of Trip: 1110 Destination: Home Needs Prior to Discharge: Needs Prior to Discharge: Ready for Discharge Post-Acute Discharge Plan: Case Management met at bedside with patient, introduced self and role. Pt is 73 y/o, with admitting Dx of Hypokalemia. Patient is on RA. Pt is AANDO X 3, IPTA. Patient is from Home with Spouse. Spouse to provide transport upon discharge. Anticipate no needs upon discharge. CM instructed patient that CM team will remain available for any dc needs. SIGNATURE: Pam Lezama RN PATIENT NAME: Marilia Guzman DATE: May 25, 2024 TIME: 11:10 AM CONTACT #: [phone] (AGENT OF COVID-19) RNA: Not detected INFLUENZA A RNA: Not detected INFLUENZA B RNA: Not detected RESPIRATORY SYNCYTIAL VIRUS (RSV) RNA: Not detectedTrihealth Bethesda Butler HospitalComment on above:Performed By: #### [id number] ####[facility]ORATORYCLIA [id number] [place], [place] [id number] [place], [place] [id number] History of Present illness Narrative* Dima Cage MD - 05/16/2024 9:50 AM EDT Images from the original note were not included. Breast Medical Oncology Clinic Location: [facility] Visit Type: Follow-up Visit Oncologic History: 01/08/2024: Screening Mammogram: New grouped irregular masses in the deep central superior left breast. There is an enlarged dense left axillary lymph nodes. No findings in the right breast. 01/08/2024: CT chest abdomen pelvis obtained for monitoring of CLL/SLL. There are scattered groundglass micronodularity's of the bilateral lung bases unchanged since 2016. Enlarged left axillary lymphnodes new compared to August 2016. Stable subcentimeter lesion of the liver with no new worrisomehepatic lesions. 01/20/2024: Left breast ultrasound shows multiple hypoechoic masses 12:00 15 cm from the nipple correlating with the mammogram findings. 02/08/2024: Left breast 11:00 10 cm from the nipple biopsy shows invasive ductal carcinoma grade 3, ER negative, NJ positive (30%) and HER2 positive. Left breast 12:00 10 cm from the nipple biopsy shows invasive ductal carcinoma grade 3, ER negative, NJ positive (5 to 10%) HER2 positive. Axillary lymph node biopsy shows metastatic carcinoma with mucin production. 03/22/2024: Bone scan: Foci of increased radiotracer uptake in the frontal bone of the calvarium. 04/04/2024: Initiated neoadjuvant TCHP 04/15/2024: CT head shows no intracranial pathology or evidence of calvarial pathology. Subjective: Interval History Presents today for follow-up visit. C2 TCHP much better. No bone pain this cycle No bad headaches this time Diarrhea under better control- D4 came on. At its peak was having 3-4 Bms a day Improved until she ate a lot of grapes this week. No neuropathy. No nausea/vomiting. Energy is great this week. Called regarding low K this weekend. Took 60 mEq Thursday and Thursday and 20 mg this morning. Gynecologic History: Age of first menses: 17 years old Age of last menses: 51 years old ; FLB at age 24 Post-menopausal She did breastfeed 4-6 weeks Uterus/Ovaries: S/p TAHBSO- fibroid tumors and ovarian cysts OCP: 3 years HRT: No Pertinent Family history: Breast Cancer: None Ovarian Cancer: None Pancreatic Cancer: None Other: Mother- cecal cancer Social History Marilia Guzman reports that she has never smoked. She has never used smokeless tobacco. She reports current alcohol use. She reports no history of drug use. ROS: Review of Systems All other systems reviewed and are negative. Physical Examination: BP 92/65 Pulse 80 Temp 35.6 C (96.1 F) Resp 16 Wt 58.2 kg (128 lb 3.2 oz) SpO2 97% BMI 22.97 kg/m Physical Exam Vitals and nursing note reviewed. Constitutional: General: She is not in acute distress. Appearance: Normal appearance. She is not toxic-appearing. HENT: Head: Normocephalic and atraumatic. Eyes: Conjunctiva/sclera: Conjunctivae normal. Cardiovascular: Rate and Rhythm: Normal rate. Pulmonary: Effort: Pulmonary effort is normal. No respiratory distress. Abdominal: General: Abdomen is flat. Palpations: Abdomen is soft. Musculoskeletal: General: No swelling. Normal range of motion. Cervical back: Normal range of motion. Skin: General: Skin is warm and dry. Neurological: Mental Status: She is alert. Psychiatric: Mood and Affect: Mood normal. Breast Examination: Left breast: No masses, skin or nipple changes Right breast: No masses, skin or nipple changes Axillary: 3 discrete LNs, largest measuring about 3-4 cm. On 04/19/2024 lymph nodes are less prominent there is 1 most prominent lymph node measuring about 3 cm. 05/16/24: Several firm discrete LNs, largest measuring about 2.5 cm. ECOG Performance Status: [x] 0 Fully active, able to carry on all pre-disease performance without restriction [] 1 Restricted in physically strenuous activity but ambulatory and able to carry out work of a light or sedentary nature, e.g., light house work, office work [] 2 Ambulatory and capable of all selfcare but unable to carry out any work activities; up and about more than 50% of waking hours [] 3 Capable of only limited selfcare; confined to bed or chair more than 50% of waking hours [] 4 Completely disabled; cannot carry on any selfcare; totally confined to bed or chair [] 5 Results: Labs: Reviewed Lab Results Component Value Date WBC 15.6 (H) 05/13/2024 HGB 11.7 (L) 05/13/2024 HCT 33.8 (L) 05/13/2024 MCV 92 05/13/2024 PLT 152 05/13/2024 Chemistry Lab Results Component Value Date/Time NA 140 05/13/2024 1104 K 2.4 (LL) 05/13/2024 1104 CL 99 05/13/2024 1104 CO2 25 05/13/2024 1104 BUN 21 05/13/2024 1104 CREATININE 0.60 05/13/2024 1104 Lab Results Component Value Date/Time CALCIUM 8.9 05/13/2024 1104 ALKPHOS 111 05/13/2024 1104 AST 18 05/13/2024 1104 ALT 16 05/13/2024 1104 BILITOT 1.1 05/13/2024 1104 Imaging: Reviewed above in Onc History Pathology: Reviewed above in Onc History Assessment: At least Clinical prognostic stage IIA (mcT1 cN1 cM0) infiltrating ductal carcinoma of the left breast; Dx in 01/2024 ; Grade 3; ER negative, NJ positive (30%), HER2 positive; receiving neoadjuvant TCHP Marilia Guzman is a very pleasant 73 y.o. postmenopausal female with newly diagnosed breast cancer with history of CLL managed expectantly. Treatment better tolerated with supportive medications. Started K supplementation this weekend. Will recheck CMP. Proceed with C3. Plan: Surgical Plan: Will refer back to surgeon after neoadjuvant chemotherapy Additional biopsy: No further biopsy indicated Radiation Plan: Post-op referral Additional staging scans/DEXA/echo: Baseline staging scans reviewed. Will order NM bone scan to complete staging. Will order baseline echocardiogram in anticipation of HER2 directed therapy. She willrequire echocardiogram every 3 months while receiving HER2 directed therapy. Referral to onco-cardiology. Additional Path info (i.e Ki67, PDL1): Not indicated Gene assays: Not indicated Systemic treatment plan: docetaxel, carboplatin, trastuzumab and pertuzumab (TCHP) given once every3 weeks for 6 cycles followed by surgery. If she has a complete response she would complete a totalof one year of trastuzumab and pertuzumab; if she has residual disease we will switch to T-DM1. Intent: Curative Clinical trial: Not eligible for our current trials Endocrine therapy: Will discuss at our future visit in light of NJ positive. HER2 treatment: As above Targeted agents: not indicated Chemotherapy: As discussed above BMA: Will discuss at future visit. Access: Referral for mediport in place Supportive meds: Anti-emetics and EMLA cream sent to pharmacy Genetic testing: Referral in place Fertility preservation: Not indicated Other active problems/orders: CLL: managed expectantly with Dr. Edwards Cranial prosthesis prescription given today Diarrhea: Lomotil prescribed: Will plan for IV fluids day 7 of each subsequent cycle. Surveillance plan: patient to be started on active treatment Follow-up: MD visit prior to cycle 5 of TCHP Marilia Guzman expressed understanding of the plan outlined above. Marilia Guzman had ample time toask questions. Marilia Guzman understands she can contact us at any time should she have additionalquestions or issues arise in the interim. Dima Cage MD Breast Medical Oncology [facility] Portions of this note were dictated utilizing voice recognition software. documented in this [facility] Work Phone: 1([phone]) 536-264208-15-2024 History of Present illness Narrative* Brenda Cortes MD - 05/05/2024 11:30 AM EDT CARDIOLOGY NEW PATIENT OFFICE VISIT Patient: Marilia Guzman Date of : 1950 Chief Complaint/Active Symptoms: Marilia Guzman is a 73 y.o. female who is being seen today at the request of Dr. August for evaluation of breast cancer. Chief Complaint Patient presents with Establish Care History of Present Illness: HPI Referred due to history of ER negative left breast cancer. Patient comes for cardiovascular evaluation due to cardiotoxic drug therapy for the treatment of her left breast cancer. Patient is ER negative HER2 positive and has undergone biopsy and her first 2 cycles of TCHP. She has no chest pain or discomfort has some mild dyspnea on exertion that is chronic without orthopnea or PND. She has no palpitations, syncope or near syncope. She has had some orthostatic lightheadedness. Required IV hydration with her last treatment. She has no known prior cardiovascular events. She has no syncope or near syncope, no edema, claudication, history of stroke or TIA. Her first 2 cycles of chemotherapy have been complicated by refractory diarrhea. Cancer Diagnosis: Left breast cancer, ER negative Oncologist: Dr. Dima Cage, Josie Carpenter Treatment: TCHP, completed 2 cycles Cancer Diagnosis #2: CLL / SLL - b lymphocytes - CD% and 23 + Oncologist: Chava Hebert Treatment: Observation at present. Risk factors: HTN, DM SH: Non-smoker Imaging: CT chest 12/2023 - no coronary calcifications, normal cardiac size, no pericardial effusion Echo 03/2024 - EF 60-65%, grade I diastolic dysfunction, aortic valve sclerosis, mitral valve prolapse with mild regurgitation. Allergies: Allergies Allergen Reactions Aluminum Rash Rash under arms Nickel Dermatitis Allergy to nickel and aluminium Outpatient Medications: Current Outpatient Medications Medication Instructions diphenoxylate-atropine (LomotiL) 2.5-0.025 mg tablet 1 tablet, oral, 4 times daily PRN empagliflozin (JARDIANCE) 25 mg, oral GENERIC EXTERNAL MEDICATION 1 tablet, oral, Daily, Triflexarin: 200 mcg selenium, 800 mg barrett/tumeric, 40mg cartilage, 10 mg collagen, 220mg calcium losartan-hydrochlorothiazide (Hyzaar) 50-12.5 mg tablet 1 tablet, oral, Daily meloxicam (MOBIC) 15 mg, oral, Daily metFORMIN (GLUCOPHAGE) 500 mg, oral, 3 times daily ondansetron (ZOFRAN) 8 mg, oral, Every 8 hours PRN pantoprazole (PROTONIX) 40 mg, oral, Daily, Do not crush, chew, or split. prochlorperazine (COMPAZINE) 10 mg, oral, Every 6 hours PRN simvastatin (ZOCOR) 20 mg, oral, Nightly Past Medical History: Past Medical History: Diagnosis Date Lymphoma (Multi) Social History: Social History Socioeconomic History Marital status: Tobacco Use Smoking status: Never Smokeless tobacco: Never Substance and Sexual Activity Alcohol use: Yes Comment: rare Drug use: Never Family History: No family history on file. Review of Systems: Review of Systems Constitutional: Positive for activity change and fatigue. HENT: Negative. Respiratory: Positive for shortness of breath. Cardiovascular: Negative. Gastrointestinal: Positive for diarrhea, nausea and vomiting. Genitourinary: Negative. Musculoskeletal: Positive for arthralgias. Neurological: Positive for light-headedness. Psychiatric/Behavioral: The patient is nervous/anxious. All other systems reviewed and are negative. Objective: Vitals: 05/05/24 1123 BP: 95/64 Pulse: 78 Vitals: 05/05/24 1123 Weight: 56.2 kg (124 lb) Physical Examination: GENERAL: Well developed, well nourished, in no acute distress. HEENT: NC AT EOMI with anicteric sclera NECK: Supple, no JVD, no bruit. CHEST: Symmetric and nontender. LUNGS: Normal respiratory effort. Bilateral breath sounds clear to auscultation. HEART: PMI is nondisplaced. There is a regular rhythm with a normal S1 and S2 no S3. There is a midsystolic click without murmur. No diastolic murmur. No carotid or abdominal bruits, normal pedal pulses without edema PERIPHERAL VASCULAR: Pulses present and equally palpable; 2+ throughout. ABDOMEN: Soft, NT, ND without HSM or palpable organomegaly, no bruits, normoactive bowel sounds MUSCULOSKELETAL: No significant joint or limb deformity EXTREMITIES: Warm with good color, no clubbing or cyanosis. There is no edema noted. NEURO/PSYCH: Alert and oriented times three with approppriate behavior and responses. LYMPH: no significant palpable lymphadenopathy SKIN: No rashes on exposed skin, no reported skin lesions. Lab: CBC: Lab Results Component Value Date WBC 20.7 (H) 04/22/2024 RBC 4.07 04/22/2024 HGB 12.8 04/22/2024 HCT 36.6 04/22/2024 PLT 181 04/22/2024 Lab Results Component Value Date WBC 20.7 (H) 04/22/2024 WBC 9.8 04/01/2024 WBC 8.9 03/22/2024 RBC 4.07 04/22/2024 RBC 4.58 04/01/2024 RBC 4.94 03/22/2024 HGB 12.8 04/22/2024 HGB 14.1 04/01/2024 HGB 15.1 03/22/2024 HCT 36.6 04/22/2024 HCT 41.6 04/01/2024 HCT 44.9 03/22/2024 MCV 90 04/22/2024 MCV 91 04/01/2024 MCV 91 03/22/2024 MCH 31.4 04/22/2024 MCH 30.8 04/01/2024 MCH 30.6 03/22/2024 MCHC 35.0 04/22/2024 MCHC 33.9 04/01/2024 MCHC 33.6 03/22/2024 RDW 13.0 04/22/2024 RDW 12.4 04/01/2024 RDW 12.4 03/22/2024 PLT 181 04/22/2024 PLT 204 04/01/2024 PLT 286 03/22/2024 CMP: Lab Results Component Value Date NA 137 04/22/2024 K 3.1 (L) 04/22/2024 CL 99 04/22/2024 CO2 28 04/22/2024 BUN 23 04/22/2024 CREATININE 0.67 04/22/2024 GLUCOSE 209 (H) 04/22/2024 CALCIUM 9.1 04/22/2024 Lab Results Component Value Date NA 137 04/22/2024 NA 141 04/01/2024 NA 139 03/22/2024 K 3.1 (L) 04/22/2024 K 3.4 (L) 04/01/2024 K 3.8 03/22/2024 CL 99 04/22/2024 CL 106 04/01/2024 CL 101 03/22/2024 CO2 28 04/22/2024 CO2 24 04/01/2024 CO2 27 03/22/2024 BUN 23 04/22/2024 BUN 36 (H) 04/01/2024 BUN 18 03/22/2024 CREATININE 0.67 04/22/2024 CREATININE 0.71 04/01/2024 CREATININE 0.65 03/22/2024 Lab Results Component Value Date ALKPHOS 276 (H) 04/22/2024 ALT 44 04/22/2024 AST 26 04/22/2024 PROT 5.7 (L) 04/22/2024 BILITOT 0.6 04/22/2024 Magnesium: No results found for: MG Lipid Profile: No results found for: CHLPL, TRIG, HDL, LDLCALC, LDLDIRECT TSH: No results found for: TSH BNP: No results found for: BNP PT/INR: Lab Results Component Value Date PROTIME 10.2 03/22/2024 INR 0.9 03/22/2024 HgBA1c: No results found for: HGBA1C Cardiac Enzymes: No results found for: TROPHS Diagnostic Studies: Transthoracic Echo Complete Result Date: 03/23/2024 [facility], [address] [place] [address], [address] [address] and TRANSTHORACIC ECHOCARDIOGRAM REPORT Patient Name: MARILIA Choi Physician: Petrona Shelby MD Study Date: 03/23/2024 Ordering Provider: [id number] CAGE MRN/PID: [id number]: Nurse: Date of /Age: 9 1950 / 73 years Research Lab Assistant: Lina Andrew RDCS Gender: F Additional Staff: Height: 157.48 cm Admit Date: Weight: 59.87 kg Admission Status: Outpatient BSA / BMI: 1.60 m2 / 24.14 kg/m2 Blood Pressure: 121/81 mmHg Department Location: [facility] Study Type: TRANSTHORACIC ECHO (TTE) COMPLETE Diagnosis/ICD: Encounter for antineoplastic chemotherapy-Z51.11 Indication: Pre chemotherapy echo CPT Code: Echo Complete w Full Doppler-[id number] Patient History: Pertinent History: Breast CA. Study Detail: The following Echo studies were performed: 2D, M-Mode, Doppler and color flow. PHYSICIAN INTERPRETATION: Left Ventricle: The left ventricular systolic function is normal, with a visually estimated ejection fraction of 60-65%. There are no regional wall motion abnormalities. The left ventricular cavity size is normal. Spectral Doppler shows an impaired relaxation pattern of left ventricular diastolic filling. LeftAtrium: The left atrium is upper limits of normal in size. Right Ventricle: The right ventricle is normal in size. There is normal right ventricular global systolic function. Right Atrium: The right atrium is normal in size. Aortic Valve: The aortic valve is trileaflet. There is no evidence of aortic valve regurgitation. The peak instantaneous gradient of the aortic valve is 11.0 mmHg. Mitral Valve: The mitral valve is mildly thickened. There is moderate mitral valve prolapse of the anterior and posterior leaflets. There is mild mitral valve regurgitation. Mitral annular dysjunction is present. Tricuspid Valve: The tricuspid valve is structurally normal. There is trace tricuspid regurgitation. The Doppler estimated RVSP is within normal limits at 26.1 mmHg. Pulmonic Valve: The pulmonic valve is structurally normal. There is physiologic pulmonic valve regurgitation. Pericardium: There jing trivial pericardial effusion. Aorta: The aortic root is normal. There is no dilatation of the aortic root. CONCLUSIONS: 1. The left ventricular systolic function is normal, with a visually estimated ejection fraction of 60-65%. 2. Spectral Doppler shows an impaired relaxation pattern of left ventricular diastolic filling. 3. There is normal right ventricular global systolic function. 4. There is moderate mitral valve prolapse. 5. There is mild mitral valve regurgitation. 6. RVSP within normal limits. QUANTITATIVE DATA SUMMARY: 2D MEASUREMENTS: Normal Ranges: LAs: 3.61 cm (2.7-4.0cm) IVSd: 0.60 cm (0.6-1.1cm) LVPWd: 0.95 cm (0.6-1.1cm) LVIDd: 4.09 cm (3.9-5.9cm) LVIDs: 3.12 cm LV Mass Index: 57.7 g/m2 LV % FS 23.7 % LA VOLUME: Normal Ranges: LA Vol A4C: 43.1 ml (22+/-6mL/m2) LA Vol A2C: 56.8 ml LA Vol Index A4C: 26.9 ml/m2 LA Vol Index A2C: 35.4 ml/m2 LA Area A4C: 17.0 cm2 LA Major [place] A4C: 5.7 cm LA Vol A4C: 39.9 ml LA Vol A2C: 53.3 ml RA VOLUME BY A/L METHOD: Normal Ranges: RA VolA4C: 22.4 ml (8.3-19.5ml) RA Vol Index A4C: 14.0 ml/m2 RA Area A4C: 11.0 cm2 RA Major [place] A4C: 4.6cm M-MODE MEASUREMENTS: Normal Ranges: Ao Root: 3.20 cm (2.0-3.7cm) LAs: 3.60 cm (2.7-4.0cm) AORTA M EASUREMENTS: Normal Ranges: Asc Ao, d: 3.10 cm (2.1-3.4cm) Ao Arch: 2.70 cm (2.0-3.6cm) LV SYSTOLICFUNCTION BY 2D PLANIMETRY (MOD): Normal Ranges: EF-A4C View: 60 % (>=55%) EF-A2C View: 68 % EF-Biplane: 65 % EF-Visual: 63 % LV EF Reported: 63 % LV DIASTOLIC FUNCTION: Normal Ranges: MV Peak E: 0.67 m/s (0.7- 1.2 m/s) MV Peak A: 0.87 m/s (0.42-0.7 m/s) E/A Ratio: 0.77 (1.0-2.2) MV e' 0.088 m/s (>8.0) MV lateral e' 0.11 m/s MV medial e' 0.06 m/s MV A Dur: 137.01 msec E/e' Ratio: 7.65 (<8.0) PulmV Sys Nilson: 49.67 cm/s PulmV Garcia Nilson: 32.05 cm/s PulmV S/D Nilson: 1.55 PulmV A Revs Nilson: 24.34 cm/s PulmV A Revs Dur: 137.01 msec MITRAL VALVE: Normal Ranges: MV DT: 263 msec (150-240msec) AORTIC VALVE: Normal Ranges: AoV Vmax: 1.66 m/s (<=1.7m/s) AoV Peak P.0 mmHg (<20mmHg) LVOT MaxVel: 1.32 m/s (<=1.1m/s) LVOT VTI: 28.79 cm LVOT Diameter: 2.11 cm (1.8-2.4cm) AoV Area,Vmax: 2.79 cm2 (2.5-4.5cm2) AORTIC INSUFFICIENCY: AI Vmax: 3.69 m/s AI Half-time: 722 msec AI Decel Time: 2490 msec AI Decel Rate: 149.16 cm/s2 RIGHT VENTRICLE: RV Basal 2.70 cm RV Mid 2.00 cm RV Major 5.8 cm TAPSE: 17.0 mm RV s' 0.10 m/s TRICUSPID VALVE/RVSP: Normal Ranges: Peak TR Velocity: 2.40 m/s RV Syst Pressure: 26.1 mmHg (< 30mmHg) IVC Diam: 2.00 cm PULMONIC VALVE: Normal Ranges: PV Accel Time:104 msec (>120ms) PV Max Nilson: 0.8 m/s (0.6-0.9m/s) PV Max P.4 mmHg Pulmonary Veins: PulmV A Revs Dur: 137.01 msec PulmV A Revs Nilson: 24.34 cm/s PulmV Garcia Nilson: 32.05 cm/s PulmV S/D Nilson: 1.55 PulmV Sys Nilson: 49.67 cm/s [id number] Linus Shelby MD Electronically signed on 03/23/2024 at 6:06:22 PM Final No nuclear medicine results found for the past 12 months EKG today showed normal sinus rhythm with low voltage QRS, criteria for septal myocardial infarction, nonspecific diffuse ST and T wave abnormality. Radiology: No valid procedures specified. Assessment: Problem List Items Addressed This Visit CLL (chronic lymphocytic leukemia) (Multi) - Primary Relevant Orders ECG 12 lead (Clinic Performed) (Completed) Malignant neoplasm of upper-inner quadrant of left breast in female, estrogen receptor negative (Multi) Relevant Orders Onco-Echo Limited (Strain And 3D) Encounter for monitoring cardiotoxic drug therapy Relevant Orders Onco-Echo Limited (Strain And 3D) Troponin I, High Sensitivity B-Type Natriuretic Peptide Essential hypertension, benign Mixed hyperlipidemia Mitral valve prolapse Other Visit Diagnoses Shortness of breath Relevant Orders B-Type Natriuretic Peptide Plan: 1. Left breast cancer. ER negative HER2 positive. Encounter for cardiotoxic drug therapy. Patient is an increased risk due to age and cardiovascular risk factors. At this time there is no signs or symptoms of heart failure or angina. We reviewed the potential cardiovascular toxicities or side effects of her current drug treatment. We reviewed the signs and symptoms of heart failure and what to watch for when to seek earlier medical attention and notify us. Will get a troponin and BN peptide andhave requested an echocardiogram for 3 months and office follow-up in 3 months. If no change early on and no elevation of troponin will continue to follow her every 3 months and consider her follow-up echo at the end of therapy. 2. History of hypertension, mild hypotension. The patient is likely still hypovolemic. This may be aggravated by her Jardiance. While it is not specifically a diuretic and has a diuretic effect. If her volume status cannot be controlled would consider cutting the medication in half or holding it or cutting her leg losartan with hydrochlorothiazide. 3. Diarrhea. While this is a side effect associated with her chemotherapy could be aggravated by metformin which is also known to cause diarrhea. 4. Hyper lipidemia. Is on simvastatin therapy as long as she has no LFT elevations can continue that medication while receiving other treatment. I will see her back in follow-up in 3 months after echocardiogram and sooner at any time if there is questions or concerns. Would make a point of holding or discontinuing her losartan with hydrochlorothiazide if her blood pressures not improved at her next appointment with oncology. documented in this [facility] Work Phone: 1(503) 675-805907-12-2024 Hospital Discharge instructions* Discharge Instructions* Jacqui Alvarez RN - 04/01/2024 1:06 PM EDT You received moderate sedation: - Do not drive a car, or operate any machinery or power tools of any kind for 24 hours. - Do not drink any alcoholic drinks for 24 hours. - Do not take any over the counter medications that may cause drowsiness for 24 hours. - Do not make any important decisions or sign any legal documents for 24 hours. - You need to have a responsible adult accompany you home. - You may resume your normal diet. - We strongly suggest that a responsible adult be with you for the rest of the day and also during the night. This is for your protection and safety. For questions related to your procedure: Please call [phone] between the hours of 7:00am-5:00pm Thursday through Thursday. Please call [phone] after 5:00pm and on weekends and holidays. In the event of an emergency call 911 or go to your nearest emergency room. documented in this [facility] Work Phone: 1(664) 637-529007-12-2024 Miscellaneous Notes* Post-Procedure Note - Linus Calzada MD - 04/01/2024 11:30 AM EDT Interventional Radiology Brief Postprocedure Note Attending: Pieter Calzada Diagnosis: Breast cancer Description of procedure: Right internal jugular single lumen port placement Anesthesia: MAC Complications: None Estimated Blood Loss: minimal Medications (Filter: Administrations occurring from 1142 to 1251 on 04/01/24) As of 04/01/24 1251 fentaNYL PF (Sublimaze) injection (mcg) Total dose: 50 mcg Date/Time Rate/Dose/Volume Action 04/01/24 1207 50 mcg Given midazolam (Versed) injection (mg) Total dose: 1 mg Date/Time Rate/Dose/Volume Action 04/01/24 1207 1 mg Given No specimens collected See detailed result report with images in PACS. The patient tolerated the procedure well without incident or complication and is in stable condition. * Pre-Procedure Note - Tara Ford MD - 04/01/2024 11:30 AM EDT Interventional Radiology Preprocedure Note Indication for procedure: The encounter diagnosis was Malignant neoplasm of upper-inner quadrant ofleft breast in female, estrogen receptor negative (Multi). Mediport Placement. Relevant review of systems: NA Relevant Labs: Lab Results Component Value Date CREATININE 0.65 03/22/2024 EGFR >90 03/22/2024 INR 0.9 03/22/2024 PROTIME 10.2 03/22/2024 Planned Sedation/Anesthesia: Minimal Airway assessment: normal Directed physical examination: Physical Exam HENT: Head: Normocephalic. Pulmonary: Effort: Pulmonary effort is normal. Abdominal: General: Abdomen is flat. Neurological: Mental Status: She is alert. Mallampati: I (soft palate, uvula, fauces, and tonsillar pillars visible) ASA Score: ASA 3 - Patient with moderate systemic disease with functional limitations Benefits, risks and alternatives of procedure and planned sedation have been discussed with the patient and/or their client account representative. All questions answered and they agree to proceed. [facility]: 1(656) 325-441607-12-2024 Note* Post-Procedure Note - Linus Calzada MD - 04/01/2024 11:30 AM EDT Interventional Radiology Brief Postprocedure Note Attending: Pieter Calzada Diagnosis: Breast cancer Description of procedure: Right internal jugular single lumen port placement Anesthesia: MAC Complications: None Estimated Blood Loss: minimal Medications (Filter: Administrations occurring from 1142 to 1251 on 04/01/24) As of 04/01/24 1251 fentaNYL PF (Sublimaze) injection (mcg) Total dose: 50 mcg Date/Time Rate/Dose/Volume Action 04/01/24 1207 50 mcg Given midazolam (Versed) injection (mg) Total dose: 1 mg Date/Time Rate/Dose/Volume Action 04/01/24 1207 1 mg Given No specimens collected See detailed result report with images in PACS. The patient tolerated the procedure well without incident or complication and is in stable condition. [facility] Work Phone: 1(239) 768-818607-12-2024 Note* Pre-Procedure Note - Tara Ford MD - 04/01/2024 11:30 AM EDT Interventional Radiology Preprocedure Note Indication for procedure: The encounter diagnosis was Malignant neoplasm of upper-inner quadrant ofleft breast in female, estrogen receptor negative (Multi). Mediport Placement. Relevant review of systems: NA Relevant Labs: Lab Results Component Value Date CREATININE 0.65 03/22/2024 EGFR >90 03/22/2024 INR 0.9 03/22/2024 PROTIME 10.2 03/22/2024 Planned Sedation/Anesthesia: Minimal Airway assessment: normal Directed physical examination: Physical Exam HENT: Head: Normocephalic. Pulmonary: Effort: Pulmonary effort is normal. Abdominal: General: Abdomen is flat. Neurological: Mental Status: She is alert. Mallampati: I (soft palate, uvula, fauces, and tonsillar pillars visible) ASA Score: ASA 3 - Patient with moderate systemic disease with functional limitations Benefits, risks and alternatives of procedure and planned sedation have been discussed with the patient and/or their client account representative. All questions answered and they agree to proceed. [facility] Work Phone: 1(915) 653-715307-02-2024 History of Present illness Narrative* Dima Cage MD - 03/22/2024 9:50 AM EDT Images from the original note were not included. Breast Medical Oncology Clinic Location: [facility] Visit Type: New Patient Visit Oncologic History: 01/08/2024: Screening Mammogram: New grouped irregular masses in the deep central superior left breast. There is an enlarged dense left axillary lymph nodes. No findings in the right breast. 01/08/2024: CT chest abdomen pelvis obtained for monitoring of CLL/SLL. There are scattered groundglass micronodularity's of the bilateral lung bases unchanged since 2016. Enlarged left axillary lymphnodes new compared to August 2016. Stable subcentimeter lesion of the liver with no new worrisomehepatic lesions. 01/20/2024: Left breast ultrasound shows multiple hypoechoic masses 12:00 15 cm from the nipple correlating with the mammogram findings. 02/08/2024: Left breast 11:00 10 cm from the nipple biopsy shows invasive ductal carcinoma grade 3, ER negative, NJ positive (30%) and HER2 positive. Left breast 12:00 10 cm from the nipple biopsy shows invasive ductal carcinoma grade 3, ER negative, NJ positive (5 to 10%) HER2 positive. Axillary lymph node biopsy shows metastatic carcinoma with mucin production. Subjective: History of Present Illness Patient presents today for NPV for management of recently diagnosed breast cancer. She is accompanied by . Oncologic history reviewed above. She was in her usual state of health at the time of diagnosis. She has met with her breast surgeon. Reports baseline diffuse arthritis pain. Limited ROM in the L shoulder from rotator cuff injury >10 years. Denies new headaches or blurry vision. Denies weight loss, new aches or pains, changes in appetite or energy level. Gynecologic History: Age of first menses: 17 years old Age of last menses: 51 years old ; FLB at age 24 Post-menopausal She did breastfeed 4-6 weeks Uterus/Ovaries: S/p TAHBSO- fibroid tumors and ovarian cysts OCP: 3 years HRT: No Pertinent Family history: Breast Cancer: None Ovarian Cancer: None Pancreatic Cancer: None Other: Mother- cecal cancer Social History Marilia Guzman reports that she has never smoked. She has never used smokeless tobacco. She has no history on file for alcohol use. She has no history on file for drug use. ROS: Review of Systems All other systems reviewed and are negative. Physical Examination: BP 121/81 (BP Location: Right arm, Patient Position: Sitting) Pulse 92 Temp 35.7 C (96.3 F) (Temporal) Resp 16 Ht (S) 1.591 m (5' 2.64) Wt 59.9 kg (132 lb 2.7 oz) SpO2 98% BMI 23.68 kg/m Physical Exam Vitals and nursing note reviewed. Constitutional: General: She is not in acute distress. Appearance: Normal appearance. She is not toxic-appearing. HENT: Head: Normocephalic and atraumatic. Eyes: Conjunctiva/sclera: Conjunctivae normal. Cardiovascular: Rate and Rhythm: Normal rate. Pulmonary: Effort: Pulmonary effort is normal. No respiratory distress. Abdominal: General: Abdomen is flat. Palpations: Abdomen is soft. Musculoskeletal: General: No swelling. Normal range of motion. Cervical back: Normal range of motion. Skin: General: Skin is warm and dry. Neurological: Mental Status: She is alert. Psychiatric: Mood and Affect: Mood normal. Breast Examination: Left breast: No masses, skin or nipple changes Right breast: No masses, skin or nipple changes Axillary: 3 discrete LNs, largest measuring about 3-4 cm. ECOG Performance Status: [x] 0 Fully active, able to carry on all pre-disease performance without restriction [] 1 Restricted in physically strenuous activity but ambulatory and able to carry out work of a light or sedentary nature, e.g., light house work, office work [] 2 Ambulatory and capable of all selfcare but unable to carry out any work activities; up and about more than 50% of waking hours [] 3 Capable of only limited selfcare; confined to bed or chair more than 50% of waking hours [] 4 Completely disabled; cannot carry on any selfcare; totally confined to bed or chair [] 5 Results: Labs: Reviewed Lab Results Component Value Date WBC 7.3 12/25/2023 HGB 14.7 12/25/2023 HCT 43.2 12/25/2023 MCV 93 12/25/2023 PLT 278 12/25/2023 Chemistry Lab Results Component Value Date/Time NA 142 12/25/2023 1359 K 4.1 12/25/2023 1359 CL 101 12/25/2023 1359 CO2 26 12/25/2023 1359 BUN 19 12/25/2023 1359 CREATININE 0.79 12/25/2023 1359 Lab Results Component Value Date/Time CALCIUM 10.5 12/25/2023 1359 ALKPHOS 90 12/25/2023 1359 AST 17 12/25/2023 1359 ALT 14 12/25/2023 1359 BILITOT 0.7 12/25/2023 1359 Imaging: Reviewed above in Onc History Pathology: Reviewed above in Onc History Assessment: At least Clinical prognostic stage IIA (mcT1 cN1 cM0) infiltrating ductal carcinoma of the left breast; Dx in 01/2024 ; Grade 3; ER negative, NJ positive (30%), HER2 positive Marilia Guzman is a very pleasant 73 y.o. postmenopausal female with newly diagnosed breast cancer with history of CLL managed expectantly. We reviewed the events that led to her diagnosis and subsequent procedures that have taken place. We discussed the features of her cancer that determine the approach to treatment including the size, grade, presence/absence of lymphovascular invasion, lymph node status and hormone receptor status (including Her2-albert). Given these findings, the following treatment plan has been recommended: Plan: Surgical Plan: Will refer back to surgeon after neoadjuvant chemotherapy Additional biopsy: No further biopsy indicated Radiation Plan: Post-op referral Additional staging scans/DEXA/echo: Baseline staging scans reviewed. Will order NM bone scan to complete staging. Will order baseline echocardiogram in anticipation of HER2 directed therapy. She willrequire echocardiogram every 3 months while receiving HER2 directed therapy. Referral to onco-cardiology. Additional Path info (i.e Ki67, PDL1): Not indicated Gene assays: Not indicated Systemic treatment plan: We reviewed the natural history of early stage HER2- positive breast cancerincluding the role of chemotherapy and HER2-directed therapy in decreasing the risk of recurrence. We discussed the rational for pre- operative systemic therapy including down-staging the breast cancer and nodes, and that risk of recurrence is related to the amount of residual cancer at the time of surgery. The rate of complete response to chemotherapy and HER2-directed agents in patients with HER2-positive, ER-negative breast cancers is over 50%. Given that she has a positive node, we recommended pre-operative systemic therapy. Standard therapy includes docetaxel, carboplatin, trastuzumab and pertuzumab (TCHP) given once every 3 weeks for 6 cycles followed by surgery. If she has a complete response she would complete a total of one year of trastuzumab and pertuzumab; if she has residual disease we will switch to T-DM1. We discussed the regimen, schedule, common toxicities, strategies for managing toxicities and monitoring parameters. The patient had time to ask questions. Consent was signed today. Intent: Curative Clinical trial: Not eligible for our current trials Endocrine therapy: Will discuss at our future visit in light of NJ positive. HER2 treatment: As above Targeted agents: not indicated Chemotherapy: As discussed above BMA: Will discuss at future visit. Access: Referral for mediport in place Supportive meds: Anti-emetics and EMLA cream sent to pharmacy Genetic testing: Referral in place Fertility preservation: Not indicated Other active problems/orders: CLL: managed expectantly with Dr. Edwards We discussed the use cold caps to minimize hair loss and/or decrease to time hair regrowth after chemotherapy. She met with our nursing team to obtain more information. She ultimately declined Surveillance plan: patient to be started on active treatment Follow-up: Will call with results of NM bone scan. FU prior to C2 of TCHP Marilia Guzman expressed understanding of the plan outlined above. Marilia Guzman had ample time toask questions. Marilia Guzman understands she can contact us at any time should she have additionalquestions or issues arise in the interim. Dima Cage MD Breast Medical Oncology [facility] Portions of this note were dictated utilizing voice recognition software. [facility] Work Phone: 1(272) 265-962707-02-2024 Instructions* Patient Instructions* Ivonne Wallis RN - 03/22/2024 9:50 AM EDT 1.) Schedule bone scan, echocardiogram and mediport placement. 2.) Referral to genetic and onco cardiology placed. 3.) Have labs drawn today. 4.) Plan is to start TCHP infusions at [place] in two weeks. Labs to be drawn that Thursday or Thursday prior to treatment. 5.) Follow up with Dr. Cage prior to Cycle 2. 6.) Please call [phone] with questions or concerns. documented [facility] this [facility] Work Phone: 1(617) 308-188606-04-2024 History of Present illness Narrative* Josie Carpenter MD - 02/23/2024 9:00 AM EDT Chief Complaint New left breast cancer History of Present Illness Referring Provider: Yanet Rader 73 year-old non-Ashkenazi Uatsdin, female here with New left breast cancer mcT1 cN1 grade 3 IDC ER neg NJ 30% Her2 positive She is here with her . History: 1) No abnormal mammograms, breast biopsies, or breast surgeries. 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 Bilateral screening mammogram. Scattered fibroglandular tissue. Right breast negative. Left breast masses and left axillary lymphadenopathy. BI- RADS 0. 4) 01/08/2024. CT chest abdomen pelvis for restaging. When compared to prior exam there is interval enlargement of multiple left axillary lymph nodes. No findings in the abdomen. 5) 01/20/2024. Left mammogram and ultrasound at [place]. Masses in the left breast confirm mammographically. Also noted on ultrasound. BI-RADS 4 6) 02/08/2024. Left ultrasound. At 11:00 10 cm from the nipple a 6 x 6 x 5 mm suspicious mass is noted. At 12:00 10 cm from the nipple a 6 x 6 x 6 mm hypoechoic mass is noted. Additionally 2 similar-appearing hypoechoic masses are seen between the 2 masses. At least 5 abnormal lymph nodes are noted.BI-RADS 4. 2 site biopsy is recommended 7) 02/08/2024 2 site left breast biopsy Left breast 11:00 10 cm from the nipple. Grade 3 invasive ductal carcinoma with mucin production. Barrel HydroMARK ER neg NJ 30% Her2 positive Left breast 10:00 2 cm from the nipple. Grade 3 invasive ductal carcinoma. 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 Butterfly HydroMARK 8) masses are noted to span at least 4 cm on mammogram. She presents today for further management and surgical discussion. Left shoulder injury with minimal mobility. 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 Also s/p hyst and BSO G 5 P 2, age of first delivery 24 Less than 5 years OCPs, no fertility treatments, no HRT No family history of breast or ovarian cancer. Mother with cecal cancer at 56 Review of systems A comprehensive ROS was taken on the patient intake form and reviewed with the patient. This form is scanned into the electronic medical record. Constitutional symptoms: Denies generalized fatigue. Denies weight change, fevers/chills, difficulty sleeping Eyes: Denies double vision, glaucoma, cataracts. Ear/nose/throat/mouth: Denies hearing changes, sore throat, sinus problems. Cardiovascular: No chest pain. Denies irregular heartbeat. Denies ankle swelling. Respiratory: No wheezing, cough, or shortness of breath. Gastrointestinal: No abdominal pain, No nausea/vomiting. No indigestion/heartburn. No change in bowel habits. No constipation or diarrhea. Genitourinary: No urinary incontinence. No urinary frequency. No painful urination. Musculoskeletal: No bone pain, no muscle pain, no joint pain. Integumentary: No rash. No masses. No changes in moles. No easy bruising. Neurological: No headaches. No tremors. No numbness/tingling. Psychiatric: No anxiety. No depression. Endocrine: No excessive thirst. Not too hot or too cold. Not tired or fatigued. Hematological/lymphatic: No swollen glands or blood clotting problems. No bruising. Physical exam A superintendent marine oil terminal was offered for all portions of the physical exam. The patient declined. General appearance: appears stated age, alert and oriented x 3 Head: Normocephalic, atraumatic Eyes: conjunctivae/corneas clear. Ears: External ears are normal, hearing is grossly intact. Lungs: normal breathing Heart: regular Abdomen: Soft, nontender, nondistended. Neurologic: grossly normal Lymph nodes: No cervical, supraclavicular or right axillary lymphadenopathy bilaterally. Left axilla with large [address], appears mobile. Breast: A comprehensive breast exam was performed in the seated and supine positions. Breasts are symmetrical. Bilateral nipples are everted. There are no skin changes on arm maneuvers. Bra size: 40D Right: no masses Left: no masses. Biopsies in upper inner breast clean. Results Imaging All breast imaging personally reviewed by me. See HPI Pathology 02/08/2024 2 site left breast biopsy Left breast 11:00 10 cm from the nipple. Grade 3 invasive ductal carcinoma with mucin production. Barrel HydroMARK ER neg NJ 30% Her2 positive Left breast 10:00 2 cm from the nipple. Grade 3 invasive ductal carcinoma. 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 Butterfly HydroMARK Impression: 1) 73 year-old non-Ashkenazi Uatsdin, female here with New left breast cancer mcT1 cN1 grade 3 IDC ER neg NJ 30% Her2 positive 2) Co-morbidities include HTN, DM. Non-smoker 3) No family history of breast or ovarian cancer. Mother with colon cancer Plan: I had a long discussion with Ms. Guzman and her today. We reviewed her imaging and work-up to date and the results. She has a new left breast cancer with bulky metastasis to left axillary lymph nodes. We reviewed the multidisciplinary treatment of breast cancer. There may be a role for staging studies to evaluate for distant metastatic disease. She has an appointment with her oncologist and I will defer to them. CT chest abdomen pelvis have already been performed. We discuss the difference and goals of treatment if there is distant disease. If there is no distant metastatic disease we will treat with curative intent. Given her locally advanced disease that is ER negative and HER2 positive she would be a candidate for neoadjuvant chemotherapy and reassessment for surgery upon completion of treatment. Her cancer can be effectively treated with bracketed lumpectomy. We reviewed that lumpectomy with radiation treatment was equivalent to mastectomy in terms of overall survival and distant recurrence,with more than 20 years of follow-up data. We discussed that lumpectomy with radiation has a slightly higher local recurrence rate, at about 5% in 10 years, versus mastectomy at 1% in 10 years. The risks of lumpectomy including bleeding, infection, and need for reexcision of margins (approximately 20%), was discussed. She was told that lumpectomy is usually a day surgery, and the postoperative recovery was discussed. She was informed that decisions regarding lumpectomy versus mastectomy would not impact need for chemotherapy. I reviewed the films with the radiologist and confirmed that bracketing the current biopsy clips would include all suspicious masses. We discussed the requirements of radiation treatment, and the short term risks (mild burn, tiredness, swelling or shrinking of breast) and the skilled nursing risks (skin changes, angiosarcoma). She has biopsy-proven axillary metastasis. We discussed management of the axilla. The rationale behind sentinel node biopsy was explained, including the smaller risk of lymphedema. Additional risks of surgery, including nerve damage, were discussed. She may be a candidate for sentinel lymph node biopsy after neoadjuvant chemotherapy with plans for complete axillary lymph node dissection with any residual disease. Bilateral breast MRI could be helpful to evaluate the extent of disease and follow treatment response. Unfortunately given her left shoulder mobility she would not be able to complete a breast MRI. She has an appointment with a medical oncologist upon return from her trip. We will follow-up with her after that appointment. She should call with any sooner concerns. documented [facility] Work Phone: 1([phone]) 457-780306-04-2024 Instructions* Patient Instructions* Marshal Sykes RN - 02/23/2024 9:00 AM EDT Medical oncology [facility] Work Phone: 1(735) 540-879305-20-2024 Hospital Discharge instructions* Discharge Instructions* Lucille Duke APRN-PROJECT PRODUCTION ENGINEER - 02/08/2024 11:13 AM EDT AFTER THE TEST A steri-strip and bandage will be placed over the incision. You may shower after 24 hours. Remove bandage after 24 hours. Remove bandage after the shower. Leave the steri-strips in place to fall off on their own. If after 1 week the steri- strips are still on, you may remove them. Avoid swimming or soaking in tub for 3 days. You may have mild discomfort at the test site. If needed, you may take Tylenol (Acetaminophen) for pain. Please avoid taking NSAIDs, Motrin, Advil, Aleve, or ibuprofen for 24 hours following the biopsy. After 24 hours you may resume NSAIDSs. If you take aspirin, Plavix, Coumadin, Xarelto or Eliquis please tell us. If these medications werestopped by your provider, please ask them when to resume. You may have some tenderness, bruising or slight bleeding at the site. Please apply ice packs to the site for 15 minutes on and 15 minutes off for a 2 hour minimum. Most people can return to their usual routine after the procedure. Avoid Strenuous activity for 24 hours. Sleep in a bra the night after your biopsy. Continue to do so for comfort. Call your provider if you have any of the following symptoms : Fever Increased pain Increased bleeding Redness Increased swelling Yellowish drainage Your provider will get the biopsy results within 5 - 7 days. Call your provider with any questions. Patient education brochure and pain/comfort measures have been reviewed. Phone number provided to contact Breast Center if problems arise. Patient verbalized understanding of home going instructions. documented in this [facility] Work Phone: 1(449) 479-893905-20-2024 History of Present illness Narrative* Antonio Rader, SCOTTIE - 02/08/2024 8:30 AM EDT [facility] Marilia Guzman female 1950 73 y.o. [id number] Chief Complaint New patient, biopsy consultation. History Of Present Illness Marilia Guzman is a very pleasant 73 y.o. female seen with her today in the breast center for biopsy consultation. She denies breast surgery or biopsy. She has no family history of breast cancer. She has a personal history of CLL and Dr. Edwards is her med/onc. BREAST IMAGIN02/08/2024 Left breast ultrasound, indicates BI-RADS Category 4. REPRODUCTIVE HISTORY: menarche age 17, , first age 24, breastfed x 6 weeks, OCP's < 5 years, surgical menopause age 51 s/p total hysterectomy, no HRT, scattered fibroglandular tissue FAMILY CANCER HISTORY: Mother: Cecum cancer, age 56 Review of Systems Constitutional: Negative for appetite change, fatigue, fever and unexpected weight change. HENT: Negative for ear pain, hearing loss, nosebleeds, sore throat and trouble swallowing. Eyes: Negative for discharge, itching and visual disturbance. Breast: As stated in HPI. Respiratory: Negative for cough, chest tightness and shortness of breath. Cardiovascular: Negative for chest pain, palpitations and leg swelling. Gastrointestinal: Negative for abdominal pain, constipation, diarrhea and nausea. Endocrine: Negative for cold intolerance and heat intolerance. Genitourinary: Negative for dysuria, frequency, hematuria, pelvic pain and vaginal bleeding. Musculoskeletal: Positive for joint and neck pain. Skin: Negative for color change and rash. Allergic/Immunologic: Negative for environmental allergies and food allergies. Neurological: Negative for dizziness, tremors, speech difficulty, weakness, numbness and headaches. Hematological: Does not bruise/bleed easily. Positive for swollen glands. Psychiatric/Behavioral: Negative for agitation, dysphoric mood and sleep disturbance. The patient is not nervous/anxious. Past Medical History She has a past medical history of Lymphoma (Multi). Surgical History She has a past surgical history that includes Hysterectomy and Oophorectomy. Family History Cancer-related family history is not on file. Social History She has no history on file for tobacco use, alcohol use, and drug use. Allergies Nickel Medications Current Outpatient Medications Medication Instructions empagliflozin (JARDIANCE) 25 mg, oral losartan-hydrochlorothiazide (Hyzaar) 50-12.5 mg tablet 1 tablet, oral, Daily metFORMIN (GLUCOPHAGE) 500 mg, oral, 3 times daily simvastatin (ZOCOR) 20 mg, oral, Nightly Last Recorded Vitals Vitals: 02/08/24 0820 BP: 132/68 Pulse: 81 Resp: 18 Temp: 36.6 C (97.9 F) SpO2: 96% Physical Exam Patient is alert and oriented x3 and in a relaxed and appropriate mood. Her gait is steady and handgrasps are equal. Sclera is clear. The breasts are nearly symmetrical. The tissue is soft without palpable abnormalities, discrete nodules or masses. The skin and nipples appear normal. There is no cervical or supraclavicular lymphadenopathy. Left axillary lymphadenopathy noted in one lymph node. Heart rate and rhythm normal, S1 and S2 appreciated. The lungs are clear to auscultation bilaterally.Abdomen is soft and non-tender. Relevant Results and Imaging I explained the results in depth, along with suggested explanation for follow up recommendations based on the testing results. BI-RADS Category 4 Visit Diagnosis 1. Abnormal finding on breast imaging BI US guided breast localization and biopsy left BI US biopsy of lymph node 2. Mass of left breast, unspecified quadrant BI US guided breast localization and biopsy left 3. Axillary lymphadenopathy Assessment/Plan Abnormal mammogram, left breast mass, left axillary lymphadenopathy, no breast surgery or biopsy, no family history of breast cancer, scattered fibroglandular tissue, history of CLL Plan: Left breast ultrasound guided breast and axillary biopsy. Patient Discussion/Summary Proceed to biopsy. A breast radiology physician will perform the biopsy. Results are usually available in about 7 business days. I will call patient with results and instruct on next steps and plan. IMPORTANT INFORMATION REGARDING YOUR RESULTS If you receive medical information from My [facility] Personal Health Record (online chart) your results will be released into your chart. This means you may view or see results of your biopsy or procedure before I contact you directly. If this occurs, please call the office and we will discuss your results over the phone. You can see your health information, review clinical summaries from office visits & test results online when you follow your health with MY Chart, a personal health record. To sign up go to [email or web address]. If you need assistance with signing up or trouble getting into your account call [employer] Patient Line 13/04 at [phone]. My office phone number is [phone] if you need to get in touch with me or have additional questions or concerns. Thank you for choosing [facility] and trusting me as your healthcare provider. I look forward to seeing you again at your next office visit. I am honored to be a provider on your health care team and I remain dedicated to helping you achieve your health goals. SCOTTIE Horner documented in this [facility] Work Phone: [phone]) [phone] History of Present illness Narrative* Chava Edwards MD - 01/22/2024 11:00 AM EDT Cancer History: Treatment Synopsis: Accidentally discovered SLL, on cecal polyp, on routine colonoscopy in August 2016 History of present illness: The patient is a 66-year-old woman whose mother passed from metastatic CA cecum. The patient is episcopal in obtaining colonoscopies. A recent colonoscopy by you found a 4 mm sessile ascending colonic polyp, two 2 mm sigmoid colonic polyps. Histology of cecal polyp revealed dense lymphoid infiltrate consisting of small lymphocytes composed of B lymphocytes positive for CD5, CD23, and BCL-2 and negative for CD10 and cyclin D1. The ascending colonic polyp and sigmoid colonic polyp did not reveal any abnormalities. The patient is asymptomatic. You referred her to me for further evaluation and management. The patient had come for follow-up on 05/18/2019. The patient has returned after a hiatus of 2.5 years. Apparently the patient had a mammogram on 05/04/2019 and it revealed possible lymph node in the left axilla but there was no abnormality in the breast itself. There is a palpable lymph node in the left axilla. Since last evaluation, the patient has done reasonably well. She did have left ear infection which resolved with therapy. The patient and her had come for follow-up on January 22, 2024 regarding history of CLL/SLL the patient is asymptomatic but anxious to know results of the tests performed. History of Present Illness: ID Statement: MARILIA GUZMAN is a 71 year old Female Chief Complaint: follow-up Interval History: The patient and her had come for a follow up on 06/14/2021 regarding her history of CLL / SLL. She reports doing well and denies any symptoms such as weight loss, fevers, night sweats and GI complaints. The patient has returned after hiatus of almost 3 years on December 25, 2023 regarding history of CLL/SLL. Since last evaluation the patient underwent left knee replacement in November 2021 also had URI-like symptoms and was placed on antibiotics last fall 2022. The patient has known history of CLL. In the past she had presented with left axillary lymph node. Breast exam as well as mammograms did not reveal any evidence of lumps in the breast. The patient was then lost to follow-up. She now presents with lump in the left axilla. Denied history of fevers, weight loss, night sweats, chest pain, shortness of breath, nausea, vomiting, hematemesis, melena, hematochezia and hematuria. Past medical history 1. CLL 2. HTN 3. DM Past surgical history 1. Cholecystectomy 2. 3. EVER-BSO Last mammogram was 7 years ago. Last colonoscopy was 1 year ago. Review of Systems: System Review All other systems have been reviewed and are negative for complaint. Constitutional NEGATIVE: Fever, Chills, Anorexia, Weight Loss, Malaise Eyes NEGATIVE: Blurry Vision, Drainage, Diploplia, Redness, Vision Loss/ Change ENMT NEGATIVE: Nasal Discharge, Nasal Congestion, Ear Pain, Mouth Pain, Throat Pain Respiratory NEGATIVE: Dry Cough, Productive Cough, Hemoptysis, Wheezing, Shortness of Breath Cardiology NEGATIVE: Chest Pain, Dyspnea on Exertion, Orthopnea, Palpitations, Syncope Gastrointestinal NEGATIVE: Abdominal Pain, Constipation, Diarrhea, Nausea, Vomiting Comments abdominal bloating Genitourinary NEGATIVE: Discharge, Dysuria, Flank Pain, Frequency, Hematuria Musculoskeletal NEGATIVE: Decreased ROM, Pain, Swelling, Stiffness, Weakness Neurological NEGATIVE: Dizziness, Confusion, Headache, Seizures, Syncope Psychiatric NEGATIVE: Mood Changes, Anxiety, Hallucinations, Sleep Changes, Suicidal Ideas Skin NEGATIVE: Mass, Pain, Pruritus, Rash, Ulcer Endocrine NEGATIVE: Heat Intolerance, Cold Intolerance, Sweat, Polyuria, Thirst Hematologic/Lymph NEGATIVE: Anemia, Bruising, Easy Bleeding, Night Sweats, Petechiae Allergic/Immunologic NEGATIVE: Anaphylaxis, Itchy/ Teary Eyes, Itching, Sneezing, Swelling Breast NEGATIVE: Pain, Mass, Discharge, Nipple Itching, Gynecomastia Allergies and Intolerances: Intolerances: false nail adhesive: Environment, Unknown, Active Outpatient Medication Profile: * Patient Currently Takes Medications as of 14-Jun-2021 13:56 documented in Structured Notes Vitamin D3 2000 intl units oral capsule : Last Dose Taken: , 1 cap(s) orally once a day Hurst-3: Last Dose Taken: , orally B Complex 50: Last Dose Taken: meloxicam 15 mg oral tablet: Last Dose Taken: , 1 tab(s) orally once a day metFORMIN 500 mg oral tablet, extended release: Last Dose Taken: , orally 3 times a day Jardiance 25 mg oral tablet: Last Dose Taken: , 1 tab(s) orally once a day (in the morning) lisinopril-hydrochlorothiazide 20 mg-12.5 mg oral tablet: Last Dose Taken: , 0.5 tab(s) orally oncea day Medical History: DM (diabetes mellitus): ICD-10: E11.9, Status: Active HTN (hypertension): ICD-10: I10, Status: Active CLL (chronic lymphocytic leukemia): ICD-10: C91.90, Status: Active Surg History: S/P EVER-BSO: ICD-10: Z90.710, Status: Active History of section: ICD-10: Z98.891, Status: Active S/P cholecystectomy: ICD-10: Z90.49, Status: Active Family History: Cancer, colon (Mother Age Unknown) Social History: Social Substance History: Social History denies smoking, alcohol and drug use Smoking Status never smoker Tobacco Use denies Alcohol Use denies Drug Use denies Additional History The patient is a 68 year old female who is with 2 children. 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 No history of tobacco, alcohol, or drug abuse. (1) Performance: ECOG Performance Status: 0 Fully Active Vitals and Measurements: Vitals: Temp: 36.5 HR: 73 RR: 18 BP: 112/76 SPO2%: 99 Measurements: HT(cm): 158.1 WT(kg): 64.6 BSA: 1.68 BMI: 25.8 Physical Exam: Constitutional: Well developed, awake/alert/oriented x3, no distress, alert and cooperative Eyes: PERRL, EOMI, clear sclera ENMT: mucous membranes moist, no apparent injury, no lesions seen Head/Neck: Neck supple, no apparent injury, thyroid without mass or tenderness, No JVD, trachea midline, no bruits Respiratory/Thorax: Patent airways, CTAB, normal breath sounds with good chest expansion, thorax symmetric Cardiovascular: Regular, rate and rhythm, no murmurs, 2+ equal pulses of the extremities, normal S 1and S 2 Gastrointestinal: Nondistended, soft, non-tender, no rebound tenderness or guarding, no masses palpable, no organomegaly, +BS, no bruits Genitourinary: No Discharge, vesicles or other abnormalities Musculoskeletal: ROM intact, no joint swelling, normal strength Extremities: normal extremities, no cyanosis edema, contusions or wounds, no clubbing Neurological: alert and oriented x3, intact senses, motor, response and reflexes, normal strength Breast: No masses, tenderness, no discharge or discoloration Lymphatic: Palpable left axial lymph node. Psychological: Appropriate mood and behavior Skin: Warm and dry, no lesions, no rashes Lab Results: Assessment and Plan: 1. CLL / SLL Polyp discovered on a colonoscopy. The physical exam is pertinent for a palpable left axial lymph node; otherwise, the physical exam was within normal limits. I reviewed the lab data with the patient. CBC obtained on 05/13/2021 revealed WBC 7.1, HGB 14.0, Continue to be followed clinically. Return in 3 months. The patient has returned after hiatus of almost 3 years on December 25, 2023 regarding history of CLL/SLL. Since last evaluation the patient underwent left knee replacement in November 2021 also had URI-like symptoms and was placed on antibiotics last fall 2022. The patient has known history of CLL. In the past she had presented with left axillary lymph node. Breast exam as well as mammograms did not reveal any evidence of lumps in the breast. The patient was then lost to follow-up. She now presents with lump in the left axilla. Denied history of fevers, weight loss, night sweats, chest pain, shortness of breath, nausea, vomiting, hematemesis, melena, hematochezia and hematuria. Physical examination revealed 2 palpable lymph nodes in the left axilla. The larger 1 in the anterior axillary line measured 1 inch x 1 inch and the 1 in mid axillary line measured 1 and half centimeter by 1 and half centimeters. I had a detailed discussion with the patient explained to her that these most likely are manifestations of underlying CLL/SLL. I have recommended a mammogram as well as CT scan of chest abdomen and pelvis. Patient to return in 4 weeks. The patient and her had come for follow-up on January 22, 2024 regarding history of CLL/SLL. Mammogram/ultrasound on January 20, 2024 revealed cluster of multiple breast masses BI-RADS Category 4. Had a detailed discussion with the patient and her explained to them that this all could be manifestations of underlying CLL/SLL. However, it would be prudent to rule out underlying primary breastCA. Referred to surgery Dr. Carpenter 2. Bloating I have recommended Gas-x three times a day. 3. HTN Continue lisinopril 20 mg/hydrochlorothiazide 12.5 mg p.o. daily 4. DM Continue Metformin 500 mg p.o. 3 times daily Jardiance 25 mg p.o. daily. 5. The patient is to return in six months. documented in this [facility] Work Phone: 1([phone]) 935-525705-01-2024 NoteBI-RADS Category: 4 Suspicious. Recommendation: Surgical Consultation and Biopsy. Recommended Date: Immediate. Laterality: Bilateral. Signed by: Saad Mariano 01/20/2024 2:26 PM Dictation workstation: [id number] History of Present illness Narrative* Chava Edwards MD - 12/25/2023 1:40 PM EDT Cancer History: Treatment Synopsis: Accidentally discovered SLL, on cecal polyp, on routine colonoscopy in August 2016 History of present illness: The patient is a 66-year-old woman whose mother passed from metastatic CA cecum. The patient is episcopal in obtaining colonoscopies. A recent colonoscopy by you found a 4 mm sessile ascending colonic polyp, two 2 mm sigmoid colonic polyps. Histology of cecal polyp revealed dense lymphoid infiltrate consisting of small lymphocytes composed of B lymphocytes positive for CD5, CD23, and BCL-2 and negative for CD10 and cyclin D1. The ascending colonic polyp and sigmoid colonic polyp did not reveal any abnormalities. The patient is asymptomatic. You referred her to me for further evaluation and management. The patient had come for follow-up on 05/18/2019. The patient has returned after a hiatus of 2.5 years. Apparently the patient had a mammogram on 05/04/2019 and it revealed possible lymph node in the left axilla but there was no abnormality in the breast itself. There is a palpable lymph node in the left axilla. Since last evaluation, the patient has done reasonably well. She did have left ear infection which resolved with therapy. History of Present Illness: ID Statement: MARILIA GUZMAN is a 71 year old Female Chief Complaint: follow-up Interval History: The patient and her had come for a follow up on 06/14/2021 regarding her history of CLL / SLL. She reports doing well and denies any symptoms such as weight loss, fevers, night sweats and GI complaints. The patient has returned after hiatus of almost 3 years on December 25, 2023 regarding history of CLL/SLL. Since last evaluation the patient underwent left knee replacement in November 2021 also had URI-like symptoms and was placed on antibiotics last fall 2022. The patient has known history of CLL. In the past she had presented with left axillary lymph node. Breast exam as well as mammograms did not reveal any evidence of lumps in the breast. The patient was then lost to follow-up. She now presents with lump in the left axilla. Denied history of fevers, weight loss, night sweats, chest pain, shortness of breath, nausea, vomiting, hematemesis, melena, hematochezia and hematuria. Past medical history 1. CLL 2. HTN 3. DM Past surgical history 1. Cholecystectomy 2. 3. EVER-BSO Last mammogram was 7 years ago. Last colonoscopy was 1 year ago. Review of Systems: System Review All other systems have been reviewed and are negative for complaint. Constitutional NEGATIVE: Fever, Chills, Anorexia, Weight Loss, Malaise Eyes NEGATIVE: Blurry Vision, Drainage, Diploplia, Redness, Vision Loss/ Change ENMT NEGATIVE: Nasal Discharge, Nasal Congestion, Ear Pain, Mouth Pain, Throat Pain Respiratory NEGATIVE: Dry Cough, Productive Cough, Hemoptysis, Wheezing, Shortness of Breath Cardiology NEGATIVE: Chest Pain, Dyspnea on Exertion, Orthopnea, Palpitations, Syncope Gastrointestinal NEGATIVE: Abdominal Pain, Constipation, Diarrhea, Nausea, Vomiting Comments abdominal bloating Genitourinary NEGATIVE: Discharge, Dysuria, Flank Pain, Frequency, Hematuria Musculoskeletal NEGATIVE: Decreased ROM, Pain, Swelling, Stiffness, Weakness Neurological NEGATIVE: Dizziness, Confusion, Headache, Seizures, Syncope Psychiatric NEGATIVE: Mood Changes, Anxiety, Hallucinations, Sleep Changes, Suicidal Ideas Skin NEGATIVE: Mass, Pain, Pruritus, Rash, Ulcer Endocrine NEGATIVE: Heat Intolerance, Cold Intolerance, Sweat, Polyuria, Thirst Hematologic/Lymph NEGATIVE: Anemia, Bruising, Easy Bleeding, Night Sweats, Petechiae Allergic/Immunologic NEGATIVE: Anaphylaxis, Itchy/ Teary Eyes, Itching, Sneezing, Swelling Breast NEGATIVE: Pain, Mass, Discharge, Nipple Itching, Gynecomastia Allergies and Intolerances: Intolerances: false nail adhesive: Environment, Unknown, Active Outpatient Medication Profile: * Patient Currently Takes Medications as of 14-Jun-2021 13:56 documented in Structured Notes Vitamin D3 2000 intl units oral capsule : Last Dose Taken: , 1 cap(s) orally once a day Hurst-3: Last Dose Taken: , orally B Complex 50: Last Dose Taken: meloxicam 15 mg oral tablet: Last Dose Taken: , 1 tab(s) orally once a day metFORMIN 500 mg oral tablet, extended release: Last Dose Taken: , orally 3 times a day Jardiance 25 mg oral tablet: Last Dose Taken: , 1 tab(s) orally once a day (in the morning) lisinopril-hydrochlorothiazide 20 mg-12.5 mg oral tablet: Last Dose Taken: , 0.5 tab(s) orally oncea day Medical History: DM (diabetes mellitus): ICD-10: E11.9, Status: Active HTN (hypertension): ICD-10: I10, Status: Active CLL (chronic lymphocytic leukemia): ICD-10: C91.90, Status: Active Surg History: S/P EVER-BSO: ICD-10: Z90.710, Status: Active History of section: ICD-10: Z98.891, Status: Active S/P cholecystectomy: ICD-10: Z90.49, Status: Active Family History: Cancer, colon (Mother Age Unknown) Social History: Social Substance History: Social History denies smoking, alcohol and drug use Smoking Status never smoker Tobacco Use denies Alcohol Use denies Drug Use denies Additional History The patient is a 68 year old female who is with 2 children. 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 No history of tobacco, alcohol, or drug abuse. (1) Performance: ECOG Performance Status: 0 Fully Active Vitals and Measurements: Vitals: Temp: 36.5 HR: 73 RR: 18 BP: 112/76 SPO2%: 99 Measurements: HT(cm): 158.1 WT(kg): 64.6 BSA: 1.68 BMI: 25.8 Physical Exam: Constitutional: Well developed, awake/alert/oriented x3, no distress, alert and cooperative Eyes: PERRL, EOMI, clear sclera ENMT: mucous membranes moist, no apparent injury, no lesions seen Head/Neck: Neck supple, no apparent injury, thyroid without mass or tenderness, No JVD, trachea midline, no bruits Respiratory/Thorax: Patent airways, CTAB, normal breath sounds with good chest expansion, thorax symmetric Cardiovascular: Regular, rate and rhythm, no murmurs, 2+ equal pulses of the extremities, normal S 1and S 2 Gastrointestinal: Nondistended, soft, non-tender, no rebound tenderness or guarding, no masses palpable, no organomegaly, +BS, no bruits Genitourinary: No Discharge, vesicles or other abnormalities Musculoskeletal: ROM intact, no joint swelling, normal strength Extremities: normal extremities, no cyanosis edema, contusions or wounds, no clubbing Neurological: alert and oriented x3, intact senses, motor, response and reflexes, normal strength Breast: No masses, tenderness, no discharge or discoloration Lymphatic: Palpable left axial lymph node. Psychological: Appropriate mood and behavior Skin: Warm and dry, no lesions, no rashes Lab Results: Assessment and Plan: 1. CLL / SLL Polyp discovered on a colonoscopy. The physical exam is pertinent for a palpable left axial lymph node; otherwise, the physical exam was within normal limits. I reviewed the lab data with the patient. CBC obtained on 05/13/2021 revealed WBC 7.1, HGB 14.0, Continue to be followed clinically. Return in 3 months. The patient has returned after hiatus of almost 3 years on December 25, 2023 regarding history of CLL/SLL. Since last evaluation the patient underwent left knee replacement in November 2021 also had URI-like symptoms and was placed on antibiotics last fall 2022. The patient has known history of CLL. In the past she had presented with left axillary lymph node. Breast exam as well as mammograms did not reveal any evidence of lumps in the breast. The patient was then lost to follow-up. She now presents with lump in the left axilla. Denied history of fevers, weight loss, night sweats, chest pain, shortness of breath, nausea, vomiting, hematemesis, melena, hematochezia and hematuria. Physical examination revealed 2 palpable lymph nodes in the left axilla. The larger 1 in the anterior axillary line measured 1 inch x 1 inch and the 1 in mid axillary line measured 1 and half centimeter by 1 and half centimeters. I had a detailed discussion with the patient explained to her that these most likely are manifestations of underlying CLL/SLL. I have recommended a mammogram as well as CT scan of chest abdomen and pelvis. Patient to return in 4 weeks. 2. Bloating I have recommended Gas-x three times a day. 3. HTN Continue lisinopril 20 mg/hydrochlorothiazide 12.5 mg p.o. daily 4. DM Continue Metformin 500 mg p.o. 3 times daily Jardiance 25 mg p.o. daily. 5. The patient is to return in six months. 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 History of present illness: The patient is a 66-year-old woman whose mother passed from metastatic CA cecum. The patient is episcopal in obtaining colonoscopies. A recent colonoscopy by you found a 4 mm sessile ascending colonic polyp, two 2 mm sigmoid colonic polyps. Histology of cecal polyp revealed dense lymphoid infiltrate consisting of small lymphocytes composed of B lymphocytes positive for CD5, CD23, and BCL-2 and negative for CD10 and cyclin D1. The ascending colonic polyp and sigmoid colonic polyp did not reveal any abnormalities. The patient is asymptomatic. You referred her to me for further evaluation and management. The patient had come for follow-up on 05/18/2019. The patient has returned after a hiatus of 2.5 years. Apparently the patient had a mammogram on 05/04/2019 and it revealed possible lymph node in the left axilla but there was no abnormality in the breast itself. There is a palpable lymph node in the left axilla. Since last evaluation, the patient has done reasonably well. She did have left ear infection which resolved with therapy. The patient and her had come for follow-up on January 22, 2024 regarding history of CLL/SLL the patient is asymptomatic but anxious to know results of the tests performed. History of Present Illness: ID Statement: MARILIA GUZMAN is a 71 year old Female Chief Complaint: follow-up Interval History: The patient and her had come for a follow up on 06/14/2021 regarding her history of CLL / SLL. She reports doing well and denies any symptoms such as weight loss, fevers, night sweats and GI complaints. The patient has returned after hiatus of almost 3 years on July 28, 2024 regarding history of CLL/SLL. Since last evaluation the patient underwent left knee replacement in November 2021 also had URI-like symptoms and was placed on antibiotics last fall 2022. The patient has known history of CLL. Inthe past she had presented with left axillary lymph node. Breast exam as well as mammograms did [facility] any evidence of lumps in the breast. The patient was then lost to follow-up. She now presents with lump in the left axilla. Denied history of fevers, weight loss, night sweats, chest pain, shortness of breath, nausea, vomiting, hematemesis, melena, hematochezia and hematuria. Patient had come for follow-up on [place] 04/2025 regarding history of CLL/SLL. The patient is asymptomatic. Past medical history 1. CLL 2. HTN 3. DM Past surgical history 1. Cholecystectomy 2. 3. EVER-BSO Last mammogram was 7 years ago. Last colonoscopy was 1 year ago. Review of Systems: System Review All other systems have been reviewed and are negative for complaint. Constitutional NEGATIVE: Fever, Chills, Anorexia, Weight Loss, Malaise Eyes NEGATIVE: Blurry Vision, Drainage, Diploplia, Redness, Vision Loss/ Change ENMT NEGATIVE: Nasal Discharge, Nasal Congestion, Ear Pain, Mouth Pain, Throat Pain Respiratory NEGATIVE: Dry Cough, Productive Cough, Hemoptysis, Wheezing, Shortness of Breath Cardiology NEGATIVE: Chest Pain, Dyspnea on Exertion, Orthopnea, Palpitations, Syncope Gastrointestinal NEGATIVE: Abdominal Pain, Constipation, Diarrhea, Nausea, Vomiting Comments abdominal bloating Genitourinary NEGATIVE: Discharge, Dysuria, Flank Pain, Frequency, Hematuria Musculoskeletal NEGATIVE: Decreased ROM, Pain, Swelling, Stiffness, Weakness Neurological NEGATIVE: Dizziness, Confusion, Headache, Seizures, Syncope Psychiatric NEGATIVE: Mood Changes, Anxiety, Hallucinations, Sleep Changes, Suicidal Ideas Skin NEGATIVE: Mass, Pain, Pruritus, Rash, Ulcer Endocrine NEGATIVE: Heat Intolerance, Cold Intolerance, Sweat, Polyuria, Thirst Hematologic/Lymph NEGATIVE: Anemia, Bruising, Easy Bleeding, Night Sweats, Petechiae Allergic/Immunologic NEGATIVE: Anaphylaxis, Itchy/ Teary Eyes, Itching, Sneezing, Swelling Breast NEGATIVE: Pain, Mass, Discharge, Nipple Itching, Gynecomastia Allergies and Intolerances: Intolerances: false nail adhesive: Environment, Unknown, Active Outpatient Medication Profile: * Patient Currently Takes Medications as of 14-Jun-2021 13:56 documented in Structured Notes Vitamin D3 2000 intl units oral capsule : Last Dose Taken: , 1 cap(s) orally once a day Hurst-3: Last Dose Taken: , orally B Complex 50: Last Dose Taken: meloxicam 15 mg oral tablet: Last Dose Taken: , 1 tab(s) orally once a day metFORMIN 500 mg oral tablet, extended release: Last Dose Taken: , orally 3 times a day Jardiance 25 mg oral tablet: Last Dose Taken: , 1 tab(s) orally once a day (in the morning) lisinopril-hydrochlorothiazide 20 mg-12.5 mg oral tablet: Last Dose Taken: , 0.5 tab(s) orally oncea day Medical History: DM (diabetes mellitus): ICD-10: E11.9, Status: Active HTN (hypertension): ICD-10: I10, Status: Active CLL (chronic lymphocytic leukemia): ICD-10: C91.90, Status: Active Surg History: S/P EVER-BSO: ICD-10: Z90.710, Status: Active History of section: ICD-10: Z98.891, Status: Active S/P cholecystectomy: ICD-10: Z90.49, Status: Active Family History: Cancer, colon (Mother Age Unknown) Social History: Social Substance History: Social History denies smoking, alcohol and drug use Smoking Status never smoker Tobacco Use denies Alcohol Use denies Drug Use denies Additional History The patient is a 68 year old female who is with 2 children. 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 No history of tobacco, alcohol, or drug abuse. (1) Performance: ECOG Performance Status: 0 Fully Active Vitals and Measurements: Vitals: Temp: 36.5 HR: 73 RR: 18 BP: 112/76 SPO2%: 99 Measurements: HT(cm): 158.1 WT(kg): 64.6 BSA: 1.68 BMI: 25.8 Physical Exam: Constitutional: Well developed, awake/alert/oriented x3, no distress, alert and cooperative Eyes: PERRL, EOMI, clear sclera ENMT: mucous membranes moist, no apparent injury, no lesions seen Head/Neck: Neck supple, no apparent injury, thyroid without mass or tenderness, No JVD, trachea midline, no bruits Respiratory/Thorax: Patent airways, CTAB, normal breath sounds with good chest expansion, thorax symmetric Cardiovascular: Regular, rate and rhythm, no murmurs, 2+ equal pulses of the extremities, normal S 1and S 2 Gastrointestinal: Nondistended, soft, non-tender, no rebound tenderness or guarding, no masses palpable, no organomegaly, +BS, no bruits Genitourinary: No Discharge, vesicles or other abnormalities Musculoskeletal: ROM intact, no joint swelling, normal strength Extremities: normal extremities, no cyanosis edema, contusions or wounds, no clubbing Neurological: alert and oriented x3, intact senses, motor, response and reflexes, normal strength Breast: No masses, tenderness, no discharge or discoloration Lymphatic: Palpable left axial lymph node. Psychological: Appropriate mood and behavior Skin: Warm and dry, no lesions, no rashes Lab Results: Assessment and Plan: 1. CLL / SLL Polyp discovered on a colonoscopy. The physical exam is pertinent for a palpable left axial lymph node; otherwise, the physical exam was within normal limits. I reviewed the lab data with the patient. CBC obtained on 05/13/2021 revealed WBC 7.1, HGB 14.0, Continue to be followed clinically. Return in 3 months. The patient has returned after hiatus of almost 3 years on December 25, 2023 regarding history of CLL/SLL. Since last evaluation the patient underwent left knee replacement in November 2021 also had URI-like symptoms and was placed on antibiotics last fall 2022. The patient has known history of CLL. In the past she had presented with left axillary lymph node. Breast exam as well as mammograms did not reveal any evidence of lumps in the breast. The patient was then lost to follow-up. She now presents with lump in the left axilla. Denied history of fevers, weight loss, night sweats, chest pain, shortness of breath, nausea, vomiting, hematemesis, melena, hematochezia and hematuria. Physical examination revealed 2 palpable lymph nodes in the left axilla. The larger 1 in the anterior axillary line measured 1 inch x 1 inch and the 1 in mid axillary line measured 1 and half centimeter by 1 and half centimeters. I had a detailed discussion with the patient explained to her that these most likely are manifestations of underlying CLL/SLL. I have recommended a mammogram as well as CT scan of chest abdomen and pelvis. Patient to return in 4 weeks. The patient and her had come for follow-up on 2023 regarding history of CLL/SLL.Mammogram/ultrasound on January 20, 2024 revealed cluster of multiple breast masses BI-RADS Category 4. Had a detailed discussion with the patient and her explained to them that this all could be manifestations of underlying CLL/SLL. However, it would be prudent to rule out underlying primary breast CA. Patient had come for follow-up on [place] 04/2025 regarding history of CLL/SLL. The patient is asymptomatic. Physical examination did not reveal any lymphadenopathy. Spleen tip palpable on left upper quadrant. CBC on January 23, 2025 revealed WBC 5.6, hemoglobin 12.6 g/dL, platelets 264,000/mm . No therapeutic recommendations. 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 2. Bloating I have recommended Gas-x three times a day. 3. HTN Continue lisinopril 20 mg/hydrochlorothiazide 12.5 mg p.o. daily 4. DM Continue Metformin 500 mg p.o. 3 times daily Jardiance 25 mg p.o. daily. 5. The patient is to return in six months. [facility]: Evaluation noteThere may be information available, but it has not been provided by the sender.[facility] Work Phone: Evaluation note* Diagnosis Onset Date Resolution Status Diabetes type 2, uncontrolled acute Hyperlipemia acute Hypertension [facility] Work Phone: Evaluation note* Diagnosis Onset Date Resolution Status Osteoarthritis acute Hypertension [facility] Work Phone: Evaluation note* Diagnosis CLL (chronic lymphocytic leukemia) (CMS/HCC)- Primary Chronic lymphoid leukemia, without mention of having achieved remission documented in this encounter [facility] Work Phone: Evaluation note* Diagnosis CLL (chronic lymphocytic leukemia) (Multi) Chronic lymphoid leukemia, without mention of having achieved remission documented in this encounter [facility] Work Phone: Evaluation note* Diagnosis CLL (chronic lymphocytic leukemia) (Multi) Chronic lymphoid leukemia, without mention of having achieved remission documented in this encounter [facility] Work Phone: Evaluation note* Diagnosis Onset Date Resolution Status Diabetes type 2, uncontrolled acute Hyperlipemia acute Hypertension chronic Bilateral otitis media acute Maxillary sinusitis, acute a cute Diabetes type 2, uncontrolled acute Lymphoma acute Hypertension [facility] Work Phone: Evaluation note* Diagnosis CLL (chronic lymphocytic leukemia) (Multi) Chronic lymphoid leukemia, without mention of having achieved remission Other abnormal and inconclusive findings on diagnostic imaging of breast documented in this encounter [facility] Work Phone: [phone] note* Diagnosis Other abnormal and inconclusive findings on diagnostic imaging of breast documented in this encounter [facility] Work Phone: [phone] note* Diagnosis CLL (chronic lymphocytic leukemia) (Multi) Chronic lymphoid leukemia, without mention of having achieved remission Abnormal mammogram Abnormal mammogram, unspecified documented in this encounter [facility] Work Phone: [phone] note* Diagnosis Abnormal finding on breast imaging- Primary Mass of left breast, unspecified quadrant Axillary lymphadenopathy Enlargement of lymph nodes documented in this encounter [facility] Work Phone: [phone] note* Diagnosis Other abnormal and inconclusive findings on diagnostic imaging of breast documented in this encounter [facility] Work Phone: [phone] note* Diagnosis Abnormal finding on breast imaging documented in this encounter [facility] Work Phone: [phone] note* Diagnosis Other abnormal and inconclusive findings on diagnostic imaging of breast documented in this encounter [facility] Work Phone: [phone] note* Diagnosis Mass of left breast, unspecified quadrant- Primary Abnormal finding on breast imaging documented in this encounter [facility] Work Phone: [phone] note* Diagnosis Malignant neoplasm of upper-inner quadrant of left breast in female, estrogen receptor negative (Multi)- Primary documented in this encounter [facility] Work Phone: [phone] note* Diagnosis Malignant neoplasm of upper-inner quadrant of left breast in female, estrogen receptor negative- Primary documented in this encounter [facility] Work Phone: Evaluation note* Diagnosis Malignant neoplasm of upper-inner quadrant of left breast in female, estrogen receptor negative documented in this encounter [facility] Work Phone: Evaluation note* Diagnosis Malignant neoplasm of upper-inner quadrant of left breast in female, estrogen receptor negative Malignant neoplasm of upper-inner quadrant of left breast in female, estrogen receptor negative documented in this encounter [facility] Work Phone: Evaluation note* Diagnosis CLL (chronic lymphocytic leukemia) (Multi) Chronic lymphoid leukemia, without mention of having achieved remission documented in this encounter [facility] Work Phone: Evaluation note* Diagnosis Malignant neoplasm of upper-inner quadrant of left breast in female, estrogen receptor negative- Primary Malignant neoplasm of upper-inner quadrant of left breast in female, estrogen receptor negative- Primary Malignant neoplasm of upper-inner quadrant of left breast in female, estrogen receptor negative documented in this encounter [facility] Work Phone: Evaluation note* Diagnosis Malignant neoplasm of upper-inner quadrant of left breast in female, estrogen receptor negative Malignant neoplasm of upper-inner quadrant of left breast in female, estrogen receptor negative- Primary Malignant neoplasm of upper-inner quadrant of left breast in female, estrogen receptor negative documented in this encounter [facility] Work Phone: Evaluation note* Diagnosis Malignant neoplasm of upper-inner quadrant of left breast in female, estrogen receptor negative- Primary Malignant neoplasm of upper-inner quadrant of left breast in female, estrogen receptor negative Encounter for monitoring cardiotoxic drug therapy Malignant neoplasm of upper-inner quadrant of left breast in female, estrogen receptor negative documented in this encounter [facility] Work Phone: Evaluation note* Diagnosis Malignant neoplasm of upper-inner quadrant of left breast in female, estrogen receptor negative- Primary Edema of right lower leg- Primary Hypokalemia Hypopotassemia Hypomagnesemia Disorders of magnesium metabolism Shortness of breath Encounter for monitoring cardiotoxic drug therapy Malignant neoplasm of upper-inner quadrant of left breast in female, estrogen receptor negative Malignant neoplasm of upper-inner quadrant of left breast in female, estrogen receptor negative documented in this encounter [facility] Work Phone: Evaluation note* Diagnosis Malignant neoplasm of upper-inner quadrant of left breast in female, estrogen receptor negative- Primary Edema of right lower leg Malignant neoplasm of upper-inner quadrant of left breast in female, estrogen receptor negative documented in this encounter [facility] Work Phone: [phone] note* Diagnosis Malignant neoplasm of upper-inner quadrant of left breast in female, estrogen receptor negative- Primary Malignant neoplasm of upper-inner quadrant of left breast in female, estrogen receptor negative Malignant neoplasm of upper-inner quadrant of left breast in female, estrogen receptor negative documented in this encounter [facility] Work Phone: [phone] note* Diagnosis Malignant neoplasm of upper-inner quadrant of left breast in female, estrogen receptor negative- Primary Other abnormal and inconclusive findings on diagnostic imaging of breast Malignant neoplasm of upper-inner quadrant of left breast in female, estrogen receptor negative documented in this encounter [facility] Work Phone: [phone] note* Diagnosis Malignant neoplasm of upper-inner quadrant of left breast in female, estrogen receptor negative- Primary Malignant neoplasm of upper-inner quadrant of left breast in female, estrogen receptor negative Post-op pain Other acute postoperative pain documented in this encounter [facility] Work Phone: [phone] note* Diagnosis Other abnormal and inconclusive findings on diagnostic imaging of breast documented in this encounter [facility] Work Phone: [phone] note* Diagnosis Malignant neoplasm of upper-inner quadrant of left breast in female, estrogen receptor negative Other abnormal and inconclusive findings on diagnostic imaging of breast documented in this encounter [facility] Work Phone: [phone] note* Diagnosis Malignant neoplasm of upper-inner quadrant of left breast in female, estrogen receptor negative (Multi)- Primary Encounter for antineoplastic chemotherapy Other specified disorders of breast documented in this encounter [facility] Work Phone: [phone] note* Diagnosis Malignant neoplasm of upper-inner quadrant of left breast in female, estrogen receptor negative (Multi) Encounter for antineoplastic chemotherapy documented in this encounter [facility] Work Phone: [phone] note* Diagnosis Malignant neoplasm of upper-inner quadrant of left breast in female, estrogen receptor negative (Multi) documented in this encounter [facility] Work Phone: [phone] note* Diagnosis Malignant neoplasm of upper-inner quadrant of left breast in female, estrogen receptor negative (Multi) documented in this encounter [facility] Work Phone: [phone] note* Diagnosis CLL (chronic lymphocytic leukemia) (Multi)- Primary Chronic lymphoid leukemia, without mention of having achieved remission Malignant neoplasm of upper-inner quadrant of left breast in female, estrogen receptor negative (Multi) Encounter for monitoring cardiotoxic drug therapy Essential hypertension, benign Mixed hyperlipidemia Mitral valve prolapse Mitral valve disorders Shortness of breath documented in this encounter [facility] Work Phone: [phone] note* Diagnosis Malignant neoplasm of upper-inner quadrant of left breast in female, estrogen receptor negative (Multi)- Primary documented in this encounter [facility] Work Phone: [phone] note* Diagnosis Malignant neoplasm of upper-inner quadrant of left breast in female, estrogen receptor negative (Multi) documented in this encounter [facility] Work Phone: [phone] note* Diagnosis Malignant neoplasm of upper-inner quadrant of left breast in female, estrogen receptor negative- Primary Edema of right lower leg Encounter for monitoring cardiotoxic drug therapy Hypomagnesemia Disorders of magnesium metabolism documented in this encounter [facility] Work Phone: [phone] note* Diagnosis Personal history of malignant neoplasm of breast Malignant neoplasm of upper-inner quadrant of left breast in female, estrogen receptor negative documented in this encounter [facility] Work Phone: [phone] note* Diagnosis Malignant neoplasm of upper-inner quadrant of left breast in female, estrogen receptor negative- Primary Encounter for follow-up examination after completed treatment for conditions other than malignant neoplasm documented in this encounter [facility] Work Phone: [phone] note* Diagnosis Malignant neoplasm of upper-inner quadrant of left breast in female, estrogen receptor negative- Primary documented in this encounter [facility] Work Phone: [phone] note* Diagnosis Malignant neoplasm of upper-inner quadrant of left breast in female, estrogen receptor negative documented in this encounter [facility] Work Phone: [phone] note* Diagnosis Malignant neoplasm of central portion of left female breast documented in this encounter [facility] Work Phone: [phone] note* Diagnosis Malignant neoplasm of central portion of left female breast documented in this encounter [facility] Work Phone: [phone] note* Diagnosis Malignant neoplasm of central portion of left female breast documented in this encounter [facility] Work Phone: Evaluation note* Diagnosis Encounter for antineoplastic radiation therapy Malignant neoplasm of central portion of left female breast documented in this encounter [facility] Work Phone: [phone] note* Diagnosis Encounter for antineoplastic radiation therapy Malignant neoplasm of central portion of left female breast documented in this encounter [facility] Work Phone: [phone] note* Diagnosis Encounter for antineoplastic radiation therapy Malignant neoplasm of central portion of left female breast documented in this encounter [facility] Work Phone: [phone] note* Diagnosis Encounter for antineoplastic radiation therapy Malignant neoplasm of central portion of left female breast documented in this encounter [facility] Work Phone: [phone] note* Diagnosis Encounter for antineoplastic radiation therapy Malignant neoplasm of central portion of left female breast documented in this encounter [facility] Work Phone: [phone] note* Diagnosis Encounter for antineoplastic radiation therapy Malignant neoplasm of central portion of left female breast documented in this encounter [facility] Work Phone: [phone] note* Diagnosis Encounter for antineoplastic radiation therapy Malignant neoplasm of central portion of left female breast documented in this encounter [facility] Work Phone: [phone] note* Diagnosis Encounter for antineoplastic radiation therapy Malignant neoplasm of central portion of left female breast documented in this encounter [facility] Work Phone: [phone] note* Diagnosis Encounter for antineoplastic radiation therapy Malignant neoplasm of central portion of left female breast documented in this encounter [facility] Work Phone: [phone] note* Diagnosis Encounter for antineoplastic radiation therapy Malignant neoplasm of central portion of left female breast documented in this encounter [facility] Work Phone: [phone] note* Diagnosis Encounter for antineoplastic radiation therapy Malignant neoplasm of central portion of left female breast documented in this encounter [facility] Work Phone: [phone] note* Diagnosis Encounter for antineoplastic radiation therapy Malignant neoplasm of central portion of left female breast documented in this encounter [facility] Work Phone: [phone] note* Diagnosis Malignant neoplasm of upper-inner quadrant of left breast in female, estrogen receptor negative documented in this encounter [facility] Work Phone: [phone] note* Diagnosis Encounter for antineoplastic radiation therapy Malignant neoplasm of central portion of left female breast documented in this encounter [facility] Work Phone: [phone] note* Diagnosis Encounter for antineoplastic radiation therapy Malignant neoplasm of central portion of left female breast documented in this encounter [facility] Work Phone: [phone] note* Diagnosis Malignant neoplasm of upper-inner quadrant of left breast in female, estrogen receptor negative- Primary Encounter for follow-up examination after completed treatment for conditions other than malignant neoplasm Malignant neoplasm of upper-inner quadrant of left breast in female, estrogen receptor negative documented in this encounter [facility] Work Phone: [phone] note* Diagnosis Malignant neoplasm of upper-inner quadrant of left breast in female, estrogen receptor negative documented in this encounter [facility] Work Phone: [phone] note* Diagnosis CLL (chronic lymphocytic leukemia) (Multi) Chronic lymphoid leukemia, without mention of having achieved remission documented in this encounter [facility] Work [phone] note* Diagnosis Malignant neoplasm of upper-inner quadrant of left breast in female, estrogen receptor negative- Primary Encounter for monitoring cardiotoxic drug therapy Mitral valve prolapse Mitral valve disorders Essential hypertension, benign Primary hypertension Unspecified essential hypertension CLL (chronic lymphocytic leukemia) (Multi) Chronic lymphoid leukemia, without mention of having achieved remission Shortness of breath documented in this encounter [facility] Work Phone: Evaluation note* Diagnosis Encounter for monitoring cardiotoxic drug therapy Malignant neoplasm of upper-inner quadrant of left breast in female, estrogen receptor negative documented in this encounter [facility] Work Phone: Evaluation note* Diagnosis Personal history of malignant neoplasm of breast documented in this encounter [facility] Work Phone: Evaluation note* Diagnosis Malignant neoplasm of upper-inner quadrant of left breast in female, estrogen receptor negative Malignant neoplasm of upper-inner quadrant of left breast in female, estrogen receptor negative documented in this encounter [facility] Work Phone: Evaluation note* Diagnosis Malignant neoplasm of upper-inner quadrant of left breast in female, estrogen receptor negative Encounter for monitoring cardiotoxic drug therapy documented in this encounter [facility] Work Phone: Evaluation note* Diagnosis Encounter for monitoring cardiotoxic drug therapy Malignant neoplasm of upper-inner quadrant of left breast in female, estrogen receptor negative Essential hypertension, benign SOB (shortness of breath) Shortness of breath documented in this encounter [facility] Work Phone: Evaluation note* Diagnosis Malignant neoplasm of upper-inner quadrant of left breast in female, estrogen receptor negative documented in this encounter [facility] Work Phone: Instructions* Instruction Description Start Date CompletedPatient advised to follow-up with Primary Care Physician for BMI management. [facility] Work Phone: Reason for referral (narrative)* Consultation (Routine) - Authorized Specialty Diagnoses / Procedures Referred By Coy t Referred To Contact Breast Surgery Diagnoses CLL (chronic lymphocytic leukemia) (Multi) Abnormal mammogram Chava Edwards MD [address] [facility], [place] [phone] Referral ID Status Reason Start Date Expiration Date Visits Requested Visits Authorized [id number] Authorized Specialty Services Required 01/22/2024 01/21/2025 [address] Josie Carpenter [facility] Work Phone: Rebrik for referral (narrative)No reason for referral information availableWMercy [facility] Work Phone: Reason for visit Narrative* Imaging (Routine) - Authorized Specialty Diagnoses / Procedures Referred By Telloac t Referred To Contact Radiology Diagnoses Malignant neoplasm of upper-inner quadrant of left breast in female, estrogen receptor negative Procedures BI mammo [place] [address] [facility] [place] [address] Phone: tel: fax: Referral ID Status Reason Start Date Expiration Date Visits Requested Visits Authorized [id number] Authorized Perform Procedure 06/27/2024 06/27/2025 1 1 [facility] Work Phone: Reqcju for visit Narrative* Imaging (Routine) - Authorized Specialty Diagnoses / Procedures Referred By Coy mcnulty Referred To Contact Radiology Diagnoses Malignant neoplasm of upper-inner quadrant of left breast in female, estrogen receptor negative Procedures BI [place] [address] [email or web address] [address] Phone: tel: fax: Referral ID Status Reason Start Date Expiration Date Visits Requested Visits Authorized [id number] Authorized Perform Procedure 06/27/2024 06/27/2025 1 1 [facility] Work Phone: Rejolb for visit Narrative* CV Imaging (Routine) - Authorized Specialty Diagnoses / Procedures Referred By Coy t Referred To Contact Cardiology Diagnoses Malignant neoplasm of upper-inner quadrant of left breast in female, estrogen receptor negative Encounter for monitoring cardiotoxic drug therapy Procedures Onco-Echo Limited (Strain And 3D) NJ ECHO TRANSTHORC R-T 2D W/WO M-MODE REC F-UP/[place] [address] [facility] [address] [place] [id number] Phone: tel: fax: Referral ID Status Reason Start Date Expiration Date Visits Requested Visits Authorized [id number] Authorized Perform Procedure 05/05/2024 05/05/2025 1 1 [facility] Work Phone: reason for visit Narrative* Imaging (Routine) - Authorized Specialty Diagnoses / Procedures Referred By Contac t Referred To Contact Cardiology Diagnoses Edema of right lower leg Procedures Vascular US lower extremity [place] [address] [facility] [address] [place] [address] Phone: tel: fax: Referral ID Status Reason Start Date Expiration Date Visits Requested Visits Authorized [id number] Authorized Perform Procedure 4 08/08/2025 1 1 [facility] Work Phone: reason for visit Narrative* Imaging (Routine) - Authorized Specialty Diagnoses / Procedures Referred By Contac t Referred To Contact Radiology Diagnoses Malignant neoplasm of upper-inner quadrant of left breast in female, estrogen receptor negative Procedures BI [place] [address] [address] [facility] [place] [address] Phone: tel: fax: Referral ID Status Reason Start Date Expiration Date Visits Requested Visits Authorized [id number] Authorized Perform Procedure 07/29/2024 07/29/2025 1 1 [facility] Work Phone: reason for visit Narrative* Imaging (Routine) - Authorized Specialty Diagnoses / Procedures Referred By Contac t Referred To Contact Radiology Diagnoses Other abnormal and inconclusive findings on diagnostic imaging of breast Procedures BI [place] [address] [facility] [place] [address] Phone: tel: fax: Referral ID Status Reason Start Date Expiration Date Visits Requested Visits Authorized [id number] Authorized Perform Procedure 4 08/01/2025 1 1 [facility] Work Phone: Reason for visit Narrative* Auth/Cert Specialty Diagnoses / Procedures Referred By Contac t Referred To Contact Diagnoses Malignant neoplasm of upper-inner quadrant of left breast in female, estrogen receptor negative Malignant neoplasm of upper-inner quadrant of left breast in female, estrogen receptor negative [C50.212, Z17.1] Procedures NJ BX/EXC LYMPH NODE OPEN DEEP AXILLARY NODE NJ BX/EXC LYMPH NODE OPEN SUPERFICIAL NJ INTRAOP SENTINEL LYMPH NODE ID W/DYE INJECTION NJ MASTECTOMY PARTIAL Left Breast Magseed Localized Partial Bracket Mastectomy; [place] Lymph Node Injection; Axillary Magseed Localized [place] Lymph Node Biopsy with Frozen Section; Possible Complete Axillary Lymph Node Dissection Left Breast [place] Localized Partial Bracket Mastectomy; [place] Lymph Node Injection; Axillary Magseed Localized [place] Lymph Node Biopsy with Frozen Section; Possible Complete Axillary Lymph Node Dissection Left Breast Mag[place] Localized Partial Bracket Mastectomy; [place] Lymph Node Injection; Axillary Magseed Localized [place] Lymph Node Biopsy with Frozen Section; Possible Complete Axillary Lymph Node Dissection Left Breast Magseed Localized Partial Bracket Mastectomy; [place] Lymph Node Injection; Axillary Magseed Localized [place] Lymph Node Biopsy with Frozen Section; Possible Complete Axillary [place] [address] [place] [address] Phone: tel: fax: [facility] [place] [address] [place] [phone] fax: Referral ID Status Reason Start Date Expiration Date Visits Re quested Visits Authorized [id number] 1 1 [facility] Work Phone: Rekymv for visit Narrative* Auth/Cert Specialty Diagnoses / Procedures Referred By Contac t Referred To Contact Diagnoses Malignant neoplasm of upper-inner quadrant of left breast in female, estrogen receptor negative Malignant neoplasm of upper-inner quadrant of left breast in female, estrogen receptor negative [C50.212, Z17.1] Procedures NJ BX/EXC LYMPH NODE OPEN DEEP AXILLARY NODE NJ BX/EXC LYMPH NODE OPEN SUPERFICIAL NJ INTRAOP SENTINEL LYMPH NODE ID W/DYE INJECTION NJ MASTECTOMY PARTIAL Left Breast Magseed Localized Partial Bracket Mastectomy; [place] Lymph Node Injection; Axillary Magseed Localized [place] Lymph Node Biopsy with Frozen Section; Possible Complete Axillary Lymph Node Dissection Left Breast Mag[place] Localized Partial Bracket Mastectomy; [place] Lymph Node Injection; Axillary Magseed Localized [place] Lymph Node Biopsy with Frozen Section; Possible Complete Axillary Lymph Node Dissection Left Breast Magseed Localized Partial Bracket Mastectomy; [place] Lymph Node Injection; Axillary Magseed Localized [place] Lymph Node Biopsy with Frozen Section; Possible Complete Axillary Lymph Node Dissection Left Breast Mag[place] Localized Partial Bracket Mastectomy; [place] Lymph Node Injection; Axillary Magseed Localized [place] Lymph Node Biopsy with Frozen Section; Possible Complete Axillary [place] [address] [address] [facility] [place] [id number] Phone: tel: fax: [facility] [place] [address] [place] [phone] fax: Referral ID Status Reason Start Date Expiration Date Visits Re quested Visits Authorized [id number] 1 1 [facility] Work Phone: reason for visit Narrative* Imaging (Routine) - Authorized Specialty Diagnoses / Procedures Referred By Contac t Referred To Contact Radiology Diagnoses Other abnormal and inconclusive findings on diagnostic imaging of breast Procedures BI [place] [address] [place] [address] Phone: tel: fax: Referral ID Status Reason Start Date Expiration Date Visits Requested Visits Authorized [id number] Authorized Perform Procedure 08/23/2024 08/23/2025 1 1 [facility] Work Phone: reason for visit Narrative* Imaging (Routine) - Authorized Specialty Diagnoses / Procedures Referred By Contac t Referred To Contact Radiology Diagnoses Malignant neoplasm of upper-inner quadrant of left breast in female, estrogen receptor negative Other abnormal and inconclusive findings on diagnostic imaging of breast Procedures BI [place] [address] [facility] [place] [address] Phone: tel: fax: Referral ID Status Reason Start Date Expiration Date Visits Requested Visits Authorized [id number] Authorized Perform Procedure 08/23/2024 08/23/2025 1 1 [facility] Work Phone: reason for visit Narrative* Radiation Therapy (Routine) - Authorized Specialty Diagnoses / Procedures Referred By Contac t Referred To Contact Radiation Oncology Diagnoses Malignant neoplasm of upper-inner quadrant of left breast in female, estrogen receptor negative Procedures Rad Onc Intent to Treat Rickey Camacho MD [address] [place] [address] Phone: tel: fax: Referral ID Status Reason Start Date Expiration Date V isits Requested Visits Authorized [id number] Authorized 10/07/2024 10/07/2025 1 16 [facility] Work Phone: reason for visit Narrative* Imaging (Routine) - Authorized Specialty Diagnoses / Procedures Referred By Contac t Referred To Contact Radiology Diagnoses Malignant neoplasm of upper-inner quadrant of left breast in female, estrogen receptor negative Procedures IR CVC port removal NJ RMVL ENOCH CTR VAD W/SUBQ PORT/FABRICATOR FOAM RUBBER CTR/[place] [address] [place] [address] Phone: tel: fax: Referral ID Status Reason Start Date Expiration Date Visits Requested Visits Authorized [id number] Authorized Perform Procedure 11/21/2024 11/21/2025 1 1 [facility] Work Phone: reason for visit Narrative* CV Imaging (Routine) - Authorized Specialty Diagnoses / Procedures Referred By Contac t Referred To Contact Cardiology Diagnoses Encounter for monitoring cardiotoxic drug therapy Malignant neoplasm of upper-inner quadrant of left breast in female, estrogen receptor negative Procedures Onco-Echo Limited (Strain and 3D) NJ MYOCRD STRAIN IMG SPECKLE [place] [address] [facility] [address] [place] [address] Phone: tel: fax: Referral ID Status Reason Start Date Expiration Date Visits Requested Visits Authorized [id number] Authorized Perform Procedure 10/03/2024 10/03/2025 1 1 [facility] Work Phone: Reason for visit Narrative* Imaging (Routine) - Authorized Specialty Diagnoses / Procedures Referred By Contac t Referred To Contact Radiology Diagnoses Personal history of malignant neoplasm of breast Procedures BI mammo [place] [address] [address] [facility] [place] [address] Phone: tel: fax: Referral ID Status Reason Start Date Expiration Date Visits Requested Visits Authorized [id number] Authorized Perform Procedure 09/26/2024 09/26/2025 1 1 [facility] Work Phone: Rebujp for visit Narrative* CV Imaging (Routine) - Authorized Specialty Diagnoses / Procedures Referred By Coy mcnulty Referred To Contact Cardiology Diagnoses Malignant neoplasm of upper-inner quadrant of left breast in female, estrogen receptor negative Encounter for monitoring cardiotoxic drug therapy Procedures Onco-Echo Limited (Strain And 3D) NJ MYOCRD STRAIN IMG SPECKLE TRCK ASSMT MYOCRD MECH NJ ECHO TRANSTHORC R-T 2D W/WO M-MODE REC F-UP/LMTD NJ DOPPLER ECHO PULSE WAVE W/SPECTRAL F-UP/LMTD STD NJ DOPPLER ECHO COLOR FLOW VELOCITY MAPPING CHG 3D RENDERING W/INTERP & [place] [address] [facility] [address] [place] [address] Phone: tel: fax: Referral ID Status Reason Start Date Expiration Date Visits Requested Visits Authorized [id number] Authorized Perform Procedure 01/30/2025 01/30/2026 1 1 [facility] Work Phone: Chief Complaint Chief Complaint Description Start Date left shoulder pain Preliminary chief co mplaint data, not yet signed by the author as of Chief Complaint Description Start Date left knee 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 Advance Directives Documents on File Type Date Recorded Patient Leather Skinner Baldo cherry Living Will 02/27/2023 3:26 PM Living Will 02/26/2023 Healthcare Power of Atty 06/10/2019 Living Will 06/10/2019 Documents on File Type Date Recorded Patient Leather Skinner Baldo cherry Living Will 02/27/2023 3:26 PM Living Will 02/26/2023 Healthcare Power of Atty 06/10/2019 Living Will 06/10/2019 Date Activated Date Inactivated Comments 08/24/2024 6:03 AM Question Answer Comments Plan of Care: Code Status Discussion Completed Decision Maker: Patient Documents on File Type Date Recorded Patient Leather Skinner Baldo cherry Living Will 02/27/2023 3:26 PM Living Will 02/26/2023 Advance Directives and Livin g Will 06/13/2019 Healthcare Power of Atty 06/10/2019 Living Will 06/10/2019 Date Activated Date Inactivated Comments 08/24/2024 6:03 AM Question Answer Comments Plan of Care: Code Status Discussion Completed Decision Maker: Patient Documents on File Type Date Recorded Patient Leather Skinner Baldo cherry Living Will 02/27/2023 3:26 PM Living Will 02/26/2023 Advance Directives and Livin g Will 06/13/2019 Healthcare Power of Atty 06/10/2019 Living Will 06/10/2019 Assessments There may be information available, but it has not been provided by the sender. Review of System There may be information available, but it has not been provided by the sender. Family History Relationship Condition Age at Onset Recorded Date/T luz Not Specified Malignant neoplasm of colon Unknown Diabetes mellitus Unknown High blood cholesterol Unknown Cardiac disease Unknown Hypertension Unknown Cerebrovascular accident (CVA) Unknown History of Present Illness There may be information available, but it has not been provided by the sender. Summary Purpose Chief Complaint and Reason for Visit Chief Complaint medication refills Reason for Visit Diabetes type 2, unc ontrolled Hyperlipemia Hypertension Chief Complaint medication refills Reason for Visit Osteoarthritis Hypertension Chief Complaint medication refills Sore throat/Fatigue Possible medication change Reason for Visit Diabetes type 2, unc ontrolled Hyperlipemia Hypertension Bilateral otitis media Maxillary sinusitis, acute Diabetes type 2, uncontrolled Lymphoma Hypertension Chief Complaint Admit Date HTN/liquid blisters/UTI [facility], 202 5 6:45pm Staph infection November 28, 2024 4:4 8pm LABWORK November 28, 2024 11: 44pm Reason for Visit Admit Date Cystitis September 28, 2024 6: 45pm Folliculitis September 28, 2024 6: 45pm Hypotension September 28, 2024 6: 45pm Diabetes type 2, uncontrolled November 4:48pm Folliculitis November 28, 2024 4:4 8pm Reason for Referral Specialty Diagnoses / Procedures Referred By Contac t Referred To Contact Radiology Diagnoses CLL (chronic lymphocytic leukemia) ([facility]) Procedures CT chest abdomen pelvis w IV contrast Chava Edwards MD [address] [place] [address], [address] [address] Referral ID Status Reason Start Date Expiration Date Visits Requested Visits Authorized [id number] Authorized Perform Procedure 12/25/2023 12/24/2024 1 1 Specialty Diagnoses / Procedures Referred By Contac t Referred To Contact Radiology Diagnoses CLL (chronic lymphocytic leukemia) ([facility]) Procedures BI mammo bilateral screening tomosynthesis Chava Edwards MD [address] [place] [address], [address] [address] Referral ID Status Reason Start Date Expiration Date Visits Requested Visits Authorized [id number] Authorized Perform Procedure 12/25/2023 12/24/2024 1 1 Specialty Diagnoses / Procedures Referred By Contac t Referred To Contact Radiology Diagnoses CLL (chronic lymphocytic leukemia) (Multi) Procedures CT chest abdomen pelvis w IV contrast Chava Edwards MD [address] [place] [address], [address] [address] Specialty Diagnoses / Procedures Referred By Contac t Referred To Contact Radiology Diagnoses CLL (chronic lymphocytic leukemia) (Multi) Procedures BI mammo bilateral screening tomosynthesis Chava Edwards MD [address] [place] [address], [address] [address] Specialty Diagnoses / Procedures Referred By Contac t Referred To Contact Radiology Diagnoses Other abnormal and inconclusive findings on diagnostic imaging of breast Procedures BI mammo left diagnostic tomosynthesis Chava Edwards MD [address] [place] [address] Referral ID Status Reason Start Date Expiration Date Visits Requested Visits Authorized [id number] Authorized Perform Procedure 01/19/2024 01/18/2025 1 1 Specialty Diagnoses / Procedures Referred By Contac t Referred To Contact Radiology Diagnoses Abnormal finding on breast imaging Procedures BI US biopsy of lymph node Antonio Rader APRN-[employer] REPRESENTATIVE [address] Department of Surgery-Surgical Oncology [place] [phone] Referral ID Status Reason Start Date Expiration Date Visits Requested Visits Authorized [id number] Authorized Perform Procedure 02/08/2024 02/07/2025 1 1 Specialty Diagnoses / Procedures Referred By Contac t Referred To Contact Radiology Diagnoses Abnormal finding on breast imaging Mass of left breast, unspecified quadrant Procedures BI US guided breast localization and biopsy left Antonio Rader APRN-[employer] REPRESENTATIVE [address] [address] Department [place] [address] Referral ID Status Reason Start Date Expiration Date Visits Requested Visits Authorized [id number] Authorized Perform Procedure 02/08/2024 02/07/2025 1 1 Specialty Diagnoses / Procedures Referred By Contac t Referred To Contact Radiology Diagnoses Other abnormal and inconclusive findings on diagnostic imaging of breast Procedures BI breast biopsy clip imaging Chava Edwards MD [address] [facility] [place] [address] Referral ID Status Reason Start Date Expiration Date Visits Requested Visits Authorized [id number] Authorized Perform Procedure 01/28/2024 01/27/2025 1 1 Specialty Diagnoses / Procedures Referred By Contac t Referred To Contact Radiology Diagnoses Malignant neoplasm of upper-inner quadrant of left breast in female, estrogen receptor negative Procedures US head neck soft tissue [place] [address] [place] [address] Referral ID Status Reason Start Date Expiration Date Visits Requested Visits Authorized [id number] Pending Review Perform Procedure 06/27/2024 06/27/2025 1 1 Specialty Diagnoses / Procedures Referred By Contac t Referred To Contact Diagnoses Malignant neoplasm of upper-inner quadrant of left breast in female, estrogen receptor negative (Multi) [place] [address] [place] [phone] Referral ID Status Reason Start Date Expiration Date V isits Requested Visits Authorized [id number] Pending Review 1 1 Specialty Diagnoses / Procedures Referred By Contac t Referred To Contact Genetics Diagnoses Malignant neoplasm of upper-inner quadrant of left breast in female, estrogen receptor negative (Multi) [place] [address] [address] [place] [phone] Referral ID Status Reason Start Date Expiration Date Visits Requested Visits Authorized [id number] Authorized Specialty Services Required 03/22/2024 03/22/2025 1 1 Specialty Diagnoses / Procedures Referred By Contac t Referred To Contact Radiology Diagnoses Malignant neoplasm of upper-inner quadrant of left breast in female, estrogen receptor negative (Multi) Procedures IR CVC port placement NJ INSJ TUNNELED CTR VAD W/SUBQ PORT AGE 5 YR/> [place] [address] [address] [place] [phone] Referral ID Status Reason Start Date Expiration Date Visits Requested Visits Authorized [id number] Pending Review Perform Procedure 03/22/2024 03/22/2025 1 1 Specialty Diagnoses / Procedures Referred By Contac t Referred To Contact Cardiology / Oncology Diagnoses Malignant neoplasm of upper-inner quadrant of left breast in female, estrogen receptor negative (Multi) [place] [address] [address] [place] [phone] Referral ID Status Reason Start Date Expiration Date Visits Requested Visits Authorized [id number] Authorized Specialty Services Required 03/22/2024 03/22/2025 1 1 Specialty Diagnoses / Procedures Referred By Contac t Referred To Contact Cardiology Diagnoses Malignant neoplasm of upper-inner quadrant of left breast in female, estrogen receptor negative (Multi) Encounter for antineoplastic chemotherapy Procedures Transthoracic Echo Complete NJ ECHO TTHRC R-T 2D W/WOM-MODE COMPL SPEC&[place] [address] [place] [address] Referral ID Status Reason Start Date Expiration Date Visits Requested Visits Authorized [id number] Authorized Perform Procedure 03/22/2024 03/22/2025 1 1 Specialty Diagnoses / Procedures Referred By Coy mcnulty Referred To Contact Radiology Diagnoses Malignant neoplasm of upper-inner quadrant of left breast in female, estrogen receptor negative (Multi) Procedures [place] [address] [place] [address] Referral ID Status Reason Start Date Expiration Date Visits Requested Visits Authorized [id number] Authorized Perform Procedure 03/22/2024 03/22/2025 2 2 Referral ID Status Reason Start Date Expiration Date Visits Requested Visits Authorized [id number] Authorized Perform Procedure 03/22/2024 03/22/2025 1 1 Specialty Diagnoses / Procedures Referred By Coy mcnulty Referred To Contact Cardiology Diagnoses Malignant neoplasm of upper-inner quadrant of left breast in female, estrogen receptor negative (Multi) Encounter for monitoring cardiotoxic drug therapy Procedures Onco-Echo Limited (Strain And 3D) NJ ECHO TRANSTHORC R-T 2D W/WO M-MODE REC F-UP/LMTD Brenda Cortes MD [address] [place] [address] Dr [address] [place] [id number] Referral ID Status Reason Start Date Expiration Date Visits Requested Visits Authorized [id number] Pending Review Perform Procedure 05/05/2024 05/05/2025 1 1 Specialty Diagnoses / Procedures Referred By Coy mcnulty Referred To Contact Diagnoses CLL (chronic lymphocytic leukemia) (Multi) Procedures ECG 12 lead (Clinic Performed) Brenda Cortes MD [address] [place] [address] [address] [place] [address] Referral ID Status Reason Start Date Expiration Date V isits Requested Visits Authorized [id number] Authorized 05/05/2024 05/05/2025 1 1 Additional Source Comments Reason for Visit (unrecogniz ed section and content) Reason Comments Follow-up Specialty Diagnoses / Procedures Referred By Contac t Referred To Contact Hematology and Oncology Diagnoses Malignant neoplasm of upper-inner quadrant of left breast in female, [place] [address] [place] [address] [facility] [address] [place] [address] [phone] Referral ID Status Reason Start Date Expiration Date V isits Requested Visits Authorized [id number] Authorized 03/22/2024 09/20/2024 1 1000 Reason For Visit Description Start Date New - 1st visit with practice Preliminary reason f or visit data, not yet signed by the author as of left shoulder pain Reason For Visit Description Start Date Postop - 1st visit Preliminary reason f or visit data, not yet signed by the author as of left knee post Left total kn ee replacement on 12/02/2021 Reason Comments Follow-up Specialty Diagnoses / Procedures Referred By Contac t Referred To Contact Radiology Diagnoses CLL (chronic lymphocytic leukemia) (Multi) Procedures CT chest abdomen pelvis w IV contrast Chava Edwards MD [address] [facility], [place] [address] Referral ID Status Reason Start Date Expiration Date Visits Requested Visits Authorized [id number] Authorized Perform Procedure 12/25/2023 12/24/2024 1 1 Specialty Diagnoses / Procedures Referred By Contac t Referred To Contact Radiology Diagnoses CLL (chronic lymphocytic leukemia) (Multi) Procedures BI mammo bilateral screening tomosynthesis Chava Edwards MD [address] [facility], [address] [address] Referral ID Status Reason Start Date Expiration Date Visits Requested Visits Authorized [id number] Authorized Perform Procedure 12/25/2023 12/24/2024 1 1 Specialty Diagnoses / Procedures Referred By Contac t Referred To Contact Radiology Diagnoses CLL (chronic lymphocytic leukemia) (Multi) Other abnormal and inconclusive findings on diagnostic imaging of breast Procedures BI US breast limited left BI US breast complete bilateral Chava Edwards MD [address] [place] [phone] Referral ID Status Reason Start Date Expiration Date Visits Requested Visits Authorized [id number] Pending Review Perform Procedure 01/14/2024 01/13/2025 1 1 Specialty Diagnoses / Procedures Referred By Contac t Referred To Contact Radiology Diagnoses Other abnormal and inconclusive findings on diagnostic imaging of breast Procedures BI mammo left diagnostic tomosynthesis Chava Edwards MD [address] [place] [phone] Referral ID Status Reason Start Date Expiration Date Visits Requested Visits Authorized [id number] Authorized Perform Procedure 01/19/2024 01/18/2025 1 1 Reason Comments Biopsy Consultation Specialty Diagnoses / Procedures Referred By Contac t Referred To Contact Radiology Diagnoses Other abnormal and inconclusive findings on diagnostic imaging of breast Procedures BI US breast limited left BI stereotactic guided breast left localization and biopsy Antonio Rader APRN-CNP [address] Department [place] [address] Referral ID Status Reason Start Date Expiration Date Visits Requested Visits Authorized [id number] Pending Review Perform Procedure 01/28/2024 01/27/2025 1 1 Specialty Diagnoses / Procedures Referred By Contac t Referred To Contact Radiology Diagnoses Abnormal finding on breast imaging Procedures BI US biopsy of lymph node Antonio Rader APRN-CNP [address] Department [place] [address] Referral ID Status Reason Start Date Expiration Date Visits Requested Visits Authorized [id number] Authorized Perform Procedure 02/08/2024 02/07/2025 1 1 Specialty Diagnoses / Procedures Referred By Contac t Referred To Contact Radiology Diagnoses Other abnormal and inconclusive findings on diagnostic imaging of breast Procedures BI breast biopsy clip imaging Chava Edwards MD [address] [facility], [address] [place] [address] Referral ID Status Reason Start Date Expiration Date Visits Requested Visits Authorized [id number] Authorized Perform Procedure 01/28/2024 01/27/2025 1 1 Specialty Diagnoses / Procedures Referred By Contac t Referred To Contact Radiology Diagnoses Abnormal finding on breast imaging Mass of left breast, unspecified quadrant Procedures BI US guided breast localization and biopsy left Antonio Rader, [place]OTT[place] [address] [address] Department [place] [address] Referral ID Status Reason Start Date Expiration Date Visits Requested Visits Authorized [id number] Authorized Perform Procedure 02/08/2024 02/07/2025 1 1 Reason Comments New Patient Visit Specialty Diagnoses / Procedures Referred By Coy t Referred To Contact Radiology Diagnoses Malignant neoplasm of upper-inner quadrant of left breast in female, estrogen receptor negative Procedures US head neck soft tissue US head neck soft tissue Dima Cage [place] [address] [address] [place] [phone] Referral ID Status Reason Start Date Expiration Date Visits Requested Visits Authorized [id number] Pending Review Perform Procedure 06/27/2024 06/27/2025 1 1 Reason Comments Follow-up Specialty Diagnoses / Procedures Referred By Coy t Referred To Contact Cardiology Diagnoses Malignant neoplasm of upper-inner quadrant of left breast in female, estrogen receptor negative (Multi) Encounter for antineoplastic chemotherapy Procedures Transthoracic Echo Complete [place] ECHO TTHRC R-T 2D W/WOM-MODE COMPL SPEC&[place] [address] [address] [place] [phone] Referral ID Status Reason Start Date Expiration Date Visits Requested Visits Authorized [id number] Authorized Perform Procedure 03/22/2024 03/22/2025 1 1 Specialty Diagnoses / Procedures Referred By Coy t Referred To Contact Radiology Diagnoses Malignant neoplasm of upper-inner quadrant of left breast in female, estrogen receptor negative (Multi) Procedures [place] [address] [place] [address] Referral ID Status Reason Start Date Expiration Date Visits Requested Visits Authorized [id number] Authorized Perform Procedure 03/22/2024 03/22/2025 2 2 Specialty Diagnoses / Procedures Referred By Contac t Referred To Contact Radiology Diagnoses Malignant neoplasm of upper-inner quadrant of left breast in female, estrogen receptor negative (Multi) Procedures IR CVC port placement NJ INSJ TUNNELED CTR VAD W/SUBQ PORT AGE 5 YR/> [place] [address] [place] [address] Referral ID Status Reason Start Date Expiration Date Visits Requested Visits Authorized [id number] Authorized Perform Procedure 03/22/2024 03/22/2025 1 1 Reason Comments Establish Care Specialty Diagnoses / Procedures Referred By Contac t Referred To Contact Cardiology / Oncology Diagnoses Malignant neoplasm of upper-inner quadrant of left breast in female, estrogen receptor negative (Multi) [place] [address] [place] [address] Referral ID Status Reason Start Date Expiration Date Visits Requested Visits Authorized [id number] Authorized Specialty Services Required 03/22/2024 03/22/2025 1 1 Specialty Diagnoses / Procedures Referred By Contac t Referred To Contact Hematology and Oncology Diagnoses Malignant neoplasm of upper-inner quadrant of left breast in female, estrogen receptor negative (Multi) [place] [address] [place] [address] [facility] [id number] Med[address] [facility] [address] [place] [address] Specialty Diagnoses / Procedures Referred By Contac t Referred To Contact Cardiology Diagnoses Edema of right lower leg Shortness of breath Encounter for monitoring cardiotoxic drug therapy Procedures Follow [place] [address] [facility] [address] [place] [address] Phone: tel: fax: Referral ID Status Reason Start Date Expiration Date V isits Requested Visits Authorized [id number] Authorized 08/08/2024 08/08/2025 1 1 Reason Comments New Patient Visit Consult Specialty Diagnoses / Procedures Referred By Contac t Referred To Contact Radiation Oncology Diagnoses Malignant neoplasm of upper-inner quadrant of left breast in female, [place] [address] [facility] [place] [address] Phone: tel: fax: Rickey Camacho MD [address] [place] [address] Phone: tel: fax: Referral ID Status Reason Start Date Expiration Date Visits Requested Visits Authorized [id number] Authorized Specialty Services Required 09/26/2024 09/26/2025 1 1 Reason Comments OTV Specialty Diagnoses / Procedures Referred By Contac t Referred To Contact Hematology and Oncology Diagnoses Malignant neoplasm of upper-inner quadrant of left breast in female, [place] [address] [place] [address] Phone: tel: fax: [facility] [address] [facility] [address] [place] [address] Phone: tel: fax: Referral ID Status Reason Start Date Expiration Date V isits Requested Visits Authorized [id number] Authorized 03/22/2024 03/22/2025 1 1000 Reason Comments Follow-up Hypertension Reason Comments Follow-up Chemotherapy Reason Comments Hypertension Specialty Diagnoses / Procedures Referred By Contac t Referred To Contact Cardiology Diagnoses Encounter for monitoring cardiotoxic drug therapy Malignant neoplasm of upper-inner quadrant of left breast in female, estrogen receptor negative Procedures Follow [place] [address] [facility] [address] [place] [address] Phone: tel: fax: Referral ID Status Reason Start Date Expiration Date V isits Requested Visits Authorized [id number] Authorized 09/12/2024 09/12/2025 1 1 INFORMATION SOURCE (unrecogn ized section and content) DATE CREATED AUTHOR 06/15/2021 [facility] DATE CREATED AUTHOR AUTHOR'S ORGANIZ ATION 06/11/2024 [facility] DATE CREATED AUTHOR AUTHOR'S ORGANIZ ATION 07/28/2024 [facility] DATE CREATED AUTHOR AUTHOR'S ORGANIZ ATION 12/16/2024 [facility] DATE CREATED AUTHOR AUTHOR'S ORGANIZ ATION 05/15/2025 [facility] DATE CREATED AUTHOR AUTHOR'S ORGANIZ ATION 05/16/2025 [facility] DATE CREATED AUTHOR AUTHOR'S ORGANIZ ATION 05/19/2025 [facility] DATE CREATED AUTHOR AUTHOR'S ORGANIZ ATION 07/17/2025 [facility] DATE CREATED AUTHOR AUTHOR'S ORGANIZ ATION 08/01/2025 [facility] Goals (unrecognized section and content) Goals may be documented in a n alternate sectionGoals may be documented in an alternate sectionGoals may be documented in an alternate sectionGoals may be documented in an alternate section Care Teams (unrecognized sec tion and content) Team Status: Active Member Role Status Dates Chandler Calzada TROUBLE LINEMAN, TROUBLE LINEMAN-C Primary Care Provider Active Team Status: Inactive Member Role Status Dates Chandler Calzada TROUBLE LINEMAN, TROUBLE LINEMAN-C Primary Care Pr ovider, Attending Provider, Referring Provider Active Team Status: Inactive Member Role Status Dates Chandler Calzada TROUBLE LINEMAN, TROUBLE LINEMAN-C Primary Care Provider, Attend ing Provider Active Software Development Specialist Relationship Specialty Start Date End Date Chandler Calzada, PRESIDENT EDUCATIONAL INSTIT[employer]-OUTSIDE INDUSTRIAL SALES REPRESENTATIVE [address] [place] [address] PCP - General 08/18/16 Chava Edwards MD [address] [facility] [address] [place] [address] Consulting Physician Hematology and Oncology 12/25/23 Software Development Specialist Relationship Specialty Start Date End Date Chandler Calzada, PRESIDENT EDUCATIONAL INSTITUTION-OUTSIDE INDUSTRIAL SALES REPRESENTATIVE [address] After Hours Family Medicine [place], [place] [id number] PCP - General 08/18/16 Chava Edwards MD [address] [facility], [address] [address] Consulting Physician Hematology and Oncology 12/25/23 Software Development Specialist Relationship Specialty Start Date End Date Chandler Calzada, PRESIDENT EDUCATIONAL INSTITUTION-OUTSIDE INDUSTRIAL SALES REPRESENTATIVE [address] After Hours Family Medicine [place], [place] [id number] PCP - General 08/18/16 Chava Edwards MD [address] [facility], [address] [address] Consulting Physician Hematology and Oncology 12/25/23 Software Development Specialist Relationship Specialty Start Date End Date Chandler Calzada, PRESIDENT [employer]UCATIONAL [employer]UTION-OUTSIDE INDUSTRIAL SALES REPRESENTATIVE [address] After Hours Family Medicine [place], [place] [phone] PCP - General 08/18/16 Chava Edwards MD [address] [facility], [address] [address] Consulting Physician Hematology and Oncology 12/25/23 Software Development Specialist Relationship Specialty Start Date End Date Chandler Calzada, PRESIDENT [employer]UCATIONAL IN[employer]UTION-OUTSIDE INDUSTRIAL SALES REPRESENTATIVE [address] After Hours Family Medicine [place], [place] [id number] PCP - General 08/18/16 Chava Edwards MD [address] [facility], [address] [address] Consulting Physician Hematology and Oncology 12/25/23 Software Development Specialist Relationship Specialty Start Date End Date Chandler Calzada PRESIDENT [employer]UCATIONAL [employer]UTION-OUTSIDE INDUSTRIAL SALES REPRESENTATIVE [address] After [place] [address] PCP - General 08/18/16 Chava Edwards MD [address] [facility], [address] [address] Consulting Physician Hematology and Oncology 12/25/23 Software Development Specialist Relationship Specialty Start Date End Date Chandler Calzada PRESIDENT EDUCATIONAL INSTITUTION-OUTSIDE INDUSTRIAL SALES REPRESENTATIVE [address] After [place] [address] PCP - General 08/18/16 Chava Edwards MD [address] [facility], [address] [address] Consulting Physician Hematology and Oncology 12/25/23 Software Development Specialist Relationship Specialty Start Date End Date Chandler Calzada PRESIDENT [employer]UCATIONAL IN[employer]UTION-OUTSIDE INDUSTRIAL SALES REPRESENTATIVE [address] After [place] [address] PCP - General 08/18/16 Chava Edwards MD [address] [facility], [address] [address] Consulting Physician Hematology and Oncology 12/25/23 Software Development Specialist Relationship Specialty Start Date End Date Chandler Calzada PRESIDENT EDUCATIONAL IN[employer]UTION-OUTSIDE INDUSTRIAL SALES REPRESENTATIVE [address] After [place] [address] PCP - General 08/18/16 Chava Edwards MD [address] [facility], [address] [address] Consulting Physician Hematology and Oncology 12/25/23 [place] [address] [place] [address] Consulting Physician Hematology and Oncology 03/22/24 Nicole Sadler [facility] Landing Scaler Simulation Educator 04/04/24 Chio Motley MD Consulting Physician Hematology and Oncology 04/12/24 Software Development Specialist Relationship Specialty Start Date End Date Chandler Calzada APRN-OUTSIDE INDUSTRIAL SALES REPRESENTATIVE [address] After [place] [address] PCP - General 08/18/16 Chava Edwards MD [address] [facility], [address] [address] Consulting Physician Hematology and Oncology 12/25/23 [place] [address] [place] [address] Consulting Physician Hematology and Oncology 03/22/24 Nicole Sadler [facility] Landing Scaler Simulation Educator 04/04/24 Chio Motley MD Consulting Physician Hematology and Oncology 04/12/24 Software Development Specialist Relationship Specialty Start Date End Date Chandler Calzada APRN-OUTSIDE INDUSTRIAL SALES REPRESENTATIVE [address] [place] [address] PCP - General 08/18/16 Chava Edwards MD [address] [facility], [address] [address] Consulting Physician Hematology and Oncology 12/25/23 [place] [address] [place] [address] Consulting Physician Hematology and Oncology 03/22/24 Nicole Sadler LSW Landing Scaler Simulation Educator 04/04/24 Chio Motley MD Consulting Physician Hematology and Oncology 04/12/24 Software Development Specialist Relationship Specialty Start Date End Date Chandler Calzada, PRESIDENT EDUCATIONAL INSTITUTION-OUTSIDE INDUSTRIAL SALES REPRESENTATIVE [address] After [place] [address] PCP - General 08/18/16 Chava Edwards MD 5[address] [facility], [address] [address] Consulting Physician Hematology and Oncology 12/25/23 [place] [address] [place] [address] Consulting Physician Hematology and Oncology 03/22/24 Nicole Sadler [facility] Landing Scaler Simulation Educator 04/04/24 Chio Motley MD Consulting Physician Hematology and Oncology 04/12/24 Software Development Specialist Relationship Specialty Start Date End Date Chandler Calzada, PRESIDENT EDUCATIONAL INSTITUTION-OUTSIDE INDUSTRIAL SALES REPRESENTATIVE [address] [place] [address] PCP - General 08/18/16 Chava Edwards MD [address] [facility], [address] [address] Consulting Physician Hematology and Oncology 12/25/23 [place] [address] [place] [address] Consulting Physician Hematology and Oncology 03/22/24 Nicole Sadler LSW Landing Scaler Simulation Educator 04/04/24 Chio Motley MD Consulting Physician Hematology and Oncology 04/12/24 Software Development Specialist Relationship Specialty Start Date End Date Chandler Calzada APRN-OUTSIDE INDUSTRIAL SALES REPRESENTATIVE [address] [place] [address] PCP - General 08/18/16 Chava Edwards MD 5[address] [facility], [facility] [address] [place] [address] Consulting Physician Hematology and Oncology 12/25/23 [place] [address] [place], [place] [id number] Consulting Physician Hematology and Oncology 03/22/24 Nicole Sadler [facility] Landing Scaler Simulation Educator 04/04/24 Chio Motley MD Consulting Physician Hematology and Oncology 04/12/24 Software Development Specialist Relationship Specialty Start Date End Date Chandler Calzada APRN-OUTSIDE INDUSTRIAL SALES REPRESENTATIVE [address] [place] [address] PCP - General 08/18/16 Chava Edwards MD 5133 [facility], [address] [address] Consulting Physician Hematology and Oncology 12/25/23 [place] [address] [place] [address] Consulting Physician Hematology and Oncology 03/22/24 Nicole Sadler [facility] Landing Scaler Simulation Educator 04/04/24 Chio Motley MD Consulting Physician Hematology and Oncology 04/12/24 Software Development Specialist Relationship Specialty Start Date End Date Chandler Calzada APRN-OUTSIDE INDUSTRIAL SALES REPRESENTATIVE [address] After Hours Family Medicine [place], [place] [id number] PCP - General 08/18/16 Chava Edwards MD 5133 [facility], [address] [address] Consulting Physician Hematology and Oncology 12/25/23 [place] [address] [address] [place], [place] [address] Consulting Physician Hematology and Oncology 03/22/24 Nicole Sadler, [facility] Landing Scaler Simulation Educator 04/04/24 Chio Motley MD Consulting Physician Hematology and Oncology 04/12/24 Software Development Specialist Relationship Specialty Start Date End Date Chandler Calzada APRN-OUTSIDE INDUSTRIAL SALES REPRESENTATIVE [address] [place] [address] PCP - General 08/18/16 Chava Edwards MD 5[address] [facility], [address] [address] Consulting Physician Hematology and Oncology 12/25/23 [place] [address] [address] [place], [place] [id number] Consulting Physician Hematology and Oncology 03/22/24 Nicole Sadler, [facility] Landing Scaler Simulation Educator 04/04/24 Chio Motley MD Consulting Physician Hematology and Oncology 04/12/24 Software Development Specialist Relationship Specialty Start Date End Date Chandler Calzada PRESIDENT EDUCATIONAL INSTITUTION-OUTSIDE INDUSTRIAL SALES REPRESENTATIVE [address] After [place] [address] PCP - General 08/18/16 Chava Edwards MD 5[address] [facility], [address] [address] Consulting Physician Hematology and Oncology 12/25/23 [place] [address] [place] [address] Consulting Physician Hematology and Oncology 03/22/24 Nicole Sadler LSW Landing Scaler Simulation Educator 04/04/24 Chio Motley MD Consulting Physician Hematology and Oncology 04/12/24 Software Development Specialist Relationship Specialty Start Date End Date Chandler Calzada APRN-OUTSIDE INDUSTRIAL SALES REPRESENTATIVE [address] After [place] [address] PCP - General 08/18/16 Chava Edwards MD 5133 [facility], [address] [address] Consulting Physician Hematology and Oncology 12/25/23 [place] [address] [place] [address] Consulting Physician Hematology and Oncology 03/22/24 Nicole Sadler LSW Landing Scaler Simulation Educator 04/04/24 Chio Motley MD Consulting Physician Hematology and Oncology 04/12/24 Software Development Specialist Relationship Specialty Start Date End Date Chandler Calzada PRESIDENT EDUCATIONAL INSTITUTION-OUTSIDE INDUSTRIAL SALES REPRESENTATIVE [address] After [place] [address] PCP - General 08/18/16 Chava Edwards MD 5133 [facility], [address] [address] Consulting Physician Hematology and Oncology 12/25/23 [place] [address] [address] [place] [id number] Consulting Physician Hematology and Oncology 03/22/24 Software Development Specialist Relationship Specialty Start Date End Date Chandler Calzada, PRESIDENT EDUCATIONAL INSTITUTION-OUTSIDE INDUSTRIAL SALES REPRESENTATIVE [address] After Hours Family Medicine [place], [place] [id number] PCP - General 08/18/16 Chava Edwards MD 5133 [facility], [address] [address] Consulting Physician Hematology and Oncology 12/25/23 [place] [address] [address] [place], [place] [id number] Consulting Physician Hematology and Oncology 03/22/24 Software Development Specialist Relationship Specialty Start Date End Date Chandler Calzada, PRESIDENT EDUCATIONAL INSTITUTION-OUTSIDE INDUSTRIAL SALES REPRESENTATIVE [address] After Hours Family [place], [place] [id number] PCP - General 08/18/16 Chava Edwards MD 5133 [facility], [address] [address] Consulting Physician Hematology and Oncology 12/25/23 [place] [address] [place] [address] Consulting Physician Hematology and Oncology 03/22/24 Software Development Specialist Relationship Specialty Start Date End Date Chandler Calzada, PRESIDENT EDUCATIONAL INSTITUTION-OUTSIDE INDUSTRIAL SALES REPRESENTATIVE [address] After Hours Family Medicine [place], [place] [phone] PCP - General 08/18/16 Chava Edwards MD 5133 [facility], [address] [address] Consulting Physician Hematology and Oncology 12/25/23 [place] [address] [place] [address] Consulting Physician Hematology and Oncology 03/22/24 Software Development Specialist Relationship Specialty Start Date End Date Chandler Calzada PRESIDENT EDUCATIONAL INSTITUTION-OUTSIDE INDUSTRIAL SALES REPRESENTATIVE [address] After Hours Family Medicine [place], [place] [id number] PCP - General 08/18/16 Chava Edwards MD 5[address] [facility], [address] [address] Consulting Physician Hematology and Oncology 12/25/23 [place] [address] [place] [address] Consulting Physician Hematology and Oncology 03/22/24 Software Development Specialist Relationship Specialty Start Date End Date Chandler Calzada, PRESIDENT EDUCATIONAL INSTITUTION-OUTSIDE INDUSTRIAL SALES REPRESENTATIVE [address] After Hours Family Medicine [place], [place] [id number] PCP - General 08/18/16 Chava Edwards MD 5133 [facility], [address] [address] Consulting Physician Hematology and Oncology 12/25/23 [place] [address] [place] [address] Consulting Physician Hematology and Oncology 03/22/24 Nicole Sadler, [facility] Landing Scaler Simulation Educator 04/04/24 Chio Motley MD Consulting Physician Hematology and Oncology 04/12/24 Software Development Specialist Relationship Specialty Start Date End Date Chandler Calzada, PRESIDENT EDUCATIONAL INSTITUTION-OUTSIDE INDUSTRIAL SALES REPRESENTATIVE [address] After [place] [address] PCP - General 08/18/16 Chava Edwards MD 5133 [facility], [address] [address] Consulting Physician Hematology and Oncology 12/25/23 [place] [address] [place] [address] Consulting Physician Hematology and Oncology 03/22/24 Nicole Sadler, [facility] Landing Scaler Simulation Educator 04/04/24 Chio Motley MD Consulting Physician Hematology and Oncology 04/12/24 Software Development Specialist Relationship Specialty Start Date End Date Chandler Calzada, PRESIDENT EDUCATIONAL INSTITUTION-OUTSIDE INDUSTRIAL SALES REPRESENTATIVE [address] After [place] [address] PCP - General 08/18/16 Chava Edwards MD 5133 [facility], [address] [address] Consulting Physician Hematology and Oncology 12/25/23 [place] [address] [place] [address] Consulting Physician Hematology and Oncology 03/22/24 Nicole Sadler, [facility] Landing Scaler Simulation Educator 04/04/24 Chio Motley MD Consulting Physician Hematology and Oncology 04/12/24 Software Development Specialist Relationship Specialty Start Date End Date Chandler Calzada PRESIDENT EDUCATIONAL INSTITUTION-OUTSIDE INDUSTRIAL SALES REPRESENTATIVE [address] After Hours Family Medicine [place], [place] [id number] PCP - General 08/18/16 Chava Edwards MD [address] [address] Consulting Physician Hematology and Oncology 12/25/23 [place] [address] [place] [address] Consulting Physician Hematology and Oncology 03/22/24 Nicole Sadler, [facility] Landing Scaler Simulation Educator 04/04/24 Chio Motley MD Consulting Physician Hematology and Oncology 04/12/24 [place] [address] [address] Door Paneler Cardiology 05/04/24 Software Development Specialist Relationship Specialty Start Date End Date Chandler Calzada APRN-OUTSIDE INDUSTRIAL SALES REPRESENTATIVE [address] After Hours Family Medicine [place], [place] [id number] PCP - General 08/18/16 Chava Edwards MD 5[address] [facility], [facility] [address] [place] [address] Consulting Physician Hematology and Oncology 12/25/23 [place] [address] [place] [address] Consulting Physician Hematology and Oncology 03/22/24 Nicole Sadler LSW Landing Scaler Simulation Educator 04/04/24 Chio Motley MD Consulting Physician Hematology and Oncology 04/12/24 Brenda Cortes MD [address] [place] [address] [address] [place] [address] Door Paneler Cardiology 05/04/24 Software Development Specialist Relationship Specialty Start Date End Date Chandler Calzada, PRESIDENT EDUCATIONAL INSTITUTION-OUTSIDE INDUSTRIAL SALES REPRESENTATIVE [address] [facility] Family Medicine [place], [place] [phone] PCP - General 08/18/16 Chava Edwards MD 5[address] [facility], [facility] 5 [place] [address] Consulting Physician Hematology and Oncology 12/25/23 [place] [address] [place] [address] Consulting Physician Hematology and Oncology 03/22/24 Nicole Sadler LSW Landing Scaler Simulation Educator 04/04/24 Chio Motley MD Consulting Physician Hematology and Oncology 04/12/24 Brenda Cortes MD [address] [place] [address] [address] [place] [address] Door Paneler Cardiology 05/04/24 Software Development Specialist Relationship Specialty Start Date End Date Chandler Calzada, PRESIDENT EDUCATIONAL INSTITUTION-OUTSIDE INDUSTRIAL SALES REPRESENTATIVE [address] After [place] [address] PCP - General 08/18/16 Chava Edwards MD 5[address] [facility], [facility] [address] [place] [address] Consulting Physician Hematology and Oncology 12/25/23 [place] [address] [place], [place] [id number] Consulting Physician Hematology and Oncology 03/22/24 Nicole Sadler [facility] Landing Scaler Simulation Educator 04/04/24 Chio Motley MD Consulting Physician Hematology and Oncology 04/12/24 [place] [address] [facility] 3 [place] [address] Door Paneler Cardiology 05/04/24 Software Development Specialist Relationship Specialty Start Date End Date Chandler Calzada, PRESIDENT EDUCATIONAL INSTITUTION-OUTSIDE INDUSTRIAL SALES REPRESENTATIVE [address] After [place] [address] PCP - General 08/18/16 Chava Edwards MD 5[address] [facility], [facility] [address] [place] [address] Consulting Physician Hematology and Oncology 12/25/23 [place] [address] [place] [address] Consulting Physician Hematology and Oncology 03/22/24 Nicole Sadler [facility] Landing Scaler Simulation Educator 04/04/24 Chio Motley MD Consulting Physician Hematology and Oncology 04/12/24 [place] [address] [facility] [facility] [address] [place] [address] Door Paneler Cardiology 05/04/24 Software Development Specialist Relationship Specialty Start Date End Date Chandler Calzada APRN-OUTSIDE INDUSTRIAL SALES REPRESENTATIVE [address] After [place] [address] PCP - General 08/18/16 Chava Edwards MD 5133 [facility], [address] [address] Consulting Physician Hematology and Oncology 12/25/23 [place] [address] [place] [address] Consulting Physician Hematology and Oncology 03/22/24 Nicole Sadler [facility] Landing Scaler Simulation Educator 04/04/24 Chio Motley MD Consulting Physician Hematology and Oncology 04/12/24 [place] [address] [facility] [address] [place] [address] Door Paneler Cardiology 05/04/24 Software Development Specialist Relationship Specialty Start Date End Date Chandler Calzada APRN-OUTSIDE INDUSTRIAL SALES REPRESENTATIVE [address] After Hours Family Medicine [place], [place] [id number] PCP - General 08/18/16 Chava Edwards MD 5133 [facility], [address] [id number] Consulting Physician Hematology and Oncology 12/25/23 [place] [address] [place] [address] Consulting Physician Hematology and Oncology 03/22/24 Nicole Sadler, [facility] Landing Scaler Simulation Educator 04/04/24 Chio Motley MD Consulting Physician Hematology and Oncology 04/12/24 Brenda Cortes MD [address] [place] [address] [address] [place], [place] [id number] Door Paneler Cardiology 05/04/24 Software Development Specialist Relationship Specialty Start Date End Date Chandler Calzada PRESIDENT EDUCATIONAL INSTITUTION-OUTSIDE INDUSTRIAL SALES REPRESENTATIVE [address] [facility] Family [place], [place] [id number] PCP - General 08/18/16 Chava Edwards MD 5133 [facility], [address] [place] [address] Consulting Physician Hematology and Oncology 12/25/23 [place] [address] [place] [address] Consulting Physician Hematology and Oncology 03/22/24 Nicole Sadler, [facility] Landing Scaler Simulation Educator 04/04/24 Chio Motley MD Consulting Physician Hematology and Oncology 04/12/24 Brenda Cortes MD [address] [place] [address] 3 [place], [place] [id number] Door Paneler Cardiology 05/04/24 Software Development Specialist Relationship Specialty Start Date End Date Chandler Calzada PRESIDENT EDUCATIONAL INSTITUTION-OUTSIDE INDUSTRIAL SALES REPRESENTATIVE [address] After [place] [address] PCP - General 08/18/16 Chava Edwards MD 5133 [facility], [address] [address] Consulting Physician Hematology and Oncology 12/25/23 [place] [address] [place] [address] Consulting Physician Hematology and Oncology 03/22/24 Nicole Sadler, [facility] Landing Scaler Simulation Educator 04/04/24 Chio Motley MD Consulting Physician Hematology and Oncology 04/12/24 [place] [address] [address] Door Paneler Cardiology 05/04/24 Software Development Specialist Relationship Specialty Start Date End Date Chandler Calzada, PRESIDENT EDUCATIONAL INSTITUTION-OUTSIDE INDUSTRIAL SALES REPRESENTATIVE [address] After [place] [address] PCP - General 08/18/16 Chava Edwards MD 5133 [facility], [address] [address] Consulting Physician Hematology and Oncology 12/25/23 [place] [address] [place] [address] Consulting Physician Hematology and Oncology 03/22/24 Nicole Sadler, [facility] Landing Scaler Simulation Educator 04/04/24 Chio Motley MD Consulting Physician Hematology and Oncology 04/12/24 Brenda Cortes MD [address] [place] [address] [address] [place] [address] Door Paneler Cardiology 05/04/24 Software Development Specialist Relationship Specialty Start Date End Date Chandler Calzada APRN-OUTSIDE INDUSTRIAL SALES REPRESENTATIVE [address] After [place] [address] PCP - General 08/18/16 Chava Edwards MD 5133 [facility], [address] [address] Consulting Physician Hematology and Oncology 12/25/23 [place] [address] [place] [address] Consulting Physician Hematology and Oncology 03/22/24 Nicole Sadler LSW Landing Scaler Simulation Educator 04/04/24 Chio Motley MD Consulting Physician Hematology and Oncology 04/12/24 Brenda Cortes MD [address] [place] [address] [address] [place] [address] Door Paneler Cardiology 05/04/24 Software Development Specialist Relationship Specialty Start Date End Date Chandler Calzada APRN-OUTSIDE INDUSTRIAL SALES REPRESENTATIVE [address] After Hours Family Medicine [place], [place] [id number] PCP - General 08/18/16 Chava Edwards MD 5133 [facility], [address] [address] Consulting Physician Hematology and Oncology 12/25/23 [place] [address] [place] [address] Consulting Physician Hematology and Oncology 03/22/24 Nicole Sadler, [facility] Landing Scaler Simulation Educator 04/04/24 Chio Motley MD Consulting Physician Hematology and Oncology 04/12/24 Brenda Cortes MD [address] [place] [address] [address] [place], [place] [id number] Door Paneler Cardiology 05/04/24 Software Development Specialist Relationship Specialty Start Date End Date Chandler Calzada, PRESIDENT EDUCATIONAL INSTITUTION-OUTSIDE INDUSTRIAL SALES REPRESENTATIVE [address] [facility] Family Medicine [place], [place] [id number] PCP - General 08/18/16 Chava Edwards MD 5133 [facility], [address] [place] [address] Consulting Physician Hematology and Oncology 12/25/23 [place] [address] [place] [address] Consulting Physician Hematology and Oncology 03/22/24 Nicole Sadler, [facility] Landing Scaler Simulation Educator 04/04/24 Ciho Motley MD Consulting Physician Hematology and Oncology 04/12/24 Brenda Cortes MD [address] [place] [address] [address] [place] [address] Door Paneler Cardiology 05/04/24 Software Development Specialist Relationship Specialty Start Date End Date Chandler Calzada PRESIDENT EDUCATIONAL INSTITUTION-OUTSIDE INDUSTRIAL SALES REPRESENTATIVE [address] After [place] [address] PCP - General 08/18/16 Chava Edwards MD 5133 [facility], [facility] 5 [place] [address] Consulting Physician Hematology and Oncology 12/25/23 [place] [address] [place], [place] [address] Consulting Physician Hematology and Oncology 03/22/24 Nicole Sadler [facility] Landing Scaler Simulation Educator 04/04/24 Chio Motley MD Consulting Physician Hematology and Oncology 04/12/24 [place] [address] [address] Door Paneler Cardiology 05/04/24 Software Development Specialist Relationship Specialty Start Date End Date Chandler Calzada APRN-OUTSIDE INDUSTRIAL SALES REPRESENTATIVE [address] After [place] [address] PCP - General 08/18/16 Chava Edwards MD 5133 [facility], [address] [address] Consulting Physician Hematology and Oncology 12/25/23 [place] [address] [place] [address] Consulting Physician Hematology and Oncology 03/22/24 Nicole Sadler [facility] Landing Scaler Simulation Educator 04/04/24 Chio Motley MD Consulting Physician Hematology and Oncology 04/12/24 Brenda Cortes MD [address] [place] [address] [address] [place] [address] Door Paneler Cardiology 05/04/24 Software Development Specialist Relationship Specialty Start Date End Date Chandler Calzada APRN-OUTSIDE INDUSTRIAL SALES REPRESENTATIVE [address] After [place] [address] PCP - General 08/18/16 Chava Edwards MD 5133 [facility], [address] [address] Consulting Physician Hematology and Oncology 12/25/23 [place] [address] [place] [address] Consulting Physician Hematology and Oncology 03/22/24 Nicole Sadler, [facility] Landing Scaler Simulation Educator 04/04/24 Chio Motley MD Consulting Physician Hematology and Oncology 04/12/24 Brenda Cortes MD [address] [place] [address] [address] [place] [address] Door Paneler Cardiology 05/04/24 Software Development Specialist Relationship Specialty Start Date End Date Chandler Calzada APRN-OUTSIDE INDUSTRIAL SALES REPRESENTATIVE [address] After [place] [address] PCP - General 08/18/16 Chava Edwards MD 5133 [facility], [address] [place] [address] Consulting Physician Hematology and Oncology 12/25/23 [place] [address] [place] [address] Consulting Physician Hematology and Oncology 03/22/24 Nicole Sadler LSW Landing Scaler Simulation Educator 04/04/24 Chio Motley MD Consulting Physician Hematology and Oncology 04/12/24 Brenda Cortes MD [address] [place] [address] [address] [place] [address] Door Paneler Cardiology 05/04/24 Software Development Specialist Relationship Specialty Start Date End Date Chandler Calzada, PRESIDENT EDUCATIONAL INSTITUTION-OUTSIDE INDUSTRIAL SALES REPRESENTATIVE [address] [facility] After [facility] Family Medicine [place], [place] [id number] PCP - General 08/18/16 Chava Edwards MD 5133 [facility], [address] [address] Consulting Physician Hematology and Oncology 12/25/23 [place] [address] [place] [address] Consulting Physician Hematology and Oncology 03/22/24 Nicole Sadler LSW Landing Scaler Simulation Educator 04/04/24 Chio Motley MD Consulting Physician Hematology and Oncology 04/12/24 Brenda Cortes MD [address] [place] [address] [address] [place] [address] Door Paneler Cardiology 05/04/24 Software Development Specialist Relationship Specialty Start Date End Date Chandler Calzada APRN-OUTSIDE INDUSTRIAL SALES REPRESENTATIVE [address] After Hours Family Medicine [place], [place] [id number] PCP - General 08/18/16 Chava Edwards MD 5133 [facility], [facility] 5 [place] [address] Consulting Physician Hematology and Oncology 12/25/23 [place] [address] [address] [place], [place] [address] Consulting Physician Hematology and Oncology 03/22/24 Nicole Sadler LSW Landing Scaler Simulation Educator 04/04/24 Chio Motley MD Consulting Physician Hematology and Oncology 04/12/24 [place] [address] [address] Door Paneler Cardiology 05/04/24 Software Development Specialist Relationship Specialty Start Date End Date Chandler Calzada APRN-OUTSIDE INDUSTRIAL SALES REPRESENTATIVE [address] After [place] [address] PCP - General 08/18/16 Chava Edwards MD 5133 [facility], [facility] 5 [place] [address] Consulting Physician Hematology and Oncology 12/25/23 [place] [address] [address] [place], [place] [address] Consulting Physician Hematology and Oncology 03/22/24 Nicole Sadler, [facility] Landing Scaler Simulation Educator 04/04/24 Chio Motley MD Consulting Physician Hematology and Oncology 04/12/24 Brenda Cortes MD [address] [place] [address] [address] [place] [address] Door Paneler Cardiology 05/04/24 Software Development Specialist Relationship Specialty Start Date End Date Chandler Calzada APRN-OUTSIDE INDUSTRIAL SALES REPRESENTATIVE [address] After Hours Family Medicine [place], [place] [id number] PCP - General 08/18/16 Chava Edwards MD 5133 [facility], [facility] 5 [place] [address] Consulting Physician Hematology and Oncology 12/25/23 [place] [address] [place] [address] Consulting Physician Hematology and Oncology 03/22/24 Nicole Sadler, [facility] Landing Scaler Simulation Educator 04/04/24 Chio Motley MD Consulting Physician Hematology and Oncology 04/12/24 Brenda Cortes MD [address] [place] [address] [address] [place] [address] Door Paneler Cardiology 05/04/24 Software Development Specialist Relationship Specialty Start Date End Date Chandler Calzada APRN-OUTSIDE INDUSTRIAL SALES REPRESENTATIVE [address] After [place] [address] PCP - General 08/18/16 Chava Edwards MD 5133 [facility], [facility] 5 [place] [address] Consulting Physician Hematology and Oncology 12/25/23 [place] [address] [place] [address] Consulting Physician Hematology and Oncology 03/22/24 Nicole Sadler [facility] Landing Scaler Simulation Educator 04/04/24 Chio Motley MD Consulting Physician Hematology and Oncology 04/12/24 Brenda Cortes MD [address] [place] [address] [address] [place] [address] Door Paneler Cardiology 05/04/24 Software Development Specialist Relationship Specialty Start Date End Date Chandler Calzada, PRESIDENT EDUCATIONAL INSTITUTION-OUTSIDE INDUSTRIAL SALES REPRESENTATIVE [address] [facility] Family Medicine [place], [place] [id number] PCP - General 08/18/16 Chava Edwards MD 5133 [facility], [facility] 5 [place] [address] Consulting Physician Hematology and Oncology 12/25/23 [place] [address] [place] [address] Consulting Physician Hematology and Oncology 03/22/24 Nicole Sadler [facility] Landing Scaler Simulation Educator 04/04/24 Chio Motley MD Consulting Physician Hematology and Oncology 04/12/24 Brenda Cortes MD [address] [place] [address] [address] [place] [address] Door Paneler Cardiology 05/04/24 Software Development Specialist Relationship Specialty Start Date End Date Chandler Calzada APRN-OUTSIDE INDUSTRIAL SALES REPRESENTATIVE [address] After [place] [address] PCP - General 08/18/16 Chava Edwards MD 5133 [facility], [facility] 5 [place] [address] Consulting Physician Hematology and Oncology 12/25/23 [place] [address] [place] [address] Consulting Physician Hematology and Oncology 03/22/24 Nicole Sadler [facility] Landing Scaler Simulation Educator 04/04/24 Chio Motley MD Consulting Physician Hematology and Oncology 04/12/24 [place] [address] [address] Door Paneler Cardiology 05/04/24 Software Development Specialist Relationship Specialty Start Date End Date Chandler Calzada APRN-OUTSIDE INDUSTRIAL SALES REPRESENTATIVE [address] After [place] [address] PCP - General 08/18/16 Chava Edwards MD 5133 [facility], [facility] 5 [place], [place] [address] Consulting Physician Hematology and Oncology 12/25/23 [place] [address] [place], [place] [address] Consulting Physician Hematology and Oncology 03/22/24 Nicole Sadler, [facility] Landing Scaler Simulation Educator 04/04/24 Chio Motley MD Consulting Physician Hematology and Oncology 04/12/24 Brenda Cortes MD [address] [place] [address] [address] [place] [id number] Door Paneler Cardiology 05/04/24 Software Development Specialist Relationship Specialty Start Date End Date Chandler Calzada APRN-OUTSIDE INDUSTRIAL SALES REPRESENTATIVE [address] After [place] [address] PCP - General 08/18/16 Chava Edwards MD 5133 [facility], [address] [address] Consulting Physician Hematology and Oncology 12/25/23 [place] [address] [place] [address] Consulting Physician Hematology and Oncology 03/22/24 Nicole Sadler, [facility] Landing Scaler Simulation Educator 04/04/24 Chio Motley MD Consulting Physician Hematology and Oncology 04/12/24 Brenda Cortes MD [address] [place] [address] [address] [place] [address] Door Paneler Cardiology 05/04/24 Software Development Specialist Relationship Specialty Start Date End Date Chandler Calzada APRN-OUTSIDE INDUSTRIAL SALES REPRESENTATIVE [address] After [place] [address] PCP - General 08/18/16 Chava Edwards MD 5133 [facility], [address] [address] Consulting Physician Hematology and Oncology 12/25/23 [place] [address] [place] [address] Consulting Physician Hematology and Oncology 03/22/24 Nicole Sadler, [facility] Landing Scaler Simulation Educator 04/04/24 Chio Motley MD Consulting Physician Hematology and Oncology 04/12/24 Brenda Cortes MD [address] [place] [address] [address] [place] [address] Door Paneler Cardiology 05/04/24 Software Development Specialist Relationship Specialty Start Date End Date Chandler Calzada, PRESIDENT EDUCATIONAL INSTITUTION-OUTSIDE INDUSTRIAL SALES REPRESENTATIVE [address] [facility] After [facility] Family Medicine [place], [place] [id number] PCP - General 08/18/16 Chava Edwards MD 5133 [facility], [address] [place] [address] Consulting Physician Hematology and Oncology 12/25/23 [place] [address] [place] [address] Consulting Physician Hematology and Oncology 03/22/24 Nicole Sadler, [facility] Landing Scaler Simulation Educator 04/04/24 Chio Motley MD Consulting Physician Hematology and Oncology 04/12/24 Brenda Cortes MD [address] [place] [address] [address] [place] [address] Door Paneler Cardiology 05/04/24 Team Status: Inactive Member Role Status Dates Chandler Calzada TROUBLE LINEMAN, TROUBLE LINEMAN-C Primary Care Provider Active Start: September 28, 2024 End: September 28, 2024 Chandler Calzada TROUBLE LINEMAN, TROUBLE LINEMAN-C Attending Provider Active Start: September 28, 2024 End: September 28, 2024 Chandler Calzada TROUBLE LINEMAN, TROUBLE LINEMAN-C Referring Provider Active Start: September 28, 2024 End: September 28, 2024 Team Status: Inactive Member Role Status Dates Chandler Calzada TROUBLE LINEMAN, TROUBLE LINEMAN-C Primary Care Provider Active Start: November 28, 2024 End: November 28, 2024 Chandler Calzada TROUBLE LINEMAN, TROUBLE LINEMAN-C Attending Provider Active Start: November 28, 2024 End: November 28, 2024 Chandler Calzada TROUBLE LINEMAN, TROUBLE LINEMAN-C Referring Provider Active Start: November 28, 2024 End: November 28, 2024 Software Development Specialist Relationship Specialty Start Date End Date Chandler Calzada APRN-OUTSIDE INDUSTRIAL SALES REPRESENTATIVE [address] [place] [address] PCP - General 08/18/16 Chava Edwards MD 5133 [facility], [facility] 5 [place] [address] Consulting Physician Hematology and Oncology 12/25/23 [place] [address] [place] [address] Consulting Physician Hematology and Oncology 03/22/24 Nicole Sadler LSW Landing Scaler Simulation Educator 04/04/24 Chio Motley MD Consulting Physician Hematology and Oncology 04/12/24 [place] [address] [id number] Door Paneler Cardiology 05/04/24 Software Development Specialist Relationship Specialty Start Date End Date Chandler Calzada APRN-CNP [address] After Hours Family [place], [place] [id number] PCP - General 08/18/16 Chava Edwards MD 5133 [facility], [facility] 5 [place] [address] Consulting Physician Hematology and Oncology 12/25/23 [place] [address] [place] [address] Consulting Physician Hematology and Oncology 03/22/24 Nicole Sadler [facility] Landing Scaler Simulation Educator 04/04/24 Chio Motley MD Consulting Physician Hematology and Oncology 04/12/24 Brenda Cortes MD [address] [place] [address] Door Paneler Cardiology 05/04/24 Software Development Specialist Relationship Specialty Start Date End Date Chandler Calzada, PRESIDENT EDUCATIONAL INSTITUTION-OUTSIDE INDUSTRIAL SALES REPRESENTATIVE [address] [facility] Family Medicine [place], [place] [id number] PCP - General 08/18/16 Chava Edwards MD 5133 [facility], [address] [address] Consulting Physician Hematology and Oncology 12/25/23 [place] [address] [place] [address] Consulting Physician Hematology and Oncology 03/22/24 Nicole Sadler LSW Landing Scaler Simulation Educator 04/04/24 Chio Motley MD Consulting Physician Hematology and Oncology 04/12/24 Brenda Cortes MD [address] [place] [address] [address] [place] [address] Door Paneler Cardiology 05/04/24 Software Development Specialist Relationship Specialty Start Date End Date Chandler Calzada APRN-OUTSIDE INDUSTRIAL SALES REPRESENTATIVE [address] After Hours Family Medicine [place], [place] [id number] PCP - General 08/18/16 Chava Edwards MD 5133 [facility], [address] [address] Consulting Physician Hematology and Oncology 12/25/23 [place] [address] [place] [address] Consulting Physician Hematology and Oncology 03/22/24 Nicole Sadler, [facility] Landing Scaler Simulation Educator 04/04/24 Chio Motley MD Consulting Physician Hematology and Oncology 04/12/24 Brenda Cortes MD [address] [place] [address] [address] [place] [address] Door Paneler Cardiology 05/04/24 Software Development Specialist Relationship Specialty Start Date End Date Chandler Calzada APRN-OUTSIDE INDUSTRIAL SALES REPRESENTATIVE [address] After [place] [address] PCP - General 08/18/16 Chava Edwards MD 5133 [facility], [address] [address] Consulting Physician Hematology and Oncology 12/25/23 [place] [address] [place] [address] Consulting Physician Hematology and Oncology 03/22/24 Nicole Sadler LSW Landing Scaler Simulation Educator 04/04/24 Chio Motley MD Consulting Physician Hematology and Oncology 04/12/24 [place] [address] [facility] [address] [place] [address] Door Pan[employer] Cardiology 05/04/24 Scheduled Active and Recently Administ ered Medications (unrecognized section and content) Medication Order 08/22/2024 08/23/2024 08/24/2024 ceFAZolin (Ancef) 2 g in dextrose (iso) IV 100 mL 2 g, intravenous, Administer over 30 Minutes, Once, On Thu08/24/24 at 0630, For 1 dose, Preprocedure, Administer within 60 minutes prior to incision. premix bag, Dosing of this medication varies based on severity of illness. Does this patient have sepsis or concern for sepsis (probable or documented infection plus systemic manifestations of infection)? No, Suspected Indication (Select all that apply): Surgical Prophylaxis, Indications: Surgical Prophylaxis 0630 (Due) lidocaine PF (Xylocaine) 10 mg/mL (1 %) injection 1 mg 1 mg (0.1 mL), subcutaneous, Once, On Thu08/24/24 at 1000, For 1 dose, Recovery (only), To be used for IV insertion ONLY 1000 (Due) oxygen (O2) therapy inhalation, Continuous - Inhalation, First dose on Thu08/24/24 at 1000, Recovery (only), Device: Nasal Cannula, Rate in liters per minute: Other, Custom Value: 1-6 LPM, Keep O2 Sat Above: 92% 1000 (Due)2000 (Due) Continuous Medication Order 08/22/2024 08/23/2024 08/24/2024 lactated Ringer's infusion 100 mL/hr, intravenous, Continuous, Starting on Thu08/24/24 at 1000, For 1 hour, Recovery (only) 1000 (Due) PRN Medication Order 08/22/2024 08/23/2024 08/24/2024 acetaminophen (Tylenol) tablet 650 mg 650 mg, oral, Every 4 hours PRN, pain mild (1-3), first line, Starting on Thu08/24/24 at 0938, Recovery (only), When able to take oral medications., If ordered PRN for pain, nurse is permitted to administer this medication for higher pain scores based on patient preference? Yes bupivacaine PF 0.25 % (Marcaine) 0.25 % (2.5 mg/mL) injection (CANCELED) As needed, Starting on Thu08/24/24 at 0850, Intraprocedure 0850 (Given - Provid er: Celina Seymour RN - Comment: local) HYDROmorphone (Dilaudid) injection 0.2 mg 0.2 mg, intravenous, Every 5 min PRN, pain moderate (4-6), first line, Starting on Thu08/24/24 at 0938, Recovery (only), Max total of 4 mg regardless of dose. HYDROmorphone (Dilaudid) injection 0.5 mg 0.5 mg, intravenous, Every 5 min PRN, pain severe (7-10), first line, Starting on Thu08/24/24 at 0938, Recovery (only), Max total of 4 mg regardless of dose. isosulfan blue (Lumphazurin) 1 % injection (CANCELED) As needed, Starting on Thu08/24/24 at 0828, Intraprocedure 0828 (Given - Provid er: Josie Carpenter MD) labetaloL (Normodyne,Trandate) injection 5 mg 5 mg, intravenous, Administer over 1 Minutes, Once as needed, systolic blood pressure greater than 180 mmHg, dystolic blood pressure greater than 100 mmHg and heart rate greater than 60 BPM, Starting on Thu08/24/24 at 0938, For 1 dose, Recovery (only) lidocaine (Xylocaine) 10 mg/mL (1 %) injection (CANCELED) As needed, Starting on Thu08/24/24 at 0850, Intraprocedure 0850 (Given - Provid er: Celina Seymour RN - Comment: local) ondansetron (Zofran) injection 4 mg 4 mg, intravenous, Once as needed, nausea/vomiting, first line, Starting on Thu08/24/24 at 0938, For 1 dose, Recovery (only), When administering via IV Push, administer over 3-5 minutes. oxyCODONE (Roxicodone) immediate release tablet 10 mg 10 mg, oral, Every 4 hours PRN, pain severe (7-10), second line, Starting on Thu08/24/24 at 0938, Recovery (only), When able to take oral medications., If ordered PRN for pain, nurse is permitted to administer this medication for higher pain scores based on patient preference? Yes oxyCODONE (Roxicodone) immediate release tablet 5 mg 5 mg, oral, Every 4 hours PRN, pain moderate (4-6), second line, Starting on Thu08/24/24 at 0938, Recovery (only), When able to take oral medications., If ordered PRN for pain, nurse is permitted to administer this medication for higher pain scores based on patient preference? Yes promethazine (Phenergan) 6.25 mg in sodium chloride 0.9% 50 mL IV 6.25 mg, intravenous, Administer over 15 Minutes, Once as needed, Nausea/vomiting, second line, Starting on Thu08/24/24 at 0938, For 1 dose, Recovery (only) sodium chloride 0.9 % irrigation solution (CANCELED) As needed, Starting on Thu08/24/24 at 0829, Intraprocedure 0829 (Given - Provid er: Celina Seymour RN - Comment: room temp irrigation) FOR RECORDS PERTAINING TO PATIENTS WHO ARE OR HAVE BEEN ENROLLED IN A CHEMICAL DEPENDENCY/SUBSTANCEABUSE PROGRAM, SOME INFORMATION MAY BE OMITTED. This clinical summary was aggregated from multiple sources. Caution should be exercised in using it in the provision of clinical care. This summary normalizes information from multiple sources, and as a consequence, information in this document may materially change the coding, format and clinical context of patient data. In addition, data may be omitted in some cases. CLINICAL DECISIONS SHOULD BE BASED ON THE PRIMARY CLINICAL RECORDS. [employer] provides no warranty or guarantee of the accuracy or completeness of information in this document.
== END | disposition home or self-care (01) ==
PROVIDERS: PCP Nurse Practitioner; Referring Provider Nurse Practitioner; Visit Provider Nurse Practitioner
DX: N30.90 Cystitis, unspecified without hematuria (principal)
CPT/HCPCS: 87086; 87088; 87186